=== PATIENT | male | born 1965 | race Caucasian/White ===

== ENCOUNTER 2016-12-13 12:53 | Emergency (ER) | payer SELFPAY ==
[~2016-12-13] VITALS: Ht 185.4 cm; Wt 58.6 kg
[~2016-12-13 12:53] MED LIST: MESA800 PO; OXYC5 PO; PANT40IN3 PO; PRED20 PO; PROM25TA5 PO; ZOFR8TAB4 PO
[2016-12-13 13:02] VITALS: BP 115/80; PULSE 107; RESP 16; TEMP 98.3; O2SAT 98
[2016-12-13 13:09] VITALS: BP 124/73; PULSE 96; RESP 18; O2SAT 100
[2016-12-13] MEDS ORDERED: ONDANSETRON HCL 4 MG/2 ML VIAL IVP ONE (13:30)
[2016-12-13] MEDS ORDERED: SODIUM CHLORIDE 0.9% FLUSH 10 ML FLUSH IV FLUSH PRN (13:30)
[2016-12-13] MEDS ORDERED: SODIUM CHLOR 0.9% 1000 ML INJ 1,000 ML IV ONE (13:30)
--- NOTE | 2016-12-13 13:31 | PD ---
HPI Chief Complaint: Abdominal Pain Time Seen by Provider: 13:15 Travel History International Travel<30 days: No Contact w/Intl Traveler<30days: No Traveled to known affect area: No History of Present Illness HPI This patient complains of abdominal pain. Location is diffuse throughout the entire abdomen. He feels distended. He has history of Crohn's disease and is a daily alcohol drinker. He admits to drinking alcohol today. Denies drug use. He's not had vomiting or diarrhea or bleeding or fever. Symptoms severity is moderate. No alleviating factors. Duration is 3 days PFSH Past Medical History Hx Anticoagulant Therapy: No Asthma: Yes Blood Disorders: No Anxiety: Yes Depression: Yes Cancer: No Cardiovascular Problems: No COPD: No Diabetes: No Diminished Hearing: No Endocrine: No Gastrointestinal Disorders: Yes (CROHNS) Genitourinary: No Immune Disorder: No Inguinal Hernia: Yes Implanted Vascular Access Dvce: No Musculoskeletal: Yes (BILAT KNEES.) Neurologic: No Psychiatric: Yes (denies currently ) Reproductive: No Respiratory: Yes Immunizations Current: Yes Pancreatitis: Yes Tetanus Vaccination: Unknown Influenza Vaccination: No Past Surgical History Abdominal Surgery: Yes (COLON RESECTION DUE TO CROHNS) Pacemaker: No Tonsillectomy: Yes Other Surgery: Yes (TONSILECTOMY, CHRON'S DISEASE) Social History Alcohol Use: Yes (2 DAILY) Tobacco Use: Yes (1 1/2 PPD) Substance Use: No Allergies-Medications (Allergen,Severity, Reaction): Coded Allergies: Tetanus Toxoid (Verified Allergy, Severe, Nausea/Vomiting, 12/13/16) Reported Meds & Prescriptions Reported Meds & Active Scripts Active No Active Prescriptions or Reported Medications Review of Systems General / Constitutional: No: Fever Eyes: No: Visual changes HENT: No: Headaches Cardiovascular: No: Chest Pain or Discomfort Respiratory: No: Shortness of Breath Gastrointestinal: Positive: Nausea, Abdominal Pain Genitourinary: No: Dysuria Musculoskeletal: No: Pain Skin: No Rash Neurologic: No: Weakness Psychiatric: Positive: Substance Abuse, No: Depression Endocrine: No: Polydipsia Hematologic/Lymphatic: No: Easy Bruising Physical Exam Narrative GENERAL: Well-nourished, well-developed patient in no apparent distress. SKIN: Focused skin assessment reveals no rash and nodules. Skin is Warm and dry. HEAD: Atraumatic. Normocephalic. EYES: Pupils equal and round. No scleral icterus. No injection or drainage. ENT: No nasal bleeding or discharge. Mucous membranes pink and moist. NECK: Trachea midline. No JVD. CARDIOVASCULAR: Regular rate and rhythm. No murmur appreciated. RESPIRATORY: No accessory muscle use. Clear to auscultation. Breath sounds equal bilaterally. GASTROINTESTINAL: Abdomen soft, mild distention and vague tenderness throughout but no rebound or guarding. Hepatic and splenic margins not palpable. MUSCULOSKELETAL: No obvious deformities. No clubbing. No cyanosis. No edema. NEUROLOGICAL: Awake and alert. No obvious cranial nerve deficits. Motor grossly within normal limits. Normal speech. PSYCHIATRIC: Appropriate mood and affect; insight and judgment normal. Data Data Last Documented VS Vital Signs Date Time Temp Pulse Resp B/P Pulse Ox O2 Delivery O2 Flow Rate FiO2 12/13/16 14:26 88 20 118/61 99 Room Air 12/13/16 13:02 98.3 Orders Complete Blood Count With Diff (12/13/16 13:22) Comprehensive Metabolic Panel (12/13/16 13:22) Lipase (12/13/16 13:22) Prothrombin Time / Inr (Pt) (12/13/16 13:22) Act Partial Throm Time (Ptt) (12/13/16 13:22) Ct Abd/Pel W Iv Contrast(Rout) (12/13/16 13:22) Iv Access Insert/Monitor (12/13/16 13:22) Ecg Monitoring (12/13/16 13:22) Oximetry (12/13/16 13:22) Sodium Chloride 0.9% Flush (Ns Flush) (12/13/16 13:30) Alcohol (Ethanol) (12/13/16 13:22) Sodium Chlor 0.9% 1000 Ml Inj (Ns 1000 M (12/13/16 13:30) Ondansetron Inj (Zofran Inj) (12/13/16 13:30) Iohexol 350 Inj (Omnipaque 350 Inj) (12/13/16 14:15) Potassium Chloride Eff (K-Lyte Cl Eff) (12/13/16 15:15) Labs Laboratory Tests Test 12/13/16 13:30 White Blood Count 13.7 TH/MM3 Red Blood Count 3.53 MIL/MM3 Hemoglobin 10.6 GM/DL Hematocrit 32.7 % Mean Corpuscular Volume 92.6 FL Mean Corpuscular Hemoglobin 30.1 PG Mean Corpuscular Hemoglobin 32.5 % Concent Red Cell Distribution Width 15.3 % Platelet Count 236 TH/MM3 Mean Platelet Volume 8.2 FL Neutrophils (%) (Auto) 77.2 % Lymphocytes (%) (Auto) 10.4 % Monocytes (%) (Auto) 7.8 % Eosinophils (%) (Auto) 1.9 % Basophils (%) (Auto) 2.7 % Neutrophils # (Auto) 10.5 TH/MM3 Lymphocytes # (Auto) 1.4 TH/MM3 Monocytes # (Auto) 1.1 TH/MM3 Eosinophils # (Auto) 0.3 TH/MM3 Basophils # (Auto) 0.4 TH/MM3 CBC Comment DIFF FINAL Differential Comment Prothrombin Time 14.3 SEC Prothromb Time International 1.3 RATIO Ratio Activated Partial 33.3 SEC Thromboplast Time Sodium Level 143 MEQ/L Potassium Level 2.7 MEQ/L Chloride Level 109 MEQ/L Carbon Dioxide Level 21.4 MEQ/L Anion Gap 13 MEQ/L Blood Urea Nitrogen 6 MG/DL Creatinine 0.63 MG/DL Estimat Glomerular Filtration 134 ML/MIN Rate Random Glucose 81 MG/DL Calcium Level 7.3 MG/DL Protein Corrected Calcium 7.6 MG/DL Total Bilirubin 0.5 MG/DL Aspartate Amino Transf 72 U/L (AST/SGOT) Alanine Aminotransferase 38 U/L (ALT/SGPT) Alkaline Phosphatase 356 U/L Total Protein 6.6 GM/DL Albumin 2.6 GM/DL Lipase 131 U/L Ethyl Alcohol Level 237 MG/DL MDM Medical Decision Making Medical Screen Exam Complete: Yes Emergency Medical Condition: Yes Medical Record Reviewed: Yes Differential Diagnosis Colitis, ileus, cholecystitis Narrative Course I have reviewed the patient's electronic medical record. He's been here for abdominal pain multiple times. He has had colitis and pancreatitis in the past IV placed CBC is reviewed Metabolic profile shows hypokalemia of 2.7 which is replaced orally LFTs show minor elevation of transaminase with normal bilirubin Lipase is normal Coagulation studies are normal Alcohol level is elevated indicating acute intoxication CT of abdomen and pelvis with IV contrast shows moderate ascites with no obstruction or intestinal inflammation I gave him IV Zofran and 1 L normal saline IV bolus Potassium is replaced and we discussed his drinking with liver damage causing ascites Stable for outpatient follow-up Patient downplays his drinking in shows no interest in considering rehabilitation or cutting back Therefore expect his disease to progress Should follow-up with primary care and GI Diagnosis Primary Impression: Ascites due to alcoholic cirrhosis Additional Impressions: Alcohol intoxication Qualified Code: F10.920 - Alcohol intoxication, uncomplicated Hypokalemia Additional Instructions: The patient was advised to follow up with their primary care physician and GI physician return if they worsen. Consider [facility] alcohol rehabilitation services Avoid Tylenol and Motrin containing products Med/Other Pt SpecificInfo: Prescription(s) given Scripts Potassium Chloride ER (K-Tab)20 Meq Tab40 Meq PO ONCE #2 TAB Ref 0 Prov:Delfino Hodges MD 12/13/16 Disposition: 01 DISCHARGE HOME Condition: Stable Delfino Hodges MD Dec 13, 2016 13:31
[2016-12-13 13:49] LABS: AUTOMATED NEUTROPHIL # 10.5 TH/MM3 (1.8-7.7); BASOPHIL # 0.4 TH/MM3 (0-0.2); BASOPHIL % 2.7 % (0.0-2.0); EOSINOPHIL # 0.3 TH/MM3 (0-0.4); EOSINOPHIL % 1.9 % (0.0-4.0); HEMATOCRIT 32.7 % (39.0-51.0); LYMPH % 10.4 % (9.0-44.0); LYMPHOCYTE # 1.4 TH/MM3 (1.0-4.8); MEAN CELL VOLUME 92.6 FL (80.0-100.0); MEAN CORPUSCULAR HEMOGLOBIN 30.1 PG (27.0-34.0); MEAN CORPUSCULAR HGB CONC 32.5 % (32.0-36.0); MONO % 7.8 % (0.0-8.0); NEUT % 77.2 % (16.0-70.0); PLATELET COUNT 236 TH/MM3 (150-450); RED BLOOD COUNT 3.53 MIL/MM3 (4.50-5.90); RED CELL DISTRIBUTION WIDTH 15.3 % (11.6-17.2); WHITE BLOOD COUNT 13.7 TH/MM3 (4.0-11.0)
[2016-12-13 13:50] VITALS: O2SAT 97
[2016-12-13 13:50] LABS: HEMO FLAGS DIFF FINAL
[2016-12-13 14:02] LABS: APTT (PATIENT) 33.3 SEC (24.3-30.1); INTERNATIONAL NORMALIZED RATIO 1.3 RATIO; PROTHROMBIN TIME - PATIENT 14.3 SEC (9.8-11.6)
[2016-12-13 14:11] LABS: BICARBONATE 21.4 MEQ/L (21.0-32.0); CALCIUM-PROTEIN CORRECTED 7.6 MG/DL (8.5-10.1); TOTAL BILIRUBIN ADULT 0.5 MG/DL (0.2-1.0)
[2016-12-13 14:13] LABS: POTASSIUM 2.7 MEQ/L (3.5-5.1)
[2016-12-13] MEDS ORDERED: IOHEXOL 350 MG/ML 10 ML VIAL (for RAD DIAG) IV ONE (14:15)
[2016-12-13 14:26] VITALS: BP 118/61; PULSE 88; RESP 20; O2SAT 99
--- NOTE | 2016-12-13 14:52 | RADHPO ---
EXAM DATE/TIME: 12/13/2016 14:03 [facility] COMPARISON: CT ABDOMEN & PELVIS W CONTRAST, February 19, 2016, 15:58. INDICATIONS : Diffuse abdominal pain. IV CONTRAST: 95 cc Omnipaque 350 (iohexol) IV ORAL CONTRAST: No oral contrast ingested. RADIATION DOSE: 5.74 CTDIvol (mGy) MEDICAL HISTORY : Crohn's disease. Pancreatitis. SURGICAL HISTORY : Colon resection. ENCOUNTER: Initial ACUITY: 2 weeks PAIN SCALE: 10/10 LOCATION: abdomen/pelvis TECHNIQUE: Volumetric scanning of the abdomen and pelvis was performed. Using automated exposure control and ad justment of the mA and/or kV according to patient size, radiation dose was kept as low as reasonably achievable to obtain optimal diagnostic quality images. FINDINGS: Examination is abnormal demonstrating moderate amount of ascites diffusely throughout the abdomen and pelvis. No calcified gallstones. The liver has a homogeneous pattern of enhancement. Mild diffuse fatty change. Spleen and pancreas is intact. The kidneys are normal in configuration. Nonobstruct ing stone lower pole collecting system on the right side. Loops of small and large bowel are normal in diameter. Anastomosis suture in the right lower quadrant. Urinary bladder margins are smooth. T here is a right inguinal hernia and ascites extends into the right inguinal hernia off the field-of-v iew of the exam. The visualized lower lungs are clear. Wide windows for bony detail demonstrate the osseous structures to be grossly intact. CONCLUSION: 1. Moderate amount of ascites in the abdomen and pelvis. 2. Large-sized right inguinal hernia with ascites extending into the hernia. 3. No dilated loops of small or large bowel. Lalo Heard MD on December 13, 2016 at 14:47 Board Certified Radiologist. This report was verified electronically.
[2016-12-13] MEDS ORDERED: POTA1TAB4 PO (15:02)
[2016-12-13 15:08] VITALS: BP 120/68; PULSE 87; RESP 18; O2SAT 98
[2016-12-13] MEDS ORDERED: POTASSIUM CHLORIDE 25 MEQ EFFERVESCENT TAB PO ONE (15:15)
== END 2016-12-13 15:26 | disposition home or self-care (01) ==
LOC: PHED 12:53
DX: K70.31 Alcoholic cirrhosis of liver with ascites (principal); F10.920 Alcohol use, unspecified with intoxication, uncomplicated; E87.6 Hypokalemia; J45.909 Unspecified asthma, uncomplicated; F17.210 Nicotine dependence, cigarettes, uncomplicated
CPT/HCPCS: 74177; 80053; 80307; 83690; 85025; 85610; 85730; 96361; 96374; 99285; J2405; J7030; Q9967

== ENCOUNTER 2017-01-04 17:39 | Inpatient (IN) | payer SELFPAY ==
[2017-01-04] VITALS (8 sets, daily range): BP systolic 98–115; BP diastolic 65–74; PULSE 74–110; RESP 18–20; TEMP 98.7; O2SAT 98–100
[~2017-01-04] VITALS: Ht 182.9 cm; Wt 59.8 kg
[~2017-01-04 17:39] MED LIST changes: -MESA800 PO; -OXYC5 PO; -PANT40IN3 PO; +POTA1TAB4 PO; -PRED20 PO; -PROM25TA5 PO; -ZOFR8TAB4 PO
[2017-01-04] MEDS ORDERED: MESA250 PO (18:06)
[2017-01-04] MEDS ORDERED: FURO40TA PO (18:06)
[2017-01-04] MEDS ORDERED: SODIUM CHLOR 0.9% 1000 ML INJ 1,000 ML IV ONE (18:15)
[2017-01-04 18:27] LABS: AUTOMATED NEUTROPHIL # 7.6 TH/MM3 (1.8-7.7); BASOPHIL # 0.1 TH/MM3 (0-0.2); BASOPHIL % 0.5 % (0.0-2.0); EOSINOPHIL # 0.2 TH/MM3 (0-0.4); EOSINOPHIL % 1.7 % (0.0-4.0); HEMATOCRIT 28.7 % (39.0-51.0); HEMO FLAGS DIFF FINAL; LYMPH % 12.3 % (9.0-44.0); LYMPHOCYTE # 1.3 TH/MM3 (1.0-4.8); MEAN CELL VOLUME 89.4 FL (80.0-100.0); MEAN CORPUSCULAR HEMOGLOBIN 29.3 PG (27.0-34.0); MEAN CORPUSCULAR HGB CONC 32.8 % (32.0-36.0); MONO % 11.2 % (0.0-8.0); NEUT % 74.3 % (16.0-70.0); PLATELET COUNT 136 TH/MM3 (150-450); RED BLOOD COUNT 3.21 MIL/MM3 (4.50-5.90); RED CELL DISTRIBUTION WIDTH 15.6 % (11.6-17.2); WHITE BLOOD COUNT 10.4 TH/MM3 (4.0-11.0)
[2017-01-04] MEDS ORDERED: ONDANSETRON HCL 4 MG/2 ML VIAL IV PUSH ONE (18:30)
[2017-01-04] MEDS ORDERED: PANTOPRAZOLE SODIUM 40 MG VIAL IV PUSH ONE ×2 (18:30→20:00)
[2017-01-04] MEDS ORDERED: MORPHINE SULFATE 8 MG/ML INJ IV PUSH ONE ×2 (18:30→20:45)
[2017-01-04 18:39] LABS: BLOOD, URINE LARGE (NEG); GLUCOSE,URINE 100 mg/dL (NEG); KETONE, URINE TRACE mg/dL (NEG); NITRITE,URINE NEG (NEG)
[2017-01-04 18:43] LABS: URINE COLOR AMBER (YELLW/STRAW)
[2017-01-04 18:46] LABS: RBC, URINE 100-200 /hpf (0-3)
[2017-01-04 18:47] LABS: ALKALINE PHOSPHATASE 376 U/L (45-117); ALT (GPT) 68 U/L (12-78); AMYLASE 80 U/L (25-115); ANION GAP 11 MEQ/L (5-15); AST (GOT) 139 U/L (15-37); BICARBONATE 28.7 MEQ/L (21.0-32.0); BLOOD UREA NITROGEN 6 MG/DL (7-18); CHLORIDE 95 MEQ/L (98-107); GLOMERULAR FILTRATION RATE 87 ML/MIN (>89); SODIUM (NA) 135 MEQ/L (136-145); TOTAL BILIRUBIN ADULT 3.6 MG/DL (0.2-1.0)
[2017-01-04 18:47] LABS: CALCIUM OXALATE CRYSTALS,URINE MOD /hpf; COMMENT (UR) CULTURE INDICATED; CULTURE IF INDICATED CULTURE INDICATED; SQUAMOUS EPITHELIAL CELL URINE 0-5 /hpf (0-5)
[2017-01-04 18:48] LABS: WHITE BLOOD CELL CAST, URINE 0-2 /lpf
[2017-01-04 18:50] LABS: POTASSIUM 2.4 MEQ/L (3.5-5.1)
[2017-01-04 19:10] LABS: INTERNATIONAL NORMALIZED RATIO 1.6 RATIO; PROTHROMBIN TIME - PATIENT 18.2 SEC (9.8-11.6)
--- NOTE | 2017-01-04 19:41 | PD ---
HPI Chief Complaint: GI Complaint Time Seen by Provider: 17:54 Travel History International Travel<30 days: No Contact w/Intl Traveler<30days: No Traveled to known affect area: No History of Present Illness HPI This is a 51-year-old male patient with a past medical history of Crohn's disease pancreatitis and gastroesophageal reflux disease small bowel obstruction alcoholic cirrhosis who presents with a complaint of abdominal pain that has persisted for one month. Patient also notes recurrent episodes of vomiting over the past 1 month . Patient states he's been taking over-the- counter analgesics for the pain with minimal improvement in pain. Patient notes the pain to be more severe over the last 2 weeks. She notes a decreased appetite and chills but denies fever. Patient denies vomiting blood or bloody stools chest pain or shortness of breath. Patient states he last consumed alcohol 4 months ago. She denies recent use of drugs. PFSH Past Medical History Hx Anticoagulant Therapy: No Asthma: Yes Blood Disorders: No Anxiety: Yes Depression: Yes Cancer: No Cardiovascular Problems: No COPD: No Diabetes: No Diminished Hearing: No Endocrine: No Gastrointestinal Disorders: Yes (CROHNS) Genitourinary: No Immune Disorder: No Inguinal Hernia: Yes Implanted Vascular Access Dvce: No Musculoskeletal: Yes (BILAT KNEES.) Neurologic: No Psychiatric: Yes (denies currently ) Reproductive: No Respiratory: Yes Immunizations Current: Yes Pancreatitis: Yes Tetanus Vaccination: Unknown Influenza Vaccination: No ?: Not Past Surgical History Abdominal Surgery: Yes (COLON RESECTION DUE TO CROHNS) Pacemaker: No Tonsillectomy: Yes Other Surgery: Yes (TONSILECTOMY, CHRON'S DISEASE) Social History Alcohol Use: No (quit 4 months ago) Tobacco Use: Yes (1 PPD) Substance Use: No Allergies-Medications (Allergen,Severity, Reaction): Coded Allergies: Tetanus Toxoid (Verified Allergy, Severe, Nausea/Vomiting, 01/04/17) Reported Meds & Prescriptions Reported Meds & Active Scripts Active K-Tab (Potassium Chloride) 20 Meq Tab 40 Meq PO ONCE Reported Pentasa (Mesalamine) 250 Mg Caper 1,000 Mg PO QID Furosemide 40 Mg Tab 40 Mg PO DAILY Review of Systems ROS Limitations: Clinical Condition General / Constitutional: Positive: Chills, Weight Loss, Other (decreased appetite), No: Fever, Weight Gain Eyes: No: Diploplia, Blurred Vision, Photophobia, Drainage, Redness, Foreign Body Sensation, Pain, Tearing, Blind Spots, Visual changes, Blindness, Other HENT: No: Headaches, Vertigo, Lightheadedness, Sore Throat, Rhinitis, Rhinorrhea, Congestion, Nosebleed, Neck Stiffness, Neck Pain, Masses, Gingival Bleeding, Dental Difficulties, Ear Discharge, Earache, Other Cardiovascular: No: Chest Pain or Discomfort, Palpitations, Irregular Rhythm, Tachycardia, Diaphoresis, Syncope, Dyspnea on exertion, Varicosities, Edema, Cyanosis, Varicosities, Phlebitis, Claudication, Other Respiratory: No: Cough, Shortness of Breath, Wheezing, Sneezing, Orthopnea, Hemoptysis, Stridor, Night Sweats, Pleuritic Pain, Other Gastrointestinal: Positive: Nausea, Vomiting, Abdominal Pain, No: Diarrhea, Hematemesis, Hematochezia, Constipation, Changes in Bowel Habits, Indigestion, Dysphagia, Loss of Appetite, Other Genitourinary: No: Urgency, Frequency, Dysuria, Nocturia, Hematuria, Decreased Urinary Output, Oliguria, Hesitancy, Dribbling, Incontinence, Pelvic Pain, Flank Pain, Dyspareunia, Discharge, Dysmenorrhea, Menorrhagia, Metorrhagia, Vaginal Bleeding, Other Musculoskeletal: No: Myalgias, Arthralgias, Limited ROM, Weakness, Cramping, Edema, Pain, Atrophy, Other Skin: No Rash, No Itching, No Dryness, No Lumps, No Hives, No Change in Pigmentation, No Change in nails, No Alopecia, No Lesions, No Breast Lumps, No Breast Tenderness, No Breast Swelling, No Other Neurologic: No: Weakness, Dizziness, Syncope, Focal Abnormalities, Coordination Problem, Tremor, Ataxia, Headache, Change in Mentation, Slurred Speech, Paresthesia, Incontinence, Seizures, Sensory Disturbance, Other Psychiatric: No: Anxiety, Depression, Suicidal Ideations, Disorder of Thought, Mood Disorder, Substance Abuse, Homicidal Ideation, Other Endocrine: No: Heat Intolerance, Cold Intolerance, Polyuria, Polydipsia, Other Hematologic/Lymphatic: No: Easy Bruising, Lymph Node Enlargement, Other Physical Exam Exam Limitations: Clinical Condition Narrative GENERAL: A thin 51-year-old male in moderate distress SKIN: Focused skin assessment warm/dry.no lesions no cyanosis no erythema HEAD: Atraumatic. Normocephalic. EYES: Pupils equal and round and reactive. Sclerae is anicteric No injection or drainage. ENT: No nasal bleeding or discharge. Mucous membranes are dry NECK: Trachea midline. No JVD. CARDIOVASCULAR: S1-S2 appreciated. Regular rate and rhythm. No murmur appreciated. Pulses normal throughout. RESPIRATORY: No accessory muscle use. Clear to auscultation. Breath sounds equal bilaterally. GASTROINTESTINAL: Abdomen is nondistended bowel guarding noted in the mist to palpation in the right lower quadrant and epigastric stool dark and guaiac positive MUSCULOSKELETAL: No obvious deformities. No clubbing. No cyanosis. No edema. NEUROLOGICAL: Awake and alert and oriented 3.. No obvious cranial nerve deficits. Motor and sensory exam grossly within normal limits. Normal speech. No meningeal signs. PSYCHIATRIC: Appropriate mood and affect; insight and judgment normal. No suicidal or homicidal ideation. Data Data Last Documented VS Vital Signs Date Time Temp Pulse Resp B/P Pulse Ox O2 Delivery O2 Flow Rate FiO2 01/04/17 18:35 101 20 104/65 99 Room Air 01/04/17 17:43 98.7 Orders Complete Blood Count With Diff (01/04/17 18:10) Comprehensive Metabolic Panel (01/04/17 18:10) Direct Bilirubin (01/04/17 18:10) Urinalysis - C+S If Indicated (01/04/17 18:10) Lipase (01/04/17 18:10) Amylase (01/04/17 18:10) Sodium Chlor 0.9% 1000 Ml Inj (Ns 1000 M (01/04/17 18:15) Prothrombin Time / Inr (Pt) (01/04/17 18:16) Morphine Inj (Morphine Inj) (01/04/17 18:30) Ondansetron Inj (Zofran Inj) (01/04/17 18:30) Pantoprazole Inj (Protonix Inj) (01/04/17 18:30) Urine Culture (01/04/17 18:26) Electrocardiogram (01/04/17 ) Ct Abd/Pel W Iv Contrast(Rout) (01/04/17 ) Potassium Chlor 10 Meq Premix (Kcl 10 Me (01/04/17 19:30) Ckmb (Isoenzyme) Profile (01/04/17 18:10) Troponin I (01/04/17 18:10) Ammonia (01/04/17 19:44) Oral Contrast - Adult (01/04/17 19:51) Diatrizoate Liq (Md Moore Liq) (01/04/17 19:51) Pantoprazole Inj (Protonix Inj) (01/04/17 20:00) Type And Screen (01/04/17 19:56) Labs Laboratory Tests Test 01/04/17 01/04/17 18:10 18:26 White Blood Count 10.4 TH/MM3 Red Blood Count 3.21 MIL/MM3 Hemoglobin 9.4 GM/DL Hematocrit 28.7 % Mean Corpuscular Volume 89.4 FL Mean Corpuscular Hemoglobin 29.3 PG Mean Corpuscular Hemoglobin 32.8 % Concent Red Cell Distribution Width 15.6 % Platelet Count 136 TH/MM3 Mean Platelet Volume 8.7 FL Neutrophils (%) (Auto) 74.3 % Lymphocytes (%) (Auto) 12.3 % Monocytes (%) (Auto) 11.2 % Eosinophils (%) (Auto) 1.7 % Basophils (%) (Auto) 0.5 % Neutrophils # (Auto) 7.6 TH/MM3 Lymphocytes # (Auto) 1.3 TH/MM3 Monocytes # (Auto) 1.2 TH/MM3 Eosinophils # (Auto) 0.2 TH/MM3 Basophils # (Auto) 0.1 TH/MM3 CBC Comment DIFF FINAL Differential Comment Prothrombin Time 18.2 SEC Prothromb Time International 1.6 RATIO Ratio Sodium Level 135 MEQ/L Potassium Level 2.4 MEQ/L Chloride Level 95 MEQ/L Carbon Dioxide Level 28.7 MEQ/L Anion Gap 11 MEQ/L Blood Urea Nitrogen 6 MG/DL Creatinine 0.92 MG/DL Estimat Glomerular Filtration 87 ML/MIN Rate Random Glucose 115 MG/DL Calcium Level 8.1 MG/DL Total Bilirubin 3.6 MG/DL Direct Bilirubin 2.3 MG/DL Aspartate Amino Transf 139 U/L (AST/SGOT) Alanine Aminotransferase 68 U/L (ALT/SGPT) Alkaline Phosphatase 376 U/L Total Protein 7.2 GM/DL Albumin 2.6 GM/DL Amylase Level 80 U/L Lipase 307 U/L Urine Color THOMAS Urine Turbidity CLEAR Urine pH 7.0 Urine Specific [place] 1.020 Urine Protein TRACE mg/dL Urine Glucose (UA) 100 mg/dL Urine Ketones TRACE mg/dL Urine Occult Blood LARGE Urine Nitrite NEG Urine Bilirubin MOD Urine Leukocyte Esterase TRACE Urine RBC 100-200 /hpf Urine WBC 3-5 /hpf Urine WBC Clumps OCC Urine Squamous Epithelial 0-5 /hpf Cells Urine Calcium Oxalate Crystals MOD /hpf Urine Bacteria NONE /hpf Urine White Blood Cell Casts 0-2 /lpf Microscopic Urinalysis Comment CULTURE INDICATED MDM Medical Decision Making Medical Screen Exam Complete: Yes Emergency Medical Condition: Yes Medical Record Reviewed: Yes Interpretation(s) EKG shows low voltage artifact R-wave progression in anterior leads WBC shows normal white count with a left shift potassium is 2.4 LFTs increased ammonia level pending UA shows leukocytes and no bacteria on culture to be sent And given a total of 80 mg of Protonix IV 2 mg of morphine IV 4 mg of Zofran IV CT scan of the abdomen and pelvis with oral and IV contrast ordered Differential Diagnosis Differential diagnoses small bowel obstruction and Crohn's exacerbation and acute pancreatitis hypokalemic alcoholic liver disease GERD urinary tract infection Narrative Course 51-year-old with a past medical history of Crohn disease pancreatitis small bowel obstruction alcoholic liver disease presents with a complaint of a one- month history of pain worse in the last 2 weeks patient given morphine and Zofran while in the ER with some improvement in pain potassium 2.4K were ordered guaiac positive for blood atenolol of 80 of Protonix IV given EKG shows sinus rhythm low voltage poor R-wave progression in anterior leads no acute ST changes troponin is negative type and screen ordered CT of the abdomen and pelvis with oral and IV contrast ordered patient signed out to Dr. Varner to review CT results continue to correct potassium further To consult Gi and to admit patient to an in patient bed if there is a surgical cause of the abdominal pain then surgery should be consulted from the ER. Diagnosis Primary Impression: Intractable abdominal pain Additional Impressions: Liver disease Rectal bleeding Kylie Morrow MD Jan 04, 2017 19:41
[2017-01-04] MEDS ORDERED: DIATRIZOATE MEGLUM/DIATRIZOATE SOD 9 ML CUP ONE (19:51)
[2017-01-04 20:14] LABS: CREATINE KINASE 101 U/L (39-308)
[2017-01-04] MEDS ORDERED: PROCHLORPERAZINE INJ 10 MG/2 ML VIAL IV PUSH ONE (20:30)
[2017-01-04] MEDS ORDERED: MORPHINE SULFATE 4 MG/ML INJ IV PUSH ONE (20:30)
[2017-01-04 20:36] LABS: CKMB 0.7 NG/ML (0.5-3.6)
[2017-01-04] MEDS ORDERED: ONDANSETRON HCL 4 MG/2 ML VIAL IVP PRN (20:45)
[2017-01-04] MEDS ORDERED: SODIUM CHLORIDE 0.9% FLUSH 10 ML FLUSH IV FLUSH PRN (20:45)
[2017-01-04] MEDS ORDERED: NALOXONE HCL 0.4 MG/ML AMP IV PRN (20:45)
[2017-01-04] MEDS: POTASSIUM CHLOR 10 MEQ PREMIX 100 ML IV SCH ×3 (20:54→23:11)
[2017-01-04] MEDS ORDERED: IOHEXOL 350 MG/ML 10 ML VIAL (for RAD DIAG) IV ONE (20:57)
--- NOTE | 2017-01-04 21:35 | RADRPT ---
EXAM DATE/TIME: 01/04/2017 20:57 [facility] COMPARISON: CT ABDOMEN & PELVIS W CONTRAST, December 13, 2016, 14:03. INDICATIONS : Right lower quadrant and epigastric abdominal pain. IV CONTRAST: 100 cc Omnipaque 350 (iohexol) IV ORAL CONTRAST: Prescribed oral contrast ingested. RADIATION DOSE: 5.29 CTDIvol (mGy) MEDICAL HISTORY : Pancreatitis. Crohns disease. SURGICAL HISTORY : Colon resection. ENCOUNTER: Initial ACUITY: 1 month PAIN SCALE: 9/10 LOCATION: abdomen TECHNIQUE: Volumetric scanning of the abdomen and pelvis was performed. Using automated exposure control and ad justment of the mA and/or kV according to patient size, radiation dose was kept as low as reasonably achievable to obtain optimal diagnostic quality images. DICOM format image data is available electro nically for review and comparison. FINDINGS: LOWER LUNGS: The visualized lower lungs are clear. LIVER: The liver remains diffusely prominent and mildly inhomogeneous with diffuse moderate steatosis. There is no focal mass or ductal dilatation. The gallbladder is stable in appearance a small amount of dat rounding fluid. There is no dilation of the biliary tree. No calcified gallstones. SPLEEN: Normal size without lesion. PANCREAS: Within normal limits. KIDNEYS: Normal in size and shape. There is no focal mass or hydronephrosis. Small nonobstructing calculi are present in the right kidney. ADRENAL GLANDS: Within normal limits. VASCULAR: There is no aortic aneurysm. BOWEL/MESENTERY: There are multiple loops of borderline dilated proximal small bowel with multiple air-fluid levels. T here is a loop of mildly dilated small bowel in the right lower abdomen and upper pelvis with air-flu id level. There are multiple mildly prominent lymph nodes in the central mesentery without significan t change. Gas and stool is noted segmentally in the colon. There is wall thickening involving the srinivasa cending colon measuring up to 1 cm. There are postoperative changes involving the descending colon. ABDOMINAL WALL: Within normal limits. RETROPERITONEUM: There is no lymphadenopathy. BLADDER: No wall thickening or mass. REPRODUCTIVE: Within normal limits. INGUINAL: Ascitic fluid extends via a right inguinal hernia into the upper scrotum. MUSCULOSKELETAL: Within normal limits for patient age. CONCLUSION: 1. Abnormal bowel gas pattern with air-fluid levels and least one loop of mildly dilated small bowel in the right lower quadrant. This could represent an ileus or early small bowel obstruction. 2. Portions of the ascending colon are abnormal with wall thickening. Could indicate active Crohn's d isease. 3. The liver remains prominent with moderate steatosis. 4. Nonobstructing small right renal calculi. 5. Small amount of ascitic fluid. Francis Franklin MD on January 04, 2017 at 21:25 Board Certified Radiologist. This report was verified electronically.
[2017-01-04] MEDS: SODIUM CHLORIDE 0.9% FLUSH 10 ML FLUSH IV FLUSH SCH (23:10)
[2017-01-05] VITALS: BP 107/70; PULSE 84; RESP 18; TEMP 97.4; O2SAT 97
[2017-01-05 00:36] LABS: HEMATOCRIT 24.1 % (39.0-51.0); REVIEW FLAG FINAL
[2017-01-05 04:00] VITALS: BP 96/62; PULSE 70; RESP 18; TEMP 99.2; O2SAT 92
[2017-01-05 06:12] LABS: BASOPHIL # 0.1 TH/MM3 (0-0.2); BASOPHIL % 1.1 % (0.0-2.0); EOSINOPHIL # 0.2 TH/MM3 (0-0.4); EOSINOPHIL % 2.1 % (0.0-4.0); HEMATOCRIT 25.9 % (39.0-51.0); HEMO FLAGS DIFF FINAL; LYMPH % 5.4 % (9.0-44.0); LYMPHOCYTE # 0.4 TH/MM3 (1.0-4.8); MEAN CELL VOLUME 90.2 FL (80.0-100.0); MEAN CORPUSCULAR HEMOGLOBIN 29.4 PG (27.0-34.0); MEAN CORPUSCULAR HGB CONC 32.6 % (32.0-36.0); MONO % 9.5 % (0.0-8.0); NEUT % 81.9 % (16.0-70.0); PLATELET COUNT 111 TH/MM3 (150-450); RED BLOOD COUNT 2.87 MIL/MM3 (4.50-5.90); RED CELL DISTRIBUTION WIDTH 15.3 % (11.6-17.2); WHITE BLOOD COUNT 7.4 TH/MM3 (4.0-11.0)
[2017-01-05 06:44] LABS: BICARBONATE 24.8 MEQ/L (21.0-32.0)
[2017-01-05 06:48] LABS: POTASSIUM 2.5 MEQ/L (3.5-5.1)
--- NOTE | 2017-01-05 07:55 | EKG ---
Date Performed: 01/04/2017 Time Performed: 19:41:39 PTAGE: 51 years EKG: Sinus rhythm SEPTAL MYOCARDIAL INFARCTION ABNORMAL ECG PREVIOUS TRACING : 02/22/2016 12.34 DOCTOR: Nitesh Loyd Interpretating Date/Time 01/05/2017 07:51:33
[2017-01-05 08:00] VITALS: BP 102/56; PULSE 81; RESP 18; TEMP 98.8; O2SAT 94
[2017-01-05] MEDS: POTASSIUM CHLOR 20 MEQ PREMIX 100 ML IV SCH ×4 (08:00→15:23)
[2017-01-05] MEDS: SODIUM CHLORIDE 0.9% FLUSH 10 ML FLUSH IV FLUSH SCH ×2 (09:00→20:57)
[2017-01-05] MEDS ORDERED: KETOROLAC TROMETHAMINE 30 MG/ML (IVP) VIAL IV PUSH ONE (10:30)
[2017-01-05 11:53] LABS: INDIRECT BILIRUBIN 1.2 MG/DL (0.0-0.8); TOTAL BILIRUBIN ADULT 3.6 MG/DL (0.2-1.0)
[2017-01-05 12:00] VITALS: BP 99/63; PULSE 81; RESP 18; TEMP 97.8; O2SAT 95
--- NOTE | 2017-01-05 12:00 | RADRPT ---
EXAM DATE/TIME: 01/05/2017 10:43 [facility] COMPARISON: CT ABDOMEN & PELVIS W CONTRAST, January 04, 2017, 20:57. INDICATIONS : Patient has had abdomen pain for two years. Had part of colon removed several years ago. He sees a do ctor at [facility] and states the doctor has said he has scar tissue where colon was r emoved. MEDICAL HISTORY : Pancreatitis. Crohns disease. SURGICAL HISTORY : Colon resection. ENCOUNTER: Subsequent ACUITY: 2 days PAIN SCORE: 6/10 LOCATION: Bilateral Abdomen. FINDINGS: Oral contrast administered for CT of the abdomen has progressed into the colon. There is no evidence of obstruction. Anastomotic suture following enterocolonic anastomosis is identified in the right lower quadrant. CT demonstrated thickened irregular wall in the distal ileum and proximal colon characteristic of active inflammatory disease. CONCLUSION: No evidence of developing obstruction. Star Patterson MD on January 05, 2017 at 11:53 Board Certified Radiologist. This report was verified electronically.
[2017-01-05 14:18] LABS: MAGNESIUM 1.3 MG/DL (1.5-2.5)
[2017-01-05 14:22] LABS: POTASSIUM 2.9 MEQ/L (3.5-5.1)
[2017-01-05] MEDS: PANTOPRAZOLE SOD 40 MG DELAYED RELEASE TAB PO SCH (15:23)
--- NOTE | 2017-01-05 15:24 | HHI.HP ---
HPI Service [facility] Primary Care Physician No Primary Care Physician Admission Diagnosis abd pain hypokalemia liver disease Diagnoses: Chief Complaint: abdominal pain Travel History International Travel<30 Days: No Contact w/Intl Traveler <30 Da: No Traveled to Known Affected Are: No History of Present Illness 51 YEAR OLD MALE Patient had 2 weeks of intractable severe mid-abdominal pain with nausea and some clear non bloody mildly bilious vomiting. No fever, chest pain or syncope. He has been admitted for evaluation of possible SBO. He has a history of Pancreatitis and Chron's and EtOH dependence Pain was relieved with morphine and toradol and aggravated by eating. He was hypokalemic and had not eating in 5 days due to his symptoms. overnight he reports increased flatus and a BM as well as resolution of pain; he would like to eat Review of Systems Constitutional: DENIES: Diaphoretic episodes, Fatigue, Fever, Weight gain, Weight loss, Chills, Dizziness, Change in appetite, Night Sweats Endocrine: DENIES: Heat/cold intolerance, Polydipsia, Polyuria, Polyphagia Eyes: DENIES: Blurred vision, Diplopia, Eye inflammation, Eye pain, Vision loss , Photosensitivity, Double Vision Ears, nose, mouth, throat: DENIES: Tinnitus, Hearing loss, Vertigo, Nasal discharge, Oral lesions, Throat pain, Hoarseness, Ear Pain, Running Nose, Epistaxis, Sinus Pain, Toothache, Odynophagia Respiratory: DENIES: Apneas, Cough, Snoring, Wheezing, Hemoptysis, Sputum production, Shortness of breath Cardiovascular: DENIES: Chest pain, Palpitations, Syncope, Dyspnea on Exertion , PND, Lower Extremity Edema, Orthopnea, Claudication Gastrointestinal: COMPLAINS OF: Abdominal pain, Diarrhea, Nausea, Vomiting, DENIES: Black stools, Bloody stools, Constipation, Difficulty Swallowing, Anorexia Genitourinary: DENIES: Sexual dysfunction, Urinary frequency, Urinary incontinence, Urgency, Hematuria, Dysuria, Nocturia, Penile Discharge, Testicular Pain, Testicular Swelling Musculoskeletal: DENIES: Joint pain, Muscle aches, Stiffness, Joint Swelling, Back pain, Neck pain Integumentary: DENIES: Abnormal pigmentation, Nail changes, Pruritus, Rash Hematologic/lymphatic: DENIES: Bruising, Lymphadenopathy Immunologic/allergic: DENIES: Eczema, Urticaria Neurologic: DENIES: Abnormal gait, Headache, Localized weakness, Paresthesias, Seizures, Speech Problems, Tremor, Poor Balance Psychiatric: DENIES: Anxiety, Confusion, Mood changes, Depression, Hallucinations, Agitation, Suicidal Ideation, Homicidal Ideation, Delusions Past Family Social History Past Medical History chron's IBD pancreatitis Past Surgical History tonsils bowel resection Reported Medications reviewed in the EMR Allergies: Coded Allergies: Tetanus Toxoid (Verified Allergy, Severe, Nausea/Vomiting, 01/04/17) Active Ordered Medications reviewed in the EMR Family History HTN Social History tobacco, etoh, Physical Exam Vital Signs Vital Signs Date Time Temp Pulse Resp B/P Pulse Ox O2 Delivery O2 Flow Rate FiO2 01/05/17 12:00 97.8 81 18 99/63 95 01/05/17 08:00 98.8 81 18 102/56 94 01/05/17 04:00 99.2 70 18 96/62 92 01/05/17 00:00 97.4 84 18 107/70 97 01/04/17 23:00 76 20 106/67 99 01/04/17 23:00 74 01/04/17 22:00 74 20 103/67 98 01/04/17 21:00 80 20 115/74 99 01/04/17 20:00 20 01/04/17 20:00 85 20 113/67 98 01/04/17 19:59 85 18 113/67 100 Room Air 01/04/17 19:25 80 20 113/67 100 01/04/17 18:35 101 20 104/65 99 Room Air 01/04/17 17:43 98.7 110 20 98/69 98 Physical Exam GENERAL: This is a well-nourished, well-developed patient, in no apparent distress. SKIN: No rashes, ecchymoses or lesions. Cool and dry. HEAD: Atraumatic. Normocephalic. No temporal or scalp tenderness. EYES: Pupils equal round and reactive. Extraocular motions intact. No scleral icterus. No injection or drainage. ENT: Nose without bleeding, purulent drainage or septal hematoma. Throat without erythema, tonsillar hypertrophy or exudate. Uvula midline. Airway patent. NECK: Trachea midline. No JVD or lymphadenopathy. Supple, nontender, no meningeal signs. CARDIOVASCULAR: Regular rate and rhythm without murmurs, gallops, or rubs. RESPIRATORY: Clear to auscultation. Breath sounds equal bilaterally. No wheezes , rales, or rhonchi. GASTROINTESTINAL: Abdomen soft, non-tender, nondistended. No hepato-splenomegaly , or palpable masses. No guarding. MUSCULOSKELETAL: Extremities without clubbing, cyanosis, or edema. No joint tenderness, effusion, or edema noted. No calf tenderness. Negative Homans sign bilaterally. NEUROLOGICAL: Awake and alert. Cranial nerves II through XII intact. Motor and sensory grossly within normal limits. Five out of 5 muscle strength in all muscle groups. Normal speech. Laboratory Laboratory Tests Test 01/04/17 01/04/17 01/04/17 01/05/17 18:10 18:26 20:20 00:00 White Blood Count 10.4 Red Blood Count 3.21 Hemoglobin 9.4 8.0 Hematocrit 28.7 24.1 Mean Corpuscular Volume 89.4 Mean Corpuscular Hemoglobin 29.3 Mean Corpuscular Hemoglobin 32.8 Concent Red Cell Distribution Width 15.6 Platelet Count 136 Mean Platelet Volume 8.7 Neutrophils (%) (Auto) 74.3 Lymphocytes (%) (Auto) 12.3 Monocytes (%) (Auto) 11.2 Eosinophils (%) (Auto) 1.7 Basophils (%) (Auto) 0.5 Neutrophils # (Auto) 7.6 Lymphocytes # (Auto) 1.3 Monocytes # (Auto) 1.2 Eosinophils # (Auto) 0.2 Basophils # (Auto) 0.1 CBC Comment DIFF FINAL Differential Comment Prothrombin Time 18.2 Prothromb Time International 1.6 Ratio Sodium Level 135 Potassium Level 2.4 Chloride Level 95 Carbon Dioxide Level 28.7 Anion Gap 11 Blood Urea Nitrogen 6 Creatinine 0.92 Estimat Glomerular Filtration 87 Rate Random Glucose 115 Calcium Level 8.1 Total Bilirubin 3.6 Direct Bilirubin 2.3 Aspartate Amino Transf 139 (AST/SGOT) Alanine Aminotransferase 68 (ALT/SGPT) Alkaline Phosphatase 376 Total Creatine Kinase 101 Creatine Kinase MB 0.7 Troponin I LESS THAN 0.02 Total Protein 7.2 Albumin 2.6 Amylase Level 80 Lipase 307 Ethyl Alcohol Level LESS THAN 3 Urine Color THOMAS Urine Turbidity CLEAR Urine pH 7.0 Urine Specific Mason 1.020 Urine Protein TRACE Urine Glucose (UA) 100 Urine Ketones TRACE Urine Occult Blood LARGE Urine Nitrite NEG Urine Bilirubin MOD Urine Leukocyte Esterase TRACE Urine RBC 100-200 Urine WBC 3-5 Urine WBC Clumps OCC Urine Squamous Epithelial 0-5 Cells Urine Calcium Oxalate Crystals MOD Urine Bacteria NONE Urine White Blood Cell Casts 0-2 Microscopic Urinalysis Comment CULTURE INDICATED Ammonia 59 Blood Type A NEGATIVE Antibody Screen NEGATIVE Test 01/05/17 01/05/17 05:30 13:50 White Blood Count 7.4 Red Blood Count 2.87 Hemoglobin 8.4 Hematocrit 25.9 Mean Corpuscular Volume 90.2 Mean Corpuscular Hemoglobin 29.4 Mean Corpuscular Hemoglobin 32.6 Concent Red Cell Distribution Width 15.3 Platelet Count 111 Mean Platelet Volume 8.7 Neutrophils (%) (Auto) 81.9 Lymphocytes (%) (Auto) 5.4 Monocytes (%) (Auto) 9.5 Eosinophils (%) (Auto) 2.1 Basophils (%) (Auto) 1.1 Neutrophils # (Auto) 6.0 Lymphocytes # (Auto) 0.4 Monocytes # (Auto) 0.7 Eosinophils # (Auto) 0.2 Basophils # (Auto) 0.1 CBC Comment DIFF FINAL Differential Comment Sodium Level 138 Potassium Level 2.5 2.9 Chloride Level 102 Carbon Dioxide Level 24.8 Anion Gap 11 Blood Urea Nitrogen 5 Creatinine 0.60 Estimat Glomerular Filtration 142 Rate Random Glucose 72 Calcium Level 7.4 Protein Corrected Calcium 8.0 Total Bilirubin 3.6 Direct Bilirubin 2.4 Indirect Bilirubin 1.2 Aspartate Amino Transf 103 (AST/SGOT) Alanine Aminotransferase 54 (ALT/SGPT) Alkaline Phosphatase 310 Total Protein 6.0 Albumin 2.2 Magnesium Level 1.3 Ammonia 49 Date/Time Procedure Status Source Growth 01/04/17 18:26 Urine Culture - Preliminary Resulted Urine Clean Catch RESULTS PENDING Result Diagram: 01/05/17 0530 01/05/17 1350 Imaging Last Impressions Abdomen X-Ray 01/05/17 0000 Signed Impressions: Service Date/Time: December 10:43 - CONCLUSION: No evidence of developing obstruction. Star Patterson MD Abdomen/Pelvis CT 01/04/17 0000 Signed Impressions: Service Date/Time: Wednesday, January 04, 2017 20:57 - CONCLUSION: 1. Abnormal bowel gas pattern with air-fluid levels and least one loop of mildly dilated small bowel in the right lower quadrant. This could represent an ileus or early small bowel obstruction. 2. Portions of the ascending colon are abnormal with wall thickening. Could indicate active Crohn's disease. 3. The liver remains prominent with moderate steatosis. 4. Nonobstructing small right renal calculi. 5. Small amount of ascitic fluid. Francis Franklin MD Assessment and Plan Problem List: (1) Hypokalemia ICD Code: E87.6 Status: Acute Plan: Replace, and follow check Magnesium (2) GERD (gastroesophageal reflux disease) ICD Code: K21.9 Status: Acute Plan: Add PPI po patient education (3) Nausea & vomiting ICD Code: R11.2 Status: Acute Plan: Resolved patient would like to advance his diet (4) Elevated LFTs ICD Code: R79.89 Status: Acute Plan: Ptn with a hx of ETOH and denies recent liberties Add US liver (5) SBO (small bowel obstruction) ICD Code: K56.69 Status: Acute Plan: appears resolved +Bm per patient advance diet and follow up IVF Physician Certification 2 Midnight Certification Type: Admission for Inpatient Services Order for Inpatient Services The services are ordered in accordance with Medicare regulations or non- Medicare payer requirements, as applicable. In the case of services not specified as inpatient-only, they are appropriately provided as inpatient services in accordance with the 2-midnight benchmark. Estimated LOS (days): 3 3 days is the estimated time the patient will need to remain in the hospital, assuming treatment plan goals are met and no additional complications. Post-Hospital Plan: Kiya Goss MD Jan 05, 2017 15:24
--- NOTE | 2017-01-05 15:36 | PD.PN.STU ---
Subjective Remarks S: patient is a 51 year old male who presents for GI consult. He states that he came in yesterday with abdominal pain that's been going on for about 2 months. In the last month, he states that the pain has gotten more severe. The pain is diffuse across his lower abdomen, and he states it radiated to his lower/mid back bilaterally. Today he state that the abdominal pain is a 1-2, with no radiation currently. He said the pain gets worse when he eats too much, but in general, there's no pattern to the abdominal pain. He states that he had dark stools 3 days ago, but denies hematemesis. He states that his stool is usually loose as a result of his Crohn's disease, but lately he's been having more solid stools he says his appetite has decreased a lot due to the abdominal pain. He denies nausea/vomiting, fever/chills, chest pain, SOB, headaches, or diarrhea. Remaining ROS unremarkable. PMH: Crohn's Disease, pancreatitis, GERD, alcoholic cirrhosis, asthma PSHx: colon resection and tonsillectomy Meds: he has been taking ibuprofen 250mg 4 tabs a day for pain for the past 2 months Allergies: tetanus toxoid SHx: 1 pack of cigarettes/day; past history of alcohol abuse, stopped drinking 3 -4 months ago. Objective Vitals Vital Signs Date Time Temp Pulse Resp B/P Pulse Ox O2 Delivery O2 Flow Rate FiO2 01/05/17 12:00 97.8 81 18 99/63 95 01/05/17 08:00 98.8 81 18 102/56 94 01/05/17 04:00 99.2 70 18 96/62 92 01/05/17 00:00 97.4 84 18 107/70 97 01/04/17 23:00 76 20 106/67 99 01/04/17 23:00 74 01/04/17 22:00 74 20 103/67 98 01/04/17 21:00 80 20 115/74 99 01/04/17 20:00 20 01/04/17 20:00 85 20 113/67 98 01/04/17 19:59 85 18 113/67 100 Room Air 01/04/17 19:25 80 20 113/67 100 01/04/17 18:35 101 20 104/65 99 Room Air 01/04/17 17:43 98.7 110 20 98/69 98 I/O 01/04/17 01/04/17 01/04/17 01/05/17 01/05/17 01/05/17 07:00 15:00 23:00 07:00 15:00 23:00 Intake Total 1000 ml 300 ml Output Total 500 ml 150 ml Balance 500 ml 150 ml Intake Oral 0 ml IV Total 1000 ml 300 ml Output Urine Total 500 ml 150 ml # Voids 1 # Bowel Movements 0 O: Gen: Well developed, appears underweight. not in acute distress HEENT: negative Neck: supple, neg LAD Heart: RRR, no murmurs rubs or gallops Lungs: CTA Abdomen: soft, nontender; nondistended. normal bowel sounds, no HSM or masses appreciated. no rebound or guarding Ext: no edema or cyanosis Neuro: alert and oriented x 3; no focal deficits. Result Diagram: 01/05/17 0530 01/05/17 1350 Other Results Laboratory Tests Test 01/04/17 01/04/17 01/04/17 01/05/17 18:10 18:26 20:20 00:00 Red Blood Count 3.21 MIL/MM3 (4.50-5.90) Hemoglobin 9.4 GM/DL 8.0 GM/DL (13.0-17.0) (13.0-17.0) Hematocrit 28.7 % 24.1 % (39.0-51.0) (39.0-51.0) Platelet Count 136 TH/MM3 (150-450) Neutrophils (%) (Auto) 74.3 % (16.0-70.0) Monocytes (%) (Auto) 11.2 % (0.0-8.0) Monocytes # (Auto) 1.2 TH/MM3 (0-0.9) Prothrombin Time 18.2 SEC (9.8-11.6) Sodium Level 135 MEQ/L (136-145) Potassium Level 2.4 MEQ/L (3.5-5.1) Chloride Level 95 MEQ/L (98-107) Blood Urea Nitrogen 6 MG/DL (7-18) Estimat Glomerular Filtration 87 ML/MIN (>89) Rate Random Glucose 115 MG/DL (74-106) Calcium Level 8.1 MG/DL (8.5-10.1) Total Bilirubin 3.6 MG/DL (0.2-1.0) Direct Bilirubin 2.3 MG/DL (0.0-0.2) Aspartate Amino Transf 139 U/L (15-37) (AST/SGOT) Alkaline Phosphatase 376 U/L (45-117) Troponin I LESS THAN 0.02 NG/ML (0.02-0.05) Albumin 2.6 GM/DL (3.4-5.0) Urine Color THOMAS (YELLW/STRAW) Urine Glucose (UA) 100 mg/dL (NEG) Urine Ketones TRACE mg/dL (NEG) Urine Occult Blood LARGE (NEG) Urine Bilirubin MOD (NEG) Urine Leukocyte Esterase TRACE (NEG) Urine RBC 100-200 /hpf (0-3) Urine WBC Clumps OCC (NONE) Urine Calcium Oxalate Crystals MOD /hpf (NONE) Ammonia 59 MCMOL/L (11-32) Test 01/05/17 01/05/17 05:30 13:50 Red Blood Count 2.87 MIL/MM3 (4.50-5.90) Hemoglobin 8.4 GM/DL (13.0-17.0) Hematocrit 25.9 % (39.0-51.0) Platelet Count 111 TH/MM3 (150-450) Neutrophils (%) (Auto) 81.9 % (16.0-70.0) Lymphocytes (%) (Auto) 5.4 % (9.0-44.0) Monocytes (%) (Auto) 9.5 % (0.0-8.0) Lymphocytes # (Auto) 0.4 TH/MM3 (1.0-4.8) Potassium Level 2.5 MEQ/L 2.9 MEQ/L (3.5-5.1) (3.5-5.1) Blood Urea Nitrogen 5 MG/DL (7-18) Random Glucose 72 MG/DL (74-106) Calcium Level 7.4 MG/DL (8.5-10.1) Protein Corrected Calcium 8.0 MG/DL (8.5-10.1) Total Bilirubin 3.6 MG/DL (0.2-1.0) Direct Bilirubin 2.4 MG/DL (0.0-0.2) Indirect Bilirubin 1.2 MG/DL (0.0-0.8) Aspartate Amino Transf 103 U/L (15-37) (AST/SGOT) Alkaline Phosphatase 310 U/L (45-117) Total Protein 6.0 GM/DL (6.4-8.2) Albumin 2.2 GM/DL (3.4-5.0) Magnesium Level 1.3 MG/DL (1.5-2.5) Ammonia 49 MCMOL/L (11-32) Imaging Last 72 hours Impressions Abdomen X-Ray 01/05/17 0000 Signed Impressions: Service Date/Time: December 10:43 - CONCLUSION: No evidence of developing obstruction. Star Patterson MD Abdomen/Pelvis CT 01/04/17 0000 Signed Impressions: Service Date/Time: Wednesday, January 04, 2017 20:57 - CONCLUSION: 1. Abnormal bowel gas pattern with air-fluid levels and least one loop of mildly dilated small bowel in the right lower quadrant. This could represent an ileus or early small bowel obstruction. 2. Portions of the ascending colon are abnormal with wall thickening. Could indicate active Crohn's disease. 3. The liver remains prominent with moderate steatosis. 4. Nonobstructing small right renal calculi. 5. Small amount of ascitic fluid. Francis Franklin MD Medications and IVs Current Medications Medications (Trade) Dose Ordered Sig/Vikki Route Start Time Stop Time Status Last Admin (NS Flush) 2 ml UNSCH PRN IV FLUSH 01/04/17 20:45 (NS Flush) 2 ml BID IV FLUSH 01/04/17 21:00 01/04/17 23:10 (Zofran Inj) 4 mg Q6H PRN IVP 01/04/17 20:45 (Narcan Inj) 0.4 mg UNSCH PRN IV 01/04/17 20:45 (Percocet 7.5-325 Mg) 1 tab Q6H PRN PO 01/05/17 13:30 (Protonix) 40 mg DAILY PO 01/05/17 14:00 A/P Assessment and Plan A/P: 1. Normocytic Anemia secondary to possible upper GI bleed - Upper EGD recommended; also can r/o varices - trend H/H; transfuse if necessary 2. Hepatic Steatosis secondary to alcohol abuse - Ct showed moderate steatosis; no ascites, jaundice, or scleral icterus seen on PE; Patient has stopped drinking; seems stable for now - monitor LFT's 3. Possible Crohn disease exacerbation - Colonoscopy recommended to rule out reoccurrence of CD 4. possible small bowel obstruction secondary to possible adhesions - past surgical history of colectomy can increase risk of adhesions. Possibly could be causing his chronic abdominal pain. - await results of EGD and colonoscopy, then go from there Discharge Planning seen, examined agree with above we will start Prednisone egd in am sbft after egd educated about complainant with medical treatment and abstinence from etoh Malik Hendricks M3 Jan 05, 2017 15:36 Elizabeth Pino MD Jan 05, 2017 17:24
[2017-01-05 16:00] VITALS: BP 111/73; PULSE 103; RESP 18; TEMP 98.4; O2SAT 98
--- NOTE | 2017-01-05 17:00 | RADRPT ---
EXAM DATE/TIME: 01/05/2017 14:13 [facility] COMPARISON: CT ABDOMEN & PELVIS W CONTRAST, January 04, 2017, 20:57. INDICATIONS : Increased lab values. MEDICAL HISTORY : Pancreatitis. Crohn's disease. Hernia, inguinal. Asthma. Depression. Anxiety. Tobacco use. SURGICAL HISTORY : Tonsillectomy. Resection of colon/intestines. Blood transfusions. ENCOUNTER: Initial ACUITY: 1 day PAIN SCORE: 0/10 LOCATION: Bilateral upper quadrant MEASUREMENTS: LIVER: 22.3 cm length COMMON DUCT: 4 mm RIGHT KIDNEY: 12.0 x 5.1 x 5.0 cm SPLEEN: 11.7 cm length FINDINGS: LIVER: Pronounced increased echogenicity consistent with steatosis. No focal mass. No biliary ductal dilatat ion. Small volume of ascites. COMMON DUCT: No intraluminal mass or stone visualized. GALLBLADDER: Moderate diffuse gallbladder wall thickening which is nonspecific in the setting of significant liver disease PANCREAS: The visualized portions are within normal limits. RIGHT KIDNEY: Small nonobstructing lower pole stone. No hydronephrosis. SPLEEN: Enlarged without focal mass CONCLUSION: Diffuse hepatic steatosis. Oc Fletcher MD on January 05, 2017 at 16:55 Board Certified Radiologist. This report was verified electronically.
[2017-01-05] MEDS: oxyCODONE/ACETAMINOPHEN 7.5 MG/325 MG TAB PO PRN (18:49)
[2017-01-05] MEDS: BISACODYL EC 5 MG TABEC PO SCH ×2 (18:49→20:57)
[2017-01-05] MEDS ORDERED: MAGNESIUM CITRATE SOLN 300 ML BTL PO ONE ×2 (19:00→22:00)
[2017-01-05 20:00] VITALS: BP 102/64; PULSE 88; RESP 18; TEMP 97.8; O2SAT 97
[2017-01-05] MEDS: methylPREDNISolone SOD SUCC 125 MG/2 ML VIAL IV PUSH SCH (20:57)
[2017-01-06] VITALS: BP 95/67; PULSE 82; RESP 16; TEMP 96.7; O2SAT 98
[2017-01-06] MEDS: oxyCODONE/ACETAMINOPHEN 7.5 MG/325 MG TAB PO PRN ×4 (01:27→20:13)
[2017-01-06 06:04] LABS: BASOPHIL % 0.1 % (0.0-2.0); EOSINOPHIL % 0.2 % (0.0-4.0); HEMATOCRIT 25.4 % (39.0-51.0); HEMO FLAGS DIFF FINAL; LYMPH % 5.8 % (9.0-44.0); LYMPHOCYTE # 0.4 TH/MM3 (1.0-4.8); MEAN CELL VOLUME 91.2 FL (80.0-100.0); MEAN CORPUSCULAR HEMOGLOBIN 30.2 PG (27.0-34.0); MEAN CORPUSCULAR HGB CONC 33.1 % (32.0-36.0); MONO % 3.4 % (0.0-8.0); NEUT % 90.5 % (16.0-70.0); PLATELET COUNT 130 TH/MM3 (150-450); RED BLOOD COUNT 2.79 MIL/MM3 (4.50-5.90); RED CELL DISTRIBUTION WIDTH 15.3 % (11.6-17.2); WHITE BLOOD COUNT 7.7 TH/MM3 (4.0-11.0)
[2017-01-06 06:13] LABS: POTASSIUM 3.4 MEQ/L (3.5-5.1)
[2017-01-06 06:28] LABS: BICARBONATE 24.2 MEQ/L (21.0-32.0); CALCIUM-PROTEIN CORRECTED 7.8 MG/DL (8.5-10.1); TOTAL BILIRUBIN ADULT 2.9 MG/DL (0.2-1.0)
[2017-01-06] MEDS: methylPREDNISolone SOD SUCC 125 MG/2 ML VIAL IV PUSH SCH ×2 (08:03→20:13)
[2017-01-06] MEDS: PANTOPRAZOLE SOD 40 MG DELAYED RELEASE TAB PO SCH (08:04)
[2017-01-06] MEDS: SODIUM CHLORIDE 0.9% FLUSH 10 ML FLUSH IV FLUSH SCH ×2 (08:06→19:43)
--- NOTE | 2017-01-06 09:42 | MB ---
cc: KAMILA BELTRAN M.D. DATE OF CONSULTATION: 01/05/2017 REFERRING PHYSICIAN: Dr. Rodriguez. DATE OF : 1965 REASON FOR CONSULTATION: Abdominal pain, melena, Crohn's disease. HISTORY OF PRESENT ILLNESS: Mr. Portillo is a 51 year old gentleman with history of Crohn's disease since his 20s, he came into the emergency room with complaints of abdominal pain, getting worse lately. The pain has been going on for almost two months. It is more severe after eating. He described the pain mostly in the lower abdomen. He also has some melanotic stools for the last four days. The patient also reports chronic diarrhea, no nausea, no vomiting, he states that he is not taking his Crohn's medication due to cost. He was briefly on Asacol after his last discharge from the hospital when he was unable to afford the medication. He states that he did not really take any medication for surgery. The patient had colonoscopy and endoscopy last year. He was found to have esophageal stricture and stricture at the anastomotic site. The pathologies showed inflammation in the bowel consistent with Crohn's disease. He also reports significant weight loss, no fever, no chills. PAST MEDICAL HISTORY: He has a history of Crohn's disease, pancreatitis, reflux, alcoholic liver disease, asthma. PAST SURGICAL HISTORY: 1. Tonsillectomy. 2. Colon resection. MEDICATIONS: Ibuprofen daily for back pain. ALLERGIES TETANUS TOXOID SOCIAL HISTORY: Smokes one pack of cigarettes per day. History of alcohol abuse. Stopped according to him three to four months ago but his toxicology showed the presence of alcohol on his last visit to the emergency room which was in December 2016. REVIEW OF SYSTEMS He denies any fever or chills, He does have weight loss. EARS, NOSE, AND THROAT: No alternation in baseline head. PULMONARY: Denies any chest pain, shortness of breath. GASTROINTESTINAL: As above. GENITOURINARY: Denies dysuria, hematuria. HEMATOLOGIC: Denies any history of anemia, breathing disorder. SKIN: No alternations, baseline skin lesions. NEUROLOGIC: No history of transient ischemic attack or cerebrovascular accident kind of symptoms. CLINICAL EXAMINATION: IN GENERAL: The patient is sitting comfortably in bed. In no acute distress. VITAL SIGNS: Blood pressure 111/73, respirations 18, pulse 84. HEAD, EYES, EARS, NOSE, AND THROAT: Pupils equal, round, reactive to light and accommodation. NECK: No jugular venous distention, no lymphadenopathy. CHEST: Clear to auscultation on palpation. CARDIOVASCULAR: S1, S2, no murmur. ABDOMEN: Soft, mildly distended. Bowel sounds are present. CENTRAL NERVOUS SYSTEM: Awake alert, oriented times three. No focal signs identified. No flapping tremor. LABORATORY: His hemoglobin is 8.4 and 9.4. His white count is 10.4, Platelet count is 111, potassium 2.9, bilirubin 3.6 with direct of 2.4, indirect 1.2, aspartate aminotransferase 103, alkaline phosphatase 310, ammonia 49, his Albumin is 2.6. RADIOLOGIC: CT of the abdomen and pelvis was done this admission, showed abnormal bowel gas patten, there was at least one loop of mildly dilated small bowel in the right lower quadrant. This most likely represents ileus or early small bowel obstructions. A portion of the ascending colon is abnormal with wall thickening which could indicate active colon disease, the liver remains prominent there is moderate steatohepatitis. Nonobstructing small right renal calculi. Small amount of ascitic fluid. IMPRESSION: Mr. Portillo is a 51 year-old gentleman with history of Crohn's disease. Status post resection secondary to bowel obstruction. Noncompliant with medications, secondary to financial reasons. Has indication of active Crohn's on his previous colonoscopy done in 2005, also on the current image. 1. Anemia. 2. Melena. 3. Possible peptic ulcer disease verus portal gastropathy. 4. His last endoscopy was negative for esophageal varices. 5. His hematologically stable at this time. 6. Elevated liver enzymes secondary to alcoholic liver disease. 7. Noncompliance. 8. Weight loss, most likely secondary to uncontrolled Crohn's disease. RECOMMENDATIONS: Upper endoscopy will be scheduled in the morning. Followed by small bowel follow through. We are going to start Solu-Medrol, case management evaluation. He will need to continue treatment for Crohn's disease as an outpatient. He was advised to call the office to help him apply for possible free drugs. Supportive care, he was advised to stop alcohol, use monitor liver function tests closely. Further recommendations will depend on the patients clinical status and the above results. MD SAMEER Rabago/moose /5:34 PM /9:42 AM
[2017-01-06 09:51] VITALS: BP 106/63; PULSE 69; RESP 14; TEMP 97.5; O2SAT 95
[2017-01-06] MEDS ORDERED: MAGNESIUM CITRATE SOLN 300 ML BTL PO ONE ×2 (12:00→18:00)
--- NOTE | 2017-01-06 13:53 | HHI.PR ---
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 Objective Vitals Vital Signs Date Time Temp Pulse Resp B/P Pulse Ox O2 Delivery O2 Flow Rate FiO2 01/06/17 09:51 97.5 69 14 106/63 95 01/06/17 02:27 18 01/06/17 00:00 96.7 82 16 95/67 98 01/05/17 20:00 97.8 88 18 102/64 97 01/05/17 16:00 98.4 103 18 111/73 98 I/O 01/05/17 01/05/17 01/05/17 01/06/17 01/06/17 01/06/17 07:00 15:00 23:00 07:00 15:00 23:00 Intake Total 300 ml 0 ml 475 ml 0 ml Output Total 150 ml 650 ml Balance 150 ml 0 ml -175 ml 0 ml Intake Oral 0 ml 0 ml 475 ml IV Total 300 ml 0 ml 0 ml Output Urine Total 150 ml 650 ml # Voids 1 # Bowel Movements 0 1 Result Diagram: 01/06/17 0454 01/06/17 0454 Imaging Last Impressions Liver Ultrasound 01/05/17 0000 Signed Impressions: Service Date/Time: December 14:13 - CONCLUSION: Diffuse hepatic steatosis. Oc Fletcher MD Abdomen X-Ray 01/05/17 0000 Signed Impressions: Service Date/Time: December 10:43 - CONCLUSION: No evidence of developing obstruction. Star Patterson MD Abdomen/Pelvis CT 01/04/17 0000 Signed Impressions: Service Date/Time: Wednesday, January 04, 2017 20:57 - CONCLUSION: 1. Abnormal bowel gas pattern with air-fluid levels and least one loop of mildly dilated small bowel in the right lower quadrant. This could represent an ileus or early small bowel obstruction. 2. Portions of the ascending colon are abnormal with wall thickening. Could indicate active Crohn's disease. 3. The liver remains prominent with moderate steatosis. 4. Nonobstructing small right renal calculi. 5. Small amount of ascitic fluid. Francis Franklin MD Objective Remarks GENERAL: This is a well-nourished, well-developed patient, in no apparent distress. CARDIOVASCULAR: Regular rate and rhythm without murmurs, gallops, or rubs. RESPIRATORY: Clear to auscultation. Breath sounds equal bilaterally. No wheezes , rales, or rhonchi. GASTROINTESTINAL: Abdomen soft, non-tender, nondistended. Normal active bowel sounds MUSCULOSKELETAL: Extremities without clubbing, cyanosis, or edema. NEURO: Alert & Oriented x4 to person, place, time, situation. Moves all ext x4 A/P Problem List: (1) Hypokalemia ICD Code: E87.6 Status: Acute Plan: Replaced, replace hypomagnesium (2) GERD (gastroesophageal reflux disease) ICD Code: K21.9 Status: Acute Plan: cont patient education (3) Elevated LFTs ICD Code: R79.89 Status: Acute Plan: Ptn with a hx of ETOH and denies recent liberties, US liver shows steatosis Improved (4) Exacerbation of Crohn's disease ICD Code: K50.90 Status: Acute Plan: patient will need to remain on his meds pentasa, IV steroids started EGD possibly today Small bowel series pending results Abd pain and constipation improved Discharge Planning pending endoscopy Kiya Rodriguez MD Jan 06, 2017 13:53
[2017-01-06] MEDS ORDERED: POTASSIUM PHOSPHATE INJ 30 MMOL in SODIUM CHLOR 0.9% 250 ML INJ 250 ML IV ONE (15:00)
[2017-01-06 16:51] VITALS: BP 107/67; PULSE 78; RESP 14; TEMP 98.1; O2SAT 98
--- NOTE | 2017-01-06 17:01 | RADRPT ---
EXAM DATE/TIME: 01/06/2017 09:35 [facility] COMPARISON: CT ABDOMEN & PELVIS W CONTRAST, December 13, 2016, 14:03. INDICATIONS : Crohn's disease FLUORO TIME: 3.4 minutes IMAGE COUNT: 58 CONTRAST: Liquid E-Z Paque Barium Sulfate (60% w/v, 41% w/w) IMAGING TIME(S): 15 min, 30 min, 45 min, 1 hr MEDICAL HISTORY : Pancreatitis. Crohn's disease. Hernia SURGICAL HISTORY : Colon resection. ENCOUNTER: Subsequent ACUITY: 3 days PAIN SCORE: 5/10 LOCATION: Abdomen FINDINGS: Preliminary film demonstrates postsurgical changes in the right lower quadrant the abdomen. There is evidence of anastomotic suture from previous intestinal resection. Examination of the swallowing function demonstrates no evidence of aspiration or penetration. The zeyad dy of the esophagus is unremarkable. Small hiatal hernia was noted. Examination of the stomach demonstrates no evidence of intraluminal mass or extrinsic compression. T he gastric volume appears normal and there are no findings of ulceration. The mucosal pattern appear s normal. The proximal small intestinal tract is moderately dilated. Significant dilatation is identified of th e distal distal small bowel loops prior to the enterocolonic anastomosis. Delayed passage of contrast through the ileocolonic anastomosis is noted. There is irregular mucosal surfaces and incomplete dis tention of the tract. A there are no fistulous tracts. Focal tenderness was identified overlying the enterocolonic anastomosis. CONCLUSION: 1. Proximal to mid small bowel distention indicative of a low grade to moderate grade obstructive pro cess. 2. Significant narrowing and poor distensibility of the enterocolonic anastomosis with irregular muco jose carlos surface characteristic of active inflammatory bowel disease. 3. No evidence of fistulous tracts. 4. Small hiatal hernia otherwise normal upper GI series. Star Patterson MD on January 06, 2017 at 16:51 Board Certified Radiologist. This report was verified electronically.
[2017-01-06] MEDS ORDERED: PROPOFOL 200 MG/20 ML AMP IV ONE (17:32)
[2017-01-06] MEDS ORDERED: BISACODYL EC 5 MG TABEC PO SCH (18:00)
[2017-01-06 18:06] VITALS: BP 115/72; PULSE 74; RESP 14; TEMP 96.9; O2SAT 100
[2017-01-06 20:00] VITALS: BP 102/73; PULSE 73; RESP 18; TEMP 96.4; O2SAT 98
[2017-01-06] MEDS ORDERED: IOHEXOL 350 MG/ML 10 ML VIAL (for RAD DIAG) IV ONE (21:40)
--- NOTE | 2017-01-06 22:07 | RADRPT ---
EXAM DATE/TIME: 01/06/2017 21:40 [facility] COMPARISON: UGI WITH SMALL BOWEL SERIES, January 06, 2017, 9:35. CT ABDOMEN & PELVIS W CONTRAST, January 04, 2017, 20: 57. INDICATIONS : Abnormal EGD. Extrinsic compression of upper esophageal sphincter IV CONTRAST: 75 cc Omnipaque 350 (iohexol) IV RADIATION DOSE: 10.67 CTDIvol (mGy) MEDICAL HISTORY : Crohn's disease. Gastroesophageal reflux disease. Pancreatitis. SURGICAL HISTORY : Tonsillectomy. ENCOUNTER: Initial ACUITY: 1 day PAIN SCALE: 0/10 LOCATION: neck TECHNIQUE: Volumetric scanning of the neck was performed. Using automated exposure control and adjustment of th e mA and/or kV according to patient size, radiation dose was kept as low as reasonably achievable to obtain optimal diagnostic quality images. DICOM format image data is available electronically for r eview and comparison. FINDINGS: NASOPHARYNX: The nasopharyngeal airway has a normal configuration. No mucosal thickening or mass is seen. OROPHARYNX: The intrinsic muscles of the tongue are symmetric. The tonsillar pillars are intact. The prevertebr al soft tissues are not thickened. LARYNX: The supraglottic, glottic, and infraglottic structures are intact. The upper esophagus appears unrema rkable. There is no extrinsic mass. PARAPHARYNGEAL: The parapharyngeal space is intact. SALIVARY GLANDS: The parotid and submandibular glands are intact. LYMPH NODES: No enlarged or necrotic-appearing nodes. THYROID: Homogeneous enhancement without evidence of nodule. BONES: Unremarkable. CONCLUSION: The upper esophagus appears unremarkable. There is no extrinsic mass. Francis Franklin MD on January 06, 2017 at 22:02 Board Certified Radiologist. This report was verified electronically.
[2017-01-07] VITALS: BP 107/70; PULSE 79; RESP 18; TEMP 97.1; O2SAT 96
[2017-01-07] MEDS: oxyCODONE/ACETAMINOPHEN 7.5 MG/325 MG TAB PO PRN ×3 (03:27→17:23)
[2017-01-07 08:00] VITALS: BP 106/67; PULSE 84; RESP 20; TEMP 96.8; O2SAT 97
[2017-01-07] MEDS: PANTOPRAZOLE SOD 40 MG DELAYED RELEASE TAB PO SCH (08:33)
[2017-01-07] MEDS: SODIUM CHLORIDE 0.9% FLUSH 10 ML FLUSH IV FLUSH SCH ×2 (08:33→20:09)
[2017-01-07] MEDS: methylPREDNISolone SOD SUCC 125 MG/2 ML VIAL IV PUSH SCH ×2 (08:33→20:10)
[2017-01-07 12:00] VITALS: BP 105/72; PULSE 82; RESP 20; TEMP 96.9; O2SAT 99
--- NOTE | 2017-01-07 12:06 | HHI.GIFU ---
Subjective Remarks Comfortable in bed no new complaints denies any nausea or vomiting at this point Objective Vitals I&O Vital Signs Date Time Temp Pulse Resp B/P Pulse Ox O2 Delivery O2 Flow Rate FiO2 01/07/17 08:00 96.8 84 20 106/67 97 01/07/17 04:27 18 01/07/17 00:00 97.1 79 18 107/70 96 01/06/17 20:00 96.4 73 18 102/73 98 01/06/17 18:06 96.9 74 14 115/72 100 01/06/17 17:40 97.0 92 16 112/74 98 01/06/17 17:23 96.9 97 16 109/72 100 01/06/17 16:51 98.1 78 14 107/67 98 I/O 01/06/17 01/06/17 01/06/17 01/07/17 01/07/17 01/07/17 07:00 15:00 23:00 07:00 15:00 23:00 Intake Total 0 ml 580 ml 480 ml Balance 0 ml 580 ml 480 ml Intake Oral 480 ml IV Total 0 ml 280 ml Other 300 ml # Voids 2 Laboratory Date/Time Procedure Status Source Growth 01/04/17 18:26 Urine Culture - Final Complete Urine Clean Catch NO GROWTH IN 48 HOURS. Imaging Last Impressions Upper GI and Small Bowel X-Ray 01/06/17 0542 Signed Impressions: Service Date/Time: Friday, January 06, 2017 09:35 - CONCLUSION: 1. Proximal to mid small bowel distention indicative of a low grade to moderate grade obstructive process. 2. Significant narrowing and poor distensibility of the enterocolonic anastomosis with irregular mucosal surface characteristic of active inflammatory bowel disease. 3. No evidence of fistulous tracts. 4. Small hiatal hernia otherwise normal upper GI series. Star Patterson MD Neck CT 01/06/17 0000 Signed Impressions: Service Date/Time: Friday, January 06, 2017 21:40 - CONCLUSION: The upper esophagus appears unremarkable. There is no extrinsic mass. Francis Franklin MD Liver Ultrasound 01/05/17 0000 Signed Impressions: Service Date/Time: December 14:13 - CONCLUSION: Diffuse hepatic steatosis. Oc Fletcher MD Abdomen X-Ray 6/29/17 0000 Signed Impressions: Service Date/Time: December 10:43 - CONCLUSION: No evidence of developing obstruction. Star Patterson MD Abdomen/Pelvis CT 01/04/17 0000 Signed Impressions: Service Date/Time: Wednesday, January 04, 2017 20:57 - CONCLUSION: 1. Abnormal bowel gas pattern with air-fluid levels and least one loop of mildly dilated small bowel in the right lower quadrant. This could represent an ileus or early small bowel obstruction. 2. Portions of the ascending colon are abnormal with wall thickening. Could indicate active Crohn's disease. 3. The liver remains prominent with moderate steatosis. 4. Nonobstructing small right renal calculi. 5. Small amount of ascitic fluid. Francis Franklin MD Physical Exam NECK: Neck is supple, CHEST: Chest is clear to auscultation and percussion. CARDIAC: Regular rate and rhythm with no murmur gallop or rubs. ABDOMEN: Soft, nondistended, nontender; no hepatosplenomegaly; bowel sounds are present in all four quadrants. EXTREMITIES: No clubbing, cyanosis, or edema. SKIN: Normal; no rash; no jaundice. 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 Assessment and Plan Plan Crohn's disease with recurrence at the anastomosis with what looks like a stricture difficult to say if this is just secondary to inflammation or a fibrotic stricture Anemia, melena but no active bleeding at this point Elevated liver function tests and alcoholism Patient advised to abstain from alcohol Would continue with steroids at this point and follow clinically Consider cheaper medications for maintenance such as sulfasalazine and Imuran or 6-MP Continue with current supportive care Recommend low fiber diet Follow-up with GI post discharge Ashwin Powell MD Jan 07, 2017 12:06
[2017-01-07] MEDS ORDERED: IMUR50TA PO (12:45)
[2017-01-07] MEDS ORDERED: PANT40TA3 PO (12:45)
[2017-01-07] MEDS ORDERED: PRED20 PO (12:46)
--- NOTE | 2017-01-07 12:47 | HHI.DCPOC ---
Discharge Care Plan Diagnosis: (1) Exacerbation of Crohn's disease (2) GERD (gastroesophageal reflux disease) Goals to Promote Your Health * To prevent worsening of your condition and complications * To maintain your health at the optimal level Directions to Meet Your Goals Take your medications as prescribed Follow your dietary instruction Follow activity as directed Keep your appointments as scheduled Take your immunizations and boosters as scheduled If your symptoms worsen call your PCP, if no PCP go to Urgent Care Center or Emergency Room Smoking is Dangerous to Your Health. Avoid second hand smoke Call the 24-hour hour crisis hotline for domestic abuse at Kiya Rodriguez MD Jan 07, 2017 12:47
--- NOTE | 2017-01-07 12:51 | HHI.PR ---
Subjective Remarks Patient seen today in follow-up for Crohn's exacerbation. Overall intestinal process improved. Good bowel movements which are now formed. Plan discussed with gastroenterology and general surgery. No surgical intervention at this time and will continue with medical management. Patient advised to continue anti-inflammatory medicines Objective Vitals Vital Signs Date Time Temp Pulse Resp B/P Pulse Ox O2 Delivery O2 Flow Rate FiO2 01/07/17 12:00 96.9 82 20 105/72 99 01/07/17 08:00 96.8 84 20 106/67 97 01/07/17 04:27 18 01/07/17 00:00 97.1 79 18 107/70 96 01/06/17 20:00 96.4 73 18 102/73 98 01/06/17 18:06 96.9 74 14 115/72 100 01/06/17 17:40 97.0 92 16 112/74 98 01/06/17 17:23 96.9 97 16 109/72 100 01/06/17 16:51 98.1 78 14 107/67 98 I/O 01/06/17 01/06/17 01/06/17 01/07/17 01/07/17 01/07/17 07:00 15:00 23:00 07:00 15:00 23:00 Intake Total 0 ml 580 ml 480 ml Balance 0 ml 580 ml 480 ml Intake Oral 480 ml IV Total 0 ml 280 ml Other 300 ml # Voids 2 Result Diagram: 01/06/17 0454 01/06/17 0454 Imaging Last Impressions Upper GI and Small Bowel X-Ray 01/06/17 0542 Signed Impressions: Service Date/Time: Friday, January 06, 2017 09:35 - CONCLUSION: 1. Proximal to mid small bowel distention indicative of a low grade to moderate grade obstructive process. 2. Significant narrowing and poor distensibility of the enterocolonic anastomosis with irregular mucosal surface characteristic of active inflammatory bowel disease. 3. No evidence of fistulous tracts. 4. Small hiatal hernia otherwise normal upper GI series. Star Patterson MD Neck CT 01/06/17 0000 Signed Impressions: Service Date/Time: Friday, January 06, 2017 21:40 - CONCLUSION: The upper esophagus appears unremarkable. There is no extrinsic mass. Francis Franklin MD Liver Ultrasound 01/05/17 0000 Signed Impressions: Service Date/Time: December 14:13 - CONCLUSION: Diffuse hepatic steatosis. Oc Fletcher MD Abdomen X-Ray 01/05/17 0000 Signed Impressions: Service Date/Time: December 10:43 - CONCLUSION: No evidence of developing obstruction. Star Patterson MD Abdomen/Pelvis CT 01/04/17 0000 Signed Impressions: Service Date/Time: Wednesday, January 04, 2017 20:57 - CONCLUSION: 1. Abnormal bowel gas pattern with air-fluid levels and least one loop of mildly dilated small bowel in the right lower quadrant. This could represent an ileus or early small bowel obstruction. 2. Portions of the ascending colon are abnormal with wall thickening. Could indicate active Crohn's disease. 3. The liver remains prominent with moderate steatosis. 4. Nonobstructing small right renal calculi. 5. Small amount of ascitic fluid. Francis Franklin MD Objective Remarks GENERAL: This is a well-nourished, well-developed patient, in no apparent distress. CARDIOVASCULAR: Regular rate and rhythm without murmurs, gallops, or rubs. RESPIRATORY: Clear to auscultation. Breath sounds equal bilaterally. No wheezes , rales, or rhonchi. GASTROINTESTINAL: Abdomen soft, non-tender, nondistended. Normal active bowel sounds MUSCULOSKELETAL: Extremities without clubbing, cyanosis, or edema. NEURO: Alert & Oriented x4 to person, place, time, situation. Moves all ext x4 A/P Problem List: (1) Hypokalemia ICD Code: E87.6 Status: Acute Plan: Replaced, replace hypomagnesium (2) GERD (gastroesophageal reflux disease) ICD Code: K21.9 Status: Acute Plan: cont ppi patient education (3) Elevated LFTs ICD Code: R79.89 Status: Acute Plan: Ptn with a hx of ETOH and denies recent liberties, US liver shows steatosis Improved (4) Exacerbation of Crohn's disease ICD Code: K50.90 Status: Acute Plan: patient will need to remain on his meds steroids and Imuran EGD shows gastritis Small bowel series showed possible obstruction, discussed with surgery, no surgical intervention Bowel moving quite well and he will need medical management Abd pain and constipation improved (5) Anemia of chronic disease ICD Code: D63.8 Status: Acute Plan: Continue surveillance Discharge Planning Likely discharge in Kiya Cruz MD Jan 07, 2017 12:51
[2017-01-07] MEDS: NICOTINE 21 MG/24 HR PATCH T-DERMAL SCH (13:22)
--- NOTE | 2017-01-07 14:16 | MB ---
cc: TYLER COULTER M.D.,KAMILA Farnsworth MD DATE OF CONSULTATION: 01/07/2017 REASON FOR CONSULTATION Crohn's disease. BRIEF HISTORY This is a pleasant 51-year-old gentleman who was diagnosed with Crohn's disease at the age of 27 [address] did a surgery and removed part of his small bowel and a small part of his colon. He was unable to afford or stay on anti-Crohn's medications and he said he was feeling great for awhile. The last several years he has had intermittent discomfort in the lower abdomen that increased in intensity and then became associated with inability to move his bowels and had severe distension and abdominal pain. He was put in the hospital and evaluated and he has some inflammatory narrowing of the bowel and adjacent to his small bowel to colon anastomosis. Since he has been in the hospital and been receiving treatment, he has improved and now only has lower abdominal discomfort that feels like a mild bruise. He is a smoker, he also has been a drinker in the past. He has only had that one abdominal surgery. ALLERGIES HE IS ALLERGIC TO TETANUS. MEDICATIONS His routine medications include a diuretic. He takes [id number] medications like Gas-X. PREVIOUS SURGERIES Previous surgeries include that abdominal surgery by Dr. Lane about 24 years ago. He has not followed up with a railroad construction director or a primary care doctor. 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 FAMILY HISTORY There is a family history of heart disease on his mother's side and colon problems on his father's side of the family. REVIEW OF SYSTEMS He says he heals slowly but thinks he stops bleeding normally. He does wear corrective lenses for his vision. He says he has some mild asthma and again he is a smoker. He denies a history of heart attack, chest pain, irregular heartbeat or heart murmur. He says he has bad acid in his stomach. He has got the Crohn's disease and intermittent diarrhea and constipation. Denies blood in his stool or melanoma. He has had no seizures. He says one time he thought he maybe had a stroke, he woke up with some footdrop but had some cramping in his hands too and it went away on its own. He denies a known history of diabetes or thyroid gland problems. He is not on blood thinning medications. PHYSICAL EXAMINATION GENERAL: Physical exam shows a thin male in no acute distress, pleasant and cooperative with exam. VITAL SIGNS: Temperature 96.9, pulse 82, respiratory rate 20, blood pressure 105/72, O2 sats 96-100% on room air. HEENT: Normocephalic, atraumatic. His pupils are 3 and sluggishly reactive to light, they are round. Sclerae are anicteric. Oropharynx is clear. He has a few missing teeth but overall reasonable dental health. No oral mucosal abnormalities are identified. NECK: The neck is supple without adenopathy, he is very thin. He has got a midline trachea. No jugular distension. No carotid bruits. LUNGS: His lungs are clear and equal anteriorly bilaterally. HEART: His heart sounds are regular without obvious murmur, rub or gallop. ABDOMEN: His abdomen is soft and nondistended. He has got mild if any discomfort to palpation. He has got a healed midline periumbilical scar without incisional hernia. GENITAL/RECTAL: Exams were not repeated. EXTREMITIES: His extremities are thin. He has got some calking or dried paint on his right leg. He has got equal radial pulses and no obvious cyanosis, clubbing or edema. NEUROLOGIC: Awake, alert, oriented. He has equal strong bilateral mining technician strength. LABORATORY DATA His white count is 7.7, his hemoglobin is 8.4, platelet count 130. His INR is 1.6. His potassium is 3.4, creatinine is 0.58. He has a mildly elevated AST and alkaline phosphatase. His ammonia level was 49 on admission, the albumin 2.1, magnesium 2.0. Urinalysis was abnormal, culture was indicated and there was no growth at 48 hours. His alcohol level was less than 3. IMAGING He had undergone imaging studies. A CT scan of the abdomen and pelvis showed abnormal bowel gas bladder pattern with air-fluid levels. At least one loop of mildly dilated small bowel in the right lower quadrant. Portions of the ascending colon were abnormal with wall thickening. The liver was prominent with moderate steatosis. There is a nonobstructing small right renal calculus and a small amount of ascitic fluid. He had a liver ultrasound which showed diffuse hepatic steatosis. He had a CT scan of his neck which showed no extrinsic mass in the upper esophagus. An upper GI small bowel x-ray showed some narrowing and poor distensibility of the enterocolonic anastomosis with a regular mucosal surface characteristic of acute inflammatory bowel disease. There is no evidence of fistulous tracts. There was a small hiatal hernia. ASSESSMENT A 51-year-old gentleman with a history of Crohn's disease status post bowel resection [address]. The patient has not been maintained on any anti-Crohn's medications until this hospitalization and with treatment he has improved. At this time, there is no indication for surgical intervention. This patient needs to be followed by a railroad construction director for his Crohn's disease and get appropriate medications. I explained to him surgery is a last resort for complicated Crohn's disease as the more bowel resection you do the less functional bowel the patient has to function normally. I will not follow this patient routinely. We will be available to come back and see the patient should surgical intervention be required although Dr. Lane has previously operated on this patient. The patient understands that medical therapy is indicated and no surgical treatment is necessary at this time. MD SOJNA Manley/BJF /12:41 PM /1:42 PM
[2017-01-07 16:02] VITALS: BP 112/67; PULSE 82; RESP 20; TEMP 95.8; O2SAT 95
--- NOTE | 2017-01-07 20:18 | MR ---
cc: ELIZABETH BELTRAN M.D. DATE 01/06/[address] Rodriguez DATE OF 65 PROCEDURE Upper endoscopy with biopsy. REASON FOR PROCEDURE Melena, abdominal pain, weight loss, history of Crohn's disease, anemia. CONSENT After the risks, benefits, alternatives, indications, limitations were explained to the patient he signed informed consent. He was informed about the risks of bleeding, perforation, over sedation, allergic reaction to the medication, missed lesion or failed procedure. PROCEDURE IN DETAIL The patient was placed in the left lateral decubitus and after the patient was fully sedated by Anesthesia upper endoscope was gently inserted into the oral cavity and under direct visualization esophagus was intubated. Then the scope was gently inserted into the stomach, advanced to the duodenum up to the second portion. Then the scope was slowly withdrawn and the mucosa was fully examined including color, texture, anatomy and motility. In the fundus retroflexion was performed, then the scope was withdrawn and procedure terminated. He tolerated the procedure well with no immediate complications. FINDINGS Gastritis in the antrum, a biopsy was performed. Retroflexion revealed hiatal hernia. Duodenum was normal. Biopsy was performed. Esophagus was normal. Tight cricopharyngeal muscle with extensive compression in the upper esophageal sphincter. No other pathology was noted. RECOMMENDATIONS Advance diet. CT neck, surgical consultation for abnormal upper GI series with small-bowel follow-through. Continue IV steroids. Avoid drinking. I like to thank Dr. Rodriguez for referring him to our office for consultation. Further recommendation will depend on the patient's clinical status and the above results. Thank you again. We will continue to follow the patient along with you. Elizabeth Beltran MD BSB/EO /5:32 PM /8:10 PM
[2017-01-07 20:25] VITALS: BP 112/71; PULSE 80; RESP 20; TEMP 97.8; O2SAT 96
[2017-01-08] MEDS: oxyCODONE/ACETAMINOPHEN 7.5 MG/325 MG TAB PO PRN ×2 (00:17→06:56)
[2017-01-08 00:59] VITALS: BP 125/78; PULSE 85; RESP 16; TEMP 96.9; O2SAT 93
[2017-01-08 07:41] LABS: AUTOMATED NEUTROPHIL # 12.2 TH/MM3 (1.8-7.7); BASOPHIL % 0.3 % (0.0-2.0); EOSINOPHIL % 0.2 % (0.0-4.0); HEMATOCRIT 27.2 % (39.0-51.0); LYMPH % 8.2 % (9.0-44.0); LYMPHOCYTE # 1.2 TH/MM3 (1.0-4.8); MEAN CELL VOLUME 91.1 FL (80.0-100.0); MEAN CORPUSCULAR HEMOGLOBIN 30.1 PG (27.0-34.0); MONO % 8.3 % (0.0-8.0); PLATELET COUNT 188 TH/MM3 (150-450); RED BLOOD COUNT 2.98 MIL/MM3 (4.50-5.90); WHITE BLOOD COUNT 14.6 TH/MM3 (4.0-11.0)
[2017-01-08 07:43] LABS: HEMO FLAGS AUTO DIFF
[2017-01-08 07:53] LABS: POTASSIUM 3.4 MEQ/L (3.5-5.1)
--- NOTE | 2017-01-08 07:59 | HHI.DS ---
Discharge Summary Admission Date Jan 04, 2017 at 20:40 Discharge Date: Jan 08, 2017 Admitting Diagnosis abd pain hypokalemia liver disease (1) Hypokalemia ICD Code: E87.6 (2) GERD (gastroesophageal reflux disease) ICD Code: K21.9 (3) Elevated LFTs ICD Code: R79.89 (4) Exacerbation of Crohn's disease ICD Code: K50.90 (5) Anemia of chronic disease ICD Code: D63.8 Procedures egd: gastritis Brief History - From Admission 51 YEAR OLD MALE Patient had 2 weeks of intractable severe mid-abdominal pain with nausea and some clear non bloody mildly bilious vomiting. No fever, chest pain or syncope. He has been admitted for evaluation of possible SBO. He has a history of Pancreatitis and Chron's and EtOH dependence Pain was relieved with morphine and toradol and aggravated by eating. He was hypokalemic and had not eating in 5 days due to his symptoms. overnight he reports increased flatus and a BM as well as resolution of pain; he would like to eat CBC/BMP: 01/08/17 0647 01/08/17 0647 Significant Findings Laboratory Tests Test 01/05/17 01/05/17 01/06/17 01/08/17 13:50 18:05 04:54 06:47 Potassium Level 2.9 MEQ/L 3.2 MEQ/L 3.4 MEQ/L 3.4 MEQ/L (3.5-5.1) (3.5-5.1) (3.5-5.1) (3.5-5.1) Magnesium Level 1.3 MG/DL (1.5-2.5) Ammonia 49 MCMOL/L (11-32) Red Blood Count 2.79 MIL/MM3 2.98 MIL/MM3 (4.50-5.90) (4.50-5.90) Hemoglobin 8.4 GM/DL 9.0 GM/DL (13.0-17.0) (13.0-17.0) Hematocrit 25.4 % 27.2 % (39.0-51.0) (39.0-51.0) Platelet Count 130 TH/MM3 (150-450) Neutrophils (%) (Auto) 90.5 % 83.0 % (16.0-70.0) (16.0-70.0) Lymphocytes (%) (Auto) 5.8 % 8.2 % (9.0-44.0) (9.0-44.0) Lymphocytes # (Auto) 0.4 TH/MM3 (1.0-4.8) Creatinine 0.58 MG/DL (0.60-1.30) Random Glucose 184 MG/DL (74-106) Calcium Level 7.2 MG/DL (8.5-10.1) Protein Corrected Calcium 7.8 MG/DL (8.5-10.1) Total Bilirubin 2.9 MG/DL (0.2-1.0) Aspartate Amino Transf 78 U/L (15-37) (AST/SGOT) Alkaline Phosphatase 285 U/L (45-117) Total Protein 5.9 GM/DL (6.4-8.2) Albumin 2.1 GM/DL (3.4-5.0) White Blood Count 14.6 TH/MM3 (4.0-11.0) Monocytes (%) (Auto) 8.3 % (0.0-8.0) Neutrophils # (Auto) 12.2 TH/MM3 (1.8-7.7) Monocytes # (Auto) 1.2 TH/MM3 (0-0.9) Imaging Last Impressions Upper GI and Small Bowel X-Ray 01/06/17 0542 Signed Impressions: Service Date/Time: Friday, January 06, 2017 09:35 - CONCLUSION: 1. Proximal to mid small bowel distention indicative of a low grade to moderate grade obstructive process. 2. Significant narrowing and poor distensibility of the enterocolonic anastomosis with irregular mucosal surface characteristic of active inflammatory bowel disease. 3. No evidence of fistulous tracts. 4. Small hiatal hernia otherwise normal upper GI series. Star Patterson MD Neck CT 01/06/17 0000 Signed Impressions: Service Date/Time: Friday, January 06, 2017 21:40 - CONCLUSION: The upper esophagus appears unremarkable. There is no extrinsic mass. Francis Franklin MD Liver Ultrasound 01/05/17 Signed Impressions: Service Date/Time: December 14:13 - CONCLUSION: Diffuse hepatic steatosis. Oc Fletcher MD Abdomen X-Ray 01/05/17 0000 Signed Impressions: Service Date/Time: December 10:43 - CONCLUSION: No evidence of developing obstruction. Star Patterson MD Abdomen/Pelvis CT 01/04/17 0000 Signed Impressions: Service Date/Time: Wednesday, January 04, 2017 20:57 - CONCLUSION: 1. Abnormal bowel gas pattern with air-fluid levels and least one loop of mildly dilated small bowel in the right lower quadrant. This could represent an ileus or early small bowel obstruction. 2. Portions of the ascending colon are abnormal with wall thickening. Could indicate active Crohn's disease. 3. The liver remains prominent with moderate steatosis. 4. Nonobstructing small right renal calculi. 5. Small amount of ascitic fluid. Francis Franklin MD PE at Discharge GENERAL: This is a well-nourished, well-developed patient, in no apparent distress. CARDIOVASCULAR: Regular rate and rhythm without murmurs, gallops, or rubs. RESPIRATORY: Clear to auscultation. Breath sounds equal bilaterally. No wheezes , rales, or rhonchi. GASTROINTESTINAL: Abdomen soft, non-tender, nondistended. Normal active bowel sounds MUSCULOSKELETAL: Extremities without clubbing, cyanosis, or edema. NEURO: Alert & Oriented x4 to person, place, time, situation. Moves all ext x4 Pt update on day of discharge Patient seen today in follow-up for Crohn's exacerbation. Overall improved. Abdominal pain resolved. Discharge plans discussed with patient who is in agreement. Medication list reviewed patient and plans follow-up also discussed. Hospital Course The patient is a 51-year-old gentleman known history of Crohn's disease with his medications. Patient did have an exacerbation of Crohn's which was managed with steroids and with supportive care. This possibly a stricture small bowel obstruction which was evaluated by imaging and surgery. No surgical treatment was recommended. Patient was advised to continue his medications and discontinue alcohol Pt Condition on Discharge: Good Discharge Disposition: Discharge Home Discharge Time: > 30 minutes Discharge Instructions DIET: Follow Instructions for: Low Fiber Diet Activities you can perform: Regular-No Restrictions Follow up Referrals: Gastroenterology - 2 Weeks @ [facility] New Medications: Azathioprine (Imuran) 50 Mg Tab 50 MG PO BID Hazardous agent: use appropriate precautions for handling and disposal. Immunosuppression #60 Ref 0 TAB Prednisone (Prednisone) 20 Mg Tab 20 MG PO BID Inflammation #14 Ref 0 TAB Pantoprazole (Pantoprazole) 40 Mg Tab 40 MG PO DAILY gastritis #60 TAB Continued Medications: Furosemide (Furosemide) 40 Mg Tab 40 MG PO DAILY #30 Ref 0 TAB Mesalamine ER (Pentasa) 250 Mg Caper 1000 MG PO QID Ulcerative Colitis Ref 0 CAP Potassium Chloride ER (K-Tab) 20 Meq Tab 40 MEQ PO ONCE Electrolyte Replacement #2 Ref 0 TAB iKya Rodriguez MD Jan 08, 2017 07:59
[2017-01-08 08:00] VITALS: BP 124/80; PULSE 69; RESP 17; TEMP 95.9; O2SAT 98
[2017-01-08 08:10] LABS: BICARBONATE 25.6 MEQ/L (21.0-32.0)
[2017-01-08 08:42] LABS: SCAN/DIFF AUTO DIFF CONFIRMED
[2017-01-08] MEDS ORDERED: REMOVE OLD PATCH T-DERMAL SCH (09:00)
[2017-01-08 09:33] VITALS: RESP 18
[2017-01-08] MEDS: PANTOPRAZOLE SOD 40 MG DELAYED RELEASE TAB PO SCH (09:57)
[2017-01-08] MEDS: SODIUM CHLORIDE 0.9% FLUSH 10 ML FLUSH IV FLUSH SCH (09:57)
[2017-01-08] MEDS: methylPREDNISolone SOD SUCC 125 MG/2 ML VIAL IV PUSH SCH (09:58)
[2017-01-08] MEDS: NICOTINE 21 MG/24 HR PATCH T-DERMAL SCH (09:58)
[2017-01-08] MEDS ORDERED: TYLE325T PO (10:49)
[2017-01-08] MEDS ORDERED: TYLETAB34 PO (10:51)
--- NOTE | 2017-01-08 11:16 | HHI.GIFU ---
Subjective Remarks Pt resting in bed, waiting to go home (Destinee Morgan) Objective Vitals I&O Vital Signs Date Time Temp Pulse Resp B/P Pulse Ox O2 Delivery O2 Flow Rate FiO2 01/08/17 09:33 18 01/08/17 08:00 95.9 69 17 124/80 98 01/08/17 00:59 96.9 85 16 125/78 93 01/07/17 20:25 97.8 80 20 112/71 96 01/07/17 16:02 95.8 82 20 112/67 95 01/07/17 12:00 96.9 82 20 105/72 99 I/O 01/07/17 01/07/17 01/07/17 01/08/17 01/08/17 01/08/17 07:00 15:00 23:00 07:00 15:00 23:00 Intake Total 480 ml 900 ml 0 ml Balance 480 ml 900 ml 0 ml Intake Oral 480 ml 900 ml IV Total 0 ml # Voids 5 2 # Bowel Movements 3 Laboratory Laboratory Tests Test 01/08/17 06:47 White Blood Count 14.6 Red Blood Count 2.98 Hemoglobin 9.0 Hematocrit 27.2 Mean Corpuscular Volume 91.1 Mean Corpuscular Hemoglobin 30.1 Mean Corpuscular Hemoglobin 33.0 Concent Red Cell Distribution Width 17.0 Platelet Count 188 Mean Platelet Volume 8.7 Neutrophils (%) (Auto) 83.0 Lymphocytes (%) (Auto) 8.2 Monocytes (%) (Auto) 8.3 Eosinophils (%) (Auto) 0.2 Basophils (%) (Auto) 0.3 Neutrophils # (Auto) 12.2 Lymphocytes # (Auto) 1.2 Monocytes # (Auto) 1.2 Eosinophils # (Auto) 0.0 Basophils # (Auto) 0.0 CBC Comment AUTO DIFF Differential Comment AUTO DIFF CONFIRMED Sodium Level 138 Potassium Level 3.4 Chloride Level 103 Carbon Dioxide Level 25.6 Anion Gap 9 Blood Urea Nitrogen 8 Creatinine 0.53 Estimat Glomerular Filtration 164 Rate Random Glucose 101 Calcium Level 8.3 Date/Time Procedure Status Source Growth 01/04/17 18:26 Urine Culture - Final Complete Urine Clean Catch NO GROWTH IN 48 HOURS. Imaging Last Impressions Upper GI and Small Bowel X-Ray 01/06/17 0542 Signed Impressions: Service Date/Time: Friday, January 06, 2017 09:35 - CONCLUSION: 1. Proximal to mid small bowel distention indicative of a low grade to moderate grade obstructive process. 2. Significant narrowing and poor distensibility of the enterocolonic anastomosis with irregular mucosal surface characteristic of active inflammatory bowel disease. 3. No evidence of fistulous tracts. 4. Small hiatal hernia otherwise normal upper GI series. Star Patterson MD Neck CT 01/06/17 Signed Impressions: Service Date/Time: Friday, January 06, 2017 21:40 - CONCLUSION: The upper esophagus appears unremarkable. There is no extrinsic mass. Francis Franklin MD Liver Ultrasound 01/05/17 Signed Impressions: Service Date/Time: December 14:13 - CONCLUSION: Diffuse hepatic steatosis. Oc Fletcher MD Abdomen X-Ray 01/05/17 Signed Impressions: Service Date/Time: December 10:43 - CONCLUSION: No evidence of developing obstruction. Star Patterson MD Abdomen/Pelvis CT 01/04/17 Signed Impressions: Service Date/Time: Wednesday, January 04, 2017 20:57 - CONCLUSION: 1. Abnormal bowel gas pattern with air-fluid levels and least one loop of mildly dilated small bowel in the right lower quadrant. This could represent an ileus or early small bowel obstruction. 2. Portions of the ascending colon are abnormal with wall thickening. Could indicate active Crohn's disease. 3. The liver remains prominent with moderate steatosis. 4. Nonobstructing small right renal calculi. 5. Small amount of ascitic fluid. Francis Franklin MD Physical Exam NECK: Neck is supple, CHEST: CTA CARDIAC: RRR ABDOMEN: Soft, nondistended, nontender; no hepatosplenomegaly; bowel sounds are present in all four quadrants. EXTREMITIES: No clubbing, cyanosis, or edema. SKIN: Normal; no rash; no jaundice. CAN OPERATOR: No focal deficits; alert and oriented times three. (Destinee Morgan COMMUNITY MUSIC THERAPIST) Assessment and Plan Plan ASSESSMENT: - Crohn's disease with recurrence at the anastomosis with what looks like a stricture difficult to say if this is just secondary to inflammation or a fibrotic stricture - Anemia, melena but no active bleeding at this point - Elevated liver function tests and alcoholism PLAN - 60 MG prednisone daily for 10d; then taper to 40mg, 30mg, 20mg, 10mg, 5mg 10d each - sulfasalazine 500mg x 2 BID - imuran 50mg daily - ETOH cessation - recommend pursuing research/clinical trials - f/u with GI in one week (Destinee Morgan) Destinee Morgan Jan 08, 2017 11:16 Elizabeth Pino MD Jan 08, 2017 11:48
== END 2017-01-08 11:09 | disposition home or self-care (01) | DRG 386 ==
LOC: PHED 17:39 → PHEDA 20:40 → PH3B 22:58
PROVIDERS: ADMIT Hospitalist; ATTEND Hospitalist
PROC: 0DB68ZX Excision of Stomach, Via Natural or Artificial Opening Endoscopic, Diagnostic (ICD-10-PCS; 2017-01-06)
PROC: 0DB98ZX Excision of Duodenum, Via Natural or Artificial Opening Endoscopic, Diagnostic (ICD-10-PCS; principal; 2017-01-06 17:07)
DX: K50.90 Crohn's disease, unspecified, without complications (principal); K56.69 Other intestinal obstruction; K70.30 Alcoholic cirrhosis of liver without ascites; D63.8 Anemia in other chronic diseases classified elsewhere; E83.42 Hypomagnesemia; E87.6 Hypokalemia; K21.9 Gastro-esophageal reflux disease without esophagitis; R79.89 Other specified abnormal findings of blood chemistry; T50.996A Underdosing of other drugs, medicaments and biological substances, initial encounter; Z91.120 Patient's intentional underdosing of medication regimen due to financial hardship; K29.70 Gastritis, unspecified, without bleeding; K44.9 Diaphragmatic hernia without obstruction or gangrene; F17.210 Nicotine dependence, cigarettes, uncomplicated
CPT/HCPCS: 70491; 74000; 74177; 74245; 76705; 80048; 80053; 80076; 80307; 81001; 82140; 82150; 82248; 82550; 82552; 83690; 83735; 84132; 84155; 84484; 85014; 85018; 85025; 85610; 86850; 86900; 86901; 87086; 88305; 88312; 93005; 96361; 96374; 96375; 96376; C9113; J0780; J1885; J2270; J2405; J2930; J3480; J7030; J7050; Q9963; Q9967

== ENCOUNTER 2017-01-09 13:33 | Emergency (ER) | payer SELFPAY ==
[~2017-01-09] VITALS: Ht 182.9 cm; Wt 56.8 kg
[~2017-01-09 13:33] MED LIST changes: +FURO40TA PO; +IMUR50TA PO; +MESA250 PO; +PANT40TA3 PO; +PRED20 PO; +TYLE325T PO; +TYLETAB34 PO
[2017-01-09 13:39] VITALS: BP 99/62; PULSE 99; RESP 18; TEMP 97.8; O2SAT 100
--- NOTE | 2017-01-09 14:55 | PD ---
HPI Chief Complaint: Abdominal Pain Time Seen by Provider: 14:25 Travel History International Travel<30 days: No Contact w/Intl Traveler<30days: No Traveled to known affect area: No History of Present Illness HPI PT D/C YESTERDAY AFTER DR BELTRAN DID SCOPE AND DX GASTRITIS, DUODENITIS AND HIATAL HERNIA. PT WAS D/C WITH MULTIPLE MEDICATIONS WHICH WERE NOT FILLED BECAUSE HE LOST HIS "BLUE CARD". NOW PT RETURNS C/O DIFFUSE CRAMPY ABDOMINAL PAIN, NAUSEA, WITHOUT V/D/FEVER/. PFSH Past Medical History Hx Anticoagulant Therapy: No Asthma: Yes Blood Disorders: No Anxiety: Yes Depression: Yes Cancer: No Cardiovascular Problems: No COPD: No Diabetes: No Diminished Hearing: No Endocrine: No Gastrointestinal Disorders: Yes (CROHNS) Genitourinary: No Immune Disorder: No Inguinal Hernia: Yes Implanted Vascular Access Dvce: No Musculoskeletal: Yes (BILAT KNEES.) Neurologic: No Psychiatric: Yes (denies currently ) Reproductive: No Respiratory: Yes (asthma) Immunizations Current: Yes Pancreatitis: Yes Past Surgical History Abdominal Surgery: Yes (COLON RESECTION DUE TO CROHNS) Pacemaker: No Tonsillectomy: Yes Other Surgery: Yes (TONSILECTOMY, CHRON'S DISEASE) Social History Alcohol Use: No (quit 4 months ago) Tobacco Use: Yes (1 PPD) Substance Use: No Allergies-Medications (Allergen,Severity, Reaction): Coded Allergies: Tetanus Toxoid (Verified Allergy, Severe, Nausea/Vomiting, 01/09/17) Reported Meds & Prescriptions Reported Meds & Active Scripts Active Tylenol-Codeine #3 (Acetaminophen-Codeine) 300-30 mg Tab 1 Tab PO Q6HR PRN Tylenol (Acetaminophen) 325 Mg Tab 650 Mg PO Q6H PRN Prednisone 20 Mg Tab 20 Mg PO BID Imuran (Azathioprine) 50 Mg Tab 50 Mg PO BID Hazardous agent: use appropriate precautions for handling and disposal. Pantoprazole (Pantoprazole Sodium) 40 Mg Tab 40 Mg PO DAILY K-Tab (Potassium Chloride) 20 Meq Tab 40 Meq PO ONCE Reported Pentasa (Mesalamine) 250 Mg Caper 1,000 Mg PO QID Furosemide 40 Mg Tab 40 Mg PO DAILY Review of Systems Gastrointestinal: Positive: Nausea, Abdominal Pain Physical Exam Narrative GENERAL: SKIN: Warm and dry. HEAD: Atraumatic. Normocephalic. EYES: Pupils equal and round. No scleral icterus. No injection or drainage. ENT: No nasal bleeding or discharge. Mucous membranes pink and moist. NECK: Trachea midline. No JVD. CARDIOVASCULAR: Regular rate and rhythm. RESPIRATORY: No accessory muscle use. Clear to auscultation. Breath sounds equal bilaterally. GASTROINTESTINAL: Abdomen soft, MILD TTP OVER EPIG AND RUQ nondistended. MUSCULOSKELETAL: Extremities without clubbing, cyanosis, or edema. No obvious deformities. NEUROLOGICAL: Awake and alert. No obvious cranial nerve deficits. Motor grossly within normal limits. Five out of 5 muscle strength in the arms and legs. Normal speech. PSYCHIATRIC: Appropriate mood and affect; insight and judgment normal. Data Data Last Documented VS Vital Signs Date Time Temp Pulse Resp B/P Pulse Ox O2 Delivery O2 Flow Rate FiO2 01/09/17 13:39 97.8 99 18 99/62 100 Orders Azathioprine (Imuran) (01/09/17 15:00) Dexamethasone Inj (Decadron Inj) (01/09/17 15:00) Ondansetron Inj (Zofran Inj) (01/09/17 15:00) Pantoprazole Inj (Protonix Inj) (01/09/17 15:00) MDM Medical Decision Making Medical Screen Exam Complete: Yes Emergency Medical Condition: Yes Medical Record Reviewed: Yes Differential Diagnosis HERE FOR PAIN CONTROL, PT UNABLE TO FILL HIS PRESCRIPTIONS Narrative Course DECISION ANALYST CONSULTED, SHE STATED THAT PATIENT CAN GO TO [facility] AND OBTAIN A NEW "BLUE CARD" PATIENT AGREES TO DO SO. WILL GIVE STEROID/IMURAN/ PROTONIX AND THEN D/C HOME PATIENT'S CHART WAS REVIEWED AND MENTIONED DECISION ANALYST INVOLVED AND ADVISED PATIENT ON HOW TO GET HIS BLUE CARD BACK SO HE CAN GET HIS MEDICATIONS Diagnosis Primary Impression: ABD PAIN DUE TO CHRON'S EXACERBATION Additional Instructions: PLEASE GO TO [facility] IN [facility] TO GET YOUR BLUE CARD REPLACED AND THEN GET YOUR PRESCRIPTIONS AND TAKE THEM INSTRUCTED. Disposition: 01 DISCHARGE HOME Condition: Stable Brando Meredith MD Jan 09, 2017 14:55
[2017-01-09] MEDS ORDERED: azaTHIOprine 50 MG TAB PO ONE (15:00)
[2017-01-09] MEDS ORDERED: DEXAMETHASONE SOD PHOS 20 MG/5 ML VIAL IV PUSH ONE (15:00)
[2017-01-09] MEDS ORDERED: ONDANSETRON HCL 4 MG/2 ML VIAL IV PUSH ONE (15:00)
[2017-01-09] MEDS ORDERED: PANTOPRAZOLE SODIUM 40 MG VIAL IV PUSH ONE (15:00)
[2017-01-09 16:11] VITALS: BP 102/56
== END 2017-01-09 16:12 | disposition home or self-care (01) ==
LOC: PHED 13:33
DX: K50.90 Crohn's disease, unspecified, without complications (principal); R10.84 Generalized abdominal pain
CPT/HCPCS: 96374; 96375; 99284; C9113; J1100; J2405; J7500

== ENCOUNTER 2017-02-03 23:55 | Emergency (ER) | payer OTHER ==
[~2017-02-03] VITALS: Ht 182.9 cm; Wt 47.5 kg
[~2017-02-03 23:55] MED LIST changes: +PRED10 PO; +PRED5TAB PO
[2017-02-04] VITALS: BP 107/65; PULSE 102; RESP 18; TEMP 97.3; O2SAT 98
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
[2017-02-04] MEDS ORDERED: VANCOMYCIN INJ 1,250 MG in SODIUM CHLOR 0.9% 250 ML INJ 250 ML IV ONE (00:30)
[2017-02-04] MEDS ORDERED: SULFAMETHOXAZOLE-TRIMETHOPRIM DS 800-160 MG TAB PO ONE (00:30)
[2017-02-04] MEDS ORDERED: DOXYCYCLINE HYCLATE 100 MG CAP PO ONE (00:30)
[2017-02-04 00:34] LABS: AUTOMATED NEUTROPHIL # 17.4 TH/MM3 (1.8-7.7); BASOPHIL % 0.1 % (0.0-2.0); EOSINOPHIL # 0.1 TH/MM3 (0-0.4); EOSINOPHIL % 0.3 % (0.0-4.0); HEMATOCRIT 26.2 % (39.0-51.0); LYMPH % 3.2 % (9.0-44.0); LYMPHOCYTE # 0.6 TH/MM3 (1.0-4.8); MEAN CELL VOLUME 89.5 FL (80.0-100.0); MEAN CORPUSCULAR HEMOGLOBIN 30.5 PG (27.0-34.0); MEAN CORPUSCULAR HGB CONC 34.1 % (32.0-36.0); MONO % 3.2 % (0.0-8.0); NEUT % 93.2 % (16.0-70.0); PLATELET COUNT 179 TH/MM3 (150-450); RED BLOOD COUNT 2.93 MIL/MM3 (4.50-5.90); RED CELL DISTRIBUTION WIDTH 20.9 % (11.6-17.2); WHITE BLOOD COUNT 18.7 TH/MM3 (4.0-11.0)
[2017-02-04 00:38] LABS: HEMO FLAGS DIFF FINAL
[2017-02-04 00:43] LABS: POTASSIUM 4.6 MEQ/L (3.5-5.1)
[2017-02-04 00:45] LABS: BICARBONATE 22.3 MEQ/L (21.0-32.0)
[2017-02-04] MEDS ORDERED: HYDR-3533 PO (01:03)
[2017-02-04] MEDS ORDERED: BACT800T5 PO (01:03)
[2017-02-04] MEDS ORDERED: DOXY100C PO (01:03)
[2017-02-04 01:44] VITALS: BP 105/66
[2017-02-04] MEDS ORDERED: ALBUAER3 INH (01:52)
[2017-02-04] MEDS ORDERED: ALBUTEROL SULFATE 90 MCG/ACT HFA 8 GM INHALER INH SCH ×2 (04:00)
== END 2017-02-04 02:04 | disposition home or self-care (01) ==
LOC: PHED 23:55
DX: L03.113 Cellulitis of right upper limb (principal); F17.200 Nicotine dependence, unspecified, uncomplicated; Z87.19 Personal history of other diseases of the digestive system; Z87.09 Personal history of other diseases of the respiratory system; Z86.59 Personal history of other mental and behavioral disorders; Z87.39 Personal history of other diseases of the musculoskeletal system and connective tissue
CPT/HCPCS: 80048; 85025; 96365; 99284; J3370; J7050

== ENCOUNTER 2017-02-10 16:11 | Emergency (ER) | payer OTHER ==
[~2017-02-10] VITALS: Ht 182.9 cm; Wt 49.8 kg
[~2017-02-10 16:11] MED LIST changes: +ALBUAER3 INH; +BACT800T5 PO; +DOXY100C PO; +HYDR-3533 PO; -TYLETAB34 PO
[2017-02-10 16:17] VITALS: BP 121/57; PULSE 57; RESP 16; TEMP 99.2; O2SAT 100
[2017-02-10] MEDS ORDERED: LIDOCAINE 1%/EPINEPHrine 1:100,000 SOLN 20 ML VIAL INFIL ONE (17:15)
[2017-02-10 17:44] VITALS: BP 95/65; PULSE 100; RESP 16; O2SAT 100
[2017-02-10] MEDS ORDERED: NYST1000 SWISH-SWAL (18:10)
[2017-02-10] MEDS ORDERED: HYDR-3533 PO (18:10)
--- NOTE | 2017-02-10 18:10 | PD ---
HPI Chief Complaint: Skin Problem Time Seen by Provider: 16:59 Travel History International Travel<30 days: No Contact w/Intl Traveler<30days: No Traveled to known affect area: No History of Present Illness HPI So 51-year-old man who presents to the emergency department complaining of pain and swelling to the right elbow, and soreness in this time. He is a history of alcoholism and cirrhosis, as well as Crohn's disease. He was seen in the emergency department on February 03. He is placed on antibiotics then. He's also been having some pain and soreness in this time. He feels like overall the infection the right arm is significant improved although he still is draining fluid from one area. History Past Medical History Narrative Medical Crohn's disease Anxiety and depression Asthma Pancreatitis Alcoholic liver disease Social History Alcohol Use: No (quit) Tobacco Use: Yes (1 PPD) Allergies-Medications (Allergen,Severity, Reaction): Coded Allergies: Tetanus Toxoid (Verified Allergy, Severe, Nausea/Vomiting, 02/10/17) Reported Meds & Prescriptions Reported Meds & Active Scripts Active Bactrim DS (Sulfamethoxazole-Trimethoprim) 800-160 Mg Tab 1 Tab PO BID Doxycycline Hyclate 100 Mg Cap 100 Mg PO BID Pantoprazole (Pantoprazole Sodium) 40 Mg Tab 40 Mg PO DAILY Furosemide 40 Mg Tab 40 Mg PO DAILY K-Tab (Potassium Chloride) 20 Meq Tab 2 Tab PO BID Tylenol (Acetaminophen) 325 Mg Tab 650 Mg PO Q6H PRN Imuran (Azathioprine) 50 Mg Tab 50 Mg PO BID Hazardous agent: use appropriate precautions for handling and disposal. Reported Pentasa (Mesalamine) 250 Mg Caper 1,000 Mg PO QID Review of Systems Except as stated in HPI: all other systems reviewed are Neg Physical Exam Narrative GENERAL: 51-year-old man, appears cachectic, no acute distress. SKIN: Focused skin assessment warm/dry. HEAD: Atraumatic. Normocephalic. EYES: Pupils equal and round. No scleral icterus. No injection or drainage. ENT: No nasal bleeding or discharge. Mucous membranes pink and moist. Patient is thrush on his tongue. NECK: Trachea midline. No JVD. CARDIOVASCULAR: Regular rate and rhythm. No murmur appreciated. RESPIRATORY: No accessory muscle use. Clear to auscultation. Breath sounds equal bilaterally. GASTROINTESTINAL: Abdomen soft, non-tender, nondistended. Hepatic and splenic margins not palpable. MUSCULOSKELETAL: No obvious deformities. Pain and swelling on the proximal forearm laterally, near the elbow but more distal than would be expected for a olecranon bursitis. There is one area of ulceration where there is some thin purulent drainage. He has full range of motion of the elbow without restriction. There is some warmth in the same area of maximum fluctuance. NEUROLOGICAL: Awake and alert. No obvious cranial nerve deficits. Motor grossly within normal limits. Normal speech. PSYCHIATRIC: Appropriate mood and affect; insight and judgment normal. Data Data Last Documented VS Vital Signs Date Time Temp Pulse Resp B/P Pulse Ox O2 Delivery O2 Flow Rate FiO2 02/10/17 17:44 100 16 95/65 100 Room Air 02/10/17 16:17 99.2 Orders Lidocai-Epi 1%-1:100,000 Inj (Xylocaine- (02/10/17 17:15) Wound Culture And Gram Stain (02/10/17 17:18) MDM Medical Decision Making Medical Screen Exam Complete: Yes Emergency Medical Condition: Yes Differential Diagnosis Abscess, cellulitis, olecranon bursitis, thrush, other Narrative Course Medical decision-making 51-year-old man presents with resolving cellulitis but now abscess on the right elbow. This was drained at the bedside. He also has thrush likely from antibiotic use. Patient appears very chronically ill, likely related to his Crohn's disease and alcoholic liver disease and alcoholism. We'll recommend continue antibiotics, we'll bring him back in 24-48 hours for repeat wound check. Procedures Procedure Narrative INCISION AND DRAINAGE OF ABSCESS: The area was prepped and was sterilely draped. A subcutaneous wheal of % Xylocaine 1 with a total number 5 mL was used to anesthetize the area. The area was properly anesthetized. A number 11 scalpel was used to make a 1-cm incision across the area of the abscess. Cultures were obtained. Quarter inch iodoform packing was placed in the wound. Sterile dressing applied. Patient advised to have packing removed in two days. Diagnosis Primary Impression: Abscess Additional Instructions: Continue antibiotics. Use nystatin swish and spit as prescribed. Wash wound daily with soap and water. Continue to express purulent drainage from wound as discussed. Return to the emergency department 24-48 hours for repeat wound check. Return to emergency department sooner for worsening pain swelling redness fever or any other new or worsening symptoms. Med/Other Pt SpecificInfo: Prescription(s) given Scripts Nystatin Liq 100,000 unit/ml Susp5 Ml SWISH-SWAL QID 10 Days Ref 0 Prov:Gabriel Egan MD 02/10/17 Hydrocodone-Acetaminophen (Lortab)5-325 Mg Tab1-2 Tab PO Q6H PRN (PAIN) #12 TAB Prov:Gabriel Egan MD 02/10/17 Disposition: 01 DISCHARGE HOME Condition: Stable Gabriel Egan MD Feb 10, 2017 18:10
== END 2017-02-10 18:25 | disposition home or self-care (01) ==
LOC: PHED 16:11
DX: L02.413 Cutaneous abscess of right upper limb (principal); B95.62 Methicillin resistant Staphylococcus aureus infection as the cause of diseases classified elsewhere; K74.60 Unspecified cirrhosis of liver; K70.9 Alcoholic liver disease, unspecified; F17.200 Nicotine dependence, unspecified, uncomplicated; Z87.19 Personal history of other diseases of the digestive system; Z86.59 Personal history of other mental and behavioral disorders; Z87.09 Personal history of other diseases of the respiratory system
CPT/HCPCS: 10061; 86403; 87070; 87186; 87205

== ENCOUNTER 2017-02-11 15:42 | Emergency (ER) | payer OTHER ==
[~2017-02-11 15:42] MED LIST changes: -ALBUAER3 INH; +NYST1000 SWISH-SWAL; -PRED10 PO; -PRED20 PO; -PRED5TAB PO
[2017-02-11 15:43] VITALS: BP 104/57; PULSE 101; RESP 14; TEMP 98; O2SAT 98
--- NOTE | 2017-02-11 15:58 | PD ---
Physical Exam Date Seen by Provider: Feb 11, 2017 Time Seen by Provider: 15:56 Data Data Last Documented VS Vital Signs Date Time Temp Pulse Resp B/P Pulse Ox O2 Delivery O2 Flow Rate FiO2 02/11/17 15:43 98.0 101 14 104/57 98 MDM Supervised Visit with JUAN: No Narrative Course 51 YO M with complaint of wound recheck of abscess of the right elbow. Patient endorses pruritis in the area, but states that symptoms have otherwise improved. Endorses compliance with antibiotics. Vitals reviewed. Patient seen in triage, awaiting bed placement. Lianna Ghosh Feb 11, 2017 15:58
--- NOTE | 2017-02-11 16:51 | PD ---
HPI Chief Complaint: Wound/Suture/Staple Re-Check Time Seen by Provider: 16:10 Travel History International Travel<30 days: No Contact w/Intl Traveler<30days: No Traveled to known affect area: No History of Present Illness HPI Is a 51-year-old man I saw yesterday who had a right elbow cellulitis and I had drained the residual abscess. He's coming in for a wound check. History Past Medical History Narrative Medical Cirrhosis Influenza Vaccination: No Social History Alcohol Use: No (quit) Tobacco Use: Yes (1 PPD) Allergies-Medications (Allergen,Severity, Reaction): Coded Allergies: Tetanus Toxoid (Verified Allergy, Severe, Nausea/Vomiting, 02/11/17) Reported Meds & Prescriptions Reported Meds & Active Scripts Active Nystatin Liq 100,000 unit/ml Susp 5 Ml SWISH-SWAL QID 10 Days Lortab (Hydrocodone-Acetaminophen) 5-325 Mg Tab 1-2 Tab PO Q6H PRN Bactrim DS (Sulfamethoxazole-Trimethoprim) 800-160 Mg Tab 1 Tab PO BID Doxycycline Hyclate 100 Mg Cap 100 Mg PO BID Pantoprazole (Pantoprazole Sodium) 40 Mg Tab 40 Mg PO DAILY Furosemide 40 Mg Tab 40 Mg PO DAILY K-Tab (Potassium Chloride) 20 Meq Tab 2 Tab PO BID Tylenol (Acetaminophen) 325 Mg Tab 650 Mg PO Q6H PRN Imuran (Azathioprine) 50 Mg Tab 50 Mg PO BID Hazardous agent: use appropriate precautions for handling and disposal. Reported Pentasa (Mesalamine) 250 Mg Caper 1,000 Mg PO BID Review of Systems Except as stated in HPI: all other systems reviewed are Neg Physical Exam Narrative GENERAL: Skinny 51-year-old man, nontoxic. SKIN: Warm and dry. CARDIOVASCULAR: Warm and well perfused. RESPIRATORY: Normal rate and effort. MUSCULOSKELETAL: Right elbow abscess appears to be significantly improving. There is still a bit of drainage. Packing is still in place. NEUROLOGICAL: Awake and alert. No gross deficits. Data Data Last Documented VS Vital Signs Date Time Temp Pulse Resp B/P Pulse Ox O2 Delivery O2 Flow Rate FiO2 02/11/17 15:43 98.0 101 14 104/57 98 MDM Medical Decision Making Medical Screen Exam Complete: Yes Emergency Medical Condition: Yes Differential Diagnosis Abscess, cellulitis, septic bursitis, other Narrative Course Medical decision-making new para 51-year-old man with improving cellulitis and abscess. Recommend continue antibiotics. Continue drainage. Return for any worsening symptoms. Diagnosis Primary Impression: Cellulitis of right elbow Additional Impression: Abscess Additional Instructions: Remove wick tomorrow in the shower. Continue antibiotics until gone. Return to the emergency department for any worsening pain, swelling, fevers, or any other new or worsening symptoms. Med/Other Pt SpecificInfo: No Change to Meds Disposition: 01 DISCHARGE HOME Condition: Stable Gabriel Egan MD Feb 11, 2017 16:51
== END 2017-02-11 17:09 | disposition home or self-care (01) ==
LOC: NEPE 15:42
DX: L03.113 Cellulitis of right upper limb (principal)
CPT/HCPCS: 99281

== ENCOUNTER 2017-03-03 10:42 | Inpatient (IN) | payer OTHER ==
[2017-03-03] VITALS (8 sets, daily range): BP systolic 90–106; BP diastolic 53–67; PULSE 68–83; RESP 16–20; TEMP 97.7; O2SAT 100
[~2017-03-03] VITALS: Ht 182.9 cm; Wt 55.8 kg
[2017-03-03] MEDS ORDERED: SODIUM CHLOR 0.9% 1000 ML INJ 1,000 ML IV SCH (11:19)
[2017-03-03] MEDS ORDERED: MORPHINE SULFATE 4 MG/ML INJ IV PUSH ONE (11:30)
--- NOTE | 2017-03-03 11:53 | PD ---
HPI Chief Complaint: Abdominal Pain Time Seen by Provider: 11:10 Travel History International Travel<30 days: No Contact w/Intl Traveler<30days: No Traveled to known affect area: No History of Present Illness HPI This is a 51-year-old male who has a history of Crohn's disease who presents to the emergency department with abdominal discomfort that's been going on for months but has worsened over the past 2 days to the point where he can't sleep. He says the pain is throbbing and aching in the lower abdomen, constant, moderate severity. He's had no vomiting. He Does feel nauseous and has decreased appetite. He says he always has diarrhea and this is not changed. He denies any blood in his stools. He says he is out of most of his medications because his care is being transferred to a different clinic as the community clinic is closing. PFSH Past Medical History Hx Anticoagulant Therapy: No Asthma: Yes Blood Disorders: No Anxiety: Yes Depression: Yes Cancer: No Cardiovascular Problems: No COPD: Yes Diabetes: No Diminished Hearing: No Endocrine: No Gastrointestinal Disorders: Yes (CROHNS) Genitourinary: No Immune Disorder: No Inguinal Hernia: Yes Implanted Vascular Access Dvce: No Musculoskeletal: Yes (BILAT KNEES.) Neurologic: No Psychiatric: Yes Reproductive: No Respiratory: Yes (asthma) Immunizations Current: Yes Pancreatitis: Yes Tetanus Vaccination: > 5 Years Influenza Vaccination: No Past Surgical History Abdominal Surgery: Yes (COLON RESECTION DUE TO CROHNS) Pacemaker: No Tonsillectomy: Yes Other Surgery: Yes (TONSILECTOMY, CHRON'S DISEASE) Social History Alcohol Use: No (quit) Tobacco Use: Yes (1 PPD) Substance Use: No Allergies-Medications (Allergen,Severity, Reaction): Coded Allergies: tetanus toxoid, adsorbed (Unverified Allergy, Severe, Nausea/Vomiting, ) *MDRO Multi-Drug Resistant Organism (Verified Adverse Reaction, Unknown, ) MRSA (arm) 02/10/17 Reported Meds & Prescriptions Reported Meds & Active Scripts Active Nystatin Liq 100,000 unit/ml Susp 5 Ml SWISH-SWAL QID 10 Days Pantoprazole (Pantoprazole Sodium) 40 Mg Tab 40 Mg PO DAILY Furosemide 40 Mg Tab 40 Mg PO DAILY K-Tab (Potassium Chloride) 20 Meq Tab 2 Tab PO BID Imuran (Azathioprine) 50 Mg Tab 50 Mg PO BID Hazardous agent: use appropriate precautions for handling and disposal. Reported Pentasa (Mesalamine) 250 Mg Caper 1,000 Mg PO BID Review of Systems Except as stated in HPI: all other systems reviewed are Neg Physical Exam Narrative GENERAL: Thin chronically ill-appearing SKIN: Focused skin assessment warm and dry. HEAD: Atraumatic. Normocephalic. EYES: Pupils equal and round. No injection or drainage. ENT: Moist mucous membranes NECK: Trachea midline. CARDIOVASCULAR: Regular rate and rhythm. No murmur appreciated. RESPIRATORY: Clear to auscultation. Breath sounds equal bilaterally. GASTROINTESTINAL: diffusely tender to palpation with no rebound or guarding MUSCULOSKELETAL: No obvious deformities. NEUROLOGICAL: Awake and alert. No obvious cranial nerve deficits. Moving all extremities. PSYCHIATRIC: Appropriate mood and affect; insight and judgment normal. Data Data Last Documented VS Vital Signs Date Time Temp Pulse Resp B/P (MAP) Pulse Ox O2 Delivery O2 Flow Rate FiO2 03/03/17 13:30 16 03/03/17 13:12 70 90/54 (66) 100 Room Air 03/03/17 10:53 97.7 Orders Orders Complete Blood Count With Diff (03/03/17 11:19) Comprehensive Metabolic Panel (03/03/17 11:19) Lipase (03/03/17 11:19) Urinalysis - C+S If Indicated (03/03/17 11:19) Ct Abd/Pel W Iv Contrast(Rout) (03/03/17 11:19) Iv Access Insert/Monitor (03/03/17 11:19) Ecg Monitoring (03/03/17 11:19) Oximetry (03/03/17 11:19) Morphine Inj (Morphine Inj) (03/03/17 11:30) Sodium Chlor 0.9% 1000 Ml Inj (Ns 1000 M (03/03/17 11:19) Sodium Chloride 0.9% Flush (Ns Flush) (03/03/17 11:30) Iohexol 350 Inj (Omnipaque 350 Inj) (03/03/17 13:30) Admit Order (Ed Use Only) (03/03/17 14:07) Methylprednisolone So Succ Inj (Solumedr (03/03/17 14:15) Labs Laboratory Tests Test 03/03/17 12:20 03/03/17 12:55 White Blood Count 9.6 TH/MM3 Red Blood Count 2.69 MIL/MM3 Hemoglobin 8.1 GM/DL Hematocrit 24.9 % Mean Corpuscular Volume 92.6 FL Mean Corpuscular Hemoglobin 30.3 PG Mean Corpuscular Hemoglobin Concent 32.7 % Red Cell Distribution Width 22.7 % Platelet Count 235 TH/MM3 Mean Platelet Volume 8.7 FL Neutrophils (%) (Auto) 68.1 % Lymphocytes (%) (Auto) 16.8 % Monocytes (%) (Auto) 12.6 % Eosinophils (%) (Auto) 1.9 % Basophils (%) (Auto) 0.6 % Neutrophils # (Auto) 6.5 TH/MM3 Lymphocytes # (Auto) 1.6 TH/MM3 Monocytes # (Auto) 1.2 TH/MM3 Eosinophils # (Auto) 0.2 TH/MM3 Basophils # (Auto) 0.1 TH/MM3 CBC Comment AUTO DIFF Differential Comment AUTO DIFF CONFIRMED Blood Urea Nitrogen 8 MG/DL Creatinine 0.48 MG/DL Random Glucose 77 MG/DL Total Protein 5.9 GM/DL Albumin 2.4 GM/DL Calcium Level 8.0 MG/DL Alkaline Phosphatase 266 U/L Aspartate Amino Transf (AST/SGOT) 36 U/L Alanine Aminotransferase (ALT/SGPT) 24 U/L Total Bilirubin 0.9 MG/DL Sodium Level 138 MEQ/L Potassium Level 3.0 MEQ/L Chloride Level 107 MEQ/L Carbon Dioxide Level 18.4 MEQ/L Anion Gap 13 MEQ/L Estimat Glomerular Filtration Rate 184 ML/MIN Lipase 133 U/L Urine Collection Type CLEAN CATCH Urine Color YELLOW Urine Turbidity CLEAR Urine pH 6.0 Urine Specific [place] 1.025 Urine Protein TRACE mg/dL Urine Glucose (UA) NEG mg/dL Urine Ketones NEG mg/dL Urine Occult Blood NEG Urine Nitrite NEG Urine Bilirubin NEG Urine Leukocyte Esterase NEG Urine RBC 0-3 /hpf Urine WBC 0-2 /hpf Urine Squamous Epithelial Cells 0-5 /hpf Urine Renal Epithelial Cells 6-8 /hpf Urine Mucus FEW /lpf Microscopic Urinalysis Comment CULT NOT INDICATED Urine Collection Time 12:55 [facility] Medical Decision Making Medical Screen Exam Complete: Yes Emergency Medical Condition: Yes Medical Record Reviewed: Yes (pt was admitted in January in the setting of a possible early bowel obstruction and Crohns flare. at that time he was discharged with prednisone and azathioprine) Interpretation(s) afebrile, no tachycardia, normotensive anemia mild hypokalemia, bicarb low urinalysis: no infection Last 24 hours Impressions Abdomen/Pelvis CT 03/03/17 1119 Signed Impressions: Service Date/Time: Friday, March 03, 2017 13:24 - CONCLUSION: 1. Abnormally thickened segments of distal ileum suspicious for acute inflammatory bowel disease given the patient's history of Crohn disease. The small bowel immediately proximal to the thickened segment of bowel is abnormally dilated and fluid-filled indicating at least a partial obstruction. 2. Large volume of free fluid within the abdomen and pelvis with fluid extending into a right inguinal hernia. Etiology for the free fluid is uncertain. However, there is suspicion for chronic liver disease given the splenomegaly and paraesophageal varices. 3. There is a thickening of the distal esophagus. 4. Enlarged small bowel mesenteric lymph nodes, likely reactive due to the inflammatory process. 5. Nonacute findings include 4 mm nonobstructing renal stone and moderate atherosclerotic disease. Oc Stafford MD Differential Diagnosis exacerbation of Crohns disease, bowel obstruction, abscess, fistula Narrative Course This is a 51 year old male who has a history of Crohns disease who presents to the emergency department with abdominal pain for 2 days. He was placed on a monitor and an IV was established. Labs were obtained which were reassuring. CT imaging demonstrates bowel thickening and an area of possible partial obstruction proximal to this bowel. Given this I think its reasonable to admit the patient for IV steroids, pain control, bowel rest and consultation with GI. Pt. was given IV fluids and methylprednisilone in the emergency department, Physician Communication Physician Communication Discussed with Dr. Contreras Diagnosis Primary Impression: Exacerbation of Crohn's disease Qualified Codes: K50.912 - Crohn's disease, unspecified, with intestinal obstruction Admitting Information Admitting Physician Requests: Admit Lisa Patel MD Mar 03, 2017 11:53
[2017-03-03 12:34] LABS: AUTOMATED NEUTROPHIL # 6.5 TH/MM3 (1.8-7.7); BASOPHIL # 0.1 TH/MM3 (0-0.2); BASOPHIL % 0.6 % (0.0-2.0); EOSINOPHIL # 0.2 TH/MM3 (0-0.4); EOSINOPHIL % 1.9 % (0.0-4.0); HEMATOCRIT 24.9 % (39.0-51.0); LYMPH % 16.8 % (9.0-44.0); LYMPHOCYTE # 1.6 TH/MM3 (1.0-4.8); MEAN CELL VOLUME 92.6 FL (80.0-100.0); MEAN CORPUSCULAR HEMOGLOBIN 30.3 PG (27.0-34.0); MEAN CORPUSCULAR HGB CONC 32.7 % (32.0-36.0); MONO % 12.6 % (0.0-8.0); NEUT % 68.1 % (16.0-70.0); PLATELET COUNT 235 TH/MM3 (150-450); RED BLOOD COUNT 2.69 MIL/MM3 (4.50-5.90); RED CELL DISTRIBUTION WIDTH 22.7 % (11.6-17.2); WHITE BLOOD COUNT 9.6 TH/MM3 (4.0-11.0)
[2017-03-03 12:35] LABS: HEMO FLAGS AUTO DIFF
[2017-03-03 12:41] LABS: CHLORIDE 107 MEQ/L (98-107); SODIUM (NA) 138 MEQ/L (136-145)
[2017-03-03 12:45] LABS: ANION GAP 13 MEQ/L (5-15); BICARBONATE 18.4 MEQ/L (21.0-32.0); BLOOD UREA NITROGEN 8 MG/DL (7-18)
[2017-03-03 12:47] LABS: ALT (GPT) 24 U/L (12-78)
[2017-03-03] MEDS: SODIUM CHLORIDE 0.9% FLUSH 10 ML FLUSH IV FLUSH PRN ×2 (12:47→15:43)
[2017-03-03 12:48] LABS: AST (GOT) 36 U/L (15-37); GLOMERULAR FILTRATION RATE 184 ML/MIN (>89)
[2017-03-03 12:49] LABS: TOTAL BILIRUBIN ADULT 0.9 MG/DL (0.2-1.0)
[2017-03-03 12:50] LABS: ALKALINE PHOSPHATASE 266 U/L (45-117)
[2017-03-03 12:58] LABS: BLOOD, URINE NEG (NEG); GLUCOSE,URINE NEG (NEG); KETONE, URINE NEG (NEG); NITRITE,URINE NEG (NEG)
[2017-03-03 13:03] LABS: METHOD OF COLLECTION CLEAN CATCH; MUCUS URINE FEW /lpf (OCC); SQUAMOUS EPITHELIAL CELL URINE 0-5 /hpf (0-5); URINE COLOR YELLOW (YELLW/STRAW); WBC, URINE 0-2 /hpf (0-5)
[2017-03-03 13:04] LABS: COMMENT (UR) CULT NOT INDICATED; CULTURE IF INDICATED CULT NOT INDICATED; RBC, URINE 0-3 /hpf (0-3)
[2017-03-03 13:07] LABS: SCAN/DIFF AUTO DIFF CONFIRMED
[2017-03-03] MEDS ORDERED: IOHEXOL 350 MG/ML 10 ML VIAL (for RAD DIAG) IVCONTRAST ONE (13:30)
--- NOTE | 2017-03-03 14:04 | RADRPT ---
EXAM DATE/TIME: 03/03/2017 13:24 [facility] COMPARISON: CT ABDOMEN & PELVIS W CONTRAST, January 04, 2017, 20:57. INDICATIONS : Lower abdominal pain for months, worse over past 2 days. IV CONTRAST: 80 cc Omnipaque 350 (iohexol) IV ORAL CONTRAST: No oral contrast ingested. RADIATION DOSE: 5.54 CTDIvol (mGy) MEDICAL HISTORY : Crohn's disease. Chronic obstructive pulmonary disease. Pancreatitis.Hypertension. Asthma. SURGICAL HISTORY : Colon resection. ENCOUNTER: Initial ACUITY: 2 months PAIN SCALE: 8/10 LOCATION: Bilateral lower quadrant TECHNIQUE: Volumetric scanning of the abdomen and pelvis was performed. Using automated exposure control and ad justment of the mA and/or kV according to patient size, radiation dose was kept as low as reasonably achievable to obtain optimal diagnostic quality images. DICOM format image data is available electro nically for review and comparison. FINDINGS: LOWER LUNGS: The visualized lower lungs are clear. LIVER: Homogeneous density without lesion. There is no dilation of the biliary tree. No calcified gallston es. SPLEEN: The spleen is enlarged measuring 14.4 cm. PANCREAS: Within normal limits. KIDNEYS: Normal in size and shape. There is no mass or hydronephrosis. There is a 4 mm nonobstructing right r enal stone. ADRENAL GLANDS: Within normal limits. VASCULAR: There is no aortic aneurysm. There is mild to moderate atherosclerotic disease. BOWEL/MESENTERY: There is thickening of the distal esophagus with what appears to be paraesophageal varices. Stomach i s decompressed and demonstrates no abnormality. Duodenum is within normal limits and proximal jejunum is within normal limits. Distal jejunum or proximal ileum is abnormally dilated measuring up to 4.5 cm. These dilated segments are fluid filled and demonstrates small bowel feces sign. There is a calib er change in the right midabdomen secondary to a circumferentially thickened segment of small bowel. There is a skip segment of thickened small bowel more distally in the distal ileum as well. Small bow el to colon anastomosis demonstrates no abnormality. No acute colon abnormality is seen. There is a l arge volume of free fluid in the abdomen and pelvis. There is no free intraperitoneal air. Enlarged m esenteric lymph nodes are present. ABDOMINAL WALL: Within normal limits. RETROPERITONEUM: There is no lymphadenopathy. BLADDER: No wall thickening or mass. REPRODUCTIVE: Within normal limits. INGUINAL: There is no lymphadenopathy. There is a right inguinal hernia containing fluid.. MUSCULOSKELETAL: No acute osseous abnormality is identified. CONCLUSION: 1. Abnormally thickened segments of distal ileum suspicious for acute inflammatory bowel disease give n the patient's history of Crohn disease. The small bowel immediately proximal to the thickened segme nt of bowel is abnormally dilated and fluid-filled indicating at least a partial obstruction. 2. Large volume of free fluid within the abdomen and pelvis with fluid extending into a right inguina l hernia. Etiology for the free fluid is uncertain. However, there is suspicion for chronic liver dis ease given the splenomegaly and paraesophageal varices. 3. There is a thickening of the distal esophagus. 4. Enlarged small bowel mesenteric lymph nodes, likely reactive due to the inflammatory process. 5. Nonacute findings include 4 mm nonobstructing renal stone and moderate atherosclerotic disease. Oc Stafford MD on March 03, 2017 at 13:53 Board Certified Radiologist. This report was verified electronically.
[2017-03-03] MEDS ORDERED: methylPREDNISolone SOD SUCC 125 MG/2 ML VIAL IV PUSH ONE (14:15)
[2017-03-03] MEDS ORDERED: MAGNESIUM SULFATE 1 GM PREMIX 100 ML IV ONE (15:00)
[2017-03-03] MEDS ORDERED: POTASSIUM CHLORIDE 10 MEQ CONTROLLED RELEASE TAB PO ONE (15:00)
[2017-03-03] MEDS ORDERED: FURO40TA PO ×2 (16:15→18:03)
[2017-03-03] MEDS ORDERED: POTA1TAB4 PO ×2 (16:15→18:03)
[2017-03-03] MEDS ORDERED: MESA250 PO ×2 (16:15→18:03)
[2017-03-03] MEDS ORDERED: PANT40TA3 PO ×2 (16:15→18:03)
[2017-03-03] MEDS ORDERED: NYST1000 SWISH-SWAL ×2 (16:15→18:03)
[2017-03-03] MEDS ORDERED: PRED10PA2 PO ×2 (16:15→18:03)
[2017-03-03] MEDS ORDERED: CIPR-9 PO ×2 (16:17→18:03)
[2017-03-03] MEDS ORDERED: MIRA3350 PO ×2 (16:17→18:03)
[2017-03-03] MEDS ORDERED: METR-1 PO ×2 (16:17→18:03)
--- NOTE | 2017-03-03 16:24 | PD.CONS ---
HPI Service [facility] Consult Requested By Primary Care Physician No Primary Care Physician Diagnoses: History of Present Illness 51-year-old male with a history of Crohn's disease, asthma, pancreatitis, reflux , depression, who presents with 2 day history of worsening crampy bilateral lower quadrant abdominal pain. He also reports nausea and decreased appetite over the past 2 days. He reports chronic loose bowel movements. Denies any chest pain or shortness of breath. Here reports running out of all of his medications due to not being refilled. CT abdomen shows Crohn's flare versus colitis, as well as partial small bowel obstruction proximal to this. Past Family Social History Allergies: Coded Allergies: tetanus toxoid, adsorbed (Unverified Allergy, Severe, Nausea/Vomiting, ) *MDRO Multi-Drug Resistant Organism (Verified Adverse Reaction, Unknown, ) MRSA (arm) 02/10/17 Past Medical History Crohn's disease Asthma Pancreatitis Reflux Depression Past Surgical History Bowel resection in the past Reported Medications patient says he is not taking any medications for the past month. Past medications in chart reviewed. Family History Mother with stroke at age 68. Father with chronic colitis Social History Patient has smoked one half pack per day for the past 30 years. Denies any alcohol. Denies any illicit drugs. Physical Exam Vital Signs Vital Signs Date Time Temp Pulse Resp B/P (MAP) Pulse Ox O2 Delivery O2 Flow Rate FiO2 03/03/17 15:15 16 03/03/17 15:01 69 16 101/66 (78) 100 Room Air 03/03/17 14:18 70 16 97/58 (71) 100 Room Air 03/03/17 13:30 16 03/03/17 13:12 70 16 90/54 (66) 100 Room Air 03/03/17 13:00 16 03/03/17 12:45 68 16 90/53 (65) 100 Room Air 03/03/17 11:33 16 100 Room Air 03/03/17 11:24 16 03/03/17 10:53 97.7 83 20 106/61 (76) 100 Physical Exam GENERAL: This is a well-nourished, well-developed patient, in no apparent distress.alert and oriented 4. SKIN: No rashes, ecchymoses or lesions. Cool and dry. HEAD: Atraumatic. Normocephalic. No temporal or scalp tenderness. EYES: Pupils equal round and reactive. Extraocular motions intact. No scleral icterus. No injection or drainage. ENT: Nose without bleeding, purulent drainage or septal hematoma. Throat without erythema, tonsillar hypertrophy or exudate. Uvula midline. Airway patent. NECK: Trachea midline. No JVD or lymphadenopathy. Supple, nontender, no meningeal signs. CARDIOVASCULAR: Regular rate and rhythm without murmurs, gallops, or rubs. RESPIRATORY: Clear to auscultation. Breath sounds equal bilaterally. No wheezes , rales, or rhonchi. GASTROINTESTINAL: Abdomen with mild tenderness to palpation. No rebound or guarding.. No hepato-splenomegaly, or palpable masses. No guarding. MUSCULOSKELETAL: Extremities without clubbing, cyanosis, or edema. No joint tenderness, effusion, or edema noted. No calf tenderness. Negative Homans sign bilaterally. NEUROLOGICAL: Awake and alert. Cranial nerves II through XII intact. Motor and sensory grossly within normal limits. Five out of 5 muscle strength in all muscle groups. Normal speech. Laboratory Laboratory Tests Test 03/03/17 12:20 03/03/17 12:55 White Blood Count 9.6 Red Blood Count 2.69 Hemoglobin 8.1 Hematocrit 24.9 Mean Corpuscular Volume 92.6 Mean Corpuscular Hemoglobin 30.3 Mean Corpuscular Hemoglobin Concent 32.7 Red Cell Distribution Width 22.7 Platelet Count 235 Mean Platelet Volume 8.7 Neutrophils (%) (Auto) 68.1 Lymphocytes (%) (Auto) 16.8 Monocytes (%) (Auto) 12.6 Eosinophils (%) (Auto) 1.9 Basophils (%) (Auto) 0.6 Neutrophils # (Auto) 6.5 Lymphocytes # (Auto) 1.6 Monocytes # (Auto) 1.2 Eosinophils # (Auto) 0.2 Basophils # (Auto) 0.1 CBC Comment AUTO DIFF Differential Comment AUTO DIFF CONFIRMED Blood Urea Nitrogen 8 Creatinine 0.48 Random Glucose 77 Total Protein 5.9 Albumin 2.4 Calcium Level 8.0 Alkaline Phosphatase 266 Aspartate Amino Transf (AST/SGOT) 36 Alanine Aminotransferase (ALT/SGPT) 24 Total Bilirubin 0.9 Sodium Level 138 Potassium Level 3.0 Chloride Level 107 Carbon Dioxide Level 18.4 Anion Gap 13 Estimat Glomerular Filtration Rate 184 Magnesium Level 1.4 Lipase 133 Urine Collection Type CLEAN CATCH Urine Color YELLOW Urine Turbidity CLEAR Urine pH 6.0 Urine Specific [place] 1.025 Urine Protein TRACE Urine Glucose (UA) NEG Urine Ketones NEG Urine Occult Blood NEG Urine Nitrite NEG Urine Bilirubin NEG Urine Leukocyte Esterase NEG Urine RBC 0-3 Urine WBC 0-2 Urine Squamous Epithelial Cells 0-5 Urine Renal Epithelial Cells 6-8 Urine Mucus FEW Microscopic Urinalysis Comment CULT NOT INDICATED Urine Collection Time 12:55 Result Diagram: 03/03/17 1220 03/03/17 1220 Imaging Last Impressions Abdomen/Pelvis CT 03/03/17 1119 Signed Impressions: Service Date/Time: Friday, March 03, 2017 13:24 - CONCLUSION: 1. Abnormally thickened segments of distal ileum suspicious for acute inflammatory bowel disease given the patient's history of Crohn disease. The small bowel immediately proximal to the thickened segment of bowel is abnormally dilated and fluid-filled indicating at least a partial obstruction. 2. Large volume of free fluid within the abdomen and pelvis with fluid extending into a right inguinal hernia. Etiology for the free fluid is uncertain. However, there is suspicion for chronic liver disease given the splenomegaly and paraesophageal varices. 3. There is a thickening of the distal esophagus. 4. Enlarged small bowel mesenteric lymph nodes, likely reactive due to the inflammatory process. 5. Nonacute findings include 4 mm nonobstructing renal stone and moderate atherosclerotic disease. Oc Stafford MD Assessment and Plan Assessment and Plan //Crohn's exacerbation //Partial small bowel obstruction -Likely partial small bowel obstruction secondary to Crohn's flare. -Discussed at length with patient the need to stay for IV steroids, antibiotics. He says he is now tolerating food, wishes to go home. I recommend Ensure Plus supplement. I made quite clear that I advised against leaving, and there is risk of worsening, with possibility of . Patient conveys understanding. Medications were refilled. Prescribed antibiotics, prednisone taper. Close follow-up GI //Anasarca //Ascites -Continue Lasix, which patient had run out of //Non-anion gap metabolic acidosis. Likely secondary to loose bowel movements/ colitis -Expect to improve with Crohn's flare. //Tobacco abuse. Strongly recommend discontinuing smoking. Counseling cessation provided. Discussed the negative effects of nicotine on Crohn's disease. //Hypokalemia. 3.0 //Hypomagnesemia. 1.4. Replaced. Discussed Condition With patient, nurse, ED physician, gastroenterology. Gal Contreras MD Mar 03, 2017 16:23
--- NOTE | 2017-03-03 19:29 | MB ---
cc: ELIZABETH BELTRAN DATE OF CONSULTATION 03/03/[address] Contreras REASON FOR CONSULTATION Crohn's disease, abdominal pain. HISTORY OF PRESENT ILLNESS Mr. Portillo is a 51-year-old gentleman with history of Crohn's disease diagnosed many years ago ,status post small-bowel resection many years ago ,admitted recently to the hospital with nausea, vomiting, abdominal pain, abnormal CT. Findings suggestive of recurrence of his Crohn's disease. The patient was not on medication for his Crohn's disease for many, many years until his recent discharge from the hospital. The patient also has a history of pancreatitis, reflux and alcoholic liver disease. He was evaluated during his last admission to the hospital with an upper endoscopy, was scheduled to have a colonoscopy as an outpatient. He was also seen by surgical technologist and at that time ,was felt that no surgical intervention would be necessary . He was discharged on mesalamine, Lasix, potassium chloride, prednisone, Imuran and Protonix. He stated he was compliant with his medication until recently, but he was unable to fill them recently. He was also unclear which doctor he should be seeing and which mediations needs to refill. He came back to the emergency room with complaints of abdominal pain, grumbling in the abdomen. CT abdomen and pelvis showed thickening of the distal ileum suspicious for acute inflammation of the bowel, also large volume of free fluid within the abdomen and pelvis with fluid extending to the right inguinal hernia, etiology unclear, possibly secondary to portal hypertension. He denies any nausea, vomiting, melena, hematemesis or hematochezia. He would like to go home today as he has things to take care of over the weekend. ALLERGIES TETANUS TOXOID ABSORBANT. PAST MEDICAL HISTORY 1. Crohn'S disease 2. Asthma 3. Pancreatitis 4. Reflux, 5. Depression PAST SURGICAL HISTORY 1. Tonsillectomy. 2. Bowel resection secondary to Crohn's disease. SOCIAL HISTORY Denies any alcohol use, quit a couple of years ago. Smokes one pack of cigarettes daily. MEDICATIONS In the hospital the patient was given 1. Solu-Medrol 2. Morphine 3. Magnesium sulfate 4. Potassium chloride REVIEW OF SYSTEMS He denies any fever or chills. He does have decreased appetite, weight loss. ENT: No alteration in baseline hearing or visual acuity PULMONARY: Denies any chest pain, shortness of breath. GASTROINTESTINAL: As above. GENITOURINARY: Denies dysuria, hematuria. HEMATOLOGIC: He does have history of anemia and no bleeding disorder. PHYSICAL EXAMINATION GENERAL: He is sitting in bed in no acute distress, emaciated, chronically ill. HEENT: Pupils equal, round, reactive to light and accommodation NECK: No JVD, no lymphadenopathy CHEST: Clear to the auscultation and palpation. CARDIOVASCULAR: S1, S2. No murmur. ABDOMEN: Soft, distended and tender in the lower abdomen. Bowel sounds decreased. MORTAR MAKER: Awake, alert, oriented x3. No focal signs identified. LABORATORY DATA Her potassium is three, calcium 8, alkaline phosphatase 266, magnesium 1.4. White count 9.6, hemoglobin 8.1, platelets 235. IMAGING STUDIES CT abdomen and pelvis as described. IMPRESSION Acute exacerbation of Crohn's disease secondary to noncompliance, large amount of fluid in the abdomen most likely secondary to portal hypertension. Will need paracentesis. Other etiology like contained perforation needs to be ruled out. RECOMMENDATIONS IV steroids IV antibiotics, Cipro and Flagyl. Ultrasound guided paracentesis, fluid for total protein, albumin and cultures, cytology. Continue Imuran, Asacol. Will need colonoscopy as the patient did not have with last admission. Supportive care. Further recommendation will depend on the patient's clinical status and the above results. I spoke with the patient and I advised him not to go home as I feel it is not safe for him to go home at this time and he may need IV therapy. Thank you again. We will continue to follow the patient along with you. Elizabeth Beltran MD BSB/SA /4:45 PM /7:10 PM SURESH
== END 2017-03-03 18:11 | disposition home or self-care (01) | DRG 386 ==
LOC: PHED 10:42 → PHEDA 14:08
PROVIDERS: ADMIT Internal Medicine; ATTEND Internal Medicine
DX: K50.012 Crohn's disease of small intestine with intestinal obstruction (principal); R18.8 Other ascites; E87.2 Acidosis; E83.42 Hypomagnesemia; K76.6 Portal hypertension; J45.909 Unspecified asthma, uncomplicated; F32.9 Major depressive disorder, single episode, unspecified; F41.9 Anxiety disorder, unspecified; J44.9 Chronic obstructive pulmonary disease, unspecified; F17.210 Nicotine dependence, cigarettes, uncomplicated; E87.6 Hypokalemia; K21.9 Gastro-esophageal reflux disease without esophagitis; Z91.19 Patient's noncompliance with other medical treatment and regimen
CPT/HCPCS: 74177; 80053; 81001; 83690; 83735; 85025; 96361; 96374; J2270; J2930; J3475; J7030; Q9967

== ENCOUNTER 2017-04-09 18:13 | Inpatient (IN) | payer OTHER ==
[~2017-04-09] VITALS: Ht 182.9 cm; Wt 60.2 kg
[~2017-04-09 18:13] MED LIST changes: -BACT800T5 PO; +CIPR-9 PO; -DOXY100C PO; -HYDR-3533 PO; +METR-1 PO; +MIRA3350 PO; +PRED10PA2 PO; -TYLE325T PO
[2017-04-09 18:26] VITALS: BP 113/67; PULSE 99; RESP 20; TEMP 98.8; O2SAT 100
[2017-04-09 19:08] VITALS: BP 128/75; PULSE 95; RESP 18; TEMP 98.8; O2SAT 100
[2017-04-09] MEDS ORDERED: SODIUM CHLOR 0.9% 1000 ML INJ 1,000 ML IV SCH (19:12)
[2017-04-09] MEDS ORDERED: FAMOTIDINE 20 MG/2 ML VIAL IV PUSH ONE (19:15)
--- NOTE | 2017-04-09 19:18 | PD ---
HPI Chief Complaint: Abdominal Pain Time Seen by Provider: 19:01 Travel History International Travel<30 days: No Contact w/Intl Traveler<30days: No Traveled to known affect area: No History of Present Illness HPI The patient is a 51-year-old male who complains of abdominal pain and swelling for several weeks. He has not had swelling this extensively before. He has never required a paracentesis to relieve pressure in the abdomen. He does have a history of alcohol abuse, cirrhosis, pancreatitis, Crohn's disease, GERD and ascites in the past. He also has a history of small bowel obstruction and rectal bleeding. He states he quit alcohol 8 months ago. He still smokes a pack a day. He denies any fever but does have nausea no vomiting. He denies any melanotic or bloody stools except occasionally has bright red blood with the stool. He complains of an aching pain of 9/10. PFSH Past Medical History Hx Anticoagulant Therapy: No Asthma: Yes Blood Disorders: No Anxiety: Yes Depression: Yes Cancer: No Cardiovascular Problems: No COPD: Yes Diabetes: No Diminished Hearing: No Endocrine: No Gastrointestinal Disorders: Yes (CROHNS) Genitourinary: No Immune Disorder: No Inguinal Hernia: Yes Implanted Vascular Access Dvce: No Musculoskeletal: Yes (BILAT KNEES.) Neurologic: No Psychiatric: Yes Reproductive: No Respiratory: Yes (asthma) Immunizations Current: Yes Pancreatitis: Yes Tetanus Vaccination: Never Vaccinated Influenza Vaccination: No Past Surgical History Abdominal Surgery: Yes (COLON RESECTION DUE TO CROHNS) Pacemaker: No Tonsillectomy: Yes Other Surgery: Yes (TONSILECTOMY, CHRON'S DISEASE) Social History Alcohol Use: No (quit) Tobacco Use: Yes (1 PPD) Substance Use: No Allergies-Medications (Allergen,Severity, Reaction): Coded Allergies: tetanus toxoid, adsorbed (Unverified Allergy, Severe, Nausea/Vomiting, 04/09/17) *MDRO Multi-Drug Resistant Organism (Verified Adverse Reaction, Unknown, 04/09/17) MRSA (arm) 02/10/17 Reported Meds & Prescriptions Reported Meds & Active Scripts Active Miralax Powder (Polyethylene Glycol 3350 Powder) 17 Gm Powd 17 Gm PO DAILY Mix and dissolve one measuring cap-ful (17 grams) in water or juice. Pantoprazole (Pantoprazole Sodium) 40 Mg Tab 40 Mg PO DAILY K-Tab (Potassium Chloride) 20 Meq Tab 1 Tab PO BID Pentasa (Mesalamine) 250 Mg Caper 1,000 Mg PO BID 30 Days Review of Systems Except as stated in HPI: all other systems reviewed are Neg Physical Exam Narrative GENERAL: The patient is thin, alert, oriented 3 in moderate apparent distress with his abdominal pain/swelling. His vital signs show heart rate of 99 but otherwise normal. SKIN: Focused skin assessment warm/dry. HEAD: Atraumatic. Normocephalic. EYES: Pupils equal and round. No scleral icterus. No injection or drainage. ENT: No nasal bleeding or discharge. Mucous membranes pink and moist. NECK: Trachea midline. No JVD. CARDIOVASCULAR: Regular rate and rhythm. No murmur appreciated. RESPIRATORY: No accessory muscle use. Clear to auscultation. Breath sounds equal bilaterally. GASTROINTESTINAL: Abdomen soft, non-tender, nondistended. Hepatic and splenic margins not palpable. MUSCULOSKELETAL: No obvious deformities. No clubbing. No cyanosis. No edema. NEUROLOGICAL: Awake and alert. No obvious cranial nerve deficits. Motor grossly within normal limits. Normal speech. PSYCHIATRIC: Appropriate mood and affect; insight and judgment normal. RECTAL EXAM: No masses or tenderness, stool is very dark brown and strongly guaiac positive. Data Data Last Documented VS Vital Signs Date Time Temp Pulse Resp B/P (MAP) Pulse Ox O2 Delivery O2 Flow Rate FiO2 04/09/17 19:45 18 98 Room Air 04/09/17 19:08 98.8 95 Orders Orders Complete Blood Count With Diff (04/09/17 19:12) Comprehensive Metabolic Panel (04/09/17 19:12) Lipase (04/09/17 19:12) Urinalysis - C+S If Indicated (04/09/17 19:12) Iv Access Insert/Monitor (04/09/17 19:12) Ecg Monitoring (04/09/17 19:12) Oximetry (04/09/17 19:12) Sodium Chlor 0.9% 1000 Ml Inj (Ns 1000 M (04/09/17 19:12) Sodium Chloride 0.9% Flush (Ns Flush) (04/09/17 19:15) Electrocardiogram (04/09/17 19:12) Famotidine Inj (Pepcid Inj) (04/09/17 19:15) Admit Order (Ed Use Only) (04/09/17 21:30) Prothrombin Time / Inr (Pt) (04/09/17 21:32) Act Partial Throm Time (Ptt) (04/09/17 21:32) Labs Laboratory Tests Test 04/09/17 19:45 White Blood Count 9.5 TH/MM3 Red Blood Count 2.40 MIL/MM3 Hemoglobin 7.2 GM/DL Hematocrit 22.3 % Mean Corpuscular Volume 93.0 FL Mean Corpuscular Hemoglobin 30.2 PG Mean Corpuscular Hemoglobin Concent 32.5 % Red Cell Distribution Width 18.4 % Platelet Count 138 TH/MM3 Mean Platelet Volume 7.5 FL Neutrophils (%) (Auto) 71.9 % Lymphocytes (%) (Auto) 15.8 % Monocytes (%) (Auto) 8.2 % Eosinophils (%) (Auto) 3.4 % Basophils (%) (Auto) 0.7 % Neutrophils # (Auto) 6.8 TH/MM3 Lymphocytes # (Auto) 1.5 TH/MM3 Monocytes # (Auto) 0.8 TH/MM3 Eosinophils # (Auto) 0.3 TH/MM3 Basophils # (Auto) 0.1 TH/MM3 CBC Comment DIFF FINAL Differential Comment Prothrombin Time 12.9 SEC Prothromb Time International Ratio 1.2 RATIO Activated Partial Thromboplast Time 32.3 SEC Blood Urea Nitrogen 9 MG/DL Creatinine 0.74 MG/DL Random Glucose 77 MG/DL Total Protein 6.1 GM/DL Albumin 2.7 GM/DL Calcium Level 8.1 MG/DL Alkaline Phosphatase 199 U/L Aspartate Amino Transf (AST/SGOT) 36 U/L Alanine Aminotransferase (ALT/SGPT) 27 U/L Total Bilirubin 0.8 MG/DL Sodium Level 142 MEQ/L Potassium Level 3.9 MEQ/L Chloride Level 113 MEQ/L Carbon Dioxide Level 20.9 MEQ/L Anion Gap 8 MEQ/L Estimat Glomerular Filtration Rate 112 ML/MIN Lipase 158 U/L MDM Medical Decision Making Medical Screen Exam Complete: Yes Emergency Medical Condition: Yes Medical Record Reviewed: Yes Interpretation(s) The EKG is normal with a sinus rhythm of 86. The complete metabolic profile shows a bicarbonate 20.9, alkaline phosphatase of 199, total protein 6.1 and albumen 2.7 but is otherwise unremarkable. The lipase is normal. The CBC shows a hemoglobin of 7.2 and hematocrit of 22.3 and a platelet count of 138, 000. Differential Diagnosis Cirrhosis, pancreatitis, GI bleed, ascites, small bowel obstruction-unlikely, electrolyte balance, dehydration, anemia Narrative Course The patient has upper GI bleed with anemia and ascites. The ascites is painful. The anemia is asymptomatic at this time. Diagnosis Primary Impression: Upper GI bleed Additional Impressions: Anemia Ascites due to alcoholic cirrhosis Admitting Information Admitting Physician Requests: Admit Naveed Varner MD Apr 09, 2017 19:18
[2017-04-09 19:45] VITALS: RESP 18; O2SAT 98
[2017-04-09 19:55] LABS: AUTOMATED NEUTROPHIL # 6.8 TH/MM3 (1.8-7.7); BASOPHIL # 0.1 TH/MM3 (0-0.2); BASOPHIL % 0.7 % (0.0-2.0); EOSINOPHIL # 0.3 TH/MM3 (0-0.4); EOSINOPHIL % 3.4 % (0.0-4.0); HEMATOCRIT 22.3 % (39.0-51.0); HEMO FLAGS DIFF FINAL; LYMPH % 15.8 % (9.0-44.0); LYMPHOCYTE # 1.5 TH/MM3 (1.0-4.8); MEAN CORPUSCULAR HEMOGLOBIN 30.2 PG (27.0-34.0); MEAN CORPUSCULAR HGB CONC 32.5 % (32.0-36.0); MONO % 8.2 % (0.0-8.0); NEUT % 71.9 % (16.0-70.0); PLATELET COUNT 138 TH/MM3 (150-450); RED CELL DISTRIBUTION WIDTH 18.4 % (11.6-17.2); WHITE BLOOD COUNT 9.5 TH/MM3 (4.0-11.0)
[2017-04-09 20:10] LABS: CHLORIDE 113 MEQ/L (98-107); POTASSIUM 3.9 MEQ/L (3.5-5.1); SODIUM (NA) 142 MEQ/L (136-145)
[2017-04-09 20:13] LABS: ANION GAP 8 MEQ/L (5-15); BICARBONATE 20.9 MEQ/L (21.0-32.0)
[2017-04-09 20:14] LABS: BLOOD UREA NITROGEN 9 MG/DL (7-18)
[2017-04-09 20:16] LABS: ALT (GPT) 27 U/L (12-78); AST (GOT) 36 U/L (15-37)
[2017-04-09 20:17] LABS: GLOMERULAR FILTRATION RATE 112 ML/MIN (>89)
[2017-04-09 20:18] LABS: TOTAL BILIRUBIN ADULT 0.8 MG/DL (0.2-1.0)
[2017-04-09 20:19] LABS: ALKALINE PHOSPHATASE 199 U/L (45-117)
[2017-04-09 21:00] VITALS: BP 118/74; PULSE 88; RESP 18; O2SAT 99
[2017-04-09] MEDS ORDERED: ONDANSETRON HCL 4 MG/2 ML VIAL IVP ONE (21:45)
[2017-04-09] MEDS ORDERED: MORPHINE SULFATE 4 MG/ML INJ IV PUSH ONE (21:45)
[2017-04-09] MEDS ORDERED: SODIUM CHLOR 0.9% 250 ML INJ 250 ML IV ONE (21:45)
[2017-04-09 21:49] LABS: APTT (PATIENT) 32.3 SEC (24.3-30.1); INTERNATIONAL NORMALIZED RATIO 1.2 RATIO; PROTHROMBIN TIME - PATIENT 12.9 SEC (9.8-11.6)
[2017-04-09] MEDS ORDERED: LORazepam 2 MG TAB PO PRN (22:15)
[2017-04-09] MEDS ORDERED: HALOPERIDOL LACTATE 5 MG/ML AMP IM PRN (22:15)
[2017-04-09] MEDS ORDERED: LORazepam 1 MG TAB PO PRN (22:15)
[2017-04-09] MEDS ORDERED: ACETAMINOPHEN 325 MG TAB PO PRN (22:15)
[2017-04-09] MEDS ORDERED: SENNOSIDES 8.6 MG TAB PO PRN (22:15)
[2017-04-09] MEDS ORDERED: LORazepam 2 MG/ML VIAL IV PUSH PRN ×4 (22:15)
[2017-04-09] MEDS ORDERED: FLUMAZENIL 0.5 MG/5 ML VIAL IV PUSH PRN (22:15)
[2017-04-09] MEDS ORDERED: SODIUM CHLORIDE 0.9% FLUSH 10 ML FLUSH IV FLUSH PRN (22:15)
[2017-04-09] MEDS ORDERED: LACTULOSE SYRUP 20 GM/30 ML CUP PO PRN (22:15)
[2017-04-09] MEDS ORDERED: BISACODYL 10 MG SUPP RECTAL PRN (22:15)
[2017-04-09] MEDS ORDERED: MAGNESIUM HYDROXIDE SUSP 30 ML CUP PO PRN (22:15)
[2017-04-09 22:18] LABS: BLOOD, URINE NEG (NEG); GLUCOSE,URINE NEG (NEG); KETONE, URINE NEG (NEG); NITRITE,URINE NEG (NEG); PH, URINE 5.5 (5.0-8.5)
[2017-04-09 22:24] LABS: URINE COLOR AMBER (YELLW/STRAW)
[2017-04-09 22:25] LABS: MUCUS URINE MOD /lpf (OCC)
[2017-04-09 22:26] LABS: RBC, URINE 0-3 /hpf (0-3); SQUAMOUS EPITHELIAL CELL URINE 0-5 /hpf (0-5); WBC, URINE 0-2 /hpf (0-5)
[2017-04-09 22:27] LABS: COMMENT (UR) CULT NOT INDICATED; CULTURE IF INDICATED CULT NOT INDICATED
[2017-04-09 22:33] VITALS: BP 112/74; PULSE 86; RESP 18; O2SAT 99
[2017-04-09 22:45] VITALS: BP 125/84; PULSE 100; RESP 16; TEMP 97.5; O2SAT 100
[2017-04-10] VITALS (13 sets, daily range): BP systolic 106–139; BP diastolic 54–87; PULSE 92–120; RESP 16–20; TEMP 97.2–100.9; O2SAT 96–99
[2017-04-10] MEDS ORDERED: MORPHINE SULFATE 4 MG/ML INJ IV PUSH ONE (00:45)
[2017-04-10] MEDS: PANTOPRAZOLE INJ 80 MG in SODIUM CHLORIDE 0.9% INJ 100 ML IV SCH ×3 (00:53→21:47)
[2017-04-10] MEDS: SODIUM CHLORIDE 0.9% FLUSH 10 ML FLUSH IV FLUSH PRN ×3 (00:53→23:39)
[2017-04-10] MEDS: ONDANSETRON HCL 4 MG/2 ML VIAL IVP PRN ×3 (04:52→20:53)
[2017-04-10 06:36] LABS: AUTOMATED NEUTROPHIL # 10.4 TH/MM3 (1.8-7.7); BASOPHIL % 0.4 % (0.0-2.0); EOSINOPHIL # 0.1 TH/MM3 (0-0.4); HEMATOCRIT 23.8 % (39.0-51.0); LYMPH % 6.8 % (9.0-44.0); LYMPHOCYTE # 0.8 TH/MM3 (1.0-4.8); MEAN CORPUSCULAR HEMOGLOBIN 30.2 PG (27.0-34.0); MEAN CORPUSCULAR HGB CONC 32.8 % (32.0-36.0); MONO % 5.8 % (0.0-8.0); PLATELET COUNT 179 TH/MM3 (150-450); RED BLOOD COUNT 2.58 MIL/MM3 (4.50-5.90); RED CELL DISTRIBUTION WIDTH 18.9 % (11.6-17.2)
[2017-04-10 06:39] LABS: HEMO FLAGS DIFF FINAL
[2017-04-10 06:41] LABS: CHLORIDE 112 MEQ/L (98-107); SODIUM (NA) 140 MEQ/L (136-145)
[2017-04-10 06:44] LABS: ANION GAP 9 MEQ/L (5-15); BICARBONATE 19.5 MEQ/L (21.0-32.0)
[2017-04-10 06:45] LABS: BLOOD UREA NITROGEN 9 MG/DL (7-18)
[2017-04-10 06:47] LABS: ALT (GPT) 28 U/L (12-78)
[2017-04-10 06:48] LABS: AST (GOT) 31 U/L (15-37); GLOMERULAR FILTRATION RATE 137 ML/MIN (>89)
[2017-04-10 06:49] LABS: TOTAL BILIRUBIN ADULT 1.1 MG/DL (0.2-1.0)
[2017-04-10 06:50] LABS: ALKALINE PHOSPHATASE 178 U/L (45-117)
[2017-04-10] MEDS: MULTIVITAMINS/MINERALS THERAPEUTIC TAB PO SCH (09:00)
[2017-04-10] MEDS: THIAMINE HCL 100 MG TAB PO SCH (09:00)
[2017-04-10] MEDS: SODIUM CHLORIDE 0.9% FLUSH 10 ML FLUSH IV FLUSH SCH ×2 (09:00→20:54)
[2017-04-10] MEDS: MESALAMINE 250 MG CAP PO SCH ×2 (09:00→20:53)
[2017-04-10] MEDS: DOCUSATE SODIUM 50 MG/SENNA 8.6 MG TAB PO SCH ×2 (09:00→20:52)
[2017-04-10] MEDS: FOLIC ACID 1 MG TAB PO SCH (09:00)
[2017-04-10] MEDS: NICOTINE 21 MG/24 HR PATCH T-DERMAL SCH (09:42)
[2017-04-10] MEDS ORDERED: PANTOPRAZOLE INJ 80 MG in SODIUM CHLORIDE 0.9% INJ 100 ML IV SCH (09:55)
--- NOTE | 2017-04-10 10:00 | HHI.HP ---
[facility] No Primary Care Physician Admission Diagnosis upper GI bleed, anemia, ascites Diagnoses: (1) Ascites due to alcoholic cirrhosis Diagnosis: Principal (2) Upper GI bleed Diagnosis: Principal (3) Anemia Diagnosis: Secondary (4) Tobacco abuse Diagnosis: Secondary Travel History International Travel<30 Days: No Contact w/Intl Traveler <30 Da: No Traveled to Known Affected Are: No History of Present Illness Mr. st is a 51-year-old male. He came into the hospital with complaints of 2 weeks of abdominal pain. He is also been noticing loss of blood per rectum. She has a history of cirrhosis secondary to alcohol abuse. At this time he also has evidence of somatic ascites. He complains of abdominal distention and pain and tenderness in addition to testicular swelling. Patient had a hemoglobin of 7.2 at time of arrival. He has been transfused packed red blood cells for this and transfusion is ongoing. No fevers reported. He does have episodes of nausea and vomiting. At baseline he smokes 1 pack per day but no longer is drinking alcohol. No other complaints today. Review of Systems Constitutional: COMPLAINS OF: Fatigue, Change in appetite, DENIES: Fever, Weight gain, Weight loss, Chills, Dizziness, Night Sweats Eyes: DENIES: Blurred vision, Diplopia, Eye pain Ears, nose, mouth, throat: DENIES: Tinnitus, Hearing loss, Vertigo Respiratory: DENIES: Cough, Wheezing, Shortness of breath Cardiovascular: DENIES: Chest pain, Palpitations, Syncope, Dyspnea on Exertion Gastrointestinal: COMPLAINS OF: Abdominal pain, Black stools, Bloody stools, Nausea, Vomiting Musculoskeletal: DENIES: Joint pain, Muscle aches, Stiffness, Joint Swelling Integumentary: DENIES: Abnormal pigmentation, Nail changes, Pruritus, Rash Hematologic/lymphatic: DENIES: Bruising, Lymphadenopathy Immunologic/allergic: DENIES: Eczema, Urticaria Neurologic: DENIES: Abnormal gait, Headache, Localized weakness, Paresthesias Psychiatric: DENIES: Anxiety, Confusion, Hallucinations Past Family Social History Past Medical History History of pancreatitis Crohn's disease History of inguinal hernia COPD Asthma Depression Gen. anxiety disorder Cirrhosis Past Surgical History Tonsillectomy Partial colectomy secondary to Crohn's disease Reported Medications Reported Meds & Active Scripts Active Miralax Powder (Polyethylene Glycol 3350 Powder) 17 Gm Powd 17 Gm PO DAILY Mix and dissolve one measuring cap-ful (17 grams) in water or juice. Pantoprazole (Pantoprazole Sodium) 40 Mg Tab 40 Mg PO DAILY K-Tab (Potassium Chloride) 20 Meq Tab 1 Tab PO BID Pentasa (Mesalamine) 250 Mg Caper 1,000 Mg PO BID 30 Days Allergies: Coded Allergies: tetanus toxoid, adsorbed (Unverified Allergy, Severe, Nausea/Vomiting, 04/09/17) *MDRO Multi-Drug Resistant Organism (Verified Adverse Reaction, Unknown, 04/09/17) MRSA (arm) 02/10/17 Active Ordered Medications Administered Medications Medications (Trade) Dose Ordered Sig/Vikki Route PRN Reason Start Time Stop Time Status Last Admin Dose Admin Sodium Chloride (NS Flush) 2 ml UNSCH PRN IV FLUSH FLUSH AFTER USING IV ACCESS 04/09/17 19:15 04/10/17 00:53 Sodium Chloride 250 ml @ 15 mls/hr ONCE ONCE IV 04/09/17 21:45 04/10/17 14:24 04/09/17 21:50 Pantoprazole Sodium 80 mg/ Sodium Chloride 100 ml @ 10 mls/hr Q10H IV 04/10/17 00:00 04/10/17 09:42 Ondansetron HCl (Zofran Inj) 4 mg Q6H PRN IVP NAUSEA OR VOMITING 04/09/17 22:15 04/10/17 04:52 Nicotine (Habitrol 21 Mg Patch.24 Hr) 1 patch DAILY T-DERMAL 04/10/17 09:00 04/10/17 09:42 Family History Different forms of colitis and his family including mother and father Social History History of alcohol abuse, currently not drinking alcohol Patient smokes 1 pack per day No illicit drug abuse reported Physical Exam Vital Signs Vital Signs Date Time Temp Pulse Resp B/P (MAP) Pulse Ox O2 Delivery O2 Flow Rate FiO2 04/10/17 08:00 98.7 112 18 139/87 (104) 97 04/10/17 06:41 97.5 105 16 119/82 97 04/10/17 06:19 97.8 97 16 106/80 97 04/10/17 05:46 97.8 107 16 106/80 (89) 97 04/10/17 04:00 97.3 106 16 118/79 (92) 98 04/10/17 04:00 97.3 106 16 118/79 (92) 98 04/10/17 01:00 94 04/10/17 00:00 97.2 92 20 120/82 (95) 99 04/09/17 22:45 97.5 100 16 125/84 (98) 100 04/09/17 22:37 86 18 99 04/09/17 22:33 86 18 112/74 (87) 99 Room Air 04/09/17 21:00 88 18 118/74 (89) 99 Room Air 04/09/17 19:45 18 98 Room Air 04/09/17 19:08 98.8 95 18 128/75 (92) 100 Room Air 04/09/17 18:26 98.8 99 20 113/67 (82) 100 Physical Exam GENERAL: NAD, A&Ox3 HEAD: Normocephalic. NECK: Supple, trachea midline. No lymphadenopathy. EYES: No scleral icterus. No injection or drainage. CARDIOVASCULAR: Regular rate and rhythm without murmurs, gallops, or rubs. RESPIRATORY: Breath sounds equal bilaterally. No accessory muscle use. GASTROINTESTINAL: Abdomen is distended and tender to palpation. Distention appears to be secondary to fluid. MUSCULOSKELETAL: No cyanosis, or edema. SKIN: Warm and dry. NEURO: No focal neurological deficitis. Laboratory Laboratory Tests Test 04/09/17 19:45 04/09/17 21:50 04/09/17 22:00 04/10/17 05:35 White Blood Count 9.5 12.0 Red Blood Count 2.40 2.58 Hemoglobin 7.2 7.8 Hematocrit 22.3 23.8 Mean Corpuscular Volume 93.0 92.0 Mean Corpuscular Hemoglobin 30.2 30.2 Mean Corpuscular Hemoglobin Concent 32.5 32.8 Red Cell Distribution Width 18.4 18.9 Platelet Count 138 179 Mean Platelet Volume 7.5 8.6 Neutrophils (%) (Auto) 71.9 86.0 Lymphocytes (%) (Auto) 15.8 6.8 Monocytes (%) (Auto) 8.2 5.8 Eosinophils (%) (Auto) 3.4 1.0 Basophils (%) (Auto) 0.7 0.4 Neutrophils # (Auto) 6.8 10.4 Lymphocytes # (Auto) 1.5 0.8 Monocytes # (Auto) 0.8 0.7 Eosinophils # (Auto) 0.3 0.1 Basophils # (Auto) 0.1 0.0 CBC Comment DIFF FINAL DIFF FINAL Differential Comment Prothrombin Time 12.9 Prothromb Time International Ratio 1.2 Activated Partial Thromboplast Time 32.3 Blood Urea Nitrogen 9 9 Creatinine 0.74 0.62 Random Glucose 77 104 Total Protein 6.1 5.9 Albumin 2.7 2.6 Calcium Level 8.1 8.3 Alkaline Phosphatase 199 178 Aspartate Amino Transf (AST/SGOT) 36 31 Alanine Aminotransferase (ALT/SGPT) 27 28 Total Bilirubin 0.8 1.1 Sodium Level 142 140 Potassium Level 3.9 4.0 Chloride Level 113 112 Carbon Dioxide Level 20.9 19.5 Anion Gap 8 9 Estimat Glomerular Filtration Rate 112 137 Lipase 158 Urine Color THOMAS Urine Turbidity CLEAR Urine pH 5.5 Urine Specific [place] 1.024 Urine Protein NEG Urine Glucose (UA) NEG Urine Ketones NEG Urine Occult Blood NEG Urine Nitrite NEG Urine Bilirubin NEG Urine Leukocyte Esterase NEG Urine RBC 0-3 Urine WBC 0-2 Urine Squamous Epithelial Cells 0-5 Urine Hyaline Casts 6-9 Urine Mucus MOD Microscopic Urinalysis Comment CULT NOT INDICATED Ammonia 91 Result Diagram: 04/10/17 0535 04/10/17 0535 Caprini VTE Risk Assessment Caprini VTE Risk Assessment: Mod/High Risk (score >= 2) Caprini Risk Assessment Model Point Value = 1 Point Value = 2 Point Value = 3 Point Value = 5 Age 41-60 Minor surgery BMI > 25 kg/m2 Swollen legs Varicose veins or History of unexplained or recurrent spontaneous Oral contraceptives or hormone replacement Sepsis (< 1 month) Serious lung disease, including pneumonia (< 1 month) Abnormal pulmonary function Acute myocardial infarction Congestive heart failure (< 1 month) History of inflammatory bowel disease Medical patient at bed rest Age 61-74 Arthroscopic surgery Major open surgery (> 45 min) Laparoscopic surgery (> 45 min) Malignancy Confined to bed (> 72 hours) Immobilizing plaster cast Central venous access Age >= 75 History of VTE Family history of VTE Factor V Leiden Prothrombin [id number] Lupus anticoagulant Anticardiolipin antibodies Elevated serum homocysteine Heparin-induced thrombocytopenia Other congenital or acquired thrombophilia Stroke (< 1 month) Elective arthroplasty Hip, pelvis, or leg fracture Acute spinal cord injury (< 1 month) Prophylaxis Regimen Total Risk Factor Score Risk Level Prophylaxis Regimen 0-1 Low Early ambulation 2 Moderate Order ONE of the following: *Sequential Compression Device (SCD) *Heparin 5000 units SQ BID 3-4 Higher Order ONE of the following medications: *Heparin 5000 units SQ TID *Enoxaparin/Lovenox 40 mg SQ daily (WT < 150 kg, CrCl > 30 mL/min) *Enoxaparin/Lovenox 30 mg SQ daily (WT < 150 kg, CrCl > 10-29 mL/min) *Enoxaparin/Lovenox 30 mg SQ BID (WT < 150 kg, CrCl > 30 mL/min) AND/OR *Sequential Compression Device (SCD) 5 or more Highest Order ONE of the following medications: *Heparin 5000 units SQ TID (Preferred with Epidurals) *Enoxaparin/Lovenox 40 mg SQ daily (WT < 150 kg, CrCl > 30 mL/min) *Enoxaparin/Lovenox 30 mg SQ daily (WT < 150 kg, CrCl > 10-29 mL/min) *Enoxaparin/Lovenox 30 mg SQ BID (WT < 150 kg, CrCl > 30 mL/min) AND *Sequential Compression Device (SCD) Assessment and Plan Problem List: (1) Tobacco abuse ICD Code: Z72.0 - Tobacco use Status: Acute (2) Ascites due to alcoholic cirrhosis ICD Code: K70.31 - Alcoholic cirrhosis of liver with ascites Status: Acute (3) Upper GI bleed ICD Code: K92.2 - Gastrointestinal hemorrhage, unspecified Status: Acute (4) Anemia ICD Code: D64.9 - Anemia, unspecified Status: Acute Assessment and Plan Assessment and plan 51-year-old male admitted secondary to GI bleed, anemia, symptomatic ascites Acute blood loss anemia Etiology suspected to be GI Nothing by mouth Transfusion of packed red blood cells in process Follow CBC Transfuse again as needed GI bleed History of Crohn's disease Cirrhosis Symptomatic ascites Client Solutions Director consulted Nothing by mouth Etiology may be related to ascites and cirrhosis Paracentesis likely needed after patient stabilizes Crohn's disease may be contributory Patient has a history of colectomy COPD Asthma No exacerbation Follow clinically Depression Gen. anxiety disorder No change to baseline treatments DVT prophylaxis SCDs Physician Certification 2 Midnight Certification Type: Admission for Inpatient Services Order for Inpatient Services The services are ordered in accordance with Medicare regulations or non- Medicare payer requirements, as applicable. In the case of services not specified as inpatient-only, they are appropriately provided as inpatient services in accordance with the 2-midnight benchmark. Estimated LOS (days): 3 days is the estimated time the patient will need to remain in the hospital, assuming treatment plan goals are met and no additional complications. Post-Hospital Plan: Home Jus Cazares MD Apr 10, 2017 10:00
[2017-04-10] MEDS: HYDROmorphone HCL PF 1 MG/ML VIAL IV PUSH PRN ×3 (11:01→23:37)
--- NOTE | 2017-04-10 16:42 | PD.CONS ---
HPI History of Present Illness This is a 51 year old male who presented to the ED with c/o abdominal pain that has been present x 2 weeks. Reports abdominal pain is diffuse. Reports intermittent episodes of nausea and vomiting. Decreased appetite. States he has testicular swelling and lower extremity swelling. Patient also reports bright red blood per rectum. He does have a history of Colonoscopy and EGD, but is unsure of the dates of these. Does report history of Crohn's disease. Patient does have a history of cirrhosis secondary to alcohol use. Denies current alcohol use. HH at admission was 7.2/22.3, he is s/p PRBC transfusion x 2 on 04/10. Patient was found to have Hemoccult positive stools. (Karoline Carrera) PFSH Past Medical History History of pancreatitis Crohn's disease History of inguinal hernia COPD Asthma Depression Gen. anxiety disorder Cirrhosis Past Surgical History Tonsillectomy Partial colectomy secondary to Crohn's disease (Karoline Carrera) Coded Allergies: tetanus toxoid, adsorbed (Unverified Allergy, Severe, Nausea/Vomiting, 04/09/17) Medications Current Medications Medications (Trade) Dose Ordered Sig/Vikki Route PRN Reason Start Time Stop Time Status Last Admin Dose Admin Sodium Chloride (NS Flush) 2 ml UNSCH PRN IV FLUSH FLUSH AFTER USING IV ACCESS 04/09/17 19:15 04/10/17 00:53 Folic Acid (Folate) 1 mg DAILY PO 04/10/17 09:00 04/15/17 08:59 Thiamine HCl (Vitamin B1) 100 mg DAILY PO 04/10/17 09:00 Multivitamins/ Minerals Therapeutic (Theragran M Tab) 1 tab DAILY PO 04/10/17 09:00 04/15/17 08:59 Flumazenil (Romazicon Inj) 0.2 mg Q1M PRN IV PUSH SEE LABEL COMMENTS 04/09/17 22:15 Lorazepam (Ativan) 1 mg Q4H PRN PO CIWA 8 - 10 04/09/17 22:15 Lorazepam (Ativan Inj) 1 mg Q4H PRN IV PUSH CIWA 8 - 10 04/09/17 22:15 Lorazepam (Ativan) 2 mg Q2H PRN PO CIWA 11-14 04/09/17 22:15 Lorazepam (Ativan Inj) 2 mg Q2H PRN IV PUSH CIWA 11-14 04/09/17 22:15 Lorazepam (Ativan Inj) 2 mg Q1H PRN IV PUSH CIWA 15-20 04/09/17 22:15 Lorazepam (Ativan Inj) 2 mg Q15M PRN IV PUSH CIWA > 20 04/09/17 22:15 Haloperidol Lactate (Haldol Inj) 2 mg Q15M PRN IM SEE LABEL COMMENTS 04/09/17 22:15 Pantoprazole Sodium 80 mg/ Sodium Chloride 100 ml @ 10 mls/hr Q10H IV 04/10/17 00:00 04/10/17 09:42 Sodium Chloride (NS Flush) 2 ml UNSCH PRN IV FLUSH FLUSH AFTER USING IV ACCESS 04/09/17 22:15 Sodium Chloride (NS Flush) 2 ml BID IV FLUSH 04/10/17 09:00 Ondansetron HCl (Zofran Inj) 4 mg Q6H PRN IVP NAUSEA OR VOMITING 04/09/17 22:15 04/10/17 14:12 Acetaminophen (Tylenol) 650 mg Q6H PRN PO FEVER 04/09/17 22:15 Future Hold Senna/Docusate Sodium (Liat-Colace) 1 tab BID PO 04/10/17 09:00 Magnesium Hydroxide (Milk Of Magnesia Liq) 30 ml Q12H PRN PO MILD - MODERATE CONSTIPATION 04/09/17 22:15 Sennosides (Senokot) 17.2 mg Q12H PRN PO MODERATE - SEVERE CONSTIPATION 04/09/17 22:15 Bisacodyl (Dulcolax Supp) 10 mg DAILY PRN RECTAL SEVERE CONSITIPATION 04/09/17 22:15 Lactulose (Lactulose Liq) 30 ml DAILY PRN PO SEVERE CONSITIPATION 04/09/17 22:15 Hydromorphone HCl (Dilaudid Pf Inj) 0.5 mg Q4H PRN IV PUSH Pain 3 to 5 04/10/17 09:00 Hydromorphone HCl (Dilaudid Pf Inj) 1 mg Q4H PRN IV PUSH Pain 6 to 10 04/10/17 09:00 04/10/17 11:01 Mesalamine (Pentasa Sr) 1,000 mg BID PO 04/10/17 09:00 Nicotine (Habitrol 21 Mg Patch.24 Hr) 1 patch DAILY T-DERMAL 04/10/17 09:00 04/10/17 09:42 Miscellaneous Information 1 DAILY T-DERMAL 04/11/17 09:00 Family History History of colitis in family Social History ETOH, History of alcohol abuse, denies current use Tobacco, 1 PPD Illicit Drugs, denies (Karoline Carrera) Review of Systems Constitutional: COMPLAINS OF: Change in appetite, DENIES: Diaphoretic episodes , Fatigue, Fever, Weight gain, Weight loss, Chills, Dizziness, Night Sweats Endocrine: DENIES: Polydipsia, Polyuria Eyes: DENIES: Blurred vision, Photosensitivity, Double Vision Ears, nose, mouth, throat: DENIES: Hearing loss, Vertigo, Oral lesions, Throat pain, Hoarseness Respiratory: DENIES: Cough, Wheezing, Hemoptysis, Sputum production, Shortness of breath Cardiovascular: DENIES: Chest pain, Palpitations, Syncope, Lower Extremity Edema, Orthopnea, Claudication Gastrointestinal: COMPLAINS OF: Abdominal pain, Bloody stools, Nausea, Vomiting , Swelling of Abdomen, DENIES: Black stools, Constipation, Diarrhea, Difficulty Swallowing, Anorexia, Odynophagia, Heartburn, Hematemesis Genitourinary: DENIES: Urinary frequency, Urinary incontinence, Urgency, Hematuria, Dysuria, Nocturia Musculoskeletal: DENIES: Joint pain, Muscle aches, Stiffness, Joint Swelling, Back pain, Neck pain Integumentary: DENIES: Abnormal pigmentation, Nail changes, Pruritus, Rash, Jaundice Hematologic/lymphatic: DENIES: Bruising, Lymphadenopathy Immunologic/allergic: DENIES: Eczema, Urticaria Neurologic: DENIES: Abnormal gait, Headache, Localized weakness, Paresthesias Psychiatric: DENIES: Anxiety, Confusion, Mood changes, Depression, Agitation, Suicidal Ideation (Karoline Carrera) GI Exam Vitals I&O Vital Signs Date Time Temp Pulse Resp B/P (MAP) Pulse Ox O2 Delivery O2 Flow Rate FiO2 04/10/17 15:30 100.9 115 18 124/80 98 04/10/17 11:31 18 04/10/17 10:40 99.6 114 18 119/75 96 04/10/17 08:00 98.7 112 18 139/87 (104) 97 04/10/17 08:00 98.5 100 18 126/54 (78) 97 04/10/17 08:00 98.7 112 18 139/87 (104) 97 04/10/17 08:00 107 04/10/17 06:41 97.5 105 16 119/82 97 04/10/17 06:19 97.8 97 16 106/80 97 04/10/17 05:46 97.8 107 16 106/80 (89) 97 04/10/17 04:00 97.3 106 16 118/79 (92) 98 04/10/17 04:00 97.3 106 16 118/79 (92) 98 04/10/17 01:00 94 04/10/17 00:00 97.2 92 20 120/82 (95) 99 04/09/17 22:45 97.5 100 16 125/84 (98) 100 04/09/17 22:37 86 18 99 04/09/17 22:33 86 18 112/74 (87) 99 Room Air 04/09/17 21:00 88 18 118/74 (89) 99 Room Air 04/09/17 19:45 18 98 Room Air 04/09/17 19:08 98.8 95 18 128/75 (92) 100 Room Air 04/09/17 18:26 98.8 99 20 113/67 (82) 100 I/O 04/09/17 04/09/17 04/09/17 04/10/17 04/10/17 04/10/17 06:59 14:59 22:59 06:59 14:59 22:59 Intake Total 1050 ml 591 ml 415 ml 415 ml Output Total 800 ml 200 ml Balance 1050 ml -209 ml 215 ml 415 ml Intake Oral 460 ml IV Total 1050 ml 126 ml Packed Cells 400 ml 400 ml Blood Product IV Normal Saline Flush 5 ml 15 ml 15 ml Output Urine Total 300 ml Emesis 500 ml 200 ml # Voids 1 # Bowel Movements 0 1 Laboratory Test 04/09/17 19:45 04/09/17 21:50 04/09/17 22:00 04/10/17 05:35 White Blood Count 9.5 TH/MM3 12.0 TH/MM3 Red Blood Count 2.40 MIL/MM3 2.58 MIL/MM3 Hemoglobin 7.2 GM/DL 7.8 GM/DL Hematocrit 22.3 % 23.8 % Mean Corpuscular Volume 93.0 FL 92.0 FL Mean Corpuscular Hemoglobin 30.2 PG 30.2 PG Mean Corpuscular Hemoglobin Concent 32.5 % 32.8 % Red Cell Distribution Width 18.4 % 18.9 % Platelet Count 138 TH/MM3 179 TH/MM3 Mean Platelet Volume 7.5 FL 8.6 FL Neutrophils (%) (Auto) 71.9 % 86.0 % Lymphocytes (%) (Auto) 15.8 % 6.8 % Monocytes (%) (Auto) 8.2 % 5.8 % Eosinophils (%) (Auto) 3.4 % 1.0 % Basophils (%) (Auto) 0.7 % 0.4 % Neutrophils # (Auto) 6.8 TH/MM3 10.4 TH/MM3 Lymphocytes # (Auto) 1.5 TH/MM3 0.8 TH/MM3 Monocytes # (Auto) 0.8 TH/MM3 0.7 TH/MM3 Eosinophils # (Auto) 0.3 TH/MM3 0.1 TH/MM3 Basophils # (Auto) 0.1 TH/MM3 0.0 TH/MM3 CBC Comment DIFF FINAL DIFF FINAL Differential Comment Prothrombin Time 12.9 SEC Prothromb Time International Ratio 1.2 RATIO Activated Partial Thromboplast Time 32.3 SEC Blood Urea Nitrogen 9 MG/DL 9 MG/DL Creatinine 0.74 MG/DL 0.62 MG/DL Random Glucose 77 MG/DL 104 MG/DL Total Protein 6.1 GM/DL 5.9 GM/DL Albumin 2.7 GM/DL 2.6 GM/DL Calcium Level 8.1 MG/DL 8.3 MG/DL Alkaline Phosphatase 199 U/L 178 U/L Aspartate Amino Transf (AST/SGOT) 36 U/L 31 U/L Alanine Aminotransferase (ALT/SGPT) 27 U/L 28 U/L Total Bilirubin 0.8 MG/DL 1.1 MG/DL Sodium Level 142 MEQ/L 140 MEQ/L Potassium Level 3.9 MEQ/L 4.0 MEQ/L Chloride Level 113 MEQ/L 112 MEQ/L Carbon Dioxide Level 20.9 MEQ/L 19.5 MEQ/L Anion Gap 8 MEQ/L 9 MEQ/L Estimat Glomerular Filtration Rate 112 ML/MIN 137 ML/MIN Lipase 158 U/L Urine Color THOMAS Urine Turbidity CLEAR Urine pH 5.5 Urine Specific [place] 1.024 Urine Protein NEG mg/dL Urine Glucose (UA) NEG mg/dL Urine Ketones NEG mg/dL Urine Occult Blood NEG Urine Nitrite NEG Urine Bilirubin NEG Urine Leukocyte Esterase NEG Urine RBC 0-3 /hpf Urine WBC 0-2 /hpf Urine Squamous Epithelial Cells 0-5 /hpf Urine Hyaline Casts 6-9 /lpf Urine Mucus MOD /lpf Microscopic Urinalysis Comment CULT NOT INDICATED Ammonia 91 MCMOL/L Physical Examination HEENT: Normocephalic. NECK: Neck is supple CHEST: CTA CARDIAC: RRR with no murmur gallop or rubs. ABDOMEN: Distended and diffusely tender to palpation EXTREMITIES: No clubbing, cyanosis SKIN: Normal; no rash; no jaundice. DIRECTOR OF MEDIA: No focal deficits; alert and oriented x 3 (Karoline Carrera) Assessment and Plan Plan ASSESSMENT: - Anemia, Hemoccult positive stools. HH 7.2/22.3 (04/09) on admit. HH 7.8/23.8 ( 04/10). No recent HH noted. Patient is s/p 2 PRBC transfusions. History of Crohn's disease and history of colectomy. - Ascites, history of alcohol use, but patient denies any currently. History of cirrhosis. AST, ALT normal. ALK PHOS 178. Ammonia 91. Total protein, 6.1. Albumin 2.6. On Lactulose - COPD, asthma, depression, anxiety disorder, per attending. PLAN: - Keep NPO - Consider diagnostic paracentesis - Consider colonoscopy for evaluation of anemia and Hemoccult positive stools - Notify GI of active bleeding. - Monitor HH, transfuse as necessary - Monitor labs - Continue Lactulose - Supportive care - Further recommendations to follow based on results of above Patient seen and examined by Dr. Whitaker and this note is written on his behalf. (Karoline Carrera) Plan Patient was seen and examined, agree with the above note, patient is noncompliant with medication, he was seen last month [address] MCCAULEY A was a steroid taper and he was started on Pentasa, he did not follow up in the clinic he ran out of prednisone and started having abdominal pain, most likely another exacerbation or none respond to Pentasa, I will start prednisone 40 mg daily, this will be taper off slowly, patient may need biological treatment for his Crohn disease Patient has situs most likely related to cirrhosis we will do paracentesis, and surgical some consult because the patient has inguinal hernia with enlarged scrotum with the fluid is filling the scrotum (Carol Whitaker MD) Karoline Carrera Apr 10, 2017 16:42 Carol Whitaker MD Apr 10, 2017 18:21
[2017-04-10 19:05] LABS: BASOPHIL # 0.1 TH/MM3 (0-0.2); BASOPHIL % 0.7 % (0.0-2.0); EOSINOPHIL # 0.2 TH/MM3 (0-0.4); HEMATOCRIT 28.3 % (39.0-51.0); HEMO FLAGS DIFF FINAL; LYMPH % 7.1 % (9.0-44.0); LYMPHOCYTE # 0.7 TH/MM3 (1.0-4.8); MEAN CELL VOLUME 88.9 FL (80.0-100.0); MEAN CORPUSCULAR HEMOGLOBIN 30.2 PG (27.0-34.0); MEAN CORPUSCULAR HGB CONC 33.9 % (32.0-36.0); MONO % 7.5 % (0.0-8.0); NEUT % 82.7 % (16.0-70.0); PLATELET COUNT 141 TH/MM3 (150-450); RED BLOOD COUNT 3.19 MIL/MM3 (4.50-5.90); RED CELL DISTRIBUTION WIDTH 17.7 % (11.6-17.2); WHITE BLOOD COUNT 9.7 TH/MM3 (4.0-11.0)
[2017-04-10 19:19] LABS: CHLORIDE 110 MEQ/L (98-107); POTASSIUM 3.6 MEQ/L (3.5-5.1); SODIUM (NA) 139 MEQ/L (136-145)
[2017-04-10 19:22] LABS: ANION GAP 10 MEQ/L (5-15); BICARBONATE 18.6 MEQ/L (21.0-32.0); BLOOD UREA NITROGEN 13 MG/DL (7-18)
[2017-04-10 19:24] LABS: INTERNATIONAL NORMALIZED RATIO 1.4 RATIO; PROTHROMBIN TIME - PATIENT 15.2 SEC (9.8-11.6)
[2017-04-10 19:25] LABS: ALT (GPT) 26 U/L (12-78); AST (GOT) 30 U/L (15-37); GLOMERULAR FILTRATION RATE 123 ML/MIN (>89)
--- NOTE | 2017-04-10 19:32 | EKG ---
Date Performed: 04/09/2017 Time Performed: 19:31:16 PTAGE: 51 years EKG: Sinus rhythm NORMAL ECG PREVIOUS TRACING : 01/04/2017 19.41 Compared to prior tracing no significant change DOCTOR: Benjamin Fan Interpretating Date/Time 04/10/2017 19:30:56
[2017-04-10 19:46] LABS: ALKALINE PHOSPHATASE 156 U/L (45-117); TOTAL BILIRUBIN ADULT 3.5 MG/DL (0.2-1.0)
[2017-04-10] MEDS: predniSONE 20 MG TAB PO SCH (20:52)
[2017-04-10] MEDS: PIPERACIL-TAZO 3.375 GM PREMIX 50 ML IV SCH (21:48)
[2017-04-11] VITALS (8 sets, daily range): BP systolic 105–132; BP diastolic 64–79; PULSE 79–113; RESP 17–20; TEMP 97.1–98.9; O2SAT 95–100
[2017-04-11] MEDS: PIPERACIL-TAZO 3.375 GM PREMIX 50 ML IV SCH ×3 (04:08→20:26)
[2017-04-11] MEDS: SODIUM CHLORIDE 0.9% FLUSH 10 ML FLUSH IV FLUSH PRN ×2 (04:09→22:03)
[2017-04-11] MEDS: HYDROmorphone HCL PF 1 MG/ML VIAL IV PUSH PRN ×4 (04:28→22:02)
[2017-04-11] MEDS: PANTOPRAZOLE INJ 80 MG in SODIUM CHLORIDE 0.9% INJ 100 ML IV SCH ×2 (06:22→19:08)
[2017-04-11 07:39] LABS: APTT (PATIENT) 34.9 SEC (24.3-30.1); INTERNATIONAL NORMALIZED RATIO 1.4 RATIO; PROTHROMBIN TIME - PATIENT 16.1 SEC (9.8-11.6)
--- NOTE | 2017-04-11 08:00 | MB ---
cc: SARABJIT TENA M.D. DATE OF CONSULTATION 04/11/2017 REASON FOR CONSULTATION Inguinal hernia HISTORY This is a 51-year-old gentleman who was admitted to the hospital with an upper GI bleed secondary to probable alcoholic cirrhosis with esophageal varices. He is found to have tense ascites and a growing testicular swelling secondary to his alcoholic cirrhosis. He tells me he has had a inguinal hernia for 15 years that does not really bother him. The swelling in his scrotum and around his penis is more bothersome. He is being worked up for a GI bleed and being treated for MRSA wound infection in his upper extremity. Surgery was consulted for consideration of repair of the inguinal hernia. PAST MEDICAL HISTORY Significant for: 1. Alcoholic cirrhosis 2. Liver dysfunction 3. He has Crohn's disease, had a colon resection in the past. 4. He has had some bilateral knee problems. 5. He does smoke. 6. He drinks a fair amount and has legal problems because of the amount of drinking he does. 7. He had MRSA treated in the passed to his arm and is presently being treated for MRSA and is on isolation. 8. He has had some neurologic problems from a head injury. 9. He has some COPD, asthma and GI problems. 10. He has a hiatal hernia. 11. Pancreatitis 12. Thrombocytopenia 13. Reflux 14. History of depression. PAST SURGICAL HISTORY He has had a colon resection. ALLERGIES TO MEDICATIONS TETANUS TOXOID MEDICATIONS He has taken an ambulatory 1. Pentasa 2. Protonix 3. Potassium Medication list is reviewed and found here. PHYSICAL EXAM On physical exam, he is an emaciated, chronically ill appearing gentleman who looks much older than his stated age of 51. He is slightly jaundiced. He very thin and cachectic. CHEST: Clear. HEART: Slightly tachycardiac. ABDOMEN: Tense ascites. Surgical scar midline. He has had a right inguinal hernia and a swollen scrotum and swollen penis. hernia has fluid no bowel EXTREMITIES: He has edema in his lower extremities. He has had a bandage on his upper extremity where his wound is being treated for MRSA. LABORATORY DATA When he came in, his white count was 12, it is now 9.7. His H&H was 7 and 22. He has been getting some blood. His coags are pending today. Yesterday his INR was 1.4. Chemistry shows a calcium of 8, BUN of 13, creatinine 0.6, total bilirubin 3.5, alkaline phos 156. His albumin is 2.5. His ammonia levels is 91. His serology at least in 2014 was negative for hepatitis. IMAGING STUDIES CT scan of the abdomen shows tense ascites with fluid in the hernia. He has had paraesophageal varices and a thickened esophagus, some inflammatory nodes in the small bowel. He has got a renal stone as well. Upper GI done in December shows a hiatal hernia and some findings suggestive of possible low grade obstructive process may be from the anastomoses from his previous colon resection. He has a CT scan and the hernia field with fluid as well. ASSESSMENT A 51-year-old gentleman who is alcoholic cirrhotic with tense ascites, esophageal varices thrombocytopenia, elevated ammonia level, elevated total bilirubin treated for MRSA with bilateral lower extremity edema. He obviously has a hernia electively in a healthy patient we would repair, but he has so many underlying medical issues it would be very dangerous to proceed with hernia repair. He is not having any symptoms from his inguinal hernia. He has had it for 15 years. I had a discussion with him about wearing a truss. The medical team is working on his tense ascites and his MRSA and his upper GI bleed. It think these need to be addressed prior to any consideration of surgical intervention. In the long run, I do not think he would be a surgical candidate in the future as well. MD ZEYNEP Garcia/NATALIE /7:22 AM /7:45 AM SURESH
[2017-04-11] MEDS: REMOVE OLD PATCH T-DERMAL SCH (09:00)
--- NOTE | 2017-04-11 09:57 | HHI.PR ---
Subjective Remarks Improvement in abdominal pain today. Plan for diagnostic paracentesis today. No recurrence of fevers and white blood cell has decreased. Objective Vital Signs Date Time Temp Pulse Resp B/P (MAP) Pulse Ox O2 Delivery O2 Flow Rate FiO2 04/11/17 08:00 97.6 88 17 106/70 (82) 100 04/11/17 04:00 97.1 89 17 116/75 (89) 95 04/11/17 00:00 98.9 113 18 116/67 (83) 95 04/10/17 20:05 99.2 119 18 115/69 (84) 97 04/10/17 20:00 120 04/10/17 16:00 98.4 100 16 122/60 (80) 97 04/10/17 15:30 100.9 115 18 124/80 98 04/10/17 12:00 98.5 100 18 126/54 (78) 97 04/10/17 11:31 18 04/10/17 10:40 99.6 114 18 119/75 96 I/O 04/10/17 04/10/17 04/10/17 04/11/17 04/11/17 04/11/17 07:00 15:00 23:00 07:00 15:00 23:00 Intake Total 591 ml 415 ml 1265 ml 783 ml Output Total 800 ml 200 ml 300 ml 300 ml Balance -209 ml 215 ml 965 ml 483 ml Intake Oral 460 ml 850 ml 420 ml IV Total 126 ml 363 ml Packed Cells 400 ml 400 ml Blood Product IV Normal Saline Flush 5 ml 15 ml 15 ml Output Urine Total 300 ml 300 ml Stool Total 300 ml Emesis 500 ml 200 ml # Voids 1 3 # Bowel Movements 0 1 Result Diagram: 04/10/17185504/10/171855 Objective Remarks GENERAL: NAD, A&Ox3 HEAD: Normocephalic. NECK: Supple, trachea midline. No lymphadenopathy. EYES: No scleral icterus. No injection or drainage. CARDIOVASCULAR: Regular rate and rhythm without murmurs, gallops, or rubs. RESPIRATORY: Breath sounds equal bilaterally. No accessory muscle use. GASTROINTESTINAL: Abdomen soft, non-tender. Abdominal distention. MUSCULOSKELETAL: No cyanosis, or edema. SKIN: Warm and dry. NEURO: No focal neurological deficitis. A/P Problem List: (1) Ascites due to alcoholic cirrhosis ICD Code: K70.31 - Alcoholic cirrhosis of liver with ascites Status: Acute (2) Upper GI bleed ICD Code: K92.2 - Gastrointestinal hemorrhage, unspecified Status: Acute (3) Tobacco abuse ICD Code: Z72.0 - Tobacco use Status: Acute (4) Anemia ICD Code: D64.9 - Anemia, unspecified Status: Acute Assessment and Plan Assessment and plan 51-year-old male admitted secondary to GI bleed, anemia, symptomatic ascites. Zosyn started yesterday afternoon secondary to fever. No recurrence of fever at this point, leukocytosis is also improving today. 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 anxiety disorder No change to baseline treatments DVT prophylaxis SCDs Jus Cazares MD Apr 11, 2017 09:57
[2017-04-11] MEDS: SODIUM CHLORIDE 0.9% FLUSH 10 ML FLUSH IV FLUSH SCH ×2 (10:27→20:27)
[2017-04-11] MEDS: MULTIVITAMINS/MINERALS THERAPEUTIC TAB PO SCH (10:28)
[2017-04-11] MEDS: DOCUSATE SODIUM 50 MG/SENNA 8.6 MG TAB PO SCH ×2 (10:28→20:27)
[2017-04-11] MEDS: FOLIC ACID 1 MG TAB PO SCH (10:28)
[2017-04-11] MEDS: predniSONE 20 MG TAB PO SCH ×2 (10:28→20:28)
[2017-04-11] MEDS: MESALAMINE 250 MG CAP PO SCH ×2 (10:28→20:27)
[2017-04-11] MEDS: THIAMINE HCL 100 MG TAB PO SCH (10:28)
[2017-04-11] MEDS: NICOTINE 21 MG/24 HR PATCH T-DERMAL SCH (10:29)
--- NOTE | 2017-04-11 15:49 | HHI.GIFU ---
Subjective Remarks Sitting up in bed eating. States he is tolerating diet. Has paracentesis scheduled later this afternoon. (Karoline Carrera) Objective Vitals I&O Vital Signs Date Time Temp Pulse Resp B/P (MAP) Pulse Ox O2 Delivery O2 Flow Rate FiO2 04/11/17 12:00 97.5 79 18 110/72 (85) 99 04/11/17 08:00 97.6 88 17 106/70 (82) 100 04/11/17 08:00 91 04/11/17 04:00 97.1 89 17 116/75 (89) 95 04/11/17 00:00 98.9 113 18 116/67 (83) 95 04/10/17 20:05 99.2 119 18 115/69 (84) 97 04/10/17 20:00 120 04/10/17 16:00 98.4 100 16 122/60 (80) 97 I/O 04/10/17 04/10/17 04/10/17 04/11/17 04/11/17 04/11/17 07:00 15:00 23:00 07:00 15:00 23:00 Intake Total 591 ml 415 ml 1265 ml 783 ml Output Total 800 ml 200 ml 300 ml 300 ml Balance -209 ml 215 ml 965 ml 483 ml Intake Oral 460 ml 850 ml 420 ml IV Total 126 ml 363 ml Packed Cells 400 ml 400 ml Blood Product IV Normal Saline Flush 5 ml 15 ml 15 ml Output Urine Total 300 ml 300 ml Stool Total 300 ml Emesis 500 ml 200 ml # Voids 1 3 # Bowel Movements 0 1 Laboratory Laboratory Tests Test 04/10/17 18:56 04/11/17 05:40 White Blood Count 9.7 Red Blood Count 3.19 Hemoglobin 9.6 Hematocrit 28.3 Mean Corpuscular Volume 88.9 Mean Corpuscular Hemoglobin 30.2 Mean Corpuscular Hemoglobin Concent 33.9 Red Cell Distribution Width 17.7 Platelet Count 141 Mean Platelet Volume 7.6 Neutrophils (%) (Auto) 82.7 Lymphocytes (%) (Auto) 7.1 Monocytes (%) (Auto) 7.5 Eosinophils (%) (Auto) 2.0 Basophils (%) (Auto) 0.7 Neutrophils # (Auto) 8.0 Lymphocytes # (Auto) 0.7 Monocytes # (Auto) 0.7 Eosinophils # (Auto) 0.2 Basophils # (Auto) 0.1 CBC Comment DIFF FINAL Differential Comment Prothrombin Time 15.2 16.1 Prothromb Time International Ratio 1.4 1.4 Blood Urea Nitrogen 13 Creatinine 0.68 Random Glucose 104 Total Protein 5.5 Albumin 2.5 Calcium Level 8.0 Alkaline Phosphatase 156 Aspartate Amino Transf (AST/SGOT) 30 Alanine Aminotransferase (ALT/SGPT) 26 Total Bilirubin 3.5 Sodium Level 139 Potassium Level 3.6 Chloride Level 110 Carbon Dioxide Level 18.6 Anion Gap 10 Estimat Glomerular Filtration Rate 123 Activated Partial Thromboplast Time 34.9 Physical Exam HEENT: Normocephalic; atraumatic; no jaundice. NECK: Neck is supple. CHEST: CTA CARDIAC: RRR with no murmur gallop or rubs. ABDOMEN: Distended with diffuse TTP EXTREMITIES: No clubbing, cyanosis, or edema. SKIN: Normal; no rash; no jaundice. 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 HH 7.2/22.3 (04/09) on admit. HH 7.8/23.8 ( 04/10). No recent HH noted. Patient is s/p 2 PRBC transfusions. History of Crohn's disease and history of colectomy. Noncompliant with medications. Patient of Dr. Pino. Last seen in GI clinic last month and started on prednisone and Pentasa. He did not followup. - Ascites, history of alcohol use, but patient denies any currently. History of cirrhosis. AST, ALT normal. ALK PHOS 178. Ammonia 91. Total protein, 6.1. Albumin 2.6. On Lactulose - Inguinal hernia, with associated enlarged scrotum. Surgical consulted and do not recommend surgical intervention due to his medical conditions. - COPD, asthma, depression, anxiety disorder, per attending. 04/11/17--No new complaints. Paracentesis planned this afternoon. No recent CBC/ CMP to review today. PLAN: - [place] - Paracentesis today - Consider colonoscopy for evaluation of anemia and Hemoccult positive stools - Notify GI of active bleeding. - Monitor HH, transfuse as necessary - Monitor labs - CBC, CMP - Continue Lactulose - Continue Prednisone - Consider biological treatment for Crohn's - Supportive care - Further recommendations to follow based on results of above Patient seen and examined by Dr. Whitaker and this note is written on his behalf. Patient was seen and examined, agree with the above note, patient is noncompliant with medication, he was seen last month [address] MCCAULEY A was a steroid taper and he was started on Pentasa, he did not follow up in the clinic he ran out of prednisone and started having abdominal pain, most likely another exacerbation or none respond to Pentasa, I will start prednisone 40 mg daily, this will be taper off slowly, patient may need biological treatment for his Crohn disease Patient has situs most likely related to cirrhosis we will do paracentesis, and surgical some consult because the patient has inguinal hernia with enlarged scrotum with the fluid is filling the scrotum (Karoline Carrera) Plan 04/11/2017 patient was seen and examined, agree with above note, patient will get paracentesis today, no fever today continue current management, he has normal bowel movement no bleeding (Carol Whitaker MD) Karoline Carrera Apr 11, 2017 15:49 Carol Whitaker MD Apr 11, 2017 17:53
--- NOTE | 2017-04-11 16:51 | PD.RAD ---
Post US Procedure Prog Note Pre Procedure Diagnosis: (1) Ascites due to alcoholic cirrhosis Post Procedure Diagnosis: (1) Ascites due to alcoholic cirrhosis Procedure Date: Apr 11, 2017 Supervising Radiologist: Oc Fletcher Proceduralist/Assist: My Pisano RDMS Estimated blood loss: none Anesthesia: Local Plan of Activity Patient to Unit: Nursing Unit Patient Condition: Fair See PACS Report for procedural detail/treatment Drainage Procedure Procedure 1 Imaging Guidance: Ultrasound Procedure Type: Paracentesis Norwegian: 6 Drainage: Suction Fluid Description: Clear, Yellow Oc Fletcher MD Apr 11, 2017 16:51
[2017-04-11] MEDS ORDERED: LIDOCAINE HCL 1% 30 ML VIAL SQ ONE (17:27)
[2017-04-11] MEDS: ONDANSETRON HCL 4 MG/2 ML VIAL IVP PRN (17:40)
--- NOTE | 2017-04-11 18:48 | RADRPT ---
EXAM DATE/TIME: 04/11/2017 07:42 [facility] COMPARISON: No previous studies available for comparison. INDICATIONS : Ascites. MEDICAL HISTORY : Pancreatitis. Hernia, hiatal. Gastroesophageal reflux disease. COPD. Asthma. Crohns. ETOH. MRSA. SURGICAL HISTORY : Tonsillectomy. Colon resection. ENCOUNTER: Initial ACUITY: 1 month PAIN SCORE: 2/10 LOCATION: Abdomen. FLUID: Total volume of 2800 cc of clear, yellow fluid was removed. Fluid was sent to lab for ordered studies. TECHNIQUE: 1. Ultrasound guidance for abdominal paracentesis. 2. Paracentesis. The risks, benefits, and alternatives to ultrasound guided paracentesis were explained to the patient in detail including the risk of bleeding and infection. Written and verbal informed consent was obt ained. With the patient on the ultrasound table, ultrasound imaging was used to select the most appropriate approach for paracentesis. Overlying skin was prepped and draped in the usual sterile fashion and wi th a local anesthetic, a dermatotomy was made with an 11 blade scalpel. A 6 Syriac [id number] ca theter was introduced into the peritoneal cavity and fluid was collected. The patient tolerated the procedure well and left the ultrasound suite in stable condition. CONCLUSION: Uncomplicated ultrasound guided paracentesis. Oc Fletcher MD on April 11, 2017 at 18:46 Board Certified Radiologist. This report was verified electronically.
[2017-04-11 19:48] LABS: PERITONEAL HISTIOCYTES 10 %; PERITONEAL LYMPHS 6 %; PERITONEAL MESOTHELIAL 5 %; PERITONEAL POLYS(SEGS) 79 %; PERITONEAL WBC 334 /MM3 (0-10)
[2017-04-12] VITALS: BP 108/65; PULSE 84; RESP 20; TEMP 97.1; O2SAT 97
[2017-04-12] MEDS: HYDROmorphone HCL PF 1 MG/ML VIAL IV PUSH PRN ×4 (03:39→22:12)
[2017-04-12] MEDS: PIPERACIL-TAZO 3.375 GM PREMIX 50 ML IV SCH (03:40)
[2017-04-12] MEDS: SODIUM CHLORIDE 0.9% FLUSH 10 ML FLUSH IV FLUSH PRN ×3 (03:40→22:12)
[2017-04-12 04:00] VITALS: BP 109/72; PULSE 92; RESP 20; TEMP 97.1; O2SAT 97
[2017-04-12] MEDS: PANTOPRAZOLE INJ 80 MG in SODIUM CHLORIDE 0.9% INJ 100 ML IV SCH (05:01)
[2017-04-12 06:53] LABS: AUTOMATED NEUTROPHIL # 10.3 TH/MM3 (1.8-7.7); BASOPHIL % 0.1 % (0.0-2.0); EOSINOPHIL % 0.3 % (0.0-4.0); HEMATOCRIT 24.4 % (39.0-51.0); LYMPH % 6.2 % (9.0-44.0); LYMPHOCYTE # 0.7 TH/MM3 (1.0-4.8); MEAN CELL VOLUME 89.2 FL (80.0-100.0); MEAN CORPUSCULAR HEMOGLOBIN 29.7 PG (27.0-34.0); MEAN CORPUSCULAR HGB CONC 33.3 % (32.0-36.0); MONO % 7.9 % (0.0-8.0); NEUT % 85.5 % (16.0-70.0); PLATELET COUNT 143 TH/MM3 (150-450); RED BLOOD COUNT 2.73 MIL/MM3 (4.50-5.90); RED CELL DISTRIBUTION WIDTH 17.6 % (11.6-17.2); WHITE BLOOD COUNT 11.9 TH/MM3 (4.0-11.0)
[2017-04-12 06:56] LABS: HEMO FLAGS DIFF FINAL
[2017-04-12 07:04] LABS: CHLORIDE 110 MEQ/L (98-107); POTASSIUM 3.1 MEQ/L (3.5-5.1); SODIUM (NA) 139 MEQ/L (136-145)
[2017-04-12 07:05] LABS: APTT (PATIENT) 32.5 SEC (24.3-30.1); INTERNATIONAL NORMALIZED RATIO 1.4 RATIO; PROTHROMBIN TIME - PATIENT 15.5 SEC (9.8-11.6)
[2017-04-12 07:08] LABS: ANION GAP 9 MEQ/L (5-15); BICARBONATE 20.3 MEQ/L (21.0-32.0); BLOOD UREA NITROGEN 11 MG/DL (7-18)
[2017-04-12 07:11] LABS: ALT (GPT) 23 U/L (12-78); AST (GOT) 19 U/L (15-37); GLOMERULAR FILTRATION RATE 132 ML/MIN (>89)
[2017-04-12 07:15] LABS: ALKALINE PHOSPHATASE 122 U/L (45-117); TOTAL BILIRUBIN ADULT 0.7 MG/DL (0.2-1.0)
[2017-04-12 08:00] VITALS: BP 109/64; PULSE 80; RESP 17; TEMP 97.6; O2SAT 98
[2017-04-12] MEDS: REMOVE OLD PATCH T-DERMAL SCH (09:00)
[2017-04-12] MEDS: SODIUM CHLORIDE 0.9% FLUSH 10 ML FLUSH IV FLUSH SCH ×2 (09:47→22:06)
[2017-04-12] MEDS: MULTIVITAMINS/MINERALS THERAPEUTIC TAB PO SCH (09:47)
[2017-04-12] MEDS: FOLIC ACID 1 MG TAB PO SCH (09:48)
[2017-04-12] MEDS: DOCUSATE SODIUM 50 MG/SENNA 8.6 MG TAB PO SCH ×2 (09:48→22:05)
[2017-04-12] MEDS: MESALAMINE 250 MG CAP PO SCH ×2 (09:48→22:04)
[2017-04-12] MEDS: NICOTINE 21 MG/24 HR PATCH T-DERMAL SCH (09:48)
[2017-04-12] MEDS: THIAMINE HCL 100 MG TAB PO SCH (09:48)
[2017-04-12] MEDS: predniSONE 20 MG TAB PO SCH ×2 (09:48→22:04)
[2017-04-12] MEDS: ONDANSETRON HCL 4 MG/2 ML VIAL IVP PRN ×2 (09:49→15:42)
[2017-04-12 12:00] VITALS: BP 112/72; PULSE 77; RESP 18; TEMP 98.1; O2SAT 97
--- NOTE | 2017-04-12 12:36 | HHI.PR ---
Subjective Remarks Patient seen in follow-up for abdominal pain and for Crohn's. Patient poorly adherent with medication management He frequently runs out of his medications and is not follow-up. Patient has been restarted prednisone by GI. Surgical consult completed with a requisition for conservative management of inguinal hernia. Now status post paracentesis of 2.8 L. Patient's abdomen feels much better. Objective Vitals Vital Signs Date Time Temp Pulse Resp B/P (MAP) Pulse Ox O2 Delivery O2 Flow Rate FiO2 04/12/17 08:00 97.6 80 17 109/64 (79) 98 04/12/17 04:00 97.1 92 20 109/72 (84) 97 04/12/17 00:00 97.1 84 20 108/65 (79) 97 04/11/17 20:00 104 04/11/17 20:00 98.4 99 20 118/69 (85) 97 04/11/17 17:04 97.7 89 19 110/76 (87) 98 04/11/17 16:49 98.5 106 18 105/64 (78) 96 04/11/17 16:00 97.7 85 19 132/79 (96) 95 I/O 04/11/17 04/11/17 04/11/17 04/12/17 04/12/17 04/12/17 07:00 15:00 23:00 07:00 15:00 23:00 Intake Total 783 ml 145 ml 820 ml Output Total 300 ml Balance 483 ml 145 ml 820 ml Intake Oral 420 ml 720 ml IV Total 363 ml 145 ml 100 ml Output Urine Total 300 ml # Voids 4 # Bowel Movements 2 2 Result Diagram: 04/12/17 0640 04/12/17 0640 Imaging Last Impressions Cyst Biopsy Asp-Paracentesis US 04/11/17 0000 Signed Impressions: Service Date/Time: Tuesday, April 11, 2017 07:42 - CONCLUSION: Uncomplicated ultrasound guided paracentesis. Oc Fletcher MD Objective Remarks GENERAL: This is a well-nourished, well-developed patient, in no apparent distress. CARDIOVASCULAR: Regular rate and rhythm without murmurs, gallops, or rubs. RESPIRATORY: Clear to auscultation. Breath sounds equal bilaterally. No wheezes , rales, or rhonchi. GASTROINTESTINAL: Abdomen soft, non-tender, minimally distended. Normal active bowel sounds, inguinal hernia MUSCULOSKELETAL: Extremities without clubbing, cyanosis, or edema. NEURO: Alert & Oriented x4 to person, place, time, situation. Moves all ext x4 Procedures Paracentesis 2.8 L clear fluid A/P Problem List: (1) Ascites due to alcoholic cirrhosis ICD Code: K70.31 - Alcoholic cirrhosis of liver with ascites Status: Acute Plan: s/p paracentesis yesterday Feels better (2) Anemia ICD Code: D64.9 - Anemia, unspecified Status: Acute Plan: chronic due to chronic inflammatory bowel disease and alcoholism. (3) Exacerbation of Crohn's disease ICD Code: K50.90 - Exacerbation of Crohn's disease Status: Acute Plan: Continue steroids, pentasa (4) Hypokalemia ICD Code: E87.6 - Hypokalemia Status: Acute Plan: Patient on potassium at home but this was held due to initial hyperkalemia We'll continue potassium replacement Assessment and Plan d/c telem labs in am Discharge Planning Likely DC in a.m. if cleared by Kiya Portillo MD Apr 12, 2017 12:36
[2017-04-12] MEDS ORDERED: POTASSIUM CHLORIDE 10 MEQ CONTROLLED RELEASE TAB PO ONE (13:30)
[2017-04-12 20:00] VITALS: BP 106/62; PULSE 80; PULSE 82; RESP 16; TEMP 98; O2SAT 97
[2017-04-13] VITALS: BP 99/60; PULSE 77; RESP 16; TEMP 97.9; O2SAT 98
[2017-04-13 04:00] VITALS: BP 119/66; PULSE 82; RESP 18; TEMP 98; O2SAT 98
[2017-04-13] MEDS: HYDROmorphone HCL PF 1 MG/ML VIAL IV PUSH PRN (06:27)
[2017-04-13] MEDS: ONDANSETRON HCL 4 MG/2 ML VIAL IVP PRN (06:28)
[2017-04-13] MEDS: SODIUM CHLORIDE 0.9% FLUSH 10 ML FLUSH IV FLUSH PRN (06:28)
[2017-04-13 06:29] LABS: AUTOMATED NEUTROPHIL # 11.5 TH/MM3 (1.8-7.7); BASOPHIL % 0.1 % (0.0-2.0); EOSINOPHIL % 0.2 % (0.0-4.0); HEMATOCRIT 26.3 % (39.0-51.0); LYMPH % 7.4 % (9.0-44.0); MEAN CELL VOLUME 90.4 FL (80.0-100.0); MEAN CORPUSCULAR HEMOGLOBIN 29.5 PG (27.0-34.0); MEAN CORPUSCULAR HGB CONC 32.6 % (32.0-36.0); MONO % 8.2 % (0.0-8.0); NEUT % 84.1 % (16.0-70.0); PLATELET COUNT 168 TH/MM3 (150-450); RED BLOOD COUNT 2.91 MIL/MM3 (4.50-5.90); RED CELL DISTRIBUTION WIDTH 17.6 % (11.6-17.2); WHITE BLOOD COUNT 13.6 TH/MM3 (4.0-11.0)
[2017-04-13 06:38] LABS: HEMO FLAGS AUTO DIFF; POTASSIUM 3.6 MEQ/L (3.5-5.1)
[2017-04-13 06:42] LABS: BICARBONATE 20.2 MEQ/L (21.0-32.0); MAGNESIUM 1.6 MG/DL (1.5-2.5)
[2017-04-13 07:14] LABS: KERATOCYTES OCC (NORMAL); OVALOCYTES 1+ (NORMAL); SCAN/DIFF AUTO DIFF CONFIRMED
[2017-04-13 08:44] VITALS: BP 117/72; PULSE 80; RESP 20; TEMP 98.4; O2SAT 99
[2017-04-13] MEDS ORDERED: POTASSIUM CHLORIDE 20 MEQ CONTROLLED RELEASE TAB PO SCH (09:00)
[2017-04-13] MEDS: DOCUSATE SODIUM 50 MG/SENNA 8.6 MG TAB PO SCH (10:45)
[2017-04-13] MEDS: MESALAMINE 250 MG CAP PO SCH (10:45)
[2017-04-13] MEDS: NICOTINE 21 MG/24 HR PATCH T-DERMAL SCH (10:45)
[2017-04-13] MEDS: MULTIVITAMINS/MINERALS THERAPEUTIC TAB PO SCH (10:45)
[2017-04-13] MEDS: THIAMINE HCL 100 MG TAB PO SCH (10:45)
[2017-04-13] MEDS: FOLIC ACID 1 MG TAB PO SCH (10:45)
[2017-04-13] MEDS ORDERED: FURO1TAB62 PO (11:23)
[2017-04-13] MEDS ORDERED: TYLETAB34 PO (11:23)
[2017-04-13] MEDS ORDERED: PRED20 PO (11:23)
--- NOTE | 2017-04-13 11:33 | HHI.DS ---
Discharge Summary Admission Date Apr 09, 2017 at 21:32 Discharge Date: Apr 13, 2017 Admitting Diagnosis upper GI bleed, anemia, ascites (1) Ascites due to alcoholic cirrhosis ICD Code: K70.31 - Alcoholic cirrhosis of liver with ascites Status: Acute (2) Anemia ICD Code: D64.9 - Anemia, unspecified Status: Acute (3) Exacerbation of Crohn's disease ICD Code: K50.90 - Exacerbation of Crohn's disease Status: Acute (4) Hypokalemia ICD Code: E87.6 - Hypokalemia Status: Acute Procedures Paracentesis 2.8 L clear fluid Brief History - From Admission Mr. st is a 51-year-old male. He came into the hospital with complaints of 2 weeks of abdominal pain. He is also been noticing loss of blood per rectum. She has a history of cirrhosis secondary to alcohol abuse. At this time he also has evidence of somatic ascites. He complains of abdominal distention and pain and tenderness in addition to testicular swelling. Patient had a hemoglobin of 7.2 at time of arrival. He has been transfused packed red blood cells for this and transfusion is ongoing. No fevers reported. He does have episodes of nausea and vomiting. At baseline he smokes 1 pack per day but no longer is drinking alcohol. No other complaints today. CBC/BMP: 04/13/17 0610 04/13/17 0610 Significant Findings Laboratory Tests Test 04/10/17 18:56 04/11/17 05:40 04/11/17 17:10 04/12/17 06:10 Red Blood Count 3.19 MIL/MM3 (4.50-5.90) Hemoglobin 9.6 GM/DL (13.0-17.0) Hematocrit 28.3 % (39.0-51.0) Red Cell Distribution Width 17.7 % (11.6-17.2) Platelet Count 141 TH/MM3 (150-450) Neutrophils (%) (Auto) 82.7 % (16.0-70.0) Lymphocytes (%) (Auto) 7.1 % (9.0-44.0) Neutrophils # (Auto) 8.0 TH/MM3 (1.8-7.7) Lymphocytes # (Auto) 0.7 TH/MM3 (1.0-4.8) Prothrombin Time 15.2 SEC (9.8-11.6) 16.1 SEC (9.8-11.6) 15.5 SEC (9.8-11.6) Total Protein 5.5 GM/DL (6.4-8.2) Albumin 2.5 GM/DL (3.4-5.0) Calcium Level 8.0 MG/DL (8.5-10.1) Alkaline Phosphatase 156 U/L (45-117) Total Bilirubin 3.5 MG/DL (0.2-1.0) Chloride Level 110 MEQ/L (98-107) Carbon Dioxide Level 18.6 MEQ/L (21.0-32.0) Activated Partial Thromboplast Time 34.9 SEC (24.3-30.1) 32.5 SEC (24.3-30.1) Peritoneal Fluid WBC 334 /MM3 (0-10) Peritoneal Fluid RBC 144 /MM3 (0-0) Test 04/12/17 06:40 04/13/17 06:10 White Blood Count 11.9 TH/MM3 (4.0-11.0) 13.6 TH/MM3 (4.0-11.0) Red Blood Count 2.73 MIL/MM3 (4.50-5.90) 2.91 MIL/MM3 (4.50-5.90) Hemoglobin 8.1 GM/DL (13.0-17.0) 8.6 GM/DL (13.0-17.0) Hematocrit 24.4 % (39.0-51.0) 26.3 % (39.0-51.0) Red Cell Distribution Width 17.6 % (11.6-17.2) 17.6 % (11.6-17.2) Platelet Count 143 TH/MM3 (150-450) Neutrophils (%) (Auto) 85.5 % (16.0-70.0) 84.1 % (16.0-70.0) Lymphocytes (%) (Auto) 6.2 % (9.0-44.0) 7.4 % (9.0-44.0) Neutrophils # (Auto) 10.3 TH/MM3 (1.8-7.7) 11.5 TH/MM3 (1.8-7.7) Lymphocytes # (Auto) 0.7 TH/MM3 (1.0-4.8) Random Glucose 144 MG/DL (74-106) 134 MG/DL (74-106) Total Protein 5.2 GM/DL (6.4-8.2) Albumin 2.2 GM/DL (3.4-5.0) Calcium Level 7.9 MG/DL (8.5-10.1) Alkaline Phosphatase 122 U/L (45-117) Potassium Level 3.1 MEQ/L (3.5-5.1) Chloride Level 110 MEQ/L (98-107) 108 MEQ/L (98-107) Carbon Dioxide Level 20.3 MEQ/L (21.0-32.0) 20.2 MEQ/L (21.0-32.0) Monocytes (%) (Auto) 8.2 % (0.0-8.0) Monocytes # (Auto) 1.1 TH/MM3 (0-0.9) Ovalocytes 1+ (NORMAL) Creatinine 0.49 MG/DL (0.60-1.30) Imaging Last Impressions Cyst Biopsy Asp-Paracentesis US 04/11/17 0000 Signed Impressions: Service Date/Time: Tuesday, April 11, 2017 07:42 - CONCLUSION: Uncomplicated ultrasound guided paracentesis. Oc Fletcher MD PE at Discharge GENERAL: This is a well-nourished, well-developed patient, in no apparent distress. CARDIOVASCULAR: Regular rate and rhythm without murmurs, gallops, or rubs. RESPIRATORY: Clear to auscultation. Breath sounds equal bilaterally. No wheezes , rales, or rhonchi. GASTROINTESTINAL: Abdomen soft, non-tender, minimally distended. Normal active bowel sounds, inguinal hernia MUSCULOSKELETAL: Extremities without clubbing, cyanosis, or edema. NEURO: Alert & Oriented x4 to person, place, time, situation. Moves all ext x4 Pt update on day of discharge scrotal edema, inguinal hernia GENERAL: This is a well-nourished, well-developed patient, in no apparent distress. CARDIOVASCULAR: Regular rate and rhythm without murmurs, gallops, or rubs. RESPIRATORY: Clear to auscultation. Breath sounds equal bilaterally. No wheezes , rales, or rhonchi. GASTROINTESTINAL: Abdomen soft, non-tender, mildly distended. Normal active bowel sounds MUSCULOSKELETAL: Extremities without clubbing, cyanosis, or edema. NEURO: Alert & Oriented x4 to person, place, time, situation. Moves all ext x4 Hospital Course patient seen and treated for abdominal distention and ascites likely secondary to alcoholic related cirrhosis. Patient with nonadherence to medical treatment. He did have a paracentesis of 2.8 L removed with clear fluid. He also had evaluation by stripper and taper for his Crohn's and his adherence was reinforced Pt Condition on Discharge: Good Discharge Disposition: Discharge Home Discharge Time: > 30 minutes Discharge Instructions DIET: Follow Instructions for: As Tolerated, No Restrictions Activities you can perform: Regular-No Restrictions Follow up Referrals: Gastroenterology - 3 Weeks Surgical with Dung Weinberg MD New Medications: Acetaminophen-Codeine (Tylenol-Codeine #3) 300-30 mg Tab 1 TAB PO Q4H PRN for PAIN for 20 Days, #120 TAB 0 Refills Furosemide (Lasix) 20 Mg Tab 20 MG PO DAILY for fluid, #30 TAB 0 Refills Prednisone (Prednisone) 20 Mg Tab 20 MG PO BID for Inflammation, #30 TAB Continued Medications: Mesalamine ER (Pentasa) 250 Mg Caper 1000 MG PO BID for Ulcerative Colitis for 30 Days, #60 CAP 0 Refills Pantoprazole (Pantoprazole) 40 Mg Tab 40 MG PO DAILY for gastritis, #60 TAB 3 Refills Polyethylene Glycol 3350 Powder (Miralax Powder) 17 Gm Powd 17 GM PO DAILY for Constipation, #1 CAN 0 Refills Mix and dissolve one measuring cap-ful (17 grams) in water or juice. Potassium Chloride ER (K-Tab) 20 Meq Tab 1 TAB PO BID for Electrolyte Replacement, #60 TAB 3 Refills Kiya Rodriguez MD Apr 13, 2017 11:27
--- NOTE | 2017-04-13 11:33 | HHI.DCPOC ---
Discharge Care Plan Diagnosis: (1) Hernia (2) Exacerbation of Crohn's disease Goals to Promote Your Health * To prevent worsening of your condition and complications * To maintain your health at the optimal level Directions to Meet Your Goals Take your medications as prescribed Follow your dietary instruction Follow activity as directed Keep your appointments as scheduled Take your immunizations and boosters as scheduled If your symptoms worsen call your PCP, if no PCP go to Urgent Care Center or Emergency Room Smoking is Dangerous to Your Health. Avoid second hand smoke Call the 24-hour hour crisis hotline for domestic abuse at Kiya Rodriguez MD Apr 13, 2017 11:28
--- NOTE | 2017-04-13 11:38 | HHI.GIFU ---
Subjective Remarks Sitting in bed getting ready to be going home still complains of swelling in the scrotum Objective Vitals I&O Vital Signs Date Time Temp Pulse Resp B/P (MAP) Pulse Ox O2 Delivery O2 Flow Rate FiO2 04/13/17 08:44 98.4 80 20 117/72 (87) 99 04/13/17 04:00 98.0 82 18 119/66 (83) 98 04/13/17 00:00 97.9 77 16 99/60 (73) 98 04/12/17 20:00 82 04/12/17 20:00 98.0 80 16 106/62 (77) 97 04/12/17 12:00 98.1 77 18 112/72 (85) 97 I/O 04/12/17 04/12/17 04/12/17 04/13/17 04/13/17 04/13/17 07:00 15:00 23:00 07:00 15:00 23:00 Intake Total 820 ml 220 ml 240 ml Output Total 150 ml 250 ml Balance 820 ml 70 ml -10 ml Intake Oral 720 ml 220 ml 240 ml IV Total 100 ml Output Urine Total 150 ml 250 ml # Voids 4 2 # Bowel Movements 2 1 0 Laboratory Laboratory Tests Test 04/13/17 06:10 White Blood Count 13.6 Red Blood Count 2.91 Hemoglobin 8.6 Hematocrit 26.3 Mean Corpuscular Volume 90.4 Mean Corpuscular Hemoglobin 29.5 Mean Corpuscular Hemoglobin Concent 32.6 Red Cell Distribution Width 17.6 Platelet Count 168 Mean Platelet Volume 7.7 Neutrophils (%) (Auto) 84.1 Lymphocytes (%) (Auto) 7.4 Monocytes (%) (Auto) 8.2 Eosinophils (%) (Auto) 0.2 Basophils (%) (Auto) 0.1 Neutrophils # (Auto) 11.5 Lymphocytes # (Auto) 1.0 Monocytes # (Auto) 1.1 Eosinophils # (Auto) 0.0 Basophils # (Auto) 0.0 CBC Comment AUTO DIFF Differential Comment AUTO DIFF CONFIRMED Ovalocytes 1+ Keratocytes OCC Blood Urea Nitrogen 7 Creatinine 0.49 Random Glucose 134 Calcium Level 8.5 Magnesium Level 1.6 Sodium Level 137 Potassium Level 3.6 Chloride Level 108 Carbon Dioxide Level 20.2 Anion Gap 9 Estimat Glomerular Filtration Rate 179 Thyroid Stimulating Hormone 3rd Gen 1.190 Date/Time Source Procedure Growth Status 10/3/17 17:10 Fluid Peritoneal Fluid Gram Stain - Final Resulted 04/11/17 17:10 Fluid Peritoneal Fluid Body Fluid Culture - Preliminary NO GROWTH IN 48 HOURS. Resulted Physical Exam HEENT: Normocephalic; atraumatic; no jaundice. NECK: Neck is supple. CHEST: CTA CARDIAC: RRR with no murmur gallop or rubs. ABDOMEN: Less distended abdomen nontender EXTREMITIES: No clubbing, cyanosis, or edema. SKIN: Normal; no rash; no jaundice. 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; alert and oriented x 3 Assessment and Plan Plan Patient with known history of Crohn's with new onset of ascites with SAAG greater than 1.1 suggestive of portal hypertension with no clear etiology Also of note patient with inguinal hernia and scrotal swelling Patient is advised to be on a low-salt diet Advised to be compliant with medications and to follow-up in clinic Patient will require workup from a liver standpoint Would recommend Lasix 20 mg and Aldactone 100 mg daily to help control ascites or if we can have patient follow-up in clinic and reassess the need for diuretics that is also another option unless there is a quick reaccumulation of ascites Ashwin Powell MD Apr 13, 2017 11:38
== END 2017-04-13 12:31 | disposition home or self-care (01) | DRG 433 ==
LOC: PHED 18:13 → PHEDA 21:32 → PH5A 22:40
PROVIDERS: ADMIT Hospitalist; ATTEND Hospitalist
PROC: 30233N1 Transfusion of Nonautologous Red Blood Cells into Peripheral Vein, Percutaneous Approach (ICD-10-PCS; 2017-04-10)
PROC: 0W9G3ZZ Drainage of Peritoneal Cavity, Percutaneous Approach (ICD-10-PCS; principal; 2017-04-11)
DX: K70.31 Alcoholic cirrhosis of liver with ascites (principal); K92.2 Gastrointestinal hemorrhage, unspecified; R64 Cachexia; D62 Acute posthemorrhagic anemia; K50.90 Crohn's disease, unspecified, without complications; Z68.1 Body mass index [BMI] 19.9 or less, adult; E87.5 Hyperkalemia; F17.210 Nicotine dependence, cigarettes, uncomplicated; E87.6 Hypokalemia; F32.9 Major depressive disorder, single episode, unspecified; F41.9 Anxiety disorder, unspecified; K40.90 Unilateral inguinal hernia, without obstruction or gangrene, not specified as recurrent; K21.9 Gastro-esophageal reflux disease without esophagitis; J44.9 Chronic obstructive pulmonary disease, unspecified; N50.89 Other specified disorders of the male genital organs; F10.21 Alcohol dependence, in remission; B95.62 Methicillin resistant Staphylococcus aureus infection as the cause of diseases classified elsewhere; L08.9 Local infection of the skin and subcutaneous tissue, unspecified; Z86.14 Personal history of Methicillin resistant Staphylococcus aureus infection; Z91.14 Patient's other noncompliance with medication regimen
CPT/HCPCS: 36430; 49083; 76937; 80048; 80053; 81001; 82042; 82140; 82150; 82945; 82948; 83690; 83735; 84157; 84443; 85025; 85610; 85730; 86850; 86900; 86901; 86920; 87070; 87205; 89051; 93005; 96361; 96374; 96375; C1729; C9113; J1170; J2270; J2405; J2543; J7030; J7050; J7512; P9016

== ENCOUNTER 2017-05-02 20:49 | Inpatient (IN) | payer OTHER ==
[~2017-05-02] VITALS: Ht 182.9 cm; Wt 49.3 kg
[~2017-05-02 20:49] MED LIST changes: -CIPR-9 PO; +FURO1TAB62 PO; -FURO40TA PO; -IMUR50TA PO; -METR-1 PO; -NYST1000 SWISH-SWAL; -PRED10PA2 PO; +PRED20 PO; +TYLETAB34 PO
[2017-05-02 20:53] VITALS: BP 109/57; PULSE 112; RESP 18; TEMP 98.2; O2SAT 93
[2017-05-02] MEDS ORDERED: MORPHINE SULFATE 4 MG/ML INJ IV PUSH ONE (21:15)
[2017-05-02] MEDS ORDERED: ONDANSETRON HCL 4 MG/2 ML VIAL IVP ONE (21:15)
[2017-05-02 21:17] VITALS: O2SAT 94
--- NOTE | 2017-05-02 21:24 | PD ---
HPI Chief Complaint: Abdominal Pain Time Seen by Provider: 21:10 Travel History International Travel<30 days: No Contact w/Intl Traveler<30days: No Traveled to known affect area: No History of Present Illness HPI 52-year-old male with history of Crohn's disease status post small bowel resection several years ago, cirrhosis, ascites, here for evaluation of abdominal pain, nausea, vomiting. Patient reports diffuse abdominal pain that radiates to his back. He states that the pain is similar to usual Crohn flares , however has been worse over the last 5 days. He was recently admitted and discharged home with no solids seen, Lasix, potassium chloride, prednisone, Imuran, and Protonix, however he reports that he ran out of his medications a week ago. He has prescription bottles of these medications, and they're filled by one of our hospitalists. He has no local primary care physician. States that he used to be seen at [facility] for his [facility]hn's, however no longer goes there. He is feeling somewhat feverish. He had 2 episodes of vomiting yesterday. He reports blood in his stool and loose stools today. Abdominal pain is sharp and cramping, severe, constant, worse with movements and palpation. He also is complaining of pain to his right index finger where he believes he had a splinter about a week and a half ago, and has since become swollen and erythematous. He reports that the swelling has improved, however is still present. PFSH Past Medical History Hx Anticoagulant Therapy: No Arthritis: Yes Asthma: Yes Blood Disorders: No Anxiety: Yes Depression: Yes Cancer: No Cardiovascular Problems: No COPD: Yes Cerebrovascular Accident: No Diabetes: No Diminished Hearing: No Endocrine: No Gastrointestinal Disorders: Yes (CROHNS) GERD: Yes Genitourinary: No Headaches: Yes Hiatal Hernia: Yes Immune Disorder: No Inguinal Hernia: Yes Implanted Vascular Access Dvce: No Musculoskeletal: Yes (BILAT KNEES.) Neurologic: Yes Psychiatric: Yes Reproductive: No Respiratory: Yes (asthma) Immunizations Current: Yes Migraines: No Pancreatitis: Yes Seizures: No Tetanus Vaccination: Unknown Influenza Vaccination: No ?: Not Past Surgical History Abdominal Surgery: Yes (COLON RESECTION DUE TO CROHNS) Cardiac Surgery: No Genitourinary Surgery: No Neurologic Surgery: No Pacemaker: No Thoracic Surgery: No Tonsillectomy: Yes Other Surgery: Yes (TONSILECTOMY, CHRON'S DISEASE) Social History Alcohol Use: No (quit) Tobacco Use: Yes (1 PPD) Substance Use: No Allergies-Medications (Allergen,Severity, Reaction): Coded Allergies: tetanus toxoid, adsorbed (Unverified Allergy, Severe, Nausea/Vomiting, ) Reported Meds & Prescriptions Reported Meds & Active Scripts Active Tylenol-Codeine #3 (Acetaminophen-Codeine) 300-30 mg Tab 1 Tab PO Q4H PRN 20 Days Lasix (Furosemide) 20 Mg Tab 20 Mg PO DAILY Prednisone 20 Mg Tab 20 Mg PO BID Miralax Powder (Polyethylene Glycol 3350 Powder) 17 Gm Powd 17 Gm PO DAILY Mix and dissolve one measuring cap-ful (17 grams) in water or juice. Pantoprazole (Pantoprazole Sodium) 40 Mg Tab 40 Mg PO DAILY K-Tab (Potassium Chloride) 20 Meq Tab 1 Tab PO BID Pentasa (Mesalamine) 250 Mg Caper 1,000 Mg PO BID 30 Days Review of Systems Except as stated in HPI: all other systems reviewed are Neg Physical Exam Narrative GENERAL: Well-developed, thin, comfortable, no apparent distress. SKIN: Focused skin assessment warm/dry. Black paint on bilateral hands. Right index finger with moderate swelling over the dorsal aspect with mild warmth and erythema, normal range of flexion, unable to extend the the distal phalanx at the DIP, mild diffuse tenderness, no tenderness along the flexor tendon, no pain with passive extension of the finger. No open wounds. HEAD: Atraumatic. Normocephalic. EYES: Pupils equal and round. No scleral icterus. No injection or drainage. ENT: Mucous membranes pink and moist. NECK: Trachea midline. No JVD. CARDIOVASCULAR: Regular rate and rhythm. No murmur appreciated. RESPIRATORY: No accessory muscle use. Clear to auscultation. Breath sounds equal bilaterally. GASTROINTESTINAL: Abdomen soft, nondistended. Mild fluid wave. Mild tenderness. No peritoneal signs. MUSCULOSKELETAL: No obvious deformities. No clubbing. No cyanosis. No edema. NEUROLOGICAL: Awake and alert. No obvious cranial nerve deficits. Motor grossly within normal limits. Normal speech. PSYCHIATRIC: Appropriate mood and affect; insight and judgment normal. Data Data Last Documented VS Vital Signs Date Time Temp Pulse Resp B/P (MAP) Pulse Ox O2 Delivery O2 Flow Rate FiO2 05/03/17 00:43 90 18 96/57 (70) 94 Room Air 05/02/17 20:53 98.2 Orders Orders Complete Blood Count With Diff (05/02/17 21:15) Comprehensive Metabolic Panel (05/02/17 21:15) Lipase (05/02/17 21:15) Prothrombin Time / Inr (Pt) (05/02/17 21:15) Act Partial Throm Time (Ptt) (05/02/17 21:15) Urinalysis - C+S If Indicated (05/02/17 21:15) Ct Abd/Pel W Iv Contrast(Rout) (05/02/17 21:15) Iv Access Insert/Monitor (05/02/17 21:15) Ecg Monitoring (05/02/17 21:15) Oximetry (05/02/17 21:15) Morphine Inj (Morphine Inj) (05/02/17 21:15) Ondansetron Inj (Zofran Inj) (05/02/17 21:15) Sodium Chloride 0.9% Flush (Ns Flush) (05/02/17 21:15) Finger ([id number]) (05/02/17 ) Chest, Single Ap (05/02/17 ) Oral Contrast - Adult (05/02/17 21:31) Diatrizoate Liq ( Gastroview Liq) (05/02/17 21:36) Blood Culture (05/02/17 22:20) Lactic Acid (05/02/17 22:20) Consult Hand Surgery (05/02/17 ) Diet Npo (05/03/17 Breakfast) (Hub Use Only)Inp Phy Cons/Ref (05/02/17 ) Vancomycin Inj (Vancomycin Inj) (05/02/17 23:00) Potassium Chlor 20 Meq Premix (Kcl 20 Me (05/02/17 23:15) Mri Hand W&W/O Contrast (05/02/17 23:29) Iohexol 350 Inj (Omnipaque 350 Inj) (05/02/17 23:35) Morphine Inj (Morphine Inj) (05/03/17 00:15) Admit Order (Ed Use Only) (05/03/17 01:00) Labs Laboratory Tests Test 05/02/17 21:30 05/02/17 22:30 White Blood Count 20.0 TH/MM3 Red Blood Count 2.85 MIL/MM3 Hemoglobin 8.6 GM/DL Hematocrit 25.8 % Mean Corpuscular Volume 90.3 FL Mean Corpuscular Hemoglobin 30.2 PG Mean Corpuscular Hemoglobin Concent 33.4 % Red Cell Distribution Width 17.5 % Platelet Count 144 TH/MM3 Mean Platelet Volume 7.4 FL Neutrophils (%) (Auto) 79.3 % Lymphocytes (%) (Auto) 11.9 % Monocytes (%) (Auto) 6.8 % Eosinophils (%) (Auto) 1.1 % Basophils (%) (Auto) 0.9 % Neutrophils # (Auto) 15.8 TH/MM3 Lymphocytes # (Auto) 2.4 TH/MM3 Monocytes # (Auto) 1.4 TH/MM3 Eosinophils # (Auto) 0.2 TH/MM3 Basophils # (Auto) 0.2 TH/MM3 CBC Comment DIFF FINAL Differential Comment Prothrombin Time 13.8 SEC Prothromb Time International Ratio 1.2 RATIO Activated Partial Thromboplast Time 26.6 SEC Blood Urea Nitrogen 14 MG/DL Creatinine 0.70 MG/DL Random Glucose 93 MG/DL Total Protein 5.6 GM/DL Albumin 2.4 GM/DL Calcium Level 7.7 MG/DL Alkaline Phosphatase 145 U/L Aspartate Amino Transf (AST/SGOT) 29 U/L Alanine Aminotransferase (ALT/SGPT) 35 U/L Total Bilirubin 0.6 MG/DL Sodium Level 139 MEQ/L Potassium Level 2.4 MEQ/L Chloride Level 106 MEQ/L Carbon Dioxide Level 22.2 MEQ/L Anion Gap 11 MEQ/L Estimat Glomerular Filtration Rate 118 ML/MIN Lipase 536 U/L Lactic Acid Level 2.3 mmol/L MDM Medical Decision Making Medical Screen Exam Complete: Yes Emergency Medical Condition: Yes Medical Record Reviewed: Yes Differential Diagnosis Chronic pain, Crohn's flare, SBP unlikely, bowel obstruction, right index finger cellulitis/foreign body, flexor tenosynovitis, mallet finger Narrative Course Initial vital signs show heart rate 112, blood pressure 109/57, pulse ox 93% on room air, oral temp of 98.2F. Patient has a mallet deformity to his right index finger. 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 He also has diffuse swelling to the finger mainly on the dorsal aspect. There is no pain with passive extension of the finger, and in fact this relieves the pain. He does have some mild diffuse tenderness to the finger. No tenderness along the flexor tendon sheath. He has a white count of 20,000, and although he has been on prednisone, is could also be infectious in nature, likely secondary to his finger. Case discussed with on-call hand surgeon Dr. Kim who recommends IV antibiotics at this time in obtaining an MRI of the index finger. She will see the patient in consultation. CBC: WBC 20, hemoglobin 8.6, hematocrit 25.8, platelets 144, neutrophils 79.3%. CMP is remarkable for potassium 2.4, total protein 5.6, albumin 2.4. Lactic acid is 2.3. Lipase is 536. CT abd/pelvis: CONCLUSION: 1. Nonobstructing right-sided renal calculi measuring 4-5 mm. 2. Small abdominal ascites. 3. Wall thickening involving multiple distal small bowel loops which can be seen with patient's known diagnosis of Crohn's. 4. Spleen mildly enlarged. 5. Mesenteric lymph nodes are again seen and unchanged. Patient was started on IV vancomycin. Potassium replaced parenterally. He was made aware of all findings and plan for admission. Case discussed with hospitalist Dr. Eubanks who will admit the patient to her service. Diagnosis Primary Impression: Cellulitis of finger of right hand Additional Impressions: Abdominal pain Qualified Codes: R10.84 - Generalized abdominal pain Hypokalemia Exacerbation of Crohn's disease Qualified Codes: K50.90 - Crohn's disease, unspecified, without complications Leukocytosis Qualified Codes: D72.829 - Elevated white blood cell count, unspecified Admitting Information Admitting Physician Requests: Admit Isrrael Gonzales MD May 02, 2017 21:24
[2017-05-02] MEDS ORDERED: DIATRIZOATE MEGLUM/DIATRIZOATE SOD 9 ML CUP ONE (21:36)
[2017-05-02 21:39] LABS: AUTOMATED NEUTROPHIL # 15.8 TH/MM3 (1.8-7.7); BASOPHIL # 0.2 TH/MM3 (0-0.2); BASOPHIL % 0.9 % (0.0-2.0); EOSINOPHIL # 0.2 TH/MM3 (0-0.4); EOSINOPHIL % 1.1 % (0.0-4.0); HEMATOCRIT 25.8 % (39.0-51.0); LYMPH % 11.9 % (9.0-44.0); LYMPHOCYTE # 2.4 TH/MM3 (1.0-4.8); MEAN CELL VOLUME 90.3 FL (80.0-100.0); MEAN CORPUSCULAR HEMOGLOBIN 30.2 PG (27.0-34.0); MEAN CORPUSCULAR HGB CONC 33.4 % (32.0-36.0); MONO % 6.8 % (0.0-8.0); NEUT % 79.3 % (16.0-70.0); PLATELET COUNT 144 TH/MM3 (150-450); RED BLOOD COUNT 2.85 MIL/MM3 (4.50-5.90); RED CELL DISTRIBUTION WIDTH 17.5 % (11.6-17.2)
[2017-05-02 21:54] LABS: APTT (PATIENT) 26.6 SEC (24.3-30.1); INTERNATIONAL NORMALIZED RATIO 1.2 RATIO; PROTHROMBIN TIME - PATIENT 13.8 SEC (9.8-11.6)
--- NOTE | 2017-05-02 22:09 | RADRPT ---
EXAM DATE/TIME: 05/02/2017 21:37 [facility] COMPARISON: No previous studies available for comparison. INDICATIONS : Right 2nd digit swelling for 1 week. Evaluate for foreign body. MEDICAL HISTORY : Pancreatitis. Hernia, hiatal. Gastroesophageal reflux disease. COPD. Ast hma. Crohns. SURGICAL HISTORY : Tonsillectomy. Colon resection. ENCOUNTER: Initial ACUITY: 1 week PAIN SCORE: 4/10 LOCATION: Right 2nd digit. FINDINGS: No definite fractures, or dislocations are identified. No definite lytic or sclerotic lesion is seen . There is no evidence for a radiopaque foreign body for technique. There is contracture of the secon d PIP joint. CONCLUSION: There is no evidence for a radiopaque foreign body for technique. Jewell Catalan MD on May 02, 2017 at 22:07 Board Certified Radiologist. This report was verified electronically.
--- NOTE | 2017-05-02 22:10 | RADRPT ---
EXAM DATE/TIME: 05/02/2017 21:37 [facility] COMPARISON: CHEST SINGLE AP, February 19, 2016, 15:39. INDICATIONS : Epigastric pain. MEDICAL HISTORY : Pancreatitis. Hernia, hiatal. Gastroesophageal reflux disease. COPD. Asthma. Crohns. SURGICAL HISTORY : Tonsillectomy. Colon resection. ENCOUNTER: Initial ACUITY: 2 days PAIN SCORE: 6/10 LOCATION: Bilateral chest FINDINGS: The lungs are clear without infiltrate, nodule, or mass. There is no appreciable pleural effusion fo r technique. Heart and mediastinum are unremarkable. CONCLUSION: No acute cardiopulmonary disease. Jewell Catalan MD on May 02, 2017 at 22:08 Board Certified Radiologist. This report was verified electronically.
[2017-05-02 22:11] LABS: HEMO FLAGS DIFF FINAL
[2017-05-02 22:47] VITALS: BP 96/63; PULSE 97; RESP 18; O2SAT 94
[2017-05-02 22:53] LABS: ALKALINE PHOSPHATASE 145 U/L (45-117); ALT (GPT) 35 U/L (12-78); ANION GAP 11 MEQ/L (5-15); AST (GOT) 29 U/L (15-37); BICARBONATE 22.2 MEQ/L (21.0-32.0); BLOOD UREA NITROGEN 14 MG/DL (7-18); CHLORIDE 106 MEQ/L (98-107); GLOMERULAR FILTRATION RATE 118 ML/MIN (>89); SODIUM (NA) 139 MEQ/L (136-145); TOTAL BILIRUBIN ADULT 0.6 MG/DL (0.2-1.0)
[2017-05-02 22:55] LABS: POTASSIUM 2.4 MEQ/L (3.5-5.1)
[2017-05-02] MEDS ORDERED: VANCOMYCIN INJ 1,000 MG in SODIUM CHLOR 0.9% 250 ML INJ 250 ML IV ONE (23:00)
[2017-05-02] MEDS ORDERED: IOHEXOL 350 MG/ML 10 ML VIAL (for RAD DIAG) IVCONTRAST ONE (23:35)
--- NOTE | 2017-05-02 23:47 | RADRPT ---
EXAM DATE/TIME: 05/02/2017 23:06 [facility] COMPARISON: No previous studies available for comparison. INDICATIONS : Abdominal pain for five days. IV CONTRAST: 75 cc Omnipaque 350 (iohexol) IV ORAL CONTRAST: Partial prescribed oral contrast ingested. RADIATION DOSE: 4.88 CTDIvol (mGy) MEDICAL HISTORY : Crohn's disease. Pancreatitis. Gastroesophageal reflux disease.Hiatal hernia SURGICAL HISTORY : Colon resection. ENCOUNTER: Initial ACUITY: 4 - 6 days PAIN SCALE: 8/10 LOCATION: Bilateral upper quadrant lower quadrant TECHNIQUE: Volumetric scanning of the abdomen and pelvis was performed. Using automated exposure control and ad justment of the mA and/or kV according to patient size, radiation dose was kept as low as reasonably achievable to obtain optimal diagnostic quality images. DICOM format image data is available electro nically for review and comparison. FINDINGS: LOWER LUNGS: The visualized lower lungs are clear. LIVER: Homogeneous density without lesion. There is no dilation of the biliary tree. No calcified gallston es. SPLEEN: Mildly enlarged without lesion. PANCREAS: Within normal limits. KIDNEYS: Normal in size and shape. There is no mass, stone or hydronephrosis. Several nonobstructing renal ca lculi in on the right measuring 4 and 5 mm. ADRENAL GLANDS: Within normal limits. VASCULAR: There is no aortic aneurysm. BOWEL/MESENTERY: Wall thickening involving multiple distal small bowel loops including distal and terminal ileum small amount of abdominal ascites. There is no free intraperitoneal air . Enlarged mesenteric lymph nodes again seen. ABDOMINAL WALL: Within normal limits. RETROPERITONEUM: There is no lymphadenopathy. BLADDER: No wall thickening or mass. REPRODUCTIVE: Within normal limits. INGUINAL: Right inguinal hernia containing fluid. There is no lymphadenopathy or hernia on the left. MUSCULOSKELETAL: Within normal limits for patient age. CONCLUSION: 1. Nonobstructing right-sided renal calculi measuring 4-5 mm. 2. Small abdominal ascites. 3. Wall thickening involving multiple distal small bowel loops which can be seen with patient's known diagnosis of Crohn's. 4. Spleen mildly enlarged. 5. Mesenteric lymph nodes are again seen and unchanged. Mauricio Archibald MD on May 02, 2017 at 23:37 Board Certified Radiologist. This report was verified electronically.
[2017-05-03] VITALS (8 sets, daily range): BP systolic 96–120; BP diastolic 54–67; PULSE 80–104; RESP 16–18; TEMP 96.4–98.7; O2SAT 94–98
[2017-05-03] MEDS ORDERED: MORPHINE SULFATE 4 MG/ML INJ IV PUSH ONE (00:15)
[2017-05-03] MEDS ORDERED: NALOXONE HCL 0.4 MG/ML AMP IV PUSH PRN (01:00)
[2017-05-03] MEDS ORDERED: PIPERACIL-TAZO 4.5 GM PREMIX 100 ML IV SCH (01:00)
[2017-05-03] MEDS ORDERED: Vancomycin Consult Pharmacy 1 EA OTHER SCH (01:00)
[2017-05-03] MEDS ORDERED: SODIUM CHLORIDE 0.9% FLUSH 10 ML FLUSH IV FLUSH PRN (01:00)
[2017-05-03] MEDS ORDERED: POTASSIUM CHLORIDE 20 MEQ CONTROLLED RELEASE TAB PO ONE (01:15)
[2017-05-03] MEDS: POTASSIUM CHLOR 20 MEQ PREMIX 100 ML IV SCH ×2 (01:33→04:39)
[2017-05-03] MEDS: SODIUM CHLOR 0.9% 1000 ML INJ 1,000 ML IV SCH ×5 (01:39→21:09)
[2017-05-03 03:12] LABS: BLOOD, URINE LARGE (NEG); GLUCOSE,URINE NEG (NEG); KETONE, URINE NEG (NEG); NITRITE,URINE NEG (NEG); PH, URINE 6.5 (5.0-8.5)
[2017-05-03 03:19] LABS: URINE COLOR YELLOW (YELLW/STRAW)
[2017-05-03 03:20] LABS: CALCIUM OXALATE CRYSTALS,URINE OCC /hpf; MUCUS URINE FEW /lpf (OCC); SQUAMOUS EPITHELIAL CELL URINE 0-5 /hpf (0-5)
[2017-05-03 03:22] LABS: COMMENT (UR) CULT NOT INDICATED; CULTURE IF INDICATED CULT NOT INDICATED
[2017-05-03] MEDS: SODIUM CHLORIDE 0.9% FLUSH 10 ML FLUSH IV FLUSH PRN ×2 (05:07→06:28)
[2017-05-03] MEDS: MORPHINE SULFATE 2 MG/ML INJ IV PUSH PRN ×3 (06:26→13:25)
[2017-05-03] MEDS: SODIUM CHLORIDE 0.9% FLUSH 10 ML FLUSH IV FLUSH SCH ×2 (08:31→21:07)
[2017-05-03] MEDS: PIPERACIL-TAZO 4.5 GM PREMIX 100 ML IV SCH ×3 (08:33→21:08)
[2017-05-03] MEDS: LACTOBACILLUS ACIDOPHILUS TAB PO SCH ×3 (08:33→16:42)
[2017-05-03 08:41] LABS: AUTOMATED NEUTROPHIL # 12.9 TH/MM3 (1.8-7.7); BASOPHIL # 0.1 TH/MM3 (0-0.2); BASOPHIL % 0.7 % (0.0-2.0); EOSINOPHIL # 0.3 TH/MM3 (0-0.4); EOSINOPHIL % 1.7 % (0.0-4.0); HEMATOCRIT 25.4 % (39.0-51.0); HEMO FLAGS DIFF FINAL; LYMPH % 9.7 % (9.0-44.0); LYMPHOCYTE # 1.6 TH/MM3 (1.0-4.8); MEAN CELL VOLUME 89.7 FL (80.0-100.0); MEAN CORPUSCULAR HEMOGLOBIN 29.3 PG (27.0-34.0); MEAN CORPUSCULAR HGB CONC 32.6 % (32.0-36.0); MONO % 6.8 % (0.0-8.0); NEUT % 81.1 % (16.0-70.0); PLATELET COUNT 113 TH/MM3 (150-450); RED BLOOD COUNT 2.83 MIL/MM3 (4.50-5.90); RED CELL DISTRIBUTION WIDTH 17.6 % (11.6-17.2)
[2017-05-03 08:57] LABS: BICARBONATE 23.6 MEQ/L (21.0-32.0); MAGNESIUM 1.6 MG/DL (1.5-2.5); POTASSIUM 3.7 MEQ/L (3.5-5.1)
[2017-05-03 09:11] LABS: CALCIUM-PROTEIN CORRECTED 8.3 MG/DL (8.5-10.1)
--- NOTE | 2017-05-03 11:42 | HHI.HP ---
HPI Service [facility] Primary Care Physician No Primary Care Physician Admission Diagnosis finger cellulitis, leukocytosis, hypokalemia, abdominal pain Diagnoses: (1) Sepsis Diagnosis: Principal (2) Cellulitis of finger of right hand Diagnosis: Principal (3) Leukocytosis Diagnosis: Principal (4) Intractable abdominal pain Diagnosis: Principal Chief Complaint: Abdominal pain Travel History International Travel<30 Days: No Contact w/Intl Traveler <30 Da: No Traveled to Known Affected Are: No Sepsis Criteria SIRS Criteria (2 or more): Heart rate over 90, WBC > 11898, < 4000 or > 10% bands Sepsis Criteria (SIRS+source): Infect source susp/known History of Present Illness Written by Delfino Varner, acting as scribe for Dr. Overton on 05/03/17 at 11:22. While this is a 52-year-old male who is admitted sepsis 2 to suspected finger cellulitis, he actually presented to the ER due to worsening of his chronic abdominal pain and being unable to secure an outpatient appointment with gastroenterology. Pt reports a history of Crohn disease, chronic affective pulmonary disease, cirrhosis, history of pancreatitis, anxiety disorder who. Says that his abd pain has been present for a year but has progressed in frequency from intermittent to chronic and intensified in severity; and is diffuse all over. Says since the last 2 months he has been trying to get into an outpatient clinic visit with electric meter installer helper but hasn' t been able to. Reports having some bright red blood on the napkin while wiping and reports seeing one episode of streaky red blood on his stool, but denies any arron droplets; no tarry stools. He states that his pain is secondary to Crohn's disease which he claims he was diagnosed with when he was in his 20s and said he had Dr. Lane do a colonoscopy upon him at that time and did some sort of partial colon resection due to having a "rotted" colon. He was just recently admitted to the hospital on April 09, 2017 and discharge in April 13, 2017 for similar symptoms. Patient was prescribed Tylenol No. 3, Lasix, prednisone, Pentasa, Protonix, MiraLAX, potassium upon discharge. Patient has ran out of his medications 2 weeks ago and over the last 5 days he states that his pain has been progressively getting worse at 9/10 on a pain scale. He states that when he took the pain medication it did help enough to where he could work. Patient was supposed follow-up with outpatient electric meter installer helper. It appears the patient has been given samples of the Pentasa in order to continue taking the medications. Patient states that he no longer wants to go to a GI physician. He has an appt finally scheduled with Dr. Lane. He states that he has appointment at the end of this month. Because his abdominal pain was worsening he came to the hospital for evaluation. Patient had workup performed and patient was found to have erythema and edema of his right hand second digit. X-rays were performed which were unremarkable. Patient states that he injured his finger over 2 weeks ago when he was painting around a sports. He believes that he may have got a splinter. He states that is significantly improved from what it had been. Because of the patient's cellulitis, leukocytosis is recommended that the patient be admitted for further evaluation and management. Review of Systems Constitutional: COMPLAINS OF: Change in appetite Gastrointestinal: COMPLAINS OF: Abdominal pain, Bloody stools (intermittent pink coloration on total of paper), Diarrhea (stool consistency varies from liquid to soft) Integumentary: COMPLAINS OF: Abnormal pigmentation Except as stated in HPI: all other systems reviewed are Neg Past Family Social History Past Medical History Crohn's disease Chronic obstructive pulmonary disease Chronic tobacco use History of pancreatitis History of alcohol abuse Cirrhosis Anxiety Depression Past Surgical History Tonsillectomy Partial colectomy secondary Crohn's disease Reported Medications Reported Meds & Active Scripts Active Tylenol-Codeine #3 (Acetaminophen-Codeine) 300-30 mg Tab 1 Tab PO Q4H PRN 20 Days Lasix (Furosemide) 20 Mg Tab 20 Mg PO DAILY Prednisone 20 Mg Tab 20 Mg PO BID Miralax Powder (Polyethylene Glycol 3350 Powder) 17 Gm Powd 17 Gm PO DAILY Mix and dissolve one measuring cap-ful (17 grams) in water or juice. Pantoprazole (Pantoprazole Sodium) 40 Mg Tab 40 Mg PO DAILY K-Tab (Potassium Chloride) 20 Meq Tab 1 Tab PO BID Pentasa (Mesalamine) 250 Mg Caper 1,000 Mg PO BID 30 Days Allergies: Coded Allergies: tetanus toxoid, adsorbed (Unverified Allergy, Severe, Nausea/Vomiting, ) Family History Reviewed is significant for colitis Social History Patient continues to smoke one pack a cigarettes a day since she was 23 years old. Patient states that he has quit using alcohol. Denies any illicit drugs Physical Exam Vital Signs Vital Signs Date Time Temp Pulse Resp B/P (MAP) Pulse Ox O2 Delivery O2 Flow Rate FiO2 05/03/17 08:00 97.7 92 18 99/59 (72) 96 05/03/17 05:00 96.4 81 18 100/60 (73) 98 05/03/17 04:41 80 18 94 05/03/17 04:40 80 18 96/67 (77) 94 Room Air 05/03/17 03:00 84 18 98/60 (73) 94 Room Air 05/03/17 00:43 90 18 96/57 (70) 94 Room Air 05/02/17 22:47 97 18 96/63 (74) 94 Room Air 05/02/17 21:17 94 05/02/17 21:14 18 05/02/17 20:53 98.2 112 18 109/57 (74) 93 Physical Exam GENERAL: Well-developed, thin, in no acute distress. alert and orientated HE: Head is normocephalic without any lesions or masses noted. Facial features are symmetric. Eyes: . Extraocular muscles are intact. Conjunctivae were clear. ENT: Oropharyngeal: Pharynx without any erythema edema. Tongue is midline without deviation. Buccal mucosa is moist without any masses or lesions NECK: Supple without any masses. Trachea midline no deviation. No JVD CARDIAC: Regular rhythm, regular rate. S1/S2 are heard. No murmurs gallops or rubs. LUNGS: Clear to auscultation bilaterally. No wheeze, rhonchi or rales. No use of accessory muscles on inspiration or expiration. ABDOMEN: Soft, mild diffuse abdominal soreness. Nondistended. Bowel sounds heard in all 4 quadrants. No organomegaly or masses. Negative rebound, negative guarding EXTREMITIES: No edema, pulses are equal bilaterally. No cyanosis or clubbing, patient has multiple skin excoriations, discolorations, scratches, bruises. NEUROLOGY: No facial droop, no slurred speech, no tremors Psychiatry: Mood and affect appear appropriate. RIGHT HAND: Second digit shows edema and erythema noted from MCP joint all way to the end of the finger. He does have multiple scratches, puncture wounds. There is pain on palpation of the PIP joint. No obvious fluctuations or exudates Laboratory Laboratory Tests Test 05/02/17 21:30 05/02/17 22:30 05/03/17 03:00 05/03/17 07:52 White Blood Count 20.0 16.0 Red Blood Count 2.85 2.83 Hemoglobin 8.6 8.3 Hematocrit 25.8 25.4 Mean Corpuscular Volume 90.3 89.7 Mean Corpuscular Hemoglobin 30.2 29.3 Mean Corpuscular Hemoglobin Concent 33.4 32.6 Red Cell Distribution Width 17.5 17.6 Platelet Count 144 113 Mean Platelet Volume 7.4 8.6 Neutrophils (%) (Auto) 79.3 81.1 Lymphocytes (%) (Auto) 11.9 9.7 Monocytes (%) (Auto) 6.8 6.8 Eosinophils (%) (Auto) 1.1 1.7 Basophils (%) (Auto) 0.9 0.7 Neutrophils # (Auto) 15.8 12.9 Lymphocytes # (Auto) 2.4 1.6 Monocytes # (Auto) 1.4 1.1 Eosinophils # (Auto) 0.2 0.3 Basophils # (Auto) 0.2 0.1 CBC Comment DIFF FINAL DIFF FINAL Differential Comment Prothrombin Time 13.8 Prothromb Time International Ratio 1.2 Activated Partial Thromboplast Time 26.6 Blood Urea Nitrogen 14 13 Creatinine 0.70 0.52 Random Glucose 93 76 Total Protein 5.6 5.0 Albumin 2.4 Calcium Level 7.7 7.2 Alkaline Phosphatase 145 Aspartate Amino Transf (AST/SGOT) 29 Alanine Aminotransferase (ALT/SGPT) 35 Total Bilirubin 0.6 Sodium Level 139 139 Potassium Level 2.4 3.7 Chloride Level 106 109 Carbon Dioxide Level 22.2 23.6 Anion Gap 11 6 Estimat Glomerular Filtration Rate 118 167 Lipase 536 Lactic Acid Level 2.3 Urine Color YELLOW Urine Turbidity SLIGHT Urine pH 6.5 Urine Specific [place] GREATER THAN 1.035 Urine Protein TRACE Urine Glucose (UA) NEG Urine Ketones NEG Urine Occult Blood LARGE Urine Nitrite NEG Urine Bilirubin NEG Urine Leukocyte Esterase NEG Urine RBC 50-99 Urine WBC 3-5 Urine Squamous Epithelial Cells 0-5 Urine Calcium Oxalate Crystals OCC Urine Mucus FEW Microscopic Urinalysis Comment CULT NOT INDICATED Magnesium Level 1.6 Protein Corrected Calcium 8.3 Date/Time Source Procedure Growth Status 05/02/17 22:30 Blood Peripheral Aerobic Blood Culture - Preliminary NO GROWTH IN 1 DAY Resulted 05/02/17 22:30 Blood Peripheral Anaerobic Blood Culture - Preliminary NO GROWTH IN 1 DAY Resulted Result Diagram: 05/03/17 0752 05/03/17 0752 Imaging Last Impressions Abdomen/Pelvis CT 05/02/175 Signed Impressions: Service Date/Time: Tuesday, May 02, 2017 23:06 - CONCLUSION: 1. Nonobstructing right-sided renal calculi measuring 4-5 mm. 2. Small abdominal ascites. 3. Wall thickening involving multiple distal small bowel loops which can be seen with patient's known diagnosis of Crohn's. 4. Spleen mildly enlarged. 5. Mesenteric lymph nodes are again seen and unchanged. Mauricio Archibald MD Finger X-Ray 05/02/17 0000 Signed Impressions: Service Date/Time: Tuesday, May 02, 2017 21:37 - CONCLUSION: There is no evidence for a radiopaque foreign body for technique. Jewell Catalan MD Chest X-Ray 05/02/17 0000 Signed Impressions: Service Date/Time: Tuesday, May 02, 2017 21:37 - CONCLUSION: No acute cardiopulmonary disease. Jewell Catalan MD Septic Shock Reassessment Heart: Regular rate and rhythm Lungs: Clear Skin: Warm, [place] Peripheral Pulses: Bounding Right Radial Bounding Left Radial Caprini VTE Risk Assessment Caprini VTE Risk Assessment: Mod/High Risk (score >= 2) Caprini Risk Assessment Model Point Value = 1 Point Value = 2 Point Value = 3 Point Value = 5 Age 41-60 Minor surgery BMI > 25 kg/m2 Swollen legs Varicose veins or History of unexplained or recurrent spontaneous Oral contraceptives or hormone replacement Sepsis (< 1 month) Serious lung disease, including pneumonia (< 1 month) Abnormal pulmonary function Acute myocardial infarction Congestive heart failure (< 1 month) History of inflammatory bowel disease Medical patient at bed rest Age 61-74 Arthroscopic surgery Major open surgery (> 45 min) Laparoscopic surgery (> 45 min) Malignancy Confined to bed (> 72 hours) Immobilizing plaster cast Central venous access Age >= 75 History of VTE Family history of VTE Factor V Leiden Prothrombin [id number] Lupus anticoagulant Anticardiolipin antibodies Elevated serum homocysteine Heparin-induced thrombocytopenia Other congenital or acquired thrombophilia Stroke (< 1 month) Elective arthroplasty Hip, pelvis, or leg fracture Acute spinal cord injury (< 1 month) Prophylaxis Regimen Total Risk Factor Score Risk Level Prophylaxis Regimen 0-1 Low Early ambulation 2 Moderate Order ONE of the following: *Sequential Compression Device (SCD) *Heparin 5000 units SQ BID 3-4 Higher Order ONE of the following medications: *Heparin 5000 units SQ TID *Enoxaparin/Lovenox 40 mg SQ daily (WT < 150 kg, CrCl > 30 mL/min) *Enoxaparin/Lovenox 30 mg SQ daily (WT < 150 kg, CrCl > 10-29 mL/min) *Enoxaparin/Lovenox 30 mg SQ BID (WT < 150 kg, CrCl > 30 mL/min) AND/OR *Sequential Compression Device (SCD) 5 or more Highest Order ONE of the following medications: *Heparin 5000 units SQ TID (Preferred with Epidurals) *Enoxaparin/Lovenox 40 mg SQ daily (WT < 150 kg, CrCl > 30 mL/min) *Enoxaparin/Lovenox 30 mg SQ daily (WT < 150 kg, CrCl > 10-29 mL/min) *Enoxaparin/Lovenox 30 mg SQ BID (WT < 150 kg, CrCl > 30 mL/min) AND *Sequential Compression Device (SCD) Assessment and Plan Assessment and Plan Sepsis Patient meets criteria with leukocytosis, tachycardia, lactic acidosis, 2/2 cellulitis of the right hand second digit Patient does have a history of MRSA infection Patient started on vancomycin, Zosyn and IVFs Continue follow blood cultures Right hand second digit cellulitis Continue antibiotics as above X-ray independently reviewed by Dr. Overton does not indicate any acute abnormality except for soft tissue swelling Consider MRI to evaluate for osteomyelitis Consult hand specialist for further recommendations Elevated lipase likely 2/2 colitis not pancreatitis Monitor lipase level Leukocytosis, improving Could be secondary to infection versus recent steroid use Continue monitor CBC Hypokalemia Secondary to Patient continued to take Lasix without potassium replacement Continue monitor replete as needed Chronic abdominal pain secondary to Crohn's disease Continue home medications and starting steroids again. Continue pain control. Consulting GI for crohn's eval. Unable to get plugged with GI as outpatient. DVT prevention Sequential compression devices, avoid chemical prophylaxis secondary hx of intermittent bright red blood and control paper. Will need heparin otherwise once stable. This note was transcribed by usha Varner. Rory Beaver, personally performed the history, physical exam, and medical decision making; and confirmed the accuracy of information in the transcribed note. Authenticated by Rory Overton on 05/03/17 at 1150. Physician Certification 2 Midnight Certification Type: Admission for Inpatient Services Order for Inpatient Services The services are ordered in accordance with Medicare regulations or non- Medicare payer requirements, as applicable. In the case of services not specified as inpatient-only, they are appropriately provided as inpatient services in accordance with the 2-midnight benchmark. Estimated LOS (days): 3 days is the estimated time the patient will need to remain in the hospital, assuming treatment plan goals are met and no additional complications. Post-Hospital Plan: Not yet determined Problem Qualifiers (1) Leukocytosis: Qualified Codes: D72.829 - Elevated white blood cell count, unspecified Delfino Varner May 03, 2017 11:42 Rory Overton MD May 03, 2017 16:24
[2017-05-03] MEDS: MESALAMINE 250 MG CAP PO SCH ×2 (12:28→21:08)
[2017-05-03] MEDS: PANTOPRAZOLE SOD 40 MG DELAYED RELEASE TAB PO SCH (12:28)
[2017-05-03] MEDS: POTASSIUM CHLORIDE 20 MEQ CONTROLLED RELEASE TAB PO SCH ×2 (12:29→21:08)
[2017-05-03] MEDS: VANCOMYCIN INJ 750 MG in SODIUM CHLOR 0.9% 250 ML INJ 250 ML IV SCH ×2 (12:29→23:02)
[2017-05-03] MEDS ORDERED: GADODIAMIDE PF 287 MG/ML 10 ML VIAL (for RAD MRI) IV PUSH ONE (16:10)
[2017-05-03] MEDS ORDERED: SODIUM CHLOR 0.9% 1000 ML INJ 1,000 ML IV ONE ×2 (16:30)
[2017-05-03] MEDS: ACETAMINOPHEN/CODEINE 300 MG/30 MG TAB PO PRN ×2 (16:42→22:31)
[2017-05-03] MEDS ORDERED: predniSONE 50 MG TAB PO SCH (17:00)
--- NOTE | 2017-05-03 17:25 | RADRPT ---
EXAM DATE/TIME: 05/03/2017 15:55 [facility] COMPARISON: No previous studies available for comparison. INDICATIONS : Osteomyelitis. Pain and swelling distal rt index finger. CONTRAST: 9 cc Omniscan (gadodiamide) IV MEDICAL HISTORY : Crohn's disease. SURGICAL HISTORY : Colectomy. ENCOUNTER: Initial ACUITY: 2 day PAIN SCORE: 4/10 LOCATION: Right index finger TECHNIQUE: Multiplanar, multisequence MRI examination was performed without contrast and after the intravenous a dministration of gadolinium. FINDINGS: There is diffuse soft tissue swelling of the entire 2nd digit about the phalanges. On the postcontra st images, there is diffuse enhancement in the soft tissues. There is some fluid surrounding the ext ensor tendons but no intrinsic signal within the extensor tendons. Flexor tendons are intact. The s ignal in the marrow of the middle and proximal phalanges is maintained and no evidence of T1 prolonga tion or contrast enhancement. The distal tuft of the distal phalanx, there is a focal area of enhanc ement seen on the axial images, but this is not confirmed on the coronal images. No abnormal signal on T2 weighted images. CONCLUSION: Findings are characteristic of diffuse cellulitis of the 2nd digit with out significant signal abnorm ality in the osseous structures. The only questionable osseous abnormality is in the tuft of the 2nd distal phalanx, this is only seen on axial images. Lalo Heard MD on May 03, 2017 at 17:18 Board Certified Radiologist. This report was verified electronically.
[2017-05-03] MEDS ORDERED: MORPHINE SULFATE 2 MG/ML INJ IV PUSH ONE (22:30)
[2017-05-04] VITALS: BP 108/55; PULSE 97; RESP 16; TEMP 98.8; O2SAT 96
--- NOTE | 2017-05-04 00:59 | PD.ORT.PN ---
Subjective Subjective Remarks Patient reports some improvement Right index finger but persistent erythema, swelling, and mallet deformity. Please see dictated note for full details Objective Vitals Vital Signs Date Time Temp Pulse Resp B/P (MAP) Pulse Ox O2 Delivery O2 Flow Rate FiO2 05/03/17 20:00 98.7 98 16 101/62 (75) 95 05/03/17 16:00 98.1 104 18 120/66 (84) 96 05/03/17 12:00 97.4 87 18 99/54 (69) 96 05/03/17 08:00 90 05/03/17 08:00 97.7 92 18 99/59 (72) 96 05/03/17 05:00 96.4 81 18 100/60 (73) 98 05/03/17 04:41 80 18 94 05/03/17 04:40 80 18 96/67 (77) 94 Room Air 05/03/17 03:00 84 18 98/60 (73) 94 Room Air I/O 05/03/17 05/03/17 05/03/17 05/04/17 05/04/17 05/04/17 07:00 15:00 23:00 07:00 15:00 23:00 Intake Total 950 ml 957.5 ml 1100 ml Output Total 300 ml 500 ml Balance 950 ml 657.5 ml 600 ml Intake IV Total 950 ml 957.5 ml 1100 ml Output Urine Total 300 ml 500 ml # Voids 2 # Bowel Movements 0 Result Diagram: 05/03/17 0752 05/03/17 0752 Imaging Last 24 hours Impressions Hand MRI 05/03/17 9329 Signed Impressions: Service Date/Time: Wednesday, May 03, 2017 15:55 - CONCLUSION: Findings are characteristic of diffuse cellulitis of the 2nd digit with out significant signal abnormality in the osseous structures. The only questionable osseous abnormality is in the tuft of the 2nd distal phalanx, this is only seen on axial images. Lalo Heard MD Objective Remarks erythema right index middle phalanx, mallet deformity right index DIP joint, function intact fdp/fds, sitlt radial & ulnar sides, <2 sec capillary refill, no pain with ROM PIP joint, fluctuance over middle phalanx Assessment & Plan Assessment and Plan 52yM pmhx chrons w 2 weeks erythema and extensor lag right index finger -Initially was planning potential OR 05/03 but patient not compliant with NPO -Patient also on high dose prednisone. Was then considering OR 05/04 but with high dose prednisone will likely attempt bedside aspiration 05/04 & continued IV Ab -May consider OR on 05/05 but concerned about wound healing due to high dose prednisone -Will continue to follow Lili Kim MD May 04, 2017 00:59
[2017-05-04] MEDS: PIPERACIL-TAZO 4.5 GM PREMIX 100 ML IV SCH ×4 (02:00→20:17)
[2017-05-04] MEDS: ACETAMINOPHEN/CODEINE 300 MG/30 MG TAB PO PRN ×3 (05:11→20:18)
[2017-05-04 06:14] LABS: AUTOMATED NEUTROPHIL # 11.2 TH/MM3 (1.8-7.7); BASOPHIL % 0.2 % (0.0-2.0); EOSINOPHIL % 0.1 % (0.0-4.0); HEMATOCRIT 23.2 % (39.0-51.0); HEMO FLAGS DIFF FINAL; LYMPHOCYTE # 0.5 TH/MM3 (1.0-4.8); MEAN CELL VOLUME 89.7 FL (80.0-100.0); MEAN CORPUSCULAR HGB CONC 32.3 % (32.0-36.0); MONO % 1.9 % (0.0-8.0); NEUT % 93.8 % (16.0-70.0); PLATELET COUNT 100 TH/MM3 (150-450); RED BLOOD COUNT 2.58 MIL/MM3 (4.50-5.90); RED CELL DISTRIBUTION WIDTH 17.5 % (11.6-17.2); WHITE BLOOD COUNT 11.9 TH/MM3 (4.0-11.0)
[2017-05-04 06:20] LABS: POTASSIUM 3.7 MEQ/L (3.5-5.1)
[2017-05-04 06:52] LABS: BICARBONATE 18.8 MEQ/L (21.0-32.0)
[2017-05-04 08:00] VITALS: BP 112/72; PULSE 87; RESP 20; TEMP 96.5; O2SAT 100
--- NOTE | 2017-05-04 08:50 | HHI.PR ---
Subjective Remarks spoke to ortho this AM, agreed to stop steroids since I feel that finger issue is more acute and pressing over chronic abd/crohn's, will STOP PREDNISONE for now and plan for OR in AM on 05/05. Patient himself says he feels overall worse with his abdominal pain today compared to yesterday. Says he has been able to tolerate his dinner last night and breakfast this morning. Objective Vital Signs Date Time Temp Pulse Resp B/P (MAP) Pulse Ox O2 Delivery O2 Flow Rate FiO2 05/04/17 08:00 96.5 87 20 112/72 (85) 100 05/04/17 00:00 98.8 97 16 108/55 (72) 96 05/03/17 20:00 98.7 98 16 101/62 (75) 95 05/03/17 16:00 98.1 104 18 120/66 (84) 96 05/03/17 12:00 97.4 87 18 99/54 (69) 96 I/O 05/03/17 05/03/17 05/03/17 05/04/17 05/04/17 05/04/17 07:00 15:00 23:00 07:00 15:00 23:00 Intake Total 950 ml 957.5 ml 2100 ml 950 ml Output Total 300 ml 500 ml 600 ml Balance 950 ml 657.5 ml 1600 ml 350 ml Intake IV Total 950 ml 957.5 ml 2100 ml 950 ml Output Urine Total 300 ml 500 ml 600 ml # Voids 2 # Bowel Movements 0 0 Result Diagram: 05/04/17 0550 05/04/17 0550 Objective Remarks Mild diffuse abdominal soreness, positive bowel sounds, nondistended Awake and alert, sitting in bed right hand appears relatively unchanged since yesterday diffuse erythema and w/ flexed distal phalanx; able to passively extend his DIP w/ no pain A/P Assessment and Plan Sepsis component resolved F/u blood cultures , tx for source of cellulitis Right hand second digit cellulitis Continue vanc and zoysn as above, d/w hand surgery, plan for or possibly tomorrow with steroids discontinued transiently. Hypokalemia Secondary to Patient continued to take Lasix without potassium replacement Continue monitor replete as needed Chronic abdominal pain secondary to Crohn's disease Continue home medications. Continue pain control. Consulting GI for crohn's eval. Avoid steroids for now given potential OR in AM. DVT prevention Sequential compression devices. Will give one dose of lovenox tonight, resume dosing postop. Rory Overton MD May 04, 2017 08:50
[2017-05-04] MEDS ORDERED: POLYETHYLENE GLYCOL 17 GM PKG PO SCH (09:00)
[2017-05-04] MEDS: SODIUM CHLOR 0.9% 1000 ML INJ 1,000 ML IV SCH ×3 (09:07→22:52)
[2017-05-04] MEDS: MESALAMINE 250 MG CAP PO SCH ×2 (09:07→20:17)
[2017-05-04] MEDS: LACTOBACILLUS ACIDOPHILUS TAB PO SCH ×3 (09:07→16:41)
[2017-05-04] MEDS: NICOTINE 21 MG/24 HR PATCH T-DERMAL SCH (09:07)
[2017-05-04] MEDS: PANTOPRAZOLE SOD 40 MG DELAYED RELEASE TAB PO SCH (09:08)
[2017-05-04] MEDS: SODIUM CHLORIDE 0.9% FLUSH 10 ML FLUSH IV FLUSH SCH ×2 (09:08→20:50)
[2017-05-04] MEDS: POTASSIUM CHLORIDE 20 MEQ CONTROLLED RELEASE TAB PO SCH ×2 (09:08→20:17)
[2017-05-04] MEDS: FUROSEMIDE 20 MG TAB PO SCH (09:08)
[2017-05-04] MEDS ORDERED: PHARMACY ORDERED LAB ONE (11:45)
[2017-05-04 12:00] VITALS: BP 119/65; PULSE 95; RESP 20; TEMP 97.6; O2SAT 100
[2017-05-04] MEDS: VANCOMYCIN INJ 750 MG in SODIUM CHLOR 0.9% 250 ML INJ 250 ML IV SCH (12:59)
[2017-05-04] MEDS ORDERED: ENOXAPARIN SODIUM 30 MG/0.3 ML SYRINGE SQ ONE (13:45)
[2017-05-04 16:00] VITALS: BP 118/62; PULSE 98; RESP 20; TEMP 97.8; O2SAT 100
--- NOTE | 2017-05-04 19:51 | MB ---
cc: BRAYDEN TAN MD DATE OF CONSULTATION 05/04/[address] Kim REASON FOR CONSULTATION Right index finger swelling. HISTORY OF PRESENT ILLNESS This is a 52-year-old white male who presented to the emergency department on 05/02 with abdominal pain. The patient also complained of pain in his right index finger. He states that he was painting baseboards and other areas in the house when he thinks he may have gotten a splinter into his index finger. He developed pain and swelling and it became more swollen and erythematous around the time when he came into the hospital, complained of abdominal pain. The patient states that he is unable to straighten out his distal right index finger. The finger also has some erythema as well. He was started on intravenous antibiotics and MRI was performed on the index finger and showed diffuse cellulitis of the second digit with no significant signal abnormality in the osseous structures. However, there is questionable osseous abnormality in the tuft of the second distal phalanx. The patient states that he has intense itching of the right index finger. On admission his white count was 20,000 and it is down to 11.9 today. The patient has been taking prednisone. He has underlying history of Crohn's disease. The patient states that the pain level in his index finger is approximately 3/10. PAST MEDICAL HISTORY Crohn's disease, cirrhosis, anxiety disorder, depression, chronic obstructive pulmonary disease, history of pancreatitis, history of alcohol abuse, history of MRSA infection of the right elbow in February 2017, partial colectomy secondary to Crohn's disease. ALLERGIES TETANUS TOXOID. MEDICATIONS 1. Vancomycin. 2. Piperacillin/tazobactam. 3. Protonix. 4. Mesalamine. 5. Potassium chloride. 6. Lactinex. SOCIAL HISTORY The patient smokes a pack of cigarettes a day. Former alcohol user. Denies current alcohol use. No illicit drugs. FAMILY HISTORY Noncontributory. REVIEW OF SYSTEMS Negative 10-point review. The only positive in the review of systems is itching and pain in the right index finger. PHYSICAL EXAMINATION GENERAL: This is a thin, frail appearing male who is in no acute distress. He is awake and alert and oriented. VITAL SIGNS: Temperature 97.8, BP 118/62, respirations 20, heart rate 98. HEENT: Head is atraumatic. Extraocular movements grossly intact, pupils reactive to light without icterus. Oropharynx moist mucosa. No lesions. NECK: Supple without adenopathy. LUNGS: ___ clear breath sounds. HEART: Regular rate and rhythm. No murmurs, rubs or gallops. ABDOMEN: Bowel sounds present, soft, no tenderness appreciated. RECTAL: Not performed. EXTREMITIES: The right index finger is swollen and erythematous particularly from the proximal interphalangeal joint down to the tip of the finger. The finger has a contracture deformity at the distal interphalangeal joint. There is minimal tenderness on palpation and there is positive swelling. The other extremities have no clubbing or cyanosis or edema. SKIN: No diffuse rash. NEURO: No gross focal findings. PSYCHIATRIC: The patient calm and cooperative. LABORATORY DATA WBC 11.9, platelets 100, hemoglobin 7.5, 93% neutrophils, 4% lymphocytes, creatinine 0.73, BUN 10, sodium 140. IMPRESSION 1. Cellulitis of the right index finger. 2. History of MRSA infection of the right elbow in February of 2017. RECOMMENDATIONS 1. Continue the vancomycin for coverage of MRSA. 2. Continue piperacillin/tazobactam for now. 3. Monitor response of the finger to antibiotic treatment. 4. Continue to monitor response to the treatment. Thank you for this consultation. The patient's progress will be monitored. If there is surgical intervention for the finger, a culture should be done to guide antibiotic treatment if there is positive results. Thank you for this consultation. Brayden Tan MD FD/SELMA /5:13 PM /7:28 PM
--- NOTE | 2017-05-04 19:58 | MB ---
cc: RORY OVERTON MD, BEATRICE S. M.D. DATE OF CONSULTATION: 05/04/2017. REASON FOR CONSULTATION: Crohn's disease. Questionable GI bleed. Abdominal pain. REFERRING PHYSICIAN: Dr. Rory Overton. HISTORY OF PRESENT ILLNESS: Mr. Portillo is a 52-year-old gentleman known to our practice from a previous visit to the hospital who came to the emergency room with complaints of pain in the his finger and found to have cellulitis and sepsis. The patient also complains of worsening abdominal pain and questionable GI bleed. He does have a history of Crohn's disease for almost twenty years, liver cirrhosis, most likely secondary to alcohol use and chronic pancreatitis. He has been seen on multiple occasions due to his frequent admissions to the hospital. He is known to be noncompliant to his medication, he claims secondary to financial issues. He was offered multiple appointments in the office but he was unable to keep them. Also he was offered an opportunity to enroll in a research study for Crohn's disease which he declined at this time. During his previous admissions to the hospital, he had extensive workup. He was also seen by general surgery due to his recurrent Crohn's disease in the small intestine and was felt not to be a surgical candidate and medical treatment was recommended. PAST MEDICAL HISTORY: 1. Crohn's disease. 2. COPD. 3. Chronic tobacco use. 4. Pancreatitis. 5. Alcohol abuse. 6. Cirrhosis. 7. Anxiety. 8. Noncompliance. PAST SURGICAL HISTORY: 1. Tonsillectomy. 2. Partial colectomy secondary to Crohn's disease. MEDICATIONS: 1. Tylenol. 2. Lasix. 3. Prednisone. 4. MiraLax. 5. Protonix. 6. Pentasa. ALLERGIES: 1. TETANUS TOXOID. FAMILY HISTORY: Colitis. SOCIAL HISTORY: Continues to smoke one pack of cigarettes per day. Quit using alcohol recently. REVIEW OF SYSTEMS: CONSTITUTIONAL: He denies any weight loss. He does have decreased appetite. He did have some fever and chills prior to his admission. HEAD, EYES, EARS, NOSE, THROAT: No alteration in baseline hearing or visual acuity. PULMONARY: Denies any chest pain. He does have some shortness of breath. GASTROINTESTINAL: As above. GENITOURINARY: Denies any dysuria or hematuria. HEMATOLOGICAL: Denies any history of bleeding disorder. He does have a history of anemia. SKIN: He developed cellulitis of the fingers. NEUROLOGICAL: No history of TIA or CVA kind of symptoms. PHYSICAL EXAMINATION: GENERAL: On clinical exam, he is sitting comfortably in bed at this time in no acute distress. VITAL SIGNS: Temperature is 98.2, pulse 97, blood pressure 96/63, pulse oximetry 94%. HEAD, EYES, EARS, NOSE, THROAT: Pupils equal, round and reactive to light and accommodation. NECK: No jugular venous distention. No lymphadenopathy. CHEST: He has bilateral wheezing. CARDIOVASCULAR: S1-S2 no murmur. ABDOMEN: Abdomen soft and mildly tender in the lower abdomen, nondistended. Bowel sounds are present. 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 No focal signs identified. EXTREMITIES: The second digit shows edema and erythema noted from the MCP joint all the way to the end of the finger. Multiple scratches and puncture wounds. LABORATORY DATA: His hemoglobin is 7.5 and it was 8.6, white count is 11.9, platelets 144,000 and now 100,000. PT/INR 13.8 and 1.2. Alkaline phosphatase 145, total protein 5.6, albumin 2.4, lipase 536. IMAGING STUDIES: The patient had a CT abdomen and pelvis, which showed small ascites, wall thickening involving multiple distal small bowel loops consistent with the patient's history of Crohn's disease and the spleen is enlarged. IMPRESSION: 1. Mr. Portillo is a 53-year-old gentleman with multiple medical problems admitted with cellulitis of the finger and found to have anemia and questionable GI bleed. Crohn's disease noncompliant to medications and lifestyle which were recommended for him. 2. Liver cirrhosis secondary to portal hypertension, most likely secondary to alcohol abuse. 3. Pancreatitis triggered by alcohol abuse. He claims he stopped recently. 4. Anemia secondary to chronic disease. RECOMMENDATIONS: 1. Soft diet. 2. Continue the current medications. 3. Continue antibiotics. 4. Consider switching to IV steroids. 5. Continue Mesalamine. 6. The patient may need evaluation by the community case manager for possible assistance with his medications and his visits to the specialists. Thank you again. We will continue to follow the patient along with you. If further bleeding, may consider endoscopy on an emergency basis but not clinically indicated at this time. Supportive care. MD SAMEER Rabago/NOE /5:42 PM /7:38 PM
[2017-05-04 20:00] VITALS: BP 111/64; PULSE 88; RESP 18; TEMP 98.2; O2SAT 100
[2017-05-04] MEDS: VANCOMYCIN 1,000 MG/NS 250 ML IV SCH ×2 (23:21)
--- NOTE | 2017-05-04 23:29 | PD.ORT.PN ---
Subjective Subjective Remarks Patient reports some improvement Right index finger but persistent erythema, swelling, and mallet deformity. Patient reports he has been taking 20mg prednisone BID at home for the past 6 months Objective Vitals Vital Signs Date Time Temp Pulse Resp B/P (MAP) Pulse Ox O2 Delivery O2 Flow Rate FiO2 05/04/17 20:00 98.2 88 18 111/64 (80) 100 05/04/17 16:00 97.8 98 20 118/62 (80) 100 05/04/17 13:59 18 05/04/17 12:00 97.6 95 20 119/65 (83) 100 05/04/17 08:00 96.5 87 20 112/72 (85) 100 05/04/17 00:00 98.8 97 16 108/55 (72) 96 I/O 05/04/17 05/04/17 05/04/17 05/05/17 05/05/17 05/05/17 07:00 15:00 23:00 07:00 15:00 23:00 Intake Total 950 ml 1640 ml 2900 ml Output Total 600 ml Balance 350 ml 1640 ml 2900 ml Intake Oral 1290 ml 1800 ml IV Total 950 ml 350 ml 1100 ml Output Urine Total 600 ml # Voids 5 8 # Bowel Movements 0 5 5 Result Diagram: 05/04/17 0550 05/04/17 0550 Imaging Last 24 hours Impressions Hand MRI 05/03/17 2329 Signed Impressions: Service Date/Time: Wednesday, May 03, 2017 15:55 - CONCLUSION: Findings are characteristic of diffuse cellulitis of the 2nd digit with out significant signal abnormality in the osseous structures. The only questionable osseous abnormality is in the tuft of the 2nd distal phalanx, this is only seen on axial images. Lalo Heard MD Objective Remarks erythema right index middle phalanx, mallet deformity right index DIP joint, function intact fdp/fds, sitlt radial & ulnar sides, <2 sec capillary refill, no pain with ROM PIP joint, fluctuance over middle phalanx Assessment & Plan Assessment and Plan 52yM pmhx chrons w 2 weeks erythema and extensor lag right index finger -Aspiration right index finger performed under sterile conditions with hope to remove significant amount of fluid. Aspiration yielded thick pus which was sent for culture. Unfortunately due to the thickness of the pus unable to remove significant amount of fluid recommend I&D in OR 05/05. Patient understands he is at extremely high risk for slow healing wound due to the prednisone. I likely will not repair the extensor tendon just debride the infection and place the patient in a mallet splint for possible future intervention of the mallet finger. -NPO at midnight for likely surgical intervention 05/05 @ 2p Lili Kim MD May 04, 2017 23:28
[2017-05-05] VITALS: BP 104/68; PULSE 93; RESP 18; TEMP 98.4; O2SAT 99
[2017-05-05] MEDS: ACETAMINOPHEN/CODEINE 300 MG/30 MG TAB PO PRN ×3 (02:36→20:57)
[2017-05-05] MEDS: PIPERACIL-TAZO 4.5 GM PREMIX 100 ML IV SCH ×4 (02:36→20:53)
[2017-05-05] MEDS: metroNIDAZOLE 500 MG INJ 100 ML IV SCH ×3 (05:50→22:05)
[2017-05-05 08:00] VITALS: BP 110/64; PULSE 85; RESP 18; TEMP 97.8; O2SAT 97
[2017-05-05] MEDS: REMOVE OLD PATCH T-DERMAL SCH (09:00)
[2017-05-05] MEDS: methylPREDNISolone SOD SUCC 40 MG/1 ML VIAL IV PUSH SCH ×2 (09:17→20:55)
[2017-05-05] MEDS: MESALAMINE 250 MG CAP PO SCH ×2 (09:18→20:56)
[2017-05-05] MEDS: PANTOPRAZOLE SOD 40 MG DELAYED RELEASE TAB PO SCH (09:18)
[2017-05-05] MEDS: NICOTINE 21 MG/24 HR PATCH T-DERMAL SCH (09:18)
[2017-05-05] MEDS: LACTOBACILLUS ACIDOPHILUS TAB PO SCH ×4 (09:19→20:55)
[2017-05-05] MEDS: FUROSEMIDE 20 MG TAB PO SCH (09:19)
[2017-05-05] MEDS: SODIUM CHLORIDE 0.9% FLUSH 10 ML FLUSH IV FLUSH SCH ×2 (09:19→20:54)
[2017-05-05] MEDS: POTASSIUM CHLORIDE 20 MEQ CONTROLLED RELEASE TAB PO SCH ×2 (09:36→20:55)
--- NOTE | 2017-05-05 10:54 | HHI.PR ---
Subjective Remarks Nursing denies any deterioration since last night. Patient apparently had some bedside aspiration done by Dr. Kim. Patient thinks some pus came out but says he never actually saw the actual fluid himself. His plan for OR today, says that the Tylenol 3 isn't taking off enough edge from his abdominal pain. Denies any diarrhea. Objective Vital Signs Date Time Temp Pulse Resp B/P (MAP) Pulse Ox O2 Delivery O2 Flow Rate FiO2 05/05/17 08:00 97.8 85 18 110/64 (79) 97 05/05/17 00:00 98.4 93 18 104/68 (80) 99 05/04/17 20:00 98.2 88 18 111/64 (80) 100 05/04/17 16:00 97.8 98 20 118/62 (80) 100 05/04/17 13:59 18 05/04/17 12:00 97.6 95 20 119/65 (83) 100 I/O 05/04/17 05/04/17 05/04/17 05/05/17 05/05/17 05/05/17 07:00 15:00 23:00 07:00 15:00 23:00 Intake Total 950 ml 1640 ml 2900 ml 710 ml Output Total 600 ml 400 ml Balance 350 ml 1640 ml 2900 ml 310 ml Intake Oral 1290 ml 1800 ml 360 ml IV Total 950 ml 350 ml 1100 ml 350 ml Output Urine Total 600 ml 400 ml # Voids 5 8 # Bowel Movements 0 5 5 Result Diagram: 05/04/17 0550 05/05/17 0630 Objective Remarks Mild diffuse abdominal soreness, positive bowel sounds, nondistended Awake and alert, sitting in bed right hand appears with index finger wrapped in gauze, no exquisite pain elicited with passive flexion of all phalanges or extension A/P Assessment and Plan Right hand second digit cellulitis Continue vanc and zoysn BC NGTD x 2 days, wound culture started, surgical debridement planned today Hypokalemia Secondary to Patient continued to take Lasix without potassium replacement Continue monitor replete as needed Chronic abdominal pain secondary to Crohn's disease Continue home medications. Continue pain control. Continue Flagyl per GI, we'll plan to start steroids sometime after surgical debridement DVT prevention Sequential compression devices. Will give one dose of Lovenox tonight, resume dosing postop. Rory Overton MD May 05, 2017 10:54
[2017-05-05] MEDS: VANCOMYCIN 1,000 MG/NS 250 ML IV SCH ×4 (11:35→14:00)
[2017-05-05 12:00] VITALS: BP 107/67; PULSE 97; RESP 18; TEMP 96.9; O2SAT 99
[2017-05-05] MEDS: SODIUM CHLOR 0.9% 1000 ML INJ 1,000 ML IV SCH ×2 (13:00→22:06)
[2017-05-05] MEDS ORDERED: LIDOCAINE HCL 2% 50 ML VIAL ONE (13:24)
[2017-05-05] MEDS ORDERED: BUPIVACAINE HCL PF 0.5% 30 ML VIAL ONE (13:24)
[2017-05-05] MEDS ORDERED: NEOMYCIN/POLYMYXIN 1 ML G.U. IRRIGANT ONE (13:30)
[2017-05-05] MEDS ORDERED: CHLORHEXIDINE GLUCONATE 2 % 1 PACK (2 CLOTHS) TOPICAL PRN (14:00)
[2017-05-05] MEDS ORDERED: INSULIN HUMAN REGULAR 1,000 UNITS/10 ML VIAL SQ PRN (14:00)
[2017-05-05] MEDS ORDERED: METOPROLOL TARTRATE 25 MG TAB PO PRN (14:00)
[2017-05-05] MEDS ORDERED: SODIUM CHLORID 0.9% 500 ML IV PRN (14:00)
[2017-05-05] MEDS ORDERED: POVIDONE IODINE 5% (ANTISEPSIS KIT) 4 APPLICATIONS EACH NARE PRN (14:00)
[2017-05-05] MEDS ORDERED: LACTATED RINGER'S 1000 ML IV PRN (14:00)
[2017-05-05] MEDS ORDERED: MIDAZOLAM HCL 2 MG/2 ML VIAL ONE (15:43)
[2017-05-05] MEDS ORDERED: MORPHINE SULFATE 8 MG/ML INJ ONE (16:56)
--- NOTE | 2017-05-05 17:21 | PD.ORT.PN ---
Subjective Subjective Remarks Patient reports persistent pain right index finger. Objective Vitals Vital Signs Date Time Temp Pulse Resp B/P (MAP) Pulse Ox O2 Delivery O2 Flow Rate FiO2 05/05/17 13:30 98.1 86 18 96/59 (71) 100 05/05/17 12:00 96.9 97 18 107/67 (80) 99 05/05/17 10:18 18 05/05/17 08:00 97.8 85 18 110/64 (79) 97 05/05/17 00:00 98.4 93 18 104/68 (80) 99 05/04/17 20:00 98.2 88 18 111/64 (80) 100 I/O 05/04/17 05/04/17 05/04/17 05/05/17 05/05/17 05/05/17 07:00 15:00 23:00 07:00 15:00 23:00 Intake Total 950 ml 1640 ml 2900 ml 810 ml 800 ml 300 ml Output Total 600 ml 400 ml Balance 350 ml 1640 ml 2900 ml 410 ml 800 ml 300 ml Intake Oral 1290 ml 1800 ml 360 ml 0 ml IV Total 950 ml 350 ml 1100 ml 450 ml 800 ml 300 ml Output Urine Total 600 ml 400 ml # Voids 5 8 4 # Bowel Movements 0 5 5 2 Result Diagram: 05/04/17 0550 05/05/17 0630 Imaging Last 24 hours Impressions Hand MRI 05/03/17 2329 Signed Impressions: Service Date/Time: Wednesday, May 03, 2017 15:55 - CONCLUSION: Findings are characteristic of diffuse cellulitis of the 2nd digit with out significant signal abnormality in the osseous structures. The only questionable osseous abnormality is in the tuft of the 2nd distal phalanx, this is only seen on axial images. Lalo Heard MD Objective Remarks erythema right index middle phalanx, mallet deformity right index DIP joint, function intact fdp/fds, sitlt radial & ulnar sides, <2 sec capillary refill, no pain with ROM PIP joint, fluctuance over middle phalanx Assessment & Plan Assessment and Plan 52yM pmhx chrons w 2 weeks erythema and extensor lag right index finger aspiration + gram + cocci now POD0 s/p I&D right index finger -Intraoperative purulent drainage sent for culture, extensor tendon not intact, wound loosely closed due to patient being on prednisone -Follow cultures, appreciate ID input -will continue to follow -OT to make splint for DIP extension. Once infection cleared patient may require DIP fusion in the future Lili Kim MD May 05, 2017 17:21
[2017-05-05] MEDS ORDERED: ONDANSETRON HCL 4 MG/2 ML VIAL ONE (17:34)
[2017-05-05] MEDS ORDERED: *HYDROmorphone PF 1 MG VIAL PERIprocedural Use ONLY ONE (17:34)
--- NOTE | 2017-05-05 18:53 | PD.ORT.PN ---
Subjective Subjective Remarks Patient reports persistent pain right index finger. Objective Vitals Vital Signs Date Time Temp Pulse Resp B/P (MAP) Pulse Ox O2 Delivery O2 Flow Rate FiO2 05/05/17 18:00 98.0 78 15 107/71 (83) 99 Room Air 05/05/17 17:45 98.0 78 15 107/78 (88) 99 Room Air 05/05/17 17:30 77 15 108/70 (83) 100 Nasal Cannula 2 05/05/17 17:15 83 16 109/74 (86) 98 Nasal Cannula 2 05/05/17 17:10 83 15 104/74 (84) 98 05/05/17 17:10 83 16 104/74 (84) 98 Nasal Cannula 2 05/05/17 16:55 85 16 100/67 (78) 94 Nasal Cannula 3 05/05/17 16:40 97.9 86 16 97/64 (75) 95 Nasal Cannula 3 05/05/17 13:30 98.1 86 18 96/59 (71) 100 05/05/17 12:00 96.9 97 18 107/67 (80) 99 05/05/17 10:18 18 05/05/17 08:00 97.8 85 18 110/64 (79) 97 05/05/17 00:00 98.4 93 18 104/68 (80) 99 05/04/17 20:00 98.2 88 18 111/64 (80) 100 I/O 05/04/17 05/04/17 05/04/17 05/05/17 05/05/17 05/05/17 07:00 15:00 23:00 07:00 15:00 23:00 Intake Total 950 ml 1640 ml 2900 ml 810 ml 800 ml 1300 ml Output Total 600 ml 400 ml Balance 350 ml 1640 ml 2900 ml 410 ml 800 ml 1300 ml Intake Oral 1290 ml 1800 ml 360 ml 0 ml 1000 ml IV Total 950 ml 350 ml 1100 ml 450 ml 800 ml 300 ml Output Urine Total 600 ml 400 ml # Voids 5 8 4 6 # Bowel Movements 0 5 5 2 3 Result Diagram: 05/04/17 0550 05/05/17 0630 Imaging Last 24 hours Impressions Hand MRI 05/03/17 1499 Signed Impressions: Service Date/Time: Wednesday, May 03, 2017 15:55 - CONCLUSION: Findings are characteristic of diffuse cellulitis of the 2nd digit with out significant signal abnormality in the osseous structures. The only questionable osseous abnormality is in the tuft of the 2nd distal phalanx, this is only seen on axial images. Lalo Heard MD Objective Remarks erythema right index middle phalanx, mallet deformity right index DIP joint, function intact fdp/fds, sitlt radial & ulnar sides, <2 sec capillary refill, no pain with ROM PIP joint, fluctuance over middle phalanx Assessment & Plan Assessment and Plan 52yM pmhx chrons w 2 weeks erythema and extensor lag right index finger aspiration + gram + cocci now POD0 s/p I&D right index finger -Intraoperative purulent drainage sent for culture, extensor tendon not intact, wound loosely closed due to patient being on prednisone -Follow cultures, appreciate ID input -Recommend holding or decreasing prednisone if possible until wound heals -will continue to follow -OT to make splint for DIP extension. Once infection cleared patient may require DIP fusion in the future Lili Kim MD May 05, 2017 18:53
[2017-05-05 20:00] VITALS: BP 110/67; PULSE 90; RESP 20; TEMP 96.8; O2SAT 99
[2017-05-05] MEDS: ACETAMINOPHEN/HYDROcodone 325 MG/5 MG TAB PO PRN (20:57)
[2017-05-06] VITALS: BP 108/60; PULSE 81; RESP 20; TEMP 96.5; O2SAT 99
[2017-05-06] MEDS: VANCOMYCIN 1,000 MG/NS 250 ML IV SCH ×2 (00:58)
[2017-05-06] MEDS: PIPERACIL-TAZO 4.5 GM PREMIX 100 ML IV SCH ×3 (03:01→16:10)
[2017-05-06] MEDS: ACETAMINOPHEN/HYDROcodone 325 MG/5 MG TAB PO PRN ×3 (03:02→16:10)
[2017-05-06] MEDS: ACETAMINOPHEN/CODEINE 300 MG/30 MG TAB PO PRN (03:02)
[2017-05-06] MEDS: metroNIDAZOLE 500 MG INJ 100 ML IV SCH ×2 (05:57→14:17)
[2017-05-06 08:00] VITALS: BP 112/61; PULSE 91; RESP 18; TEMP 96.9; O2SAT 100
[2017-05-06] MEDS: REMOVE OLD PATCH T-DERMAL SCH (09:00)
[2017-05-06] MEDS: methylPREDNISolone SOD SUCC 40 MG/1 ML VIAL IV PUSH SCH (09:39)
[2017-05-06] MEDS: PANTOPRAZOLE SOD 40 MG DELAYED RELEASE TAB PO SCH (09:40)
[2017-05-06] MEDS: POTASSIUM CHLORIDE 20 MEQ CONTROLLED RELEASE TAB PO SCH (09:40)
[2017-05-06] MEDS: MESALAMINE 250 MG CAP PO SCH (09:40)
[2017-05-06] MEDS: FUROSEMIDE 20 MG TAB PO SCH (09:40)
[2017-05-06] MEDS: NICOTINE 21 MG/24 HR PATCH T-DERMAL SCH (09:41)
[2017-05-06] MEDS: SODIUM CHLORIDE 0.9% FLUSH 10 ML FLUSH IV FLUSH SCH (09:42)
[2017-05-06] MEDS: SODIUM CHLOR 0.9% 1000 ML INJ 1,000 ML IV SCH (09:44)
--- NOTE | 2017-05-06 10:21 | HHI.GIFU ---
Subjective Remarks Patient sitting at the edge of the bed comfortably, he only had one bowel movement today which was not watery, mild abdominal discomfort Objective Vitals I&O Vital Signs Date Time Temp Pulse Resp B/P (MAP) Pulse Ox O2 Delivery O2 Flow Rate FiO2 05/06/17 08:00 96.9 91 18 112/61 (78) 100 05/06/17 00:00 96.5 81 20 108/60 (76) 99 05/05/17 20:00 96.8 90 20 110/67 (81) 99 05/05/17 18:15 78 16 109/74 (86) 100 Room Air 05/05/17 18:00 98.0 78 15 107/71 (83) 99 Room Air 05/05/17 17:45 98.0 78 15 107/78 (88) 99 Room Air 05/05/17 17:30 77 15 108/70 (83) 100 Nasal Cannula 2 05/05/17 17:15 83 16 109/74 (86) 98 Nasal Cannula 2 05/05/17 17:10 83 15 104/74 (84) 98 05/05/17 17:10 83 16 104/74 (84) 98 Nasal Cannula 2 05/05/17 16:55 85 16 100/67 (78) 94 Nasal Cannula 3 05/05/17 16:40 97.9 86 16 97/64 (75) 95 Nasal Cannula 3 05/05/17 13:30 98.1 86 18 96/59 (71) 100 05/05/17 12:00 96.9 97 18 107/67 (80) 99 I/O 05/05/17 05/05/17 05/05/17 05/06/17 05/06/17 05/06/17 07:00 15:00 23:00 07:00 15:00 23:00 Intake Total 810 ml 800 ml 2300 ml 1190 ml Output Total 400 ml 400 ml Balance 410 ml 800 ml 2300 ml 790 ml Intake Oral 360 ml 0 ml 1000 ml 240 ml IV Total 450 ml 800 ml 1300 ml 950 ml Output Urine Total 400 ml 400 ml # Voids 4 6 # Bowel Movements 2 3 Laboratory Date/Time Source Procedure Growth Status 05/02/17 22:30 Blood Peripheral Aerobic Blood Culture - Preliminary NO GROWTH IN 3 DAYS Resulted 05/02/17 22:30 Blood Peripheral Anaerobic Blood Culture - Preliminary NO GROWTH IN 3 DAYS Resulted 05/05/17 16:14 Wound Finger Fungal Smear - Final NO FUNGAL ELEMENTS SEEN. Resulted 05/05/17 16:14 Wound Finger Fungal Culture Pending Resulted Physical Exam HEENT: Pupils round and reactive to light; normocephalic; atraumatic; no jaundice. Throat is clear. NECK: Neck is supple, no JVD, no lymphadenopathy. CHEST: Chest is clear to auscultation and percussion. CARDIAC: Regular rate and rhythm with no murmur gallop or rubs. ABDOMEN: Soft, nondistended, mild diffuse tenderness; no hepatosplenomegaly; bowel sounds are present in all four quadrants. EXTREMITIES: No clubbing, cyanosis, or edema. Right thumb cover with dressing from infection SKIN: Normal; no rash; no jaundice. 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 Assessment and Plan Plan Patient has history of Crohn disease, seems to be doing okay with that, we will switch him to oral steroid was started 30 mg taper 10 mg every week Follow up in the office Continue mesalamine Patient has questionable early cirrhosis Off alcohol Carol Whitaker MD May 06, 2017 10:21
[2017-05-06] MEDS ORDERED: PHARMACY ORDERED LAB ONE (11:45)
[2017-05-06 12:00] VITALS: BP 120/70; PULSE 88; RESP 18; TEMP 96.8; O2SAT 100
[2017-05-06 12:56] LABS: C. DIFF EPI 027 PRESUMPTIVE NEGATIVE (NEGATIVE)
[2017-05-06] MEDS: LACTOBACILLUS ACIDOPHILUS TAB PO SCH (14:17)
--- NOTE | 2017-05-06 15:50 | HHI.PR ---
Subjective Remarks Nursing denies any deterioration since last night. Pt wanting to go home. says his finger is better. Objective Vital Signs Date Time Temp Pulse Resp B/P (MAP) Pulse Ox O2 Delivery O2 Flow Rate FiO2 05/06/17 12:00 96.8 88 18 120/70 (87) 100 05/06/17 10:41 18 05/06/17 08:00 96.9 91 18 112/61 (78) 100 05/06/17 00:00 96.5 81 20 108/60 (76) 99 05/05/17 20:00 96.8 90 20 110/67 (81) 99 05/05/17 18:15 78 16 109/74 (86) 100 Room Air 05/05/17 18:00 98.0 78 15 107/71 (83) 99 Room Air 05/05/17 17:45 98.0 78 15 107/78 (88) 99 Room Air 05/05/17 17:30 77 15 108/70 (83) 100 Nasal Cannula 2 05/05/17 17:15 83 16 109/74 (86) 98 Nasal Cannula 2 05/05/17 17:10 83 15 104/74 (84) 98 05/05/17 17:10 83 16 104/74 (84) 98 Nasal Cannula 2 05/05/17 16:55 85 16 100/67 (78) 94 Nasal Cannula 3 05/05/17 16:40 97.9 86 16 97/64 (75) 95 Nasal Cannula 3 I/O 05/05/17 05/05/17 05/05/17 05/06/17 05/06/17 05/06/17 07:00 15:00 23:00 07:00 15:00 23:00 Intake Total 810 ml 800 ml 2300 ml 1190 ml Output Total 400 ml 400 ml Balance 410 ml 800 ml 2300 ml 790 ml Intake Oral 360 ml 0 ml 1000 ml 240 ml IV Total 450 ml 800 ml 1300 ml 950 ml Output Urine Total 400 ml 400 ml # Voids 4 6 # Bowel Movements 2 3 Result Diagram: 05/04/17 0550 05/05/17 0630 Objective Remarks right hand index finger wrapped in gauze abd is soft, mildly TTP, ND A/P Assessment and Plan Right hand second digit cellulitis Continue vanc and zoysn BC NGTD x 2 days, wound culture started, postop #1. Communicated w/ Dr. Kim, wants to keep pt while inpatient. D/w GI, in congruence w/ ortho's preference, will stop steroids for now. Hypokalemia Secondary to Patient continued to take Lasix without potassium replacement Continue monitor replete as needed Chronic abdominal pain secondary to Crohn's disease Continue home medications. Continue pain control. Continue Flagyl per GI, we'll plan to start steroids sometime after surgical debridement DVT prevention Sequential compression devices. resuming heparin. Rory Overton MD May 06, 2017 15:50
[2017-05-06 16:00] VITALS: BP 113/68; PULSE 72; RESP 18; TEMP 97.9; O2SAT 100
[2017-05-06] MEDS ORDERED: HEPARIN SODIUM - SQ 10,000 UNITS/ML VIAL SQ SCH (16:00)
--- NOTE | 2017-05-06 16:53 | MB ---
cc: MERCEDES HERRON DATE OF CONSULTATION: 05/06/2017. REASON FOR CONSULTATION: Swelling, erythema and lack of extension right index finger at the DIP joint. 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 He also has a history of pancreatitis and cirrhosis. He has had difficulty having followup regarding his Crohn's disease. He was recently admitted to the hospital several weeks ago for abdominal pain. The patient believes that approximately two weeks ago he was painting and may have had a splinter of the dorsum of his right index finger. He states that he had worsening swelling over the finger which is actually improved prior to presentation. He states that the inability to extend the index finger at the DIP joint is acute over the past two weeks, and is not chronic. He does take prednisone approximately 40 to 50 mg per day. PAST MEDICAL HISTORY: 1. Crohn's. 2. COPD. 3. Pancreatitis. 4. Alcohol abuse. 5. Cirrhosis. PAST SURGICAL HISTORY: 1. Tonsillectomy. 2. Partial colectomy. MEDICATIONS: 1. Tylenol #3. 2. Lasix. 3. Prednisone. 4. Mesalamine ALLERGIES: TETANUS. SOCIAL HISTORY: The patient smokes one pack per day. Denies any recent alcohol or drug use. PHYSICAL EXAMINATION: VITAL SIGNS: Temperature is 97.7, pulse 80, blood pressure 100/60. Exam of the right index finger shows mild erythema over the dorsum of the middle phalanx. The patient cannot extend the right index finger at the DIP joint. No erythema in the hand or along the flexor tendon sheath. The patient has good range of motion of the PIP joint. Sensation intact on the radial and ulnar sides. Less than 2 second capillary refill. LABS: White count 20, IMAGING STUDIES: X-rays of the finger show no evidence of radiopaque foreign body or fracture. MRI of the hand showed diffuse swelling over the dorsum of the right index finger middle phalanx without any evidence of osteomyelitis, although there is a slight signal in the distal phalanx. The extensor tendon is not intact at the DIP joint. ASSESSMENT AND PLAN: This is a 52-year-old male with past medical history significant for Crohn's on prednisone who presents with two weeks of pain and swelling over the right index finger. The patient states this has actually improved since presentation and while he has been in the hospital on antibiotics. Initially I was considering surgical intervention, but the patient was not compliant with NPO status. Thus, I will check the patient again tomorrow and plan for possible aspiration, possible surgical intervention, although the patient will be at very high risk for wound complications due to his high-dose Prednisone. The infection will have to be addressed first and then the mallet injury. The patient may consider splinting the finger and may eventually require fusion but not in the setting of infection and/or possible extensor tendon repair. I will place the patient NPO and check him again tomorrow. MD DIGNA Pacheco/NOE /4:02 PM /4:33 PM SURESH
--- NOTE | 2017-05-06 19:05 | MP ---
cc: MERCEDES HERRON DATE OF SURGERY 05/04/2017 PREPROCEDURE DIAGNOSIS Abscess dorsum right index finger middle phalanx. POSTPROCEDURE DIAGNOSIS Abscess dorsum right index finger middle phalanx. PROCEDURE IN DETAIL Under sterile condition, the right index finger was prepped in a sterile fashion. An 18 gauge needle was used to aspirate the abscess over the right index finger. This resulted in purulent fluid. Due to the thickness of the fluid, I was only able to get approximately 0.5 mL of fluid which was sent for culture. The patient was placed into a soft dressing. The plan will be for surgical intervention tomorrow pending clearance by the primary team. We will follow the cultures. MD DIGNA Pacheco/ /4:08 PM /6:54 PM [facility]ITAL[facility]gie
--- NOTE | 2017-05-06 19:05 | MP ---
cc: LILI KIM MD DATE OF SURGERY: 05/05/2017. PREOPERATIVE DIAGNOSIS: 1. Abscess, extensor tendon sheath right index finger. 2. Mallet deformity right index finger. POSTOPERATIVE DIAGNOSIS: 1. Abscess, extensor tendon sheath right index finger. 2. Mallet deformity right index finger. OPERATIVE PROCEDURE PERFORMED: 1. Incision and drainage abscess and incision and drainage extensor tendon sheath right index finger. 2. Closed treatment mallet deformity right index finger. SURGEON: Dr. Lili Kim ANESTHESIA: MAC. TOURNIQUET TIME: 19 minutes at 200 mmHg. SPECIMEN: Cultures. INDICATIONS FOR THE PROCEDURE: Goran Portillo is a 52-year-old male with two week history of pain and swelling over the dorsum of the right index finger. Aspiration yielded cultures positive for MRSA. The patient was to proceed with surgical intervention. He understands he is at very high risk for wound complications due to his high-dose prednisone. Unfortunately I was unable to aspirate a significant fluid due to the thickness of the purulence. The patient elects to proceed with surgical intervention, again understanding the risks to include but not be limited to wound complications, infection, need for additional surgeries and he elects to proceed. DESCRIPTION OF THE PROCEDURE IN DETAIL: The patient was identified in the preoperative holding area and the correct extremity was marked. The patient was taken to the operating where anesthesia was induced. The right upper extremity was prepped and draped in normal sterile fashion. Approximately 9 mL of 2% lidocaine with no epinephrine was used to perform local anesthesia over the finger. Then a longitudinal incision was made on the ulnar border of the right index finger middle phalanx. Upon making the incision, there was significant purulence which was sent for culture. The right index finger extensor tendon sheath was irrigated with 3 liters of antibiotic saline. The tendon was noted to be obviously frayed and not intact over the DIP joint. In the face of infection and the high dose steroids, I elected not to perform any sort of repair. The patient may require a fusion of the DIP joint in the future. The wound was closed loosely with chromic. The patient was awoken from anesthesia without any complications. A soft dressing was placed. I will have the therapist make an extension splint which he should wear at all times. Will continue to follow up the cultures and the wound healing. MD NICOLASA Pacheco /4:09 PM /6:57 PM MTDAngie
--- NOTE | 2017-05-08 15:26 | PD.AMA ---
Against Medical Advice Note Discharge Disposition: Against Medical Advice Pt Condition on Discharge: Guarded AMA Statement Patient Goran PortilloJr has decided to leave the hospital against medical advice on 05/06/17. This patient has the capacity to refuse care and understands the risks of leaving, including permanent disability and/or , and has had an opportunity to ask questions about his condition. The patient has been informed that he may return for care at any time, and follow up has been arranged/advised. Rory Overton MD May 08, 2017 15:26
== END 2017-05-06 18:09 | disposition left against medical advice (07) | DRG 854 ==
LOC: PHED 20:49 → PHEDA 05-03 01:01 → PH3A 05-03 04:49
PROVIDERS: ADMIT Hospitalist; ATTEND Hospitalist
PROC: 0H9FXZZ Drainage of Right Hand Skin, External Approach (ICD-10-PCS; 2017-05-04)
PROC: 0L970ZZ Drainage of Right Hand Tendon, Open Approach (ICD-10-PCS; principal; 2017-05-05 15:53)
DX: A41.9 Sepsis, unspecified organism (principal); E87.2 Acidosis; K76.6 Portal hypertension; K70.30 Alcoholic cirrhosis of liver without ascites; K50.00 Crohn's disease of small intestine without complications; K86.0 Alcohol-induced chronic pancreatitis; L03.011 Cellulitis of right finger; E87.6 Hypokalemia; M20.011 Mallet finger of right finger(s); K21.9 Gastro-esophageal reflux disease without esophagitis; J45.909 Unspecified asthma, uncomplicated; J44.9 Chronic obstructive pulmonary disease, unspecified; F32.9 Major depressive disorder, single episode, unspecified; F41.9 Anxiety disorder, unspecified; M19.90 Unspecified osteoarthritis, unspecified site; F17.210 Nicotine dependence, cigarettes, uncomplicated; D63.8 Anemia in other chronic diseases classified elsewhere; G89.29 Other chronic pain; F10.10 Alcohol abuse, uncomplicated; M65.041 Abscess of tendon sheath, right hand; Z91.14 Patient's other noncompliance with medication regimen; Z91.19 Patient's noncompliance with other medical treatment and regimen; Z86.14 Personal history of Methicillin resistant Staphylococcus aureus infection
CPT/HCPCS: 71010; 73140; 73220; 74177; 76937; 80048; 80053; 80202; 81001; 82565; 83605; 83690; 83735; 84155; 85025; 85610; 85730; 86403; 87015; 87040; 87070; 87102; 87116; 87147; 87176; 87186; 87205; 87206; 87493; 96365; 96375; 96376; A9579; J1170; J1650; J2250; J2270; J2405; J2543; J2920; J3370; J3480; J7030; J7050; J7120; J7512; Q9963; Q9967

== ENCOUNTER 2017-05-10 04:49 | Observation (INO) | payer OTHER ==
[~2017-05-10] VITALS: Ht 182.9 cm; Wt 54.6 kg
[2017-05-10 05:03] VITALS: BP 125/65; PULSE 104; RESP 18; TEMP 98.2; O2SAT 98
[2017-05-10] MEDS ORDERED: SODIUM CHLOR 0.9% 1000 ML INJ 1,000 ML IV SCH ×2 (05:36)
--- NOTE | 2017-05-10 05:38 | PD ---
HPI Chief Complaint: Abdominal Pain Time Seen by Provider: 05:38 Travel History International Travel<30 days: No Contact w/Intl Traveler<30days: No Traveled to known affect area: No History of Present Illness HPI 52 year-old male presents to the emergency department for complaint of abdominal pain. Patient has history of Crohn's with exacerbation of abdominal pain 1 year with worsening symptoms over the past 3 months and hospitalization for further of Crohn's in January and April. Patient is undergone partial colectomy in the past by Dr. Lane for diagnosis of inflammatory bowel disease. Patient had appointment with his colorectal surgeon canceled today due to recent diagnosis of MRSA infection of the right index finger. Patient was just hospitalized 05/03/17 for exacerbation of Crohn's and for cellulitis of the index finger. Patient signed out AMA 05/06/17. Patient reports he is "out of [his] meds and needs to be admitted for pain medication". Patient has reportedly been off of antibiotic for 4 days and states he started noticing some diarrhea stools, nonbloody and non-mucoid and not explosive stool over the last 2 days ago; has had flatus. Patient denies fever or chills. Patient's had nausea without vomiting. Patient is unable to identify exacerbating or alleviating factors. Patient is taking Tylenol for symptom relief but without success. Patient rates his pain 9/10 in intensity. PFSH Past Medical History Narrative Medical Crohn's COPD GI bleed ulcer colitis MRSA anxiety depression pancreatitis partial colectomy tobacco use; no sinus reviewed Hx Anticoagulant Therapy: No Arthritis: Yes Asthma: Yes Blood Disorders: No Anxiety: Yes Depression: Yes Cancer: No Cardiovascular Problems: No High Cholesterol: No COPD: Yes Cerebrovascular Accident: No Diabetes: No Diminished Hearing: No Endocrine: No Gastrointestinal Disorders: Yes (CROHNS) GERD: Yes Genitourinary: No Headaches: Yes Hiatal Hernia: Yes Immune Disorder: No Inguinal Hernia: Yes Implanted Vascular Access Dvce: No Musculoskeletal: Yes (BILAT KNEES.) Neurologic: Yes Psychiatric: Yes Reproductive: No Respiratory: Yes (asthma) Immunizations Current: Yes Migraines: No Pancreatitis: Yes Seizures: No Sleep Apnea: No Thyroid Disease: No Ulcer: No Past Surgical History Abdominal Surgery: Yes (COLON RESECTION DUE TO CROHNS) Cardiac Surgery: No Ear Surgery: No Endocrine Surgery: No Eye Surgery: No Genitourinary Surgery: No Gynecologic Surgery: No Neurologic Surgery: No Oral Surgery: No Pacemaker: No Thoracic Surgery: No Tonsillectomy: Yes Other Surgery: Yes (TONSILECTOMY, CHRON'S DISEASE) Social History Alcohol Use: No (quit) Tobacco Use: Yes (1 PPD) Substance Use: No Allergies-Medications (Allergen,Severity, Reaction): Coded Allergies: tetanus toxoid, adsorbed (Verified Allergy, Severe, Nausea/Vomiting, ) Reported Meds & Prescriptions Reported Meds & Active Scripts Active Tylenol-Codeine #3 (Acetaminophen-Codeine) 300-30 mg Tab 1 Tab PO Q4H PRN 20 Days Lasix (Furosemide) 20 Mg Tab 20 Mg PO DAILY Prednisone 20 Mg Tab 20 Mg PO BID Miralax Powder (Polyethylene Glycol 3350 Powder) 17 Gm Powd 17 Gm PO DAILY Mix and dissolve one measuring cap-ful (17 grams) in water or juice. Pantoprazole (Pantoprazole Sodium) 40 Mg Tab 40 Mg PO DAILY K-Tab (Potassium Chloride) 20 Meq Tab 1 Tab PO BID Pentasa (Mesalamine) 250 Mg Caper 1,000 Mg PO BID 30 Days Review of Systems Except as stated in HPI: all other systems reviewed are Neg General / Constitutional: No: Fever, Chills HENT: No: Congestion Cardiovascular: No: Chest Pain or Discomfort Respiratory: No: Shortness of Breath Gastrointestinal: Positive: Nausea, Diarrhea, Abdominal Pain, No: Hematemesis, Hematochezia Genitourinary: No: Dysuria, Decreased Urinary Output, Flank Pain Musculoskeletal: No: Myalgias, Arthralgias Skin: No Rash Neurologic: No: Weakness Psychiatric: No: Anxiety Hematologic/Lymphatic: No: Lymph Node Enlargement Physical Exam Narrative GENERAL: Well-developed well-nourished thin male in no acute distress no respiratory distress SKIN: Warm and dry. HEAD: Normocephalic. EYES: No scleral icterus. No injection or drainage. NECK: Supple, trachea midline. No JVD or lymphadenopathy. CARDIOVASCULAR: Regular rate and rhythm without murmurs, gallops, or rubs. RESPIRATORY: Breath sounds equal bilaterally. No accessory muscle use. GASTROINTESTINAL: Abdomen soft, diffusely mildly tender without guarding or rebound, nondistended. MUSCULOSKELETAL: No cyanosis, or edema. BACK: Nontender without obvious deformity. No CVA tenderness. Data Data Last Documented VS Vital Signs Date Time Temp Pulse Resp B/P (MAP) Pulse Ox O2 Delivery O2 Flow Rate FiO2 05/10/17 07:00 78 16 112/78 (89) 98 05/10/17 05:49 98.2 Orders Orders Complete Blood Count With Diff (05/10/17 05:36) Comprehensive Metabolic Panel (05/10/17 05:36) Lipase (05/10/17 05:36) Urinalysis - C+S If Indicated (05/10/17 05:36) Iv Access Insert/Monitor (05/10/17 05:36) Ecg Monitoring (05/10/17 05:36) Oximetry (05/10/17 05:36) Ondansetron Inj (Zofran Inj) (05/10/17 05:45) Sodium Chlor 0.9% 1000 Ml Inj (Ns 1000 M (05/10/17 05:36) Sodium Chloride 0.9% Flush (Ns Flush) (05/10/17 05:45) Potassium Chloride (Kcl) (05/10/17 06:30) Ondansetron Inj (Zofran Inj) (05/10/17 06:30) Morphine Inj (Morphine Inj) (05/10/17 06:30) Pantoprazole Inj (Protonix Inj) (05/10/17 06:30) Abdomen, Flat & Upright (05/10/17 ) Admit Order (Ed Use Only) (05/10/17 ) Truss Puller Helper / Telemetry DIPIKA.Q8H (05/10/17 07:22) Diet Npo (05/10/17 Breakfast) Activity Bed Rest (05/10/17 07:22) Notify Dr: Other (05/10/17 07:22) Labs Laboratory Tests Test 05/10/17 05:10 05/10/17 06:40 White Blood Count 13.0 TH/MM3 Red Blood Count 2.88 MIL/MM3 Hemoglobin 8.6 GM/DL Hematocrit 25.8 % Mean Corpuscular Volume 89.6 FL Mean Corpuscular Hemoglobin 29.8 PG Mean Corpuscular Hemoglobin Concent 33.3 % Red Cell Distribution Width 17.9 % Platelet Count 254 TH/MM3 Mean Platelet Volume 7.6 FL Neutrophils (%) (Auto) 67.2 % Lymphocytes (%) (Auto) 19.2 % Monocytes (%) (Auto) 6.8 % Eosinophils (%) (Auto) 4.1 % Basophils (%) (Auto) 2.7 % Neutrophils # (Auto) 8.7 TH/MM3 Lymphocytes # (Auto) 2.5 TH/MM3 Monocytes # (Auto) 0.9 TH/MM3 Eosinophils # (Auto) 0.5 TH/MM3 Basophils # (Auto) 0.4 TH/MM3 CBC Comment DIFF FINAL Differential Comment Blood Urea Nitrogen 8 MG/DL Creatinine 0.56 MG/DL Random Glucose 86 MG/DL Total Protein 5.7 GM/DL Albumin 2.2 GM/DL Calcium Level 7.8 MG/DL Alkaline Phosphatase 197 U/L Aspartate Amino Transf (AST/SGOT) 85 U/L Alanine Aminotransferase (ALT/SGPT) 120 U/L Total Bilirubin 0.9 MG/DL Sodium Level 140 MEQ/L Potassium Level 3.0 MEQ/L Chloride Level 108 MEQ/L Carbon Dioxide Level 23.0 MEQ/L Anion Gap 9 MEQ/L Estimat Glomerular Filtration Rate 153 ML/MIN Lipase 255 U/L Urine Collection Type CLEAN CATCH Urine Color DARK-YELLOW Urine Turbidity CLEAR Urine pH 7.0 Urine Specific [place]row 1.019 Urine Protein NEG mg/dL Urine Glucose (UA) NEG mg/dL Urine Ketones TRACE mg/dL Urine Occult Blood SMALL Urine Nitrite NEG Urine Bilirubin NEG Urine Leukocyte Esterase NEG Urine RBC 10-14 /hpf Urine WBC 0-2 /hpf Microscopic Urinalysis Comment CULT NOT INDICATED MDM Medical Decision Making Medical Screen Exam Complete: Yes Emergency Medical Condition: Yes Medical Record Reviewed: Yes Interpretation(s) Last Impressions Abdomen X-Ray 05/10/17 0000 Signed Impressions: Service Date/Time: Wednesday, May 10, 2017 06:38 - CONCLUSION: 1. Small bowel ileus characteristic of high grade partial small bowel obstructive process. 2. Postsurgical changes right lower quadrant of the abdomen. Star Patterson MD CBC & BMP Diagram 05/10/17 05:10 Total Protein 5.7 #L, Albumin 2.2 L, Calcium Level 7.8 L, Alkaline Phosphatase 197 H, Aspartate Amino Transf (AST/SGOT) 85 H, Alanine Aminotransferase (ALT/ SGPT) 120 H, Total Bilirubin 0.9 Vital Signs Date Time Temp Pulse Resp B/P (MAP) Pulse Ox O2 Delivery O2 Flow Rate FiO2 05/10/17 07:00 78 16 112/78 (89) 98 05/10/17 05:49 98.2 93 15 125/65 (85) 98 05/10/17 05:44 98.2 104 18 125/65 (85) 98 05/10/17 05:03 98.2 104 18 125/65 (85) 98 Differential Diagnosis Abdominal pain, flare Crohn's disease, diverticulitis, antibiotic induced colitis, UTI, pancreatitis, chronic pain syndrome Narrative Course IV access obtained specimens collected and sent for resulting patient given IV fluid bolus and Zofran Patient waiting on lab results states Zofran and IV fluids are provided no relief and requests that he be given pain medication Patient administered Protonix 40 mg IV and a one-time dose of morphine sulfate 3 mg IV; urinalysis and abdomen flat and upright x-ray; medical record reviewed specifically with last admission patient presented with complaint of abdominal pain and during evaluation was identified to have cellulitis of the index finger requiring admission for management of cellulitis and underwent surgical intervention with IV antibiotics. CT 05/03/17 was remarkable for nonobstructing right renal stone 4-5 mm in size, small amount of ascites, wall thickening of the distal loops of the intestine consistent with diagnosis of Crohn's but no acute process, mild splenomegaly, and chronic unchanged mesenteric lymphadenopathy. At this point in time patient's abdomen is soft nontender and he has had multiple imaging studies of late exam and history do not support additional CT imaging and radiation exposure. AXR: c/w ileus; clinically no vomiting non-distended and loose stool without blood or mucous and with nonexplosive-flatus; plan to place patient in obs for bowel rest iv fluids and electrolyte replacement Patient discussed with Dr Manriquez Sepsis Criteria SIRS Criteria (2 or more): Heart rate over 90, WBC > 71298, < 4000 or > 10% bands Physician Communication Physician Communication call placed to [facility] service for OBS/ileus Diagnosis Primary Impression: Ileus Additional Impressions: H/O Crohn's disease Anemia of chronic disease Admitting Information Admitting Physician Requests: Odalis Mesa MD May 10, 2017 05:38
[2017-05-10 05:44] VITALS: BP 125/65; PULSE 104; RESP 18; TEMP 98.2; O2SAT 98
[2017-05-10] MEDS ORDERED: SODIUM CHLORIDE 0.9% FLUSH 10 ML FLUSH IV FLUSH PRN ×2 (05:45)
[2017-05-10] MEDS ORDERED: ONDANSETRON HCL 4 MG/2 ML VIAL IVP ONE ×2 (05:45)
[2017-05-10 05:49] VITALS: BP 125/65; PULSE 93; RESP 15; TEMP 98.2; O2SAT 98
[2017-05-10 05:58] LABS: AUTOMATED NEUTROPHIL # 8.7 TH/MM3 (1.8-7.7); BASOPHIL # 0.4 TH/MM3 (0-0.2); BASOPHIL % 2.7 % (0.0-2.0); EOSINOPHIL # 0.5 TH/MM3 (0-0.4); EOSINOPHIL % 4.1 % (0.0-4.0); HEMATOCRIT 25.8 % (39.0-51.0); HEMOGLOBIN 8.6 GM/DL (13.0-17.0); LYMPH % 19.2 % (9.0-44.0); LYMPHOCYTE # 2.5 TH/MM3 (1.0-4.8); MEAN CELL VOLUME 89.6 FL (80.0-100.0); MEAN CORPUSCULAR HEMOGLOBIN 29.8 PG (27.0-34.0); MEAN CORPUSCULAR HGB CONC 33.3 % (32.0-36.0); MEAN PLATELET VOLUME 7.6 FL (7.0-11.0); MONO % 6.8 % (0.0-8.0); MONOCYTE # 0.9 TH/MM3 (0-0.9); NEUT % 67.2 % (16.0-70.0); PLATELET COUNT 254 TH/MM3 (150-450); RED BLOOD COUNT 2.88 MIL/MM3 (4.50-5.90); RED CELL DISTRIBUTION WIDTH 17.9 % (11.6-17.2)
[2017-05-10 06:12] LABS: CHLORIDE 108 MEQ/L (98-107); SODIUM (NA) 140 MEQ/L (136-145)
[2017-05-10 06:15] LABS: ALBUMIN 2.2 GM/DL (3.4-5.0); CALCIUM 7.8 MG/DL (8.5-10.1); LIPASE 255 U/L (73-393)
[2017-05-10 06:16] LABS: BLOOD UREA NITROGEN 8 MG/DL (7-18); GLUCOSE,RANDOM 86 MG/DL (74-106)
[2017-05-10 06:18] LABS: ALT (GPT) 120 U/L (12-78); AST (GOT) 85 U/L (15-37); CREATININE 0.56 MG/DL (0.60-1.30); GLOMERULAR FILTRATION RATE 153 ML/MIN (>89)
[2017-05-10 06:20] LABS: TOTAL BILIRUBIN ADULT 0.9 MG/DL (0.2-1.0); TOTAL PROTEIN 5.7 GM/DL (6.4-8.2)
[2017-05-10 06:21] LABS: ALKALINE PHOSPHATASE 197 U/L (45-117)
[2017-05-10] MEDS ORDERED: POTASSIUM CHLORIDE 20 MEQ CONTROLLED RELEASE TAB PO ONE ×2 (06:30)
[2017-05-10] MEDS ORDERED: PANTOPRAZOLE SODIUM 40 MG VIAL IV PUSH ONE ×2 (06:30)
[2017-05-10] MEDS ORDERED: ONDANSETRON HCL 4 MG/2 ML VIAL IV PUSH ONE ×2 (06:30)
[2017-05-10] MEDS ORDERED: MORPHINE SULFATE 8 MG/ML INJ IV PUSH ONE ×2 (06:30)
[2017-05-10 06:57] LABS: BILIRUBIN, URINE NEG (NEG); BLOOD, URINE SMALL (NEG); GLUCOSE,URINE NEG (NEG); KETONE, URINE TRACE mg/dL (NEG); NITRITE,URINE NEG (NEG); URINE LEUKOCYTE ESTERASE NEG (NEG)
[2017-05-10 06:59] LABS: URINE COLOR DARK-YELLOW (YELLW/STRAW)
[2017-05-10 07:00] VITALS: BP 112/78; PULSE 78; RESP 16; O2SAT 98
[2017-05-10 07:02] LABS: WBC, URINE 0-2 /hpf (0-5)
--- NOTE | 2017-05-10 07:13 | RADRPT ---
EXAM DATE/TIME: 05/10/2017 06:38 [facility] COMPARISON: ABDOMEN FLAT & UPRIGHT, March 06, 2016, 15:11. INDICATIONS : Abdominal pain. MEDICAL HISTORY : Crohn's disease. pancreatitis. gastroesophageal reflux disease. hiatal hernia. SURGICAL HISTORY : Colon resection. ENCOUNTER: Initial ACUITY: >1 year PAIN SCORE: 8/10 LOCATION: all quadrants. FINDINGS: Supine and upright views of the abdomen were performed. Distended air-filled loops of small bowel ar e noted. Postsurgical clips are identified in the right lower quadrant of the abdomen. Minimal gas an d stool seen in the colon. There is no significant mass effect. CONCLUSION: 1. Small bowel ileus characteristic of high grade partial small bowel obstructive process. 2. Postsurgical changes right lower quadrant of the abdomen. Star Patterson MD on May 10, 2017 at 7:10 Board Certified Radiologist. This report was verified electronically.
[2017-05-10] MEDS ORDERED: THIAMINE INJ 100 MG in SODIUM CHLORIDE 0.9% INJ 100 ML IV ONE ×4 (07:30)
[2017-05-10] MEDS ORDERED: D5-NS + KCL 20 MEQ INJ 1,000 ML IV SCH ×2 (07:30)
== END 2017-05-10 08:55 | disposition left against medical advice (07) ==
LOC: PHED 04:49 → PHEDA 07:22
PROVIDERS: ADMIT Family Medicine; ATTEND Family Medicine
DX: K56.690 Other partial intestinal obstruction (principal); K50.90 Crohn's disease, unspecified, without complications; D63.8 Anemia in other chronic diseases classified elsewhere; K21.9 Gastro-esophageal reflux disease without esophagitis; K44.9 Diaphragmatic hernia without obstruction or gangrene; Z87.442 Personal history of urinary calculi
CPT/HCPCS: 74020; 80053; 81001; 83690; 85025; 96374; 96375; 99285; C9113; G0378; J2270; J2405; J3411; J7030

== ENCOUNTER 2017-05-23 19:24 | Inpatient (IN) | payer OTHER ==
[~2017-05-23] VITALS: Ht 182.9 cm; Wt 56.2 kg
[2017-05-23 19:41] VITALS: BP 116/64; PULSE 109; RESP 22; TEMP 98.4; O2SAT 97
--- NOTE | 2017-05-23 19:45 | PD ---
HPI Chief Complaint: Abdominal Pain Time Seen by Provider: 19:44 Travel History International Travel<30 days: No Contact w/Intl Traveler<30days: No Traveled to known affect area: No History of Present Illness HPI Patient is a 52-year-old male with history of Crohn's disease, pancreatitis, COPD, alcohol abuse, cirrhosis, presents to the emergency room complaints of abdominal pain. Patient reports that he has history of Crohn disease, reports that he has history of partial colectomy secondary to Crohn's disease in the past. Patient reports that he was recently admitted for Crohn's exacerbation, he was discharged on a course of steroids as well as Pentasa which he completed full course of medications. Patient reports that he has follow-up with GI as outpatient, reports that at this point, his pain is uncontrolled. .Reports that for the past 3 days, he has had increased pains to his lower abdomen with associated nausea. Reports that he has had multiple bouts of diarrhea as well. Denies bloody stools. Denies fever/chills. PFSH Past Medical History Hx Anticoagulant Therapy: No Arthritis: Yes Asthma: Yes Blood Disorders: No Anxiety: Yes Depression: Yes Cancer: No Cardiovascular Problems: No High Cholesterol: No COPD: Yes Cerebrovascular Accident: No Diabetes: No Diminished Hearing: No Endocrine: No Gastrointestinal Disorders: Yes (CROHNS) GERD: Yes Genitourinary: No Headaches: Yes Hiatal Hernia: Yes Immune Disorder: No Inguinal Hernia: Yes Implanted Vascular Access Dvce: No Musculoskeletal: Yes (BILAT KNEES.) Neurologic: Yes Psychiatric: Yes Reproductive: No Respiratory: Yes (asthma) Immunizations Current: Yes Migraines: No Pancreatitis: Yes Seizures: No Sleep Apnea: No Thyroid Disease: No Ulcer: No Past Surgical History Abdominal Surgery: Yes (COLON RESECTION DUE TO CROHNS) Cardiac Surgery: No Ear Surgery: No Endocrine Surgery: No Eye Surgery: No Genitourinary Surgery: No Gynecologic Surgery: No Neurologic Surgery: No Oral Surgery: No Pacemaker: No Thoracic Surgery: No Tonsillectomy: Yes Other Surgery: Yes (TONSILECTOMY, CHRON'S DISEASE) Social History Alcohol Use: No (quit) Tobacco Use: Yes (1 PPD) Substance Use: No Allergies-Medications (Allergen,Severity, Reaction): Coded Allergies: tetanus toxoid, adsorbed (Verified Allergy, Severe, Nausea/Vomiting, 05/23) Reported Meds & Prescriptions Reported Meds & Active Scripts Active Tylenol-Codeine #3 (Acetaminophen-Codeine) 300-30 mg Tab 1 Tab PO Q4H PRN 20 Days Lasix (Furosemide) 20 Mg Tab 20 Mg PO DAILY Prednisone 20 Mg Tab 20 Mg PO BID Miralax Powder (Polyethylene Glycol 3350 Powder) 17 Gm Powd 17 Gm PO DAILY Mix and dissolve one measuring cap-ful (17 grams) in water or juice. Pantoprazole (Pantoprazole Sodium) 40 Mg Tab 40 Mg PO DAILY K-Tab (Potassium Chloride) 20 Meq Tab 1 Tab PO BID Pentasa (Mesalamine) 250 Mg Caper 1,000 Mg PO BID 30 Days Review of Systems General / Constitutional: No: Fever Eyes: No: Visual changes HENT: No: Headaches Cardiovascular: No: Chest Pain or Discomfort Respiratory: No: Shortness of Breath Gastrointestinal: Positive: Nausea, Diarrhea, Abdominal Pain, No: Vomiting, Hematemesis, Hematochezia, Constipation, Changes in Bowel Habits Genitourinary: No: Dysuria Musculoskeletal: No: Pain Skin: No Rash Neurologic: No: Weakness Psychiatric: No: Depression Endocrine: No: Polydipsia Hematologic/Lymphatic: No: Easy Bruising Physical Exam Narrative GENERAL:moderate distress SKIN: Focused skin assessment warm/dry. HEAD: Atraumatic. Normocephalic. EYES: Pupils equal and round. No scleral icterus. No injection or drainage. ENT: No nasal bleeding or discharge. Mucous membranes pink and moist. NECK: Trachea midline. No JVD. CARDIOVASCULAR: Regular rate and rhythm. No murmur appreciated. RESPIRATORY: No accessory muscle use. Clear to auscultation. Breath sounds equal bilaterally. GASTROINTESTINAL: Abdomen soft, increased tenderness to lower abdomen with rebound and guarding on exam, nondistended. Hepatic and splenic margins not palpable. MUSCULOSKELETAL: No obvious deformities. No clubbing. No cyanosis. No edema. NEUROLOGICAL: Awake and alert. No obvious cranial nerve deficits. Motor grossly within normal limits. Normal speech. PSYCHIATRIC: Appropriate mood and affect; insight and judgment normal. Data Data Last Documented VS Vital Signs Date Time Temp Pulse Resp B/P (MAP) Pulse Ox O2 Delivery O2 Flow Rate FiO2 05/23/17 22:04 97 16 113/72 (86) 95 Room Air 05/23/17 19:41 98.4 Orders Orders Complete Blood Count With Diff (05/23/17 19:49) Comprehensive Metabolic Panel (05/23/17 19:49) Lipase (05/23/17 19:49) Prothrombin Time / Inr (Pt) (05/23/17 19:49) Act Partial Throm Time (Ptt) (05/23/17 19:49) Urinalysis - C+S If Indicated (05/23/17 19:49) Iv Access Insert/Monitor (05/23/17 19:49) Ecg Monitoring (05/23/17 19:49) Oximetry (05/23/17 19:49) Morphine Inj (Morphine Inj) (05/23/17 20:00) Ondansetron Inj (Zofran Inj) (05/23/17 20:00) Sodium Chlor 0.9% 1000 Ml Inj (Ns 1000 M (05/23/17 19:49) Sodium Chloride 0.9% Flush (Ns Flush) (05/23/17 20:00) Ct Abd/Pel W Iv Contrast(Rout) (05/23/17 19:50) Potassium Chlor 20 Meq Premix (Kcl 20 Me (05/23/17 21:15) Potassium Chloride (Kcl) (05/23/17 21:15) Iohexol 350 Inj (Omnipaque 350 Inj) (05/23/17 21:47) Labs Laboratory Tests Test 05/23/17 20:20 05/23/17 20:33 White Blood Count 11.8 TH/MM3 Red Blood Count 3.51 MIL/MM3 Hemoglobin 9.8 GM/DL Hematocrit 31.4 % Mean Corpuscular Volume 89.6 FL Mean Corpuscular Hemoglobin 27.9 PG Mean Corpuscular Hemoglobin Concent 31.2 % Red Cell Distribution Width 17.2 % Platelet Count 330 TH/MM3 Mean Platelet Volume 7.1 FL Neutrophils (%) (Auto) 68.3 % Lymphocytes (%) (Auto) 18.8 % Monocytes (%) (Auto) 10.5 % Eosinophils (%) (Auto) 1.7 % Basophils (%) (Auto) 0.7 % Neutrophils # (Auto) 8.1 TH/MM3 Lymphocytes # (Auto) 2.2 TH/MM3 Monocytes # (Auto) 1.2 TH/MM3 Eosinophils # (Auto) 0.2 TH/MM3 Basophils # (Auto) 0.1 TH/MM3 CBC Comment DIFF FINAL Differential Comment Prothrombin Time 13.4 SEC Prothromb Time International Ratio 1.2 RATIO Activated Partial Thromboplast Time 28.2 SEC Blood Urea Nitrogen 7 MG/DL Creatinine 0.58 MG/DL Random Glucose 89 MG/DL Total Protein 6.3 GM/DL Albumin 2.5 GM/DL Calcium Level 8.0 MG/DL Alkaline Phosphatase 300 U/L Aspartate Amino Transf (AST/SGOT) 24 U/L Alanine Aminotransferase (ALT/SGPT) 26 U/L Total Bilirubin 0.5 MG/DL Sodium Level 144 MEQ/L Potassium Level 3.1 MEQ/L Chloride Level 112 MEQ/L Carbon Dioxide Level 18.9 MEQ/L Anion Gap 13 MEQ/L Estimat Glomerular Filtration Rate 147 ML/MIN Lipase 142 U/L Urine Color YELLOW Urine Turbidity CLEAR Urine pH 6.0 Urine Specific [place] 1.022 Urine Protein TRACE mg/dL Urine Glucose (UA) NEG mg/dL Urine Ketones NEG mg/dL Urine Occult Blood NEG Urine Nitrite NEG Urine Bilirubin NEG Urine Leukocyte Esterase NEG Urine RBC 10-14 /hpf Urine WBC 0-2 /hpf Urine Squamous Epithelial Cells 0-5 /hpf Urine Mucus FEW /lpf Microscopic Urinalysis Comment CULT NOT INDICATED MDM Medical Decision Making Medical Screen Exam Complete: Yes Emergency Medical Condition: Yes Medical Record Reviewed: Yes Interpretation(s) Vital Signs Date Time Temp Pulse Resp B/P (MAP) Pulse Ox O2 Delivery O2 Flow Rate FiO2 05/23/17 19:41 98.4 109 22 116/64 (81) 97 Differential Diagnosis Crohn's disease, colitis, electrolyte abnormality Narrative Course 52-year-old male with history of Crohn's disease, presents to emergency room with complaints Crohn's exacerbation with increased lower abdominal pain with nausea for the past 3 days During the course of the patients emergency department visit, the patients history, examination, and differential diagnosis were reviewed with the patient. The patient was placed on a manager cardiac with oximetry and frequent blood pressure monitoring. The patient had [-] IV access obtained and blood work sent for analysis. The patient was initially provided IV morphine, IV fluids, IV Zofran. The patients laboratory studies were reviewed and remarkable for: Laboratory Tests Test 05/23/17 20:20 05/23/17 20:33 White Blood Count 11.8 TH/MM3 (4.0-11.0) Red Blood Count 3.51 MIL/MM3 (4.50-5.90) Hemoglobin 9.8 GM/DL (13.0-17.0) Hematocrit 31.4 % (39.0-51.0) Mean Corpuscular Volume 89.6 FL (80.0-100.0) Mean Corpuscular Hemoglobin 27.9 PG (27.0-34.0) Mean Corpuscular Hemoglobin Concent 31.2 % (32.0-36.0) Red Cell Distribution Width 17.2 % (11.6-17.2) Platelet Count 330 TH/MM3 (150-450) Mean Platelet Volume 7.1 FL (7.0-11.0) Neutrophils (%) (Auto) 68.3 % (16.0-70.0) Lymphocytes (%) (Auto) 18.8 % (9.0-44.0) Monocytes (%) (Auto) 10.5 % (0.0-8.0) Eosinophils (%) (Auto) 1.7 % (0.0-4.0) Basophils (%) (Auto) 0.7 % (0.0-2.0) Neutrophils # (Auto) 8.1 TH/MM3 (1.8-7.7) Lymphocytes # (Auto) 2.2 TH/MM3 (1.0-4.8) Monocytes # (Auto) 1.2 TH/MM3 (0-0.9) Eosinophils # (Auto) 0.2 TH/MM3 (0-0.4) Basophils # (Auto) 0.1 TH/MM3 (0-0.2) CBC Comment DIFF FINAL Differential Comment Prothrombin Time 13.4 SEC (9.8-11.6) Prothromb Time International Ratio 1.2 RATIO Activated Partial Thromboplast Time 28.2 SEC (24.3-30.1) Blood Urea Nitrogen 7 MG/DL (7-18) Creatinine 0.58 MG/DL (0.60-1.30) Random Glucose 89 MG/DL (74-106) Total Protein 6.3 GM/DL (6.4-8.2) Albumin 2.5 GM/DL (3.4-5.0) Calcium Level 8.0 MG/DL (8.5-10.1) Alkaline Phosphatase 300 U/L (45-117) Aspartate Amino Transf (AST/SGOT) 24 U/L (15-37) Alanine Aminotransferase (ALT/SGPT) 26 U/L (12-78) Total Bilirubin 0.5 MG/DL (0.2-1.0) Sodium Level 144 MEQ/L (136-145) Potassium Level 3.1 MEQ/L (3.5-5.1) Chloride Level 112 MEQ/L (98-107) Carbon Dioxide Level 18.9 MEQ/L (21.0-32.0) Anion Gap 13 MEQ/L (5-15) Estimat Glomerular Filtration Rate 147 ML/MIN (>89) Lipase 142 U/L (73-393) Urine Color YELLOW (YELLW/STRAW) Urine Turbidity CLEAR (CLEAR) Urine pH 6.0 (5.0-8.5) Urine Specific [place] 1.022 (1.002-1.035) Urine Protein TRACE mg/dL (NEG-TRACE) Urine Glucose (UA) NEG mg/dL (NEG) Urine Ketones NEG mg/dL (NEG) Urine Occult Blood NEG (NEG) Urine Nitrite NEG (NEG) Urine Bilirubin NEG (NEG) Urine Leukocyte Esterase NEG (NEG) Urine RBC 10-14 /hpf (0-3) Urine WBC 0-2 /hpf (0-5) Urine Squamous Epithelial Cells 0-5 /hpf (0-5) Urine Mucus FEW /lpf (OCC) Microscopic Urinalysis Comment CULT NOT INDICATED Radiology studies were reviewed and remarkable for: CT of the abdomen and pelvis with contrast significant for: 1. Suspected small bowel obstruction. There is a transition point likely in the distal small bowel where the bowel goes from dilated to prominently thickened and then fully decompressed. This short decompressed segment appears to an anastomosis with the ascending colon. Apparently the patient has a history Crohn 's disease. The small bowel measures up to 6 cm in diameter. 2. Suspected changes of cirrhosis in the liver with a recanalized paraumbilical vein and varices seen around the distal esophagus and upper stomach likely from portal hypertension. 3. Moderate to large amount of ascites. The ascites does extend into right inguinal canal and right hemiscrotum. 4. Nonobstructing 4 mm right renal stone. All findings as well as incidental findings reviewed with patient in detail. Plan to admit patient to the hospital, case reviewed with Dr. Lynn who accepts patient to service. Diagnosis Primary Impression: SBO (small bowel obstruction) Additional Impression: Crohn disease Admitting Information Admitting Physician Requests: Admit Cat Akins DO May 23, 2017 19:45
[2017-05-23] MEDS ORDERED: SODIUM CHLOR 0.9% 1000 ML INJ 1,000 ML IV SCH (19:49)
[2017-05-23] MEDS ORDERED: ONDANSETRON HCL 4 MG/2 ML VIAL IVP ONE (20:00)
[2017-05-23] MEDS ORDERED: SODIUM CHLORIDE 0.9% FLUSH 10 ML FLUSH IV FLUSH PRN ×2 (20:00→22:45)
[2017-05-23] MEDS ORDERED: MORPHINE SULFATE 4 MG/ML INJ IV PUSH ONE (20:00)
[2017-05-23 20:35] LABS: AUTOMATED NEUTROPHIL # 8.1 TH/MM3 (1.8-7.7); BASOPHIL # 0.1 TH/MM3 (0-0.2); BASOPHIL % 0.7 % (0.0-2.0); EOSINOPHIL # 0.2 TH/MM3 (0-0.4); EOSINOPHIL % 1.7 % (0.0-4.0); HEMATOCRIT 31.4 % (39.0-51.0); HEMO FLAGS DIFF FINAL; LYMPH % 18.8 % (9.0-44.0); LYMPHOCYTE # 2.2 TH/MM3 (1.0-4.8); MEAN CELL VOLUME 89.6 FL (80.0-100.0); MEAN CORPUSCULAR HEMOGLOBIN 27.9 PG (27.0-34.0); MEAN CORPUSCULAR HGB CONC 31.2 % (32.0-36.0); MONO % 10.5 % (0.0-8.0); NEUT % 68.3 % (16.0-70.0); PLATELET COUNT 330 TH/MM3 (150-450); RED BLOOD COUNT 3.51 MIL/MM3 (4.50-5.90); RED CELL DISTRIBUTION WIDTH 17.2 % (11.6-17.2); WHITE BLOOD COUNT 11.8 TH/MM3 (4.0-11.0)
[2017-05-23 20:36] LABS: CHLORIDE 112 MEQ/L (98-107); POTASSIUM 3.1 MEQ/L (3.5-5.1); SODIUM (NA) 144 MEQ/L (136-145)
[2017-05-23 20:40] LABS: ANION GAP 13 MEQ/L (5-15); BICARBONATE 18.9 MEQ/L (21.0-32.0); BLOOD UREA NITROGEN 7 MG/DL (7-18)
[2017-05-23 20:41] LABS: BLOOD, URINE NEG (NEG); GLUCOSE,URINE NEG (NEG); KETONE, URINE NEG (NEG); NITRITE,URINE NEG (NEG)
[2017-05-23 20:43] LABS: ALT (GPT) 26 U/L (12-78); APTT (PATIENT) 28.2 SEC (24.3-30.1); AST (GOT) 24 U/L (15-37); GLOMERULAR FILTRATION RATE 147 ML/MIN (>89); INTERNATIONAL NORMALIZED RATIO 1.2 RATIO; PROTHROMBIN TIME - PATIENT 13.4 SEC (9.8-11.6)
[2017-05-23 20:44] LABS: TOTAL BILIRUBIN ADULT 0.5 MG/DL (0.2-1.0)
[2017-05-23 20:46] LABS: ALKALINE PHOSPHATASE 300 U/L (45-117)
[2017-05-23 20:48] LABS: URINE COLOR YELLOW (YELLW/STRAW)
[2017-05-23 20:49] LABS: COMMENT (UR) CULT NOT INDICATED; CULTURE IF INDICATED CULT NOT INDICATED; MUCUS URINE FEW /lpf (OCC); SQUAMOUS EPITHELIAL CELL URINE 0-5 /hpf (0-5); WBC, URINE 0-2 /hpf (0-5)
[2017-05-23 21:11] VITALS: RESP 18; O2SAT 97
[2017-05-23] MEDS ORDERED: POTASSIUM CHLORIDE 10 MEQ CONTROLLED RELEASE TAB PO ONE (21:15)
[2017-05-23] MEDS ORDERED: IOHEXOL 350 MG/ML 10 ML VIAL (for RAD DIAG) IVCONTRAST ONE (21:47)
[2017-05-23] MEDS: POTASSIUM CHLOR 20 MEQ PREMIX 100 ML IV SCH (21:50)
[2017-05-23 22:04] VITALS: BP 113/72; PULSE 97; RESP 16; O2SAT 95
--- NOTE | 2017-05-23 22:18 | RADRPT ---
EXAM DATE/TIME: 05/23/2017 20:44 [facility] COMPARISON: CHEST SINGLE AP, May 02, 2017, 21:37. CT ABDOMEN & PELVIS W CONTRAST, Oc tober 2016, 23:06. INDICATIONS : Nausea. Lower abdominal pain. IV CONTRAST: 100 cc Omnipaque 350 (iohexol) IV ORAL CONTRAST: No oral contrast ingested. RADIATION DOSE: 5.76 CTDIvol (mGy) MEDICAL HISTORY : Pancreatitis. Gastroesophageal reflux disease. Hernia, hiatal. SURGICAL HISTORY : Colon resection. ENCOUNTER: Initial ACUITY: 1 day PAIN SCALE: 10/10 LOCATION: Bilateral lower quadrant TECHNIQUE: Volumetric scanning of the abdomen and pelvis was performed. Using automated exposure control and adjustment of the mA and/or kV according to patient size, radiation dose was kept as low as reasonably achievable to obtain optimal diagnostic quality images. DICOM format image data is av ailable electronically for review and comparison. FINDINGS: The liver appears heterogeneous. There does appear to be a suspected recanalized periu mbilical vein. There are varices seen around the distal esophagus and upper stomach. There is a mod erate to large amount of ascites present. The spleen, pancreas, and adrenal glands are normal. There is a 4 mm nonobstructing right renal ston e. No hydronephrosis is seen on either side. There are some scattered atherosclerotic calcification s seen throughout the arterial system. An aneurysm is not present. There is dilatation of the mid-small bowel. There appears to be a transition point at the mid abdomen with an area of thickened small bowel seen in the mid abdomen and then decompressed more distal smal l bowel. This decompressed distal small bowel appears to be associated with anastomosis sutures betw een the segment of small bowel and the ascending colon. The patient is likely status post resection of the terminal ileum and portions of the ascending colon. The moderate ascites extends into the pelvis in the right hemiscrotum. The pelvic structures appear grossly intact. The lung bases are clear. The bony structures are unremarkable. CONCLUSION: 1. Suspected small bowel obstruction. There is a transition point likely in the distal small bowel wh ere the bowel goes from dilated to prominently thickened and then fully decompressed. This short dec ompressed segment appears to an anastomosis with the ascending colon. Apparently the patient has a hi story Crohn's disease. The small bowel measures up to 6 cm in diameter. 2. Suspected changes of cirrhosis in the liver with a recanalized paraumbilical vein and varices seen around the distal esophagus and upper stomach likely from portal hypertension. 3. Moderate to large amount of ascites. The ascites does extend into right inguinal canal and right hemiscrotum. 4. Nonobstructing 4 mm right renal stone. Oc Foster MD on May 23, 2017 at 21:56 Board Certified Radiologist. This report was verified electronically.
[2017-05-23] MEDS ORDERED: ACETAMINOPHEN 325 MG TAB PO PRN (22:45)
[2017-05-23] MEDS ORDERED: BISACODYL 10 MG SUPP RECTAL PRN (22:45)
[2017-05-23] MEDS ORDERED: MAGNESIUM HYDROXIDE SUSP 30 ML CUP PO PRN (22:45)
[2017-05-23] MEDS ORDERED: LACTULOSE SYRUP 20 GM/30 ML CUP PO PRN (22:45)
[2017-05-23] MEDS ORDERED: NALOXONE HCL 0.4 MG/ML AMP IV PUSH PRN (22:45)
[2017-05-23] MEDS ORDERED: ONDANSETRON HCL 4 MG/2 ML VIAL IVP PRN (22:45)
[2017-05-23] MEDS ORDERED: SENNOSIDES 8.6 MG TAB PO PRN (22:45)
[2017-05-23] MEDS: SODIUM CHLOR 0.45% 1000 ML INJ 1,000 ML IV SCH (23:25)
[2017-05-24] VITALS (7 sets, daily range): BP systolic 92–123; BP diastolic 53–77; PULSE 70–101; RESP 16–20; TEMP 96.5–98.4; O2SAT 95–97
[2017-05-24] MEDS: MORPHINE SULFATE 2 MG/ML INJ IV PUSH PRN ×5 (00:40→18:44)
[2017-05-24] MEDS: POTASSIUM CHLOR 20 MEQ PREMIX 100 ML IV SCH (00:45)
[2017-05-24 06:50] LABS: AUTOMATED NEUTROPHIL # 6.6 TH/MM3 (1.8-7.7); BASOPHIL % 0.5 % (0.0-2.0); EOSINOPHIL # 0.2 TH/MM3 (0-0.4); EOSINOPHIL % 2.1 % (0.0-4.0); HEMATOCRIT 24.3 % (39.0-51.0); HEMO FLAGS DIFF FINAL; LYMPH % 16.9 % (9.0-44.0); LYMPHOCYTE # 1.6 TH/MM3 (1.0-4.8); MEAN CELL VOLUME 89.1 FL (80.0-100.0); MEAN CORPUSCULAR HGB CONC 31.4 % (32.0-36.0); MONO % 10.3 % (0.0-8.0); NEUT % 70.2 % (16.0-70.0); PLATELET COUNT 250 TH/MM3 (150-450); RED BLOOD COUNT 2.72 MIL/MM3 (4.50-5.90); RED CELL DISTRIBUTION WIDTH 16.9 % (11.6-17.2); WHITE BLOOD COUNT 9.4 TH/MM3 (4.0-11.0)
[2017-05-24 07:03] LABS: POTASSIUM 3.9 MEQ/L (3.5-5.1)
[2017-05-24 07:12] LABS: BICARBONATE 18.7 MEQ/L (21.0-32.0)
[2017-05-24 07:44] LABS: CALCIUM-PROTEIN CORRECTED 8.1 MG/DL (8.5-10.1)
[2017-05-24] MEDS: FUROSEMIDE 20 MG TAB PO SCH (08:58)
[2017-05-24] MEDS: PANTOPRAZOLE SOD 40 MG DELAYED RELEASE TAB PO SCH (08:58)
[2017-05-24] MEDS: DOCUSATE SODIUM 50 MG/SENNA 8.6 MG TAB PO SCH ×2 (08:58→20:17)
[2017-05-24] MEDS: SODIUM CHLORIDE 0.9% FLUSH 10 ML FLUSH IV FLUSH SCH ×2 (08:59→20:04)
[2017-05-24] MEDS ORDERED: predniSONE 20 MG TAB PO SCH (09:00)
[2017-05-24] MEDS: MESALAMINE 250 MG CAP PO SCH ×2 (10:17→20:17)
[2017-05-24] MEDS: SODIUM CHLOR 0.45% 1000 ML INJ 1,000 ML IV SCH ×2 (10:18→11:20)
--- NOTE | 2017-05-24 11:47 | HHI.HP ---
[facility] No Primary Care Physician Admission Diagnosis Small bowel obstruction, Chron's exacerbation Diagnoses: (1) Crohn disease (2) SBO (small bowel obstruction) (3) Intractable abdominal pain (4) Ascites due to alcoholic cirrhosis Chief Complaint: Worsening abdominal pain Travel History International Travel<30 Days: No Contact w/Intl Traveler <30 Da: No Traveled to Known Affected Are: No History of Present Illness Written by Yadira Garcia, acting as scribe for Dr. Vicente on 05/24/17 at 11:32. Mr. Portillo is a 52-year-old male patient with a known medical history of Crohn's disease, cirrhosis and pancreatitis with bowel resection who presented to the ED with complaints of worsening abdominal pain. Patient states that he has suffered from GI complaints for over 8 years with intermittent abdominal pain since due to his Crohn's disease. He states that over the past 2 weeks his abdominal pain has worsening significantly. The pain is located diffusely throughout his abdomen with radiation to his back, rates the pain 8/10 on pain scale and is relieved with pain mediation. Does admit to passing gas and has passed 4 soft BMs today. He also admits to running out of his medications due to monetary reasons. Patient does not follow with a PCP in the outpatient setting. Patient has seen Dr. Whitaker roughly 1 year ago while hospitalized but does not follow with an outpatient GI specialist. Denies any recent fever, chills, cough, shortness of breath, n/v/d or dysuria. Denies any hematozemia. Patient did state he underwent a paracentesis 1 month ago, unaware of how much was drained. After review of records, patient was admitted to the hospital with sepsis secondary to right index finger cellulitis, was given IV antibiotics and steroids at the time. Due to infection patient missed his appointment with Dr. Lane at the time and has not seen the surgeon. Review of Systems Constitutional: DENIES: Fever, Chills Respiratory: DENIES: Cough Cardiovascular: DENIES: Chest pain Gastrointestinal: COMPLAINS OF: Abdominal pain, DENIES: Constipation, Diarrhea , Nausea, Vomiting Except as stated in HPI: all other systems reviewed are Neg Past Family Social History Past Medical History Anxiety Asthma Depression Crohns disease Past Surgical History Colon resection Tonsillectomy Reported Medications Active Tylenol-Codeine #3 (Acetaminophen-Codeine) 300-30 mg Tab 1 Tab PO Q4H PRN 20 Days Lasix (Furosemide) 20 Mg Tab 20 Mg PO DAILY Prednisone 20 Mg Tab 20 Mg PO BID Miralax Powder (Polyethylene Glycol 3350 Powder) 17 Gm Powd 17 Gm PO DAILY Mix and dissolve one measuring cap-ful (17 grams) in water or juice. Pantoprazole (Pantoprazole Sodium) 40 Mg Tab 40 Mg PO DAILY K-Tab (Potassium Chloride) 20 Meq Tab 1 Tab PO BID Pentasa (Mesalamine) 250 Mg Caper 1,000 Mg PO BID 30 Days Allergies: Coded Allergies: tetanus toxoid, adsorbed (Verified Allergy, Severe, Nausea/Vomiting, 05/23) Active Ordered Medications Current Medications Medications (Trade) Dose Ordered Sig/Vikki Route Start Time Stop Time Status Last Admin Sodium Chloride 1,000 ml @ 75 mls/hr [id number] IV 05/23/17 22:45 05/24/17 10:18 (NS Flush) 2 ml UNSCH PRN IV FLUSH 05/23/17 22:45 (NS Flush) 2 ml BID IV FLUSH 05/24/17 09:00 (Tylenol) 650 mg Q4H PRN PO 05/23/17 22:45 (Zofran Inj) 4 mg Q6H PRN IVP 05/23/17 22:45 (Narcan Inj) 0.4 mg UNSCH PRN IV PUSH 05/23/17 22:45 (Liat-Colace) 1 tab BID PO 05/24/17 09:00 05/24/17 08:58 (Milk Of Magnesia Liq) 30 ml Q12H PRN PO 05/23/17 22:45 (Senokot) 17.2 mg Q12H PRN PO 05/23/17 22:45 (Dulcolax Supp) 10 mg DAILY PRN RECTAL 05/23/17 22:45 (Lactulose Liq) 30 ml DAILY PRN PO 05/23/17 22:45 (Lasix) 20 mg DAILY PO 05/24/17 09:00 05/24/17 08:58 (Pentasa Sr) 1,000 mg BID PO 05/24/17 09:00 05/24/17 10:17 (Protonix) 40 mg DAILY PO 05/24/17 09:00 05/24/17 08:58 (Deltasone) 20 mg BID PO 05/24/17 09:00 05/24/17 08:58 (Morphine Inj) 2 mg Q4H PRN IV PUSH 05/24/17 00:15 05/24/17 10:17 Family History Father has a history of colon cancer. Mother has a history of cardiovascular disease, CA and stroke. Social History Admits to smoking 1/2 ppd cigarettes for 15 years. Admits to quitting alcohol use 1 year ago. Denies any illicit drug use. Physical Exam Vital Signs Vital Signs Date Time Temp Pulse Resp B/P (MAP) Pulse Ox O2 Delivery O2 Flow Rate FiO2 05/24/17 10:22 20 05/24/17 04:00 98.4 92 20 109/75 (86) 97 05/24/17 00:45 101 16 110/69 (83) 95 Room Air 05/23/17 22:04 97 16 113/72 (86) 95 Room Air 05/23/17 21:32 18 05/23/17 21:11 18 97 Room Air 05/23/17 19:41 98.4 109 22 116/64 (81) 97 Physical Exam GENERAL: thin appearing male patient, sitting up on side of bed SKIN: Cool and dry. HEENT: Atraumatic. Normocephalic. Pupils equal round and reactive. Extraocular motions intact. No scleral icterus. No injection or drainage. Nose without bleeding. Throat without erythema, tonsillar hypertrophy or exudate. Uvula midline. Airway patent. NECK: Trachea midline. No JVD. Supple. CARDIOVASCULAR: Regular rate and rhythm without murmurs RESPIRATORY: Clear to auscultation. Breath sounds equal bilaterally. No wheezes. GASTROINTESTINAL: Abdomen round, firm, some distension noted, some discomfort to deep palpation throughout. No guarding. Hypoactive bowel sounds x 4 q. MUSCULOSKELETAL: Extremities without edema. No joint tenderness, effusion, or edema noted. NEUROLOGICAL: Awake and alert. Cranial nerves II through XII intact. Motor and sensory grossly within normal limits. Five out of 5 muscle strength in all muscle groups. Normal speech. Laboratory Laboratory Tests Test 05/23/17 20:20 05/23/17 20:33 05/24/17 05:40 White Blood Count 11.8 9.4 Red Blood Count 3.51 2.72 Hemoglobin 9.8 7.6 Hematocrit 31.4 24.3 Mean Corpuscular Volume 89.6 89.1 Mean Corpuscular Hemoglobin 27.9 28.0 Mean Corpuscular Hemoglobin Concent 31.2 31.4 Red Cell Distribution Width 17.2 16.9 Platelet Count 330 250 Mean Platelet Volume 7.1 7.4 Neutrophils (%) (Auto) 68.3 70.2 Lymphocytes (%) (Auto) 18.8 16.9 Monocytes (%) (Auto) 10.5 10.3 Eosinophils (%) (Auto) 1.7 2.1 Basophils (%) (Auto) 0.7 0.5 Neutrophils # (Auto) 8.1 6.6 Lymphocytes # (Auto) 2.2 1.6 Monocytes # (Auto) 1.2 1.0 Eosinophils # (Auto) 0.2 0.2 Basophils # (Auto) 0.1 0.0 CBC Comment DIFF FINAL DIFF FINAL Differential Comment Prothrombin Time 13.4 Prothromb Time International Ratio 1.2 Activated Partial Thromboplast Time 28.2 Blood Urea Nitrogen 7 7 Creatinine 0.58 0.46 Random Glucose 89 80 Total Protein 6.3 5.2 Albumin 2.5 Calcium Level 8.0 7.1 Alkaline Phosphatase 300 Aspartate Amino Transf (AST/SGOT) 24 Alanine Aminotransferase (ALT/SGPT) 26 Total Bilirubin 0.5 Sodium Level 144 144 Potassium Level 3.1 3.9 Chloride Level 112 115 Carbon Dioxide Level 18.9 18.7 Anion Gap 13 10 Estimat Glomerular Filtration Rate 147 192 Lipase 142 Urine Color YELLOW Urine Turbidity CLEAR Urine pH 6.0 Urine Specific [place] 1.022 Urine Protein TRACE Urine Glucose (UA) NEG Urine Ketones NEG Urine Occult Blood NEG Urine Nitrite NEG Urine Bilirubin NEG Urine Leukocyte Esterase NEG Urine RBC 10-14 Urine WBC 0-2 Urine Squamous Epithelial Cells 0-5 Urine Mucus FEW Microscopic Urinalysis Comment CULT NOT INDICATED Protein Corrected Calcium 8.1 Result Diagram: 05/24/17 0540 05/24/17 0540 Imaging Last Impressions Abdomen/Pelvis CT 05/23/17 1950 Signed Impressions: Service Date/Time: Tuesday, May 23, 2017 20:44 - CONCLUSION: 1. Suspected small bowel obstruction. There is a transition point likely in the distal small bowel where the bowel goes from dilated to prominently thickened and then fully decompressed. This short decompressed segment appears to an anastomosis with the ascending colon. Apparently the patient has a history Crohn's disease. The small bowel measures up to 6 cm in diameter. 2. Suspected changes of cirrhosis in the liver with a recanalized paraumbilical vein and varices seen around the distal esophagus and upper stomach likely from portal hypertension. 3. Moderate to large amount of ascites. The ascites does extend into right inguinal canal and right hemiscrotum. 4. Nonobstructing 4 mm right renal stone. Oc Foster MD Caprinlea VTE Risk Assessment Caprini VTE Risk Assessment: No/Low Risk (score <= 1) Caprini Risk Assessment Model Point Value = 1 Point Value = 2 Point Value = 3 Point Value = 5 Age 41-60 Minor surgery BMI > 25 kg/m2 Swollen legs Varicose veins or History of unexplained or recurrent spontaneous Oral contraceptives or hormone replacement Sepsis (< 1 month) Serious lung disease, including pneumonia (< 1 month) Abnormal pulmonary function Acute myocardial infarction Congestive heart failure (< 1 month) History of inflammatory bowel disease Medical patient at bed rest Age 61-74 Arthroscopic surgery Major open surgery (> 45 min) Laparoscopic surgery (> 45 min) Malignancy Confined to bed (> 72 hours) Immobilizing plaster cast Central venous access Age >= 75 History of VTE Family history of VTE Factor V Leiden Prothrombin [id number] Lupus anticoagulant Anticardiolipin antibodies Elevated serum homocysteine Heparin-induced thrombocytopenia Other congenital or acquired thrombophilia Stroke (< 1 month) Elective arthroplasty Hip, pelvis, or leg fracture Acute spinal cord injury (< 1 month) Prophylaxis Regimen Total Risk Factor Score Risk Level Prophylaxis Regimen 0-1 Low Early ambulation 2 Moderate Order ONE of the following: *Sequential Compression Device (SCD) *Heparin 5000 units SQ BID 3-4 Higher Order ONE of the following medications: *Heparin 5000 units SQ TID *Enoxaparin/Lovenox 40 mg SQ daily (WT < 150 kg, CrCl > 30 mL/min) *Enoxaparin/Lovenox 30 mg SQ daily (WT < 150 kg, CrCl > 10-29 mL/min) *Enoxaparin/Lovenox 30 mg SQ BID (WT < 150 kg, CrCl > 30 mL/min) AND/OR *Sequential Compression Device (SCD) 5 or more Highest Order ONE of the following medications: *Heparin 5000 units SQ TID (Preferred with Epidurals) *Enoxaparin/Lovenox 40 mg SQ daily (WT < 150 kg, CrCl > 30 mL/min) *Enoxaparin/Lovenox 30 mg SQ daily (WT < 150 kg, CrCl > 10-29 mL/min) *Enoxaparin/Lovenox 30 mg SQ BID (WT < 150 kg, CrCl > 30 mL/min) AND *Sequential Compression Device (SCD) Assessment and Plan Assessment and Plan Mr. Portillo is a 52-year-old male patient with a known medical history of Crohn's disease with bowel resection who presented to the ED with complaints of worsening abdominal pain. Patient states that he has suffered from GI complaints for over 8 years with intermittent abdominal pain since due to his Crohn's disease. He states that over the past 2 weeks his abdominal pain has worsening significantly. Small bowel obstruction History of cirrhosis History of pancreatitis History of Crohn's disease with bowel resection Normocytic normochromic anemia Abdomen/pelvis CT reviewed showing suspected small bowel obstruction. One section of bowel going from dilated to prominently thickened and then fully decompressed. Likely portal hypertension. Moderate to large amount of ascites. Nonobstructing renal stone. GI consulted, appreciate further input regarding anemia. Hb dropped to 7.6 from 9.8. Repeat H&H in AM. Colorectal surgeon consulted as well, appreciate input. Small bowel series ordered, follow. Keep NPO for now. Continue home Pentasa, Lasix, Protonix. Patient states he has not been taking his medications for quite some time due to running out. Will hold Prednisone, appreciate GI input about restarting. S/p 1L NS IV bolus. Ensure hydration, NS @ 75 ml/hr. Zofran PRN as needed nausea. Hypokalemia: K 3.1 on presentation. s/p repletion. Repeat 3.9. Tobacco abuse: Patient counselled on cessation. GI prophylaxis: Protonix. DVT Prophylaxis: SCDs. This note was transcribed by usha Garcia. I, Dr. Lidia Vicente personally performed the history, physical exam, and medical decision making; and confirmed the accuracy of the information in the transcribed note. Authenticated by Dr. Lidia Vicente on 05/24/17 at 11:32. Code Status full Discussed Condition With patient. Yadira Garcia May 24, 2017 11:47 Lidia Vicente MD May 24, 2017 16:24
--- NOTE | 2017-05-24 11:58 | PD.CONS ---
cc: Tulio Moreno MD HPI Service General Surgery Consult Requested By Dr. Lynn Reason for Consult Crohn's disease Small bowel obstruction Primary Care Physician No Primary Care Physician History of Present Illness This is a 52-year-old male with a past medical history of Chron's disease, pancreatitis, alcohol abuse, cirrhosis, arthritis, asthma, and anxiety and depression. The patient's has had on-and-off abdominal pain for about 8 years but has increased over the past two years. The patient was seen several days ago for increase in abdominal pain and was DC'd from the Emergency Department. The patient has seen Dr. Lane in the past and had a partial colectomy at 30 years old. The patient was scheduled for an appointment to see Dr. Lane last week but had to cancel the appointment due to a infection that was positive for MRSA in his right index finger. The patient comes Emergency Department last night with increased abdominal pain and 1 episode of emesis. A CT abdomen and pelvis was obtained which was suspicious for small bowel obstruction and with a transition point in the distal small bowel. A General Surgery consultation is requested. Review of Systems Constitutional: COMPLAINS OF: Fatigue, Change in appetite Endocrine: DENIES: Polydipsia, Polyuria, Polyphagia Eyes: DENIES: Diplopia Ears, nose, mouth, throat: DENIES: Hearing loss Respiratory: DENIES: Cough Cardiovascular: DENIES: Chest pain Gastrointestinal: COMPLAINS OF: Abdominal pain, Diarrhea, Nausea, Vomiting Genitourinary: DENIES: Urinary frequency Musculoskeletal: DENIES: Joint pain Integumentary: DENIES: Abnormal pigmentation Hematologic/lymphatic: DENIES: Bruising Immunologic/allergic: DENIES: Eczema Neurologic: DENIES: Abnormal gait, Headache Psychiatric: DENIES: Mood changes, Depression, Hallucinations Past Family Social History Past Medical History Crohn's disease Pancreatitis EtOH abuse Cirrhosis Arthritis Asthma Anxiety Depression Past Surgical History Partial colectomy by Dr. Lane Tonsillectomy Allergies: Coded Allergies: tetanus toxoid, adsorbed (Verified Allergy, Severe, Nausea/Vomiting, 05/23) Active Ordered Medications Current Medications Medications (Trade) Dose Ordered Sig/Vikki Route Start Time Stop Time Status Last Admin Sodium Chloride 1,000 ml @ 75 mls/hr [id number] IV 05/23/17 22:45 05/24/17 10:18 (NS Flush) 2 ml UNSCH PRN IV FLUSH 05/23/17 22:45 (NS Flush) 2 ml BID IV FLUSH 05/24/17 09:00 (Tylenol) 650 mg Q4H PRN PO 05/23/17 22:45 (Zofran Inj) 4 mg Q6H PRN IVP 05/23/17 22:45 (Narcan Inj) 0.4 mg UNSCH PRN IV PUSH 05/23/17 22:45 (Liat-Colace) 1 tab BID PO 05/24/17 09:00 05/24/17 08:58 (Milk Of Magnesia Liq) 30 ml Q12H PRN PO 05/23/17 22:45 (Senokot) 17.2 mg Q12H PRN PO 05/23/17 22:45 (Dulcolax Supp) 10 mg DAILY PRN RECTAL 05/23/17 22:45 (Lactulose Liq) 30 ml DAILY PRN PO 05/23/17 22:45 (Lasix) 20 mg DAILY PO 05/24/17 09:00 05/24/17 08:58 (Pentasa Sr) 1,000 mg BID PO 05/24/17 09:00 05/24/17 10:17 (Protonix) 40 mg DAILY PO 05/24/17 09:00 05/24/17 08:58 (Deltasone) 20 mg BID PO 05/24/17 09:00 05/24/17 08:58 (Morphine Inj) 2 mg Q4H PRN IV PUSH 05/24/17 00:15 05/24/17 10:17 Family History Noncontributory Social History Positive tobacco abuse approximately half a pack per day Prior EtOH use; none in the past year Denies illicit drug use Physical Exam Vital Signs Vital Signs Date Time Temp Pulse Resp B/P (MAP) Pulse Ox O2 Delivery O2 Flow Rate FiO2 05/24/17 10:22 20 05/24/17 08:00 98.1 92 18 123/67 (85) 96 05/24/17 04:00 98.4 92 20 109/75 (86) 97 05/24/17 00:45 101 16 110/69 (83) 95 Room Air 05/23/17 22:04 97 16 113/72 (86) 95 Room Air 05/23/17 21:32 18 05/23/17 21:11 18 97 Room Air 05/23/17 19:41 98.4 109 22 116/64 (81) 97 Physical Exam GENERAL: A 52-year-old male resting in bed in no acute distress. SKIN: Warm and dry. Right index finger with healing abrasion. HEAD: Atraumatic. Normocephalic. EYES: Pupils equal and round. No scleral icterus. No injection or drainage. ENT: No nasal bleeding or discharge. Mucous membranes pink and moist. NECK: Trachea midline. CARDIOVASCULAR: Regular rate and rhythm. RESPIRATORY: No accessory muscle use. Clear to auscultation. Breath sounds equal bilaterally. GASTROINTESTINAL: Abdomen minimally tender with palpation; moderately distended ; large well-healed midline incision. MUSCULOSKELETAL: Extremities without clubbing, cyanosis, or edema. No obvious deformities. NEUROLOGICAL: Awake and alert. No obvious cranial nerve deficits. Motor grossly within normal limits. Five out of 5 muscle strength in the arms and legs. Normal speech. PSYCHIATRIC: Appropriate mood and affect; insight and judgment normal. Laboratory Laboratory Tests Test 05/23/17 20:20 05/23/17 20:33 05/24/17 05:40 White Blood Count 11.8 9.4 Red Blood Count 3.51 2.72 Hemoglobin 9.8 7.6 Hematocrit 31.4 24.3 Mean Corpuscular Volume 89.6 89.1 Mean Corpuscular Hemoglobin 27.9 28.0 Mean Corpuscular Hemoglobin Concent 31.2 31.4 Red Cell Distribution Width 17.2 16.9 Platelet Count 330 250 Mean Platelet Volume 7.1 7.4 Neutrophils (%) (Auto) 68.3 70.2 Lymphocytes (%) (Auto) 18.8 16.9 Monocytes (%) (Auto) 10.5 10.3 Eosinophils (%) (Auto) 1.7 2.1 Basophils (%) (Auto) 0.7 0.5 Neutrophils # (Auto) 8.1 6.6 Lymphocytes # (Auto) 2.2 1.6 Monocytes # (Auto) 1.2 1.0 Eosinophils # (Auto) 0.2 0.2 Basophils # (Auto) 0.1 0.0 CBC Comment DIFF FINAL DIFF FINAL Differential Comment Prothrombin Time 13.4 Prothromb Time International Ratio 1.2 Activated Partial Thromboplast Time 28.2 Blood Urea Nitrogen 7 7 Creatinine 0.58 0.46 Random Glucose 89 80 Total Protein 6.3 5.2 Albumin 2.5 Calcium Level 8.0 7.1 Alkaline Phosphatase 300 Aspartate Amino Transf (AST/SGOT) 24 Alanine Aminotransferase (ALT/SGPT) 26 Total Bilirubin 0.5 Sodium Level 144 144 Potassium Level 3.1 3.9 Chloride Level 112 115 Carbon Dioxide Level 18.9 18.7 Anion Gap 13 10 Estimat Glomerular Filtration Rate 147 192 Lipase 142 Urine Color YELLOW Urine Turbidity CLEAR Urine pH 6.0 Urine Specific [place] 1.022 Urine Protein TRACE Urine Glucose (UA) NEG Urine Ketones NEG Urine Occult Blood NEG Urine Nitrite NEG Urine Bilirubin NEG Urine Leukocyte Esterase NEG Urine RBC 10-14 Urine WBC 0-2 Urine Squamous Epithelial Cells 0-5 Urine Mucus FEW Microscopic Urinalysis Comment CULT NOT INDICATED Protein Corrected Calcium 8.1 Result Diagram: 05/24/17 0540 05/24/17 0540 Imaging Last 48 hours Impressions Abdomen/Pelvis CT 05/23/17 1950 Signed Impressions: Service Date/Time: Tuesday, May 23, 2017 20:44 - CONCLUSION: 1. Suspected small bowel obstruction. There is a transition point likely in the distal small bowel where the bowel goes from dilated to prominently thickened and then fully decompressed. This short decompressed segment appears to an anastomosis with the ascending colon. Apparently the patient has a history Crohn's disease. The small bowel measures up to 6 cm in diameter. 2. Suspected changes of cirrhosis in the liver with a recanalized paraumbilical vein and varices seen around the distal esophagus and upper stomach likely from portal hypertension. 3. Moderate to large amount of ascites. The ascites does extend into right inguinal canal and right hemiscrotum. 4. Nonobstructing 4 mm right renal stone. Oc Foster MD Assessment and Plan Assessment and Plan 52-year-old male with long-standing Crohn's disease status post partial colectomy by Dr. Lane at age 30; with small bowel obstruction -Nothing by mouth -IV fluids -Recommend consultation with Dr. Lane -No acute General Surgery issues at this time; surgical management per Dr. Lane -Thank you for this consultation; Will be available if needed Discussed Condition With Yashira Bains May 24, 2017 11:58
--- NOTE | 2017-05-24 15:20 | RADRPT ---
EXAM DATE/TIME: 05/24/2017 13:07 [facility] COMPARISON: ABDOMEN FLAT & UPRIGHT, May 10, 2017, 6:38. INDICATIONS : Abdominal pain MEDICAL HISTORY : Pancreatitis. Gastroesophageal reflux disease. Hernia, hiatal. SURGICAL HISTORY : Colon resection. ENCOUNTER: Subsequent ACUITY: 2 days PAIN SCORE: 10/10 LOCATION: middle Abdomen FINDINGS: Supine and upright views of the abdomen were performed. Surgical clips are identified In the right lower abdomen. Loop of dilated small bowel in the center portion of the abdomen with mul tiple air-fluid levels on the upright characteristic of a small bowel obstruction. Paucity of air in the colon. No pneumoperitoneum. CONCLUSION: Plain film findings concerning for high-grade small bowel obstruction. Jarrell Coburn MD on May 24, 2017 at 15:09 Board Certified Radiologist. This report was verified electronically.
[2017-05-24] MEDS ORDERED: ACETAMINOPHEN/HYDROcodone 325 MG/5 MG TAB PO PRN (16:30)
[2017-05-24] MEDS: ACETAMINOPHEN/HYDROcodone 325 MG/10 MG TAB PO PRN ×2 (17:27→23:26)
[2017-05-25] VITALS: BP 104/70; PULSE 70; RESP 16; TEMP 96.6; O2SAT 97
[2017-05-25] MEDS: ACETAMINOPHEN/HYDROcodone 325 MG/10 MG TAB PO PRN (05:34)
--- NOTE | 2017-05-25 06:13 | MB ---
cc: CAROL WHITAKER M.D. DATE OF 1965 DATE OF CONSULTATION 05/24/[address] Batres REASON FOR REFERRAL Crohn's disease. Thank you for the consultation. HISTORY OF PRESENT ILLNESS A 52-year-old male who has history of Crohn's disease and cirrhosis. The patient also has pancreatitis. He had bowel obstruction and resection in the past. The patient ran out of his medication about 4 days ago including diuretics, Pentasa and he stopped taking any medication. He started having abdominal discomfort and pain and came to the hospital. The patient is known to our service from before. He has been going into the hospital multiple times because every time he runs out of medication he comes to the hospital. The patient does not have any primary care doctor and he said he is having hard time finding one and that is why he could not fill his medication. The patient also has cellulitis of the index finger and he was on antibiotic. Currently he complained of generalized abdominal discomfort and he feels hungry. He states that it is more of a hunger pain, more than anything else. REVIEW OF SYSTEMS All 12-points negative except HPI. PAST MEDICAL HISTORY Significant for - 1. Asthma. 2. Depression. 3. Crohn disease. 4. Anxiety. SURGICAL HISTORY 1. Tonsillectomy. 2. Colon resection. MEDICATIONS Reviewed in the chart. He is not taking any for the last 4-5 days. ALLERGIES TETANUS SHOTS. SOCIAL HISTORY He smokes half-a-pack a day. Quit alcohol about a year ago. No drugs. FAMILY HISTORY Significant for colon cancer. PHYSICAL EXAMINATION GENERAL: Alert, oriented, in no acute distress. VITAL SIGNS: Stable. HEENT: Pupils are round, reactive to light. NECK: Supple. CHEST: Clear to auscultation and precaution at this time. CARDIAC: Regular rate and rhythm. No murmur or gallop. ABDOMEN: Soft, nondistended. Mild discomfort throughout the abdomen. Positive bowel sounds. EXTREMITIES: No edema, clubbing or cyanosis. NEUROLOGIC: Alert, oriented, in no acute distress. No focal abnormality. Psychologically appropriate. LABORATORY DATA White count 9.4, hemoglobin 7.6, platelet 250. INR 1.2. Liver function tests normal. Lipase normal. Creatinine 0.46. ABDOMINAL X-RAY Questionable high-grade small bowel obstruction. CT SCAN Small bowel obstruction with transition point most likely in the distal bowel and this could be at the anastomosis. With his Crohn history, this could be where he has the recurrence at the anastomosis. ASSESSMENT AND PLAN 1. A 52-year-old male with cirrhosis and Crohn disease. The patient is not taking medications. He ran out of medications at this time. The patient needs to be restarted on medication. He cannot be on biologics for Crohn disease because of his infection. We will restart him on Pentasa which seems to have been working for him, but with the possible bowel obstruction we need to have surgical consult for evaluation. He would like to see Dr. Lane for that and we will repeat a KUB tomorrow to see what the status is of possible obstruction. Carol Whitaker MD AH/SSB /8:24 PM /6:00 AM
[2017-05-25 06:51] LABS: HEMATOCRIT 25.4 % (39.0-51.0); REVIEW FLAG FINAL
[2017-05-25 07:18] LABS: ALKALINE PHOSPHATASE 240 U/L (45-117); ALT (GPT) 21 U/L (12-78); ANION GAP 9 MEQ/L (5-15); AST (GOT) 19 U/L (15-37); BICARBONATE 20.7 MEQ/L (21.0-32.0); BLOOD UREA NITROGEN 8 MG/DL (7-18); CHLORIDE 106 MEQ/L (98-107); GLOMERULAR FILTRATION RATE 175 ML/MIN (>89); POTASSIUM 3.3 MEQ/L (3.5-5.1); SODIUM (NA) 136 MEQ/L (136-145)
--- NOTE | 2017-05-25 07:49 | MB ---
cc: ABDULKADIR PRUETT M.D. DATE OF CONSULTATION May 24, 2017 REASON FOR CONSULTATION History of Crohn's disease. Possible small bowel obstruction. HISTORY OF PRESENT ILLNESS Mr. Portillo is a 52-year-old male known previously many years ago requiring a right colectomy for Crohn's disease. He has not been seen for many years but has had a history of cirrhosis and pancreatitis. He has developed ascites as well. The patient has had symptoms relating back to 7 or 8 years now with increasing abdominal cramps and mild obstructive symptoms. He says they come and go at times depending on what he eats. Recently they have gotten a little more severe and more frequent with some abdominal distension. For the last two weeks his abdominal pain has gotten significantly worse, radiating around to the back. The patient has been taking some pain medicine for release. He has been passing gas and continues to have some soft and frequent stools. The patient has not had any consistent medical followup within the last year or so. He denies any fever. He has been nauseous and says he has vomited or had some dry heaves. No rectal bleeding. Admits to a paracentesis about a month ago for buildup of ascites. Also had the infected right index finger with cellulitis and was on IV antibiotics and steroids. The patient was seen in the emergency room, found to have a small bowel obstruction by CAT scan and was admitted for IV fluids and additional workup. Please see his history and physical for more complete past medical and surgical history. PERTINENT PHYSICAL GENERAL: A very pleasant, thin male in no acute distress. HEENT: Remarkable for somewhat pale, dry membranes. Nonicteric sclera. NECK: A little stiff, without adenopathy. CHEST: Relatively clear, diminished in the bases. HEART: Regular rhythm. ABDOMEN: Round and distended. Some tympany to percussion. Mildly tender to palpation. No real mass. No obvious hernias. EXTREMITIES: No cyanosis or clubbing and minimal 1+ pedal edema. LABORATORY STUDIES White blood cell count was 9.4. Hemoglobin went from 9.8 to 7.6, platelet count was 250,000. Coagulation: INR 1.2. Electrolytes remarkable for BUN of 7, creatinine of 0.5. Normal liver function tests. Urinalysis shows some red blood cells. IMAGING STUDIES CAT scan showed distended loops of small bowel going proximally to the stomach with transition point in the distal small bowel with also suspected cirrhosis of the liver, ascites and varices around the distal esophagus. IMPRESSION A 52-year-old male with history of Crohn's disease status post right colectomy many years ago, having apparent progressive symptoms over many years culminating in more acute abdominal pain and possible small bowel obstruction presently. Repeat x-rays do show some dilated loops of bowel with possible evacuation of the colonic gas. Stomach on CAT scan was quite distended but flat and upright show less of a gastric distension. He is very comfortable tonight and thinks maybe his stomach has gone down some without eating. RECOMMENDATIONS Would continue IV fluids, ambulation and repeat some films in the morning. If the small bowel distension persists, may need to transfer to the main house if he is a candidate for possible exploratory lap for laparoscopy and lysis of adhesions due to possible postop adhesions or perhaps recurrent Crohn's disease. With his cirrhosis and portal hypertension, discussed the added risks for surgery with the patient and he understands that conservative treatment might be better initially unless does not show signs of resolving. MD RADHA Flowers/ROLANDO /11:08 PM /7:33 AM
[2017-05-25 08:00] VITALS: BP 100/65; PULSE 72; RESP 16; TEMP 96.8; O2SAT 97
[2017-05-25] MEDS: FUROSEMIDE 20 MG TAB PO SCH (08:10)
[2017-05-25] MEDS: PANTOPRAZOLE SOD 40 MG DELAYED RELEASE TAB PO SCH (08:10)
[2017-05-25] MEDS: MESALAMINE 250 MG CAP PO SCH (08:10)
[2017-05-25] MEDS: SODIUM CHLORIDE 0.9% FLUSH 10 ML FLUSH IV FLUSH SCH (08:14)
--- NOTE | 2017-05-25 10:27 | RADRPT ---
EXAM DATE/TIME: 05/25/2017 08:04 [facility] COMPARISON: CT ABDOMEN & PELVIS W CONTRAST, May 23, 2017, 20:44. ABDOMEN FLAT & UPRIGHT, May 24, 2017, 13:07. INDICATIONS : Obstruction. MEDICAL HISTORY : Pancreatitis. Gastroesophageal reflux disease. Hiatal hernia. SURGICAL HISTORY : Colon resection. ENCOUNTER: Subsequent ACUITY: 4 - 6 days PAIN SCORE: 8/10 LOCATION: Bilateral upper quadrant and lower quadrant abdomen FINDINGS: There is a persistently dilated air-filled loop of small bowel within the central portion of the abdo men suggestive of probable small bowel obstruction or persistent ileus. The colon is nondistended. No free intraperitoneal air is noted. CONCLUSION: Persistently dilated air-filled loop of small bowel within the central portion of the abdomen suggestive of probable small bowel obstruction or persistent ileus. García Devine MD on May 25, 2017 at 10:21 Board Certified Radiologist. This report was verified electronically.
--- NOTE | 2017-05-25 10:56 | HHI.PR ---
Subjective Remarks The patient is frustrated because he cannot eat. He reports his abdominal pain is slightly improved today. He reports multiple episodes of liquid stool. Objective Vitals Vital Signs Date Time Temp Pulse Resp B/P (MAP) Pulse Ox O2 Delivery O2 Flow Rate FiO2 05/25/17 08:00 96.8 72 16 100/65 (77) 97 05/25/17 01:00 18 05/25/17 00:00 96.6 70 16 104/70 (81) 97 05/24/17 22:00 96.6 70 16 104/70 (81) 97 05/24/17 20:00 96.5 86 16 111/77 (88) 97 05/24/17 20:00 96.5 86 16 111/77 (88) 97 05/24/17 19:00 20 05/24/17 16:00 98.0 88 18 100/55 (70) 97 05/24/17 12:00 97.9 85 18 92/53 (66) 96 I/O 05/24/17 05/24/17 05/24/17 05/25/17 05/25/17 05/25/17 07:00 15:00 23:00 07:00 15:00 23:00 Intake Total 200 ml 372 ml 1205 ml 275 ml Balance 200 ml 372 ml 1205 ml 275 ml Intake Oral 480 ml IV Total 200 ml 372 ml 725 ml 275 ml # Voids 4 2 3 # Bowel Movements 3 0 0 Result Diagram: 05/25/17 0622 05/25/17 0622 Imaging Last Impressions Abdomen X-Ray 05/25/17 0800 Signed Impressions: Service Date/Time: May 08:04 - CONCLUSION: Persistently dilated air-filled loop of small bowel within the central portion of the abdomen suggestive of probable small bowel obstruction or persistent ileus. García Devine MD Abdomen/Pelvis CT 05/23/17 1950 Signed Impressions: Service Date/Time: Tuesday, May 23, 2017 20:44 - CONCLUSION: 1. Suspected small bowel obstruction. There is a transition point likely in the distal small bowel where the bowel goes from dilated to prominently thickened and then fully decompressed. This short decompressed segment appears to an anastomosis with the ascending colon. Apparently the patient has a history Crohn's disease. The small bowel measures up to 6 cm in diameter. 2. Suspected changes of cirrhosis in the liver with a recanalized paraumbilical vein and varices seen around the distal esophagus and upper stomach likely from portal hypertension. 3. Moderate to large amount of ascites. The ascites does extend into right inguinal canal and right hemiscrotum. 4. Nonobstructing 4 mm right renal stone. Oc Foster MD Objective Remarks GENERAL: Patient appearing older than stated age, in no acute distress. CARDIOVASCULAR: Normal rate and regular rhythm without murmurs, gallops, or rubs. RESPIRATORY: Good respiratory efforts. Breath sounds equal and clear to auscultation bilaterally. GASTROINTESTINAL: Abdomen is distended and diffusely tender to palpation. MUSCULOSKELETAL: Extremities without cyanosis, or edema. NEURO: Alert & Oriented x4 to person, place, time, situation. Moves all ext x4 PSYCH: Easily irritable A/P Problem List: (1) Crohn disease ICD Code: K50.90 - Crohn's disease, unspecified, without complications Status: Acute (2) SBO (small bowel obstruction) ICD Code: K56.69 - Small bowel obstruction Status: Acute (3) Intractable abdominal pain ICD Code: R10.9 - Intractable abdominal pain Status: Acute (4) Ascites due to alcoholic cirrhosis ICD Code: K70.31 - Alcoholic cirrhosis of liver with ascites Status: Acute Assessment and Plan 52-year-old male with a history of Crohn's disease and bowel resection resented to the hospital with worsening abdominal pain. Patient found to have high- grade small bowel obstruction. Has been treated conservatively so far. Patient seen by GI, general surgery, and colorectal surgery. No significant improvement with conservative management and colorectal surgery recommended transfer to the main hospital for consideration of surgical intervention. Unfortunately I was notified the patient decided to leave the hospital AGAINST MEDICAL ADVICE even after extensive discussion with him regarding the need for further treatment. Luis Daniel Subramanian MD May 25, 2017 10:55
--- NOTE | 2017-05-25 12:45 | HHI.GIFU ---
Subjective Remarks Patient laying in bed, complaining that he is very hungry, and wants to eat, no bowel movements, no GI bleed Objective Vitals I&O Vital Signs Date Time Temp Pulse Resp B/P (MAP) Pulse Ox O2 Delivery O2 Flow Rate FiO2 05/25/17 08:00 96.8 72 16 100/65 (77) 97 05/25/17 01:00 18 05/25/17 00:00 96.6 70 16 104/70 (81) 97 05/24/17 22:00 96.6 70 16 104/70 (81) 97 05/24/17 20:00 96.5 86 16 111/77 (88) 97 05/24/17 20:00 96.5 86 16 111/77 (88) 97 05/24/17 19:00 20 05/24/17 16:00 98.0 88 18 100/55 (70) 97 I/O 05/24/17 05/24/17 05/24/17 05/25/17 05/25/17 05/25/17 07:00 15:00 23:00 07:00 15:00 23:00 Intake Total 200 ml 372 ml 1205 ml 275 ml Balance 200 ml 372 ml 1205 ml 275 ml Intake Oral 480 ml IV Total 200 ml 372 ml 725 ml 275 ml # Voids 4 2 3 # Bowel Movements 3 0 0 Laboratory Laboratory Tests Test 05/25/17 06:22 Hemoglobin 8.2 Hematocrit 25.4 Blood Urea Nitrogen 8 Creatinine 0.50 Random Glucose 73 Total Protein 5.5 Albumin 2.4 Calcium Level 7.7 Alkaline Phosphatase 240 Aspartate Amino Transf (AST/SGOT) 19 Alanine Aminotransferase (ALT/SGPT) 21 Total Bilirubin 1.0 Sodium Level 136 Potassium Level 3.3 Chloride Level 106 Carbon Dioxide Level 20.7 Anion Gap 9 Estimat Glomerular Filtration Rate 175 Physical Exam HEENT: Pupils round and reactive to light; normocephalic; atraumatic; no jaundice. Throat is clear. NECK: Neck is supple, no JVD, no lymphadenopathy. CHEST: Chest is clear to auscultation and percussion. CARDIAC: Regular rate and rhythm with no murmur gallop or rubs. ABDOMEN: Soft, Mild abdominal distention, moderate tenderness throughout the abdomen; no hepatosplenomegaly; bowel sounds are present in all four quadrants. EXTREMITIES: No clubbing, cyanosis, or edema. SKIN: Normal; no rash; no jaundice. REPORTING SPECIALIST: No focal deficits; alert and oriented times three. Assessment and Plan Plan Patient has history of Crohn disease came complaining of abdominal pain and distention found to have possible small bowel obstruction, patient is noncompliant with medication he stated he cannot get the medication because he does not have insurance Patient also has a history of cirrhosis alcohol abuse, seemed to be stable,Not drink according to him at this time I advised the patient that he cannot eat until he had a small bowel follow- through today and make sure that it's not showing persistent obstruction If the x-ray does not show obstruction we can advance his diet to clear liquid and advance it slowly after obtaining a small bowel follow-through Continue medication Patient will need follow up as an outpatient with long-term solution for his ability to get medication for Crohn disease Carol Whitaker MD May 25, 2017 12:45
== END 2017-05-25 10:35 | disposition left against medical advice (07) | DRG 389 ==
LOC: PHED 19:24 → PHEDA 22:49 → PH3A 05-24 03:00 → OBSVTOIN 05-24 15:54
PROVIDERS: ADMIT Family Medicine; ATTEND Family Medicine
DX: K56.609 Unspecified intestinal obstruction, unspecified as to partial versus complete obstruction (principal); K50.90 Crohn's disease, unspecified, without complications; K76.6 Portal hypertension; K70.31 Alcoholic cirrhosis of liver with ascites; N20.0 Calculus of kidney; E87.6 Hypokalemia; J44.9 Chronic obstructive pulmonary disease, unspecified; L03.011 Cellulitis of right finger; M19.90 Unspecified osteoarthritis, unspecified site; K21.9 Gastro-esophageal reflux disease without esophagitis; D64.9 Anemia, unspecified; F10.21 Alcohol dependence, in remission; F32.9 Major depressive disorder, single episode, unspecified; F41.9 Anxiety disorder, unspecified; F17.210 Nicotine dependence, cigarettes, uncomplicated; Z80.0 Family history of malignant neoplasm of digestive organs; Z86.14 Personal history of Methicillin resistant Staphylococcus aureus infection; Z88.7 Allergy status to serum and vaccine; Z90.49 Acquired absence of other specified parts of digestive tract; Z91.14 Patient's other noncompliance with medication regimen
CPT/HCPCS: 74020; 74177; 80048; 80053; 81001; 82948; 83690; 84155; 85014; 85018; 85025; 85610; 85730; 96361; 96365; 96366; G0378; J2270; J2405; J3480; J7030; J7512; Q9967

== ENCOUNTER 2017-06-06 19:45 | Inpatient (IN) | payer OTHER ==
[~2017-06-06] VITALS: Ht 185.4 cm; Wt 58.7 kg
[2017-06-06] MEDS ORDERED: IOHEXOL 350 MG/ML 10 ML VIAL (for RAD DIAG) IVCONTRAST ONE (19:46)
[2017-06-06 19:48] VITALS: BP 112/59; PULSE 116; RESP 18; TEMP 98.6; O2SAT 98
[2017-06-06] MEDS ORDERED: SODIUM CHLOR 0.9% 1000 ML INJ 1,000 ML IV SCH ×2 (20:35→23:24)
--- NOTE | 2017-06-06 20:44 | PD ---
HPI Chief Complaint: Abdominal Pain Time Seen by Provider: 20:06 Travel History International Travel<30 days: No Contact w/Intl Traveler<30days: No Traveled to known affect area: No History of Present Illness HPI 52 YO M with PMH of Crohn's, pancreatitis, COPD, EtOH abuse, cirrhosis, partial colectomy presents to the ED for evaluation 8-10 day history of abdominal bloating and pain. He endorses passing gas from above and below. He endorses multiple loose, small bowel movements. He denies melena, hematochezia, but states that there is "a little blood in my underpants." He endorses nausea and vomiting with certain foods. He was able to eat some macaroni and cheese before presenting today. He denies fevers, chills, dysuria, back pain. He denies chest pain, palpitations, shortness of breath, dizziness. I reviewed the patient's record and he left AMA approximately 10 days ago with a small bowel obstruction. Patient is evasive when asked why he chose to return today. He states he had a upper and lower endoscopy approximately 6 months ago. States that he quit drinking one year ago but endorses recent drinking " to ease my pain." PFSH Past Medical History Hx Anticoagulant Therapy: No Arthritis: Yes Asthma: Yes Blood Disorders: No Anxiety: Yes Depression: Yes Cancer: No Cardiovascular Problems: No High Cholesterol: No Chest Pain: No COPD: Yes Cerebrovascular Accident: No Diabetes: No Diminished Hearing: No Endocrine: No Gastrointestinal Disorders: Yes (CROHNS) GERD: Yes Genitourinary: No Headaches: Yes Hiatal Hernia: Yes Immune Disorder: No Inguinal Hernia: Yes Implanted Vascular Access Dvce: No Musculoskeletal: Yes (BILAT KNEES.) Neurologic: Yes Psychiatric: Yes Reproductive: No Respiratory: Yes (asthma) Immunizations Current: Yes Migraines: No Pancreatitis: Yes Seizures: No Sleep Apnea: No Thyroid Disease: No Ulcer: No Tetanus Vaccination: Unknown Influenza Vaccination: No Past Surgical History Abdominal Surgery: Yes (COLON RESECTION DUE TO CROHNS) Arteriovenous Shunt: No Cardiac Surgery: No Ear Surgery: No Endocrine Surgery: No Eye Surgery: No Genitourinary Surgery: No Gynecologic Surgery: No Insulin Pump: No Joint Replacement: No Neurologic Surgery: No Oral Surgery: No Pacemaker: No Thoracic Surgery: No Tonsillectomy: Yes Other Surgery: Yes (CROHN'S DISEASE) Social History Alcohol Use: No (QUIT) Tobacco Use: Yes (1 PPD) Substance Use: No Allergies-Medications (Allergen,Severity, Reaction): Coded Allergies: tetanus toxoid, adsorbed (Verified Allergy, Severe, Nausea/Vomiting, 05/23) Reported Meds & Prescriptions Reported Meds & Active Scripts Active Tylenol-Codeine #3 (Acetaminophen-Codeine) 300-30 mg Tab 1 Tab PO Q4H PRN 20 Days Lasix (Furosemide) 20 Mg Tab 20 Mg PO DAILY Prednisone 20 Mg Tab 20 Mg PO BID Miralax Powder (Polyethylene Glycol 3350 Powder) 17 Gm Powd 17 Gm PO DAILY Mix and dissolve one measuring cap-ful (17 grams) in water or juice. Pantoprazole (Pantoprazole Sodium) 40 Mg Tab 40 Mg PO DAILY K-Tab (Potassium Chloride) 20 Meq Tab 1 Tab PO BID Pentasa (Mesalamine) 250 Mg Caper 1,000 Mg PO BID 30 Days Review of Systems Except as stated in HPI: all other systems reviewed are Neg Physical Exam Narrative GENERAL: Thin white male in no acute distress. SKIN: Focused skin assessment warm/dry. HEAD: Normocephalic. EYES: No scleral icterus. No injection or drainage. NECK: Supple, trachea midline. No JVD or lymphadenopathy. CARDIOVASCULAR: Regular rate and rhythm without murmurs, gallops, or rubs. RESPIRATORY: Breath sounds equal bilaterally. No accessory muscle use. GASTROINTESTINAL: Abdomen soft, distended, diffusely tender. No fluid wave. No palpable hepatosplenomegaly. Active bowel sounds. Faint [place] RECTAL EXAM: No masses or tenderness, stool is brown. External hemorrhoids noted. Guaiac positive. MUSCULOSKELETAL: No cyanosis, or edema. BACK: Nontender without obvious deformity. No CVA tenderness. Data Data Last Documented VS Vital Signs Date Time Temp Pulse Resp B/P (MAP) Pulse Ox O2 Delivery O2 Flow Rate FiO2 06/06/17 20:47 (76) 06/06/17 20:46 20 98 Room Air 06/06/17 19:48 98.6 116 Orders Orders Complete Blood Count With Diff (06/06/17 20:35) Comprehensive Metabolic Panel (06/06/17 20:35) Lipase (06/06/17 20:35) Lactic Acid (06/06/17 20:35) Urinalysis - C+S If Indicated (06/06/17 20:35) Ct Abd/Pel W Iv Contrast(Rout) (06/06/17 20:35) Iv Access Insert/Monitor (06/06/17 20:35) Ecg Monitoring (06/06/17 20:35) Oximetry (06/06/17 20:35) Morphine Inj (Morphine Inj) (06/06/17 20:45) Ondansetron Inj (Zofran Inj) (06/06/17 20:45) Sodium Chlor 0.9% 1000 Ml Inj (Ns 1000 M (06/06/17 20:35) Sodium Chloride 0.9% Flush (Ns Flush) (06/06/17 20:45) Electrocardiogram (06/06/17 20:35) Pantoprazole Inj (Protonix Inj) (06/06/17 20:45) Iohexol 350 Inj (Omnipaque 350 Inj) (06/06/17 19:46) Prothrombin Time / Inr (Pt) (06/06/17 22:22) Act Partial Throm Time (Ptt) (06/06/17 22:22) Type And Screen (06/06/17 22:22) Admit Order (Ed Use Only) (06/06/17 22:30) Morphine Inj (Morphine Inj) (06/06/17 22:30) Labs Laboratory Tests Test 06/06/17 20:35 06/06/17 20:45 06/06/17 22:15 White Blood Count 14.8 TH/MM3 Red Blood Count 2.82 MIL/MM3 Hemoglobin 8.0 GM/DL Hematocrit 25.1 % Mean Corpuscular Volume 88.8 FL Mean Corpuscular Hemoglobin 28.4 PG Mean Corpuscular Hemoglobin Concent 31.9 % Red Cell Distribution Width 16.6 % Platelet Count 224 TH/MM3 Mean Platelet Volume 7.5 FL Neutrophils (%) (Auto) 69.6 % Lymphocytes (%) (Auto) 16.9 % Monocytes (%) (Auto) 10.5 % Eosinophils (%) (Auto) 2.1 % Basophils (%) (Auto) 0.9 % Neutrophils # (Auto) 10.3 TH/MM3 Lymphocytes # (Auto) 2.5 TH/MM3 Monocytes # (Auto) 1.6 TH/MM3 Eosinophils # (Auto) 0.3 TH/MM3 Basophils # (Auto) 0.1 TH/MM3 CBC Comment DIFF FINAL Differential Comment Blood Urea Nitrogen 9 MG/DL Creatinine 0.80 MG/DL Random Glucose 64 MG/DL Total Protein 5.7 GM/DL Albumin 2.4 GM/DL Calcium Level 7.7 MG/DL Alkaline Phosphatase 233 U/L Aspartate Amino Transf (AST/SGOT) 24 U/L Alanine Aminotransferase (ALT/SGPT) 11 U/L Total Bilirubin 0.4 MG/DL Sodium Level 141 MEQ/L Potassium Level 3.4 MEQ/L Chloride Level 110 MEQ/L Carbon Dioxide Level 23.1 MEQ/L Anion Gap 8 MEQ/L Estimat Glomerular Filtration Rate 102 ML/MIN Lipase 179 U/L Lactic Acid Level 1.7 mmol/L MDM Medical Decision Making Medical Screen Exam Complete: Yes Emergency Medical Condition: Yes Differential Diagnosis Small bowel obstruction versus GI bleed versus ascites versus pancreatitis versus Crohn's exacerbation versus other Narrative Course 52 YO M with PMH of Crohn's, pancreatitis, COPD, EtOH abuse, cirrhosis, partial colectomy presents to the ED for evaluation 8-10 day history of abdominal bloating and pain. He endorses passing gas from above and below and multiple loose, small bowel movements today. He endorses BRBPR. He endorses nausea and vomiting with certain foods. He denies fevers, chills, dysuria, back pain. He denies chest pain, palpitations, shortness of breath, dizziness. I reviewed the patient's record and he left AMA approximately 10 days ago with a small bowel obstruction. Patient is evasive when asked why he chose to return today. He states he had a upper and lower endoscopy approximately 6 months ago. States that he quit drinking one year ago but endorses recent drinking " to ease my pain." Patient afebrile, tachycardic, rate 116 on presentation. Physical exam reveals a thin white male in no acute distress. Chest CTA B. Abdomen protuberant, tense, faint [place] noted. No fluid wave. Rectal exam reveals external hemorrhoids and is guaiac positive. IV was established. Patient was administered 40 mg Protonix, 1 L normal saline, 4 mg morphine, 4 mg Zofran IV. EKG rate 104, sinus tachycardia. Normal intervals. Normal axis. No acute ST changes. Reviewed by Dr. De Los Santos. CBC: WBC 14.8. Hemoglobin 8.0. CMP: BUN 9, creatinine 0.8. Potassium 3.4. Calcium 7.7. Lactic acid 1.7. Lipase 179. Coags: Pending CT abdomen and pelvis: Moderate to severe ascites with other chronic findings per radiology read. I discussed the workup with the patient. He endorses previous paracentesis, "a year or so ago." He complains of pain. He was administered a second dose of 4 mg morphine. He is agreeable to admission. I spoke with Dr. Lynn who agrees to accept the patient to the medicine service. Please see medicine notes for disposition. Lianna Ghosh Jun 06, 2017 20:44
[2017-06-06] MEDS ORDERED: PANTOPRAZOLE SODIUM 40 MG VIAL IV PUSH ONE (20:45)
[2017-06-06] MEDS ORDERED: MORPHINE SULFATE 4 MG/ML INJ IV PUSH ONE ×2 (20:45→22:30)
[2017-06-06] MEDS ORDERED: ONDANSETRON HCL 4 MG/2 ML VIAL IVP ONE (20:45)
[2017-06-06] MEDS ORDERED: SODIUM CHLORIDE 0.9% FLUSH 10 ML FLUSH IV FLUSH PRN ×2 (20:45→23:30)
[2017-06-06 20:46] VITALS: RESP 20; O2SAT 98
[2017-06-06 21:27] LABS: AUTOMATED NEUTROPHIL # 10.3 TH/MM3 (1.8-7.7); BASOPHIL # 0.1 TH/MM3 (0-0.2); BASOPHIL % 0.9 % (0.0-2.0); EOSINOPHIL # 0.3 TH/MM3 (0-0.4); EOSINOPHIL % 2.1 % (0.0-4.0); HEMATOCRIT 25.1 % (39.0-51.0); HEMO FLAGS DIFF FINAL; LYMPH % 16.9 % (9.0-44.0); LYMPHOCYTE # 2.5 TH/MM3 (1.0-4.8); MEAN CELL VOLUME 88.8 FL (80.0-100.0); MEAN CORPUSCULAR HEMOGLOBIN 28.4 PG (27.0-34.0); MEAN CORPUSCULAR HGB CONC 31.9 % (32.0-36.0); MONO % 10.5 % (0.0-8.0); NEUT % 69.6 % (16.0-70.0); PLATELET COUNT 224 TH/MM3 (150-450); RED BLOOD COUNT 2.82 MIL/MM3 (4.50-5.90); RED CELL DISTRIBUTION WIDTH 16.6 % (11.6-17.2); WHITE BLOOD COUNT 14.8 TH/MM3 (4.0-11.0)
--- NOTE | 2017-06-06 21:48 | RADRPT ---
EXAM DATE/TIME: 06/06/2017 21:32 [facility] COMPARISON: No previous studies available for comparison. INDICATIONS : Bilateral lower quadrant pain, blood in stool, and vomiting. IV CONTRAST: 97 cc Omnipaque 350 (iohexol) IV ORAL CONTRAST: No oral contrast ingested. RADIATION DOSE: 11.34 CTDIvol (mGy) MEDICAL HISTORY : Pancreatitis. Crohns disease. Hernia, hiatal. SURGICAL HISTORY : colon resection ENCOUNTER: Initial ACUITY: 1 day PAIN SCALE: 9/10 LOCATION: Bilateral lower quadrant TECHNIQUE: Volumetric scanning of the abdomen and pelvis was performed. Using automated exposure control and ad justment of the mA and/or kV according to patient size, radiation dose was kept as low as reasonably achievable to obtain optimal diagnostic quality images. DICOM format image data is available electro nically for review and comparison. FINDINGS: Lung bases are clear. There is liver cirrhosis and splenomegaly 213.3 cm. Recanalized periumbilical veins are noted. Adrena ls and pancreas and gallbladder are unremarkable. Nonobstructing right renal calculi measuring about 2 mm and 4 mm in diameter. There is improved dilatation of small bowel to exam from May 23. Moderate to severe ascites pres ent. Large right-sided hydrocele with fluid in the right inguinal canal. CONCLUSION: 1. Improvement in small bowel dilatation since May 23. 2. Moderate to severe ascites with liver cirrhosis. Splenomegaly. 3. Nonobstructing right renal calculi. 4. Fluid in right inguinal canal and large right hydrocele. 5. Small hiatal hernia. Dung Ellsworth MD on June 06, 2017 at 21:40 Board Certified Radiologist. This report was verified electronically.
[2017-06-06 21:50] LABS: ANION GAP 8 MEQ/L (5-15); BICARBONATE 23.1 MEQ/L (21.0-32.0); BLOOD UREA NITROGEN 9 MG/DL (7-18); CHLORIDE 110 MEQ/L (98-107); GLOMERULAR FILTRATION RATE 102 ML/MIN (>89); POTASSIUM 3.4 MEQ/L (3.5-5.1); SODIUM (NA) 141 MEQ/L (136-145)
[2017-06-06 21:51] LABS: ALT (GPT) 11 U/L (12-78); AST (GOT) 24 U/L (15-37)
[2017-06-06 21:54] LABS: ALKALINE PHOSPHATASE 233 U/L (45-117); TOTAL BILIRUBIN ADULT 0.4 MG/DL (0.2-1.0)
[2017-06-06 22:30] VITALS: BP 112/72; PULSE 94; RESP 18; O2SAT 98
[2017-06-06 22:51] LABS: APTT (PATIENT) 31.7 SEC (24.3-30.1); INTERNATIONAL NORMALIZED RATIO 1.2 RATIO; PROTHROMBIN TIME - PATIENT 13.8 SEC (9.8-11.6)
[2017-06-06 22:54] LABS: BLOOD, URINE LARGE (NEG); GLUCOSE,URINE NEG (NEG); KETONE, URINE NEG (NEG); MUCUS URINE FEW /lpf (OCC); NITRITE,URINE NEG (NEG); RENAL EPITHELIAL CELLS 6 /hpf
[2017-06-06 22:56] LABS: COMMENT (UR) CULTURE INDICATED; CULTURE IF INDICATED CULTURE INDICATED; URINE COLOR LIGHT-RED (YELLW/STRAW)
[2017-06-06] MEDS ORDERED: ONDANSETRON HCL 4 MG/2 ML VIAL IVP PRN (23:30)
[2017-06-06] MEDS ORDERED: NALOXONE HCL 0.4 MG/ML AMP IV PUSH PRN (23:30)
[2017-06-06] MEDS ORDERED: BISACODYL 10 MG SUPP RECTAL PRN (23:30)
[2017-06-07] VITALS (8 sets, daily range): BP systolic 92–112; BP diastolic 55–67; PULSE 77–104; RESP 14–20; TEMP 97–98.8; O2SAT 92–100
[2017-06-07] MEDS ORDERED: POTASSIUM CHLORIDE 20 MEQ CONTROLLED RELEASE TAB PO ONE (02:30)
[2017-06-07] MEDS: MORPHINE SULFATE 2 MG/ML INJ IV PUSH PRN ×5 (02:36→20:20)
--- NOTE | 2017-06-07 02:49 | HHI.HP ---
[facility] Service [facility] Primary Care Physician No Primary Care Physician Admission Diagnosis GI bleed, anemia, ascites Diagnoses: Travel History International Travel<30 Days: No Contact w/Intl Traveler <30 Da: No Traveled to Known Affected Are: No History of Present Illness 52-year-old male with a past medical history significant for Crohn's disease, cirrhosis, COPD, anxiety disorder and history of pancreatitis presents to the emergency department for worsening of his chronic abdominal pain. The patient states he has an 8-10 day history of abdominal bloating and pain. He endorses passing gas and having regular bowel movements. He denies melena and hematochezia. Hemoccult positive in the ED. Patient endorses pain with deep inspiration, denies fever/chills. He recently left A from [facility] where he was being medically managed for a small bowel obstruction. Prior to that, the patient was recently hospitalized where he was treated for sepsis secondary to suspected finger cellulitis. Patient underwent a paracentesis on 04/11/17 with 2800 cc fluid drained. The patient reports that he quit drinking approximately one year ago but admits to drinking 2 days ago to "ease his pain. " He is noncompliant with his medications and does not have a primary care provider because he states he does not have the money to afford this. Lab values significant for WBCs of 14.8, H&H 8.0/25.1 (baseline for the patient). CT of the abdomen/pelvis shows improvement in small bowel dilation since 05/23 with moderate to severe ascites with liver cirrhosis. Patient afebrile, tachycardic to 116. Review of Systems Denies fever or chills Denies blurry vision, otorrhea, rhinorrhea Denies sore throat and cough No chest pain, palpitations, shortness of breath Positive abdominal pain Denies constipation/diarrhea/nausea/vomiting Denies muscle pain/weakness No rashes Past Family Social History Past Medical History Anxiety Asthma Depression Crohn's disease Past Surgical History Colon resection approximately 22 years ago Tonsillectomy Reported Medications Reported Meds & Active Scripts Active Tylenol-Codeine #3 (Acetaminophen-Codeine) 300-30 mg Tab 1 Tab PO Q4H PRN 20 Days Lasix (Furosemide) 20 Mg Tab 20 Mg PO DAILY Prednisone 20 Mg Tab 20 Mg PO BID Miralax Powder (Polyethylene Glycol 3350 Powder) 17 Gm Powd 17 Gm PO DAILY Mix and dissolve one measuring cap-ful (17 grams) in water or juice. Pantoprazole (Pantoprazole Sodium) 40 Mg Tab 40 Mg PO DAILY K-Tab (Potassium Chloride) 20 Meq Tab 1 Tab PO BID Pentasa (Mesalamine) 250 Mg Caper 1,000 Mg PO BID 30 Days Allergies: Coded Allergies: tetanus toxoid, adsorbed (Verified Allergy, Severe, Nausea/Vomiting, 05/23) Family History Mother with history of NH Physical Exam Vital Signs Vital Signs Date Time Temp Pulse Resp B/P (MAP) Pulse Ox O2 Delivery O2 Flow Rate FiO2 06/07/17 00:30 06/07/17 00:10 98.0 95 18 92/62 (72) 96 06/06/17 22:30 94 18 112/72 (85) 98 Room Air 06/06/17 20:47 (76) 06/06/17 20:46 20 98 Room Air 06/06/17 19:48 98.6 116 18 112/59 (76) 98 Room Air Physical Exam GENERAL: Thin, male lying in bed SKIN: No rashes, ecchymoses or lesions. Cool and dry. HEAD: Atraumatic. Normocephalic. No temporal or scalp tenderness. EYES: Pupils equal round and reactive. Extraocular motions intact. No scleral icterus. No injection or drainage. ENT: Nose without bleeding, purulent drainage or septal hematoma. Throat without erythema, tonsillar hypertrophy or exudate. Uvula midline. Airway patent. NECK: Trachea midline. No JVD or lymphadenopathy. Supple, nontender, no meningeal signs. CARDIOVASCULAR: Regular rate and rhythm without murmurs, gallops, or rubs. RESPIRATORY: Clear to auscultation. Breath sounds equal bilaterally. No wheezes , rales, or rhonchi. GASTROINTESTINAL: Abdomen distended, diffusely tender to palpation. No fluid wave. MUSCULOSKELETAL: Extremities without clubbing, cyanosis, or edema. No joint tenderness, effusion, or edema noted. No calf tenderness. Negative Homans sign bilaterally. NEUROLOGICAL: Awake and alert. Cranial nerves II through XII intact. Motor and sensory grossly within normal limits. Normal speech. Laboratory Laboratory Tests Test 06/06/17 20:35 06/06/17 20:45 06/06/17 22:15 White Blood Count 14.8 Red Blood Count 2.82 Hemoglobin 8.0 Hematocrit 25.1 Mean Corpuscular Volume 88.8 Mean Corpuscular Hemoglobin 28.4 Mean Corpuscular Hemoglobin Concent 31.9 Red Cell Distribution Width 16.6 Platelet Count 224 Mean Platelet Volume 7.5 Neutrophils (%) (Auto) 69.6 Lymphocytes (%) (Auto) 16.9 Monocytes (%) (Auto) 10.5 Eosinophils (%) (Auto) 2.1 Basophils (%) (Auto) 0.9 Neutrophils # (Auto) 10.3 Lymphocytes # (Auto) 2.5 Monocytes # (Auto) 1.6 Eosinophils # (Auto) 0.3 Basophils # (Auto) 0.1 CBC Comment DIFF FINAL Differential Comment Blood Urea Nitrogen 9 Creatinine 0.80 Random Glucose 64 Total Protein 5.7 Albumin 2.4 Calcium Level 7.7 Alkaline Phosphatase 233 Aspartate Amino Transf (AST/SGOT) 24 Alanine Aminotransferase (ALT/SGPT) 11 Total Bilirubin 0.4 Sodium Level 141 Potassium Level 3.4 Chloride Level 110 Carbon Dioxide Level 23.1 Anion Gap 8 Estimat Glomerular Filtration Rate 102 Lipase 179 Lactic Acid Level 1.7 Prothrombin Time 13.8 Prothromb Time International Ratio 1.2 Activated Partial Thromboplast Time 31.7 Urine Color LIGHT-RED Urine Turbidity CLOUDY Urine pH 6.0 Urine Specific [place] 1.031 Urine Protein 30 Urine Glucose (UA) NEG Urine Ketones NEG Urine Occult Blood LARGE Urine Nitrite NEG Urine Bilirubin NEG Urine Urobilinogen 2.0 Urine Leukocyte Esterase SMALL Urine RBC Urine WBC 4 Urine WBC Clumps RARE Urine Renal Epithelial Cells 6 Urine Amorphous Sediment RARE Urine Mucus FEW Microscopic Urinalysis Comment CULTURE INDICATED Date/Time Source Procedure Growth Status 06/06/17 22:15 Urine Clean Catch Urine Culture Pending Received Result Diagram: 06/06/17203406/06/172034 Caprini VTE Risk Assessment Caprini VTE Risk Assessment: No/Low Risk (score <= 1) Caprini Risk Assessment Model Point Value = 1 Point Value = 2 Point Value = 3 Point Value = 5 Age 41-60 Minor surgery BMI > 25 kg/m2 Swollen legs Varicose veins or History of unexplained or recurrent spontaneous Oral contraceptives or hormone replacement Sepsis (< 1 month) Serious lung disease, including pneumonia (< 1 month) Abnormal pulmonary function Acute myocardial infarction Congestive heart failure (< 1 month) History of inflammatory bowel disease Medical patient at bed rest Age 61-74 Arthroscopic surgery Major open surgery (> 45 min) Laparoscopic surgery (> 45 min) Malignancy Confined to bed (> 72 hours) Immobilizing plaster cast Central venous access Age >= 75 History of VTE Family history of VTE Factor V Leiden Prothrombin [id number] Lupus anticoagulant Anticardiolipin antibodies Elevated serum homocysteine Heparin-induced thrombocytopenia Other congenital or acquired thrombophilia Stroke (< 1 month) Elective arthroplasty Hip, pelvis, or leg fracture Acute spinal cord injury (< 1 month) Prophylaxis Regimen Total Risk Factor Score Risk Level Prophylaxis Regimen 0-1 Low Early ambulation 2 Moderate Order ONE of the following: *Sequential Compression Device (SCD) *Heparin 5000 units SQ BID 3-4 Higher Order ONE of the following medications: *Heparin 5000 units SQ TID *Enoxaparin/Lovenox 40 mg SQ daily (WT < 150 kg, CrCl > 30 mL/min) *Enoxaparin/Lovenox 30 mg SQ daily (WT < 150 kg, CrCl > 10-29 mL/min) *Enoxaparin/Lovenox 30 mg SQ BID (WT < 150 kg, CrCl > 30 mL/min) AND/OR *Sequential Compression Device (SCD) 5 or more Highest Order ONE of the following medications: *Heparin 5000 units SQ TID (Preferred with Epidurals) *Enoxaparin/Lovenox 40 mg SQ daily (WT < 150 kg, CrCl > 30 mL/min) *Enoxaparin/Lovenox 30 mg SQ daily (WT < 150 kg, CrCl > 10-29 mL/min) *Enoxaparin/Lovenox 30 mg SQ BID (WT < 150 kg, CrCl > 30 mL/min) AND *Sequential Compression Device (SCD) Assessment and Plan Assessment and Plan 52-year-old male with a past medical history of Crohn's disease and cirrhosis presents to the emergency department with acute exacerbation of his chronic abdominal pain. 1. Ascites CT of the abdomen/pelvis significant for moderate to severe ascites with liver cirrhosis Interventional radiology consulted for possible paracentesis 2. Abdominal pain/Crohn's disease Patient is noncompliant with medication Unclear if the abdominal pain is secondary to ascites versus Crohn's Hemoccult-positive in the ED Gastroenterology consulted, appreciate recommendations Patient will need long-term follow-up for his Crohn's disease, case management consulted 3. Hypokalemia Potassium 3.4 Repleted with by mouth potassium Follow-up BMP 4. Leukocytosis WBC 14.8, without left shift Afebrile CXR pending Low threshold to start antibiotics for SBP Repeat CBC in a.m. 5. Anemia Hemoccult-positive in the ED Currently at baseline Follow CBC 6. History of tobacco abuse Nicotine patch Cessation counseling FEN NPO NS at 50 cc/hr Electrolytes: as above SCDs Case discussed with ER physician at length Physician Certification 2 Midnight Certification Type: Admission for Inpatient Services Order for Inpatient Services The services are ordered in accordance with Medicare regulations or non- Medicare payer requirements, as applicable. In the case of services not specified as inpatient-only, they are appropriately provided as inpatient services in accordance with the 2-midnight benchmark. Estimated LOS (days): 2 2 days is the estimated time the patient will need to remain in the hospital, assuming treatment plan goals are met and no additional complications. Post-Hospital Plan: Not yet determined Cat Lynn MD Jun 07, 2017 02:49
--- NOTE | 2017-06-07 04:16 | RADRPT ---
EXAM DATE/TIME: 06/07/2017 02:41 [facility] COMPARISON: CHEST SINGLE AP, May 02, 2017, 21:37. INDICATIONS : Shortness of breath. MEDICAL HISTORY : Chronic obstructive pulmonary disease. Asthma. SURGICAL HISTORY : None. ENCOUNTER: Initial ACUITY: 1 day PAIN SCORE: 0/10 LOCATION: Bilateral chest FINDINGS: A single view of the chest demonstrates the lungs to be symmetrically aerated without evidence of mas s, infiltrate or effusion. The cardiomediastinal contours are unremarkable. Osseous structures are intact. CONCLUSION: No acute disease. Oc Foster MD on June 07, 2017 at 4:14 Board Certified Radiologist. This report was verified electronically.
--- NOTE | 2017-06-07 05:01 | EKG ---
Date Performed: 06/06/2017 Time Performed: 20:28:48 PTAGE: 52 years EKG: SINUS TACHYCARDIA ABNORMAL RHYTHM ECG Compared to prior electrocardiogram, rate has increas ed DOCTOR: Jesus Mckinnon Interpretating Date/Time 06/07/2017 05:00:02
[2017-06-07] MEDS ORDERED: REMOVE OLD PATCH T-DERMAL SCH (06:00)
[2017-06-07] MEDS: SODIUM CHLORIDE 0.9% FLUSH 10 ML FLUSH IV FLUSH SCH ×2 (08:59→20:20)
[2017-06-07 10:21] LABS: AUTOMATED NEUTROPHIL # 7.5 TH/MM3 (1.8-7.7); BASOPHIL # 0.1 TH/MM3 (0-0.2); EOSINOPHIL # 0.2 TH/MM3 (0-0.4); EOSINOPHIL % 2.1 % (0.0-4.0); HEMATOCRIT 24.8 % (39.0-51.0); HEMO FLAGS DIFF FINAL; LYMPH % 12.9 % (9.0-44.0); LYMPHOCYTE # 1.3 TH/MM3 (1.0-4.8); MEAN CELL VOLUME 90.2 FL (80.0-100.0); MEAN CORPUSCULAR HEMOGLOBIN 29.9 PG (27.0-34.0); MEAN CORPUSCULAR HGB CONC 33.2 % (32.0-36.0); MONO % 10.4 % (0.0-8.0); NEUT % 73.6 % (16.0-70.0); PLATELET COUNT 179 TH/MM3 (150-450); RED BLOOD COUNT 2.75 MIL/MM3 (4.50-5.90); RED CELL DISTRIBUTION WIDTH 16.3 % (11.6-17.2); WHITE BLOOD COUNT 10.2 TH/MM3 (4.0-11.0)
--- NOTE | 2017-06-07 10:46 | PD.CONS ---
HPI History of Present Illness This is a 52 year old with a history of PMH of Crohn's, pancreatitis, hx EtOH abuse, cirrhosis, and a partial colectomy, who presents to the emergency room for a 8-10 day history of abdominal bloating, pain, and loose stools. He was recently hospitalized for Crohn's disease, small bowel obstruction, and abdominal pain on 05/23/17. He was evaluated by our service, as well as general surgery and colorectal surgery. He was treated with IV fluids, serial films and if no improvement, the plan was to transfer to the [facility] for possible exploratory laparoscopy and lysis of adhesions due to possible post op adhesions or perhaps recurrent Crohn's disease if no improvement. However, he then left against medical advice on 05/25/17. He states that he cannot talk about why he left right now, but then stated that he left because of the same thing that we are doing now- not feeding him or controlling his pain. He states that he has abdominal pain and distention if he eats a full regular solid meal. He states as long as he eats smaller frequent softer/liquid meals, he does okay and is demanding that a diet be ordered. He is not having any nausea or vomiting at this time. He states that as long as he eats small meals , he does not have this. He c/o diffuse abdominal pain. This is a severe diffuse abdominal pain, worse in his RLQ. He cannot describe it and says "it's just a constant pain." He has been having worsening abdominal disention. He has not had any changes in his bowel habits and states that he is having 2-3 loose stools per day, but occasionally he will have up to 7 loose stools with his Crohn's- not currently. He occasionally will have small amount of bright red rectal bleeding, independent from stool. He does note that he has been eating more than he probably should be since , eating more turkey and steak. He came to the emergency room for worsening pain. CT scan (06/06/17 ) revealed improvement and small bowel dilatation since May 23. Moderate to severe ascites with liver cirrhosis. Splenomegaly. Nonobstructing right renal calculi. Fluid in the right inguinal canal and large right hydrocele. Small hiatal hernia. He was diagnosed with Crohn's at age 30. He has not been compliant and is not currently on any medications for his Crohn's at home. His last EGD (01/06/17)---> Gastritis antrum, retroflexion revealed hiatal hernia, normal duodenum, normal esophagus, tight cricopharyngeal muscle with extensive compression in the upper esophageal sphincter. Pathology with small intestinal mucosa without significant histopathologic abnormality. Stomach antrum with minimal chronic gastritis, negative for H. Pylori. Colonoscopy (02/22/16)---> Narrowing and the anastomosis consistent with active Crohn's disease, unable to pass the scope to the ileum. Mild to moderate colitis throughout the colon most likely Crohn's Colitis. Biopsies were done from the colonic site of the anastomosis, transverse colon, descending colon, and rectosigmoid area. Pathology from transverse colon with moderate active colitis with cryptitis and crypt abscesses, negative for dysplasia or malignancy; right colon focal acute nonspecific colitis, sigmoid colon with fragments of colonic mucosa with focal adenomatous change, negative for active colitis, dysplasia, or malignancy, rectum pathology colonic mucosa without significant histopathologic abnormality. (Karmen Anderson) PFSH Past Medical History Anxiety Asthma Depression Crohn's disease Noncompliance Alcoholic hepatitis Liver cirrhosis Gastritis Gastric nodule Hx intestinal strictures Esophageal stricture Ascites Bowel obstruction Past Surgical History Colon resection approximately 22 years ago Tonsillectomy EGD Colonoscopy (Karmen Anderson) Coded Allergies: tetanus toxoid, adsorbed (Verified Allergy, Severe, Nausea/Vomiting, 05/23) Medications Allergies Coded Allergies Type Severity Reaction Last Updated Verified tetanus toxoid, adsorbed Allergy Severe Nausea/Vomiting 05/23/17 Yes Active Scripts Medications Dose Route/Sig Max Daily Dose Days Date Category Dose Instructions Tylenol-Codeine #3 (Acetaminophen-Codeine) 300-30 mg Tab 1 Tab PO Q4H PRN 20 04/13/17 Rx Lasix (Furosemide) 20 Mg Tab 20 Mg PO DAILY 04/13/17 Rx Prednisone 20 Mg Tab 20 Mg PO BID 04/13/17 Rx Miralax Powder (Polyethylene Glycol 3350 Powder) 17 Gm Powd 17 Gm PO DAILY 03/03/17 Rx Mix and dissolve one measuring cap-ful (17 grams) in water or juice. Pantoprazole (Pantoprazole Sodium) 40 Mg Tab 40 Mg PO DAILY 03/03/17 Rx K-Tab (Potassium Chloride) 20 Meq Tab 1 Tab PO BID 8/25/17 Rx Pentasa (Mesalamine) 250 Mg Caper 1,000 Mg PO BID 30 03/03/17 Rx Family History Mother with history of [place], CAD, CVA Father had prostate cancer Social History States he quit drinking. Smokes 1 PPD. No illicit drug use. (AndersonKarmen) Review of Systems Constitutional: DENIES: Fatigue, Fever, Weight loss, Chills Respiratory: DENIES: Cough Cardiovascular: DENIES: Chest pain Gastrointestinal: COMPLAINS OF: Abdominal pain, Diarrhea, Swelling of Abdomen, DENIES: Nausea, Vomiting Hematologic/lymphatic: COMPLAINS OF: Bruising Neurologic: DENIES: Headache Psychiatric: DENIES: Confusion (Karmen Anderson) GI Exam Vitals I&O Vital Signs Date Time Temp Pulse Resp B/P (MAP) Pulse Ox O2 Delivery O2 Flow Rate FiO2 06/07/17 08:00 97.8 94 16 105/66 (79) 93 06/07/17 07:00 Room Air 06/07/17 05:10 97.6 89 18 92/63 (73) 92 06/07/17 00:30 06/07/17 00:10 Room Air 06/07/17 00:10 98.0 95 18 92/62 (72) 96 06/06/17 22:30 94 18 112/72 (85) 98 Room Air 06/06/17 20:47 (76) 06/06/17 20:46 20 98 Room Air 06/06/17 19:48 98.6 116 18 112/59 (76) 98 Room Air I/O 06/06/17 06/06/17 06/06/17 06/07/17 06/07/17 06/07/17 07:00 15:00 23:00 07:00 15:00 23:00 Intake Total 419 ml Output Total 300 ml Balance 119 ml Intake Oral 100 ml IV Total 319 ml Output Urine Total 300 ml # Bowel Movements 0 Imaging Last Impressions Cyst Biopsy Asp-Paracentesis US 06/07/17 0000 Signed Impressions: Service Date/Time: Wednesday, June 07, 2017 10:40 - CONCLUSION: Uncomplicated ultrasound guided paracentesis. Lalo Zavala Jr., MD Chest X-Ray 06/07/17 0000 Signed Impressions: Service Date/Time: Wednesday, June 07, 2017 02:41 - CONCLUSION: No acute disease. Oc Foster MD Abdomen/Pelvis CT 06/06/172034 Signed Impressions: Service Date/Time: Tuesday, June 06, 2017 21:32 - CONCLUSION: 1. Improvement in small bowel dilatation since May 23. 2. Moderate to severe ascites with liver cirrhosis. Splenomegaly. 3. Nonobstructing right renal calculi. 4. Fluid in right inguinal canal and large right hydrocele. 5. Small hiatal hernia. Dung Ellsworth MD Laboratory Test 06/06/17 20:35 06/06/17 20:45 06/06/17 22:15 06/07/17 09:30 White Blood Count 14.8 TH/MM3 10.2 TH/MM3 Red Blood Count 2.82 MIL/MM3 2.75 MIL/MM3 Hemoglobin 8.0 GM/DL 8.2 GM/DL Hematocrit 25.1 % 24.8 % Mean Corpuscular Volume 88.8 FL 90.2 FL Mean Corpuscular Hemoglobin 28.4 PG 29.9 PG Mean Corpuscular Hemoglobin Concent 31.9 % 33.2 % Red Cell Distribution Width 16.6 % 16.3 % Platelet Count 224 TH/MM3 179 TH/MM3 Mean Platelet Volume 7.5 FL 7.5 FL Neutrophils (%) (Auto) 69.6 % 73.6 % Lymphocytes (%) (Auto) 16.9 % 12.9 % Monocytes (%) (Auto) 10.5 % 10.4 % Eosinophils (%) (Auto) 2.1 % 2.1 % Basophils (%) (Auto) 0.9 % 1.0 % Neutrophils # (Auto) 10.3 TH/MM3 7.5 TH/MM3 Lymphocytes # (Auto) 2.5 TH/MM3 1.3 TH/MM3 Monocytes # (Auto) 1.6 TH/MM3 1.1 TH/MM3 Eosinophils # (Auto) 0.3 TH/MM3 0.2 TH/MM3 Basophils # (Auto) 0.1 TH/MM3 0.1 TH/MM3 CBC Comment DIFF FINAL DIFF FINAL Differential Comment Blood Urea Nitrogen 9 MG/DL Creatinine 0.80 MG/DL Random Glucose 64 MG/DL Total Protein 5.7 GM/DL Albumin 2.4 GM/DL Calcium Level 7.7 MG/DL Alkaline Phosphatase 233 U/L Aspartate Amino Transf (AST/SGOT) 24 U/L Alanine Aminotransferase (ALT/SGPT) 11 U/L Total Bilirubin 0.4 MG/DL Sodium Level 141 MEQ/L Potassium Level 3.4 MEQ/L Chloride Level 110 MEQ/L Carbon Dioxide Level 23.1 MEQ/L Anion Gap 8 MEQ/L Estimat Glomerular Filtration Rate 102 ML/MIN Lipase 179 U/L Lactic Acid Level 1.7 mmol/L Prothrombin Time 13.8 SEC Prothromb Time International Ratio 1.2 RATIO Activated Partial Thromboplast Time 31.7 SEC Urine Color LIGHT-RED Urine Turbidity CLOUDY Urine pH 6.0 Urine Specific [place] 1.031 Urine Protein 30 mg/dL Urine Glucose (UA) NEG mg/dL Urine Ketones NEG mg/dL Urine Occult Blood LARGE Urine Nitrite NEG Urine Bilirubin NEG Urine Urobilinogen 2.0 MG/DL Urine Leukocyte Esterase SMALL Urine RBC /hpf Urine WBC 4 /hpf Urine WBC Clumps RARE Urine Renal Epithelial Cells 6 /hpf Urine Amorphous Sediment RARE Urine Mucus FEW /lpf Microscopic Urinalysis Comment CULTURE INDICATED Date/Time Source Procedure Growth Status 06/06/17 22:15 Urine Clean Catch Urine Culture Pending Received Physical Examination HEENT: Normocephalic; atraumatic; no jaundice. CHEST: CTA CARDIAC: RRR ABDOMEN: Soft, mildly distended, diffuse tenderness; no hepatosplenomegaly; bowel sounds hypoactive. EXTREMITIES: No clubbing, cyanosis, or edema. SKIN: Normal; no rash; no jaundice. FERMENTER: No focal deficits; alert and oriented times three. (Karmen Anderson) Assessment and Plan Plan ASSESSMENT: - Abdominal pain, distention, multifactorial r/t ascites and some degree of sbo. He was hospitalized from 05/23 until 05/25 when he left AMA because he was not allowed to eat/inadequate pain meds. He was seen by Dr. Lane during that hospitalization and the plan was for possible exploratory laparoscopy with PEREZ if no improvement or persistent sbo. Pt left A and admits to overindulging for Thanksgiving. He has had worsening distention/abdominal pain. CT scan (06/06/17) revealed improvement and small bowel dilatation since May 23. Moderate to severe ascites with liver cirrhosis. Splenomegaly. Nonobstructing right renal calculi. Fluid in the right inguinal canal and large right hydrocele. Small hiatal hernia. Likely his pain is a combination from the ascites and some degree of psbo. He does not this has improved some since his paracentesis. He is requesting a regular diet. He notes that he has worsening pain, distention, n/v, if he eats a full solid meal, but does fine as long as he takes small bites at a time with soft/liquid diet. - Ascites. S/P US guided paracentesis with 4,900cc of fluid. Add Lasix, Spironolactone - Crohn's Dz, noncompliant, not on any home meds. Dx at age 30. Not on any regular meds- noncompliant. Add Pentasa, Solumedrol. - Anemia, normocytic. EGD (01/06/17)---> Gastritis antrum, retroflexion revealed hiatal hernia, normal duodenum, normal esophagus, tight cricopharyngeal muscle with extensive compression in the upper esophageal sphincter. Pathology with small intestinal mucosa without significant histopathologic abnormality. Stomach antrum with minimal chronic gastritis, negative for H. Pylori. Colonoscopy (02/22/16)---> Narrowing and the anastomosis consistent with active Crohn's disease, unable to pass the scope to the ileum. Mild to moderate colitis throughout the colon most likely Crohn's Colitis. Biopsies were done from the colonic site of the anastomosis, transverse colon, descending colon, and rectosigmoid area. Pathology from transverse colon with moderate active colitis with cryptitis and crypt abscesses, negative for dysplasia or malignancy; right colon focal acute nonspecific colitis, sigmoid colon with fragments of colonic mucosa with focal adenomatous change, negative for active colitis, dysplasia, or malignancy, rectum pathology colonic mucosa without significant histopathologic abnormality. No active bleeding. HH 8.2/24.8. - Liver cirrhosis. T. Bili 0.5, AST 21, ALT 11, ALk PHosph 207. - Depression, Anxiety, Asthma, per attending. PLAN: - Full liquids - Pentasa 1000mg po QID - Solumedrol 40mg IV daily - Lasix 40mg po daily - Spironolactone 50mg po daily - Monitor HH - Transfuse as necessary - KUB in am - CBC, CMP in am - Supportive care - FUrther recommendations to follow based on results of above - Pt seen and examined by Dr. Pino and myself and this note is written on her behalf (Karmen Anderson) Physician Comments agree with above consult dr Lane in (Elizabeth Pino MD) AndersonKarmen koch Sophie HOYOS Jun 07, 2017 10:46 Elizabeth Pino MD Jun 07, 2017 20:47
[2017-06-07 10:49] LABS: CALCIUM-PROTEIN CORRECTED 8.5 MG/DL (8.5-10.1); POTASSIUM 3.9 MEQ/L (3.5-5.1); TOTAL BILIRUBIN ADULT 0.5 MG/DL (0.2-1.0)
--- NOTE | 2017-06-07 13:03 | RADRPT ---
EXAM DATE/TIME: 06/07/2017 10:40 [facility] COMPARISON: US GUIDED ABD PARACENTESIS, April 11, 2017, 7:42. INDICATIONS : Ascites. MEDICAL HISTORY : Chronic obstructive pulmonary disease. Gastroesophageal reflux disease. Dyspnea. Pancreatitis. Hiata l hernia. Crohn's disease. arthritis. liver disease. mrsa. SURGICAL HISTORY : Tonsillectomy. Colon resection. Right hand surgery. ENCOUNTER: Subsequent ACUITY: 2 months PAIN SCORE: 6/10 LOCATION: Right lower quadrant FLUID: Total volume of 4,900 cc of clear, yellow fluid was removed. Fluid was discarded. Paracentesis was therapeutic only. Post procedure scanning reveals no hematoma or other complication. TECHNIQUE: 1. Ultrasound guidance for abdominal paracentesis. 2. Paracentesis. The risks, benefits, and alternatives to ultrasound guided paracentesis were explained to the patient in detail including the risk of bleeding and infection. Written and verbal informed consent was obt ained. With the patient on the ultrasound table, ultrasound imaging was used to select the most appropriate approach for paracentesis. Overlying skin was prepped and draped in the usual sterile fashion and wi th a local anesthetic, a dermatotomy was made with an 11 blade scalpel. A 6 [place] [id number] ca theter was introduced into the peritoneal cavity and fluid was collected. The patient tolerated the procedure well and left the ultrasound suite in stable condition. CONCLUSION: Uncomplicated ultrasound guided paracentesis. Lalo Zavala Jr., MD on June 07, 2017 at 12:57 Board Certified Radiologist. This report was verified electronically.
[2017-06-07] MEDS: SPIRONOLACTONE 50 MG TAB PO SCH (15:06)
--- NOTE | 2017-06-07 17:14 | HHI.PR ---
Addendum to Inpatient Note Addendum Reason: Additional Documentation Additional Information The patient is status post paracentesis. States abdominal pain still present but much improved. Patient is awake alert oriented 3, lungs are clear bilaterally, abdomen is soft, mildly distended and diffusely mildly tender to palpation. There is no edema in lower extremities. Abdominal pain, distention likely multifactorial due to situs some degree of small bowel obstruction multiple patient states he is passing gas and having bowel movements. GI consulted. Patient placed on full liquids. Continue. Possibly patient also has some degree of cross exacerbation. Agree with starting the patient on IV Solu-Medrol and Pentasa. We'll follow-up GI recommendations and replace electrolytes as needed. Hypokalemia for now resolved after repletion. Total calcium low at 7.4, however protein corrected calcium is 8.5. Billy Escalante MD Jun 07, 2017 17:14
[2017-06-07] MEDS: MESALAMINE 250 MG CAP PO SCH ×2 (17:48→20:20)
[2017-06-07] MEDS: ALPRAZolam 0.5 MG TAB PO PRN (20:19)
[2017-06-07] MEDS: NICOTINE 21 MG/24 HR PATCH T-DERMAL SCH (20:20)
[2017-06-08] VITALS (13 sets, daily range): BP systolic 95–120; BP diastolic 53–68; PULSE 93–108; RESP 16–20; TEMP 97.8–98.6; O2SAT 94–100
[2017-06-08] MEDS: MORPHINE SULFATE 2 MG/ML INJ IV PUSH PRN ×6 (01:59→20:58)
[2017-06-08] MEDS ORDERED: NICOTINE 14 MG/24 HR PATCH T-DERMAL SCH (06:00)
[2017-06-08 07:00] LABS: AUTOMATED NEUTROPHIL # 7.7 TH/MM3 (1.8-7.7); BASOPHIL # 0.1 TH/MM3 (0-0.2); BASOPHIL % 0.9 % (0.0-2.0); EOSINOPHIL # 0.2 TH/MM3 (0-0.4); EOSINOPHIL % 1.9 % (0.0-4.0); HEMATOCRIT 22.7 % (39.0-51.0); HEMO FLAGS DIFF FINAL; LYMPHOCYTE # 1.7 TH/MM3 (1.0-4.8); MEAN CORPUSCULAR HEMOGLOBIN 29.6 PG (27.0-34.0); MEAN CORPUSCULAR HGB CONC 33.2 % (32.0-36.0); MONO % 10.9 % (0.0-8.0); NEUT % 70.3 % (16.0-70.0); PLATELET COUNT 162 TH/MM3 (150-450); RED BLOOD COUNT 2.55 MIL/MM3 (4.50-5.90); RED CELL DISTRIBUTION WIDTH 15.9 % (11.6-17.2); WHITE BLOOD COUNT 10.9 TH/MM3 (4.0-11.0)
[2017-06-08 07:20] LABS: ALT (GPT) 15 U/L (12-78); ANION GAP 7 MEQ/L (5-15); AST (GOT) 18 U/L (15-37); BICARBONATE 22.8 MEQ/L (21.0-32.0); BLOOD UREA NITROGEN 5 MG/DL (7-18); CHLORIDE 108 MEQ/L (98-107); GLOMERULAR FILTRATION RATE 240 ML/MIN (>89); POTASSIUM 3.6 MEQ/L (3.5-5.1); SODIUM (NA) 138 MEQ/L (136-145)
[2017-06-08 07:22] LABS: ALKALINE PHOSPHATASE 218 U/L (45-117); TOTAL BILIRUBIN ADULT 0.6 MG/DL (0.2-1.0)
--- NOTE | 2017-06-08 07:24 | RADRPT ---
EXAM DATE/TIME: 06/08/2017 06:47 [facility] COMPARISON: CT ABDOMEN & PELVIS W CONTRAST, June 06, 2017, 21:32. ABDOMEN FLAT & UPRIGHT, May 25, 2017, 8:04. ABDOMEN KUB ONLY, January 05, 2017, 10:43. INDICATIONS : Abdominal discomfort, evaluate obstruction MEDICAL HISTORY : Pancreatitis. Crohn's disease. Hiatal hernia. ascites SURGICAL HISTORY : Colon resection. ENCOUNTER: Subsequent ACUITY: 4 - 6 days PAIN SCORE: 3/10 LOCATION: Bilateral abdomen FINDINGS: There has been interval improvement of the air filled dilated loops of small bowel compared to . Minimal residual air-filled dilatation is noted within a loop of small bowel within the central a bdomen on today's examination. No colonic dilatation is noted. No free intraperitoneal air is noted. CONCLUSION: Interval improvement of air-filled dilated loops of small bowel compared 06/06/17 with minimal residu al air-filled dilatation of a single loop of small bowel within the central abdomen on today's examin ation. García Devine MD on June 08, 2017 at 7:19 Board Certified Radiologist. This report was verified electronically.
[2017-06-08] MEDS: SODIUM CHLORIDE 0.9% FLUSH 10 ML FLUSH IV FLUSH SCH ×2 (08:24→20:13)
[2017-06-08] MEDS: methylPREDNISolone SOD SUCC 40 MG/1 ML VIAL IV PUSH SCH (08:24)
[2017-06-08] MEDS: SPIRONOLACTONE 50 MG TAB PO SCH (08:24)
[2017-06-08] MEDS: MESALAMINE 250 MG CAP PO SCH ×4 (08:24→20:13)
[2017-06-08] MEDS: FUROSEMIDE 40 MG TAB PO SCH (08:24)
[2017-06-08] MEDS: REMOVE OLD PATCH T-DERMAL SCH (08:25)
[2017-06-08] MEDS: NICOTINE 21 MG/24 HR PATCH T-DERMAL SCH (08:25)
--- NOTE | 2017-06-08 09:41 | HHI.GIFU ---
Subjective Remarks Up walking in room Patient's hungry this a.m. Afebrile temp 98.2 Blood pressure 95/53 Right lower quadrant abdominal pain improved but still persist, radiates over to left lower quadrant (Ivelisse Puga) Objective Vitals I&O Vital Signs Date Time Temp Pulse Resp B/P (MAP) Pulse Ox O2 Delivery O2 Flow Rate FiO2 06/08/17 08:00 98.2 95 18 95/53 (67) 98 06/08/17 04:00 98.0 95 20 101/58 (72) 94 06/08/17 00:30 105/58 (74) 06/08/17 00:00 98.3 93 18 95/53 (67) 95 06/07/17 20:45 Room Air 06/07/17 20:00 98.2 104 20 112/55 (74) 96 06/07/17 16:00 98.8 100 18 103/57 (72) 96 06/07/17 12:16 98.6 77 14 105/66 (79) 100 06/07/17 12:01 98.0 83 18 105/67 (80) 94 06/07/17 10:54 97.0 89 14 111/67 (82) 98 I/O 06/07/17 06/07/17 06/07/17 06/08/17 06/08/17 06/08/17 07:00 15:00 23:00 07:00 15:00 23:00 Intake Total 419 ml 1639 ml 360 ml Output Total 300 ml 1000 ml 300 ml Balance 119 ml 639 ml 60 ml Intake Oral 100 ml 360 ml 360 ml IV Total 319 ml 1279 ml Output Urine Total 300 ml 1000 ml 300 ml # Bowel Movements 0 1 2 Laboratory Laboratory Tests Test 06/08/17 06:03 White Blood Count 10.9 Red Blood Count 2.55 Hemoglobin 7.5 Hematocrit 22.7 Mean Corpuscular Volume 89.0 Mean Corpuscular Hemoglobin 29.6 Mean Corpuscular Hemoglobin Concent 33.2 Red Cell Distribution Width 15.9 Platelet Count 162 Mean Platelet Volume 7.9 Neutrophils (%) (Auto) 70.3 Lymphocytes (%) (Auto) 16.0 Monocytes (%) (Auto) 10.9 Eosinophils (%) (Auto) 1.9 Basophils (%) (Auto) 0.9 Neutrophils # (Auto) 7.7 Lymphocytes # (Auto) 1.7 Monocytes # (Auto) 1.2 Eosinophils # (Auto) 0.2 Basophils # (Auto) 0.1 CBC Comment DIFF FINAL Differential Comment Blood Urea Nitrogen 5 Creatinine 0.38 Random Glucose 80 Total Protein 4.8 Albumin 2.0 Calcium Level 7.5 Alkaline Phosphatase 218 Aspartate Amino Transf (AST/SGOT) 18 Alanine Aminotransferase (ALT/SGPT) 15 Total Bilirubin 0.6 Sodium Level 138 Potassium Level 3.6 Chloride Level 108 Carbon Dioxide Level 22.8 Anion Gap 7 Estimat Glomerular Filtration Rate 240 Date/Time Source Procedure Growth Status 06/06/17 22:15 Urine Clean Catch Urine Culture - Final <10,000 CFU/ML GRAM POSITIVE ARACELIS Complete Imaging Last Impressions Abdomen X-Ray 06/08/17 0600 Signed Impressions: Service Date/Time: May 06:47 - CONCLUSION: Interval improvement of air-filled dilated loops of small bowel compared 06/06/17 with minimal residual air-filled dilatation of a single loop of small bowel within the central abdomen on today's examination. García Devine MD Cyst Biopsy Asp-Paracentesis US 06/07/17 0000 Signed Impressions: Service Date/Time: Wednesday, June 07, 2017 10:40 - CONCLUSION: Uncomplicated ultrasound guided paracentesis. Lalo Zavala Jr., MD Chest X-Ray 06/07/17 0000 Signed Impressions: Service Date/Time: Wednesday, June 07, 2017 02:41 - CONCLUSION: No acute disease. Oc Foster MD Abdomen/Pelvis CT [id number]/06/[id number] Signed Impressions: Service Date/Time: Tuesday, June 06, 2017 21:32 - CONCLUSION: 1. Improvement in small bowel dilatation since May 23. 2. Moderate to severe ascites with liver cirrhosis. Splenomegaly. 3. Nonobstructing right renal calculi. 4. Fluid in right inguinal canal and large right hydrocele. 5. Small hiatal hernia. Dung Ellsworth MD Physical Exam HEENT: Pupils round and reactive to light; normocephalic thin face; atraumatic; no jaundice. Throat is clean NECK: Neck is supple, no JVD, no lymphadenopathy. CHEST: Chest is clear to auscultation and percussion. CARDIAC: Regular rate and rhythm with no murmur gallop or rubs. ABDOMEN: Soft, mild right lower quadrant pain radiating into left lower quadrant, no hepatosplenomegaly; bowel sounds are soft in all four quadrants. EXTREMITIES: No clubbing, cyanosis, or edema. SKIN: Normal; no rash; no jaundice. [place] [place]: No focal deficits; alert and oriented times three., Speech clear (Ivelisse Puga) Assessment and Plan Plan ASSESSMENT: - Abdominal pain distention, multifactorial r/t ascites and some degree of sbo. Recent history shows patient was hospitalized from 05/23 until 05/25 when he left AMA because he was not allowed to eat/inadequate pain meds. He was seen by Dr. Lane during that hospitalization and the plan was for possible exploratory laparoscopy with PEREZ if no improvement or persistent sbo. Pt left AMA and admits to overindulging for Thanksgiving. He has had worsening distention/abdominal pain. CT scan (06/06/17) revealed improvement and small bowel dilatation since May 23. Moderate to severe ascites with liver cirrhosis. Splenomegaly. Nonobstructing right renal calculi. Fluid in the right inguinal canal and large right hydrocele. Small hiatal hernia. Likely his pain is a combination from the ascites and some degree of psbo. Patient underwent paracentesis on 06-07-, tolerated procedure well and states he is less short of breath as well as improved abdominal pain. Patient's currently on full liquid diet and tolerating without nausea or vomiting, open to have his diet advanced today. States he is hungry Abdominal x-rays done on show-Interval improvement of air-filled dilated loops of small bowel compared 06/06/17 with minimal residual air-filled dilatation of a single loop of small bowel within the central abdomen on today' s examination. Colorectal consult from Dr. Lane pending today. Will keep patient on full liquids for now pending any further testing needed. Diet advance per Dr. Lane if okay. - Ascites. S/P US guided paracentesis with 4,900cc of fluid on 06/07/17 Add Lasix, Spironolactone. Feeling much better today with decreased abdominal pain - Crohn's Dz, noncompliant, not on any home meds. Dx at age 30. Add Pentasa, Solumedrol. - Anemia, normocytic. EGD (01/06/17)---> Gastritis antrum, retroflexion revealed hiatal hernia, normal duodenum, normal esophagus, tight cricopharyngeal muscle with extensive compression in the upper esophageal sphincter. Pathology with small intestinal mucosa without significant histopathologic abnormality. Stomach antrum with minimal chronic gastritis, negative for H. Pylori. Colonoscopy (02/22/16)---> Narrowing and the anastomosis consistent with active Crohn's disease, unable to pass the scope to the ileum. Mild to moderate colitis throughout the colon most likely Crohn's Colitis. Biopsies were done from the colonic site of the anastomosis, transverse colon, descending colon, and rectosigmoid area. Pathology from transverse colon with moderate active colitis with cryptitis and crypt abscesses, negative for dysplasia or malignancy; right colon focal acute nonspecific colitis, sigmoid colon with fragments of colonic mucosa with focal adenomatous change, negative for active colitis, dysplasia, or malignancy, rectum pathology colonic mucosa without significant histopathologic abnormality. Hemoglobin 7.5, down from 8.2 on 06-07, patient denies any dizziness, shortness of breath has improved since paracentesis, patient is ambulating in the room. - Liver cirrhosis. Alkaline phosphatase 218 - Depression, Anxiety, Asthma, per attending. PLAN: - Full liquids, advance per Dr. Lane after consult if okay - Pentasa 1000mg po QID - Solumedrol 40mg IV daily - Lasix 40mg po daily - Spironolactone 50mg po daily - Monitor HH, recheck cbc in a.m. - Transfuse as necessary - Abdominal x-ray shows - Monitor labs - Supportive care - FUrther recommendations to follow based on results of above - Pt seen and examined by Dr. Pino and myself and this note is written on her behalf (Ivelisse Puga) Ivelisse Puga Jun 08, 2017 09:41 Elizabeth Pino MD Jun 08, 2017 18:49
[2017-06-08] MEDS ORDERED: SODIUM CHLORID 0.9% 500 ML INJ 500 ML IV ONE (10:45)
[2017-06-08] MEDS: ALPRAZolam 0.5 MG TAB PO PRN ×2 (15:09→23:12)
--- NOTE | 2017-06-08 17:20 | HHI.PR ---
Subjective Remarks Denies further melena. states abdominal pain is better. hemoglobin is trending down. c/o pain in lower abdomen, pain in left upper quadrant resolved. Objective Vitals Vital Signs Date Time Temp Pulse Resp B/P (MAP) Pulse Ox O2 Delivery O2 Flow Rate FiO2 06/08/17 15:57 98.3 104 18 115/66 (82) 97 06/08/17 12:00 97.8 95 18 108/68 (81) 97 06/08/17 08:00 98.2 95 18 95/53 (67) 98 06/08/17 07:00 Room Air 06/08/17 04:00 98.0 95 20 101/58 (72) 94 06/08/17 00:30 105/58 (74) 06/08/17 00:00 98.3 93 18 95/53 (67) 95 06/07/17 20:45 Room Air 06/07/17 20:00 98.2 104 20 112/55 (74) 96 I/O 06/07/17 06/07/17 06/07/17 06/08/17 06/08/17 06/08/17 07:00 15:00 23:00 07:00 15:00 23:00 Intake Total 419 ml 1639 ml 360 ml 500 ml Output Total 300 ml 1000 ml 300 ml 550 ml Balance 119 ml 639 ml 60 ml -50 ml Intake Oral 100 ml 360 ml 360 ml IV Total 319 ml 1279 ml 500 ml Output Urine Total 300 ml 1000 ml 300 ml 550 ml # Bowel Movements 0 1 2 Result Diagram: 06/08/17 0603 06/08/17 0603 Imaging Last Impressions Abdomen X-Ray 06/08/17 0600 Signed Impressions: Service Date/Time: May 06:47 - CONCLUSION: Interval improvement of air-filled dilated loops of small bowel compared 06/06/17 with minimal residual air-filled dilatation of a single loop of small bowel within the central abdomen on today's examination. García Devine MD Cyst Biopsy Asp-Paracentesis US 06/07/17 0000 Signed Impressions: Service Date/Time: Wednesday, June 07, 2017 10:40 - CONCLUSION: Uncomplicated ultrasound guided paracentesis. Lalo Zavala Jr., MD Chest X-Ray 06/07/17 0000 Signed Impressions: Service Date/Time: Wednesday, June 07, 2017 02:41 - CONCLUSION: No acute disease. Oc Foster MD Abdomen/Pelvis CT [id number]/06/[id number] Signed Impressions: Service Date/Time: Tuesday, June 06, 2017 21:32 - CONCLUSION: 1. Improvement in small bowel dilatation since May 23. 2. Moderate to severe ascites with liver cirrhosis. Splenomegaly. 3. Nonobstructing right renal calculi. 4. Fluid in right inguinal canal and large right hydrocele. 5. Small hiatal hernia. Dung Ellsworth MD Objective Remarks AAOx3 PERRLA Clear lungs BL Abdomen soft, mildly tender to palpation of lower abdomen, with mild distention. No edema in lower extremities Medications and IVs Current Medications Medications (Trade) Dose Ordered Sig/Vikki Route Start Time Stop Time Status Last Admin (NS Flush) 2 ml UNSCH PRN IV FLUSH 06/06/17 23:30 (NS Flush) 2 ml BID IV FLUSH 06/07/17 09:00 06/08/17 08:24 (Zofran Inj) 4 mg Q6H PRN IVP 06/06/17 23:30 (Narcan Inj) 0.4 mg UNSCH PRN IV PUSH 06/06/17 23:30 (Dulcolax Supp) 10 mg DAILY PRN RECTAL 06/06/17 23:30 (Duoneb Neb) 1 ampule Q4HR NEB PRN NEB 06/06/17 23:30 (Morphine Inj) 2 mg Q3H PRN IV PUSH 06/07/17 02:30 06/08/17 13:17 (Pentasa Sr) 1,000 mg QID PO 06/07/17 18:00 06/08/17 13:17 (SoluMEDROL INJ) 40 mg DAILY IV PUSH 06/08/17 09:00 06/08/17 08:24 (Lasix) 40 mg DAILY PO 06/08/17 09:00 Future Hold 06/08/17 08:24 (Aldactone) 50 mg DAILY PO 06/07/17 14:15 Future Hold 06/08/17 08:24 (Xanax) 0.5 mg Q8H PRN PO 06/07/17 18:00 06/08/17 15:09 (Habitrol 21 Mg Patch.24 Hr) 1 patch DAILY T-DERMAL 06/07/17 18:00 06/08/17 08:25 Miscellaneous Information 1 DAILY T-DERMAL 06/07/17 18:00 06/08/17 08:25 Urinary Catheter: No Vascular Central Line Catheter: No A/P Problem List: (1) Abdominal pain ICD Code: R10.9 - Unspecified abdominal pain Plan: CT abdomen and pelvis showed improvement in small bowel dilation is May 23. Moderate to severe ascites with liver cirrhosis. Splenomegaly. Nonobstructed right renal calculi. Fluid in right inguinal canal large right hydrocele. Small hiatal hernia. The patient was admitted to the medical floor. The patient is noncompliant with medication. Pain likely secondary to ascites and possibly secondary to Crohn's disease. Hemoccult was obtained in the ED and was positive. GI consulted, recommendations appreciated. Patient started on IV Solu-Medrol and Pentasa for treatment of suspected Crohn's exacerbation. Rectal surgery has also been consulted. Ascitic fluid no sent for analysis. Will start on IV Rocephin empirically to cover for SBP. (2) Ascites ICD Code: R18.8 - Other ascites Plan: Secondary to liver cirrhosis. The patient status post paracentesis with extraction of near 5 L of ascitic fluid. Furosemide and spironolactone was held due to hypotension and 500 ML's of IV normal saline bolus were ordered earlier today by me. BP improving. (3) Leukocytosis ICD Code: D72.829 - Elevated white blood cell count, unspecified Plan: Leukocytosis likely secondary to stress and pain. WBC on admission 14.8 K, now trending down to 10.9. Patient is afebrile. (4) Hypokalemia ICD Code: E87.6 - Hypokalemia Plan: Mild hypokalemia with potassium 3.4 on admission. Now improved after repletion. Continue to monitor BMP and potassium levels. (5) Anemia ICD Code: D64.9 - Anemia, unspecified Plan: Hemoglobin trending down from 8.0 on admission to 7.5 on 06/08/17. Patient states he feels very tired. I will transfuse 1 unit of blood and continue to monitor CBC. I will also check iron studies. (6) Tobacco abuse ICD Code: Z72.0 - Tobacco use Plan: Patient started on nicotine patch, continue. Advised smoking cessation. (7) Crohns disease ICD Code: K50.90 - Crohn's disease, unspecified, without complications Plan: No evidence of Crohn's exacerbation on CT of the abdomen. However the patient is being with IV Solu-Medrol and Pentasa as per GI recommendations. (8) UTI (urinary tract infection) ICD Code: N39.0 - Urinary tract infection, site not specified Plan: Urinalysis obtained on 05/29/17 was positive for a urinary tract infection. I will start the patient IV Rocephin and follow-up urine cultures. Assessment and Plan GI prophylaxis: I will start on Protonix. DVT prophylaxis: SCDs, no chemoprophylaxis given anemia, stool guaiac positive stool obtained in the ED and downtrending hemoglobin. Discharge Planning Continue to monitor in the medical floor. Pending GI clearance, hemoglobin and clinical improvement. Billy Escalante MD Jun 08, 2017 17:20
[2017-06-08] MEDS ORDERED: ACETAMINOPHEN 325 MG TAB PO PRN (17:30)
[2017-06-08] MEDS ORDERED: diphenhydrAMINE HCL 25 MG CAP PO PRN (17:30)
[2017-06-08] MEDS ORDERED: SODIUM CHLOR 0.9% 250 ML INJ 250 ML IV ONE (17:30)
[2017-06-08] MEDS ORDERED: cefTRIAXone INJ 2,000 MG in SODIUM CHLORIDE 0.9% INJ 100 ML IV SCH (18:00)
[2017-06-08] MEDS ORDERED: FUROSEMIDE 20 MG/2 ML VIAL IV PUSH PRN (18:30)
[2017-06-08] MEDS ORDERED: MAGNESIUM CITRATE SOLN 300 ML BTL PO ONE (23:30)
[2017-06-09] VITALS: BP 120/58; PULSE 108; RESP 18; TEMP 98.6; O2SAT 94
[2017-06-09] MEDS: MORPHINE SULFATE 2 MG/ML INJ IV PUSH PRN ×5 (00:27→21:18)
[2017-06-09 04:00] VITALS: BP 110/57; PULSE 110; RESP 20; TEMP 98.8; O2SAT 98
[2017-06-09 07:55] LABS: MEAN CELL VOLUME 87.6 FL (80.0-100.0); MEAN CORPUSCULAR HEMOGLOBIN 29.3 PG (27.0-34.0); MEAN CORPUSCULAR HGB CONC 33.4 % (32.0-36.0); PLATELET COUNT 136 TH/MM3 (150-450); REVIEW FLAG FINAL; WHITE BLOOD COUNT 15.9 TH/MM3 (4.0-11.0)
[2017-06-09 08:10] VITALS: BP 94/54; PULSE 98; RESP 18; TEMP 98.2; O2SAT 94
[2017-06-09] MEDS: REMOVE OLD PATCH T-DERMAL SCH (09:00)
[2017-06-09] MEDS: MESALAMINE 250 MG CAP PO SCH ×4 (09:41→21:19)
[2017-06-09] MEDS: methylPREDNISolone SOD SUCC 40 MG/1 ML VIAL IV PUSH SCH (09:41)
[2017-06-09] MEDS: NICOTINE 21 MG/24 HR PATCH T-DERMAL SCH (09:42)
[2017-06-09] MEDS: SODIUM CHLORIDE 0.9% FLUSH 10 ML FLUSH IV FLUSH SCH ×2 (09:42→21:19)
[2017-06-09] MEDS ORDERED: PROPOFOL 200 MG/20 ML AMP IV ONE (12:00)
[2017-06-09] MEDS ORDERED: LIDOCAINE HCL 1% PF 5 ML SYRINGE OTHER ONE (12:00)
[2017-06-09] MEDS ORDERED: PHENYLEPH/NS 1000 MCG/10 ML SYR IV ONE (12:00)
[2017-06-09 12:10] VITALS: BP 107/61; PULSE 97; RESP 18; TEMP 98; O2SAT 98
[2017-06-09] MEDS: ALPRAZolam 0.5 MG TAB PO PRN (15:45)
[2017-06-09 16:10] VITALS: BP 107/62; PULSE 98; RESP 16; TEMP 97.7; O2SAT 99
[2017-06-09] MEDS ORDERED: DO NOT ADM ANY ANTICOAGULANT DRUGS PRN (17:09)
--- NOTE | 2017-06-09 18:34 | HHI.PR ---
Subjective Remarks deferred entry - aptient seen at 11:40 am Patient c/o having chills yesterday denies cp/sob. Denies nausea vomiting or abdominal pain. BP noted to be low with SBP inthe 90's Objective Vitals Vital Signs Date Time Temp Pulse Resp B/P (MAP) Pulse Ox O2 Delivery O2 Flow Rate FiO2 06/09/17 17:30 97.5 79 13 96/53 (67) 98 Room Air 06/09/17 17:15 80 15 96/55 (69) 99 Room Air 06/09/17 17:08 97.5 82 15 91/54 (66) 98 Room Air 06/09/17 12:10 98.0 97 18 107/61 (76) 98 06/09/17 08:10 98.2 98 18 94/54 (67) 94 06/09/17 04:00 98.8 110 20 110/57 (74) 98 06/09/17 00:00 94 Nasal Cannula 2.00 06/09/17 00:00 98.6 108 18 120/58 (78) 94 06/08/17 23:18 98.6 108 18 120/58 94 06/08/17 21:57 98.3 102 16 106/58 98 06/08/17 21:30 98.1 98 16 107/66 97 06/08/17 20:57 98.3 98 18 100/57 97 06/08/17 20:25 98.3 94 16 106/68 97 06/08/17 20:14 98.3 100 16 103/67 100 06/08/17 20:00 98.3 100 16 103/67 (79) 100 06/08/17 20:00 98 Room Air I/O 06/08/17 06/08/17 06/08/17 06/09/17 06/09/17 06/09/17 07:00 15:00 23:00 07:00 15:00 23:00 Intake Total 360 ml 500 ml 1060 ml 500 ml 1000 ml Output Total 300 ml 550 ml 1100 ml Balance 60 ml -50 ml -40 ml 500 ml 1000 ml Intake Oral 360 ml 960 ml 0 ml IV Total 500 ml 100 ml 50 ml 0 ml Packed Cells 400 ml Blood Product IV Normal Saline Flush 50 ml Other 1000 ml Output Urine Total 300 ml 550 ml 1100 ml # Voids 0 # Bowel Movements 2 1 Result Diagram: 06/09/17 0725 06/08/17 0603 Imaging Last 72 hours Impressions Abdomen X-Ray 06/08/17 0600 Signed Impressions: Service Date/Time: , June 08, 2017 06:47 - CONCLUSION: Interval improvement of air-filled dilated loops of small bowel compared 06/06/17 with minimal residual air-filled dilatation of a single loop of small bowel within the central abdomen on today's examination. García Devine MD Objective Remarks AAOx3 PERRLA Clear lungs BL Abdomen soft, mildly tender to palpation of lower abdomen, with mild distention. No edema in lower extremities A/P Problem List: (1) Abdominal pain ICD Code: R10.9 - Unspecified abdominal pain Status: Acute Plan: CT abdomen and pelvis showed improvement in small bowel dilation is May 23. Moderate to severe ascites with liver cirrhosis. Splenomegaly. Nonobstructed right renal calculi. Fluid in right inguinal canal large right hydrocele. Small hiatal hernia. The patient was admitted to the medical floor. The patient is noncompliant with medication. Pain likely secondary to ascites and possibly secondary to Crohn's disease. Hemoccult was obtained in the ED and was positive. GI consulted, recommendations appreciated. Patient started on IV Solu-Medrol and Pentasa for treatment of suspected Crohn's exacerbation. Colorectal surgery surgery has also been consulted. Ascitic fluid no sent for analysis. Will start on IV Rocephin empirically to cover for SBP. 06/09 for colonoscopy today. Continue IV Solu-Medrol, Pentasa and IV Rocephin. (2) Ascites ICD Code: R18.8 - Other ascites Status: Acute Plan: Secondary to liver cirrhosis. The patient status post paracentesis with extraction of near 5 L of ascitic fluid. Furosemide and spironolactone was held due to hypotension and 500 ML's of IV normal saline bolus were ordered earlier today by me. BP improving. 06/09 continue to hold diuretics. Will give a repeat bolus of normal saline. Continue to monitor vital signs. (3) Leukocytosis ICD Code: D72.829 - Elevated white blood cell count, unspecified Status: Acute Plan: Leukocytosis likely secondary to stress and pain. WBC on admission 14.8 K, now trending down to 10.9. Patient is afebrile. 06/09 WBC increased to 15 K, the patient complaining of chills area and I will obtain blood cultures, continue IV Rocephin for empiric coverage of SBP. Continue to monitor CBC with differential. (4) Hypokalemia ICD Code: E87.6 - Hypokalemia Status: Resolved Plan: Mild hypokalemia with potassium 3.4 on admission. Now improved after repletion. Continue to monitor BMP and potassium levels. (5) Anemia ICD Code: D64.9 - Anemia, unspecified Plan: Hemoglobin trending down from 8.0 on admission to 7.5 on 06/08/17. Patient states he feels very tired. 06/09 status post transfusion of 1 unit of packed red blood cells with appropriate hemoglobin rise. (6) Tobacco abuse ICD Code: Z72.0 - Tobacco use Plan: Patient started on nicotine patch, continue. Advised smoking cessation. (7) Crohns disease ICD Code: K50.90 - Crohn's disease, unspecified, without complications Plan: No evidence of Crohn's exacerbation on CT of the abdomen. However the patient is being with IV Solu-Medrol and Pentasa as per GI recommendations. (8) UTI (urinary tract infection) ICD Code: N39.0 - Urinary tract infection, site not specified Plan: Urinalysis obtained on 05/29/17 was positive for a urinary tract infection. On IV Rocephin for . Urine culture concurrent with contamination Assessment and Plan GI prophylaxis: I will start on Protonix. DVT prophylaxis: SCDs, no chemoprophylaxis given anemia, stool guaiac positive stool obtained in the ED and downtrending hemoglobin. Discharge Planning Continue to monitor in the medical floor. Pending GI clearance, hemoglobin and clinical improvement. Problem Qualifiers (1) Ascites: Qualified Codes: K70.31 - Alcoholic cirrhosis of liver with ascites (2) Leukocytosis: Qualified Codes: D72.829 - Elevated white blood cell count, unspecified Billy Escalante MD Jun 09, 2017 18:34
[2017-06-09] MEDS ORDERED: SODIUM CHLOR 0.9% 1000 ML INJ 1,000 ML IV ONE (18:45)
[2017-06-09 20:00] VITALS: BP 115/61; PULSE 92; RESP 18; TEMP 97.6; O2SAT 98
[2017-06-10] VITALS (7 sets, daily range): BP systolic 95–119; BP diastolic 54–65; PULSE 86–97; RESP 17–18; TEMP 97.3–97.8; O2SAT 92–97
[2017-06-10] MEDS: MORPHINE SULFATE 2 MG/ML INJ IV PUSH PRN ×7 (00:09→22:19)
[2017-06-10] MEDS: ALPRAZolam 0.5 MG TAB PO PRN ×2 (05:21→14:12)
[2017-06-10] MEDS: NICOTINE 21 MG/24 HR PATCH T-DERMAL SCH (08:15)
[2017-06-10] MEDS: MESALAMINE 250 MG CAP PO SCH ×4 (08:16→22:18)
[2017-06-10] MEDS: SPIRONOLACTONE 25 MG TAB PO SCH (08:16)
[2017-06-10] MEDS: REMOVE OLD PATCH T-DERMAL SCH (08:16)
[2017-06-10] MEDS: methylPREDNISolone SOD SUCC 40 MG/1 ML VIAL IV PUSH SCH (08:17)
[2017-06-10] MEDS: SODIUM CHLORIDE 0.9% FLUSH 10 ML FLUSH IV FLUSH SCH ×2 (08:18→22:19)
--- NOTE | 2017-06-10 13:00 | HHI.GIFU ---
Subjective Remarks Sitting up in bed awake alert feeling much better Eating soft solid foods slowly, no nausea vomiting noted Abdomen taut semi-firm, active bowel sounds Afebrile (Ivelisse Puga) Objective Vitals I&O Vital Signs Date Time Temp Pulse Resp B/P (MAP) Pulse Ox O2 Delivery O2 Flow Rate FiO2 06/10/17 12:00 97.6 96 17 107/58 (74) 93 06/10/17 09:17 92 21 06/10/17 08:00 97.4 86 17 105/62 (76) 95 06/10/17 04:00 97.3 87 17 95/55 (68) 97 06/10/17 00:00 97.8 97 17 109/54 (72) 96 06/09/17 20:00 97.6 92 18 115/61 (79) 98 06/09/17 19:45 Room Air 06/09/17 17:30 97.5 79 13 96/53 (67) 98 Room Air 06/09/17 17:15 80 15 96/55 (69) 99 Room Air 06/09/17 17:08 97.5 82 15 91/54 (66) 98 Room Air 06/09/17 16:10 97.7 98 16 107/62 (77) 99 I/O 06/09/17 06/09/17 06/09/17 06/10/17 06/10/17 06/10/17 07:00 15:00 23:00 07:00 15:00 23:00 Intake Total 500 ml 2380 ml 2340 ml Balance 500 ml 2380 ml 2340 ml Intake Oral 380 ml 2340 ml IV Total 50 ml 1000 ml Packed Cells 400 ml Blood Product IV Normal Saline Flush 50 ml Other 1000 ml # Voids 5 2 # Bowel Movements 1 1 Laboratory Date/Time Source Procedure Growth Status 06/09/17 20:10 Blood Peripheral Aerobic Blood Culture - Preliminary NO GROWTH IN 1 DAY Resulted 06/09/17 20:10 Blood Peripheral Anaerobic Blood Culture - Preliminary NO GROWTH IN 1 DAY Resulted 06/06/17 22:15 Urine Clean Catch Urine Culture - Final <10,000 CFU/ML GRAM POSITIVE ARACELIS Complete Imaging Last Impressions Abdomen X-Ray 06/08/17 0600 Signed Impressions: Service Date/Time: May 06:47 - CONCLUSION: Interval improvement of air-filled dilated loops of small bowel compared 06/06/17 with minimal residual air-filled dilatation of a single loop of small bowel within the central abdomen on today's examination. García Devine MD Cyst Biopsy Asp-Paracentesis US 06/07/17 0000 Signed Impressions: Service Date/Time: Wednesday, June 07, 2017 10:40 - CONCLUSION: Uncomplicated ultrasound guided paracentesis. Lalo Zavala Jr., MD Chest X-Ray 06/07/17 0000 Signed Impressions: Service Date/Time: Wednesday, June 07, 2017 02:41 - CONCLUSION: No acute disease. Oc Foster MD Abdomen/Pelvis CT [id number]/06/[id number] Signed Impressions: Service Date/Time: Tuesday, June 06, 2017 21:32 - CONCLUSION: 1. Improvement in small bowel dilatation since May 23. 2. Moderate to severe ascites with liver cirrhosis. Splenomegaly. 3. Nonobstructing right renal calculi. 4. Fluid in right inguinal canal and large right hydrocele. 5. Small hiatal hernia. Dung Ellsworth MD Physical Exam HEENT: Pupils round and reactive to light; normocephalic thin face; atraumatic; no jaundice. Throat is clean NECK: Neck is supple, no JVD, no lymphadenopathy. CHEST: Chest is clear to auscultation and percussion. CARDIAC: Regular rate and rhythm ABDOMEN: Abdomen taut, bowel sounds active, no nausea vomiting , EXTREMITIES: No clubbing, cyanosis, or edema. SKIN: Normal; no rash; no jaundice. NETWORK ARCHITECT: No focal deficits; alert and oriented times three., Speech clear (Ivelisse Puga) Assessment and Plan Plan ASSESSMENT: - Abdominal pain distention, multifactorial r/t ascites and some degree of sbo. Recent history shows patient was hospitalized from 05/23 until 05/25 when he left AMA because he was not allowed to eat/inadequate pain meds. He was seen by Dr. Lane during that hospitalization and the plan was for possible exploratory laparoscopy with PEREZ if no improvement or persistent sbo. Pt left AMA and admits to overindulging for Thanksgiving. He has had worsening distention/abdominal pain. CT scan (06/06/17) revealed improvement and small bowel dilatation since May 23. Moderate to severe ascites with liver cirrhosis. Splenomegaly. Nonobstructing right renal calculi. Fluid in the right inguinal canal and large right hydrocele. Small hiatal hernia. Likely his pain is a combination from the ascites and some degree of psbo. Patient underwent paracentesis on 06-07-, tolerated procedure well and states he is less short of breath as well as improved abdominal pain. Patient's currently on full liquid diet and tolerating without nausea or vomiting, open to have his diet advanced today. States he is hungry Abdominal x-rays done on show-Interval improvement of air-filled dilated loops of small bowel compared 06/06/17 with minimal residual air-filled dilatation of a single loop of small bowel within the central abdomen on today' s examination Will keep patient on full liquids for now pending any further testing needed. Diet advance per Dr. Lane if okay. - Ascites. S/P US guided paracentesis with 4,900cc of fluid on 06/07/17 Add Lasix, Spironolactone. Feeling much better today with decreased abdominal pain - Crohn's Dz, noncompliant, not on any home meds. Dx at age 30. Add Pentasa, Solumedrol. - Anemia, normocytic. EGD (01/06/17)---> Gastritis antrum, retroflexion revealed hiatal hernia, normal duodenum, normal esophagus, tight cricopharyngeal muscle with extensive compression in the upper esophageal sphincter. Pathology with small intestinal mucosa without significant histopathologic abnormality. Stomach antrum with minimal chronic gastritis, negative for H. Pylori. Colonoscopy (02/22/16)---> Narrowing and the anastomosis consistent with active Crohn's disease, unable to pass the scope to the ileum. Mild to moderate colitis throughout the colon most likely Crohn's Colitis. Biopsies were done from the colonic site of the anastomosis, transverse colon, descending colon, and rectosigmoid area. Pathology from transverse colon with moderate active colitis with cryptitis and crypt abscesses, negative for dysplasia or malignancy; right colon focal acute nonspecific colitis, sigmoid colon with fragments of colonic mucosa with focal adenomatous change, negative for active colitis, dysplasia, or malignancy, rectum pathology colonic mucosa without significant histopathologic abnormality. Hemoglobin stable at 9.4 , no shortness of breath has improved since paracentesis, patient is ambulating in the room. - Liver cirrhosis. - Depression, Anxiety, Asthma, per attending. PLAN: - Soft regular food, monitor for any acute nausea or vomiting - Pentasa 1000mg po QID - Solumedrol 40mg IV daily - Lasix 40mg po daily - Spironolactone 50mg po daily - Monitor HH, as warranted - Transfuse as necessary - Monitor labs - Supportive care - FUrther recommendations to follow based on results of above - Pt seen and examined by Dr. Pino and myself and this note is written on her behalf (Ivelisse Puga) Ivelisse Puga Jun 10, 2017 13:00 Elizabeth Pino MD Jun 10, 2017 18:11
--- NOTE | 2017-06-10 15:02 | HHI.PR ---
Subjective Remarks Crohn's disease if ileocolic stenosis, liver failure comfortable, tolerating diet Objective Vital Signs Date Time Temp Pulse Resp B/P (MAP) Pulse Ox O2 Delivery O2 Flow Rate FiO2 06/10/17 12:00 97.6 96 17 107/58 (74) 93 06/10/17 09:17 92 21 06/10/17 08:00 97.4 86 17 105/62 (76) 95 06/10/17 04:00 97.3 87 17 95/55 (68) 97 06/10/17 00:00 97.8 97 17 109/54 (72) 96 06/09/17 20:00 97.6 92 18 115/61 (79) 98 06/09/17 19:45 Room Air 06/09/17 17:30 97.5 79 13 96/53 (67) 98 Room Air 06/09/17 17:15 80 15 96/55 (69) 99 Room Air 06/09/17 17:08 97.5 82 15 91/54 (66) 98 Room Air 06/09/17 16:10 97.7 98 16 107/62 (77) 99 I/O 06/09/17 06/09/17 06/09/17 06/10/17 06/10/17 06/10/17 07:00 15:00 23:00 07:00 15:00 23:00 Intake Total 500 ml 2380 ml 2340 ml Balance 500 ml 2380 ml 2340 ml Intake Oral 380 ml 2340 ml IV Total 50 ml 1000 ml Packed Cells 400 ml Blood Product IV Normal Saline Flush 50 ml Other 1000 ml # Voids 5 2 # Bowel Movements 1 1 Result Diagram: 06/09/17 0725 06/08/17 0603 Objective Remarks Abdomen soft, distended, firm Assessment and Plan Assessment and Plan tolerating diet Possible TIPS in near future Would avoid surgery if at all possible Holli Lenz MD Jun 10, 2017 15:02
--- NOTE | 2017-06-10 15:39 | HHI.PR ---
Subjective Remarks Abdomianl pain improving 6/10 in intensity. Denies fevers and chills Tolerating diet. Objective Vitals Vital Signs Date Time Temp Pulse Resp B/P (MAP) Pulse Ox O2 Delivery O2 Flow Rate FiO2 06/10/17 12:00 97.6 96 17 107/58 (74) 93 06/10/17 09:17 92 21 06/10/17 08:00 97.4 86 17 105/62 (76) 95 06/10/17 07:00 Room Air 06/10/17 04:00 97.3 87 17 95/55 (68) 97 06/10/17 00:00 97.8 97 17 109/54 (72) 96 06/09/17 20:00 97.6 92 18 115/61 (79) 98 06/09/17 19:45 Room Air 06/09/17 17:30 97.5 79 13 96/53 (67) 98 Room Air 06/09/17 17:15 80 15 96/55 (69) 99 Room Air 06/09/17 17:08 97.5 82 15 91/54 (66) 98 Room Air 06/09/17 16:10 97.7 98 16 107/62 (77) 99 I/O 06/09/17 06/09/17 06/09/17 06/10/17 06/10/17 06/10/17 07:00 15:00 23:00 07:00 15:00 23:00 Intake Total 500 ml 2380 ml 2340 ml Balance 500 ml 2380 ml 2340 ml Intake Oral 380 ml 2340 ml IV Total 50 ml 1000 ml Packed Cells 400 ml Blood Product IV Normal Saline Flush 50 ml Other 1000 ml # Voids 5 2 # Bowel Movements 1 1 Result Diagram: 06/09/17 0725 06/08/17 0603 Objective Remarks AAOx3 PERRLA Clear lungs BL Abdomen soft, mildly tender to palpation of lower abdomen, with mild distention. No edema in lower extremities A/P Problem List: (1) Abdominal pain ICD Code: R10.9 - Unspecified abdominal pain Status: Acute Plan: CT abdomen and pelvis showed improvement in small bowel dilation is May 23. Moderate to severe ascites with liver cirrhosis. Splenomegaly. Nonobstructed right renal calculi. Fluid in right inguinal canal large right hydrocele. Small hiatal hernia. The patient was admitted to the medical floor. The patient is noncompliant with medication. Pain likely secondary to ascites and possibly secondary to Crohn's disease. Hemoccult was obtained in the ED and was positive. GI consulted, recommendations appreciated. Patient started on IV Solu-Medrol and Pentasa for treatment of suspected Crohn's exacerbation. Colorectal surgery surgery has also been consulted. Ascitic fluid no sent for analysis. Will start on IV Rocephin empirically to cover for SBP. 06/09 for colonoscopy today. Continue IV Solu-Medrol, Pentasa and IV Rocephin. 12/2 abdominal pain improving. Continue same management. (2) Ascites ICD Code: R18.8 - Other ascites Status: Acute Plan: Secondary to liver cirrhosis. The patient status post paracentesis with extraction of near 5 L of ascitic fluid. Furosemide and spironolactone was held due to hypotension and 500 ML's of IV normal saline bolus were ordered earlier today by me. BP improving. 06/09 continue to hold diuretics. Will give a repeat bolus of normal saline. Continue to monitor vital signs. 06/10 resume lasix (3) Leukocytosis ICD Code: D72.829 - Elevated white blood cell count, unspecified Status: Acute Plan: Leukocytosis likely secondary to stress and pain. WBC on admission 14.8 K, now trending down to 10.9. Patient is afebrile. 06/09 WBC increased to 15 K, the patient complaining of chills area and I will obtain blood cultures, continue IV Rocephin for empiric coverage of SBP. Continue to monitor CBC with differential. 06/10 WBC trending down. Continue ot monitor cbc (4) Hypokalemia ICD Code: E87.6 - Hypokalemia Status: Resolved Plan: Mild hypokalemia with potassium 3.4 on admission. Now improved after repletion. Continue to monitor BMP and potassium levels. 06/10 labs pending. Replace if needed. (5) Anemia ICD Code: D64.9 - Anemia, unspecified Plan: Hemoglobin trending down from 8.0 on admission to 7.5 on 06/08/17. Patient states he feels very tired. 06/09 status post transfusion of 1 unit of packed red blood cells with appropriate hemoglobin rise. (6) Tobacco abuse ICD Code: Z72.0 - Tobacco use Plan: Patient started on nicotine patch, continue. Advised smoking cessation. (7) Crohns disease ICD Code: K50.90 - Crohn's disease, unspecified, without complications Plan: No evidence of Crohn's exacerbation on CT of the abdomen. However the patient is being with IV Solu-Medrol and Pentasa as per GI recommendations. (8) UTI (urinary tract infection) ICD Code: N39.0 - Urinary tract infection, site not specified Plan: Urinalysis obtained on 05/29/17 was positive for a urinary tract infection. On IV Rocephin for . Urine culture concurrent with contamination Assessment and Plan GI prophylaxis: I will start on Protonix. DVT prophylaxis: SCDs, no chemoprophylaxis given anemia, stool guaiac positive stool obtained in the ED and downtrending hemoglobin. Discharge Planning Continue to monitor in the medical floor. Pending GI clearance, hemoglobin and clinical improvement. Problem Qualifiers (1) Ascites: Qualified Codes: K70.31 - Alcoholic cirrhosis of liver with ascites (2) Leukocytosis: Qualified Codes: D72.829 - Elevated white blood cell count, unspecified Billy Escalante MD Jun 10, 2017 15:39
[2017-06-10 15:41] LABS: AUTOMATED NEUTROPHIL # 13.5 TH/MM3 (1.8-7.7); BASOPHIL % 0.1 % (0.0-2.0); EOSINOPHIL % 0.1 % (0.0-4.0); HEMATOCRIT 26.3 % (39.0-51.0); HEMO FLAGS DIFF FINAL; LYMPH % 3.9 % (9.0-44.0); LYMPHOCYTE # 0.6 TH/MM3 (1.0-4.8); MEAN CELL VOLUME 88.8 FL (80.0-100.0); MEAN CORPUSCULAR HEMOGLOBIN 29.3 PG (27.0-34.0); NEUT % 92.9 % (16.0-70.0); PLATELET COUNT 146 TH/MM3 (150-450); RED BLOOD COUNT 2.96 MIL/MM3 (4.50-5.90); RED CELL DISTRIBUTION WIDTH 16.1 % (11.6-17.2); WHITE BLOOD COUNT 14.5 TH/MM3 (4.0-11.0)
[2017-06-10 16:01] LABS: BICARBONATE 24.1 MEQ/L (21.0-32.0); CALCIUM-PROTEIN CORRECTED 8.6 MG/DL (8.5-10.1); POTASSIUM 3.2 MEQ/L (3.5-5.1); TOTAL BILIRUBIN ADULT 0.5 MG/DL (0.2-1.0)
[2017-06-10] MEDS: RESP: ALBUTEROL 2.5 MG/IPRATROPIUM 0.5 MG NEB (PRN) NEB (16:06)
[2017-06-11] VITALS (8 sets, daily range): BP systolic 105–118; BP diastolic 57–71; PULSE 80–105; RESP 18; TEMP 97.6–98.5; O2SAT 94–98
[2017-06-11] MEDS: MORPHINE SULFATE 2 MG/ML INJ IV PUSH PRN ×3 (01:57→15:23)
[2017-06-11] MEDS: ALPRAZolam 0.5 MG TAB PO PRN ×3 (03:40→18:32)
[2017-06-11] MEDS: SPIRONOLACTONE 25 MG TAB PO SCH (08:21)
[2017-06-11] MEDS: SODIUM CHLORIDE 0.9% FLUSH 10 ML FLUSH IV FLUSH SCH ×2 (08:21→20:31)
[2017-06-11] MEDS: methylPREDNISolone SOD SUCC 40 MG/1 ML VIAL IV PUSH SCH (08:22)
[2017-06-11] MEDS: REMOVE OLD PATCH T-DERMAL SCH (08:22)
[2017-06-11] MEDS: NICOTINE 21 MG/24 HR PATCH T-DERMAL SCH (08:22)
[2017-06-11] MEDS: MESALAMINE 250 MG CAP PO SCH ×4 (08:23→20:30)
[2017-06-11] MEDS: RESP: ALBUTEROL 2.5 MG/IPRATROPIUM 0.5 MG NEB (PRN) NEB (09:39)
[2017-06-11] MEDS ORDERED: POTASSIUM CHLORIDE 10 MEQ CONTROLLED RELEASE TAB PO ONE (09:45)
--- NOTE | 2017-06-11 11:55 | HHI.PR ---
Subjective Remarks Crohn's disease, ileocolic stenosis, liver failure comfortable, tolerating diet Objective Vital Signs Date Time Temp Pulse Resp B/P (MAP) Pulse Ox O2 Delivery O2 Flow Rate FiO2 06/11/17 09:40 95 06/11/17 07:00 98.1 80 18 110/67 (81) 94 06/11/17 04:00 97.6 82 18 116/60 (78) 96 06/11/17 04:00 Room Air 06/11/17 00:00 98.1 95 18 105/57 (73) 95 06/11/17 00:00 Room Air 06/10/17 20:00 Room Air 06/10/17 20:00 97.5 93 18 119/65 (83) 96 06/10/17 16:00 97.3 95 17 100/60 (73) 95 06/10/17 12:00 97.6 96 17 107/58 (74) 93 I/O 06/10/17 06/10/17 06/10/17 06/11/17 06/11/17 06/11/17 07:00 15:00 23:00 07:00 15:00 23:00 Intake Total 2340 ml 1200 ml 550 ml Balance 2340 ml 1200 ml 550 ml Intake Oral 2340 ml 1200 ml 550 ml # Voids 2 4 2 # Bowel Movements 1 2 2 Result Diagram: 06/10/17 1424 06/10/17 142 Objective Remarks Abdomen soft, distended, firm Assessment and Plan Assessment and Plan tolerating diet Possible TIPS in near future Would avoid surgery if at all possible Holli Lenz MD Jun 11, 2017 11:55
[2017-06-11 14:54] LABS: HEMATOCRIT 26.6 % (39.0-51.0); MEAN CORPUSCULAR HEMOGLOBIN 28.8 PG (27.0-34.0); MEAN CORPUSCULAR HGB CONC 32.4 % (32.0-36.0); PLATELET COUNT 183 TH/MM3 (150-450); RED BLOOD COUNT 2.98 MIL/MM3 (4.50-5.90); RED CELL DISTRIBUTION WIDTH 16.3 % (11.6-17.2); REVIEW FLAG FINAL; WHITE BLOOD COUNT 15.2 TH/MM3 (4.0-11.0)
[2017-06-11 15:07] LABS: BICARBONATE 23.7 MEQ/L (21.0-32.0); MAGNESIUM 1.4 MG/DL (1.5-2.5)
--- NOTE | 2017-06-11 16:07 | HHI.GIFU ---
Subjective Remarks Pt resting in bed comfortably. Reports good appetite. Denies N/V, abdominal pain. Continued diarrhea, approx four episodes a day, but reports has noticed some improvement in consistency. Denies blood in stool. (Dinorah Gillespie) Objective Vitals I&O Vital Signs Date Time Temp Pulse Resp B/P (MAP) Pulse Ox O2 Delivery O2 Flow Rate FiO2 06/11/17 12:00 98.5 105 18 117/69 (85) 96 06/11/17 09:40 95 06/11/17 07:00 98.1 80 18 110/67 (81) 94 06/11/17 04:00 97.6 82 18 116/60 (78) 96 06/11/17 04:00 Room Air 06/11/17 00:00 98.1 95 18 105/57 (73) 95 06/11/17 00:00 Room Air 06/10/17 20:00 Room Air 06/10/17 20:00 97.5 93 18 119/65 (83) 96 06/10/17 16:00 97.3 95 17 100/60 (73) 95 I/O 06/10/17 06/10/17 06/10/17 06/11/17 06/11/17 06/11/17 07:00 15:00 23:00 07:00 15:00 23:00 Intake Total 2340 ml 1200 ml 550 ml Balance 2340 ml 1200 ml 550 ml Intake Oral 2340 ml 1200 ml 550 ml # Voids 2 4 2 # Bowel Movements 1 2 2 Laboratory Laboratory Tests Test 06/11/17 14:17 White Blood Count 15.2 Red Blood Count 2.98 Hemoglobin 8.6 Hematocrit 26.6 Mean Corpuscular Volume 89.0 Mean Corpuscular Hemoglobin 28.8 Mean Corpuscular Hemoglobin Concent 32.4 Red Cell Distribution Width 16.3 Platelet Count 183 Mean Platelet Volume 8.4 Blood Urea Nitrogen 6 Creatinine 0.51 Random Glucose 219 Calcium Level 7.7 Phosphorus Level 2.5 Magnesium Level 1.4 Sodium Level 138 Potassium Level 4.0 Chloride Level 107 Carbon Dioxide Level 23.7 Anion Gap 7 Estimat Glomerular Filtration Rate 171 Date/Time Source Procedure Growth Status 06/09/17 20:10 Blood Peripheral Aerobic Blood Culture - Preliminary NO GROWTH IN 2 DAYS Resulted 06/09/17 20:10 Blood Peripheral Anaerobic Blood Culture - Preliminary NO GROWTH IN 2 DAYS Resulted 06/06/17 22:15 Urine Clean Catch Urine Culture - Final <10,000 CFU/ML GRAM POSITIVE ARACELIS Complete Imaging Last Impressions Abdomen X-Ray 06/08/17 0600 Signed Impressions: Service Date/Time: May 06:47 - CONCLUSION: Interval improvement of air-filled dilated loops of small bowel compared 06/06/17 with minimal residual air-filled dilatation of a single loop of small bowel within the central abdomen on today's examination. García Devine MD Cyst Biopsy Asp-Paracentesis US 06/07/17 0000 Signed Impressions: Service Date/Time: Wednesday, June 07, 2017 10:40 - CONCLUSION: Uncomplicated ultrasound guided paracentesis. Lalo Zavala Jr., MD Chest X-Ray 06/07/17 0000 Signed Impressions: Service Date/Time: Wednesday, June 07, 2017 02:41 - CONCLUSION: No acute disease. Oc Foster MD Abdomen/Pelvis CT 06/06/172034 Signed Impressions: Service Date/Time: Tuesday, June 06, 2017 21:32 - CONCLUSION: 1. Improvement in small bowel dilatation since May 23. 2. Moderate to severe ascites with liver cirrhosis. Splenomegaly. 3. Nonobstructing right renal calculi. 4. Fluid in right inguinal canal and large right hydrocele. 5. Small hiatal hernia. Dung Ellsworth MD Physical Exam HEENT: Normocephalic thin face; atraumatic; no jaundice. CHEST: CTA CARDIAC: RRR ABDOMEN: Mildly distended, abdomen soft, bowel sounds active x 4 EXTREMITIES: No clubbing, cyanosis, or edema. SKIN: Normal; no rash; no jaundice. DESIGNER ARCHITECT: No focal deficits; alert and oriented times three. (Dinorah Gillespie) Assessment and Plan Plan ASSESSMENT: - Abdominal pain- Improving. Tolerating regular diet today. KUB (06/08) --> Interval improvement of air-filled dilated loops of small bowel compared to 06/06/17 with minimal residual air-filled dilation of a single loop of small bowel within the central abdomen on today's examination. - Liver cirrhosis- AST-29 ALT-19 Alk phos-183 T bili- 0.5 - Ascites. S/P US guided paracentesis with 4,900cc of fluid on 06/07/17 Spironolactone. Lasix discontinued- low potassium yesterday. TIPS scheduled for tomorrow by IR. - Crohns Disease- Reports improving consistency in stool- approx 4 BMs a day- denies blood in stool. Pentasa. Solumedrol. CR following. - Anemia, normocytic. H/H stable 8.6/26.6. S/P 1 U PRBC - Depression, Anxiety, Asthma, per attending. PLAN: - TIPS scheduled for tomorrow - WENCESLAO - Cont Pentasa - Cont Solumedrol - Cont Spironolactone - Monitor HH - Transfuse as necessary - Supportive care - Pt seen and examined by Dr. Pino and myself and this note is written on her behalf (Dinorah Gillespie) Physician Comments seen, examined agree with above able to tolerate diet discussed with , may benefit from TIPS due to recurrent ascites in view of possible surgery also discussed with IR may benefit from referral to medical marijuana clinic on op basis-advised to contact his pcp we will retest for hepatitis , alp isoenzymes, celiac panel, ferritin, ggtp advised to stop drinking and be complaint with medical treatment to prevent worsening clinical status AFP low salt diet we will need to start nonselective betablockers upon dc, but he will need to be complaint with the regimen (Elizabeth Pino MD) Dinorah Gillespie Jun 11, 2017 16:07 Elizabeth Pino MD Jun 11, 2017 17:30
--- NOTE | 2017-06-11 16:35 | HHI.PR ---
Subjective Remarks Abdominal pain improving. States the pain is 6/10 intensity. Nurse states the patient is requesting IV morphine every 3 hours. Denies fevers or chills. Denies nausea vomiting. Stable vital signs Objective Vitals Vital Signs Date Time Temp Pulse Resp B/P (MAP) Pulse Ox O2 Delivery O2 Flow Rate FiO2 06/11/17 16:00 98.4 94 18 118/68 (85) 97 06/11/17 12:00 98.5 105 18 117/69 (85) 96 06/11/17 09:40 95 06/11/17 07:00 98.1 80 18 110/67 (81) 94 06/11/17 04:00 97.6 82 18 116/60 (78) 96 06/11/17 04:00 Room Air 06/11/17 00:00 98.1 95 18 105/57 (73) 95 06/11/17 00:00 Room Air 06/10/17 20:00 Room Air 06/10/17 20:00 97.5 93 18 119/65 (83) 96 I/O 06/10/17 06/10/17 06/10/17 06/11/17 06/11/17 06/11/17 06:59 14:59 22:59 06:59 14:59 22:59 Intake Total 2340 ml 1200 ml 550 ml Balance 2340 ml 1200 ml 550 ml Intake Oral 2340 ml 1200 ml 550 ml # Voids 2 4 2 # Bowel Movements 1 2 2 Result Diagram: 06/11/17 1417 06/11/17 1417 Imaging Last Impressions Abdomen X-Ray 06/08/17 0600 Signed Impressions: Service Date/Time: May 06:47 - CONCLUSION: Interval improvement of air-filled dilated loops of small bowel compared 06/06/17 with minimal residual air-filled dilatation of a single loop of small bowel within the central abdomen on today's examination. García Devine MD Cyst Biopsy Asp-Paracentesis US 06/07/17 0000 Signed Impressions: Service Date/Time: Wednesday, June 07, 2017 10:40 - CONCLUSION: Uncomplicated ultrasound guided paracentesis. Lalo Zavala Jr., MD Chest X-Ray 06/07/17 0000 Signed Impressions: Service Date/Time: Wednesday, June 07, 2017 02:41 - CONCLUSION: No acute disease. Oc Foster MD Abdomen/Pelvis CT [id number]/06/[id number] Signed Impressions: Service Date/Time: Tuesday, June 06, 2017 21:32 - CONCLUSION: 1. Improvement in small bowel dilatation since May 23. 2. Moderate to severe ascites with liver cirrhosis. Splenomegaly. 3. Nonobstructing right renal calculi. 4. Fluid in right inguinal canal and large right hydrocele. 5. Small hiatal hernia. Dung Ellsworth MD Objective Remarks AAOx3 PERRLA Clear lungs BL Abdomen soft, mildly tender to palpation of lower abdomen, with mild distention. No edema in lower extremities Medications and IVs Current Medications Medications (Trade) Dose Ordered Sig/Vikki Route Start Time Stop Time Status Last Admin (NS Flush) 2 ml UNSCH PRN IV FLUSH 06/06/17 23:30 06/11/17 01:58 (NS Flush) 2 ml BID IV FLUSH 06/07/17 09:00 06/11/17 08:21 (Zofran Inj) 4 mg Q6H PRN IVP 06/06/17 23:30 (Narcan Inj) 0.4 mg UNSCH PRN IV PUSH 06/06/17 23:30 (Duoneb Neb) 1 ampule Q4HR NEB PRN NEB 06/06/17 23:30 06/11/17 09:39 (Morphine Inj) 2 mg Q3H PRN IV PUSH 06/07/17 02:30 06/11/17 15:23 (Pentasa Sr) 1,000 mg QID PO 06/07/17 18:00 06/11/17 13:34 (SoluMEDROL INJ) 40 mg DAILY IV PUSH 06/08/17 09:00 06/11/17 08:22 (Lasix) 40 mg DAILY PO 06/08/17 09:00 Future Hold 06/08/17 08:24 (Xanax) 0.5 mg Q8H PRN PO 06/07/17 18:00 06/11/17 10:21 (Habitrol 21 Mg Patch.24 Hr) 1 patch DAILY T-DERMAL 06/07/17 18:00 06/11/17 08:22 Miscellaneous Information 1 DAILY T-DERMAL 06/07/17 18:00 06/11/17 08:22 (Tylenol) 650 mg Q4H PRN PO 06/08/17 17:30 (Benadryl) 25 mg Q4H PRN PO 06/08/17 17:30 06/08/17 20:13 (Aldactone) 75 mg DAILY PO 06/10/17 09:00 06/11/17 08:21 A/P Problem List: (1) Abdominal pain ICD Code: R10.9 - Unspecified abdominal pain Status: Acute Plan: CT abdomen and pelvis showed improvement in small bowel dilation is May 23. Moderate to severe ascites with liver cirrhosis. Splenomegaly. Nonobstructed right renal calculi. Fluid in right inguinal canal large right hydrocele. Small hiatal hernia. The patient was admitted to the medical floor. The patient is noncompliant with medication. Pain likely secondary to ascites and possibly secondary to Crohn's disease. Hemoccult was obtained in the ED and was positive. GI consulted, recommendations appreciated. Patient started on IV Solu-Medrol and Pentasa for treatment of suspected Crohn's exacerbation. Colorectal surgery surgery has also been consulted. Ascitic fluid no sent for analysis. Will start on IV Rocephin empirically to cover for SBP. 06/09 for colonoscopy today. Continue IV Solu-Medrol, Pentasa and IV Rocephin. 06/10 abdominal pain improving. Continue same management. 06/11 Discussed cse with GI JAMES Barrios, possible TIPS in am. Continue IV Solu- Medrol, Pentasa, IV Rocephin. (2) Ascites ICD Code: R18.8 - Other ascites Status: Acute Plan: Secondary to liver cirrhosis. The patient status post paracentesis with extraction of near 5 L of ascitic fluid. Furosemide and spironolactone was held due to hypotension and 500 ML's of IV normal saline bolus were ordered earlier today by me. BP improving. 06/09 continue to hold diuretics. Will give a repeat bolus of normal saline. Continue to monitor vital signs. 06/11 resume lasix (3) Leukocytosis ICD Code: D72.829 - Elevated white blood cell count, unspecified Status: Acute Plan: Leukocytosis likely secondary to stress and pain. WBC on admission 14.8 K, now trending down to 10.9. Patient is afebrile. 06/09 WBC increased to 15 K, the patient complaining of chills area and I will obtain blood cultures, continue IV Rocephin for empiric coverage of SBP. Continue to monitor CBC with differential. 12/2 WBC trending down. Continue ot monitor cbc 12/3 WBC stable at 15 K. However patient on IV steroids. Patient is afebrile and clinically improving. Continue to monitor CBC with differential. So far blood cultures negative 2. (4) Hypokalemia ICD Code: E87.6 - Hypokalemia Status: Resolved Plan: Mild hypokalemia with potassium 3.4 on admission. Now improved after repletion. Continue to monitor BMP and potassium levels. 12/2 labs pending. Replace if needed. 12/3 potassium was 3.2 yesterday, replaced orally and now normal at 4.0. Continue to monitor BMP. (5) Anemia ICD Code: D64.9 - Anemia, unspecified Plan: Hemoglobin trending down from 8.0 on admission to 7.5 on 06/08/17. Patient states he feels very tired. 06/09 status post transfusion of 1 unit of packed red blood cells with appropriate hemoglobin rise. / hemoglobin slowly trending down from 9.14 8.7-8.6. Continue to monitor CBC. (6) Tobacco abuse ICD Code: Z72.0 - Tobacco use Plan: Patient started on nicotine patch, continue. Advised smoking cessation. (7) Crohns disease ICD Code: K50.90 - Crohn's disease, unspecified, without complications Plan: No evidence of Crohn's exacerbation on CT of the abdomen. However the patient is being with IV Solu-Medrol and Pentasa as per GI recommendations. (8) UTI (urinary tract infection) ICD Code: N39.0 - Urinary tract infection, site not specified Plan: Urinalysis obtained on 05/29/17 was positive for a urinary tract infection. On IV Rocephin for . Urine culture concurrent with contamination Assessment and Plan GI prophylaxis: Continue PPI. DVT prophylaxis: SCDs, no chemoprophylaxis given anemia, stool guaiac positive stool obtained in the ED and downtrending hemoglobin. Discharge Planning Continue to monitor in the medical floor. Pending GI clearance, hemoglobin and clinical improvement. Problem Qualifiers (1) Ascites: Qualified Codes: K70.31 - Alcoholic cirrhosis of liver with ascites (2) Leukocytosis: Qualified Codes: D72.829 - Elevated white blood cell count, unspecified Billy Escalante MD Jun 11, 2017 16:35
[2017-06-11] MEDS ORDERED: MORPHINE SULFATE 4 MG/ML INJ IV PUSH PRN (17:00)
[2017-06-11] MEDS: MAGNESIUM SULFATE 1 GM PREMIX 100 ML IV SCH ×2 (17:31→18:33)
[2017-06-11] MEDS: oxyCODONE/ACETAMINOPHEN 5 MG/325 MG TAB PO PRN (20:30)
[2017-06-12] VITALS (7 sets, daily range): BP systolic 100–115; BP diastolic 61–71; PULSE 86–99; RESP 16–20; TEMP 97.3–98; O2SAT 96–99
[2017-06-12] MEDS: oxyCODONE/ACETAMINOPHEN 5 MG/325 MG TAB PO PRN ×6 (00:31→23:33)
[2017-06-12] MEDS: ALPRAZolam 0.5 MG TAB PO PRN ×3 (04:42→21:43)
--- NOTE | 2017-06-12 08:33 | MR ---
cc: ABDULKADIR PRUETT M.D. DATE: 06/09/2017 PREOPERATIVE DIAGNOSIS: History of Crohn's disease. PROCEDURE: 1. Colonoscopy. 2. Ileocolostomy. POSTOPERATIVE DIAGNOSIS: Recurrent Crohn's disease. SURGEON: Dr. Pruett. DESCRIPTION OF THE PROCEDURE IN DETAIL: The patient was placed in the left lateral decubitus position. After adequate anesthesia and sedation, a rectal exam confirmed the emptiness the rectal vault. The Olympus colonoscope was introduced into the rectum and advanced easily under direct vision through the proximal colon until the area of the ileocolostomy. The mucosa was covered with stool and this was irrigated copiously and tediously removed. There appeared to be narrowing and constriction with recurrent Crohn's disease at the anastomosis and proximal advancement through the anastomosis was not possible. The colonoscope was gradually withdrawn noting normal mucosa throughout the distal colon. No evidence of any inflammatory process was seen. The prep was only fair due to some solid and liquid stool but the majority of the mucosa did appear to be normal. Rectosigmoid and rectum appeared unremarkable. The patient tolerated the procedure quite well and was brought to the recovery room in stable condition. MD RADHA Flowers/NOE /11:25 AM /8:27 AM
[2017-06-12] MEDS: REMOVE OLD PATCH T-DERMAL SCH (09:00)
[2017-06-12] MEDS: SPIRONOLACTONE 25 MG TAB PO SCH (09:58)
[2017-06-12] MEDS: SODIUM CHLORIDE 0.9% FLUSH 10 ML FLUSH IV FLUSH SCH ×2 (09:58→21:43)
[2017-06-12] MEDS: methylPREDNISolone SOD SUCC 40 MG/1 ML VIAL IV PUSH SCH (09:58)
[2017-06-12] MEDS: NICOTINE 21 MG/24 HR PATCH T-DERMAL SCH (09:59)
[2017-06-12] MEDS: MESALAMINE 250 MG CAP PO SCH ×4 (09:59→21:43)
[2017-06-12] MEDS: FUROSEMIDE 40 MG TAB PO SCH (09:59)
[2017-06-12] MEDS: RESP: ALBUTEROL 2.5 MG/IPRATROPIUM 0.5 MG NEB (PRN) NEB (10:30)
--- NOTE | 2017-06-12 10:57 | HHI.GIFU ---
Subjective Remarks Pt resting in bed, eating eggs and turkish toast. "I feel a little better every day." Pain improving. abd distention improving. Objective Vitals I&O Vital Signs Date Time Temp Pulse Resp B/P (MAP) Pulse Ox O2 Delivery O2 Flow Rate FiO2 06/12/17 10:40 98 06/12/17 08:01 97.8 86 20 103/68 (80) 98 06/12/17 04:00 Room Air 06/12/17 04:00 97.8 87 18 110/69 (83) 96 06/12/17 00:00 Room Air 06/12/17 00:00 Room Air 06/12/17 00:00 97.5 90 16 112/67 (82) 96 06/11/17 20:03 98 06/11/17 20:00 Room Air 06/11/17 20:00 97.9 92 18 114/71 (85) 97 06/11/17 16:00 98.4 94 18 118/68 (85) 97 06/11/17 12:00 98.5 105 18 117/69 (85) 96 I/O 06/11/17 06/11/17 06/11/17 06/12/17 06/12/17 06/12/17 07:00 15:00 23:00 07:00 15:00 23:00 Intake Total 550 ml 1150 ml 480 ml 240 ml Balance 550 ml 1150 ml 480 ml 240 ml Intake Oral 550 ml 1050 ml 480 ml 240 ml IV Total 100 ml # Voids 2 6 5 1 # Bowel Movements 2 4 1 1 Laboratory Laboratory Tests Test 06/11/17 14:17 06/12/17 08:02 White Blood Count 15.2 Red Blood Count 2.98 Hemoglobin 8.6 Hematocrit 26.6 Mean Corpuscular Volume 89.0 Mean Corpuscular Hemoglobin 28.8 Mean Corpuscular Hemoglobin Concent 32.4 Red Cell Distribution Width 16.3 Platelet Count 183 Mean Platelet Volume 8.4 Blood Urea Nitrogen 6 Creatinine 0.51 Random Glucose 219 Calcium Level 7.7 Phosphorus Level 2.5 Magnesium Level 1.4 Sodium Level 138 Potassium Level 4.0 Chloride Level 107 Carbon Dioxide Level 23.7 Anion Gap 7 Estimat Glomerular Filtration Rate 171 Gamma Glutamyl Transpeptidase 520 Tumor Marker Alpha Fetoprotein 12.0 Date/Time Source Procedure Growth Status 06/09/17 20:10 Blood Peripheral Aerobic Blood Culture - Preliminary NO GROWTH IN 2 DAYS Resulted 06/09/17 20:10 Blood Peripheral Anaerobic Blood Culture - Preliminary NO GROWTH IN 2 DAYS Resulted 06/06/17 22:15 Urine Clean Catch Urine Culture - Final <10,000 CFU/ML GRAM POSITIVE ARACELIS Complete Imaging Last Impressions Abdomen X-Ray 06/08/17 0600 Signed Impressions: Service Date/Time: May 06:47 - CONCLUSION: Interval improvement of air-filled dilated loops of small bowel compared 06/06/17 with minimal residual air-filled dilatation of a single loop of small bowel within the central abdomen on today's examination. García Devine MD Cyst Biopsy Asp-Paracentesis US 06/07/17 0000 Signed Impressions: Service Date/Time: Wednesday, June 07, 2017 10:40 - CONCLUSION: Uncomplicated ultrasound guided paracentesis. Lalo Zavala Jr., MD Chest X-Ray 06/07/17 0000 Signed Impressions: Service Date/Time: Wednesday, June 07, 2017 02:41 - CONCLUSION: No acute disease. Oc Foster MD Abdomen/Pelvis CT [id number]/06/[id number] Signed Impressions: Service Date/Time: Tuesday, June 06, 2017 21:32 - CONCLUSION: 1. Improvement in small bowel dilatation since May 23. 2. Moderate to severe ascites with liver cirrhosis. Splenomegaly. 3. Nonobstructing right renal calculi. 4. Fluid in right inguinal canal and large right hydrocele. 5. Small hiatal hernia. Dung Ellsworth MD Physical Exam HEENT: Normocephalic thin face; atraumatic; no jaundice. CHEST: CTA CARDIAC: RRR ABDOMEN: Mildly distended, abdomen soft, bowel sounds active x 4 EXTREMITIES: No clubbing, cyanosis, mild BLE edema SKIN: Normal; no rash; no jaundice. ADVERTISING MANAGER: No focal deficits; alert and oriented times three. Assessment and Plan Plan ASSESSMENT: - Abdominal pain- pain improving, tolerating regular diet. hx Crohn's. KUB ( 06/08) --> Interval improvement of air-filled dilated loops of small bowel compared to 06/06/17 with minimal residual air-filled dilation of a single loop of small bowel within the central abdomen on today's examination. c/p colonoscopy by [facility] with finding recurrent Crohn's. celiac panel pending. - Liver cirrhosis- elevated AFP 12.0. GGT elevated 520. hep panel, alk phos iso enzymes, ferritin pending. - Ascites. S/P US guided paracentesis with 4,900cc of fluid on 06/07/17 spironolactone, lasix. IR consulted for TIPS abd distention improving - Crohns Disease- Reports improving consistency in stool- approx 4 BMs a day- denies blood in stool. Pentasa. Solumedrol. CR following. - Anemia, normocytic. H/H stable - Depression, Anxiety, Asthma, per attending. PLAN: - await IR consult for TIPS - WENCESLAO - Cont Pentasa - Cont Solumedrol - Cont Spironolactone - Monitor HH - Transfuse as necessary - Supportive care - Pt seen and examined by and myself and this note is written on his behalf Destinee Morgan SEAWEED HARVESTER Jun 12, 2017 10:57
[2017-06-12] MEDS ORDERED: DIATRIZOATE MEGLUM/DIATRIZOATE SOD 9 ML CUP PO ONE (13:30)
--- NOTE | 2017-06-12 14:43 | HHI.PR ---
Subjective Remarks The patient states that abdominal pain is improving, rates it as 5/over 10 intensity. Denies fevers or chills. Tolerating diet. Objective Vitals Vital Signs Date Time Temp Pulse Resp B/P (MAP) Pulse Ox O2 Delivery O2 Flow Rate FiO2 06/12/17 12:02 97.6 95 20 107/62 (77) 99 06/12/17 10:40 98 06/12/17 08:01 97.8 86 20 103/68 (80) 98 06/12/17 04:00 Room Air 06/12/17 04:00 97.8 87 18 110/69 (83) 96 06/12/17 00:00 Room Air 06/12/17 00:00 Room Air 06/12/17 00:00 97.5 90 16 112/67 (82) 96 06/11/17 20:03 98 06/11/17 20:00 Room Air 06/11/17 20:00 97.9 92 18 114/71 (85) 97 06/11/17 16:00 98.4 94 18 118/68 (85) 97 I/O 06/11/17 06/11/17 06/11/17 06/12/17 06/12/17 06/12/17 06:59 14:59 22:59 06:59 14:59 22:59 Intake Total 550 ml 1150 ml 480 ml 240 ml Balance 550 ml 1150 ml 480 ml 240 ml Intake Oral 550 ml 1050 ml 480 ml 240 ml IV Total 100 ml # Voids 2 6 5 1 # Bowel Movements 2 4 1 1 Result Diagram: 06/11/17 1417 06/11/17 1417 Imaging Last Impressions Abdomen X-Ray 06/08/17 0600 Signed Impressions: Service Date/Time: May 06:47 - CONCLUSION: Interval improvement of air-filled dilated loops of small bowel compared 06/06/17 with minimal residual air-filled dilatation of a single loop of small bowel within the central abdomen on today's examination. García Devine MD Cyst Biopsy Asp-Paracentesis US 06/07/17 0000 Signed Impressions: Service Date/Time: Wednesday, June 07, 2017 10:40 - CONCLUSION: Uncomplicated ultrasound guided paracentesis. Lalo Zavala Jr., MD Chest X-Ray 06/07/17 0000 Signed Impressions: Service Date/Time: Wednesday, June 07, 2017 02:41 - CONCLUSION: No acute disease. Oc Foster MD Abdomen/Pelvis CT 06/06/172034 Signed Impressions: Service Date/Time: Tuesday, June 06, 2017 21:32 - CONCLUSION: 1. Improvement in small bowel dilatation since May 23. 2. Moderate to severe ascites with liver cirrhosis. Splenomegaly. 3. Nonobstructing right renal calculi. 4. Fluid in right inguinal canal and large right hydrocele. 5. Small hiatal hernia. Dung Ellsworth MD Objective Remarks AAOx3 PERRLA Clear lungs BL Abdomen soft, mildly tender to palpation of lower abdomen, with mild distention. No edema in lower extremities Medications and IVs Current Medications Medications (Trade) Dose Ordered Sig/Vikki Route Start Time Stop Time Status Last Admin (NS Flush) 2 ml UNSCH PRN IV FLUSH 06/06/17 23:30 06/11/17 01:58 (NS Flush) 2 ml BID IV FLUSH 06/07/17 09:00 06/12/17 09:58 (Zofran Inj) 4 mg Q6H PRN IVP 06/06/17 23:30 (Narcan Inj) 0.4 mg UNSCH PRN IV PUSH 06/06/17 23:30 (Duoneb Neb) 1 ampule Q4HR NEB PRN NEB 06/06/17 23:30 06/12/17 10:30 (Pentasa Sr) 1,000 mg QID PO 06/07/17 18:00 06/12/17 12:55 (SoluMEDROL INJ) 40 mg DAILY IV PUSH 06/08/17 09:00 06/12/17 09:58 (Lasix) 40 mg DAILY PO 06/08/17 09:00 Future hold 06/12/17 09:59 (Xanax) 0.5 mg Q8H PRN PO 06/07/17 18:00 06/12/17 12:55 (Habitrol 21 Mg Patch.24 Hr) 1 patch DAILY T-DERMAL 06/07/17 18:00 06/12/17 09:59 Miscellaneous Information 1 DAILY T-DERMAL 06/07/17 18:00 06/12/17 09:00 (Tylenol) 650 mg Q4H PRN PO 06/08/17 17:30 (Benadryl) 25 mg Q4H PRN PO 06/08/17 17:30 06/08/17 20:13 (Aldactone) 75 mg DAILY PO 06/10/17 09:00 06/12/17 09:58 (Percocet 5-325 Mg) 1 tab Q4H PRN PO 06/11/17 17:00 (Percocet 5-325 Mg) 2 tab Q4H PRN PO 06/11/17 17:00 06/12/17 13:59 (Morphine Inj) 4 mg Q6H PRN IV PUSH 06/11/17 17:00 A/P Problem List: (1) Abdominal pain ICD Code: R10.9 - Unspecified abdominal pain Status: Acute (2) Ascites ICD Code: R18.8 - Other ascites Status: Acute (3) Leukocytosis ICD Code: D72.829 - Elevated white blood cell count, unspecified Status: Acute (4) Hypokalemia ICD Code: E87.6 - Hypokalemia Status: Resolved (5) Anemia ICD Code: D64.9 - Anemia, unspecified (6) Tobacco abuse ICD Code: Z72.0 - Tobacco use (7) Crohns disease ICD Code: K50.90 - Crohn's disease, unspecified, without complications (8) UTI (urinary tract infection) ICD Code: N39.0 - Urinary tract infection, site not specified Assessment and Plan (1) Abdominal pain Plan: CT abdomen and pelvis showed improvement in small bowel dilation is May 23. Moderate to severe ascites with liver cirrhosis. Splenomegaly. Nonobstructed right renal calculi. Fluid in right inguinal canal large right hydrocele. Small hiatal hernia. The patient was admitted to the medical floor. The patient is noncompliant with medication. Pain likely secondary to ascites and possibly secondary to Crohn's disease. Hemoccult was obtained in the ED and was positive. GI consulted, recommendations appreciated. Patient started on IV Solu-Medrol and Pentasa for treatment of suspected Crohn's exacerbation. Colorectal surgery surgery has also been consulted and following the patient. Patients are on IV Rocephin to cover empirically for SBP since abdominal ascitic fluid was not sent for analysis. The patient underwent colonoscopy with findings of recurrent Crohn's disease. 06/12 IR consult for TIPS. Continue diet as tolerated, continue IV steroids. Continue pain control with oral Percocet and IV morphine sulfate for breakthrough pain. As per patient pain has been very well controlled on oral medications. (2) Ascites Plan: Secondary to liver cirrhosis. The patient status post paracentesis with extraction of near 5 L of ascitic fluid. Furosemide and spironolactone was held due to hypotension which was treated with IV normal saline bolus. The blood pressure eventually improved and Lasix was resumed on 06/11. 06/12 continue Lasix and spironolactone, sodium restricted diet. (3) Leukocytosis Plan: Leukocytosis likely elevated secondary to steroid use. Continue to monitor CBC with differential. WBC elevated at 15.2. (4) Hypokalemia Plan: Mild hypokalemia with potassium 3.4 on admission. Now improved after repletion. Continue to monitor BMP and potassium levels. 06/10 labs pending. Replace if needed. 06/11 potassium was 3.2 yesterday, replaced orally and now normal at 4.0. Continue to monitor BMP. (5) Anemia Plan: Hemoglobin trending down from 8.0 on admission to 7.5 on 06/08/17. Patient states he feels very tired. 06/09 status post transfusion of 1 unit of packed red blood cells with appropriate hemoglobin rise. 06/11 hemoglobin slowly trending down from 9.14 8.7-8.6. Continue to monitor CBC. (6) Tobacco abuse Plan: Patient started on nicotine patch, continue. Advised smoking cessation. (7) Crohns disease Plan: No evidence of Crohn's exacerbation on CT of the abdomen. However the patient is being with IV Solu-Medrol and Pentasa as per GI recommendations. (8) UTI (urinary tract infection) ICD Code: N39.0 - Urinary tract infection, site not specified Plan: Urinalysis obtained on 05/29/17 was positive for a urinary tract infection. On IV Rocephin for . Urine culture concurrent with contamination Assessment and Plan GI prophylaxis: Continue PPI. DVT prophylaxis: SCDs, no chemoprophylaxis given anemia, stool guaiac positive stool obtained in the ED and downtrending hemoglobin. GI prophylaxis: Continue PPI. DVT prophylaxis: SCDs, no chemoprophylaxis given anemia, stool guaiac positive stool obtained in the ED and downtrending hemoglobin. Discharge Planning Continue to monitor in the medical floor. Pending GI clearance, TIPS, colorectal surgery clearance. Problem Qualifiers (1) Ascites: Qualified Codes: K70.31 - Alcoholic cirrhosis of liver with ascites (2) Leukocytosis: Qualified Codes: D72.829 - Elevated white blood cell count, unspecified Billy Escalante MD Jun 12, 2017 14:43
--- NOTE | 2017-06-12 15:47 | HHI.PR ---
Subjective Remarks CR Surg afebrile, VSS debi PO but abd distention Objective - Vital Signs Date Time Temp Pulse Resp B/P (MAP) Pulse Ox O2 Delivery O2 Flow Rate FiO2 06/12/17 12:02 97.6 95 20 107/62 (77) 99 06/12/17 04:00 Room Air 06/10/17 09:17 21 06/09/17 00:00 2.00 Result Diagram: 06/11/17 1417 06/11/17 1417 Objective Remarks PE Abd - lg, tight, +tympany non-tender A/P Assessment and Plan Imp: stable, CT to check TI obstruction if ascites, then may try tips Ashwin Lane MD Jun 12, 2017 15:47
--- NOTE | 2017-06-12 19:47 | RADRPT ---
EXAM DATE/TIME: 06/12/2017 19:04 [facility] COMPARISON: CT ABDOMEN & PELVIS W CONTRAST, June 06, 2017, 21:32. INDICATIONS : Abdomen pain. ORAL CONTRAST: Partial prescribed oral contrast ingested. RADIATION DOSE: 11.97 CTDIvol (mGy) MEDICAL HISTORY : Pancreatitis. Crohn's disease. Chronic obstructive pulmonary disease.Hernia. SURGICAL HISTORY : None. ENCOUNTER: Initial ACUITY: 1 day PAIN SCALE: 5/10 LOCATION: Bilateral abdomen TECHNIQUE: Volumetric scanning of the abdomen and pelvis was performed. Using automated exposure control and ad justment of the mA and/or kV according to patient size, radiation dose was kept as low as reasonably achievable to obtain optimal diagnostic quality images. DICOM format image data is available electro nically for review and comparison. FINDINGS: There are several areas of wall thickening involving the distal ileum with skip areas between the aff ected areas consistent with probable Crohn's disease. No definite small bowel obstruction is noted. T he colon is nondilated. Moderate ascites is noted throughout the abdomen and pelvis. A right inguinal hernia containing ascites fluid is noted. The liver and spleen are enlarged. The liver is nodular in contour suggesting cirrhosis. Multiple calcified nonobstructing bilateral renal calculi are noted wi th the largest measuring 7 mm in the right lower pole. Tiny bilateral pleural effusions are noted. CONCLUSION: 1. Several areas of wall thickening involving the distal ileum with skip areas consistent with probab le Crohn's disease. 2. Moderate amount of ascites throughout the abdomen and pelvis. 3. Right inguinal hernia containing ascites fluid. 4. Hepatosplenomegaly. 5. Nodular liver suggesting cirrhosis. 6. Multiple calcified nonobstructing bilateral renal calculi. 7. Tiny bilateral pleural effusions. García Devine MD on June 12, 2017 at 19:36 Board Certified Radiologist. This report was verified electronically.
[2017-06-13] VITALS (8 sets, daily range): BP systolic 102–119; BP diastolic 61–70; PULSE 84–105; RESP 18–20; TEMP 97.8–98.6; O2SAT 95–100
[2017-06-13] MEDS: oxyCODONE/ACETAMINOPHEN 5 MG/325 MG TAB PO PRN ×4 (03:49→20:26)
[2017-06-13] MEDS: ALPRAZolam 0.5 MG TAB PO PRN ×2 (05:47→16:14)
[2017-06-13] MEDS: SODIUM CHLORIDE 0.9% FLUSH 10 ML FLUSH IV FLUSH SCH ×2 (07:51→20:27)
[2017-06-13] MEDS: SPIRONOLACTONE 25 MG TAB PO SCH (08:47)
[2017-06-13] MEDS: methylPREDNISolone SOD SUCC 40 MG/1 ML VIAL IV PUSH SCH (08:47)
[2017-06-13] MEDS: FUROSEMIDE 40 MG TAB PO SCH (08:47)
[2017-06-13] MEDS: NICOTINE 21 MG/24 HR PATCH T-DERMAL SCH (08:48)
[2017-06-13] MEDS: REMOVE OLD PATCH T-DERMAL SCH (08:48)
[2017-06-13] MEDS: MESALAMINE 250 MG CAP PO SCH ×4 (08:48→20:26)
[2017-06-13] MEDS: RESP: ALBUTEROL 2.5 MG/IPRATROPIUM 0.5 MG NEB (PRN) NEB (09:42)
[2017-06-13 13:29] LABS: AUTOMATED NEUTROPHIL # 15.6 TH/MM3 (1.8-7.7); BASOPHIL % 0.2 % (0.0-2.0); EOSINOPHIL % 0.3 % (0.0-4.0); HEMATOCRIT 27.9 % (39.0-51.0); HEMO FLAGS DIFF FINAL; LYMPH % 5.1 % (9.0-44.0); LYMPHOCYTE # 0.9 TH/MM3 (1.0-4.8); MEAN CELL VOLUME 88.3 FL (80.0-100.0); MEAN CORPUSCULAR HEMOGLOBIN 28.1 PG (27.0-34.0); MEAN CORPUSCULAR HGB CONC 31.8 % (32.0-36.0); MONO % 8.5 % (0.0-8.0); NEUT % 85.9 % (16.0-70.0); PLATELET COUNT 194 TH/MM3 (150-450); RED BLOOD COUNT 3.16 MIL/MM3 (4.50-5.90); RED CELL DISTRIBUTION WIDTH 15.9 % (11.6-17.2); WHITE BLOOD COUNT 18.1 TH/MM3 (4.0-11.0)
[2017-06-13 13:56] LABS: ANION GAP 10 MEQ/L (5-15); AST (GOT) 47 U/L (15-37); BICARBONATE 25.9 MEQ/L (21.0-32.0); BLOOD UREA NITROGEN 7 MG/DL (7-18); CHLORIDE 102 MEQ/L (98-107); GLOMERULAR FILTRATION RATE 122 ML/MIN (>89); MAGNESIUM 1.2 MG/DL (1.5-2.5); POTASSIUM 3.5 MEQ/L (3.5-5.1); SODIUM (NA) 138 MEQ/L (136-145)
[2017-06-13 13:59] LABS: ALKALINE PHOSPHATASE 208 U/L (45-117); ALT (GPT) 35 U/L (12-78); TOTAL BILIRUBIN ADULT 0.6 MG/DL (0.2-1.0)
--- NOTE | 2017-06-13 14:18 | HHI.GIFU ---
Subjective Remarks Pt resting in bed comfortably, in no apparent distress. He reports abdominal pain is improving. His stools have been formed today. Appetite is poor, he only had a few bites of lunch. Denies N/V. Objective Vitals I&O Vital Signs Date Time Temp Pulse Resp B/P (MAP) Pulse Ox O2 Delivery O2 Flow Rate FiO2 06/13/17 09:43 98 06/13/17 08:00 98.2 88 20 108/65 (79) 97 06/13/17 04:00 98.0 84 18 106/62 (77) 100 06/13/17 00:00 97.8 87 20 113/64 (80) 96 06/12/17 20:15 Room Air 06/12/17 20:00 97.7 99 20 115/71 (86) 99 06/12/17 17:51 Room Air 2.00 21 06/12/17 16:01 98.0 96 19 108/61 (77) 97 I/O 06/12/17 06/12/17 06/12/17 06/13/17 06/13/17 06/13/17 07:00 15:00 23:00 07:00 15:00 23:00 Intake Total 480 ml 240 ml 480 ml 1200 ml Balance 480 ml 240 ml 480 ml 1200 ml Intake Oral 480 ml 240 ml 480 ml 1200 ml # Voids 5 1 6 6 # Bowel Movements 1 1 4 4 Laboratory Laboratory Tests Test 06/13/17 12:30 White Blood Count 18.1 Red Blood Count 3.16 Hemoglobin 8.9 Hematocrit 27.9 Mean Corpuscular Volume 88.3 Mean Corpuscular Hemoglobin 28.1 Mean Corpuscular Hemoglobin Concent 31.8 Red Cell Distribution Width 15.9 Platelet Count 194 Mean Platelet Volume 8.4 Neutrophils (%) (Auto) 85.9 Lymphocytes (%) (Auto) 5.1 Monocytes (%) (Auto) 8.5 Eosinophils (%) (Auto) 0.3 Basophils (%) (Auto) 0.2 Neutrophils # (Auto) 15.6 Lymphocytes # (Auto) 0.9 Monocytes # (Auto) 1.5 Eosinophils # (Auto) 0.0 Basophils # (Auto) 0.0 CBC Comment DIFF FINAL Differential Comment Blood Urea Nitrogen 7 Creatinine 0.68 Random Glucose 130 Total Protein 5.6 Albumin 2.3 Calcium Level 7.9 Phosphorus Level 3.0 Magnesium Level 1.2 Alkaline Phosphatase 208 Aspartate Amino Transf (AST/SGOT) 47 Alanine Aminotransferase (ALT/SGPT) 35 Total Bilirubin 0.6 Sodium Level 138 Potassium Level 3.5 Chloride Level 102 Carbon Dioxide Level 25.9 Anion Gap 10 Estimat Glomerular Filtration Rate 122 Date/Time Source Procedure Growth Status 06/09/17 20:10 Blood Peripheral Aerobic Blood Culture - Preliminary NO GROWTH IN 4 DAYS Resulted 06/09/17 20:10 Blood Peripheral Anaerobic Blood Culture - Preliminary NO GROWTH IN 4 DAYS Resulted 06/06/17 22:15 Urine Clean Catch Urine Culture - Final <10,000 CFU/ML GRAM POSITIVE ARACELIS Complete Imaging Last Impressions Abdomen/Pelvis CT 06/12/17 0000 Signed Impressions: Service Date/Time: Monday, June 12, 2017 19:04 - CONCLUSION: 1. Several areas of wall thickening involving the distal ileum with skip areas consistent with probable Crohn's disease. 2. Moderate amount of ascites throughout the abdomen and pelvis. 3. Right inguinal hernia containing ascites fluid. 4. Hepatosplenomegaly. 5. Nodular liver suggesting cirrhosis. 6. Multiple calcified nonobstructing bilateral renal calculi. 7. Tiny bilateral pleural effusions. García Devine MD Abdomen X-Ray 06/08/17 0600 Signed Impressions: Service Date/Time: May 06:47 - CONCLUSION: Interval improvement of air-filled dilated loops of small bowel compared 06/06/17 with minimal residual air-filled dilatation of a single loop of small bowel within the central abdomen on today's examination. García Devine MD Cyst Biopsy Asp-Paracentesis US 06/07/17 0000 Signed Impressions: Service Date/Time: Wednesday, June 07, 2017 10:40 - CONCLUSION: Uncomplicated ultrasound guided paracentesis. Lalo Zavala Jr., MD Chest X-Ray 06/07/17 0000 Signed Impressions: Service Date/Time: Wednesday, June 07, 2017 02:41 - CONCLUSION: No acute disease. Oc Foster MD Physical Exam HEENT: Normocephalic thin face; atraumatic; no jaundice. CHEST: CTA CARDIAC: RRR ABDOMEN: Mildly distended, abdomen soft, bowel sounds active x 4 EXTREMITIES: No clubbing, cyanosis, mild BLE edema SKIN: Normal; no rash; no jaundice. CLASS B DRIVER: No focal deficits; alert and oriented times three. Assessment and Plan Plan ASSESSMENT: - Abdominal pain- Improving, decrease appetite today. Hx Crohn's. CT abd/pelv W/O IV contrast (06/12) --> Several areas of wall thickening involving the distal ileum with skip areas consistent with probably Crohn's disease. Moderate amount of ascites throuhout the abdomen and pelvis. Right inguinal hernia containing ascites fluid. Hepatosplenomegaly. Nodular liver suggesting cirrhosis. Multiple calcified nonobstructing bilateral renal calculi. Tiny bilateral pleural effusions. - Liver cirrhosis- Elevated AFP 12.0. GGT elevated 520. Hepatitis panel negative. Alk phos-208. Alk phos iso enzymes, celiac panel pending. Plan for TIPS tomorrow. - Ascites. Distension improving, abdomen soft today. S/P US guided paracentesis with 4,900cc of clear fluid on 06/07/17. Spironolactone, Lasix. - Crohns Disease- Reports improving consistency in stool- approx 4 BMs a day- denies blood in stool. Pentasa. Solumedrol. CR following. - Anemia, normocytic. H/H stable - Depression, Anxiety, Asthma, per attending. PLAN: - TIPS tomorrow - WENCESLAO - Cont Pentasa - Cont Solumedrol - Cont Spironolactone - Monitor HH - Transfuse as necessary - Supportive care - Pt seen and examined by and myself and this note is written on his behalf Dinorah Gillespie Jun 13, 2017 14:18
--- NOTE | 2017-06-13 17:57 | HHI.PR ---
Subjective Remarks abdominal pain is much improved. Pain controlled. Denies diarrhea. Objective Vitals Vital Signs Date Time Temp Pulse Resp B/P (MAP) Pulse Ox O2 Delivery O2 Flow Rate FiO2 06/13/17 17:31 96 21 06/13/17 12:00 98.4 103 20 119/61 (80) 96 06/13/17 09:43 98 06/13/17 08:00 98.2 88 20 108/65 (79) 97 06/13/17 04:00 98.0 84 18 106/62 (77) 100 06/13/17 00:00 97.8 87 20 113/64 (80) 96 06/12/17 20:15 Room Air 06/12/17 20:00 97.7 99 20 115/71 (86) 99 I/O 06/12/17 06/12/17 06/12/17 06/13/17 06/13/17 06/13/17 07:00 15:00 23:00 07:00 15:00 23:00 Intake Total 480 ml 240 ml 480 ml 1200 ml Balance 480 ml 240 ml 480 ml 1200 ml Intake Oral 480 ml 240 ml 480 ml 1200 ml # Voids 5 1 6 6 # Bowel Movements 1 1 4 4 Result Diagram: 06/13/17 1230 06/13/17 1230 Imaging Last Impressions Abdomen/Pelvis CT 06/12/17 0000 Signed Impressions: Service Date/Time: Monday, June 12, 2017 19:04 - CONCLUSION: 1. Several areas of wall thickening involving the distal ileum with skip areas consistent with probable Crohn's disease. 2. Moderate amount of ascites throughout the abdomen and pelvis. 3. Right inguinal hernia containing ascites fluid. 4. Hepatosplenomegaly. 5. Nodular liver suggesting cirrhosis. 6. Multiple calcified nonobstructing bilateral renal calculi. 7. Tiny bilateral pleural effusions. García Devine MD Abdomen X-Ray 06/08/17 0600 Signed Impressions: Service Date/Time: May 06:47 - CONCLUSION: Interval improvement of air-filled dilated loops of small bowel compared 06/06/17 with minimal residual air-filled dilatation of a single loop of small bowel within the central abdomen on today's examination. García Devine MD Cyst Biopsy Asp-Paracentesis US 06/07/17 0000 Signed Impressions: Service Date/Time: Wednesday, June 07, 2017 10:40 - CONCLUSION: Uncomplicated ultrasound guided paracentesis. Lalo Zavala Jr., MD Chest X-Ray 06/07/17 0000 Signed Impressions: Service Date/Time: Wednesday, June 07, 2017 02:41 - CONCLUSION: No acute disease. Oc Foster MD Objective Remarks AAOx3 PERRLA Clear lungs BL Abdomen soft, non tender, non distended, bowel sounds present. No edema in lower extremities Medications and IVs Current Medications Medications (Trade) Dose Ordered Sig/Vikki Route Start Time Stop Time Status Last Admin (NS Flush) 2 ml UNSCH PRN IV FLUSH 06/06/17 23:30 06/11/17 01:58 (NS Flush) 2 ml BID IV FLUSH 06/07/17 09:00 06/13/17 20:27 (Zofran Inj) 4 mg Q6H PRN IVP 06/06/17 23:30 (Narcan Inj) 0.4 mg UNSCH PRN IV PUSH 06/06/17 23:30 (Duoneb Neb) 1 ampule Q4HR NEB PRN NEB 06/06/17 23:30 06/13/17 09:42 (Pentasa Sr) 1,000 mg QID PO 06/07/17 18:00 06/13/17 20:26 (Lasix) 40 mg DAILY PO 06/08/17 09:00 Future hold 06/13/17 08:47 (Xanax) 0.5 mg Q8H PRN PO 06/07/17 18:00 06/13/17 16:14 (Habitrol 21 Mg Patch.24 Hr) 1 patch DAILY T-DERMAL 06/07/17 18:00 06/13/17 08:48 Miscellaneous Information 1 DAILY T-DERMAL 06/07/17 18:00 06/13/17 08:48 (Tylenol) 650 mg Q4H PRN PO 06/08/17 17:30 (Benadryl) 25 mg Q4H PRN PO 06/08/17 17:30 06/08/17 20:13 (Aldactone) 75 mg DAILY PO 06/10/17 09:00 06/13/17 08:47 (Percocet 5-325 Mg) 1 tab Q4H PRN PO 06/11/17 17:00 12/5/17 16:14 (Percocet 5-325 Mg) 2 tab Q4H PRN PO 06/11/17 17:00 06/13/17 20:26 (Morphine Inj) 4 mg Q6H PRN IV PUSH 06/11/17 17:00 (SoluMEDROL INJ) 20 mg DAILY IV PUSH 06/14/17 09:00 A/P Problem List: (1) Abdominal pain ICD Code: R10.9 - Unspecified abdominal pain Status: Acute (2) Ascites ICD Code: R18.8 - Other ascites Status: Acute (3) Leukocytosis ICD Code: D72.829 - Elevated white blood cell count, unspecified Status: Acute (4) Hypokalemia ICD Code: E87.6 - Hypokalemia Status: Resolved (5) Anemia ICD Code: D64.9 - Anemia, unspecified (6) Tobacco abuse ICD Code: Z72.0 - Tobacco use (7) Crohns disease ICD Code: K50.90 - Crohn's disease, unspecified, without complications (8) UTI (urinary tract infection) ICD Code: N39.0 - Urinary tract infection, site not specified Assessment and Plan (1) Abdominal pain Plan: CT abdomen and pelvis showed improvement in small bowel dilation is May 23. Moderate to severe ascites with liver cirrhosis. Splenomegaly. Nonobstructed right renal calculi. Fluid in right inguinal canal large right hydrocele. Small hiatal hernia. The patient was admitted to the medical floor. The patient is noncompliant with medication. Pain likely secondary to ascites and possibly secondary to Crohn's disease. Hemoccult was obtained in the ED and was positive. GI consulted, recommendations appreciated. Patient started on IV Solu-Medrol and Pentasa for treatment of suspected Crohn's exacerbation. Colorectal surgery surgery has also been consulted and following the patient. Patients are on IV Rocephin to cover empirically for SBP since abdominal ascitic fluid was not sent for analysis. The patient underwent colonoscopy with findings of recurrent Crohn's disease. 06/12 IR consult for TIPS. Continue diet as tolerated, continue IV steroids. Continue pain control with oral Percocet and IV morphine sulfate for breakthrough pain. As per patient pain has been very well controlled on oral medications. 06/13 For TIPS in am, conitnue management as above. NPO at midnight. (2) Ascites Plan: Secondary to liver cirrhosis. The patient status post paracentesis with extraction of near 5 L of ascitic fluid. Furosemide and spironolactone was held due to hypotension which was treated with IV normal saline bolus. The blood pressure eventually improved and Lasix was resumed on 06/11. 06/12 continue Lasix and spironolactone, sodium restricted diet. (3) Leukocytosis Plan: Leukocytosis likely elevated secondary to steroid use. Continue to monitor CBC with differential. WBC elevated at 18.1. (4) Hypokalemia Plan: Mild hypokalemia with potassium 3.4 on admission. Now improved after repletion. Continue to monitor BMP and potassium levels. 06/10 labs pending. Replace if needed. 06/11 potassium was 3.2 yesterday, replaced orally and now normal at 4.0. Continue to monitor BMP. (5) Anemia Plan: Hemoglobin trending down from 8.0 on admission to 7.5 on 06/08/17. Patient states he feels very tired. 06/09 status post transfusion of 1 unit of packed red blood cells with appropriate hemoglobin rise. 06/11 hemoglobin slowly trending down from 9.14 8.7-8.6. Continue to monitor CBC. (6) Tobacco abuse Plan: Patient started on nicotine patch, continue. Advised smoking cessation. (7) Crohns disease Plan: No evidence of Crohn's exacerbation on CT of the abdomen. However the patient is being with IV Solu-Medrol and Pentasa as per GI recommendations. 06/13 Continue IV steroids as per GI/colorectal surgery recommendations. (8) UTI (urinary tract infection) ICD Code: N39.0 - Urinary tract infection, site not specified Plan: Urinalysis obtained on 05/29/17 was positive for a urinary tract infection. On IV Rocephin for . Urine culture concurrent with contamination 06/13 Rocephon discontinued 06/13. Assessment and Plan GI prophylaxis: Continue PPI. DVT prophylaxis: SCDs, no chemoprophylaxis given anemia, stool guaiac positive stool obtained in the ED and downtrending hemoglobin. GI prophylaxis: Continue PPI. DVT prophylaxis: SCDs, no chemoprophylaxis given anemia, stool guaiac positive stool obtained in the ED and downtrending hemoglobin. Discharge Planning Continue to monitor in the medical floor. Pending GI clearance, TIPS, colorectal surgery clearance. Problem Qualifiers (1) Ascites: Qualified Codes: K70.31 - Alcoholic cirrhosis of liver with ascites (2) Leukocytosis: Qualified Codes: D72.829 - Elevated white blood cell count, unspecified Billy Escalante MD Jun 13, 2017 17:57
--- NOTE | 2017-06-13 19:01 | HHI.PR ---
Subjective Remarks CR Surg afebrile, VSS debi PO but abd distention +BM Objective - Vital Signs Date Time Temp Pulse Resp B/P (MAP) Pulse Ox O2 Delivery O2 Flow Rate FiO2 06/13/17 17:31 96 21 06/13/17 16:00 98.6 105 18 102/65 (77) 06/12/17 20:15 Room Air 06/12/17 17:51 2.00 Result Diagram: 06/13/17 1230 06/13/17 1230 Objective Remarks PE Abd - lg, less tight, +tympany non-tender A/P Assessment and Plan Imp: stable, CT - ascites, still chroically distended loop of TI Discussed with pt, will proceed with TIPS to help with recurrent ascites Then decide on poss bowel resection Ashwin Lane MD Jun 13, 2017 19:01
[2017-06-14] VITALS: BP 104/62; PULSE 88; RESP 20; TEMP 97.8; O2SAT 95
[2017-06-14] MEDS: oxyCODONE/ACETAMINOPHEN 5 MG/325 MG TAB PO PRN ×5 (00:32→21:01)
[2017-06-14] MEDS: ALPRAZolam 0.5 MG TAB PO PRN ×3 (00:32→16:52)
[2017-06-14] MEDS: MAGNESIUM SULFATE 1 GM PREMIX 100 ML IV SCH ×2 (02:06→03:16)
[2017-06-14 04:00] VITALS: BP 114/54; PULSE 98; RESP 18; TEMP 97.6; O2SAT 97
[2017-06-14] MEDS: RESP: ALBUTEROL 2.5 MG/IPRATROPIUM 0.5 MG NEB (PRN) NEB (05:19)
[2017-06-14] MEDS: SODIUM CHLORIDE 0.9% FLUSH 10 ML FLUSH IV FLUSH SCH ×2 (07:36→21:02)
[2017-06-14 07:42] LABS: HEMATOCRIT 28.5 % (39.0-51.0); MEAN CORPUSCULAR HEMOGLOBIN 28.7 PG (27.0-34.0); MEAN CORPUSCULAR HGB CONC 32.2 % (32.0-36.0); PLATELET COUNT 228 TH/MM3 (150-450); RED CELL DISTRIBUTION WIDTH 15.6 % (11.6-17.2); REVIEW FLAG FINAL; WHITE BLOOD COUNT 17.7 TH/MM3 (4.0-11.0)
[2017-06-14 08:04] VITALS: BP 106/55; PULSE 86; RESP 17; TEMP 97.7; O2SAT 97
[2017-06-14 08:13] LABS: BICARBONATE 27.5 MEQ/L (21.0-32.0); POTASSIUM 3.3 MEQ/L (3.5-5.1)
[2017-06-14] MEDS: NICOTINE 21 MG/24 HR PATCH T-DERMAL SCH (08:36)
[2017-06-14] MEDS: FUROSEMIDE 40 MG TAB PO SCH (08:36)
[2017-06-14] MEDS: SPIRONOLACTONE 25 MG TAB PO SCH (08:36)
[2017-06-14] MEDS: REMOVE OLD PATCH T-DERMAL SCH (08:36)
[2017-06-14] MEDS: MESALAMINE 250 MG CAP PO SCH ×4 (08:37→22:00)
[2017-06-14] MEDS ORDERED: methylPREDNISolone SOD SUCC 40 MG/1 ML VIAL IV PUSH SCH (09:00)
[2017-06-14] MEDS ORDERED: POTASSIUM CHLORIDE 10 MEQ CONTROLLED RELEASE TAB PO ONE (09:30)
[2017-06-14 10:41] VITALS: O2SAT 95
[2017-06-14 11:52] LABS: IGA SERUM LESS THAN 5 mg/dL (81-463)
[2017-06-14 12:19] VITALS: BP 112/58; PULSE 90; RESP 17; TEMP 97.7; O2SAT 99
[2017-06-14 13:55] LABS: ENDOMYSIAL AB TITER ND (<1:5); TISSUE TRANSGLUTAMINASE AB LESS THAN 1 U/mL (0-4)
--- NOTE | 2017-06-14 15:19 | PD.RAD ---
Post Procedure Progress Note Pre Procedure Diagnosis: (1) Alcohol abuse (2) Liver disease (3) Ascites due to alcoholic cirrhosis Post Procedure Diagnosis: (1) Exacerbation of Crohn's disease (2) Ascites Procedure Date: Jun 14, 2017 Supervising Radiologist: Preston Gonzalez Proceduralist/Assist: Jhon White, RT(R), Michi Morgan RT(R) Anesthesia: General Plan of Activity Patient to Unit: Nursing Unit Patient Condition: Good See PACS Report for procedural detail/treatment Preston Gonzalez MD Jun 14, 2017 15:18
--- NOTE | 2017-06-14 15:31 | HHI.PR ---
Subjective Remarks patient seen at 11:30 am Patient states abdominal pain is improving. Denies cp/sob. Objective Vitals Vital Signs Date Time Temp Pulse Resp B/P (MAP) Pulse Ox O2 Delivery O2 Flow Rate FiO2 06/14/17 12:19 97.7 90 17 112/58 (76) 99 06/14/17 10:41 95 21 06/14/17 08:46 Room Air 21 06/14/17 08:04 97.7 86 17 106/55 (72) 97 06/14/17 04:00 97.6 98 18 114/54 (74) 97 06/14/17 00:00 97.8 88 20 104/62 (76) 95 06/13/17 20:00 98.0 95 18 109/70 (83) 97 06/13/17 19:45 Room Air 06/13/17 17:31 96 21 06/13/17 16:00 98.6 105 18 102/65 (77) 95 I/O 06/13/17 06/13/17 06/13/17 06/14/17 06/14/17 06/14/17 07:00 15:00 23:00 07:00 15:00 23:00 Intake Total 1200 ml 720 ml 210 ml Output Total 1500 ml Balance 1200 ml -780 ml 210 ml Intake Oral 1200 ml 720 ml IV Total 210 ml Output Urine Total 1500 ml # Voids 6 # Bowel Movements 4 1 Result Diagram: 06/14/17 0615 06/14/17 0615 Imaging Last Impressions Abdomen/Pelvis CT 06/12/17 0000 Signed Impressions: Service Date/Time: Monday, June 12, 2017 19:04 - CONCLUSION: 1. Several areas of wall thickening involving the distal ileum with skip areas consistent with probable Crohn's disease. 2. Moderate amount of ascites throughout the abdomen and pelvis. 3. Right inguinal hernia containing ascites fluid. 4. Hepatosplenomegaly. 5. Nodular liver suggesting cirrhosis. 6. Multiple calcified nonobstructing bilateral renal calculi. 7. Tiny bilateral pleural effusions. García Devine MD Abdomen X-Ray 06/08/17 0600 Signed Impressions: Service Date/Time: May 06:47 - CONCLUSION: Interval improvement of air-filled dilated loops of small bowel compared 06/06/17 with minimal residual air-filled dilatation of a single loop of small bowel within the central abdomen on today's examination. García Devine MD Cyst Biopsy Asp-Paracentesis US 06/07/17 0000 Signed Impressions: Service Date/Time: Wednesday, June 07, 2017 10:40 - CONCLUSION: Uncomplicated ultrasound guided paracentesis. Lalo Zavala Jr., MD Chest X-Ray 06/07/17 0000 Signed Impressions: Service Date/Time: Wednesday, June 07, 2017 02:41 - CONCLUSION: No acute disease. Oc Foster MD Objective Remarks AAOx3 PERRLA Clear lungs BL Abdomen soft, non tender, non distended, bowel sounds present. No edema in lower extremities Medications and IVs Current Medications Medications (Trade) Dose Ordered Sig/Vikki Route Start Time Stop Time Status Last Admin (NS Flush) 2 ml UNSCH PRN IV FLUSH 06/06/17 23:30 06/11/17 01:58 (NS Flush) 2 ml BID IV FLUSH 06/07/17 09:00 06/14/17 07:36 (Zofran Inj) 4 mg Q6H PRN IVP 06/06/17 23:30 (Narcan Inj) 0.4 mg UNSCH PRN IV PUSH 06/06/17 23:30 (Duoneb Neb) 1 ampule Q4HR NEB PRN NEB 06/06/17 23:30 06/14/17 05:19 (Pentasa Sr) 1,000 mg QID PO 06/07/17 18:00 06/14/17 08:37 (Lasix) 40 mg DAILY PO 06/08/17 09:00 Future hold 06/14/17 08:36 (Xanax) 0.5 mg Q8H PRN PO 06/07/17 18:00 06/14/17 08:37 (Habitrol 21 Mg Patch.24 Hr) 1 patch DAILY T-DERMAL 06/07/17 18:00 06/14/17 08:36 Miscellaneous Information 1 DAILY T-DERMAL 06/07/17 18:00 06/14/17 08:36 (Tylenol) 650 mg Q4H PRN PO 06/08/17 17:30 (Benadryl) 25 mg Q4H PRN PO 06/08/17 17:30 06/08/17 20:13 (Aldactone) 75 mg DAILY PO 06/10/17 09:00 06/14/17 08:36 (Percocet 5-325 Mg) 1 tab Q4H PRN PO 06/11/17 17:00 06/14/17 08:37 (Percocet 5-325 Mg) 2 tab Q4H PRN PO 06/11/17 17:00 06/14/17 04:37 (Morphine Inj) 4 mg Q6H PRN IV PUSH 06/11/17 17:00 (SoluMEDROL INJ) 20 mg DAILY IV PUSH 06/14/17 09:00 06/14/17 08:36 A/P Problem List: (1) Abdominal pain ICD Code: R10.9 - Unspecified abdominal pain Status: Acute (2) Ascites ICD Code: R18.8 - Other ascites Status: Acute (3) Leukocytosis ICD Code: D72.829 - Elevated white blood cell count, unspecified Status: Acute (4) Hypokalemia ICD Code: E87.6 - Hypokalemia Status: Resolved (5) Anemia ICD Code: D64.9 - Anemia, unspecified (6) Tobacco abuse ICD Code: Z72.0 - Tobacco use Plan: Patient started on nicotine patch, continue. Advised smoking cessation. (7) Crohns disease ICD Code: K50.90 - Crohn's disease, unspecified, without complications Plan: CT of the abdomen and pelvis shows several areas of wall thickening involving the distal ileum with skip areas consistent with probable Crohn's disease. Moderate amount of ascites throughout the abdomen and pelvis. Right inguinal hernia containing ascitic fluid. Hepatosplenomegaly. Nodular liver suggesting cirrhosis. Multiple calcified nonobstructing bilateral renal calculi. Tiny bilateral pleural effusions. (8) UTI (urinary tract infection) ICD Code: N39.0 - Urinary tract infection, site not specified Assessment and Plan (1) Abdominal pain Plan: CT abdomen and pelvis showed improvement in small bowel dilation is May 23. Moderate to severe ascites with liver cirrhosis. Splenomegaly. Nonobstructed right renal calculi. Fluid in right inguinal canal large right hydrocele. Small hiatal hernia. The patient was admitted to the medical floor. The patient is noncompliant with medication. Pain likely secondary to ascites and possibly secondary to Crohn's disease. Hemoccult was obtained in the ED and was positive. GI consulted, recommendations appreciated. Patient started on IV Solu-Medrol and Pentasa for treatment of suspected Crohn's exacerbation. Colorectal surgery surgery has also been consulted and following the patient. Patients are on IV Rocephin to cover empirically for SBP since abdominal ascitic fluid was not sent for analysis. The patient underwent colonoscopy with findings of recurrent Crohn's disease. 06/12 IR consult for TIPS. Continue diet as tolerated, continue IV steroids. Continue pain control with oral Percocet and IV morphine sulfate for breakthrough pain. As per patient pain has been very well controlled on oral medications. 06/13 For TIPS in am, conitnue management as above. NPO at midnight. 06/14 fo TIPS later today. (2) Ascites Plan: Secondary to liver cirrhosis. The patient status post paracentesis with extraction of near 5 L of ascitic fluid. Furosemide and spironolactone was held due to hypotension which was treated with IV normal saline bolus. The blood pressure eventually improved and Lasix was resumed on 06/11. Continue Lasix and spironolactone, sodium restricted diet. (3) Leukocytosis Plan: Leukocytosis likely elevated secondary to steroid use. Continue to monitor CBC with differential. WBC elevated at 18.1. 06/14 WBC slowly trending down - 18.1 ---> 17.7. Continue to monitor CBC. (4) Hypokalemia Plan: Mild hypokalemia with potassium 3.4 on admission. Now improved after repletion. Continue to monitor BMP and potassium levels. 06/10 labs pending. Replace if needed. 06/11 potassium was 3.2 yesterday, replaced orally and now normal at 4.0. Continue to monitor BMP. 06/14 K low 3.3 , replace and monitor BMP. (5) Anemia Plan: Hemoglobin trending down from 8.0 on admission to 7.5 on 06/08/17. Patient states he feels very tired. 06/09 status post transfusion of 1 unit of packed red blood cells with appropriate hemoglobin rise. 06/11 hemoglobin slowly trending down from 9.14 8.7-8.6. Continue to monitor CBC. 06/14 hemoglobin stable - 9.2. Continue to monitor hemoglobin. (6) Tobacco abuse Plan: Patient started on nicotine patch, continue. Advised smoking cessation. (7) Crohns disease Plan: No evidence of Crohn's exacerbation on CT of the abdomen on 06/06. However the patient is being with IV Solu-Medrol and Pentasa as per GI recommendations. 06/13 Continue IV steroids as per GI/colorectal surgery recommendations. 06/14 and PTT of the abdomen and pelvis on 06/12/17 is concordant with Crohn's disease. (8) UTI (urinary tract infection) ICD Code: N39.0 - Urinary tract infection, site not specified Plan: Urinalysis obtained on 05/29/17 was positive for a urinary tract infection. On IV Rocephin for . Urine culture concurrent with contamination 06/13 Rocephin discontinued 06/13. Assessment and Plan GI prophylaxis: Continue PPI. DVT prophylaxis: SCDs, no chemoprophylaxis given anemia, stool guaiac positive stool obtained in the ED and downtrending hemoglobin. Discharge Planning Continue to monitor in the medical floor. Pending GI clearance, TIPS, colorectal surgery clearance. Problem Qualifiers (1) Ascites: Qualified Codes: K70.31 - Alcoholic cirrhosis of liver with ascites (2) Leukocytosis: Qualified Codes: D72.829 - Elevated white blood cell count, unspecified Billy Escalante MD Jun 14, 2017 15:31
[2017-06-14] MEDS ORDERED: DO NOT ADM ANY ANTICOAGULANT DRUGS PRN (15:48)
[2017-06-14] MEDS ORDERED: IOHEXOL 350 MG/ML 100 ML BTL (for RAD DIAG) OTHER ONE (15:55)
--- NOTE | 2017-06-14 16:36 | HHI.PR ---
Subjective Remarks CR Surg afebrile, VSS debi PO but abd distention +BM TIPS placed Objective - Vital Signs Date Time Temp Pulse Resp B/P (MAP) Pulse Ox O2 Delivery O2 Flow Rate FiO2 06/14/17 15:43 97.4 90 20 123/76 (92) 100 Nasal Cannula 2 06/14/17 10:41 21 Result Diagram: 06/14/1761406/14/1715 Objective Remarks PE Abd - lg, less tight, +tympany non-tender A/P Assessment and Plan Imp: stable, CT - ascites See how his abd is after TIPS, decide on poss bowel resection Ashwin Lane MD Jun 14, 2017 16:36
--- NOTE | 2017-06-14 17:37 | HHI.GIFU ---
Subjective Remarks Pt complaining of abdominal pain, he just returned from having TIPS procedure done. (Dinorah Gillespie) Objective Vitals I&O Vital Signs Date Time Temp Pulse Resp B/P (MAP) Pulse Ox O2 Delivery O2 Flow Rate FiO2 06/14/17 16:30 97.6 74 20 101/55 (70) 100 Room Air 06/14/17 16:15 90 20 114/73 (87) 100 Room Air 06/14/17 16:00 79 20 113/73 (86) 100 06/14/17 15:43 97.4 90 20 123/76 (92) 100 Nasal Cannula 2 06/14/17 12:19 97.7 90 17 112/58 (76) 99 06/14/17 10:41 95 21 06/14/17 08:46 Room Air 21 06/14/17 08:04 97.7 86 17 106/55 (72) 97 06/14/17 04:00 97.6 98 18 114/54 (74) 97 06/14/17 00:00 97.8 88 20 104/62 (76) 95 06/13/17 20:00 98.0 95 18 109/70 (83) 97 06/13/17 19:45 Room Air I/O 06/13/17 06/13/17 06/13/17 06/14/17 06/14/17 06/14/17 07:00 15:00 23:00 07:00 15:00 23:00 Intake Total 1200 ml 720 ml 210 ml Output Total 1500 ml 500 ml Balance 1200 ml -780 ml 210 ml -500 ml Intake Oral 1200 ml 720 ml IV Total 210 ml Output Urine Total 1500 ml 500 ml # Voids 6 3 # Bowel Movements 4 1 Laboratory Laboratory Tests Test 06/14/17 06:15 06/14/17 16:56 White Blood Count 17.7 Red Blood Count 3.20 Hemoglobin 9.2 Hematocrit 28.5 Mean Corpuscular Volume 89.0 Mean Corpuscular Hemoglobin 28.7 Mean Corpuscular Hemoglobin Concent 32.2 Red Cell Distribution Width 15.6 Platelet Count 228 Mean Platelet Volume 8.5 Blood Urea Nitrogen 9 Creatinine 0.55 Random Glucose 99 Calcium Level 8.3 Phosphorus Level 3.4 Magnesium Level 2.0 Sodium Level 136 Potassium Level 3.3 Chloride Level 101 Carbon Dioxide Level 27.5 Anion Gap 8 Estimat Glomerular Filtration Rate 156 Ammonia 25 Date/Time Source Procedure Growth Status 06/09/17 20:10 Blood Peripheral Aerobic Blood Culture - Final NO GROWTH IN 5 DAYS Complete 06/09/17 20:10 Blood Peripheral Anaerobic Blood Culture - Final NO GROWTH IN 5 DAYS Complete 06/06/17 22:15 Urine Clean Catch Urine Culture - Final <10,000 CFU/ML GRAM POSITIVE ARACELIS Complete Imaging Last Impressions Abdomen/Pelvis CT 06/12/17 0000 Signed Impressions: Service Date/Time: Monday, June 12, 2017 19:04 - CONCLUSION: 1. Several areas of wall thickening involving the distal ileum with skip areas consistent with probable Crohn's disease. 2. Moderate amount of ascites throughout the abdomen and pelvis. 3. Right inguinal hernia containing ascites fluid. 4. Hepatosplenomegaly. 5. Nodular liver suggesting cirrhosis. 6. Multiple calcified nonobstructing bilateral renal calculi. 7. Tiny bilateral pleural effusions. García Devine MD Abdomen X-Ray 06/08/17 0600 Signed Impressions: Service Date/Time: May 06:47 - CONCLUSION: Interval improvement of air-filled dilated loops of small bowel compared 06/06/17 with minimal residual air-filled dilatation of a single loop of small bowel within the central abdomen on today's examination. García Devine MD Cyst Biopsy Asp-Paracentesis US 06/07/17 0000 Signed Impressions: Service Date/Time: Wednesday, June 07, 2017 10:40 - CONCLUSION: Uncomplicated ultrasound guided paracentesis. Lalo Zavala Jr., MD Chest X-Ray 06/07/17 0000 Signed Impressions: Service Date/Time: Wednesday, June 07, 2017 02:41 - CONCLUSION: No acute disease. Oc Foster MD Physical Exam HEENT: Normocephalic thin face; atraumatic; no jaundice. CHEST: CTA CARDIAC: RRR ABDOMEN: Mildly distended, diffuse TTP, bowel sounds active x 4 EXTREMITIES: No clubbing, cyanosis, mild BLE edema SKIN: Normal; no rash; no jaundice. PATTERN CLERK: No focal deficits; alert and oriented times three. (Dinorah Gillespie) Assessment and Plan Plan ASSESSMENT: - Abdominal pain- Worse S/P TIPS procedure done today. Hx Crohn's. CT abd/pelv W/O IV contrast (06/12) --> Several areas of wall thickening involving the distal ileum with skip areas consistent with probably Crohn's disease. Moderate amount of ascites throuhout the abdomen and pelvis. Right inguinal hernia containing ascites fluid. Hepatosplenomegaly. Nodular liver suggesting cirrhosis. Multiple calcified nonobstructing bilateral renal calculi. Tiny bilateral pleural effusions. - Liver cirrhosis- Elevated AFP 12.0. GGT elevated 520. Hepatitis panel negative. Alk phos-208. Alk phos iso enzymes, celiac panel pending. TIPS procedure done today - Ascites. Distension improving, S/P US guided paracentesis with 4,900cc of clear fluid on 06/07/17. Spironolactone, Lasix. - Crohns Disease- Reports improving consistency in stool- approx 4 BMs a day- denies blood in stool. Pentasa. Solumedrol. CR following. - Anemia, normocytic. H/H stable - Depression, Anxiety, Asthma, per attending. PLAN: - WENCES[facility]O - Cont Pentasa - Cont Solumedrol - Cont Spironolactone - Cont Lasix - Monitor HH - Transfuse as necessary - Supportive care - Pt seen and examined by and myself and this note is written on his behalf (Dinorah Gillespie) Physician Comments S/P TIPS. Monitor for encephalopathy. (Moises Chou MD) Dinorah Gillespie Jun 14, 2017 17:37 Moises Chou MD Jun 14, 2017 18:00
[2017-06-14 21:25] VITALS: BP 105/57; PULSE 94; RESP 20; TEMP 97.5; O2SAT 98
[2017-06-15 00:03] VITALS: BP 117/58; PULSE 95; RESP 18; TEMP 98; O2SAT 95
[2017-06-15] MEDS: oxyCODONE/ACETAMINOPHEN 5 MG/325 MG TAB PO PRN ×4 (01:02→13:52)
[2017-06-15 04:28] VITALS: BP 96/57; PULSE 86; RESP 18; TEMP 98.2; O2SAT 95
[2017-06-15] MEDS: ALPRAZolam 0.5 MG TAB PO PRN ×2 (05:14→13:51)
--- NOTE | 2017-06-15 07:39 | HHI.PR ---
Subjective Remarks CR Surg afebrile, VSS debi PO but abd distention +BM TIPS placed - more comfortable Objective - Vital Signs Date Time Temp Pulse Resp B/P (MAP) Pulse Ox O2 Delivery O2 Flow Rate FiO2 06/15/17 04:28 98.2 86 18 96/57 (70) 95 06/14/17 20:00 Room Air 06/14/17 15:43 2 06/14/17 10:41 21 Result Diagram: 06/14/1715 06/14/1715 Objective Remarks PE Abd - lg, less tight, +tympany non-tender A/P Assessment and Plan Imp: stable, debi PO cont observation on crohn's RitterAshwin MD Jun 15, 2017 07:39
[2017-06-15 08:00] VITALS: BP 98/57; PULSE 76; RESP 16; TEMP 97.7; O2SAT 98
[2017-06-15 08:12] LABS: HEMATOCRIT 29.6 % (39.0-51.0); MEAN CELL VOLUME 88.2 FL (80.0-100.0); MEAN CORPUSCULAR HGB CONC 32.8 % (32.0-36.0); PLATELET COUNT 260 TH/MM3 (150-450); RED BLOOD COUNT 3.35 MIL/MM3 (4.50-5.90); RED CELL DISTRIBUTION WIDTH 15.3 % (11.6-17.2); REVIEW FLAG FINAL; WHITE BLOOD COUNT 19.9 TH/MM3 (4.0-11.0)
[2017-06-15 08:30] LABS: ALT (GPT) 36 U/L (12-78); ANION GAP 6 MEQ/L (5-15); AST (GOT) 41 U/L (15-37); BLOOD UREA NITROGEN 9 MG/DL (7-18); CHLORIDE 103 MEQ/L (98-107); GLOMERULAR FILTRATION RATE 144 ML/MIN (>89); POTASSIUM 3.6 MEQ/L (3.5-5.1); SODIUM (NA) 140 MEQ/L (136-145)
[2017-06-15 08:32] LABS: ALKALINE PHOSPHATASE 206 U/L (45-117); TOTAL BILIRUBIN ADULT 0.6 MG/DL (0.2-1.0)
[2017-06-15] MEDS: FUROSEMIDE 40 MG TAB PO SCH (08:45)
[2017-06-15] MEDS: SPIRONOLACTONE 25 MG TAB PO SCH (08:45)
[2017-06-15] MEDS: NICOTINE 21 MG/24 HR PATCH T-DERMAL SCH (08:52)
[2017-06-15] MEDS: SODIUM CHLORIDE 0.9% FLUSH 10 ML FLUSH IV FLUSH SCH (08:53)
[2017-06-15] MEDS: MESALAMINE 250 MG CAP PO SCH ×3 (08:53→18:05)
[2017-06-15] MEDS: REMOVE OLD PATCH T-DERMAL SCH (08:53)
[2017-06-15] MEDS ORDERED: methylPREDNISolone SOD SUCC 40 MG/1 ML VIAL IV PUSH SCH (09:00)
--- NOTE | 2017-06-15 09:38 | RADRPT ---
EXAM DATE/TIME: 06/14/2017 15:17 This report includes an Addendum and supersedes previous reports for this exam. [facility] COMPARISON: No previous studies available for comparison. INDICATIONS : 52-year-old male with history of Crohn's and alcoholic cirrhosis with refractory ascites requiring la rge volume paracentesis every week. Patient may require ilial resection and there is significant conc jackson regarding postoperative management given the significant refractory ascites. Following extended c onversation and consultation with multiple specialists, decision as to attempt TIPS placement for man agement of refractory ascites. Referring service as well the patient are aware that pooled complete r esponse rate for ascites with TIPS is reported to be approximately 50%. MEDICAL HISTORY : Anxiety Asthma Depression Crohn's disease SURGICAL HISTORY : Colon resection approximately 22 years ago Tonsillectomy ENCOUNTER: Initial ACUITY: > 1 year PAIN SCORE: 6/10 LOCATION: Lower inguinal abdominal pain FLUORO TIME: 10.4 minutes IMAGE SERIES: 4 ACCESS SITE: Right Jugular vein CONTRAST: 1.) 42 cc Omnipaque (iohexol) 350 DEVICE(S): 1.) Right Portal vein 8.0mm x 60mm 75cm pmo analyst ADJUNCT [employer]HEMAT[employer] INSTRUCTOR balloon 2.) Right vein Syvek pad internal jugular 3.) Right Portal vein 8cm x 2cm Kane Viatorr TIPS prosthesis stent (self expanding) 4.) Right Portal vein 5.5fr 80cm 0.035 ki balloon Anesthesia and pain control was provided by the Anesthesia department. PROCEDURE : Ultrasound-guided right intrajugular puncture Right hepatic venogram Direct right atrium invasive hemodynamic pressure measurements Direct right atrium and portal vein invasive hemodynamic pressure measurements Creation and placement of TIPS Portal venography The risks, benefits and alternatives to the procedure were explained and verbal and written consent w as obtained. The site was prepped in sterile fashion. Full sterile technique was used, including ca p, mask, sterile gloves and gown and a large sterile sheet. Hand hygiene and 2% chlorhexidine and/or betadine/alcohol prep was utilized per protocol for cutaneous antisepsis. Sterile gel and sterile p robe cover were utilized for ultrasound guidance. The skin and subcutaneous tissues were infiltrated with local anesthetic solution. Ultrasound evaluation of the right internal jugular vein demonstrated the vein to be patent. Single i mage was obtained and placed in the PACS archive. Micropuncture needle was then used to access the [facility] intrajugular vein and subsequently exchanged for a 10 Dutch sheath. Right atrial pressures were then obtained through the sheath. Next, a 4 Dutch Pollack catheter was advanced into the right hep atic vein and angiography was performed confirming patency of the right hepatic vein. Catheter was donahue bsequently exchanged for a balloon catheter. The balloon catheter was inflated in the right hepatic v ein and CO2 venography was performed demonstrating patency of the portal vein. The sheath was subsequ ently advanced into the right hepatic vein. Following 3 punctures, portal vein access was obtained wi th the [facility] kit. The catheter was advanced into portal vein and portal venography was perform ed confirming patency of the portal vein. Tract was subsequently dilated with 8 mm balloon and an 8+2 cm x 10 mm Viatorr TIPS stent was placed and subsequently inflated with the 8mm balloon. Followup po rtal venography demonstrated patent TIPS with preferential flow through the TIPS. Small coronary and gastric varices are also demonstrated. These were not embolized given lack of GI bleeding history and expected improvement following TIPS. Wires and catheters were then removed. The puncture site was closed with manual pressure and hemostasis was obtained. The patient tolerated the procedure well and there were no complications. Conscious sedation was performed with the prescribed dosages and duration as above in the presence of an independent trained radiology nurse to assist in the monitoring of the patient. EKG and oximetry remained stable throughout the procedure. Findings: Portal vein is widely patent. A TIPS stent was placed from the right hepatic vein to the right portal vein. Small coronary and gastric varices are demonstrated but were not coiled do to patient's lack o f significant GI bleed history and expected improvement following TIPS placement CONCLUSION: 1. Uncomplicated placement of TIPS stent from the right hepatic vein to the right portal vein. Preston Gonzalez MD on June 15, 2017 at 9:09 Board Certified Radiologist. This report was verified electronically. ADDENDUM: The following were omitted from the original report. Pressure measurements: Pre-TIPS: Right atrium 2 mmHg Post TIPS: Right atrium 9 mmHg, portal vein 18 mmHg, gradient 9 mmHg. Preston Gonzalez MD on June 15, 2017 at 13:28 Board Certified Radiologist. This report was verified electronically.
--- NOTE | 2017-06-15 11:18 | RADRPT ---
EXAM DATE/TIME: 06/15/2017 10:12 [facility] COMPARISON: No previous studies available for comparison. INDICATIONS : Ascities. MEDICAL HISTORY : Chronic obstructive pulmonary disease. Glasses. Dyspnea. Asthma. Chrons. Hiatal hernia. Pancreati tis. Arthritis. Liver disease. Depression. Anxiety. MRSA. SURGICAL HISTORY : Tonsillectomy. Colon resection. ENCOUNTER: Subsequent ACUITY: 3 months PAIN SCORE: 2/10 LOCATION: Abdomen. AREA EVALUATED: Abdomen. FINDINGS: Imaging of the abdomen and pelvis was performed to evaluate for ascites for possible paracentesis. T here is a very small amount of ascites with insufficient pocket for safe paracentesis. CONCLUSION: 1. Very small in ascites with insufficient pocket for safe paracentesis at this time. Preston Gonzalez MD on June 15, 2017 at 11:15 Board Certified Radiologist. This report was verified electronically.
--- NOTE | 2017-06-15 11:34 | RADRPT ---
EXAM DATE/TIME: 06/15/2017 10:54 [facility] COMPARISON: No previous studies available for comparison. INDICATIONS : Evaluate recent TIPPs. MEDICAL HISTORY : Chronic obstructive pulmonary disease. Gastroesophageal reflux disease. Pancreatitis. Liver disease. SURGICAL HISTORY : Tonsillectomy. Colon resection. ENCOUNTER: Initial ACUITY: 1 day PAIN SCORE: 2/10 LOCATION: Right upper quadrant MEASUREMENTS: LIVER: 17.9 cm length FINDINGS: TIPS interrogation ultrasound was performed. Examination is limited and essentially nondiagnostic due to the likely residual sara-stent air from very recent insertion. The main portal vein is patent wit h hepatopedal flow and velocity of 25.8 cm/s. TIPS stent is patent although velocities recorded are n ot reliable. Hepatic veins are patent with hepatofugal flow. Small amount of ascites fluid is noted a long the margin of the liver. CONCLUSION: 1. Patent main portal vein with appropriate hepatopedal flow. 2. Patent TIPS stent. Recorded velocities are unreliable given artifact from very recent insertion. E xamination will be repeated in the next 3 days to serve as new baseline. Preston Gonzalez MD on June 15, 2017 at 11:29 Board Certified Radiologist. This report was verified electronically.
[2017-06-15 12:00] VITALS: BP 113/56; PULSE 102; RESP 16; TEMP 98; O2SAT 99
[2017-06-15 12:08] VITALS: O2SAT 95
--- NOTE | 2017-06-15 14:37 | HHI.GIFU ---
Subjective Remarks Pt sitting up in bed, in no apparent distress. S/P TIPS yesterday, he reports he feels much better. Has had a soft, formed BM. Reports soft abdomen, pain currently 5/10 controlled with oral Percocet. Denies nausea, vomiting. Tolerating diet. (Dinorah Gillespie) Objective Vitals I&O Vital Signs Date Time Temp Pulse Resp B/P (MAP) Pulse Ox O2 Delivery O2 Flow Rate FiO2 06/15/17 12:08 95 06/15/17 12:00 98.0 102 16 113/56 (75) 99 06/15/17 08:00 97.7 76 16 98/57 (71) 98 06/15/17 04:28 98.2 86 18 96/57 (70) 95 06/15/17 00:03 98.0 95 18 117/58 (77) 95 06/14/17 21:25 97.5 94 20 105/57 (73) 98 06/14/17 20:00 Room Air 06/14/17 16:30 97.6 74 20 101/55 (70) 100 Room Air 06/14/17 16:15 90 20 114/73 (87) 100 Room Air 06/14/17 16:00 79 20 113/73 (86) 100 06/14/17 15:43 97.4 90 20 123/76 (92) 100 Nasal Cannula 2 I/O 06/14/17 06/14/17 06/14/17 06/15/17 06/15/17 06/15/17 07:00 15:00 23:00 07:00 15:00 23:00 Intake Total 210 ml 0 ml 720 ml Output Total 500 ml 500 ml Balance 210 ml -500 ml 220 ml Intake Oral 0 ml 720 ml IV Total 210 ml Output Urine Total 500 ml 500 ml # Voids 4 3 # Bowel Movements 0 0 Laboratory Laboratory Tests Test 06/14/17 16:56 06/15/17 07:34 Ammonia 25 White Blood Count 19.9 Red Blood Count 3.35 Hemoglobin 9.7 Hematocrit 29.6 Mean Corpuscular Volume 88.2 Mean Corpuscular Hemoglobin 29.0 Mean Corpuscular Hemoglobin Concent 32.8 Red Cell Distribution Width 15.3 Platelet Count 260 Mean Platelet Volume 8.0 Blood Urea Nitrogen 9 Creatinine 0.59 Random Glucose 77 Total Protein 5.6 Albumin 2.3 Calcium Level 8.5 Alkaline Phosphatase 206 Aspartate Amino Transf (AST/SGOT) 41 Alanine Aminotransferase (ALT/SGPT) 36 Total Bilirubin 0.6 Sodium Level 140 Potassium Level 3.6 Chloride Level 103 Carbon Dioxide Level 31.0 Anion Gap 6 Estimat Glomerular Filtration Rate 144 Date/Time Source Procedure Growth Status 06/09/17 20:10 Blood Peripheral Aerobic Blood Culture - Final NO GROWTH IN 5 DAYS Complete 06/09/17 20:10 Blood Peripheral Anaerobic Blood Culture - Final NO GROWTH IN 5 DAYS Complete 06/06/17 22:15 Urine Clean Catch Urine Culture - Final <10,000 CFU/ML GRAM POSITIVE ARACELIS Complete Imaging Last Impressions Liver Ultrasound 06/15/17 0000 Signed Impressions: Service Date/Time: June 10:54 - CONCLUSION: 1. Patent main portal vein with appropriate hepatopedal flow. 2. Patent TIPS stent. Recorded velocities are unreliable given artifact from very recent insertion. Examination will be repeated in the next 3 days to serve as new baseline. Preston Gonzalez MD Abdomen Ultrasound 06/15/17 0000 Signed Impressions: Service Date/Time: June 10:12 - CONCLUSION: 1. Very small in ascites with insufficient pocket for safe paracentesis at this time. Preston Gonzalez MD TIPS (Transven [facility] [place]) 06/14/17 1856 Signed Impressions: Service Date/Time: Wednesday, June 14, 2017 15:17 - CONCLUSION: 1. Uncomplicated placement of TIPS stent from the right hepatic vein to the right portal vein. Preston Gonzalez MD ADDENDUM: The following were omitted from the original report. Pressure measurements: Pre-TIPS: Right atrium 2 mmHg Post TIPS: Right atrium 9 mmHg, portal vein 18 mmHg, gradient 9 mmHg. Preston Gonzalez MD Abdomen/Pelvis CT 06/12/17 0000 Signed Impressions: Service Date/Time: Monday, June 12, 2017 19:04 - CONCLUSION: 1. Several areas of wall thickening involving the distal ileum with skip areas consistent with probable Crohn's disease. 2. Moderate amount of ascites throughout the abdomen and pelvis. 3. Right inguinal hernia containing ascites fluid. 4. Hepatosplenomegaly. 5. Nodular liver suggesting cirrhosis. 6. Multiple calcified nonobstructing bilateral renal calculi. 7. Tiny bilateral pleural effusions. García Devine MD Abdomen X-Ray 06/08/17 0600 Signed Impressions: Service Date/Time: May 06:47 - CONCLUSION: Interval improvement of air-filled dilated loops of small bowel compared 06/06/17 with minimal residual air-filled dilatation of a single loop of small bowel within the central abdomen on today's examination. García Devine MD Cyst Biopsy Asp-Paracentesis US 06/07/17 0000 Signed Impressions: Service Date/Time: Wednesday, June 07, 2017 10:40 - CONCLUSION: Uncomplicated ultrasound guided paracentesis. Lalo Zavala Jr., MD Chest X-Ray 06/07/17 0000 Signed Impressions: Service Date/Time: Wednesday, June 07, 2017 02:41 - CONCLUSION: No acute disease. Oc Foster MD Physical Exam HEENT: Normocephalic thin face; atraumatic; no jaundice. CHEST: CTA CARDIAC: RRR ABDOMEN: Mildly distended, soft, nontender, bowel sounds active x 4 EXTREMITIES: No clubbing, cyanosis, mild BLE edema SKIN: Normal; no rash; no jaundice. STATIONS SUPERINTENDENT: No focal deficits; alert and oriented times three. (Dinorah Gillespie) Assessment and Plan Plan ASSESSMENT: - Liver cirrhosis/ascites- S/P TIPS procedure done yesterday. No signs of encephalopathy. Liver US (06/15) --> Patent main portal vein with appropriate hepatopedal flow. Patent TIPS stent. Recorded velocities are unreliable given artifact from very recent insertion. Exam will be repeat in the next 3 days to serve as new baseline. Abdomen US (06/15 ) --> Very small amount of ascites with insufficient pocket for safe paracentesis at this time. Elevated AFP-12 AST-41 ALT-36 Alk phos Iso-liver elevated-73 - Hx Crohn's. CT abd/pelv W/O IV contrast (06/12) --> Several areas of wall thickening involving the distal ileum with skip areas consistent with probably Crohn's disease. Moderate amount of ascites throuhout the abdomen and pelvis. Right inguinal hernia containing ascites fluid. Hepatosplenomegaly. Nodular liver suggesting cirrhosis. Multiple calcified nonobstructing bilateral renal calculi. Tiny bilateral pleural effusions. Pentasa. Solumedrol. CR following - Ascites. Distension improving, abdomen soft. S/P US guided paracentesis with 4,900cc of clear fluid on 06/07/17. Spironolactone, Lasix. - Anemia, normocytic. H/H stable - Depression, Anxiety, Asthma, per attending. PLAN: - [facility] - Cont Pentasa - Cont Solumedrol - Cont Spironolactone - Cont Lasix - Monitor HH - Transfuse as necessary - Supportive care - Follow up with [facility] 1-2 weeks after discharge - Pt seen and examined by and myself and this note is written on his behalf (Dinorah Gillespie) Physician Comments Needs to quit etoh. Change to po prednisone. Fu gi in 1 week upon dc. Needs liver transplant evaluation if possible. Has no insurance so obviously a problem. (Moises Chou MD) Dinorah Gillespie Jun 15, 2017 14:37 Moises Chou MD Jun 15, 2017 15:52
[2017-06-15] MEDS ORDERED: SPIR25 PO (17:00)
[2017-06-15] MEDS ORDERED: OXYC1TAB63 PO (17:00)
[2017-06-15] MEDS ORDERED: PRED20 PO (17:00)
[2017-06-15] MEDS ORDERED: MESA250 PO (17:00)
[2017-06-15] MEDS ORDERED: FURO40TA PO (17:00)
[2017-06-15] MEDS ORDERED: NICO21DI25 T-DERMAL (17:00)
[2017-06-15] MEDS ORDERED: ALPR.5 PO (17:00)
--- NOTE | 2017-06-15 17:01 | HHI.DCPOC ---
Discharge Care Plan Diagnosis: (1) Exacerbation of Crohn's disease (2) Ascites due to alcoholic cirrhosis (3) Tobacco abuse (4) Alcohol abuse (5) Liver disease (6) Abdominal pain (7) Leukocytosis (8) Ascites (9) Hypokalemia (10) UTI (urinary tract infection) Goals to Promote Your Health * To prevent worsening of your condition and complications * To maintain your health at the optimal level Directions to Meet Your Goals Take your medications as prescribed Follow your dietary instruction Follow activity as directed Keep your appointments as scheduled Take your immunizations and boosters as scheduled If your symptoms worsen call your PCP, if no PCP go to Urgent Care Center or Emergency Room Smoking is Dangerous to Your Health. Avoid second hand smoke Call the 24-hour hour crisis hotline for domestic abuse at Billy Escalante MD Jun 15, 2017 17:01
== END 2017-06-15 19:14 | disposition home or self-care (01) | DRG 405 ==
LOC: NEPC 19:45 → NEDA 22:32 → OBSVTOIN 23:27 → N04A 06-07 00:17
PROVIDERS: ADMIT Hospitalist; ATTEND Hospitalist
PROC: 0W9G3ZZ Drainage of Peritoneal Cavity, Percutaneous Approach (ICD-10-PCS; 2017-06-07)
PROC: 30233N1 Transfusion of Nonautologous Red Blood Cells into Peripheral Vein, Percutaneous Approach (ICD-10-PCS; 2017-06-08)
PROC: 0DJD8ZZ Inspection of Lower Intestinal Tract, Via Natural or Artificial Opening Endoscopic (ICD-10-PCS; 2017-06-09)
PROC: 06183J4 Bypass Portal Vein to Hepatic Vein with Synthetic Substitute, Percutaneous Approach (ICD-10-PCS; principal; 2017-06-14)
PROC: B51T1ZZ Fluoroscopy of Portal and Splanchnic Veins using Low Osmolar Contrast (ICD-10-PCS; 2017-06-14)
DX: K70.31 Alcoholic cirrhosis of liver with ascites (principal); K65.2 Spontaneous bacterial peritonitis; K56.600 Partial intestinal obstruction, unspecified as to cause; I95.9 Hypotension, unspecified; K50.10 Crohn's disease of large intestine without complications; N39.0 Urinary tract infection, site not specified; D64.9 Anemia, unspecified; E87.6 Hypokalemia; F17.210 Nicotine dependence, cigarettes, uncomplicated; G89.29 Other chronic pain; F41.9 Anxiety disorder, unspecified; F32.9 Major depressive disorder, single episode, unspecified; K44.9 Diaphragmatic hernia without obstruction or gangrene; F10.10 Alcohol abuse, uncomplicated; J44.9 Chronic obstructive pulmonary disease, unspecified; K21.9 Gastro-esophageal reflux disease without esophagitis; K40.90 Unilateral inguinal hernia, without obstruction or gangrene, not specified as recurrent; K64.4 Residual hemorrhoidal skin tags; N20.0 Calculus of kidney; T38.0X5A Adverse effect of glucocorticoids and synthetic analogues, initial encounter; Z91.14 Patient's other noncompliance with medication regimen; M19.90 Unspecified osteoarthritis, unspecified site; R00.0 Tachycardia, unspecified
CPT/HCPCS: 36430; 37182; 49083; 71010; 74000; 74176; 74177; 76705; 80048; 80053; 80074; 81001; 82105; 82140; 82784; 82977; 83516; 83605; 83690; 83735; 84080; 84100; 85025; 85027; 85610; 85730; 86850; 86900; 86901; 86920; 87040; 87086; 93005; 93975; 94640; 94664; 96361; 96374; 96375; C1725; C1729; C1751; C1757; C1769; C1874; C1887; C1894; C9113; J0696; J2270; J2370; J2405; J2920; J3475; J7030; J7040; J7050; P9016; Q9963; Q9967

== ENCOUNTER 2017-06-22 15:48 | Emergency (ER) | payer OTHER ==
[~2017-06-22] VITALS: Ht 185.4 cm; Wt 52.5 kg
[~2017-06-22 15:48] MED LIST changes: +ALPR.5 PO; -FURO1TAB62 PO; +FURO40TA PO; +NICO21DI25 T-DERMAL; +OXYC1TAB63 PO; -POTA1TAB4 PO; +SPIR25 PO; -TYLETAB34 PO
[2017-06-22 16:01] VITALS: BP 106/54; PULSE 86; RESP 18; TEMP 97.9; O2SAT 98
== END 2017-06-22 16:15 | disposition left against medical advice (07) ==
LOC: PHED 15:48
DX: K50.90 Crohn's disease, unspecified, without complications (principal)
CPT/HCPCS: 99281

== ENCOUNTER 2017-08-24 18:39 | Emergency (ER) | payer OTHER ==
[~2017-08-24] VITALS: Ht 185.4 cm; Wt 59.0 kg
[2017-08-24] MEDS ORDERED: IOHEXOL 350 MG/ML 10 ML VIAL (for RAD DIAG) IVCONTRAST ONE (18:40)
[2017-08-24 18:43] VITALS: BP 108/53; PULSE 103; RESP 16; TEMP 98; O2SAT 99
[2017-08-24] MEDS ORDERED: MORPHINE SULFATE 4 MG/ML INJ IV PUSH ONE (19:30)
[2017-08-24] MEDS ORDERED: SODIUM CHLORIDE 0.9% FLUSH 10 ML FLUSH IV FLUSH PRN (19:30)
[2017-08-24] MEDS ORDERED: SODIUM CHLORID 0.9% 500 ML INJ 500 ML IV ONE (19:30)
--- NOTE | 2017-08-24 20:03 | PD ---
HPI Chief Complaint: GI Complaint Time Seen by Provider: 18:51 Travel History International Travel<30 days: No Contact w/Intl Traveler<30days: No Traveled to known affect area: No History of Present Illness HPI Patient is a 52-year-old male who comes in complaining of abdominal pain. He has a history of Crohn's disease as well as liver cirrhosis, and has been here multiple times for abdominal pain. Most recently, he was admitted in June. He currently has no primary care doctor, but is following with Dr. Lane. However he has not been able to get any of the medications that were prescribed to him. He says he has had pain across his abdomen for the past 2 weeks. He has chronic diarrhea, that has not changed. His occasional nausea, has not been vomiting. He had 1 day of fever a few days ago. He has not taken anything for his symptoms. Nothing seems to improve his symptoms. Severity is mild to moderate. PFSH Past Medical History Hx Anticoagulant Therapy: No Arthritis: Yes Asthma: Yes Blood Disorders: No Anxiety: Yes Depression: Yes Cancer: No Cardiovascular Problems: No High Cholesterol: No Chest Pain: No COPD: Yes Cerebrovascular Accident: No Diabetes: No Diminished Hearing: No Endocrine: No Gastrointestinal Disorders: Yes (CROHNS) GERD: Yes Genitourinary: No Headaches: Yes Hiatal Hernia: Yes Immune Disorder: No Inguinal Hernia: Yes Implanted Vascular Access Dvce: No Musculoskeletal: Yes (BILAT KNEES.) Neurologic: Yes Psychiatric: Yes Reproductive: No Respiratory: Yes Immunizations Current: Yes Migraines: No Pancreatitis: Yes Seizures: No Sleep Apnea: No Thyroid Disease: No Ulcer: No Influenza Vaccination: No Past Surgical History Abdominal Surgery: Yes (COLON RESECTION DUE TO CROHNS) Arteriovenous Shunt: No Cardiac Surgery: No Ear Surgery: No Endocrine Surgery: No Eye Surgery: No Genitourinary Surgery: No Gynecologic Surgery: No Insulin Pump: No Joint Replacement: No Neurologic Surgery: No Oral Surgery: No Pacemaker: No Thoracic Surgery: No Tonsillectomy: Yes Other Surgery: Yes (CROHN'S DISEASE) Social History Alcohol Use: Yes (OCCAS) Tobacco Use: Yes (1 PPD) Substance Use: No Allergies-Medications (Allergen,Severity, Reaction): Coded Allergies: tetanus toxoid, adsorbed (Verified Allergy, Severe, Nausea/Vomiting, ) Reported Meds & Prescriptions Reported Meds & Active Scripts Active Prednisone 20 Mg Tab 30 Mg PO DAILY Pentasa (Mesalamine) 250 Mg Caper 1,000 Mg PO QID Furosemide 40 Mg Tab 40 Mg PO DAILY Xanax (Alprazolam) 0.5 Mg Tab 0.5 Mg PO Q8H PRN Oxycodone-Acetaminophen 5-325 (Oxycodone HCl/Acetaminophen) 5 Mg-325 Mg Tablet 1 Tab PO Q4H PRN Aldactone (Spironolactone) 25 Mg Tab 75 Mg PO DAILY Eq Nicotine (Nicotine) 21 Mg/24 Hour Dis 1 Patch T-DERMAL DAILY Miralax Powder (Polyethylene Glycol 3350 Powder) 17 Gm Powd 17 Gm PO DAILY Mix and dissolve one measuring cap-ful (17 grams) in water or juice. Pantoprazole (Pantoprazole Sodium) 40 Mg Tab 40 Mg PO DAILY Review of Systems Except as stated in HPI: all other systems reviewed are Neg HENT: No: Headaches, Lightheadedness Cardiovascular: No: Chest Pain or Discomfort Respiratory: No: Shortness of Breath Gastrointestinal: Positive: Nausea, Diarrhea, Abdominal Pain Genitourinary: No: Dysuria Musculoskeletal: No: Weakness Skin: No Rash, No Change in Pigmentation Neurologic: No: Weakness, Dizziness Physical Exam Narrative GENERAL: Awake and alert, in no acute distress. SKIN: Focused skin assessment warm/dry. HEAD: Atraumatic. Normocephalic. EYES: Pupils equal and round. No scleral icterus. ENT: Mucous membranes pink and moist. NECK: Trachea midline. No JVD. CARDIOVASCULAR: Regular rate and rhythm. No murmur appreciated. RESPIRATORY: No accessory muscle use. Clear to auscultation. Breath sounds equal bilaterally. GASTROINTESTINAL: Abdomen soft, nondistended. Mild tenderness to the lower abdomen, distractible. MUSCULOSKELETAL: No obvious deformities. No clubbing. No cyanosis. No edema. NEUROLOGICAL: Awake and alert. No obvious cranial nerve deficits. Motor grossly within normal limits. Normal speech. PSYCHIATRIC: Appropriate mood and affect; insight and judgment normal. Data Data Last Documented VS Vital Signs Date Time Temp Pulse Resp B/P (MAP) Pulse Ox O2 Delivery O2 Flow Rate FiO2 08/24/17 21:46 89 16 91/65 (74) 99 Room Air 08/24/17 18:43 98.0 Orders Orders Complete Blood Count With Diff (08/24/17 19:18) Comprehensive Metabolic Panel (08/24/17 19:18) Lipase (08/24/17 19:18) Lactic Acid (08/24/17 19:18) Prothrombin Time / Inr (Pt) (08/24/17:18) Act Partial Throm Time (Ptt) (08/24/17 19:18) Urinalysis - C+S If Indicated (08/24/17 19:18) Ct Abd/Pel W Iv Contrast(Rout) (08/24/17 19:18) Iv Access Insert/Monitor (08/24/17 19:18) Ecg Monitoring (08/24/17 19:18) Oximetry (08/24/17 19:18) Morphine Inj (Morphine Inj) (08/24/17 19:30) Sodium Chloride 0.9% Flush (Ns Flush) (08/24/17 19:30) Sodium Chlorid 0.9% 500 Ml Inj (Ns 500 M (08/24/17 19:30) Urine Culture (08/24/17 20:35) Iohexol 350 Inj (Omnipaque 350 Inj) (08/24/17 18:40) Ceftriaxone Inj (Rocephin Inj) (08/24/17 22:15) Labs Laboratory Tests Test 08/24/17 19:50 08/24/17 20:30 08/24/17 20:35 Prothrombin Time 13.5 SEC Prothromb Time International Ratio 1.3 RATIO Activated Partial Thromboplast Time 23.1 SEC Blood Urea Nitrogen 12 MG/DL Creatinine 1.00 MG/DL Random Glucose 81 MG/DL Total Protein 5.1 GM/DL Albumin 2.0 GM/DL Calcium Level 7.4 MG/DL Alkaline Phosphatase 155 U/L Aspartate Amino Transf (AST/SGOT) 27 U/L Alanine Aminotransferase (ALT/SGPT) 23 U/L Total Bilirubin 0.6 MG/DL Sodium Level 142 MEQ/L Potassium Level 3.5 MEQ/L Chloride Level 117 MEQ/L Carbon Dioxide Level 19.3 MEQ/L Anion Gap 6 MEQ/L Estimat Glomerular Filtration Rate 78 ML/MIN Lactic Acid Level 1.5 mmol/L Protein Corrected Calcium 8.5 MG/DL Lipase 194 U/L White Blood Count 9.7 TH/MM3 Red Blood Count 2.52 MIL/MM3 Hemoglobin 7.6 GM/DL Hematocrit 21.4 % Mean Corpuscular Volume 85.0 FL Mean Corpuscular Hemoglobin 30.1 PG Mean Corpuscular Hemoglobin Concent 35.4 % Red Cell Distribution Width 19.9 % Platelet Count 152 TH/MM3 Mean Platelet Volume 7.9 FL Neutrophils (%) (Auto) 59.4 % Lymphocytes (%) (Auto) 20.5 % Monocytes (%) (Auto) 13.3 % Eosinophils (%) (Auto) 5.4 % Basophils (%) (Auto) 1.4 % Neutrophils # (Auto) 5.8 TH/MM3 Lymphocytes # (Auto) 2.0 TH/MM3 Monocytes # (Auto) 1.3 TH/MM3 Eosinophils # (Auto) 0.5 TH/MM3 Basophils # (Auto) 0.1 TH/MM3 CBC Comment DIFF FINAL Differential Comment Urine Color YELLOW Urine Turbidity CLEAR Urine pH 6.0 Urine Specific [place] 1.021 Urine Protein TRACE mg/dL Urine Glucose (UA) NEG mg/dL Urine Ketones NEG mg/dL Urine Occult Blood LARGE Urine Nitrite NEG Urine Bilirubin NEG Urine Leukocyte Esterase SMALL Urine RBC 25-49 /hpf Urine WBC 9-14 /hpf Urine WBC Clumps FEW Urine Squamous Epithelial Cells 6-8 /hpf Urine Renal Epithelial Cells 0-5 /hpf Urine Hyaline Casts 0-2 /lpf Urine Fine Granular Casts 3-5 /lpf Urine White Blood Cell Casts 3-5 /lpf Urine Mucus FEW /lpf Microscopic Urinalysis Comment CULTURE INDICATED MDM Medical Decision Making Medical Screen Exam Complete: Yes Emergency Medical Condition: Yes Medical Record Reviewed: Yes Differential Diagnosis Crohn's flare versus UTI versus gastroenteritis Narrative Course Patient is a 52-year-old male who comes in complaining of abdominal pain. He has a history of Crohn's disease and liver cirrhosis. He has been here multiple times for similar things. Exam shows mild tenderness to the lower abdomen. IV established, labs sent. Labs are similar to his baseline numbers. Hemoglobin is 7.6, he has been at this level multiple times. He says he has not noticed any blood in his stool recently. Creatinine is 1. CT abdomen pelvis performed shows a renal stone in the right UVJ. Urinalysis is positive for UTI. Patient given pain medicine, IV fluids. Given a dose of Cipro here. He is asking for refill of his medications, specifically his water pill. He will be discharged with prescriptions for pain medicine, Cipro, Lasix. Mandatory referral was placed to GI as well as urology. He is advised to return anytime for any worsening symptoms. He is comfortable with this plan at this time. Last 24 hours Impressions Abdomen/Pelvis CT 08/24/171917 Signed Impressions: Service Date/Time: August 21:26 - CONCLUSION: 1. Mural thickening of distal small bowel. Primary differential diagnosis is inflammatory bowel disease or Crohn's disease. There is a reported history of Crohn's disease. Previous partial resection of the colon. 2. Status post TIPS procedure. 3. 4 mm x 3 mm calculus in the proximal right ureter. Additional nonobstructing calculi in both kidneys. No hydronephrosis. Dung Ellsworth MD Diagnosis Primary Impression: UTI (urinary tract infection) Qualified Codes: N30.00 - Acute cystitis without hematuria Additional Impression: Renal stone Referrals: Josse Castro MD call for appointment Moises Chou MD call for appointment Patient Instructions: General Instructions, Kidney Stones (ED), Urinary Tract Infection in Men (ED) Additional Instructions: Follow-up with urology, follow-up with gastroenterology. Take all of your antibiotic. Take pain medicine as needed. Return to the ED as needed for any worsening symptoms. Scripts Ciprofloxacin (Cipro) 500 Mg Tab 500 MG PO BID for Infection for 10 Days, #20 TAB 0 Refills Prov: Yadira Joiner MD 08/24/17 Oxycodone (Oxycodone) 5 Mg Cap 5 MG PO Q6H Y for PAIN, #10 CAP 0 Refills Prov: Yadira Joiner MD 08/24/17 Furosemide (Lasix) 40 Mg Tab 40 MG PO DAILY, #30 TAB 0 Refills Prov: Yadira Joiner MD 08/24/17 Disposition: 01 DISCHARGE HOME Condition: Stable Yadira Joiner MD Aug 24, 2017 20:03
[2017-08-24 20:25] LABS: BICARBONATE 19.3 MEQ/L (21.0-32.0); CALCIUM 7.4 MG/DL (8.5-10.1)
[2017-08-24 20:27] LABS: INTERNATIONAL NORMALIZED RATIO 1.3 RATIO; PROTHROMBIN TIME - PATIENT 13.5 SEC (9.8-11.6)
[2017-08-24 20:31] LABS: CALCIUM-PROTEIN CORRECTED 8.5 MG/DL (8.5-10.1); TOTAL BILIRUBIN ADULT 0.6 MG/DL (0.2-1.0); TOTAL PROTEIN 5.1 GM/DL (6.4-8.2)
[2017-08-24 20:40] LABS: AUTOMATED NEUTROPHIL # 5.8 TH/MM3 (1.8-7.7); BASOPHIL # 0.1 TH/MM3 (0-0.2); BASOPHIL % 1.4 % (0.0-2.0); EOSINOPHIL # 0.5 TH/MM3 (0-0.4); EOSINOPHIL % 5.4 % (0.0-4.0); HEMATOCRIT 21.4 % (39.0-51.0); HEMOGLOBIN 7.6 GM/DL (13.0-17.0); LYMPH % 20.5 % (9.0-44.0); MEAN CORPUSCULAR HEMOGLOBIN 30.1 PG (27.0-34.0); MEAN CORPUSCULAR HGB CONC 35.4 % (32.0-36.0); MEAN PLATELET VOLUME 7.9 FL (7.0-11.0); MONO % 13.3 % (0.0-8.0); MONOCYTE # 1.3 TH/MM3 (0-0.9); NEUT % 59.4 % (16.0-70.0); PLATELET COUNT 152 TH/MM3 (150-450); RED BLOOD COUNT 2.52 MIL/MM3 (4.50-5.90); RED CELL DISTRIBUTION WIDTH 19.9 % (11.6-17.2); WHITE BLOOD COUNT 9.7 TH/MM3 (4.0-11.0)
[2017-08-24 20:44] LABS: BILIRUBIN, URINE NEG (NEG); BLOOD, URINE LARGE (NEG); GLUCOSE,URINE NEG (NEG); KETONE, URINE NEG (NEG); NITRITE,URINE NEG (NEG); URINE LEUKOCYTE ESTERASE SMALL (NEG)
[2017-08-24 20:51] LABS: URINE COLOR YELLOW (YELLW/STRAW)
[2017-08-24 20:55] LABS: HYALINE CAST, URINE 0-2 /lpf (RARE); MUCUS URINE FEW /lpf (OCC); WHITE BLOOD CELL CLUMPS FEW
[2017-08-24 20:56] LABS: RENAL EPITHELIAL CELLS 0-5 /hpf
[2017-08-24 21:46] VITALS: BP 91/65; PULSE 89; RESP 16; O2SAT 99
--- NOTE | 2017-08-24 21:57 | RADRPT ---
EXAM DATE/TIME: 08/24/2017 21:26 [facility] COMPARISON: No previous studies available for comparison. INDICATIONS : Abdomen pain past month. IV CONTRAST: 95 cc Omnipaque 350 (iohexol) IV ORAL CONTRAST: No oral contrast ingested. RADIATION DOSE: 5.59 CTDIvol (mGy) MEDICAL HISTORY : Chronic obstructive pulmonary disease. Pancreatitis. Gastroesophageal reflux disease.Crohn's SURGICAL HISTORY : Colon resection. ENCOUNTER: Initial ACUITY: 1 month PAIN SCALE: 8/10 LOCATION: Bilateral abdomen TECHNIQUE: Volumetric scanning of the abdomen and pelvis was performed. Using automated exposure control and ad justment of the mA and/or kV according to patient size, radiation dose was kept as low as reasonably achievable to obtain optimal diagnostic quality images. DICOM format image data is available electro nically for review and comparison. FINDINGS: Dependent atelectasis present at the lung bases. There is a stent between the right portal vein and r ight hepatic vein. Spleen, adrenals and pancreas unremarkable. Multiple calculi lower pole right kidn ey measuring up to about 4 mm in diameter. Small calculi upper pole and lower pole left kidney and a 1-3 mm range. There is an approximately 3 mm x 4 mm calculus in the proximal right ureter. No hydrone phrosis. There is some mural thickening in distal small bowel within the right lower quadrant most characteris tic of an Crohn's enteritis or inflammatory bowel disease. Mild constipation. No extraction, free flu id or free air. CONCLUSION: 1. Mural thickening of distal small bowel. Primary differential diagnosis is inflammatory bowel disea se or Crohn's disease. There is a reported history of Crohn's disease. Previous partial resection of the colon. 2. Status post TIPS procedure. 3. 4 mm x 3 mm calculus in the proximal right ureter. Additional nonobstructing calculi in both kidne ys. No hydronephrosis. Dung Ellsworth MD on August 24, 2017 at 21:47 Board Certified Radiologist. This report was verified electronically.
[2017-08-24] MEDS ORDERED: cefTRIAXone INJ 1,000 MG in SODIUM CHLORIDE 0.9% INJ 100 ML IV ONE (22:15)
[2017-08-24] MEDS ORDERED: FURO1TAB60 PO (22:43)
[2017-08-24] MEDS ORDERED: OXYC1CAP PO (22:43)
[2017-08-24] MEDS ORDERED: CIPR-9 PO (22:43)
[2017-08-24 23:18] VITALS: BP 99/66
== END 2017-08-24 23:21 | disposition home or self-care (01) ==
LOC: PHED 18:39
DX: N30.00 Acute cystitis without hematuria (principal); N20.2 Calculus of kidney with calculus of ureter; J44.9 Chronic obstructive pulmonary disease, unspecified; K50.90 Crohn's disease, unspecified, without complications; K74.60 Unspecified cirrhosis of liver; J45.909 Unspecified asthma, uncomplicated; F41.9 Anxiety disorder, unspecified; F32.9 Major depressive disorder, single episode, unspecified; F17.210 Nicotine dependence, cigarettes, uncomplicated; Z90.49 Acquired absence of other specified parts of digestive tract; Z79.899 Other long term (current) drug therapy
CPT/HCPCS: 74177; 80053; 81001; 83605; 83690; 85025; 85610; 85730; 87086; 96361; 96365; 96375; 99284; J0696; J2270; J7040; Q9967

== ENCOUNTER 2017-08-31 09:21 | Emergency (ER) | payer OTHER ==
[~2017-08-31] VITALS: Ht 182.9 cm; Wt 58.7 kg
[~2017-08-31 09:21] MED LIST changes: +CIPR-9 PO; +FURO1TAB60 PO; +OXYC1CAP PO; -OXYC1TAB63 PO; -PRED20 PO
[2017-08-31 09:26] VITALS: BP 93/51; PULSE 88; RESP 16; TEMP 97.5; O2SAT 95
--- NOTE | 2017-08-31 10:11 | PD ---
HPI Chief Complaint: GI Complaint Time Seen by Provider: 10:08 Travel History International Travel<30 days: No Contact w/Intl Traveler<30days: No Traveled to known affect area: No History of Present Illness HPI Patient has two-year chronic history of abdominal pain that radiates towards the back. Today he had another episode which started about 6 hours prior to arrival, RATED 8/10, ASSOC WITH NAUSEA. DENIES ANY ALLEVIATING/AGGRAVATING FACTORS. Patient has allergy to tetanus allegedly Past medical and surgical history significant for COPD sleep apnea GERD pancreatitis colon resection due to Crohn's inguinal hernia hiatal hernia PFSH Past Medical History Hx Anticoagulant Therapy: No Arthritis: Yes Asthma: Yes Blood Disorders: No Anxiety: Yes Depression: Yes Cancer: No Cardiovascular Problems: No High Cholesterol: No Chest Pain: No COPD: Yes Cerebrovascular Accident: No Diabetes: No Diminished Hearing: No Endocrine: No Gastrointestinal Disorders: Yes (CROHNS, gastritis, ascites) GERD: Yes Genitourinary: No Headaches: Yes Hiatal Hernia: Yes Immune Disorder: No Inguinal Hernia: Yes Implanted Vascular Access Dvce: No Musculoskeletal: Yes (BILAT KNEES.) Neurologic: Yes Psychiatric: Yes Reproductive: No Respiratory: Yes Immunizations Current: Yes Migraines: No Pancreatitis: Yes Seizures: No Sleep Apnea: No Thyroid Disease: No Ulcer: No Tetanus Vaccination: > 5 Years Influenza Vaccination: No Past Surgical History Abdominal Surgery: Yes (COLON RESECTION DUE TO CROHNS) Arteriovenous Shunt: No Cardiac Surgery: No Ear Surgery: No Endocrine Surgery: No Eye Surgery: No Genitourinary Surgery: No Gynecologic Surgery: No Insulin Pump: No Joint Replacement: No Neurologic Surgery: No Oral Surgery: No Pacemaker: No Thoracic Surgery: No Tonsillectomy: Yes Other Surgery: Yes (CROHN'S DISEASE) Social History Alcohol Use: No Tobacco Use: Yes (07/11 PPD) Substance Use: No Allergies-Medications (Allergen,Severity, Reaction): Coded Allergies: tetanus toxoid, adsorbed (Verified Allergy, Severe, Nausea/Vomiting, ) Reported Meds & Prescriptions Reported Meds & Active Scripts Active Oxycodone (Oxycodone HCl) 5 Mg Cap 5 Mg PO Q6H PRN Pentasa (Mesalamine) 250 Mg Caper 1,000 Mg PO QID Furosemide 40 Mg Tab 40 Mg PO DAILY Xanax (Alprazolam) 0.5 Mg Tab 0.5 Mg PO Q8H PRN Aldactone (Spironolactone) 25 Mg Tab 75 Mg PO DAILY Eq Nicotine (Nicotine) 21 Mg/24 Hour Dis 1 Patch T-DERMAL DAILY Miralax Powder (Polyethylene Glycol 3350 Powder) 17 Gm Powd 17 Gm PO DAILY Mix and dissolve one measuring cap-ful (17 grams) in water or juice. Pantoprazole (Pantoprazole Sodium) 40 Mg Tab 40 Mg PO DAILY Data Data Last Documented VS Vital Signs Date Time Temp Pulse Resp B/P (MAP) Pulse Ox O2 Delivery O2 Flow Rate FiO2 08/31/17 12:49 74 16 93/54 (67) 96 Room Air 08/31/17 09:26 97.5 Orders Orders Complete Blood Count With Diff (08/31/17 10:08) Comprehensive Metabolic Panel (08/31/17 10:08) Lipase (08/31/17 10:08) Ct Abd/Pel W/O Iv Contrast (08/31/17 10:08) Iv Access Insert/Monitor (08/31/17 10:08) Ecg Monitoring (08/31/17 10:08) Oximetry (08/31/17 10:08) NPO (08/31/17 10:08) Ondansetron Inj (Zofran Inj) (08/31/17 10:15) Sodium Chloride 0.9% Flush (Ns Flush) (08/31/17 10:15) Dicyclomine Inj (Bentyl Inj) (08/31/17 10:15) Morphine Inj (Morphine Inj) (08/31/17 12:15) Ondansetron Inj (Zofran Inj) (08/31/17 12:15) Sodium Chlor 0.9% 1000 Ml Inj (Ns 1000 M (08/31/17 12:09) Labs Laboratory Tests Test 08/31/17 10:25 White Blood Count 11.6 TH/MM3 Red Blood Count 3.26 MIL/MM3 Hemoglobin 9.1 GM/DL Hematocrit 28.0 % Mean Corpuscular Volume 85.8 FL Mean Corpuscular Hemoglobin 27.9 PG Mean Corpuscular Hemoglobin Concent 32.5 % Red Cell Distribution Width 19.2 % Platelet Count 211 TH/MM3 Mean Platelet Volume 7.4 FL Neutrophils (%) (Auto) 67.8 % Lymphocytes (%) (Auto) 15.5 % Monocytes (%) (Auto) 8.8 % Eosinophils (%) (Auto) 3.0 % Basophils (%) (Auto) 4.9 % Neutrophils # (Auto) 7.9 TH/MM3 Lymphocytes # (Auto) 1.8 TH/MM3 Monocytes # (Auto) 1.0 TH/MM3 Eosinophils # (Auto) 0.3 TH/MM3 Basophils # (Auto) 0.6 TH/MM3 CBC Comment AUTO DIFF Differential Comment AUTO DIFF CONFIRMED Blood Urea Nitrogen 10 MG/DL Creatinine 0.61 MG/DL Random Glucose 83 MG/DL Total Protein 5.5 GM/DL Albumin 2.2 GM/DL Calcium Level 7.9 MG/DL Alkaline Phosphatase 227 U/L Aspartate Amino Transf (AST/SGOT) 33 U/L Alanine Aminotransferase (ALT/SGPT) 26 U/L Total Bilirubin 0.8 MG/DL Sodium Level 144 MEQ/L Potassium Level 3.8 MEQ/L Chloride Level 116 MEQ/L Carbon Dioxide Level 22.0 MEQ/L Estimat Glomerular Filtration Rate 139 ML/MIN Lipase 523 U/L [facility] Medical Decision Making Medical Screen Exam Complete: Yes Emergency Medical Condition: Yes Medical Record Reviewed: Yes Differential Diagnosis Hepatitis versus pancreatitis versus colitis versus diverticulitis versus perforated bowel versus kidney stone Narrative Course CONCLUSION of CT scan per radiologist report: 1. Inflammatory process involving the distal small bowel has shown some improvement from the prior study. 2. TIPS with GE junction varicosities and small volume ascites. 3. Bilateral nonobstructing renal calculi as well as a 4 mm stone at the right UPJ. This is unchanged. CBC shows anemia of 9/28 normal platelet count no left shift and patient does have a WBC of 11.6 Electrolytes are all within normal limits, creatinine and GFR within normal limits as well. LFTs are within normal limits as well. Total bilirubin normal. Lipase is slightly elevated at 523 not quite the 2-1/2 times elevation and expected of major pancreatitis however this can be seen with early pancreatitis. The patient will be treated with narcotic pain medication IV fluids and an antiemetic, if the patient tolerates p.o. challenge and his pain is controlled, patient can be managed as an outpatient. Diagnosis Primary Impression: MILD ACUTE ON CHRONIC PANCREATITIS Patient Instructions: Full Liquid Diet (GEN), General Instructions, Pancreatitis (ED) Additional Instructions: you were advised to go on a non alcholic liquid diet for next 48 hours. you have been given prescriptions for pain, nausea. Scripts Tramadol (Ultram) 50 Mg Tab 50 MG PO Q6H Y for PAIN, #20 TAB 0 Refills Prov: Brando Meredith MD 08/31/17 Ondansetron Odt (Zofran Odt) 4 Mg Tab 4 MG SL Q6HR Y for Nausea/Vomiting, #20 TAB 0 Refills Prov: Brando Meredith MD 08/31/17 Disposition: 01 DISCHARGE HOME Condition: Stable Brando Meredith MD Aug 31, 2017 10:11
[2017-08-31] MEDS ORDERED: DICYCLOMINE HCL 20 MG/2 ML VIAL IM ONE (10:15)
[2017-08-31] MEDS ORDERED: SODIUM CHLORIDE 0.9% FLUSH 10 ML FLUSH IV FLUSH PRN (10:15)
[2017-08-31] MEDS ORDERED: ONDANSETRON HCL 4 MG/2 ML VIAL IVP ONE ×2 (10:15→12:15)
[2017-08-31 10:30] LABS: AUTOMATED NEUTROPHIL # 7.9 TH/MM3 (1.8-7.7); BASOPHIL # 0.6 TH/MM3 (0-0.2); BASOPHIL % 4.9 % (0.0-2.0); EOSINOPHIL # 0.3 TH/MM3 (0-0.4); HEMOGLOBIN 9.1 GM/DL (13.0-17.0); LYMPH % 15.5 % (9.0-44.0); LYMPHOCYTE # 1.8 TH/MM3 (1.0-4.8); MEAN CELL VOLUME 85.8 FL (80.0-100.0); MEAN CORPUSCULAR HEMOGLOBIN 27.9 PG (27.0-34.0); MEAN CORPUSCULAR HGB CONC 32.5 % (32.0-36.0); MEAN PLATELET VOLUME 7.4 FL (7.0-11.0); MONO % 8.8 % (0.0-8.0); NEUT % 67.8 % (16.0-70.0); PLATELET COUNT 211 TH/MM3 (150-450); RED BLOOD COUNT 3.26 MIL/MM3 (4.50-5.90); RED CELL DISTRIBUTION WIDTH 19.2 % (11.6-17.2); WHITE BLOOD COUNT 11.6 TH/MM3 (4.0-11.0)
[2017-08-31 10:42] LABS: CHLORIDE 116 MEQ/L (98-107); SODIUM (NA) 144 MEQ/L (136-145)
[2017-08-31 10:46] LABS: ALBUMIN 2.2 GM/DL (3.4-5.0); BLOOD UREA NITROGEN 10 MG/DL (7-18); CALCIUM 7.9 MG/DL (8.5-10.1); GLUCOSE,RANDOM 83 MG/DL (74-106)
[2017-08-31 10:49] LABS: ALT (GPT) 26 U/L (12-78); AST (GOT) 33 U/L (15-37); CREATININE 0.61 MG/DL (0.60-1.30); GLOMERULAR FILTRATION RATE 139 ML/MIN (>89)
[2017-08-31 10:51] LABS: TOTAL BILIRUBIN ADULT 0.8 MG/DL (0.2-1.0); TOTAL PROTEIN 5.5 GM/DL (6.4-8.2)
[2017-08-31 10:52] LABS: ALKALINE PHOSPHATASE 227 U/L (45-117)
[2017-08-31] MEDS ORDERED: SODIUM CHLOR 0.9% 1000 ML INJ 1,000 ML IV SCH (12:09)
--- NOTE | 2017-08-31 12:10 | RADRPT ---
EXAM DATE/TIME: 08/31/2017 11:03 [facility] COMPARISON: CT ABDOMEN & PELVIS W CONTRAST, August 24, 2017, 21:26. CT ABDOMEN & PELVIS W/O CONTRAST, June 12, 2017, 19:04. INDICATIONS : Upper abdominal pain that radiates to back. ORAL CONTRAST: No oral contrast ingested. RADIATION DOSE: 5.97 CTDIvol (mGy) MEDICAL HISTORY : Crohn's disease. Pancreatitis. Gastroesophageal reflux disease.Ascites, gastritis, hiatal hernia, ing uinal hernia, liver disease. SURGICAL HISTORY : Colon resection. ENCOUNTER: Initial ACUITY: 2 days PAIN SCALE: 5/10 LOCATION: Bilateral upper quadrant TECHNIQUE: Volumetric scanning of the abdomen and pelvis was performed. Using automated exposure control and ad justment of the mA and/or kV according to patient size, radiation dose was kept as low as reasonably achievable to obtain optimal diagnostic quality images. DICOM format image data is available electro nically for review and comparison. FINDINGS: LOWER LUNGS: The visualized lower lungs are clear. Minimal right basilar atelectasis. LIVER: There is a TIPS shunt observed. Patency cannot be assessed without the use of IV contrast. The liver is homogeneous in density. No mass or ductal dilatation observed. SPLEEN: Normal size without lesion. PANCREAS: Within normal limits. KIDNEYS: Bilateral nonobstructing renal calculi observed. The largest is on the left measuring 6 mm. There is a stone measuring approximately 4 mm at the right UPJ. There is no hydronephrosis. This is unchanged. The kidneys are otherwise unremarkable on this unenhanced study. ADRENAL GLANDS: Within normal limits. VASCULAR: There is no aortic aneurysm. BOWEL/MESENTERY: Small volume ascites is seen adjacent to the liver. Varicosities noted at the GE junction. The inflam matory change within the distal small bowel has shown some improvement. No free air observed.. ABDOMINAL WALL: Within normal limits. RETROPERITONEUM: There is no lymphadenopathy. BLADDER: No wall thickening or mass. REPRODUCTIVE: Within normal limits. INGUINAL: There is no lymphadenopathy or hernia. MUSCULOSKELETAL: Within normal limits for patient age. CONCLUSION: 1. Inflammatory process involving the distal small bowel has shown some improvement from the prior st udy. 2. TIPS with GE junction varicosities and small volume ascites. 3. Bilateral nonobstructing renal calculi as well as a 4 mm stone at the right UPJ. This is unchanged . Lalo Zavala Jr., MD on August 31, 2017 at 11:37 Board Certified Radiologist. This report was verified electronically.
[2017-08-31] MEDS ORDERED: MORPHINE SULFATE 4 MG/ML INJ IV PUSH ONE (12:15)
[2017-08-31 12:49] VITALS: BP 93/54; PULSE 74; RESP 16; O2SAT 96
[2017-08-31] MEDS ORDERED: TRAM50 PO (13:18)
[2017-08-31] MEDS ORDERED: ZOFR4TAB3 SL (13:18)
[2017-08-31 14:06] VITALS: BP 89/63; PULSE 72; RESP 16; O2SAT 97
[2017-08-31 14:07] VITALS: RESP 16
== END 2017-08-31 14:11 | disposition home or self-care (01) ==
LOC: PHEFT 09:21
DX: K86.1 Other chronic pancreatitis (principal); D64.9 Anemia, unspecified; N20.0 Calculus of kidney; J44.9 Chronic obstructive pulmonary disease, unspecified; K21.9 Gastro-esophageal reflux disease without esophagitis; M19.90 Unspecified osteoarthritis, unspecified site; J45.909 Unspecified asthma, uncomplicated; F41.9 Anxiety disorder, unspecified; F17.200 Nicotine dependence, unspecified, uncomplicated
CPT/HCPCS: 74176; 80053; 83690; 85025; 96361; 96372; 96374; 96375; 96376; 99284; J0500; J2270; J2405; J7030

== ENCOUNTER 2017-09-09 08:47 | Emergency (ER) | payer OTHER ==
[~2017-09-09] VITALS: Ht 182.9 cm; Wt 57.0 kg
[~2017-09-09 08:47] MED LIST changes: -CIPR-9 PO; -FURO1TAB60 PO; +TRAM50 PO; +ZOFR4TAB3 SL
[2017-09-09 08:49] VITALS: BP 106/53; PULSE 98; RESP 16; TEMP 97.8; O2SAT 99
[2017-09-09] MEDS ORDERED: SODIUM CHLOR 0.9% 1000 ML INJ 1,000 ML IV SCH (09:01)
[2017-09-09 09:13] VITALS: O2SAT 97
[2017-09-09 09:15] LABS: AUTOMATED NEUTROPHIL # 10.5 TH/MM3 (1.8-7.7); BASOPHIL # 0.4 TH/MM3 (0-0.2); BASOPHIL % 2.7 % (0.0-2.0); EOSINOPHIL # 0.3 TH/MM3 (0-0.4); EOSINOPHIL % 2.3 % (0.0-4.0); HEMOGLOBIN 8.9 GM/DL (13.0-17.0); LYMPH % 12.6 % (9.0-44.0); LYMPHOCYTE # 1.8 TH/MM3 (1.0-4.8); MEAN CELL VOLUME 85.2 FL (80.0-100.0); MEAN CORPUSCULAR HEMOGLOBIN 29.2 PG (27.0-34.0); MEAN CORPUSCULAR HGB CONC 34.3 % (32.0-36.0); MEAN PLATELET VOLUME 7.1 FL (7.0-11.0); NEUT % 75.4 % (16.0-70.0); PLATELET COUNT 236 TH/MM3 (150-450); RED BLOOD COUNT 3.06 MIL/MM3 (4.50-5.90); RED CELL DISTRIBUTION WIDTH 18.8 % (11.6-17.2)
[2017-09-09] MEDS ORDERED: MORPHINE SULFATE 4 MG/ML INJ IV PUSH ONE (09:15)
[2017-09-09] MEDS ORDERED: SODIUM CHLORIDE 0.9% FLUSH 10 ML FLUSH IV FLUSH PRN (09:15)
[2017-09-09] MEDS ORDERED: ONDANSETRON HCL 4 MG/2 ML VIAL IVP ONE (09:15)
--- NOTE | 2017-09-09 09:44 | PD ---
HPI Chief Complaint: Abdominal Pain Time Seen by Provider: 08:55 Travel History International Travel<30 days: No Contact w/Intl Traveler<30days: No Traveled to known affect area: No History of Present Illness HPI This is a 52-year-old male who presents for abdominal pain. He states that for the last 2 days, he has had pain in the left flank and lower abdomen. 2 days ago, he had a single episode of nausea and nonbilious, nonbloody emesis. He states that he believes this was due to the chili that he had eaten. He denies diarrhea, melena, hematochezia. No urinary urgency, frequency, dysuria, hematuria. He has tried taking pain medication without complete relief. No fever, chills. Symptoms are mild in severity. Crampy in nature. Onset gradual. He has been seen in the emergency department multiple times for similar symptoms. He states that his last drink of alcohol was 2 months ago. He states he has been drinking fluids without difficulty. PFSH Past Medical History Hx Anticoagulant Therapy: No Arthritis: Yes Asthma: Yes Blood Disorders: No Anxiety: Yes Depression: Yes Cancer: No Cardiovascular Problems: No High Cholesterol: No Chest Pain: No COPD: Yes Cerebrovascular Accident: No Diabetes: No Diminished Hearing: No Endocrine: No Gastrointestinal Disorders: Yes (CROHNS, gastritis, ascites) GERD: Yes Genitourinary: No Headaches: Yes Hiatal Hernia: Yes Hypertension: No Immune Disorder: No Inguinal Hernia: Yes Implanted Vascular Access Dvce: No Musculoskeletal: Yes (BILAT KNEES.) Neurologic: Yes Psychiatric: Yes Reproductive: No Respiratory: Yes Immunizations Current: Yes Migraines: No Pancreatitis: Yes Seizures: No Sleep Apnea: No Thyroid Disease: No Ulcer: No Past Surgical History Abdominal Surgery: Yes (COLON RESECTION DUE TO CROHNS) Arteriovenous Shunt: No Cardiac Surgery: No Ear Surgery: No Endocrine Surgery: No Eye Surgery: No Genitourinary Surgery: No Gynecologic Surgery: No Insulin Pump: No Joint Replacement: No Neurologic Surgery: No Oral Surgery: No Pacemaker: No Thoracic Surgery: No Tonsillectomy: Yes Other Surgery: Yes (CROHN'S DISEASE) Social History Alcohol Use: No (states last drink 2 months ago) Tobacco Use: Yes (1/2 PPD) Substance Use: No Allergies-Medications (Allergen,Severity, Reaction): Coded Allergies: tetanus toxoid, adsorbed (Verified Allergy, Severe, Nausea/Vomiting, ) Reported Meds & Prescriptions Reported Meds & Active Scripts Active Ultram (Tramadol HCl) 50 Mg Tab 50 Mg PO Q6H PRN Zofran Odt (Ondansetron Odt) 4 Mg Tab 4 Mg SL Q6HR PRN Oxycodone (Oxycodone HCl) 5 Mg Cap 5 Mg PO Q6H PRN Pentasa (Mesalamine) 250 Mg Caper 1,000 Mg PO QID Furosemide 40 Mg Tab 40 Mg PO DAILY Xanax (Alprazolam) 0.5 Mg Tab 0.5 Mg PO Q8H PRN Aldactone (Spironolactone) 25 Mg Tab 75 Mg PO DAILY Eq Nicotine (Nicotine) 21 Mg/24 Hour Dis 1 Patch T-DERMAL DAILY Miralax Powder (Polyethylene Glycol 3350 Powder) 17 Gm Powd 17 Gm PO DAILY Mix and dissolve one measuring cap-ful (17 grams) in water or juice. Pantoprazole (Pantoprazole Sodium) 40 Mg Tab 40 Mg PO DAILY Review of Systems Except as stated in HPI: all other systems reviewed are Neg Physical Exam Narrative GENERAL: Alert, Chronically ill appearing patient resting on the bed in no acute distress. Vital Signs reviewed SKIN: Focused skin assessment warm/dry. HEAD: Atraumatic. Normocephalic. EYES: Pupils equal and round. No scleral icterus. No injection or drainage. ENT: No nasal bleeding or discharge. Mucous membranes pink and moist. NECK: Trachea midline. No JVD. Spontaneous, painless full range of motion with no meningismus CARDIOVASCULAR: Regular rate and rhythm. No murmur appreciated. Extremities warm and well perfused with bounding peripheral pulses RESPIRATORY: No accessory muscle use. Clear to auscultation. Breath sounds equal bilaterally. Breathing easily and speaking in full sentences GASTROINTESTINAL: Abdomen soft, tender in epigastrium, nondistended. Normal bowel sounds. No rigid, rebound, guarding. Mild left CVA tenderness MUSCULOSKELETAL: No obvious deformities. No clubbing. No cyanosis. No edema. Compartments are soft NEUROLOGICAL: Awake and alert. No obvious cranial nerve deficits. Motor grossly within normal limits. Normal speech. Sensation intact. Normal gait PSYCHIATRIC: Appropriate mood and affect; insight and judgment normal. Data Data Last Documented VS Vital Signs Date Time Temp Pulse Resp B/P (MAP) Pulse Ox O2 Delivery O2 Flow Rate FiO2 09/09/17 09:13 97 Room Air 09/09/17 08:49 97.8 98 16 106/53 (70) Orders Orders Urinalysis - C+S If Indicated (09/09/17 08:49) Complete Blood Count With Diff (09/09/17 09:01) Comprehensive Metabolic Panel (09/09/17 09:01) Lipase (09/09/17 09:01) Iv Access Insert/Monitor (09/09/17 09:01) Ecg Monitoring (09/09/17 09:01) Oximetry (09/09/17 09:01) Morphine Inj (Morphine Inj) (09/09/17 09:15) Ondansetron Inj (Zofran Inj) (09/09/17 09:15) Sodium Chlor 0.9% 1000 Ml Inj (Ns 1000 M (09/09/17 09:01) Sodium Chloride 0.9% Flush (Ns Flush) (09/09/17 09:15) Ct Abd/Pel W Iv Contrast(Rout) (09/09/17 10:05) Iohexol 350 Inj (Omnipaque 350 Inj) (09/09/17 10:45) Sodium Chlorid 0.9% 500 Ml Inj (Ns 500 M (09/09/17 11:00) Ed Discharge Order (09/09/17 11:51) Labs Laboratory Tests Test 09/09/17 09:09 09/09/17 10:44 White Blood Count 14.0 TH/MM3 Red Blood Count 3.06 MIL/MM3 Hemoglobin 8.9 GM/DL Hematocrit 26.0 % Mean Corpuscular Volume 85.2 FL Mean Corpuscular Hemoglobin 29.2 PG Mean Corpuscular Hemoglobin Concent 34.3 % Red Cell Distribution Width 18.8 % Platelet Count 236 TH/MM3 Mean Platelet Volume 7.1 FL Neutrophils (%) (Auto) 75.4 % Lymphocytes (%) (Auto) 12.6 % Monocytes (%) (Auto) 7.0 % Eosinophils (%) (Auto) 2.3 % Basophils (%) (Auto) 2.7 % Neutrophils # (Auto) 10.5 TH/MM3 Lymphocytes # (Auto) 1.8 TH/MM3 Monocytes # (Auto) 1.0 TH/MM3 Eosinophils # (Auto) 0.3 TH/MM3 Basophils # (Auto) 0.4 TH/MM3 CBC Comment DIFF FINAL Differential Comment Blood Urea Nitrogen 11 MG/DL Creatinine 1.30 MG/DL Random Glucose 92 MG/DL Total Protein 5.4 GM/DL Albumin 2.1 GM/DL Calcium Level 7.8 MG/DL Alkaline Phosphatase 275 U/L Aspartate Amino Transf (AST/SGOT) 46 U/L Alanine Aminotransferase (ALT/SGPT) 31 U/L Total Bilirubin 1.3 MG/DL Sodium Level 140 MEQ/L Potassium Level 3.7 MEQ/L Chloride Level 111 MEQ/L Carbon Dioxide Level 19.4 MEQ/L Anion Gap 10 MEQ/L Estimat Glomerular Filtration Rate 58 ML/MIN Lipase 98 U/L Urine Collection Type VOIDED Urine Color YELLOW Urine Turbidity CLEAR Urine pH 6.5 Urine Specific [place] 1.010 Urine Protein NEG mg/dL Urine Glucose (UA) NEG mg/dL Urine Ketones NEG mg/dL Urine Occult Blood MOD Urine Nitrite NEG Urine Bilirubin NEG Urine Urobilinogen 0.2 MG/DL Urine Leukocyte Esterase TRACE Urine RBC 4-9 /hpf Urine WBC 0-2 /hpf Urine Squamous Epithelial Cells 0-2 /hpf Urine Mucus RARE /lpf Microscopic Urinalysis Comment CULT NOT INDICATED MDM Medical Decision Making Medical Screen Exam Complete: Yes Emergency Medical Condition: Yes Medical Record Reviewed: Yes Interpretation(s) Last 24 hours Impressions Abdomen/Pelvis CT 09/09/17 1005 Signed Impressions: Service Date/Time: Monday, September 09, 2017 10:31 - CONCLUSION: 3 mm stone distal left ureter new since 08/24/17 exam causing mild obstruction left kidney. Some residual wall thickening involving the small bowel proximal to the colon. Small amount of free fluid around the liver in the right lower quadrant Gabriel Lara MD Laboratory Tests Test 09/09/17 09:09 09/09/17 10:44 White Blood Count 14.0 TH/MM3 Red Blood Count 3.06 MIL/MM3 Hemoglobin 8.9 GM/DL Hematocrit 26.0 % Mean Corpuscular Volume 85.2 FL Mean Corpuscular Hemoglobin 29.2 PG Mean Corpuscular Hemoglobin Concent 34.3 % Red Cell Distribution Width 18.8 % Platelet Count 236 TH/MM3 Mean Platelet Volume 7.1 FL Neutrophils (%) (Auto) 75.4 % Lymphocytes (%) (Auto) 12.6 % Monocytes (%) (Auto) 7.0 % Eosinophils (%) (Auto) 2.3 % Basophils (%) (Auto) 2.7 % Neutrophils # (Auto) 10.5 TH/MM3 Lymphocytes # (Auto) 1.8 TH/MM3 Monocytes # (Auto) 1.0 TH/MM3 Eosinophils # (Auto) 0.3 TH/MM3 Basophils # (Auto) 0.4 TH/MM3 CBC Comment DIFF FINAL Differential Comment Blood Urea Nitrogen 11 MG/DL Creatinine 1.30 MG/DL Random Glucose 92 MG/DL Total Protein 5.4 GM/DL Albumin 2.1 GM/DL Calcium Level 7.8 MG/DL Alkaline Phosphatase 275 U/L Aspartate Amino Transf (AST/SGOT) 46 U/L Alanine Aminotransferase (ALT/SGPT) 31 U/L Total Bilirubin 1.3 MG/DL Sodium Level 140 MEQ/L Potassium Level 3.7 MEQ/L Chloride Level 111 MEQ/L Carbon Dioxide Level 19.4 MEQ/L Anion Gap 10 MEQ/L Estimat Glomerular Filtration Rate 58 ML/MIN Lipase 98 U/L Urine Collection Type VOIDED Urine Color YELLOW Urine Turbidity CLEAR Urine pH 6.5 Urine Specific [place] 1.010 Urine Protein NEG mg/dL Urine Glucose (UA) NEG mg/dL Urine Ketones NEG mg/dL Urine Occult Blood MOD Urine Nitrite NEG Urine Bilirubin NEG Urine Urobilinogen 0.2 MG/DL Urine Leukocyte Esterase TRACE Urine RBC 4-9 /hpf Urine WBC 0-2 /hpf Urine Squamous Epithelial Cells 0-2 /hpf Urine Mucus RARE /lpf Microscopic Urinalysis Comment CULT NOT INDICATED Differential Diagnosis Gastritis, peptic ulcer disease, pancreatitis, nephrolithiasis, UTI Narrative Course IV access was established. Labs, imaging were performed. Patient was given IV fluid boluses, pain and nausea medication with excellent result. Upon reexamination at 11:40 AM: He is resting comfortably on the bed, texting on his phone and feeling much better. He states that his pain is markedly improved. He is drinking fluids without difficulty. I reviewed the results of the workup with him. Patient has no evidence of infected stone. Plan for discharge with supportive care, continue current home medication and close outpatient follow- up. Patient understands the importance of close outpatient follow-up. He understands he may require further testing and treatment as an outpatient. He understands it is his responsibility to establish and follow through with these appointments. He understands strict return indications. He is comfortable with this plan and eager to go home. Diagnosis Primary Impression: Left ureteral calculus Referrals: Jorge May DO 1 week Primary Care Physician 2 days Patient Instructions: General Instructions, Kidney Stones (DC), Narcotic given in the ED Additional Instructions: Continue current home medication. Drink plenty of water. Stop smoking cigarettes. Follow-up with primary physician in 2 days. Follow-up with urologist. Med/Other Pt SpecificInfo: No Change to Meds Disposition: 01 DISCHARGE HOME Condition: Stable Yu Michaels MD Sep 09, 2017 09:44
[2017-09-09 09:47] LABS: ALBUMIN 2.1 GM/DL (3.4-5.0); BICARBONATE 19.4 MEQ/L (21.0-32.0); CALCIUM 7.8 MG/DL (8.5-10.1); GLUCOSE,RANDOM 92 MG/DL (74-106)
[2017-09-09 09:50] LABS: AST (GOT) 46 U/L (15-37); GLOMERULAR FILTRATION RATE 58 ML/MIN (>89)
[2017-09-09 09:52] LABS: TOTAL BILIRUBIN ADULT 1.3 MG/DL (0.2-1.0); TOTAL PROTEIN 5.4 GM/DL (6.4-8.2)
[2017-09-09 09:53] LABS: ALKALINE PHOSPHATASE 275 U/L (45-117)
[2017-09-09 09:54] LABS: CHLORIDE 111 MEQ/L (98-107); SODIUM (NA) 140 MEQ/L (136-145)
[2017-09-09 09:55] LABS: ALT (GPT) 31 U/L (12-78); BLOOD UREA NITROGEN 11 MG/DL (7-18)
[2017-09-09] MEDS ORDERED: IOHEXOL 350 MG/ML 10 ML VIAL (for RAD DIAG) IVCONTRAST ONE (10:45)
--- NOTE | 2017-09-09 10:52 | RADRPT ---
EXAM DATE/TIME: 09/09/2017 10:31 [facility] COMPARISON: CT ABDOMEN & PELVIS W CONTRAST, August 24, 2017, 21:26. INDICATIONS : Abdominal pain since last night, hx crohns. IV CONTRAST: 75 cc Omnipaque 350 (iohexol) IV ORAL CONTRAST: No oral contrast ingested. RADIATION DOSE: 4.82 CTDIvol (mGy) MEDICAL HISTORY : Chronic obstructive pulmonary disease. Crohns disease. Asthma, depression, Gastritis SURGICAL HISTORY : Colon resection. orthopedic ENCOUNTER: Initial ACUITY: 1 day PAIN SCALE: 10/10 LOCATION: Bilateral abdominal TECHNIQUE: Volumetric scanning of the abdomen and pelvis was performed. Using automated exposure control and ad justment of the mA and/or kV according to patient size, radiation dose was kept as low as reasonably achievable to obtain optimal diagnostic quality images. DICOM format image data is available electro nically for review and comparison. FINDINGS: LOWER LUNGS: Mild atelectasis right lung base LIVER: Homogeneous density without lesion. TIPS catheter in good position There is no dilation of the biliar y tree. No calcified gallstones. Some fluid around the liver SPLEEN: Normal size without lesion. PANCREAS: Within normal limits. KIDNEYS: The left kidney is mild hydronephrosis in the left ureter is mildly prominent although a down to the left UVJ which is a questionable 3 mm stone. Small kidney stones bilaterally ADRENAL GLANDS: Within normal limits. VASCULAR: There is no aortic aneurysm. BOWEL/MESENTERY: Sutures identified in the right midabdomen around the proximal large bowel. The small bowel before th at is diffusely thick walled slightly improved since the 08/24 exam. ABDOMINAL WALL: Within normal limits. RETROPERITONEUM: There is no lymphadenopathy. BLADDER: No wall thickening or mass. REPRODUCTIVE: Within normal limits. INGUINAL: There is no lymphadenopathy or hernia. MUSCULOSKELETAL: Within normal limits for patient age. CONCLUSION: 3 mm stone distal left ureter new since 08/24/17 exam causing mild obstruction left kidney. Some resid ual wall thickening involving the small bowel proximal to the colon. Small amount of free fluid aroun d the liver in the right lower quadrant Gabriel Lara MD on September 09, 2017 at 10:47 Board Certified Radiologist. This report was verified electronically.
[2017-09-09 10:56] LABS: BILIRUBIN, URINE NEG (NEG); BLOOD, URINE MOD (NEG); GLUCOSE,URINE NEG (NEG); KETONE, URINE NEG (NEG); NITRITE,URINE NEG (NEG); PH, URINE 6.5 (5.0-8.5); URINE COLOR YELLOW (YELLW/STRAW); URINE LEUKOCYTE ESTERASE TRACE (NEG)
[2017-09-09] MEDS ORDERED: SODIUM CHLORID 0.9% 500 ML INJ 500 ML IV ONE (11:00)
[2017-09-09 11:11] LABS: WBC, URINE 0-2 /hpf (0-5)
[2017-09-09 11:12] LABS: MUCUS URINE RARE /lpf (OCC); SQUAMOUS EPITHELIAL CELL URINE 0-2 /hpf (0-5)
[2017-09-09 12:02] VITALS: BP 109/65
== END 2017-09-09 12:16 | disposition home or self-care (01) ==
LOC: PHED 08:47
DX: N20.1 Calculus of ureter (principal); K50.90 Crohn's disease, unspecified, without complications; K21.9 Gastro-esophageal reflux disease without esophagitis; M19.90 Unspecified osteoarthritis, unspecified site; F41.9 Anxiety disorder, unspecified; F32.9 Major depressive disorder, single episode, unspecified; J44.9 Chronic obstructive pulmonary disease, unspecified; F17.200 Nicotine dependence, unspecified, uncomplicated
CPT/HCPCS: 74177; 80053; 81001; 83690; 85025; 96361; 96374; 96375; 99284; J2270; J2405; J7030; J7040; Q9967

== ENCOUNTER 2017-09-24 10:12 | Emergency (ER) | payer OTHER ==
[~2017-09-24] VITALS: Ht 182.9 cm; Wt 57.6 kg
[2017-09-24 10:31] VITALS: BP 133/60; PULSE 95; RESP 16; TEMP 98.1; O2SAT 100
[2017-09-24 10:46] LABS: BILIRUBIN, URINE NEG (NEG); BLOOD, URINE NEG (NEG); GLUCOSE,URINE NEG (NEG); KETONE, URINE NEG (NEG); NITRITE,URINE NEG (NEG); URINE COLOR YELLOW (YELLW/STRAW); URINE LEUKOCYTE ESTERASE NEG (NEG)
[2017-09-24 11:00] VITALS: O2SAT 100
[2017-09-24 11:04] LABS: SQUAMOUS EPITHELIAL CELL URINE 0-2 /hpf (0-5); WBC, URINE 0-2 /hpf (0-5)
[2017-09-24] MEDS ORDERED: ALDA50TA2 PO (11:05)
[2017-09-24] MEDS ORDERED: ALPR.5 PO (11:05)
[2017-09-24] MEDS ORDERED: SODIUM CHLOR 0.9% 1000 ML INJ 1,000 ML IV SCH (11:08)
[2017-09-24] MEDS ORDERED: ONDANSETRON HCL 4 MG/2 ML VIAL IVP ONE (11:15)
[2017-09-24] MEDS ORDERED: FAMOTIDINE 20 MG/2 ML VIAL IV PUSH ONE (11:15)
[2017-09-24] MEDS ORDERED: KETOROLAC TROMETHAMINE 30 MG/ML (IVP) VIAL IVP ONE (11:15)
[2017-09-24] MEDS ORDERED: SODIUM CHLORIDE 0.9% FLUSH 10 ML FLUSH IV FLUSH PRN (11:15)
--- NOTE | 2017-09-24 11:16 | PD ---
HPI Chief Complaint: Abdominal Pain Time Seen by Provider: 11:00 Travel History International Travel<30 days: No Contact w/Intl Traveler<30days: No Traveled to known affect area: No History of Present Illness HPI 52-year-old male complains of abdominal pain with nausea. Patient states that the symptoms started 4 days ago. Patient state of pain and cramping pain is sharp pain localized around epigastric and mid abdomen. Patient denies any pain radiation. Patient states that he has nausea with no vomiting diarrhea. Patient denies any dysuria frequency. Patient was seen in emergency room 15 days ago. Patient had blood tests and CT scan abdomen pelvis done which shows 3 mm stone distal left ureter. Patient states that the pain got better and then get worse again for the past 3 4 days. Patient denies any fever chills. Patient has history of recurrent abdominal pain. Patient has history of Crohn' s disease status post partial colon resection. Patient also has history of hiatal hernia, anxiety, asthma, arthritis, GERD, pancreatitis. PFSH Past Medical History Hx Anticoagulant Therapy: No Arthritis: Yes Asthma: Yes Blood Disorders: No Anxiety: Yes Depression: Yes Cancer: No Cardiovascular Problems: No High Cholesterol: No Chest Pain: No COPD: Yes Cerebrovascular Accident: No Diabetes: No Diminished Hearing: No Endocrine: No Gastrointestinal Disorders: Yes (CROHNS, gastritis, ascites) GERD: Yes Genitourinary: No Headaches: Yes Hiatal Hernia: Yes Hypertension: No Immune Disorder: No Inguinal Hernia: Yes Implanted Vascular Access Dvce: No Musculoskeletal: Yes (BILAT KNEES.) Neurologic: Yes Psychiatric: Yes Reproductive: No Respiratory: Yes Immunizations Current: Yes Migraines: No Pancreatitis: Yes Seizures: No Sleep Apnea: No Thyroid Disease: No Ulcer: No Tetanus Vaccination: Unknown Influenza Vaccination: No Past Surgical History Abdominal Surgery: Yes (COLON RESECTION DUE TO CROHNS) Arteriovenous Shunt: No Cardiac Surgery: No Ear Surgery: No Endocrine Surgery: No Eye Surgery: No Genitourinary Surgery: No Gynecologic Surgery: No Insulin Pump: No Joint Replacement: No Neurologic Surgery: No Oral Surgery: No Pacemaker: No Thoracic Surgery: No Tonsillectomy: Yes Other Surgery: Yes (CROHN'S DISEASE) Social History Alcohol Use: No (states last drink 2 months ago) Tobacco Use: Yes (1/2 PPD) Substance Use: No Allergies-Medications (Allergen,Severity, Reaction): Coded Allergies: tetanus toxoid, adsorbed (Verified Allergy, Severe, Nausea/Vomiting, ) Reported Meds & Prescriptions Reported Meds & Active Scripts Active Zofran Odt (Ondansetron Odt) 4 Mg Tab 4 Mg SL Q6HR PRN Oxycodone (Oxycodone HCl) 5 Mg Cap 5 Mg PO Q6H PRN Furosemide 40 Mg Tab 40 Mg PO DAILY Pantoprazole (Pantoprazole Sodium) 40 Mg Tab 40 Mg PO DAILY Reported Aldactone (Spironolactone) 50 Mg Tab 50 Mg PO DAILY Xanax (Alprazolam) 0.5 Mg Tab 0.5 Mg PO DAILY PRN Review of Systems General / Constitutional: No: Fever Eyes: No: Visual changes HENT: No: Headaches Cardiovascular: No: Chest Pain or Discomfort Respiratory: No: Shortness of Breath Gastrointestinal: Positive: Nausea, Abdominal Pain Genitourinary: No: Dysuria Musculoskeletal: No: Pain Skin: No Rash Neurologic: No: Weakness Psychiatric: No: Depression Endocrine: No: Polydipsia Hematologic/Lymphatic: No: Easy Bruising Physical Exam Narrative GENERAL: Well-nourished, well-developed patient. SKIN: Focused skin assessment warm/dry. HEAD: Normocephalic. EYES: No scleral icterus. No injection or drainage. NECK: Supple, trachea midline. No JVD or lymphadenopathy. CARDIOVASCULAR: Regular rate and rhythm without murmurs, gallops, or rubs. RESPIRATORY: Breath sounds equal bilaterally. No accessory muscle use. GASTROINTESTINAL: Abdomen soft, nondistended. Patient has mild to moderate tenderness to palpation epigastric and mid abdomen area. No rebound tenderness. No mass. MUSCULOSKELETAL: No cyanosis, or edema. BACK: Nontender without obvious deformity. No CVA tenderness. Neurologic exam normal. Data Data Last Documented VS Vital Signs Date Time Temp Pulse Resp B/P (MAP) Pulse Ox O2 Delivery O2 Flow Rate FiO2 09/24/17 12:05 73 18 110/65 (80) 100 Room Air 09/24/17 10:31 98.1 Orders Orders Urinalysis - C+S If Indicated (09/24/17 10:14) Complete Blood Count With Diff (09/24/17 11:08) Comprehensive Metabolic Panel (09/24/17 11:08) Lipase (09/24/17 11:08) Prothrombin Time / Inr (Pt) (09/24/17 11:08) Act Partial Throm Time (Ptt) (09/24/17 11:08) Ct Abd/Pel W/O Iv Contrast (09/24/17 11:08) Iv Access Insert/Monitor (09/24/17 11:08) Ecg Monitoring (09/24/17 11:08) Oximetry (09/24/17 11:08) Ondansetron Inj (Zofran Inj) (09/24/17 11:15) Sodium Chlor 0.9% 1000 Ml Inj (Ns 1000 M (09/24/17 11:08) Sodium Chloride 0.9% Flush (Ns Flush) (09/24/17 11:15) Famotidine Inj (Pepcid Inj) (09/24/17 11:15) Ketorolac Inj (Toradol Inj) (09/24/17 11:15) Methylprednisolone So Succ Inj (Solumedr (09/24/17 12:45) Mesalamine Sr (Pentasa Sr) (09/24/17 12:45) Labs Laboratory Tests Test 09/24/17 10:35 09/24/17 11:30 Urine Collection Type VOIDED Urine Color YELLOW Urine Turbidity CLEAR Urine pH 7.0 Urine Specific [place] 1.015 Urine Protein NEG mg/dL Urine Glucose (UA) NEG mg/dL Urine Ketones NEG mg/dL Urine Occult Blood NEG Urine Nitrite NEG Urine Bilirubin NEG Urine Urobilinogen 0.2 MG/DL Urine Leukocyte Esterase NEG Urine WBC 0-2 /hpf Urine Squamous Epithelial Cells 0-2 /hpf Microscopic Urinalysis Comment CULT NOT INDICATED White Blood Count 10.8 TH/MM3 Red Blood Count 3.04 MIL/MM3 Hemoglobin 8.6 GM/DL Hematocrit 26.3 % Mean Corpuscular Volume 86.3 FL Mean Corpuscular Hemoglobin 28.1 PG Mean Corpuscular Hemoglobin Concent 32.6 % Red Cell Distribution Width 16.2 % Platelet Count 219 TH/MM3 Mean Platelet Volume 7.4 FL Neutrophils (%) (Auto) 75.7 % Lymphocytes (%) (Auto) 14.1 % Monocytes (%) (Auto) 6.7 % Eosinophils (%) (Auto) 2.9 % Basophils (%) (Auto) 0.6 % Neutrophils # (Auto) 8.2 TH/MM3 Lymphocytes # (Auto) 1.5 TH/MM3 Monocytes # (Auto) 0.7 TH/MM3 Eosinophils # (Auto) 0.3 TH/MM3 Basophils # (Auto) 0.1 TH/MM3 CBC Comment DIFF FINAL Differential Comment Prothrombin Time 14.5 SEC Prothromb Time International Ratio 1.4 RATIO Activated Partial Thromboplast Time 28.4 SEC Blood Urea Nitrogen 10 MG/DL Creatinine 0.68 MG/DL Random Glucose 83 MG/DL Total Protein 5.3 GM/DL Albumin 2.1 GM/DL Calcium Level 7.6 MG/DL Alkaline Phosphatase 183 U/L Aspartate Amino Transf (AST/SGOT) 46 U/L Alanine Aminotransferase (ALT/SGPT) 29 U/L Total Bilirubin 0.9 MG/DL Sodium Level 145 MEQ/L Potassium Level 3.9 MEQ/L Chloride Level 118 MEQ/L Carbon Dioxide Level 19.0 MEQ/L Anion Gap 8 MEQ/L Estimat Glomerular Filtration Rate 122 ML/MIN Lipase 380 U/L MDM Medical Decision Making Medical Screen Exam Complete: Yes Emergency Medical Condition: Yes Interpretation(s) 12:06 PM. CBC with hemoglobin 8.6 hematocrit 26.3. WBC 10.8. 75 neutrophil. Bicarb 19. AST 46. Alkaline phosphatase 183. INR 1.4. UA is negative. 12:[address] scan abdomen and pelvis shows worsening wall thickness within the cecum, terminal ileum and rectosigmoid colon. Diffuse mesenteric adenopathy. Differential Diagnosis Differential diagnoses including gastritis, PUD, pancreatitis, colitis, UTI, pyelonephritis, nephrolithiasis. Narrative Course 52-year-old male with abdominal pain. History of Crohn's disease status post colon resection. History of kidney stone. Normal saline solution 125 cc an hour. Toradol 30 mg IV. Pepcid 20 mg IV. Zofran 4 mg IV. Diagnosis Primary Impression: Abdominal pain Qualified Codes: R10.10 - Upper abdominal pain, unspecified Additional Impression: Exacerbation of Crohn's disease Qualified Codes: K50.90 - Crohn's disease, unspecified, without complications Patient Instructions: General Instructions Additional Instructions: Take Pentasa and Medrol Dosepak as directed. Follow-up with personal physician. Return if worse. Med/Other Pt SpecificInfo: Prescription(s) given Scripts Methylprednisolone Dosepak (Medrol Dosepak) 4 Mg Dspk 4 MG PO DIRECTED, #1 DSPK 0 Refills Per Pharmacist direction Prov: Jeremy,Hung MD 09/24/17 Mesalamine ER (Pentasa) 500 Mg Caper 1000 MG PO QID for Ulcerative Colitis, #120 CAP 0 Refills Prov: Kevin Luna MD 09/24/17 Disposition: 01 DISCHARGE HOME Condition: Stable Kevin Luna MD Sep 24, 2017 11:16
[2017-09-24 11:37] LABS: AUTOMATED NEUTROPHIL # 8.2 TH/MM3 (1.8-7.7); BASOPHIL # 0.1 TH/MM3 (0-0.2); BASOPHIL % 0.6 % (0.0-2.0); EOSINOPHIL # 0.3 TH/MM3 (0-0.4); EOSINOPHIL % 2.9 % (0.0-4.0); HEMATOCRIT 26.3 % (39.0-51.0); HEMOGLOBIN 8.6 GM/DL (13.0-17.0); LYMPH % 14.1 % (9.0-44.0); LYMPHOCYTE # 1.5 TH/MM3 (1.0-4.8); MEAN CELL VOLUME 86.3 FL (80.0-100.0); MEAN CORPUSCULAR HEMOGLOBIN 28.1 PG (27.0-34.0); MEAN CORPUSCULAR HGB CONC 32.6 % (32.0-36.0); MEAN PLATELET VOLUME 7.4 FL (7.0-11.0); MONO % 6.7 % (0.0-8.0); MONOCYTE # 0.7 TH/MM3 (0-0.9); NEUT % 75.7 % (16.0-70.0); PLATELET COUNT 219 TH/MM3 (150-450); RED BLOOD COUNT 3.04 MIL/MM3 (4.50-5.90); RED CELL DISTRIBUTION WIDTH 16.2 % (11.6-17.2); WHITE BLOOD COUNT 10.8 TH/MM3 (4.0-11.0)
[2017-09-24 11:49] LABS: CHLORIDE 118 MEQ/L (98-107); SODIUM (NA) 145 MEQ/L (136-145)
[2017-09-24 11:53] LABS: CALCIUM 7.6 MG/DL (8.5-10.1); INTERNATIONAL NORMALIZED RATIO 1.4 RATIO; PROTHROMBIN TIME - PATIENT 14.5 SEC (9.8-11.6)
[2017-09-24 11:54] LABS: ALBUMIN 2.1 GM/DL (3.4-5.0); BLOOD UREA NITROGEN 10 MG/DL (7-18); GLUCOSE,RANDOM 83 MG/DL (74-106)
[2017-09-24 11:57] LABS: ALT (GPT) 29 U/L (12-78); AST (GOT) 46 U/L (15-37); CREATININE 0.68 MG/DL (0.60-1.30); GLOMERULAR FILTRATION RATE 122 ML/MIN (>89)
[2017-09-24 11:58] LABS: TOTAL BILIRUBIN ADULT 0.9 MG/DL (0.2-1.0); TOTAL PROTEIN 5.3 GM/DL (6.4-8.2)
[2017-09-24 12:00] LABS: ALKALINE PHOSPHATASE 183 U/L (45-117)
[2017-09-24 12:05] VITALS: BP 110/65; PULSE 73; RESP 18; O2SAT 100
--- NOTE | 2017-09-24 12:15 | RADRPT ---
EXAM DATE/TIME: 09/24/2017 11:46 [facility] COMPARISON: CT ABDOMEN & PELVIS W/O CONTRAST, August 31, 2017, 11:03. INDICATIONS : Diffuse abdominal pain and nausea. Recently diagnosed with kidney stones. ORAL CONTRAST: No oral contrast ingested. RADIATION DOSE: 6.45 CTDIvol (mGy) MEDICAL HISTORY : Chronic obstructive pulmonary disease. Crohns disease. Renal calculi.Gastritis. SURGICAL HISTORY : Colon resection. TIPS catheter. ENCOUNTER: Initial ACUITY: 4 - 6 days PAIN SCALE: 9/10 LOCATION: pelvis abdomen TECHNIQUE: Volumetric scanning of the abdomen and pelvis was performed. Using automated exposure control and ad justment of the mA and/or kV according to patient size, radiation dose was kept as low as reasonably achievable to obtain optimal diagnostic quality images. DICOM format image data is available electro nically for review and comparison. FINDINGS: LOWER LUNGS: The visualized lower lungs are clear. LIVER: Homogeneous low-attenuation. Small cardiomegaly. TIPS catheter is noted. A small amount of free fluid identified adjacent to the right lobe liver. Gallstones identified within the decompressed gallbladd er. Stable varices. SPLEEN: Mild splenomegaly. PANCREAS: Within normal limits. KIDNEYS: Bilateral nonobstructing renal stones. The stones on left are poorly visualized on this exam which ma y reflect interval passage of left sided stones. The stone on the right is stable. No evidence of hyd ronephrosis or abnormal dilation of the ureter. ADRENAL GLANDS: Within normal limits. VASCULAR: There is no aortic aneurysm. BOWEL/MESENTERY: There is abnormal wall thickening identified within the cecum and terminal ileum. Diffuse adenopathy is identified throughout the mesentery.. There is suggestion of wall thickening identified within the sigmoid colon. ABDOMINAL WALL: Within normal limits. RETROPERITONEUM: Diffuse lymphadenopathy identified throughout the mesentery. BLADDER: No wall thickening or mass. REPRODUCTIVE: Within normal limits. INGUINAL: There is no lymphadenopathy or hernia. MUSCULOSKELETAL: Within normal limits for patient age. CONCLUSION: Abnormal exam with worsening wall thickness identified within the cecum, terminal ileum and rectosigm oid colon. Diffuse adenopathy seen throughout the mesentery may be reactive. These findings are melvina tible with the patient's history of Crohn's disease. There are bilateral renal stones with the left r enal stones less visible on the current exam which may reflect interval passage. Stable appearance of hepatosplenomegaly with a TIPS catheter in place.. Britt Georges MD on September 24, 2017 at 12:04 Board Certified Radiologist. This report was verified electronically.
[2017-09-24] MEDS ORDERED: MEDR4PAK PO (12:45)
[2017-09-24] MEDS ORDERED: MESALAMINE 250 MG CAP PO ONE (12:45)
[2017-09-24] MEDS ORDERED: methylPREDNISolone SOD SUCC 125 MG/2 ML VIAL IV PUSH ONE (12:45)
[2017-09-24] MEDS ORDERED: PENT500C2 PO (12:45)
[2017-09-24 13:12] VITALS: BP 95/58; PULSE 83; RESP 20; O2SAT 100
[2017-09-24] MEDS ORDERED: traMADol HCL 50 MG TAB PO ONE (13:15)
[2017-09-24 13:50] VITALS: BP 110/65
== END 2017-09-24 13:55 | disposition home or self-care (01) ==
LOC: PHED 10:12
DX: R10.10 Upper abdominal pain, unspecified (principal); K50.90 Crohn's disease, unspecified, without complications; J44.9 Chronic obstructive pulmonary disease, unspecified; R11.0 Nausea; K85.90 Acute pancreatitis without necrosis or infection, unspecified; Z72.0 Tobacco use
CPT/HCPCS: 74176; 80053; 81001; 83690; 85025; 85610; 85730; 96361; 96374; 96375; 99285; J1885; J2405; J2930; J7030

== ENCOUNTER 2017-10-15 16:50 | Inpatient (IN) | payer OTHER ==
[~2017-10-15] VITALS: Ht 182.9 cm; Wt 56.7 kg
[2017-10-15] VITALS (7 sets, daily range): BP systolic 99–117; BP diastolic 57–67; PULSE 84–107; RESP 18; TEMP 98.6; O2SAT 98–100
[~2017-10-15 16:50] MED LIST changes: +ALDA50TA2 PO; +MEDR4PAK PO; -MESA250 PO; -MIRA3350 PO; -NICO21DI25 T-DERMAL; +PENT500C2 PO; -SPIR25 PO; -TRAM50 PO
[2017-10-15] MEDS ORDERED: ALBUAER3 INH (18:16)
[2017-10-15] MEDS ORDERED: SODIUM CHLOR 0.9% 1000 ML INJ 1,000 ML IV SCH (18:38)
[2017-10-15] MEDS ORDERED: SODIUM CHLORIDE 0.9% FLUSH 10 ML FLUSH IV FLUSH PRN (18:45)
--- NOTE | 2017-10-15 18:45 | PD ---
HPI Chief Complaint: Abdominal Pain Time Seen by Provider: 18:29 Travel History International Travel<30 days: No Contact w/Intl Traveler<30days: No Traveled to known affect area: No History of Present Illness HPI Patient is a 52-year-old male with history of Crohn's disease, presents the emergency room with complaints of abdominal pain. Patient reports that he has been having abdominal pain for the past 2 years, patient reports that his pain is worse over the past 2 weeks. Patient does follow with Dr. Lane who performed his colon surgery when he was in his 20's. Patient reports increased lower abdominal pain which radiates up his abdomen for the past 2 weeks. Reports that he follow-up with Dr. Lane 3 days ago and was told to go for a CT of his abdomen and pelvis. Patient reports that he is here for CT of abdomen and pelvis. Patient denies any fevers or chills, patient denies any constipation or diarrhea. Patient with no other complaints at this time. Patient endorses that he has been tolerating oral diet for the past 2 weeks. PFSH Past Medical History Hx Anticoagulant Therapy: No Arthritis: Yes Asthma: Yes Blood Disorders: No Anxiety: Yes Depression: Yes Cancer: No Cardiovascular Problems: No High Cholesterol: No Chest Pain: No COPD: Yes Cerebrovascular Accident: No Diabetes: No Diminished Hearing: No Endocrine: No Gastrointestinal Disorders: Yes (CROHNS, gastritis, ascites) GERD: Yes Genitourinary: No Headaches: Yes Hiatal Hernia: Yes Hypertension: No Immune Disorder: No Inguinal Hernia: Yes Implanted Vascular Access Dvce: No Musculoskeletal: Yes (BILAT KNEES.) Neurologic: Yes Psychiatric: Yes Reproductive: No Respiratory: Yes Immunizations Current: Yes Migraines: No Pancreatitis: Yes Seizures: No Sleep Apnea: No Thyroid Disease: No Ulcer: No Tetanus Vaccination: Unknown Influenza Vaccination: No Past Surgical History Abdominal Surgery: Yes (COLON RESECTION DUE TO CROHNS) Arteriovenous Shunt: No Cardiac Surgery: No Ear Surgery: No Endocrine Surgery: No Eye Surgery: No Genitourinary Surgery: No Gynecologic Surgery: No Insulin Pump: No Joint Replacement: No Neurologic Surgery: No Oral Surgery: No Pacemaker: No Thoracic Surgery: No Tonsillectomy: Yes Other Surgery: Yes (CROHN'S DISEASE) Social History Alcohol Use: Yes (TWICE A WEEK) Tobacco Use: Yes (1/2 PPD) Substance Use: No Allergies-Medications (Allergen,Severity, Reaction): Coded Allergies: tetanus toxoid, adsorbed (Verified Allergy, Severe, Nausea/Vomiting, ) Reported Meds & Prescriptions Reported Meds & Active Scripts Active Medrol Dosepak (Methylprednisolone) 4 Mg Dspk 4 Mg PO DIRECTED Per Pharmacist direction Pentasa (Mesalamine) 500 Mg Caper 1,000 Mg PO QID Furosemide 40 Mg Tab 40 Mg PO DAILY Pantoprazole (Pantoprazole Sodium) 40 Mg Tab 40 Mg PO DAILY Reported Proair Hfa 8.5 GM Inh (Albuterol Sulfate) 90 Mcg/Act Aer 2 Puff INH Q6H PRN 108 mcg/actuation Aldactone (Spironolactone) 50 Mg Tab 50 Mg PO DAILY Xanax (Alprazolam) 0.5 Mg Tab 0.5 Mg PO DAILY PRN Review of Systems General / Constitutional: No: Fever Eyes: No: Visual changes HENT: No: Headaches Cardiovascular: No: Chest Pain or Discomfort Respiratory: No: Shortness of Breath Gastrointestinal: Positive: Abdominal Pain Genitourinary: No: Dysuria Musculoskeletal: No: Pain Skin: No Rash Neurologic: No: Weakness Psychiatric: No: Depression Endocrine: No: Polydipsia Hematologic/Lymphatic: No: Easy Bruising Physical Exam Narrative GENERAL: NAD SKIN: Focused skin assessment warm/dry. HEAD: Atraumatic. Normocephalic. EYES: Pupils equal and round. No scleral icterus. No injection or drainage. ENT: No nasal bleeding or discharge. Mucous membranes pink and moist. NECK: Trachea midline. No JVD. CARDIOVASCULAR: Regular rate and rhythm. No murmur appreciated. RESPIRATORY: No accessory muscle use. Clear to auscultation. Breath sounds equal bilaterally. GASTROINTESTINAL: Abdomen soft, mildly tender to lower abdomen with no rebound or guarding on exam, nondistended. Hepatic and splenic margins not palpable. MUSCULOSKELETAL: No obvious deformities. No clubbing. No cyanosis. No edema. NEUROLOGICAL: Awake and alert. No obvious cranial nerve deficits. Motor grossly within normal limits. Normal speech. PSYCHIATRIC: Appropriate mood and affect; insight and judgment normal. Data Data Last Documented VS Vital Signs Date Time Temp Pulse Resp B/P (MAP) Pulse Ox O2 Delivery O2 Flow Rate FiO2 10/15/17 16:54 98.6 107 18 117/57 (77) 99 Orders Orders Complete Blood Count With Diff (10/15/17 18:38) Comprehensive Metabolic Panel (10/15/17 18:38) Lipase (10/15/17 18:38) Prothrombin Time / Inr (Pt) (10/15/17 18:38) Act Partial Throm Time (Ptt) (10/15/17 18:38) Urinalysis - C+S If Indicated (10/15/17 18:38) Ct Abd/Pel W Iv Contrast(Rout) (10/15/17 18:38) Iv Access Insert/Monitor (10/15/17 18:38) Ecg Monitoring (10/15/17 18:38) Oximetry (10/15/17 18:38) NPO (10/15/17 18:38) Sodium Chlor 0.9% 1000 Ml Inj (Ns 1000 M (10/15/17 18:38) Sodium Chloride 0.9% Flush (Ns Flush) (10/15/17 18:45) MDM Medical Decision Making Medical Screen Exam Complete: Yes Emergency Medical Condition: Yes Medical Record Reviewed: Yes Interpretation(s) Vital Signs Date Time Temp Pulse Resp B/P (MAP) Pulse Ox O2 Delivery O2 Flow Rate FiO2 10/15/17 16:54 98.6 107 18 117/57 (77) 99 Differential Diagnosis Crohn's exacerbation, small bowel obstruction, diverticulitis, electrolyte abnormality, UTI Narrative Course Patient is a 52-year-old male who presents to emergency room with complaints of acute on chronic lower abdominal pain. Lab work including CT abdomen pelvis ordered. Patient signed out to care of Dr. Pastrana at change of shift Cat Akins DO Oct 15, 2017 18:45
[2017-10-15 19:47] LABS: AUTOMATED NEUTROPHIL # 6.6 TH/MM3 (1.8-7.7); BASOPHIL # 0.1 TH/MM3 (0-0.2); EOSINOPHIL # 0.3 TH/MM3 (0-0.4); EOSINOPHIL % 3.2 % (0.0-4.0); HEMATOCRIT 21.9 % (39.0-51.0); HEMOGLOBIN 7.3 GM/DL (13.0-17.0); LYMPH % 16.2 % (9.0-44.0); LYMPHOCYTE # 1.6 TH/MM3 (1.0-4.8); MEAN CELL VOLUME 88.4 FL (80.0-100.0); MEAN CORPUSCULAR HEMOGLOBIN 29.6 PG (27.0-34.0); MEAN CORPUSCULAR HGB CONC 33.5 % (32.0-36.0); MEAN PLATELET VOLUME 7.3 FL (7.0-11.0); MONO % 9.9 % (0.0-8.0); NEUT % 69.7 % (16.0-70.0); PLATELET COUNT 169 TH/MM3 (150-450); RED BLOOD COUNT 2.47 MIL/MM3 (4.50-5.90); RED CELL DISTRIBUTION WIDTH 15.5 % (11.6-17.2); WHITE BLOOD COUNT 9.6 TH/MM3 (4.0-11.0)
[2017-10-15 19:51] LABS: BILIRUBIN, URINE NEG (NEG); BLOOD, URINE SMALL (NEG); GLUCOSE,URINE NEG (NEG); KETONE, URINE NEG (NEG); NITRITE,URINE NEG (NEG); URINE COLOR YELLOW (YELLW/STRAW); URINE LEUKOCYTE ESTERASE NEG (NEG)
[2017-10-15 19:55] LABS: CHLORIDE 114 MEQ/L (98-107); SODIUM (NA) 141 MEQ/L (136-145)
[2017-10-15 19:58] LABS: CALCIUM 7.7 MG/DL (8.5-10.1)
[2017-10-15 19:58] LABS: MUCUS URINE FEW /lpf (OCC); RBC, URINE 0-3 /hpf (0-3); SQUAMOUS EPITHELIAL CELL URINE 0-5 /hpf (0-5); WBC, URINE 0-2 /hpf (0-5)
[2017-10-15 19:59] LABS: ALBUMIN 1.9 GM/DL (3.4-5.0); BICARBONATE 20.2 MEQ/L (21.0-32.0); BLOOD UREA NITROGEN 7 MG/DL (7-18); GLUCOSE,RANDOM 85 MG/DL (74-106)
[2017-10-15 19:59] LABS: BACTERIA, URINE OCC /hpf; CALCIUM OXALATE CRYSTALS,URINE MANY /hpf
[2017-10-15 20:00] LABS: INTERNATIONAL NORMALIZED RATIO 1.4 RATIO
[2017-10-15 20:01] LABS: ALT (GPT) 47 U/L (12-78); AST (GOT) 56 U/L (15-37)
[2017-10-15 20:02] LABS: CREATININE 0.68 MG/DL (0.60-1.30); GLOMERULAR FILTRATION RATE 122 ML/MIN (>89)
[2017-10-15 20:03] LABS: TOTAL BILIRUBIN ADULT 0.6 MG/DL (0.2-1.0); TOTAL PROTEIN 5.2 GM/DL (6.4-8.2)
[2017-10-15 20:04] LABS: ALKALINE PHOSPHATASE 222 U/L (45-117)
--- NOTE | 2017-10-15 20:04 | PD ---
Physical Exam Date Seen by Provider: Oct 15, 2017 Time Seen by Provider: 19:55 Narrative Accepted in transfer of care from Dr Akins GENERAL: Well-developed thin male in no acute distress no respiratory SKIN: Warm and dry. HEAD: Normocephalic. EYES: No scleral icterus. No injection or drainage. NECK: Supple, trachea midline. No JVD or lymphadenopathy. CARDIOVASCULAR: Regular rate and rhythm without murmurs, gallops, or rubs. RESPIRATORY: Breath sounds equal bilaterally. No accessory muscle use. GASTROINTESTINAL: Abdomen soft, left lower quadrant tenderness to palpation without guarding or rebound, nondistended. Data Data Last Documented VS Vital Signs Date Time Temp Pulse Resp B/P (MAP) Pulse Ox O2 Delivery O2 Flow Rate FiO2 10/15/17 19:30 86 18 106/60 (75) 100 Room Air 10/15/17 16:54 98.6 Orders Orders Complete Blood Count With Diff (10/15/17 18:38) Comprehensive Metabolic Panel (10/15/17 18:38) Lipase (10/15/17 18:38) Prothrombin Time / Inr (Pt) (10/15/17 18:38) Act Partial Throm Time (Ptt) (10/15/17 18:38) Urinalysis - C+S If Indicated (10/15/17 18:38) Ct Abd/Pel W Iv Contrast(Rout) (10/15/17 18:38) Iv Access Insert/Monitor (10/15/17 18:38) Ecg Monitoring (10/15/17 18:38) Oximetry (10/15/17 18:38) NPO (10/15/17 18:38) Sodium Chlor 0.9% 1000 Ml Inj (Ns 1000 M (10/15/17 18:38) Sodium Chloride 0.9% Flush (Ns Flush) (10/15/17 18:45) Iohexol 350 Inj (Omnipaque 350 Inj) (10/15/17 20:40) Labs Laboratory Tests Test 10/15/17 19:27 10/15/17 19:41 White Blood Count 9.6 TH/MM3 Red Blood Count 2.47 MIL/MM3 Hemoglobin 7.3 GM/DL Hematocrit 21.9 % Mean Corpuscular Volume 88.4 FL Mean Corpuscular Hemoglobin 29.6 PG Mean Corpuscular Hemoglobin Concent 33.5 % Red Cell Distribution Width 15.5 % Platelet Count 169 TH/MM3 Mean Platelet Volume 7.3 FL Neutrophils (%) (Auto) 69.7 % Lymphocytes (%) (Auto) 16.2 % Monocytes (%) (Auto) 9.9 % Eosinophils (%) (Auto) 3.2 % Basophils (%) (Auto) 1.0 % Neutrophils # (Auto) 6.6 TH/MM3 Lymphocytes # (Auto) 1.6 TH/MM3 Monocytes # (Auto) 1.0 TH/MM3 Eosinophils # (Auto) 0.3 TH/MM3 Basophils # (Auto) 0.1 TH/MM3 CBC Comment DIFF FINAL Differential Comment Prothrombin Time 14.0 SEC Prothromb Time International Ratio 1.4 RATIO Activated Partial Thromboplast Time 28.5 SEC Blood Urea Nitrogen 7 MG/DL Creatinine 0.68 MG/DL Random Glucose 85 MG/DL Total Protein 5.2 GM/DL Albumin 1.9 GM/DL Calcium Level 7.7 MG/DL Alkaline Phosphatase 222 U/L Aspartate Amino Transf (AST/SGOT) 56 U/L Alanine Aminotransferase (ALT/SGPT) 47 U/L Total Bilirubin 0.6 MG/DL Sodium Level 141 MEQ/L Potassium Level 3.5 MEQ/L Chloride Level 114 MEQ/L Carbon Dioxide Level 20.2 MEQ/L Anion Gap 7 MEQ/L Estimat Glomerular Filtration Rate 122 ML/MIN Lipase 301 U/L Urine Collection Type CLEAN CATCH Urine Color YELLOW Urine Turbidity CLOUDY Urine pH 6.0 Urine Specific [place] 1.025 Urine Protein NEG mg/dL Urine Glucose (UA) NEG mg/dL Urine Ketones NEG mg/dL Urine Occult Blood SMALL Urine Nitrite NEG Urine Bilirubin NEG Urine Urobilinogen 0.2 MG/DL Urine Leukocyte Esterase NEG Urine RBC 0-3 /hpf Urine WBC 0-2 /hpf Urine Squamous Epithelial Cells 0-5 /hpf Urine Calcium Oxalate Crystals MANY /hpf Urine Bacteria OCC /hpf Urine Mucus FEW /lpf Microscopic Urinalysis Comment CULT NOT INDICATED MDM Medical Record Reviewed: Yes Supervised Visit with JUAN: No Interpretation(s) Last Impressions Abdomen/Pelvis CT 10/15/178 Signed Impressions: Service Date/Time: Sunday, October 15, 2017 20:29 - CONCLUSION: Persistent and worsening acute/active Crohn's. Please see above. No abscess or perforation. Small ascites not significantly changed. Oc Haq MD CBC & BMP Diagram 10/15/17 19:27 Total Protein 5.2 L, Albumin 1.9 L, Calcium Level 7.7 L, Alkaline Phosphatase 222 H, Aspartate Amino Transf (AST/SGOT) 56 H, Alanine Aminotransferase (ALT/ SGPT) 47, Total Bilirubin 0.6 Vital Signs Date Time Temp Pulse Resp B/P (MAP) Pulse Ox O2 Delivery O2 Flow Rate FiO2 10/15/17 19:30 86 18 106/60 (75) 100 Room Air 10/15/17 19:00 92 18 110/67 (81) 99 Room Air 10/15/17 19:00 18 10/15/17 16:54 98.6 107 18 117/57 (77) 99 Differential Diagnosis Accepted in transfer of care from Dr Akins; please refer to her dictation Narrative Course Accepted in transfer of care from Dr Akins; follow up labs, CT, and disposition Physician Communication Physician Communication call placed to JADE Lane; call placed to Dr Irene Diagnosis Primary Impression: Crohns disease Qualified Codes: K50.919 - Crohn's disease, unspecified, with unspecified complications Additional Impression: Anemia Admitting Information Admitting Physician Requests: Admit Odalis Pastrana MD Oct 15, 2017 20:04
[2017-10-15] MEDS ORDERED: IOHEXOL 350 MG/ML 10 ML VIAL (for RAD DIAG) IVCONTRAST ONE (20:40)
--- NOTE | 2017-10-15 20:54 | RADRPT ---
EXAM DATE/TIME: 10/15/2017 20:29 [facility] COMPARISON: CT ABDOMEN & PELVIS W/O CONTRAST, September 24, 2017, 11:46. CT ABDOMEN & PELVIS W CONTRAST, September 09 018, 10:31. INDICATIONS : Abdominal pain. IV CONTRAST: 100 cc Omnipaque 350 (iohexol) IV ORAL CONTRAST: No oral contrast ingested. RADIATION DOSE: 5.30 CTDIvol (mGy) MEDICAL HISTORY : Pancreatitis. Hernia, hiatal. Gastroesophageal reflux disease.Crohn;s. SURGICAL HISTORY : Colon resection. ENCOUNTER: Initial ACUITY: 1 day PAIN SCALE: 8/10 LOCATION: Bilateral abdomen. TECHNIQUE: Volumetric scanning of the abdomen and pelvis was performed. Using automated exposure control and ad justment of the mA and/or kV according to patient size, radiation dose was kept as low as reasonably achievable to obtain optimal diagnostic quality images. DICOM format image data is available electro nically for review and comparison. FINDINGS: Findings of an ileocolic resection and anastomosis again noted. There is persistent wall thickening a nd mucosal enhancement of the mid and distal portions of the remaining small bowel compatible with ac [place] Crohn's. This is at least as bad as on the priors. There is increased distention of small bowel l oops focally in the pelvic cavity, for example series 2 image 68 and would suggest an associated part ial obstruction. No abscess, perforation/free air seen. Small free fluid/ascites, about the same. No free air. TIPS present, grossly patent. A few small stones in an otherwise normal-appearing gallbladder again s een. Spleen, pancreas, adrenal glands and kidneys are all without an acute abnormality. Nonobstructin g stones are again seen measuring up to 8 mm in size. CONCLUSION: Persistent and worsening acute/active Crohn's. Please see above. No abscess or perforation. Small asc ites not significantly changed. Oc Haq MD on October 15, 2017 at 20:45 Board Certified Radiologist. This report was verified electronically.
[2017-10-15] MEDS ORDERED: MAGNESIUM HYDROXIDE SUSP 30 ML CUP PO PRN (21:30)
[2017-10-15] MEDS ORDERED: BISACODYL 10 MG SUPP RECTAL PRN (21:30)
[2017-10-15] MEDS ORDERED: LACTULOSE SYRUP 20 GM/30 ML CUP PO PRN (21:30)
[2017-10-15] MEDS ORDERED: ACETAMINOPHEN 325 MG TAB PO PRN (21:30)
[2017-10-15] MEDS ORDERED: methylPREDNISolone SOD SUCC 125 MG/2 ML VIAL IV PUSH ONE (21:30)
[2017-10-15] MEDS ORDERED: SENNOSIDES 8.6 MG TAB PO PRN (21:30)
[2017-10-15] MEDS: PIPERACIL-TAZO 4.5 GM PREMIX 100 ML IV SCH (21:59)
[2017-10-15] MEDS: ONDANSETRON HCL 4 MG/2 ML VIAL IVP PRN (22:26)
[2017-10-15] MEDS: MORPHINE SULFATE 2 MG/ML SYRINGE IV PUSH PRN (22:27)
[2017-10-15] MEDS: SODIUM CHLOR 0.9% 1000 ML INJ 1,000 ML IV SCH (22:51)
[2017-10-16] VITALS (7 sets, daily range): BP systolic 98–137; BP diastolic 55–65; PULSE 74–100; RESP 16–18; TEMP 96–98.3; O2SAT 92–99
[2017-10-16] MEDS: ALPRAZolam 0.5 MG TAB PO PRN ×2 (00:37→10:13)
[2017-10-16] MEDS: SODIUM CHLORIDE 0.9% FLUSH 10 ML FLUSH IV FLUSH PRN ×2 (01:34→04:41)
[2017-10-16] MEDS: MORPHINE SULFATE 2 MG/ML SYRINGE IV PUSH PRN ×6 (01:34→20:46)
[2017-10-16] MEDS: PIPERACIL-TAZO 4.5 GM PREMIX 100 ML IV SCH ×4 (04:40→23:13)
[2017-10-16] MEDS: ONDANSETRON HCL 4 MG/2 ML VIAL IVP PRN ×2 (04:41→12:39)
[2017-10-16] MEDS: SODIUM CHLOR 0.9% 1000 ML INJ 1,000 ML IV SCH ×2 (06:30→14:48)
[2017-10-16 06:59] LABS: AUTOMATED NEUTROPHIL # 7.6 TH/MM3 (1.8-7.7); BASOPHIL % 0.5 % (0.0-2.0); EOSINOPHIL % 0.2 % (0.0-4.0); HEMATOCRIT 23.9 % (39.0-51.0); HEMOGLOBIN 7.6 GM/DL (13.0-17.0); LYMPH % 8.2 % (9.0-44.0); LYMPHOCYTE # 0.7 TH/MM3 (1.0-4.8); MEAN CELL VOLUME 89.1 FL (80.0-100.0); MEAN CORPUSCULAR HEMOGLOBIN 28.2 PG (27.0-34.0); MEAN CORPUSCULAR HGB CONC 31.7 % (32.0-36.0); MEAN PLATELET VOLUME 7.5 FL (7.0-11.0); MONO % 0.6 % (0.0-8.0); MONOCYTE # 0.1 TH/MM3 (0-0.9); NEUT % 90.5 % (16.0-70.0); PLATELET COUNT 175 TH/MM3 (150-450); RED BLOOD COUNT 2.68 MIL/MM3 (4.50-5.90); RED CELL DISTRIBUTION WIDTH 15.8 % (11.6-17.2); WHITE BLOOD COUNT 8.4 TH/MM3 (4.0-11.0)
[2017-10-16 07:21] LABS: ALBUMIN 1.9 GM/DL (3.4-5.0); BICARBONATE 16.7 MEQ/L (21.0-32.0); CALCIUM 7.4 MG/DL (8.5-10.1); CALCIUM-PROTEIN CORRECTED 8.6 MG/DL (8.5-10.1); CREATININE 0.61 MG/DL (0.60-1.30); TOTAL BILIRUBIN ADULT 0.9 MG/DL (0.2-1.0)
[2017-10-16] MEDS ORDERED: HYDROCORTISONE SOD SUCCINATE 100 MG VIAL IV PUSH SCH (08:00)
[2017-10-16] MEDS: MESALAMINE 250 MG CAP PO SCH ×4 (08:33→23:02)
[2017-10-16] MEDS: SODIUM CHLORIDE 0.9% FLUSH 10 ML FLUSH IV FLUSH SCH ×2 (08:35→20:48)
[2017-10-16] MEDS ORDERED: methylPREDNISolone SOD SUCC 40 MG/1 ML VIAL IV PUSH SCH (09:00)
[2017-10-16] MEDS ORDERED: DOCUSATE SODIUM 50 MG/SENNA 8.6 MG TAB PO SCH (09:00)
--- NOTE | 2017-10-16 11:30 | HHI.HP ---
HPI Service [facility] Primary Care Physician No Primary Care Physician Admission Diagnosis Exacerbation Crohn's; partial SBO; anemia Diagnoses: Travel History International Travel<30 Days: No Contact w/Intl Traveler <30 Da: No Traveled to Known Affected Are: No History of Present Illness hx from patient reports of abdominal pain getting worse and worse over 2 yrs now almost every weekly attacks just saw Dr Lane about 3 days ago no fever past few days but had fevers on and off prior had nausea, but depends how much he eats vomited only twice in past one week- once was self induced, no blood in it no black or red color stools was having consitpation for 2 days, but once it came out, it flows like diarrhea there were times there was nothing but water has hx of cirrhosis and had TIPS with stent placement prior 06/12/17 was admitted from 06/06/17- 06/16/17 ran out of lasix about [address] Lane and had new prescription for aldactone and now only taking aldactone for diuretics per patient, had recent right index finger injuries and was in hospital and was on antibiotics now has worsening infection at left nipple area and right groin area - however, on exam was very benign small pimple has hx of MRSA in 04/2017 no other complaints Review of Systems Except as stated in HPI: all other systems reviewed are Neg Past Family Social History Past Medical History copd heart [place] liver cirrhosis portal htn s/p TIPS with stent cronh's disease - diagnosed when he was 24yo, partial colon resection in his 20s , no surgeries since then- got worse only in past 2 yrs and started seeing doctors again Past Surgical History partial colon resection tonsilectomy Allergies: Coded Allergies: tetanus toxoid, adsorbed (Verified Allergy, Severe, Nausea/Vomiting, ) Family History mom- 2 MIs , 2 strokes, cant walk from car accident dad- arthritis pains Social History half a pack a day drinks only about small shot every few days for pain no drugs Physical Exam Vital Signs Vital Signs Date Time Temp Pulse Resp B/P (MAP) Pulse Ox O2 Delivery O2 Flow Rate FiO2 10/16/17 08:57 18 10/16/17 08:00 96.0 90 16 98/55 (69) 98 10/16/17 05:53 81 10/16/17 04:00 98.1 82 18 115/63 (80) 92 10/16/17 00:00 98.3 87 16 110/59 (76) 94 10/15/17 23:00 82 18 106/63 (77) 99 10/15/17 22:30 85 18 99/57 (71) 99 Room Air 10/15/17 21:30 84 18 114/61 (78) 98 Room Air 10/15/17 20:30 84 18 103/62 (76) 99 Room Air 10/15/17 19:30 86 18 106/60 (75) 100 Room Air 10/15/17 19:00 92 18 110/67 (81) 99 Room Air 10/15/17 19:00 18 10/15/17 16:54 98.6 107 18 117/57 (77) 99 Physical Exam GENERAL: This is middle aged gentleman, looks chronically ill, much older than his age, pale SKIN: No rashes, ecchymoses or lesions. Cool and dry. HEAD: Atraumatic. Normocephalic. No temporal or scalp tenderness. EYES: No scleral icterus. No injection or drainage. ENT: Nose without bleeding, purulent drainage or septal hematoma. Airway patent. NECK: Trachea midline. No JVD Supple, nontender, no meningeal signs. CARDIOVASCULAR: Regular rate and rhythm without murmurs, gallops, or rubs. RESPIRATORY: Clear to auscultation. Breath sounds equal bilaterally. No wheezes , rales, or rhonchi. GASTROINTESTINAL: Abdomen soft, tenderness diffusely more so at lower abdomen No guarding. MUSCULOSKELETAL: Extremities without clubbing, cyanosis, or edema.No calf tenderness. NEUROLOGICAL: Awake and alert. Motor and sensory grossly within normal limits. Normal speech. Laboratory Laboratory Tests Test 10/15/17 19:27 10/15/17 19:41 10/16/17 06:40 White Blood Count 9.6 8.4 Red Blood Count 2.47 2.68 Hemoglobin 7.3 7.6 Hematocrit 21.9 23.9 Mean Corpuscular Volume 88.4 89.1 Mean Corpuscular Hemoglobin 29.6 28.2 Mean Corpuscular Hemoglobin Concent 33.5 31.7 Red Cell Distribution Width 15.5 15.8 Platelet Count 169 175 Mean Platelet Volume 7.3 7.5 Neutrophils (%) (Auto) 69.7 90.5 Lymphocytes (%) (Auto) 16.2 8.2 Monocytes (%) (Auto) 9.9 0.6 Eosinophils (%) (Auto) 3.2 0.2 Basophils (%) (Auto) 1.0 0.5 Neutrophils # (Auto) 6.6 7.6 Lymphocytes # (Auto) 1.6 0.7 Monocytes # (Auto) 1.0 0.1 Eosinophils # (Auto) 0.3 0.0 Basophils # (Auto) 0.1 0.0 CBC Comment DIFF FINAL DIFF FINAL Differential Comment Prothrombin Time 14.0 Prothromb Time International Ratio 1.4 Activated Partial Thromboplast Time 28.5 Blood Urea Nitrogen 7 6 Creatinine 0.68 0.61 Random Glucose 85 131 Total Protein 5.2 5.0 Albumin 1.9 1.9 Calcium Level 7.7 7.4 Alkaline Phosphatase 222 210 Aspartate Amino Transf (AST/SGOT) 56 44 Alanine Aminotransferase (ALT/SGPT) 47 43 Total Bilirubin 0.6 0.9 Sodium Level 141 145 Potassium Level 3.5 3.6 Chloride Level 114 120 Carbon Dioxide Level 20.2 16.7 Anion Gap 7 8 Estimat Glomerular Filtration Rate 122 139 Lipase 301 Urine Collection Type CLEAN CATCH Urine Color YELLOW Urine Turbidity CLOUDY Urine pH 6.0 Urine Specific [place] 1.025 Urine Protein NEG Urine Glucose (UA) NEG Urine Ketones NEG Urine Occult Blood SMALL Urine Nitrite NEG Urine Bilirubin NEG Urine Urobilinogen 0.2 Urine Leukocyte Esterase NEG Urine RBC 0-3 Urine WBC 0-2 Urine Squamous Epithelial Cells 0-5 Urine Calcium Oxalate Crystals MANY Urine Bacteria OCC Urine Mucus FEW Microscopic Urinalysis Comment CULT NOT INDICATED Protein Corrected Calcium 8.6 Result Diagram: 10/16/17 0640 10/16/17 0640 Imaging Last 48 hours Impressions Abdomen/Pelvis CT 10/15/17 8128 Signed Impressions: Service Date/Time: Sunday, October 15, 2017 20:29 - CONCLUSION: Persistent and worsening acute/active Crohn's. Please see above. No abscess or perforation. Small ascites not significantly changed. MD Roc Natarajan VTE Risk Assessment Roc VTE Risk Assessment: Mod/High Risk (score >= 2) Caprini Risk Assessment Model Point Value = 1 Point Value = 2 Point Value = 3 Point Value = 5 Age 41-60 Minor surgery BMI > 25 kg/m2 Swollen legs Varicose veins or History of unexplained or recurrent spontaneous Oral contraceptives or hormone replacement Sepsis (< 1 month) Serious lung disease, including pneumonia (< 1 month) Abnormal pulmonary function Acute myocardial infarction Congestive heart failure (< 1 month) History of inflammatory bowel disease Medical patient at bed rest Age 61-74 Arthroscopic surgery Major open surgery (> 45 min) Laparoscopic surgery (> 45 min) Malignancy Confined to bed (> 72 hours) Immobilizing plaster cast Central venous access Age >= 75 History of VTE Family history of VTE Factor V Leiden Prothrombin [id number] Lupus anticoagulant Anticardiolipin antibodies Elevated serum homocysteine Heparin-induced thrombocytopenia Other congenital or acquired thrombophilia Stroke (< 1 month) Elective arthroplasty Hip, pelvis, or leg fracture Acute spinal cord injury (< 1 month) Prophylaxis Regimen Total Risk Factor Score Risk Level Prophylaxis Regimen 0-1 Low Early ambulation 2 Moderate Order ONE of the following: *Sequential Compression Device (SCD) *Heparin 5000 units SQ BID 3-4 Higher Order ONE of the following medications: *Heparin 5000 units SQ TID *Enoxaparin/Lovenox 40 mg SQ daily (WT < 150 kg, CrCl > 30 mL/min) *Enoxaparin/Lovenox 30 mg SQ daily (WT < 150 kg, CrCl > 10-29 mL/min) *Enoxaparin/Lovenox 30 mg SQ BID (WT < 150 kg, CrCl > 30 mL/min) AND/OR *Sequential Compression Device (SCD) 5 or more Highest Order ONE of the following medications: *Heparin 5000 units SQ TID (Preferred with Epidurals) *Enoxaparin/Lovenox 40 mg SQ daily (WT < 150 kg, CrCl > 30 mL/min) *Enoxaparin/Lovenox 30 mg SQ daily (WT < 150 kg, CrCl > 10-29 mL/min) *Enoxaparin/Lovenox 30 mg SQ BID (WT < 150 kg, CrCl > 30 mL/min) AND *Sequential Compression Device (SCD) Assessment and Plan Assessment and Plan Impression: Acute active crohns exacerbation anemia- chronic copd gerd liver cirrhosis portal htn s/p TIPS with stent Plan: transfer to [facility] consulted Dr Lane likely colonscopy ct zosyn ct solucortef with tapering at dc pain control monitor for fevers pentasa aldactone dvt prophylaxis with scd gi prophylaxis with pantoprazole Discussed Condition With patient, his father at [facility] (briefely as he had to leave for work) Physician Certification 2 Midnight Certification Type: Admission for Inpatient Services Order for Inpatient Services The services are ordered in accordance with Medicare regulations or non- Medicare payer requirements, as applicable. In the case of services not specified as inpatient-only, they are appropriately provided as inpatient services in accordance with the 2-midnight benchmark. Estimated LOS (days): 4 days is the estimated time the patient will need to remain in the hospital, assuming treatment plan goals are met and no additional complications. Post-Hospital Plan: Home Reji Eubanks MD Oct 16, 2017 11:30
[2017-10-16] MEDS: HYDROCORTISONE SOD SUCCINATE 100 MG VIAL IV PUSH SCH ×2 (15:37→23:13)
--- NOTE | 2017-10-16 19:44 | HHI.PR ---
Subjective Remarks C/R Surg Pt known from prev adm C/o more pain, abd distention still loose stools Objective - Vital Signs Date Time Temp Pulse Resp B/P (MAP) Pulse Ox O2 Delivery O2 Flow Rate FiO2 10/16/17 16:00 97.4 74 16 119/59 (79) 99 10/15/17 22:30 Room Air Result Diagram: 10/16/17 0640 10/16/17 0640 Other Results PE alert Abd - lg, tender, tympany, no mass A/P Assessment and Plan Imp: Crohn's ds, - log standing ds at TI - pt needs either resection or bypass, poss stoma Long standing cirrhosis major risk factor reviewed with pt, mother, will gemtly prep bowels, and plan surgery for Wed. Ashwin Lane MD Oct 16, 2017 19:44
[2017-10-16] MEDS ORDERED: SODIUM CHLOR 0.9% 250 ML INJ 250 ML IV ONE (19:45)
[2017-10-17] VITALS (7 sets, daily range): BP systolic 102–126; BP diastolic 51–61; PULSE 65–99; RESP 16–19; TEMP 97.3–97.8; O2SAT 95–100
[2017-10-17] MEDS: ALPRAZolam 0.5 MG TAB PO PRN ×4 (00:34→21:04)
[2017-10-17] MEDS: MORPHINE SULFATE 2 MG/ML SYRINGE IV PUSH PRN ×7 (00:35→22:22)
[2017-10-17] MEDS: PIPERACIL-TAZO 4.5 GM PREMIX 100 ML IV SCH ×4 (06:40→20:47)
[2017-10-17] MEDS: SODIUM CHLOR 0.9% 1000 ML INJ 1,000 ML IV SCH (06:51)
[2017-10-17] MEDS ORDERED: FUROSEMIDE 40 MG TAB PO SCH (09:00)
[2017-10-17] MEDS: PANTOPRAZOLE SOD 40 MG DELAYED RELEASE TAB PO SCH (09:05)
[2017-10-17] MEDS: SODIUM CHLORIDE 0.9% FLUSH 10 ML FLUSH IV FLUSH SCH ×2 (09:05→20:56)
[2017-10-17] MEDS: SPIRONOLACTONE 50 MG TAB PO SCH (09:05)
[2017-10-17] MEDS: HYDROCORTISONE SOD SUCCINATE 100 MG VIAL IV PUSH SCH ×2 (09:05→16:58)
[2017-10-17] MEDS: MESALAMINE 250 MG CAP PO SCH ×4 (09:05→20:48)
--- NOTE | 2017-10-17 12:02 | HHI.PR ---
Subjective Remarks The patient so that his pain was an 8 out of 10 in severity. He required more frequent dosing of Xanax. He was hoping for surgery tomorrow morning. He wanted to know if he could eat actual food today. Discussed with nursing. Objective Vitals Vital Signs Date Time Temp Pulse Resp B/P (MAP) Pulse Ox O2 Delivery O2 Flow Rate FiO2 10/17/17 08:00 97.5 96 19 102/51 (68) 100 10/17/17 06:57 16 10/17/17 04:00 97.8 99 18 118/58 (78) 96 10/17/17 00:41 97.4 89 16 103/51 98 10/17/17 00:00 97.3 65 18 106/59 (75) 95 10/16/17 20:00 97.8 100 18 137/65 (89) 97 10/16/17 16:00 97.4 74 16 119/59 (79) 99 10/16/17 12:00 96.0 82 16 114/57 (76) 98 I/O 10/16/17 10/16/17 10/16/17 10/17/17 10/17/17 10/17/17 07:00 15:00 23:00 07:00 15:00 23:00 Intake Total 724 ml 600 ml 1680 ml Output Total 250 ml Balance 474 ml 600 ml 1680 ml Intake Oral 600 ml 780 ml IV Total 724 ml Packed Cells 800 ml Blood Product IV Normal Saline Flush 100 ml Output Urine Total 250 ml # Voids 1 2 3 # Bowel Movements 2 Result Diagram: 10/16/17 0640 10/16/17 0640 Imaging Last Impressions Abdomen/Pelvis CT 10/15/17 1838 Signed Impressions: Service Date/Time: Sunday, October 15, 2017 20:29 - CONCLUSION: Persistent and worsening acute/active Crohn's. Please see above. No abscess or perforation. Small ascites not significantly changed. Oc Haq MD Objective Remarks GENERAL: No distress. SKIN: No rashes, ecchymoses or lesions. Cool and dry. HEAD: Atraumatic. Normocephalic. No temporal or scalp tenderness. EYES: No scleral icterus. No injection or drainage. ENT: Nose without bleeding, purulent drainage or septal hematoma. Airway patent. NECK: Trachea midline. No JVD Supple, nontender, no meningeal signs. CARDIOVASCULAR: Regular rate and rhythm without murmurs, gallops, or rubs. RESPIRATORY: Clear to auscultation. Breath sounds equal bilaterally. No wheezes , rales, or rhonchi. GASTROINTESTINAL: Abdomen soft, tenderness diffusely more so at lower abdomen. No guarding. MUSCULOSKELETAL: Extremities without clubbing, cyanosis, or edema.No calf tenderness. NEUROLOGICAL: Awake and alert. Motor and sensory grossly within normal limits. Normal speech. Medications and IVs Current Medications Medications (Trade) Dose Ordered Sig/Vikki Route Start Time Stop Time Status Last Admin (NS Flush) 2 ml UNSCH PRN IV FLUSH 10/15/17 21:30 10/16/17 04:41 (NS Flush) 2 ml BID IV FLUSH 10/16/17 09:00 10/17/17 09:05 (Zofran Inj) 4 mg Q6H PRN IVP 10/15/17 21:30 10/16/17 12:39 (Tylenol) 650 mg Q6H PRN PO 10/15/17 21:30 ([place] 5-325 Mg) 1 tab Q4H PRN PO 10/15/17 21:30 (Morphine Inj) 2 mg Q3H PRN IV PUSH 10/15/17 21:30 10/17/17 12:30 Piperacillin Sod/ Tazobactam Sod 100 ml @ 200 mls/hr Q6H IV 10/15/17 22:00 10/17/17 11:26 (Pentasa Sr) 1,000 mg QID PO 10/16/17 09:00 10/17/17 09:05 (Protonix) 40 mg DAILY PO 10/17/17 09:00 10/17/17 09:05 (Aldactone) 50 mg DAILY PO 10/17/17 09:00 10/17/17 09:05 (Duoneb Neb) 1 ampule Q4HR NEB PRN NEB 10/16/17 11:45 10/17/17 12:38 (SoluCORTEF INJ) 100 mg Q8H IV PUSH 10/16/17 16:00 10/17/17 09:05 (Xanax) 0.5 mg Q6H PRN PO 10/17/17 12:30 UNV (Morphine Inj) 2 mg Q4H PRN IV PUSH 10/17/17 12:30 UNV A/P Assessment and Plan Acute active Crohn's disease exacerbation Colorectal surgery consult appreciated. - Anticipate surgery on Monday. - continue Zosyn. - continue steroids with tapering at dc. - Pentasa. - pain control. Anemia Chronic. - follow CBC and transfuse as needed. Liver cirrhosis/ portal htn S/p TIPS with stent. - continue Aldactone. Anxiety Chronic. - Increase frequency of Xanax. DVT prophylaxis with scds Francis Levi DO Oct 17, 2017 12:02
[2017-10-17] MEDS: RESP: ALBUTEROL 2.5 MG/IPRATROPIUM 0.5 MG NEB (PRN) NEB (12:38)
[2017-10-17 22:09] LABS: HEMATOCRIT 25.2 % (39.0-51.0); HEMOGLOBIN 8.5 GM/DL (13.0-17.0)
[2017-10-18] VITALS (8 sets, daily range): BP systolic 104–126; BP diastolic 56–79; PULSE 70–92; RESP 17–20; TEMP 96.7–97.9; O2SAT 75–98
[2017-10-18] MEDS: MORPHINE SULFATE 2 MG/ML SYRINGE IV PUSH PRN ×2 (02:40→04:19)
[2017-10-18] MEDS: PIPERACIL-TAZO 4.5 GM PREMIX 100 ML IV SCH ×2 (04:19→08:50)
[2017-10-18] MEDS: ALPRAZolam 0.5 MG TAB PO PRN ×4 (04:19→22:14)
[2017-10-18 07:12] LABS: HEMOGLOBIN 10.2 GM/DL (13.0-17.0); MEAN CELL VOLUME 86.5 FL (80.0-100.0); MEAN CORPUSCULAR HEMOGLOBIN 29.5 PG (27.0-34.0); MEAN CORPUSCULAR HGB CONC 34.1 % (32.0-36.0); MEAN PLATELET VOLUME 8.1 FL (7.0-11.0); PLATELET COUNT 111 TH/MM3 (150-450); RED BLOOD COUNT 3.47 MIL/MM3 (4.50-5.90); RED CELL DISTRIBUTION WIDTH 15.6 % (11.6-17.2); WHITE BLOOD COUNT 18.1 TH/MM3 (4.0-11.0)
[2017-10-18 07:52] LABS: BICARBONATE 16.8 MEQ/L (21.0-32.0); CALCIUM 7.1 MG/DL (8.5-10.1); CREATININE 0.87 MG/DL (0.60-1.30); MAGNESIUM 1.4 MG/DL (1.5-2.5)
[2017-10-18 08:13] LABS: CALCIUM-PROTEIN CORRECTED 8.2 MG/DL (8.5-10.1); TOTAL PROTEIN 5.1 GM/DL (6.4-8.2)
[2017-10-18] MEDS: RESP: ALBUTEROL 2.5 MG/IPRATROPIUM 0.5 MG NEB (PRN) NEB ×3 (08:36→19:31)
[2017-10-18] MEDS: MESALAMINE 250 MG CAP PO SCH ×4 (08:50→20:20)
[2017-10-18] MEDS: HYDROCORTISONE SOD SUCCINATE 100 MG VIAL IV PUSH SCH ×4 (08:50→22:16)
[2017-10-18] MEDS: PANTOPRAZOLE SOD 40 MG DELAYED RELEASE TAB PO SCH (08:50)
[2017-10-18] MEDS: SPIRONOLACTONE 50 MG TAB PO SCH (08:50)
[2017-10-18] MEDS: ACETAMINOPHEN/HYDROcodone 325 MG/5 MG TAB PO PRN ×2 (08:59→13:08)
[2017-10-18] MEDS ORDERED: POTASSIUM CHLORIDE 25 MEQ EFFERVESCENT TAB PO ONE ×2 (10:15→15:00)
[2017-10-18] MEDS: MAGNESIUM SULFATE 1 GM PREMIX 100 ML IV SCH ×2 (10:39→13:09)
[2017-10-18] MEDS: SODIUM CHLORIDE 0.9% FLUSH 10 ML FLUSH IV FLUSH SCH ×2 (10:40→20:20)
--- NOTE | 2017-10-18 11:01 | HHI.PR ---
Subjective Remarks C/R Surg Pt known from prev adm asking for more food, abd still distended Objective - Vital Signs Date Time Temp Pulse Resp B/P (MAP) Pulse Ox O2 Delivery O2 Flow Rate FiO2 10/18/17 08:00 97.1 70 17 126/60 (82) 98 10/15/17 22:30 Room Air Result Diagram: 10/18/17 0658 10/18/17 0658 Objective Remarks PE alert Abd - full, tight, +stools A/P Assessment and Plan Imp: Crohn's ds, - tried to sched surgery, but no OR time available correct electrolyes plan OR when time available, Ashwin Lane MD Oct 18, 2017 11:01
[2017-10-18] MEDS: POTASSIUM CHLOR 20 MEQ PREMIX 100 ML IV SCH ×2 (11:15→20:19)
--- NOTE | 2017-10-18 11:38 | HHI.PR ---
Subjective Remarks The patient was ambulating the hallways. He wanted to know when he would be scheduled for surgery. He said that he was eating eggs this morning. Discussed with nursing. Objective Vitals Vital Signs Date Time Temp Pulse Resp B/P (MAP) Pulse Ox O2 Delivery O2 Flow Rate FiO2 10/18/17 08:00 97.1 70 17 126/60 (82) 98 10/18/17 05:13 20 10/18/17 03:47 20 10/18/17 02:38 97.3 75 20 117/61 75 10/18/17 00:41 97.3 72 20 116/62 98 10/18/17 00:26 97.2 78 18 112/79 97 10/18/17 00:00 97.7 92 18 104/56 (72) 98 10/17/17 20:00 97.7 94 17 126/61 (82) 95 10/17/17 16:00 97.4 85 18 103/59 (74) 96 10/17/17 12:00 97.6 86 19 110/59 (76) 99 I/O 10/17/17 10/17/17 10/17/17 10/18/17 10/18/17 10/18/17 07:00 15:00 23:00 07:00 15:00 23:00 Intake Total 1680 ml 1080 ml 1180 ml Balance 1680 ml 1080 ml 1180 ml Intake Oral 780 ml 1080 ml 780 ml Packed Cells 800 ml 400 ml Blood Product IV Normal Saline Flush 100 ml # Voids 3 6 2 Result Diagram: 10/18/17 0658 10/18/17 0658 Imaging Last Impressions Abdomen/Pelvis CT 10/15/17 9658 Signed Impressions: Service Date/Time: Sunday, October 15, 2017 20:29 - CONCLUSION: Persistent and worsening acute/active Crohn's. Please see above. No abscess or perforation. Small ascites not significantly changed. Oc Haq MD Objective Remarks GENERAL: No distress. SKIN: No rashes, ecchymoses or lesions. Cool and dry. HEAD: Atraumatic. Normocephalic. No temporal or scalp tenderness. EYES: No scleral icterus. No injection or drainage. ENT: Nose without bleeding, purulent drainage or septal hematoma. Airway patent. NECK: Trachea midline. No JVD Supple, nontender, no meningeal signs. CARDIOVASCULAR: Regular rate and rhythm without murmurs, gallops, or rubs. RESPIRATORY: Clear to auscultation. Breath sounds equal bilaterally. No wheezes , rales, or rhonchi. GASTROINTESTINAL: Abdominal tenderness diffusely more so at lower abdomen. No guarding. MUSCULOSKELETAL: Extremities without clubbing, cyanosis, or edema.No calf tenderness. NEUROLOGICAL: Awake and alert. Motor and sensory grossly within normal limits. Normal speech. Medications and IVs Current Medications Medications (Trade) Dose Ordered Sig/Vikki Route Start Time Stop Time Status Last Admin (NS Flush) 2 ml UNSCH PRN IV FLUSH 10/15/17 21:30 10/16/17 04:41 (NS Flush) 2 ml BID IV FLUSH 10/16/17 09:00 10/18/17 10:40 (Zofran Inj) 4 mg Q6H PRN IVP 10/15/17 21:30 10/16/17 12:39 (Tylenol) 650 mg Q6H PRN PO 10/15/17 21:30 ([place] 5-325 Mg) 1 tab Q4H PRN PO 10/15/17 21:30 10/18/17 08:59 (Morphine Inj) 2 mg Q3H PRN IV PUSH 10/15/17 21:30 10/18/17 04:19 (Pentasa Sr) 1,000 mg QID PO 10/16/17 09:00 10/18/17 08:50 (Protonix) 40 mg DAILY PO 10/17/17 09:00 10/18/17 08:50 (Aldactone) 50 mg DAILY PO 10/17/17 09:00 10/18/17 08:50 (Duoneb Neb) 1 ampule Q4HR NEB PRN NEB 10/16/17 11:45 10/18/17 08:36 (SoluCORTEF INJ) 100 mg Q8H IV PUSH 10/16/17 16:00 10/18/17 08:50 (Xanax) 0.5 mg Q6H PRN PO 10/17/17 12:30 10/18/17 10:39 (Morphine Inj) 2 mg Q4H PRN IV PUSH 10/17/17 12:30 10/17/17 20:53 (K-Lyte Cl Eff) 50 meq ONCE ONCE PO 10/18/17 15:00 10/18/17 15:01 Magnesium Sulfate/ Dextrose 100 ml @ 100 mls/hr Q1H IV 10/18/17 11:00 10/18/17 12:59 10/18/17 10:39 (Lasix Inj) 20 mg Q12HR IV PUSH 10/18/17 11:15 UNV Potassium Chloride 100 ml @ 50 mls/hr Q12HR IV 10/18/17 11:15 UNV A/P Assessment and Plan Acute active Crohn's disease exacerbation Colorectal surgery consult appreciated. - Anticipate surgery when OR time available. - continue Zosyn. - continue steroids with tapering at dc. - Pentasa. - pain control. Anemia Chronic. - follow CBC and transfuse as needed. Liver cirrhosis/ portal htn S/p TIPS with stent. - continue Aldactone. - Lasix per surgery. Anxiety Chronic. - Increase frequency of Xanax. Hypokalemia/ hypomagnesemia/hyponatremia Secondary to decreased p.o. intake. -Replete with IV and p.o. supplementation and monitor. DVT prophylaxis with scds Discharge Planning Awaiting surgery Francis Levi DO Oct 18, 2017 11:37
[2017-10-18] MEDS: FUROSEMIDE 20 MG/2 ML VIAL IV PUSH SCH ×2 (13:08→20:19)
[2017-10-18] MEDS: ACETAMINOPHEN/HYDROcodone 325 MG/10 MG TAB PO PRN ×2 (18:00→22:14)
[2017-10-18 19:21] LABS: BICARBONATE 16.7 MEQ/L (21.0-32.0); CALCIUM 7.4 MG/DL (8.5-10.1); CREATININE 0.92 MG/DL (0.60-1.30)
[2017-10-18 19:42] LABS: CALCIUM-PROTEIN CORRECTED 8.6 MG/DL (8.5-10.1)
[2017-10-19] VITALS (8 sets, daily range): BP systolic 123–158; BP diastolic 62–91; PULSE 65–81; RESP 17–20; TEMP 97.8–98; O2SAT 95–99
[2017-10-19] MEDS ORDERED: POTASSIUM CHLORIDE 10 MEQ CONTROLLED RELEASE TAB PO ONE (01:15)
[2017-10-19] MEDS ORDERED: LACTATED RINGER'S 1000 ML IV PRN (03:15)
[2017-10-19] MEDS ORDERED: POVIDONE IODINE 5% (ANTISEPSIS KIT) 4 APPLICATIONS EACH NARE PRN (03:15)
[2017-10-19] MEDS ORDERED: CHLORHEXIDINE GLUCONATE 2 % 1 PACK (2 CLOTHS) TOPICAL PRN (03:15)
[2017-10-19] MEDS: ACETAMINOPHEN/HYDROcodone 325 MG/10 MG TAB PO PRN ×3 (03:59→12:51)
[2017-10-19] MEDS: ALPRAZolam 0.5 MG TAB PO PRN ×2 (04:02→23:33)
[2017-10-19 06:06] LABS: HEMATOCRIT 29.3 % (39.0-51.0); HEMOGLOBIN 9.8 GM/DL (13.0-17.0); MEAN CELL VOLUME 86.9 FL (80.0-100.0); MEAN CORPUSCULAR HEMOGLOBIN 29.2 PG (27.0-34.0); MEAN CORPUSCULAR HGB CONC 33.6 % (32.0-36.0); PLATELET COUNT 99 TH/MM3 (150-450); RED BLOOD COUNT 3.37 MIL/MM3 (4.50-5.90); WHITE BLOOD COUNT 17.5 TH/MM3 (4.0-11.0)
[2017-10-19 06:35] LABS: BICARBONATE 19.4 MEQ/L (21.0-32.0); CREATININE 0.83 MG/DL (0.60-1.30); MAGNESIUM 1.6 MG/DL (1.5-2.5)
[2017-10-19 06:52] LABS: CALCIUM-PROTEIN CORRECTED 8.2 MG/DL (8.5-10.1); TOTAL PROTEIN 4.9 GM/DL (6.4-8.2)
[2017-10-19] MEDS ORDERED: metroNIDAZOLE 500 MG INJ 100 ML IV ONE (07:30)
[2017-10-19] MEDS: RESP: ALBUTEROL 2.5 MG/IPRATROPIUM 0.5 MG NEB (PRN) NEB ×2 (07:46→15:54)
[2017-10-19] MEDS ORDERED: PHYTONADIONE INJ 10 MG in SODIUM CHLORIDE 0.9% INJ 50 ML IV ONE (08:00)
[2017-10-19] MEDS: MESALAMINE 250 MG CAP PO SCH ×3 (08:48→18:00)
[2017-10-19] MEDS: PANTOPRAZOLE SOD 40 MG DELAYED RELEASE TAB PO SCH (08:49)
[2017-10-19] MEDS: FUROSEMIDE 20 MG/2 ML VIAL IV PUSH SCH ×2 (08:56→21:00)
[2017-10-19] MEDS: SODIUM CHLORIDE 0.9% FLUSH 10 ML FLUSH IV FLUSH SCH ×2 (08:56→21:00)
[2017-10-19] MEDS: HYDROCORTISONE SOD SUCCINATE 100 MG VIAL IV PUSH SCH ×3 (08:56→18:05)
[2017-10-19] MEDS: POTASSIUM CHLOR 20 MEQ PREMIX 100 ML IV SCH ×2 (08:58→22:00)
[2017-10-19] MEDS: SPIRONOLACTONE 50 MG TAB PO SCH (09:04)
[2017-10-19] MEDS ORDERED: NORMOSOL R INJ 1,000 ML IV ONE (12:00)
[2017-10-19] MEDS ORDERED: PROPOFOL 200 MG/20 ML AMP IV ONE (12:00)
[2017-10-19] MEDS ORDERED: POTASSIUM CHLORIDE 25 MEQ EFFERVESCENT TAB PO ONE (12:00)
[2017-10-19] MEDS ORDERED: ONDANSETRON HCL 4 MG/2 ML VIAL IV PUSH ONE (12:00)
[2017-10-19] MEDS ORDERED: ROCURONIUM INJ 50 MG/5 ML SYRINGE IV PUSH ONE (12:00)
[2017-10-19] MEDS ORDERED: LIDOCAINE HCL 1% PF 5 ML SYRINGE OTHER ONE (12:00)
--- NOTE | 2017-10-19 12:00 | HHI.PR ---
Subjective Remarks The patient wanted something to eat before surgery. Otherwise he had no acute complaints. Discussed with nursing. Objective Vitals Vital Signs Date Time Temp Pulse Resp B/P (MAP) Pulse Ox O2 Delivery O2 Flow Rate FiO2 10/19/17 07:30 97.8 76 19 123/77 (92) 98 10/19/17 00:00 98.0 65 17 125/62 (83) 99 10/18/17 23:14 20 10/18/17 20:00 97.9 74 17 120/60 (80) 95 10/18/17 16:00 97.2 76 17 124/58 (80) 98 10/18/17 12:00 96.7 78 17 115/57 (76) 97 I/O 10/18/17 10/18/17 10/18/17 10/19/17 10/19/17 10/19/17 07:00 15:00 23:00 07:00 15:00 23:00 Intake Total 1180 ml 960 ml 250 ml 220 ml Balance 1180 ml 960 ml 250 ml 220 ml Intake Oral 780 ml 960 ml 250 ml 120 ml IV Total 100 ml Packed Cells 400 ml # Voids 2 7 2 # Bowel Movements 5 0 Result Diagram: 10/19/17 0502 10/19/17 0502 Imaging Last Impressions Abdomen/Pelvis CT 10/15/17 1838 Signed Impressions: Service Date/Time: Sunday, October 15, 2017 20:29 - CONCLUSION: Persistent and worsening acute/active Crohn's. Please see above. No abscess or perforation. Small ascites not significantly changed. Oc Haq MD Objective Remarks GENERAL: No distress. SKIN: No rashes, ecchymoses or lesions. Cool and dry. HEAD: Atraumatic. Normocephalic. No temporal or scalp tenderness. EYES: No scleral icterus. No injection or drainage. ENT: Nose without bleeding, purulent drainage or septal hematoma. Airway patent. NECK: Trachea midline. No JVD Supple, nontender, no meningeal signs. CARDIOVASCULAR: Regular rate and rhythm without murmurs, gallops, or rubs. RESPIRATORY: Clear to auscultation. Breath sounds equal bilaterally. No wheezes , rales, or rhonchi. GASTROINTESTINAL: Abdominal tenderness diffusely more so at lower abdomen. No guarding. MUSCULOSKELETAL: Extremities without clubbing, cyanosis, or edema.No calf tenderness. NEUROLOGICAL: Awake and alert. Motor and sensory grossly within normal limits. Normal speech. Medications and IVs Current Medications Medications (Trade) Dose Ordered Sig/Vikki Route Start Time Stop Time Status Last Admin (NS Flush) 2 ml UNSCH PRN IV FLUSH 10/15/17 21:30 10/16/17 04:41 (NS Flush) 2 ml BID IV FLUSH 10/16/17 09:00 10/19/17 08:56 (Zofran Inj) 4 mg Q6H PRN IVP 10/15/17 21:30 10/16/17 12:39 (Tylenol) 650 mg Q6H PRN PO 10/15/17 21:30 ([place] 5-325 Mg) 1 tab Q4H PRN PO 10/15/17 21:30 10/18/17 13:08 (Pentasa Sr) 1,000 mg QID PO 10/16/17 09:00 10/19/17 08:48 (Protonix) 40 mg DAILY PO 10/17/17 09:00 10/19/17 08:49 (Aldactone) 50 mg DAILY PO 10/17/17 09:00 10/19/17 09:04 (Duoneb Neb) 1 ampule Q4HR NEB PRN NEB 10/16/17 11:45 10/19/17 07:46 (SoluCORTEF INJ) 100 mg Q8H IV PUSH 10/16/17 16:00 10/19/17 08:56 (Xanax) 0.5 mg Q6H PRN PO 10/17/17 12:30 10/19/17 04:02 (Lasix Inj) 20 mg Q12HR IV PUSH 10/18/17 11:15 10/19/17 08:56 Potassium Chloride 100 ml @ 50 mls/hr Q12HR IV 10/18/17 11:15 10/19/17 08:58 ([place] 10-325 Mg) 1 tab Q4H PRN PO 10/18/17 13:45 10/19/17 08:50 Lactated Ringer's 1,000 ml @ 30 mls/hr Q24H PRN IV 10/19/17 03:15 10/22/17 03:14 (Betadine 5% Antisepsis Kit) 1 applic [employer] PRN EACH NARE 4/12/18 03:15 10/22/17 03:14 (Chlorhexidine 2% Cloth) 3 pack [employer]MENT[employer] SCI[employer]IST PRN TOPICAL 10/19/17 03:15 10/22/17 03:14 Cefazolin Sodium 1000 mg/Sodium Chloride 100 ml @ 200 mls/hr [employer] SCI[employer]IST IV 10/19/17 07:30 10/22/17 07:29 (K-Lyte Cl Eff) 50 meq ONCE ONCE PO 10/19/17 12:00 10/19/17 12:01 UNV A/P Assessment and Plan Acute active Crohn's disease exacerbation Colorectal surgery consult appreciated. - Anticipate surgery later today. - continue Zosyn. - continue steroids with tapering at dc. - Pentasa. - pain control. Anemia/ thrombocytopenia Suspect s/t underlying liver condition. - follow CBC and transfuse as needed. Liver cirrhosis/ portal htn S/p TIPS with stent. - continue Aldactone. - Lasix per surgery. Anxiety Chronic. - Increase frequency of Xanax. Hypokalemia/ hypomagnesemia/hyponatremia Secondary to decreased p.o. intake. - Replete with IV and p.o. supplementation and monitor. - repeat labs in AM. DVT prophylaxis with SCDs Discharge Planning Awaiting surgery Francis Levi DO Oct 19, 2017 12:00
[2017-10-19] MEDS: MAGNESIUM SULFATE 1 GM PREMIX 100 ML IV SCH ×2 (12:22→12:52)
[2017-10-19] MEDS ORDERED: ACETAMINOPHEN 1000 MG/100 ML 100 ML IV ONE (15:40)
[2017-10-19] MEDS ORDERED: SUGAMMADEX SODIUM 200 MG/2 ML VIAL IV PUSH ONE (15:40)
[2017-10-19 18:42] LABS: HEMATOCRIT 28.5 % (39.0-51.0); HEMOGLOBIN 9.5 GM/DL (13.0-17.0); MEAN CELL VOLUME 87.6 FL (80.0-100.0); MEAN CORPUSCULAR HEMOGLOBIN 29.4 PG (27.0-34.0); MEAN CORPUSCULAR HGB CONC 33.5 % (32.0-36.0); MEAN PLATELET VOLUME 8.4 FL (7.0-11.0); PLATELET COUNT 96 TH/MM3 (150-450); RED BLOOD COUNT 3.25 MIL/MM3 (4.50-5.90); RED CELL DISTRIBUTION WIDTH 16.1 % (11.6-17.2); WHITE BLOOD COUNT 21.2 TH/MM3 (4.0-11.0)
[2017-10-19 18:52] LABS: INTERNATIONAL NORMALIZED RATIO 1.4 RATIO; PROTHROMBIN TIME - PATIENT 14.1 SEC (9.8-11.6)
[2017-10-19] MEDS ORDERED: ENALAPRILAT 1.25 MG/ML VIAL IV PUSH PRN (19:15)
[2017-10-19] MEDS ORDERED: NALOXONE HCL 0.4 MG/ML AMP IV PUSH PRN (19:15)
[2017-10-19] MEDS ORDERED: ONDANSETRON HCL 4 MG/2 ML VIAL IV PUSH PRN (19:15)
[2017-10-19] MEDS ORDERED: Post-op Orders (for Pharmacy) XX ONE (19:15)
[2017-10-19] MEDS ORDERED: BENZOCAINE 6 MG/MENTHOL 10 MG LOZENGE BUCCAL PRN (19:15)
[2017-10-19] MEDS ORDERED: POTASSIUM CHLOR 40 MEQ PREMIX 100 ML IV PRN (19:15)
[2017-10-19] MEDS ORDERED: ENALAPRILAT 2.5 MG/2 ML VIAL IV PUSH PRN (19:15)
[2017-10-19] MEDS ORDERED: ACETAMINOPHEN 325 MG TAB PO PRN (19:15)
[2017-10-19] MEDS ORDERED: DO NOT ADM ANY ANTICOAGULANT DRUGS PRN (19:20)
[2017-10-19] MEDS ORDERED: *RESP: ALBUTEROL 2.5 MG/3 ML NEB (PRN) PERIprocedural Use ONLY NEB ONE (19:30)
[2017-10-19] MEDS ORDERED: *morphine SULFATE 4 MG/ML PERIprocedure ONLY ONE ×3 (19:45→20:07)
[2017-10-19 19:46] LABS: BICARBONATE 18.9 MEQ/L (21.0-32.0); CALCIUM 7.3 MG/DL (8.5-10.1); CREATININE 0.7 MG/DL (0.60-1.30)
[2017-10-19] MEDS ORDERED: MIDAZOLAM HCL 2 MG/2 ML VIAL ONE (19:58)
[2017-10-19] MEDS ORDERED: MORPHINE SULFATE 4 MG/ML INJ ONE (19:58)
[2017-10-19] MEDS: D5-NS + KCL 20 MEQ INJ 1,000 ML IV SCH (20:00)
[2017-10-19 20:04] LABS: CALCIUM-PROTEIN CORRECTED 8.7 MG/DL (8.5-10.1); TOTAL PROTEIN 4.6 GM/DL (6.4-8.2)
[2017-10-19] MEDS: MORPHINE SULFATE 30 MG/30 ML PCA IV SCH (20:50)
[2017-10-19] MEDS: METOCLOPRAMIDE HCL 10 MG/2 ML VIAL IVS SCH (21:00)
[2017-10-19] MEDS: metroNIDAZOLE 500 MG INJ 100 ML IV SCH (21:00)
[2017-10-19] MEDS ORDERED: RESP: ALBUTEROL 2.5 MG/IPRATROPIUM 0.5 MG NEB (PRN) NEB (21:15)
[2017-10-19] MEDS: POTASSIUM CHLOR 20 MEQ PREMIX 100 ML IV PRN (22:00)
[2017-10-19] MEDS: PCA - TOTAL MG MORPHINE DELIVERED PER SHIFT SCH (23:00)
[2017-10-19] MEDS: RESP: ALBUTEROL 2.5 MG/IPRATROPIUM 0.5 MG NEB (SCH) NEB (23:44)
[2017-10-20] VITALS (28 sets, daily range): BP systolic 129–150; BP diastolic 72–88; PULSE 75–99; RESP 18–20; TEMP 98.1–98.9; O2SAT 89–94
[2017-10-20] MEDS: RESP: ALBUTEROL 2.5 MG/IPRATROPIUM 0.5 MG NEB (SCH) NEB ×6 (03:44→23:24)
[2017-10-20] MEDS: metroNIDAZOLE 500 MG INJ 100 ML IV SCH ×2 (04:24→13:00)
[2017-10-20 05:08] LABS: AUTOMATED NEUTROPHIL # 24.1 TH/MM3 (1.8-7.7); BASOPHIL # 0.1 TH/MM3 (0-0.2); BASOPHIL % 0.2 % (0.0-2.0); BICARBONATE 21.3 MEQ/L (21.0-32.0); CALCIUM 7.6 MG/DL (8.5-10.1); CREATININE 0.74 MG/DL (0.60-1.30); HEMATOCRIT 32.1 % (39.0-51.0); HEMOGLOBIN 10.7 GM/DL (13.0-17.0); LYMPH % 5.8 % (9.0-44.0); LYMPHOCYTE # 1.7 TH/MM3 (1.0-4.8); MAGNESIUM 1.9 MG/DL (1.5-2.5); MEAN CELL VOLUME 87.3 FL (80.0-100.0); MEAN CORPUSCULAR HEMOGLOBIN 29.3 PG (27.0-34.0); MEAN CORPUSCULAR HGB CONC 33.5 % (32.0-36.0); MEAN PLATELET VOLUME 8.5 FL (7.0-11.0); MONO % 11.6 % (0.0-8.0); MONOCYTE # 3.4 TH/MM3 (0-0.9); NEUT % 82.4 % (16.0-70.0); PLATELET COUNT 127 TH/MM3 (150-450); RED BLOOD COUNT 3.67 MIL/MM3 (4.50-5.90); RED CELL DISTRIBUTION WIDTH 16.4 % (11.6-17.2); WHITE BLOOD COUNT 29.2 TH/MM3 (4.0-11.0)
[2017-10-20] MEDS: POTASSIUM CHLOR 20 MEQ PREMIX 100 ML IV PRN (05:57)
[2017-10-20] MEDS: D5-NS + KCL 20 MEQ INJ 1,000 ML IV SCH (06:00)
[2017-10-20] MEDS: PCA - TOTAL MG MORPHINE DELIVERED PER SHIFT SCH ×3 (06:00→22:00)
[2017-10-20 08:10] LABS: BANDS 8 % (0-6); KERATOCYTES OCC (NORMAL); LYMPHOCYTES 7 % (9-44); METAMYELOCYTES 2 % (0-1); MONOCYTES 9 % (0-8); NEUTROPHIL # MANUAL DIFF 24.5 TH/MM3 (1.8-7.7); OVALOCYTES 1+ (NORMAL); POLYS (SEG NEUTROPHILS) 74 % (16-70)
[2017-10-20] MEDS: PANTOPRAZOLE SOD 40 MG DELAYED RELEASE TAB PO SCH ×2 (09:00→09:51)
[2017-10-20] MEDS: SODIUM CHLORIDE 0.9% FLUSH 10 ML FLUSH IV FLUSH SCH ×2 (09:00→20:32)
[2017-10-20] MEDS: D5-1/2 NS + KCL 30 MEQ INJ 1,000 ML IV SCH ×2 (09:47→18:15)
[2017-10-20] MEDS: POTASSIUM CHLOR 20 MEQ PREMIX 100 ML IV SCH ×2 (09:47→20:31)
[2017-10-20] MEDS: HYDROCORTISONE SOD SUCCINATE 100 MG VIAL IV PUSH SCH ×2 (09:48→20:31)
[2017-10-20] MEDS: PANTOPRAZOLE SODIUM 40 MG VIAL IVP SCH (09:49)
[2017-10-20] MEDS: FUROSEMIDE 20 MG/2 ML VIAL IV PUSH SCH ×2 (09:49→20:31)
[2017-10-20] MEDS: SPIRONOLACTONE 50 MG TAB PO SCH (09:51)
[2017-10-20] MEDS: METOCLOPRAMIDE HCL 10 MG/2 ML VIAL IVS SCH ×2 (09:51→20:32)
[2017-10-20] MEDS: MORPHINE SULFATE 30 MG/30 ML PCA IV SCH (13:04)
--- NOTE | 2017-10-20 16:32 | HHI.PR ---
Subjective Remarks patient starving - "ready to eat" passed some soft liquid stools Objective Vitals Vital Signs Date Time Temp Pulse Resp B/P (MAP) Pulse Ox O2 Delivery O2 Flow Rate FiO2 10/20/17 15:20 98.6 80 18 141/88 (105) 94 10/20/17 13:04 18 10/20/17 11:15 98.9 84 20 136/81 (99) 89 10/20/17 09:15 94 Nasal Cannula 2.00 10/20/17 07:00 98.7 75 18 148/76 (100) 92 10/20/17 06:23 86 10/20/17 06:00 20 10/20/17 05:02 93 10/20/17 04:00 88 10/20/17 03:21 98.1 83 20 150/81 (104) 92 10/20/17 03:00 81 10/20/17 02:00 78 10/20/17 01:08 78 10/20/17 00:00 76 10/19/17 23:48 97 Nasal Cannula 2.00 10/19/17 23:03 98.0 81 20 155/91 (112) 95 10/19/17 23:00 73 10/19/17 23:00 20 10/19/17 22:31 97.8 79 20 158/87 (110) 97 10/19/17 22:07 97.4 86 12 146/83 (104) 96 Nasal Cannula 2 10/19/17 22:00 86 14 145/83 (103) 99 Nasal Cannula 2 10/19/17 21:45 79 15 145/83 (103) 99 Nasal Cannula 2 10/19/17 21:30 90 15 145/83 (103) 93 Nasal Cannula 4 10/19/17 21:15 87 15 152/85 (107) 91 Nasal Cannula 4 10/19/17 21:00 86 15 171/81 (111) 94 Nasal Cannula 4 10/19/17 20:50 16 10/19/17 20:45 81 15 157/84 (108) 90 Simple Mask 6 10/19/17 20:30 83 14 151/75 (100) 89 Simple Mask 6 10/19/17 20:15 79 14 152/83 (106) 92 Nasal Cannula 4 10/19/17 20:00 80 12 162/78 (106) 89 Simple Mask 6 10/19/17 19:45 77 12 149/80 (103) 91 Simple Mask 6 10/19/17 19:30 77 14 156/84 (108) 98 Nasal Cannula 4 10/19/17 19:17 96.7 77 12 158/83 (108) 97 Simple Mask 10 I/O 10/19/17 10/19/17 10/19/17 10/20/17 10/20/17 10/20/17 07:00 15:00 23:00 07:00 15:00 23:00 Intake Total 250 ml 471 ml 2480 ml 320 ml Output Total 1135 ml 1845 ml Balance 250 ml 471 ml 1345 ml -1525 ml Intake Oral 250 ml 120 ml 480 ml 120 ml IV Total 351 ml 2000 ml 200 ml Output Urine Total 975 ml 1700 ml Drainage Total 60 ml 145 ml Estimated Blood Loss 100 ml # Voids 2 # Bowel Movements 0 Result Diagram: 10/20/17 0411 10/20/17 041 Imaging Last Impressions Abdomen/Pelvis CT 10/15/17 1838 Signed Impressions: Service Date/Time: Sunday, October 15, 2017 20:29 - CONCLUSION: Persistent and worsening acute/active Crohn's. Please see above. No abscess or perforation. Small ascites not significantly changed. Oc Haq MD Objective Remarks awake and alert, no acute distress anciteric neck supple chest/lungs- no retractions, few inspiratory wheezes regular rhythm abdomen - + bowel sounds, abdominal binder in place, LALI bulb + scrotal swelling guerin in place extremities no edema Procedures 10/19- explore lap with small bowel resection Urinary Catheter: Yes Assessment to: Continue Guerin insert reason: Surgical/Invasive Proced Date of Insertion: Oct 19, 2017 A/P Assessment and Plan 52 years old male S/P explore lap/SB resection 10/19 Acute active Crohn's disease exacerbation - continue Zosyn. - continue steroids - Pentasa. - pain control. - Dr Lane - Advance diet per CRS COPD exacerbation - some wheezing on exam- but comfortable - chronic smoker - patient on steroids for above give scheduled duonebs then q 2 prn - at home on MDIs - will do a walk test prior to DC Anemia/ thrombocytopenia Suspect s/t underlying liver condition. - follow CBC and transfuse as needed. Liver cirrhosis/ portal htn anasarca S/p TIPS with stent. - continue Aldactone. - Lasix per surgery. Anxiety Chronic. - Increase frequency of Xanax. Hypokalemia/ hypomagnesemia/hyponatremia Secondary to decreased p.o. intake. - Replete with IV and p.o. supplementation and monitor. - DVT prophylaxis with SCDs Discharge Planning -Increase activity Cris Avina MD Oct 20, 2017 16:32
[2017-10-20] MEDS: ALBUMIN 25% INJ 100 ML IV SCH (19:49)
[2017-10-20] MEDS: ALPRAZolam 0.5 MG TAB PO PRN (20:35)
--- NOTE | 2017-10-20 21:26 | HHI.PR ---
Subjective Remarks C/R Surg POD #1 Pt known from prev adm UO good LALI moderate Objective - Vital Signs Date Time Temp Pulse Resp B/P (MAP) Pulse Ox O2 Delivery O2 Flow Rate FiO2 10/20/17 20:25 93 Nasal Cannula 2.00 10/20/17 18:00 90 10/20/17 15:20 98.6 18 141/88 (105) Result Diagram: 10/20/1741010/20/17410 Objective Remarks PE alert Abd - full, soft, edema 4+ wound dry A/P Assessment and Plan Imp: Crohn's ds, stable post-op OOB start PO decr IVF Ashwin Lane MD Oct 20, 2017 21:26
[2017-10-21] VITALS (31 sets, daily range): BP systolic 115–149; BP diastolic 65–83; PULSE 72–114; RESP 18–22; TEMP 98–98.2; O2SAT 90–96
[2017-10-21] MEDS: RESP: ALBUTEROL 2.5 MG/IPRATROPIUM 0.5 MG NEB (SCH) NEB ×6 (03:07→23:36)
[2017-10-21 05:06] LABS: AUTOMATED NEUTROPHIL # 18.4 TH/MM3 (1.8-7.7); BASOPHIL # 0.1 TH/MM3 (0-0.2); BASOPHIL % 0.4 % (0.0-2.0); HEMATOCRIT 26.4 % (39.0-51.0); HEMOGLOBIN 8.8 GM/DL (13.0-17.0); LYMPH % 5.9 % (9.0-44.0); LYMPHOCYTE # 1.3 TH/MM3 (1.0-4.8); MEAN CELL VOLUME 87.7 FL (80.0-100.0); MEAN CORPUSCULAR HEMOGLOBIN 29.4 PG (27.0-34.0); MEAN CORPUSCULAR HGB CONC 33.5 % (32.0-36.0); MEAN PLATELET VOLUME 8.8 FL (7.0-11.0); MONO % 7.9 % (0.0-8.0); MONOCYTE # 1.7 TH/MM3 (0-0.9); NEUT % 85.8 % (16.0-70.0); PLATELET COUNT 84 TH/MM3 (150-450); RED BLOOD COUNT 3.01 MIL/MM3 (4.50-5.90); RED CELL DISTRIBUTION WIDTH 16.5 % (11.6-17.2); WHITE BLOOD COUNT 21.5 TH/MM3 (4.0-11.0)
[2017-10-21] MEDS: PCA - TOTAL MG MORPHINE DELIVERED PER SHIFT SCH (05:54)
[2017-10-21 07:21] LABS: KERATOCYTES OCC (NORMAL); OVALOCYTES 1+ (NORMAL)
[2017-10-21 08:03] LABS: BICARBONATE 26.1 MEQ/L (21.0-32.0); CALCIUM 7.7 MG/DL (8.5-10.1); CREATININE 0.67 MG/DL (0.60-1.30)
[2017-10-21] MEDS: SODIUM CHLORIDE 0.9% FLUSH 10 ML FLUSH IV FLUSH SCH ×2 (09:00→19:54)
[2017-10-21] MEDS: PANTOPRAZOLE SODIUM 40 MG VIAL IVP SCH (09:00)
[2017-10-21] MEDS: POTASSIUM CHLOR 20 MEQ PREMIX 100 ML IV SCH ×2 (09:04→19:54)
[2017-10-21] MEDS: PANTOPRAZOLE SOD 40 MG DELAYED RELEASE TAB PO SCH (09:05)
[2017-10-21] MEDS: ALBUMIN 25% INJ 100 ML IV SCH (09:05)
[2017-10-21] MEDS: SPIRONOLACTONE 50 MG TAB PO SCH (09:06)
[2017-10-21] MEDS: METOCLOPRAMIDE HCL 10 MG/2 ML VIAL IVS SCH ×2 (09:06→19:52)
[2017-10-21] MEDS: HYDROCORTISONE SOD SUCCINATE 100 MG VIAL IV PUSH SCH ×2 (09:07→19:53)
[2017-10-21] MEDS: FUROSEMIDE 20 MG/2 ML VIAL IV PUSH SCH (09:07)
[2017-10-21] MEDS: ACETAMINOPHEN/HYDROcodone 325 MG/5 MG TAB PO PRN ×4 (11:46→23:51)
--- NOTE | 2017-10-21 11:51 | HHI.PR ---
Subjective Remarks No N or V. Denies SOB or chest pain. O2 sats decreased to 70's this AM. On mask now with sats 90's. Objective Vital Signs Date Time Temp Pulse Resp B/P (MAP) Pulse Ox O2 Delivery O2 Flow Rate FiO2 10/21/17 09:01 98.0 92 18 136/83 (100) 90 10/21/17 09:01 90 Nasal Cannula 5.00 10/21/17 07:01 89 10/21/17 06:00 85 10/21/17 05:54 18 10/21/17 05:00 98 10/21/17 04:00 Nasal Cannula 2.00 10/21/17 04:00 94 10/21/17 04:00 98.1 94 18 139/70 (93) 94 10/21/17 03:00 98 10/21/17 02:00 88 10/21/17 01:00 98 10/21/17 00:00 110 10/21/17 00:00 98.2 110 20 115/65 (82) 93 10/20/17 23:00 98 10/20/17 22:00 18 10/20/17 22:00 88 10/20/17 21:00 90 10/20/17 20:25 93 Nasal Cannula 2.00 10/20/17 20:00 Nasal Cannula 2.00 10/20/17 20:00 98.4 99 20 129/72 (91) 93 10/20/17 20:00 99 10/20/17 18:00 90 10/20/17 17:00 96 10/20/17 16:00 82 10/20/17 15:20 98.6 80 18 141/88 (105) 94 10/20/17 15:00 93 10/20/17 14:00 84 10/20/17 13:04 18 10/20/17 13:00 94 10/20/17 12:00 96 I/O 10/20/17 10/20/17 10/20/17 10/21/17 10/21/17 10/21/17 07:00 15:00 23:00 07:00 15:00 23:00 Intake Total 320 ml 480 ml 912 ml Output Total 1845 ml 2100 ml 2050 ml Balance -1525 ml -1620 ml -1138 ml Intake Oral 120 ml 480 ml IV Total 200 ml 912 ml Output Urine Total 1700 ml 2000 ml 2000 ml Drainage Total 145 ml 100 ml 50 ml # Bowel Movements 0 Result Diagram: 10/21/17 0449 10/21/17 0702 Objective Remarks VS-S Abd: flat,wound clean. LALI serosanguinous. Assessment and Plan Discharge Planning Stable POD#2 Check ABG and CxR stat. D/C Albumin. Continue Lasix. Start Oc Knutson MD Oct 21, 2017 11:51
--- NOTE | 2017-10-21 12:12 | RADRPT ---
EXAM DATE/TIME: 10/21/2017 11:49 [facility] COMPARISON: CHEST SINGLE AP, June 07, 2017, 2:41. INDICATIONS : Shortness of breath. Decrease STATS. MEDICAL HISTORY : Pancreatitis. Hernia, hiatal. Gastroesophageal reflux disease.Crohn;s. SURGICAL HISTORY : Colon resection. ENCOUNTER: Subsequent ACUITY: 1 day PAIN SCORE: 0/10 LOCATION: Bilateral chest FINDINGS: Significant deterioration in the appearance of the chest are perihilar interstitial changes and henrietta l heart size. There is no pneumothorax. There is no pleural effusion. CONCLUSION: Significant variation appearance of the chest. Consideration would include both card iac and noncardiac edema ARDS is suspected. Hernando Rodrigez MD FACR on October 21, 2017 at 12:08 Board Certified Radiologist. This report was verified electronically.
--- NOTE | 2017-10-21 12:34 | HHI.PR ---
Subjective . D/W Dr Rodrigez. CxR reviewed. Significant Pulmonary edema. ABG acceptable on Non rebreather mask. Pt without complaints. Albumin stopped. Continue to diurese with Lasix. I D/W Dr Avina if she needs cardiac enzymes etc. Will keep in 250 on tele . Oc Tierney MD Oct 21, 2017 12:34
--- NOTE | 2017-10-21 15:03 | HHI.PR ---
Subjective Remarks awake and alert no complains of chest discomfort low 02 sats- requiring high 02 CXR done by shows pulmonary edema - patient tolerating po well, no cough, no leg swelling Objective Vitals Vital Signs Date Time Temp Pulse Resp B/P (MAP) Pulse Ox O2 Delivery O2 Flow Rate FiO2 10/21/17 13:01 86 10/21/17 12:07 92 Partial Rebreather 15.00 10/21/17 12:01 94 10/21/17 11:01 92 Non-Rebreather 100 10/21/17 11:01 98.0 87 18 145/80 (101) 92 10/21/17 11:00 82 10/21/17 10:43 94 Partial Rebreather 15.00 10/21/17 10:20 95 Non-Rebreather 15.00 100 10/21/17 10:00 72 10/21/17 09:01 98.0 92 18 136/83 (100) 90 10/21/17 09:01 90 Nasal Cannula 5.00 10/21/17 09:00 76 10/21/17 08:00 74 10/21/17 07:01 89 10/21/17 06:00 85 10/21/17 05:54 18 10/21/17 05:00 98 10/21/17 04:00 Nasal Cannula 2.00 10/21/17 04:00 94 10/21/17 04:00 98.1 94 18 139/70 (93) 94 10/21/17 03:00 98 10/21/17 02:00 88 10/21/17 01:00 98 10/21/17 00:00 110 10/21/17 00:00 98.2 110 20 115/65 (82) 93 10/20/17 23:00 98 10/20/17 22:00 18 10/20/17 22:00 88 10/20/17 21:00 90 10/20/17 20:25 93 Nasal Cannula 2.00 10/20/17 20:00 Nasal Cannula 2.00 10/20/17 20:00 98.4 99 20 129/72 (91) 93 10/20/17 20:00 99 10/20/17 18:00 90 10/20/17 17:00 96 10/20/17 16:00 82 10/20/17 15:20 98.6 80 18 141/88 (105) 94 I/O 10/20/17 10/20/17 10/20/17 10/21/17 10/21/17 10/21/17 07:00 15:00 23:00 07:00 15:00 23:00 Intake Total 320 ml 480 ml 912 ml 200 ml Output Total 1845 ml 2100 ml 2050 ml Balance -1525 ml -1620 ml -1138 ml 200 ml Intake Oral 120 ml 480 ml IV Total 200 ml 912 ml 200 ml Output Urine Total 1700 ml 2000 ml 2000 ml Drainage Total 145 ml 100 ml 50 ml # Bowel Movements 0 Result Diagram: 10/21/17 0449 10/21/17 0702 Imaging Last Impressions Chest X-Ray 10/21/17 0000 Signed Impressions: Service Date/Time: Saturday, October 21, 2017 11:49 - CONCLUSION: Significant variation appearance of the chest. Consideration would include both cardiac and noncardiac edema ARDS is suspected. Hernando Rodrigez MD FACR Abdomen/Pelvis CT 10/15/17 1838 Signed Impressions: Service Date/Time: Sunday, October 15, 2017 20:29 - CONCLUSION: Persistent and worsening acute/active Crohn's. Please see above. No abscess or perforation. Small ascites not significantly changed. Oc Haq MD Objective Remarks awake and alert, on 100% NRB anicteric neck supple chest/lungs- no retractions, no wheezes, + basal rales regular rhythm abdomen - + bowel sounds, abdominal binder in place, LALI bulb + scrotal swelling guerin in place extremities no edema Procedures 10/19- explore lap with small bowel resection Urinary Catheter: Yes Assessment to: Continue Guerin insert reason: Measure Accurate Output Date of Insertion: Oct 19, 2017 A/P Assessment and Plan 52 years old male S/P explore lap/SB resection 10/19 Acute active Crohn's disease exacerbation - continue Zosyn. - continue steroids IV steroid per CRS- now on 50 mg q 12 - Pentasa. - pain control. - Dr Lane - Advance diet per CRS Acute respiratory failure with Hypoxemia- likey from volume overload - was getting Albumin + IV steroids Lasix was increased to 40 mg q 12 IV.continue Aldactone po KCL bid BMP in am get a 2D echo COPD exacerbation- no wheezing - chronic smoker - patient on steroids for above give scheduled duonebs then q 2 prn - at home on MDIs - will do a walk test prior to DC Acute Anemia likely from dilution/fluid overload no signs of active bleeding thrombocytopenia- fron cirrhosis - follow CBC and transfuse as needed. Liver cirrhosis/ portal htn anasarca S/p TIPS with stent. - continue Aldactone. - Lasix bid - change to IV up to 40 mg q 12 Anxiety Chronic. - Xanax. Hypokalemia/ hypomagnesemia/hyponatremia - monitor on diuretics - schedule KCL bid - Replete with IV and p.o. supplementation and monitor. - DVT prophylaxis with SCDs Discharge Planning -Increase activity Cris Avina MD Oct 21, 2017 15:03
[2017-10-21] MEDS ORDERED: FUROSEMIDE 20 MG/2 ML VIAL IV PUSH ONE (15:15)
[2017-10-21] MEDS ORDERED: POTASSIUM CHLORIDE 10 MEQ CONTROLLED RELEASE TAB PO ONE (15:15)
[2017-10-21] MEDS: FUROSEMIDE 40 MG/4 ML VIAL IV PUSH SCH (19:52)
[2017-10-21] MEDS: POTASSIUM CHLORIDE 20 MEQ CONTROLLED RELEASE TAB PO SCH (19:55)
[2017-10-21] MEDS: ALPRAZolam 0.5 MG TAB PO PRN (19:55)
[2017-10-22] VITALS (23 sets, daily range): BP systolic 121–145; BP diastolic 59–78; PULSE 82–126; RESP 17–24; TEMP 97.7–98.4; O2SAT 92–98
[2017-10-22] MEDS: D5-1/2 NS + KCL 30 MEQ INJ 1,000 ML IV SCH (02:47)
[2017-10-22] MEDS: RESP: ALBUTEROL 2.5 MG/IPRATROPIUM 0.5 MG NEB (SCH) NEB ×5 (03:10→21:16)
[2017-10-22 07:29] LABS: AUTOMATED NEUTROPHIL # 19.4 TH/MM3 (1.8-7.7); BASOPHIL % 0.2 % (0.0-2.0); HEMATOCRIT 29.4 % (39.0-51.0); HEMOGLOBIN 9.7 GM/DL (13.0-17.0); LYMPH % 7.4 % (9.0-44.0); LYMPHOCYTE # 1.7 TH/MM3 (1.0-4.8); MEAN CELL VOLUME 86.4 FL (80.0-100.0); MEAN CORPUSCULAR HEMOGLOBIN 28.6 PG (27.0-34.0); MEAN CORPUSCULAR HGB CONC 33.1 % (32.0-36.0); MEAN PLATELET VOLUME 8.9 FL (7.0-11.0); MONO % 5.9 % (0.0-8.0); MONOCYTE # 1.3 TH/MM3 (0-0.9); NEUT % 86.5 % (16.0-70.0); PLATELET COUNT 98 TH/MM3 (150-450); RED CELL DISTRIBUTION WIDTH 15.9 % (11.6-17.2); WHITE BLOOD COUNT 22.4 TH/MM3 (4.0-11.0)
[2017-10-22] MEDS: POTASSIUM CHLOR 20 MEQ PREMIX 100 ML IV SCH ×2 (07:42→21:27)
[2017-10-22 07:43] LABS: BICARBONATE 25.8 MEQ/L (21.0-32.0); CALCIUM 7.8 MG/DL (8.5-10.1); CREATININE 0.77 MG/DL (0.60-1.30)
[2017-10-22] MEDS: SPIRONOLACTONE 25 MG TAB PO SCH (07:43)
[2017-10-22] MEDS: ACETAMINOPHEN/HYDROcodone 325 MG/5 MG TAB PO PRN ×4 (07:43→21:24)
[2017-10-22] MEDS: ALPRAZolam 0.5 MG TAB PO PRN ×3 (07:43→22:07)
[2017-10-22] MEDS: POTASSIUM CHLORIDE 20 MEQ CONTROLLED RELEASE TAB PO SCH ×2 (07:43→21:24)
[2017-10-22] MEDS: PANTOPRAZOLE SOD 40 MG DELAYED RELEASE TAB PO SCH (07:43)
[2017-10-22] MEDS: METOCLOPRAMIDE HCL 10 MG/2 ML VIAL IVS SCH ×2 (07:44→21:25)
[2017-10-22] MEDS: FUROSEMIDE 40 MG/4 ML VIAL IV PUSH SCH ×2 (07:44→21:25)
[2017-10-22] MEDS: HYDROCORTISONE SOD SUCCINATE 100 MG VIAL IV PUSH SCH ×2 (07:44→21:26)
[2017-10-22] MEDS: SODIUM CHLORIDE 0.9% FLUSH 10 ML FLUSH IV FLUSH SCH ×2 (07:45→21:00)
--- NOTE | 2017-10-22 07:56 | RADRPT ---
EXAM DATE/TIME: 10/22/2017 07:09 [facility] COMPARISON: CHEST SINGLE AP, October 21, 2017, 11:49. INDICATIONS : Pulmonary edema MEDICAL HISTORY : Pancreatitis. Hernia, hiatal. Gastroesophageal reflux disease.Crohn;s. SURGICAL HISTORY : Colon resection. ENCOUNTER: Subsequent ACUITY: 2 days PAIN SCORE: 0/10 LOCATION: chest FINDINGS: Further deterioration in the appearance of the chest increasing interstitial changes and normal heart size. Differential remains around cardiogenic and noncardiogenic pulmonary edema. There is no pleural effusion. There is no pneumothorax. There is consolidation. CONCLUSION: Further deterioration in the appearance of the chest increasing interstitial changes. Hernando Rodrigez MD FACR on October 22, 2017 at 7:54 Board Certified Radiologist. This report was verified electronically.
[2017-10-22 09:56] LABS: KERATOCYTES OCC (NORMAL); OVALOCYTES 1+ (NORMAL)
--- NOTE | 2017-10-22 10:01 | ECHRPT ---
Indication: HEART FAILURE CONCLUSIONS The transthoracic study is normal by two-dimensional, color flow imaging and Doppler interrogation. BP: / HR: Rhythm: MEASUREMENTS (Male / Female) Normal Values Technical Quality: 2D ECHO LV Diastolic Diameter PLAX 5.4 cm 4.2 - 5.9 / 3.9 - 5.3 cm LV Systolic Diameter PLAX 4.5 cm IVS Diastolic Thickness 1.3 cm 0.6 - 1.0 / 0.6 - 0.9 cm LVPW Diastolic Thickness 0.7 cm 0.6 - 1.0 / 0.6 - 0.9 cm LV Relative Wall Thickness 0.4 M-MODE Aortic Root Diameter MM 3.6 cm AV Cusp Separation MM 2.1 cm DOPPLER Mitral E Point Velocity 95.8 cm/s Mitral A Point Velocity 79.5 cm/s Mitral E to A Ratio 1.2 TR Peak Velocity 274.0 cm/s TR Peak Gradient 30.0 mmHg Right Atrial Pressure 5.0 mmHg Pulmonary Artery Systolic Pressu 35.0 mmHg Right Ventricular Systolic Press 35.0 mmHg FINDINGS LEFT VENTRICLE Normal left ventricular size. Wall thickness is measured at the upper limits of normal. The left ventricular systolic function is low normal with an estimated ejection fraction in the rang e of 50%. RIGHT VENTRICLE Normal right ventricular size and systolic function. LEFT ATRIUM The left atrial size is normal. RIGHT ATRIUM The right atrial size is normal. ATRIAL SEPTUM Normal atrial septal thickness without atrial level shunting by limited color doppler interrogation. AORTA The aortic root and proximal ascending aorta are normal in size on limited imaging. MITRAL VALVE Structurally normal mitral valve. No mitral valve stenosis or regurgitation. AORTIC VALVE Trileaflet aortic valve. No aortic valve stenosis or regurgitation. TRICUSPID VALVE Structurally normal tricuspid valve. No tricuspid valve stenosis or regurgitation. PULMONARY VALVE No pulmonary valve regurgitation or stenosis. VESSELS The inferior vena cava is normal in size. PERICARDIUM No pericardial effusion. Misti Barrett MD, FACC (Electronically Signed) Final Date:22 October 2017 10:00
--- NOTE | 2017-10-22 11:07 | HHI.PR ---
Subjective Remarks awake and alert + BM, tolerating po patient desaturates easily with activity no leg swelling Objective Vitals Vital Signs Date Time Temp Pulse Resp B/P (MAP) Pulse Ox O2 Delivery O2 Flow Rate FiO2 10/22/17 09:35 93 Partial Non-Rebreather 15.00 10/22/17 08:00 86 10/22/17 07:52 93 Partial Rebreather 15.00 10/22/17 07:46 98.1 92 22 139/76 (97) 92 10/22/17 06:00 101 10/22/17 05:00 98 10/22/17 04:00 Non-Rebreather 10/22/17 04:00 102 10/22/17 04:00 98.3 102 20 121/59 (79) 95 10/22/17 03:00 99 10/22/17 02:00 97 10/22/17 01:00 103 10/22/17 00:00 98.4 100 22 129/69 (89) 94 10/22/17 00:00 Non-Rebreather 10/22/17 00:00 100 10/21/17 23:36 96 Partial Rebreather 15.00 10/21/17 23:00 98 10/21/17 22:00 95 10/21/17 21:00 98 10/21/17 20:53 93 Partial Rebreather 15.00 10/21/17 20:00 Non-Rebreather 10/21/17 20:00 98.2 105 22 131/71 (91) 94 10/21/17 20:00 105 10/21/17 18:01 86 10/21/17 17:00 114 10/21/17 16:00 112 10/21/17 15:15 98.0 99 18 149/79 (102) 94 10/21/17 15:00 112 10/21/17 14:00 90 10/21/17 13:01 86 10/21/17 12:07 92 Partial Rebreather 15.00 10/21/17 12:01 94 I/O 10/21/17 10/21/17 10/21/17 10/22/17 10/22/17 10/22/17 07:00 15:00 23:00 07:00 15:00 23:00 Intake Total 912 ml 200 ml 960 ml 1200 ml Output Total 2050 ml 3625 ml 3280 ml Balance -1138 ml 200 ml -2665 ml -2080 ml Intake Oral 960 ml 1200 ml IV Total 912 ml 200 ml Output Urine Total 2000 ml 3525 ml 3200 ml Drainage Total 50 ml 100 ml 80 ml # Bowel Movements 0 2 2 Result Diagram: 10/22/17 0643 10/22/17 0643 Imaging Last Impressions Chest X-Ray 10/22/17 0700 Signed Impressions: Service Date/Time: Sunday, October 22, 2017 07:09 - CONCLUSION: Further deterioration in the appearance of the chest increasing interstitial changes. Hernando Rodrigez MD FACR Abdomen/Pelvis CT 10/15/17 1838 Signed Impressions: Service Date/Time: Sunday, October 15, 2017 20:29 - CONCLUSION: Persistent and worsening acute/active Crohn's. Please see above. No abscess or perforation. Small ascites not significantly changed. Oc Haq MD Objective Remarks awake and alert, on 100% NRB anicteric neck supple chest/lungs- no retractions, basal rales, few rhonchi regular rhythm abdomen - + bowel sounds, abdominal binder in place, LALI bulb + scrotal swelling- decrease guerin in place extremities no edema Procedures 10/19- explore lap with small bowel resection Date of Insertion: Oct 19, 2017 A/P Assessment and Plan 52 years old male S/P explore lap/SB resection 10/19 Acute active Crohn's disease exacerbation - continue Zosyn. - continue steroids IV steroid per CRS- now on 50 mg q 12 - Pentasa. - pain control. - Dr Lane - Advance diet per CRS Acute respiratory failure with Hypoxemia- Persistent high 02 requirement - ? ARDS, non cardiogenic Pulmonary edema- in XR worsening inspite of good diureses and clinically Lasix 40 mg q 12 IV. continue Aldactone po KCL bid get a Pulmonary consult for assistance get CTA to r/o PE with recent surgery check EKG.troponin Hypokalemia- on diuretics replace IV and po- give bolus x 3 COPD exacerbation- some rhonchi - chronic smoker - patient on steroids for above give scheduled duonebs then q 2 prn - at home on MDIs - will need a walk test prior to DC Acute Anemia likely from dilution/fluid overload no signs of active bleeding thrombocytopenia- fron cirrhosis - follow CBC and transfuse as needed. Liver cirrhosis/ portal htn anasarca S/p TIPS with stent. - continue Aldactone. - Lasix bid - change to IV up to 40 mg q 12 Anxiety Chronic. - Xanax. DVT prophylaxis with SCDs Discharge Planning -Increase activity Cris Avina MD Oct 22, 2017 11:07
--- NOTE | 2017-10-22 11:45 | HHI.PR ---
Subjective Remarks No N or V. Stooling. C/O abd pain. Desaturates easily when OOB. Comfortable while in bed. CxR worse. ? ARDS vs pulmonary edema secondary to overload. Large diuresis. D/W Dr Avina. Check CTA,transfer to [facility]. Check 12 lead and enzymes. Objective Vital Signs Date Time Temp Pulse Resp B/P (MAP) Pulse Ox O2 Delivery O2 Flow Rate FiO2 10/22/17 09:35 93 Partial Non-Rebreather 15.00 10/22/17 08:00 86 10/22/17 07:52 93 Partial Rebreather 15.00 10/22/17 07:46 98.1 92 22 139/76 (97) 92 10/22/17 06:00 101 10/22/17 05:00 98 10/22/17 04:00 Non-Rebreather 10/22/17 04:00 102 10/22/17 04:00 98.3 102 20 121/59 (79) 95 10/22/17 03:00 99 10/22/17 02:00 97 10/22/17 01:00 103 10/22/17 00:00 98.4 100 22 129/69 (89) 94 10/22/17 00:00 Non-Rebreather 10/22/17 00:00 100 10/21/17 23:36 96 Partial Rebreather 15.00 10/21/17 23:00 98 10/21/17 22:00 95 10/21/17 21:00 98 10/21/17 20:53 93 Partial Rebreather 15.00 10/21/17 20:00 Non-Rebreather 10/21/17 20:00 98.2 105 22 131/71 (91) 94 10/21/17 20:00 105 10/21/17 18:01 86 10/21/17 17:00 114 10/21/17 16:00 112 10/21/17 15:15 98.0 99 18 149/79 (102) 94 10/21/17 15:00 112 10/21/17 14:00 90 10/21/17 13:01 86 10/21/17 12:07 92 Partial Rebreather 15.00 10/21/17 12:01 94 I/O 10/21/17 10/21/17 10/21/17 10/22/17 10/22/17 4/15/18 07:00 15:00 23:00 07:00 15:00 23:00 Intake Total 912 ml 200 ml 960 ml 1200 ml Output Total 2050 ml 3625 ml 3280 ml Balance -1138 ml 200 ml -2665 ml -2080 ml Intake Oral 960 ml 1200 ml IV Total 912 ml 200 ml Output Urine Total 2000 ml 3525 ml 3200 ml Drainage Total 50 ml 100 ml 80 ml # Bowel Movements 0 2 2 Result Diagram: 10/22/1743 10/22/17642 Objective Remarks VS-S Abd: flat,wound clean. LALI serosanguinous. Labs-OK. BNP elevated Assessment and Plan Assessment and Plan Stable. ARDS vs Pulmonary edema Per Dr Avina. Regular diet Oc Tierney MD Oct 22, 2017 11:45
[2017-10-22] MEDS: POTASSIUM CHLOR 10 MEQ PREMIX 100 ML IV SCH ×3 (13:01→17:19)
[2017-10-22] MEDS ORDERED: POTASSIUM CHLORIDE INJ 30 MEQ in DEXT 5%-NACL 0.45% 1000 ML INJ 1,000 ML IV SCH (14:00)
[2017-10-22] MEDS ORDERED: IOHEXOL 350 MG/ML 10 ML VIAL (for RAD DIAG) IVCONTRAST ONE (15:00)
--- NOTE | 2017-10-22 15:25 | RADRPT ---
EXAM DATE/TIME: 10/22/2017 15:00 [place] COMPARISON: CHEST SINGLE AP, October 22, 2017, 7:09. INDICATIONS : Evaluate for PE, SOB. IV CONTRAST: 60 cc Omnipaque 350 IV RADIATION DOSE: 9.47 CTDIvol (mGy) MEDICAL HISTORY : Cardiovascular disease. Hypertension. Pancreatitis.GERD,Liver disease.Crohns,ascites, gastritis SURGICAL HISTORY : Inguinal hernia repair. Colon resection. ENCOUNTER: Initial ACUITY: 1 day PAIN SCALE: 0/10 LOCATION: chest TECHNIQUE: Volumetric scanning of the chest was performed using a pulmonary embolism protocol MIP images were re constructed. Using automated exposure control and adjustment of the mA and/or kV according to patien t size, radiation dose was kept as low as reasonably achievable to obtain optimal diagnostic quality images. DICOM format image data is available electronically for review and comparison. Follow-up recommendations for detected pulmonary nodules are based at a minimum on nodule size and pa tient risk factors according to Fleischner Society Guidelines. FINDINGS: PULMONARY ARTERIES: No filling defects are seen in the pulmonary arteries through the segmental level. LUNGS: Diffuse interstitial and airspace infiltrates PLEURAE: Small bilateral effusions. MEDIASTINUM: There is good visualization of the great vessels of the middle mediastinum. No evidence of mediastin al or hilar adenopathy/mass. MUSCULOSKELETAL: Within normal limits for patient age. MISCELLANEOUS: TIPS shunt seen in the liver. CONCLUSION: No evidence of pulmonary embolism. Oc Fletcher MD on October 22, 2017 at 15:19 Board Certified Radiologist. This report was verified electronically.
--- NOTE | 2017-10-22 18:46 | MP ---
cc: Ashwin Lane MD DATE OF OPERATION: 10/19/2017 PREOPERATIVE DIAGNOSIS: 1. Crohn disease with high-grade obstruction of the terminal ileum. 2. History of prior Crohn disease. 3. History of hepatic cirrhosis. PROCEDURE PERFORMED: Exploratory laparotomy with resection of the terminal ileum and ascending colon. POSTOPERATIVE DIAGNOSES: 1. Severe Crohn disease of the terminal ileum. 2. Significant hepatic cirrhosis. SURGEON: Ashwin Lane MD BIOMETRIC SCREENER: Carlos A Mccrary MD DESCRIPTION OF PROCEDURE: The patient was placed in the supine position. After adequate general anesthesia, his abdomen was prepped with Betadine solution and draped in the usual sterile fashion. With Dr. Mccrary's assistance, the abdomen was opened through the previous midline incision, taking down some adhesions upon entering the peritoneal cavity. There were very few adhesions actually within the small bowel. Exploration revealed the ileocolonic anastomosis easily identifiable and the proximal 18-24 inches of small bowel were extremely narrowed and thickened consistent with Crohn disease with fat wrapping. The small bowel proximal to this did appear to be chronically obstructed, somewhat thick walled. No other areas of Crohn's were noted in the proximal bowel all the way to the ligament of Treitz. Liver was significantly hardened and consistent with micronodular cirrhosis. No masses were identified. Gallbladder was somewhat contracted, but thin walled and had no stones. Stomach and duodenum were pretty unremarkable. They did not appear to be excessive hypersplenism or portal hypertension, although the mesentery of the omentum had some fairly large veins. First, the ileocecal valve was mobilized off the retroperitoneum, identifying the plane between the mesentery and the duodenum. Dissection proceeded up, freeing up the lesser sac again and reestablishing a plane between the stomach and the transverse colon. After full mobilization, the right ureter was completely identified and preserved. A point was chosen in the right transverse colon for resection and the bowel divided using the GI stapling device. The right colic vessel was taken between Kellys, obtaining hemostasis with Vicryl ties. Dissection then proceeded proximally along the small bowel, taking about 24 inches of the small bowel, which was obviously diseased, with the specimen, getting back to more soft pliable ileum. At this point, the bowel was then divided again with the GIULIANO stapling device. Bowel continuity was then restored by firing the GIULIANO stapler across the antimesenteric ends of the bowel, closing the enterotomy with a TA 60 stapler. Mesenteric defect closed with a running Vicryl suture and a 3-0 Vicryl crotch suture was placed as well. The abdomen was irrigated copiously with normal saline. Adequate hemostasis achieved. Pedro-Ramirez drain was placed down into the pelvis and brought out through a stab wound in the right lower quadrant, secured to the skin with a nylon suture. Midline incision was then closed anatomically in 1 layer using #1 PDS sutures to reapproximate the midline fascia. The subcutaneous tissues were irrigated copiously and the skin closed with a row of surgical ha. Wound area washed with normal saline and dried, sterile dressing of Telfa was applied. The patient tolerated the procedure quite well and was brought to the recovery room in stable condition. MD ASHLEY Duke/SB , 05:56 PM , 06:44 PM
[2017-10-22] MEDS ORDERED: METOCLOPRAMIDE HCL 10 MG/2 ML VIAL IVS PRN (22:15)
[2017-10-22] MEDS: NACL 0.225% IV SCH (23:00)
[2017-10-22] MEDS: POTASSIUM CHLORIDE IV SCH (23:00)
[2017-10-22] MEDS: DEXTROSE 5% IV SCH (23:00)
[2017-10-23] VITALS (10 sets, daily range): BP systolic 113–154; BP diastolic 59–69; PULSE 77–114; RESP 10–27; TEMP 97.6–98.6; O2SAT 91–100
[2017-10-23] MEDS: RESP: ALBUTEROL 2.5 MG/IPRATROPIUM 0.5 MG NEB (SCH) NEB ×6 (01:09→19:26)
[2017-10-23] MEDS: ACETAMINOPHEN/HYDROcodone 325 MG/5 MG TAB PO PRN ×6 (01:28→21:09)
[2017-10-23] MEDS: POTASSIUM CHLORIDE IV SCH (02:00)
[2017-10-23] MEDS: NACL 0.225% IV SCH (02:00)
[2017-10-23] MEDS: DEXTROSE 5% IV SCH (02:00)
[2017-10-23] MEDS: ALPRAZolam 0.5 MG TAB PO PRN ×2 (05:51→17:09)
[2017-10-23] MEDS ORDERED: VANCOMYCIN INJ 950 MG in SODIUM CHLOR 0.9% 250 ML INJ 250 ML IV SCH (09:00)
[2017-10-23] MEDS ORDERED: Vancomycin Consult Pharmacy 1 EA OTHER SCH (09:00)
[2017-10-23] MEDS: FUROSEMIDE 40 MG/4 ML VIAL IV PUSH SCH ×2 (09:38→21:09)
[2017-10-23] MEDS: HYDROCORTISONE SOD SUCCINATE 100 MG VIAL IV PUSH SCH ×2 (09:38→21:09)
[2017-10-23] MEDS: POTASSIUM CHLOR 20 MEQ PREMIX 100 ML IV SCH ×2 (09:39→21:08)
[2017-10-23] MEDS: POTASSIUM CHLORIDE 20 MEQ CONTROLLED RELEASE TAB PO SCH ×2 (09:39→21:08)
[2017-10-23] MEDS: PANTOPRAZOLE SOD 40 MG DELAYED RELEASE TAB PO SCH (09:39)
[2017-10-23] MEDS: SPIRONOLACTONE 25 MG TAB PO SCH (09:39)
[2017-10-23] MEDS: SODIUM CHLORIDE 0.9% FLUSH 10 ML FLUSH IV FLUSH SCH ×2 (09:40→21:00)
[2017-10-23 10:42] LABS: AUTOMATED NEUTROPHIL # 21.2 TH/MM3 (1.8-7.7); BASOPHIL # 0.1 TH/MM3 (0-0.2); BASOPHIL % 0.2 % (0.0-2.0); EOSINOPHIL # 0.2 TH/MM3 (0-0.4); EOSINOPHIL % 0.8 % (0.0-4.0); HEMATOCRIT 32.6 % (39.0-51.0); HEMOGLOBIN 10.7 GM/DL (13.0-17.0); LYMPH % 7.9 % (9.0-44.0); LYMPHOCYTE # 1.9 TH/MM3 (1.0-4.8); MEAN CELL VOLUME 87.9 FL (80.0-100.0); MEAN PLATELET VOLUME 9.2 FL (7.0-11.0); MONOCYTE # 0.7 TH/MM3 (0-0.9); NEUT % 88.1 % (16.0-70.0); PLATELET COUNT 95 TH/MM3 (150-450); RED BLOOD COUNT 3.71 MIL/MM3 (4.50-5.90); RED CELL DISTRIBUTION WIDTH 16.2 % (11.6-17.2)
[2017-10-23 10:54] LABS: ALBUMIN 2.1 GM/DL (3.4-5.0); BICARBONATE 30.3 MEQ/L (21.0-32.0); BLOOD UREA NITROGEN 7 MG/DL (7-18); CALCIUM 7.9 MG/DL (8.5-10.1); CHLORIDE 109 MEQ/L (98-107); CREATININE 0.76 MG/DL (0.60-1.30); GLOMERULAR FILTRATION RATE 108 ML/MIN (>89); GLUCOSE,RANDOM 151 MG/DL (74-106); SODIUM (NA) 146 MEQ/L (136-145)
[2017-10-23 11:07] LABS: ALKALINE PHOSPHATASE 116 U/L (45-117); ALT (GPT) 24 U/L (12-78); AST (GOT) 27 U/L (15-37); TOTAL BILIRUBIN ADULT 1.7 MG/DL (0.2-1.0); TOTAL PROTEIN 4.8 GM/DL (6.4-8.2)
[2017-10-23 11:32] LABS: BANDS 2 % (0-6); KERATOCYTES OCC (NORMAL); LYMPHOCYTES 6 % (9-44); MONOCYTES 2 % (0-8); MYELOCYTES 1 % (0-0); NEUTROPHIL # MANUAL DIFF 22.1 TH/MM3 (1.8-7.7); POLYS (SEG NEUTROPHILS) 89 % (16-70)
[2017-10-23 11:33] LABS: ACANTHOCYTES OCC (NORMAL); OVALOCYTES 1+ (NORMAL); TOXIC GRANULATION 1+ (NORMAL); TOXIC VACUOLATION PRESENT (NONE SEEN)
[2017-10-23] MEDS: PIPERACIL-TAZO 4.5 GM PREMIX 100 ML IV SCH ×3 (12:59→23:00)
[2017-10-23] MEDS: VANCOMYCIN 1,000 MG/NS 250 ML IV SCH ×4 (12:59→23:00)
--- NOTE | 2017-10-23 14:57 | HHI.PR ---
Subjective Remarks The patient was eating lunch. He said the pain medication was working and the anxiety medication was also working. He said if he does not move around too much his pain is controlled. Discussed with nursing. Objective Vitals Vital Signs Date Time Temp Pulse Resp B/P (MAP) Pulse Ox O2 Delivery O2 Flow Rate FiO2 10/23/17 12:00 95 Nasal Cannula 6.00 10/23/17 12:00 97.6 92 10 128/64 (85) 95 10/23/17 12:00 92 10/23/17 08:15 100 Partial Rebreather 15.00 10/23/17 08:00 97.7 91 27 154/64 (94) 100 10/23/17 08:00 100 Partial Non-Rebreather 15.00 10/23/17 08:00 109 10/23/17 04:17 77 12 113/60 (77) 97 10/23/17 04:17 77 10/23/17 04:17 97 Partial Non-Rebreather 15.00 10/23/17 00:18 94 Partial Non-Rebreather 15.00 10/23/17 00:18 98.0 91 13 125/59 (81) 94 10/23/17 00:18 91 10/22/17 21:17 94 Partial Rebreather 15.00 10/22/17 20:47 97.8 101 17 145/78 (100) 95 10/22/17 20:47 95 Partial Non-Rebreather 15.00 10/22/17 20:47 101 10/22/17 18:00 102 10/22/17 17:00 86 10/22/17 16:06 97.7 87 18 140/72 (94) 98 10/22/17 16:00 86 I/O 10/22/17 10/22/17 10/22/17 10/23/17 10/23/17 10/23/17 07:00 15:00 23:00 07:00 15:00 23:00 Intake Total 1200 ml 200 ml 1360 ml 700 ml Output Total 3280 ml 2500 ml 1900 ml Balance -2080 ml 200 ml -1140 ml -1200 ml Intake Oral 1200 ml 640 ml 600 ml IV Total 200 ml 720 ml 100 ml Output Urine Total 3200 ml 2150 ml 1800 ml Drainage Total 80 ml 350 ml 100 ml # Bowel Movements 2 1 0 Result Diagram: 10/23/17 1021 10/23/17 1021 Imaging Last Impressions Chest X-Ray 10/22/17 0700 Signed Impressions: Service Date/Time: Sunday, October 22, 2017 07:09 - CONCLUSION: Further deterioration in the appearance of the chest increasing interstitial changes. Hernando Rodrigez MD FACR CT Angiography 10/22/17 0000 Signed Impressions: Service Date/Time: Sunday, October 22, 2017 15:00 - CONCLUSION: No evidence of pulmonary embolism. Oc Fletcher MD Abdomen/Pelvis CT 10/15/17 1838 Signed Impressions: Service Date/Time: Sunday, October 15, 2017 20:29 - CONCLUSION: Persistent and worsening acute/active Crohn's. Please see above. No abscess or perforation. Small ascites not significantly changed. Oc Haq MD Objective Remarks GENERAL: No distress. SKIN: Incision with ha over abdomen. HEAD: Atraumatic. Normocephalic. No temporal or scalp tenderness. EYES: No scleral icterus. No injection or drainage. ENT: Nose without bleeding, purulent drainage or septal hematoma. Airway patent. NECK: Trachea midline. No JVD Supple, nontender, no meningeal signs. CARDIOVASCULAR: Regular rate and rhythm without murmurs, gallops, or rubs. RESPIRATORY: Clear to auscultation. Breath sounds equal bilaterally. No wheezes , rales, or rhonchi. GASTROINTESTINAL: Nontender. No guarding. MUSCULOSKELETAL: Extremities without clubbing, cyanosis, or edema. NEUROLOGICAL: Awake and alert. Motor and sensory grossly within normal limits. Normal speech. Procedures 10/19- explore lap with small bowel resection Medications and IVs Current Medications Medications (Trade) Dose Ordered Sig/Vikki Route Start Time Stop Time Status Last Admin (NS Flush) 2 ml UNSCH PRN IV FLUSH 10/15/17 21:30 10/16/17 04:41 (NS Flush) 2 ml BID IV FLUSH 10/16/17 09:00 10/23/17 09:40 (Xanax) 0.5 mg Q6H PRN PO 10/17/17 12:30 10/23/17 05:51 Potassium Chloride 100 ml @ 50 mls/hr Q12HR IV 10/18/17 11:15 10/23/17 09:39 (Belt 5-325 Mg) 1 tab Q4H PRN PO 10/19/17 19:15 10/23/17 09:49 (Belt 5-325 Mg) 2 tab Q4H PRN PO 10/19/17 19:15 10/23/17 05:52 (Tylenol) 650 mg Q4H PRN PO 10/19/17 19:15 (Protonix) 40 mg DAILY PO 10/20/17 09:00 10/23/17 09:39 (Zofran Inj) 4 mg Q6H PRN IV PUSH 10/19/17 19:15 (Vasotec Inj) 1.25 mg Q4H PRN IV PUSH 10/19/17 19:15 (Vasotec Inj) 2.5 mg Q6H PRN IV PUSH 10/19/17 19:15 (Chloraseptic Earl) 1 lozenge UNSCH PRN BUCCAL 10/19/17 19:15 (Narcan Inj) 0.4 mg UNSCH PRN IV PUSH 10/19/17 19:15 (Duoneb Neb) 1 ampule Q4HR NEB NEB 10/20/17 00:00 10/23/17 11:09 (Duoneb Neb) 1 ampule Q2HR NEB PRN NEB 10/19/17 21:15 10/19/17 22:00 (Lasix Inj) 40 mg Q12HR IV PUSH 10/21/17 21:00 10/23/17 09:38 (KCl) 20 meq Q12HR PO 10/21/17 21:00 10/23/17 09:39 (Aldactone) 25 mg DAILY PO 10/22/17 09:00 10/23/17 09:39 (SoluCORTEF INJ) 40 mg Q12HR IV PUSH 10/23/17 09:00 10/23/17 09:38 (Reglan Inj) 10 mg Q12HR PRN IVS 10/22/17 22:15 Potassium Chloride 30 meq/ Dextrose/Sodium Chloride 1,015 ml @ 42 mls/hr Q24H IV 10/22/17 23:00 10/23/17 02:00 Pharmacy Profile Note 0 ml @ 0 mls/hr UNSCH OTHER 10/23/17 09:00 Piperacillin Sod/ Tazobactam Sod 100 ml @ 200 mls/hr Q6H IV 10/23/17 11:00 10/23/17 12:59 Vancomycin HCl 1000 mg/Sodium Chloride 250 ml @ 250 mls/hr Q12H IV 10/23/17 11:00 10/23/17 12:59 Miscellaneous Information SPECIFIC LAB TO BE ... ONCE ONCE .XX 10/24/17 22:45 10/24/17 22:46 Date of Insertion: Oct 19, 2017 A/P Assessment and Plan Acute active Crohn's disease exacerbation Colorectal surgery consult appreciated. S/P explore lap/ small bowel resection . - continue steroids. - Pentasa. - pain control. - wound care per surgery. - ADAT. - rehab efforts. - IS. Acute respiratory failure The pt has a history of COPD. CT chest diffuse interstitial and airspace infiltrates. No PE. - continue Lasix 40 mg q 12 IV. - continue Aldactone. - po KCL bid. - on steroids. - Pulmonary consult pending. - vancomycin/ Zosyn started 10/23 to cover for HCAP. Anemia/ thrombocytopenia Suspect s/t underlying liver condition. - follow CBC and transfuse as needed. Liver cirrhosis/ portal htn S/p TIPS with stent. - continue Aldactone. - Lasix IV. Anxiety Chronic. - Increase frequency of Xanax. Hypokalemia/ hypomagnesemia/hyponatremia Secondary to decreased p.o. intake. - Replete with IV and p.o. supplementation and monitor. - repeat labs in AM. DVT prophylaxis with SCDs Discharge Planning Keep in ICU Francis Levi DO Oct 23, 2017 14:57
--- NOTE | 2017-10-23 17:57 | PD.CONS ---
History of Present Illness Service Pulmonary Consult Requested By Reason for Consult Respiratory distress Primary Care Physician No Primary Care Physician Diagnoses: History of Present Illness The patient is a 52-year-old gentleman who came in for surgery. The patient started to have shortness of breath and hypoxia. The chest x-ray did show bilateral infiltrates. The patient currently on broad- spectrum antibiotics. He is also on IV steroids. He did feel a little bit better this afternoon. The attending physician is concerned about possible ARDS. Review of Systems Except as stated in HPI: all other systems reviewed are Neg Past Family Social History Allergies: Coded Allergies: tetanus toxoid, adsorbed (Verified Allergy, Severe, Nausea/Vomiting, ) Physical Exam Vital Signs Vital Signs Date Time Temp Pulse Resp B/P (MAP) Pulse Ox O2 Delivery O2 Flow Rate FiO2 10/23/17 12:00 95 Nasal Cannula 6.00 10/23/17 12:00 97.6 92 10 128/64 (85) 95 10/23/17 12:00 92 10/23/17 08:15 100 Partial Rebreather 15.00 10/23/17 08:00 97.7 91 27 154/64 (94) 100 10/23/17 08:00 100 Partial Non-Rebreather 15.00 10/23/17 08:00 109 10/23/17 04:17 77 12 113/60 (77) 97 10/23/17 04:17 77 10/23/17 04:17 97 Partial Non-Rebreather 15.00 10/23/17 00:18 94 Partial Non-Rebreather 15.00 10/23/17 00:18 98.0 91 13 125/59 (81) 94 10/23/17 00:18 91 10/22/17 21:17 94 Partial Rebreather 15.00 10/22/17 20:47 97.8 101 17 145/78 (100) 95 10/22/17 20:47 95 Partial Non-Rebreather 15.00 10/22/17 20:47 101 10/22/17 18:00 102 Physical Exam GENERAL: This is a well-nourished, well-developed patient, in no apparent distress. SKIN: No rashes, ecchymoses or lesions. Cool and dry. HEAD: Atraumatic. Normocephalic. No temporal or scalp tenderness. EYES: Pupils equal round and reactive. Extraocular motions intact. No scleral icterus. No injection or drainage. ENT: Nose without bleeding, purulent drainage or septal hematoma. Throat without erythema, tonsillar hypertrophy or exudate. Uvula midline. Airway patent. NECK: Trachea midline. No JVD or lymphadenopathy. Supple, nontender, no meningeal signs. CARDIOVASCULAR: Regular rate and rhythm without murmurs, gallops, or rubs. RESPIRATORY: Bilateral crackles and mild wheezing GASTROINTESTINAL: Tender postoperatively MUSCULOSKELETAL: Extremities without clubbing, cyanosis, or edema. No joint tenderness, effusion, or edema noted. No calf tenderness. Negative Homans sign bilaterally. NEUROLOGICAL: Awake and alert. Cranial nerves II through XII intact. Motor and sensory grossly within normal limits. Five out of 5 muscle strength in all muscle groups. Normal speech. Laboratory Laboratory Tests Test 10/22/17 21:57 10/23/17 10:21 Nasal Screen MRSA (PCR) MRSA DETECTED White Blood Count 24.0 Red Blood Count 3.71 Hemoglobin 10.7 Hematocrit 32.6 Mean Corpuscular Volume 87.9 Mean Corpuscular Hemoglobin 29.0 Mean Corpuscular Hemoglobin Concent 33.0 Red Cell Distribution Width 16.2 Platelet Count 95 Mean Platelet Volume 9.2 Neutrophils (%) (Auto) 88.1 Lymphocytes (%) (Auto) 7.9 Monocytes (%) (Auto) 3.0 Eosinophils (%) (Auto) 0.8 Basophils (%) (Auto) 0.2 Neutrophils # (Auto) 21.2 Lymphocytes # (Auto) 1.9 Monocytes # (Auto) 0.7 Eosinophils # (Auto) 0.2 Basophils # (Auto) 0.1 CBC Comment AUTO DIFF Differential Total Cells Counted 100 Neutrophils % (Manual) 89 Band Neutrophils % 2 Lymphocytes % 6 Monocytes % 2 Neutrophils # (Manual) 22.1 Myelocytes 1 Differential Comment FINAL DIFF MANUAL Toxic Granulation 1+ Toxic Vacuolation PRESENT Platelet Estimate LOW Platelet Morphology Comment NORMAL Ovalocytes 1+ Acanthocytes OCC Keratocytes OCC Blood Urea Nitrogen 7 Creatinine 0.76 Random Glucose 151 Total Protein 4.8 Albumin 2.1 Calcium Level 7.9 Alkaline Phosphatase 116 Aspartate Amino Transf (AST/SGOT) 27 Alanine Aminotransferase (ALT/SGPT) 24 Total Bilirubin 1.7 Sodium Level 146 Potassium Level 3.4 Chloride Level 109 Carbon Dioxide Level 30.3 Anion Gap 7 Estimat Glomerular Filtration Rate 108 Result Diagram: 10/23/17 1021 10/23/17 1021 Assessment and Plan Assessment and Plan Hypoxia COPD with possible exacerbation Pulmonary infiltrates the differential includes ARDS versus pulmonary edema versus pneumonic process. No I agree with the broad-spectrum antibiotics. Continue current IV steroids. Continue bronchodilators. Incentive spirometry and early ambulation. Elect to get a follow-up chest x-ray and a BNP. We will make further decisions accordingly. Thank you for this consultation. Raymond Adam MD Oct 23, 2017 17:57
--- NOTE | 2017-10-23 22:26 | HHI.PR ---
Subjective Remarks C/R Surg POD #5 UO good - after lasix LALI moderate debi PO Objective - Vital Signs Date Time Temp Pulse Resp B/P (MAP) Pulse Ox O2 Delivery O2 Flow Rate FiO2 10/23/17 21:02 98.6 108 22 121/63 (82) 93 10/23/17 21:02 Nasal Cannula 6.00 10/21/17 11:01 100 Result Diagram: 10/23/17 1021 10/23/17 1021 Objective Remarks PE alert Abd - full, soft, edema 3+ wound dry, ecchymosis A/P Assessment and Plan Imp: Crohn's ds, less SOB OOB start PO, adv decr IVF Ashwin Lane MD Oct 23, 2017 22:26
[2017-10-23 23:03] LABS: BICARBONATE 30.3 MEQ/L (21.0-32.0); CALCIUM 8.1 MG/DL (8.5-10.1); CREATININE 0.69 MG/DL (0.60-1.30)
[2017-10-24] VITALS (8 sets, daily range): BP systolic 114–138; BP diastolic 58–65; PULSE 82–106; RESP 11–14; TEMP 98–98.9; O2SAT 91–96
[2017-10-24] MEDS: ALPRAZolam 0.5 MG TAB PO PRN ×4 (01:06→20:57)
[2017-10-24] MEDS: ACETAMINOPHEN/HYDROcodone 325 MG/5 MG TAB PO PRN ×5 (01:06→20:58)
[2017-10-24] MEDS: PIPERACIL-TAZO 4.5 GM PREMIX 100 ML IV SCH ×4 (05:15→23:00)
[2017-10-24 05:46] LABS: HEMATOCRIT 28.2 % (39.0-51.0); HEMOGLOBIN 9.4 GM/DL (13.0-17.0); MEAN CELL VOLUME 87.6 FL (80.0-100.0); MEAN CORPUSCULAR HEMOGLOBIN 29.4 PG (27.0-34.0); MEAN CORPUSCULAR HGB CONC 33.5 % (32.0-36.0); MEAN PLATELET VOLUME 9.2 FL (7.0-11.0); PLATELET COUNT 82 TH/MM3 (150-450); RED BLOOD COUNT 3.22 MIL/MM3 (4.50-5.90); RED CELL DISTRIBUTION WIDTH 16.4 % (11.6-17.2); WHITE BLOOD COUNT 23.3 TH/MM3 (4.0-11.0)
[2017-10-24 05:56] LABS: BICARBONATE 30.9 MEQ/L (21.0-32.0); CALCIUM 7.6 MG/DL (8.5-10.1); CREATININE 0.76 MG/DL (0.60-1.30); MAGNESIUM 1.3 MG/DL (1.5-2.5)
--- NOTE | 2017-10-24 08:43 | HHI.PR ---
Subjective Remarks Follow up respiratory failure, electrolyte abnormalities. The patient states that he feels "1/3 better" today. He denies dyspnea. Still coughing. Abdominal pain reasonably well controlled. No nausea/vomiting. Objective Vitals Vital Signs Date Time Temp Pulse Resp B/P (MAP) Pulse Ox O2 Delivery O2 Flow Rate FiO2 10/24/17 04:12 92 Nasal Cannula 6.00 10/24/17 04:12 98.8 85 12 114/62 (79) 92 10/24/17 04:12 85 10/24/17 00:44 91 Nasal Cannula 6.00 10/24/17 00:44 87 10/24/17 00:44 87 12 123/60 (81) 91 10/23/17 21:02 98.6 108 22 121/63 (82) 93 10/23/17 21:02 108 10/23/17 21:02 93 Nasal Cannula 6.00 10/23/17 19:27 93 Nasal Cannula 6.00 10/23/17 18:00 110 10/23/17 16:00 102 10/23/17 16:00 98.0 102 12 115/69 (84) 91 10/23/17 16:00 91 Nasal Cannula 6.00 10/23/17 14:00 114 10/23/17 12:00 92 10/23/17 12:00 95 Nasal Cannula 6.00 10/23/17 12:00 97.6 92 10 128/64 (85) 95 10/23/17 12:00 92 10/23/17 10:49 17 I/O 10/23/17 10/23/17 10/23/17 10/24/17 10/24/17 10/24/17 07:00 15:00 23:00 07:00 15:00 23:00 Intake Total 700 ml 660 ml 420 ml Output Total 1900 ml 2000 ml 2100 ml Balance -1200 ml -1340 ml -1680 ml Intake Oral 600 ml 660 ml 420 ml IV Total 100 ml Output Urine Total 1800 ml 1500 ml 2000 ml Drainage Total 100 ml 500 ml 100 ml # Bowel Movements 0 1 1 Result Diagram: 10/24/17 0450 10/24/17 0450 Imaging Last Impressions Chest X-Ray 10/22/17 0700 Signed Impressions: Service Date/Time: Sunday, October 22, 2017 07:09 - CONCLUSION: Further deterioration in the appearance of the chest increasing interstitial changes. Hernando Rodrigez MD FACR CT Angiography 10/22/17 0000 Signed Impressions: Service Date/Time: Sunday, October 22, 2017 15:00 - CONCLUSION: No evidence of pulmonary embolism. Oc Fletcher MD Abdomen/Pelvis CT 10/15/17 1838 Signed Impressions: Service Date/Time: Sunday, October 15, 2017 20:29 - CONCLUSION: Persistent and worsening acute/active Crohn's. Please see above. No abscess or perforation. Small ascites not significantly changed. Oc Haq MD Objective Remarks General: No acute distress. Heart: Regular rate and rhythm. No murmur. Lungs: Scattered crackles, wheezes. Breathing is nonlabored. Abdomen: Binder in place. Extremities: No lower extremity edema. Psych: Alert and oriented. Procedures 10/19- explore lap with small bowel resection Urinary Catheter: Yes Assessment to: Remove Date of Insertion: Oct 19, 2017 Vascular Central Line Catheter: No A/P Assessment and Plan 1. Acute Crohn's disease exacerbation: S/P exploratory laparotomy with small bowel resection 10/19. Appreciate colorectal surgery recommendations. Continue steroids, Pentasa. Continue pain control, wound care, abdominal binder. Encourage incentive spirometry. 2. Acute respiratory failure: patient has history of COPD. Appreciate pulmonology recommendations. Continue IS, supplemental oxygen, bronchodilators, steroids. Continue antibiotics to cover for healthcare associated pneumonia. 3. Anemia, thrombocytopenia: Likely secondary to underlying liver disease. Monitor labs and transfuse if necessary. 4. Liver cirrhosis, portal hypertension: Status post TIPS procedure. Continue Aldactone, Lasix. 5. Anxiety: Chronic. Continue Xanax. 6. Electrolyte abnormalities: Potassium, magnesium remain low. Supplement potassium IV and p.o. Supplement magnesium IV. Monitor labs. 7. Leukocytosis: Likely secondary to steroids. Monitor labs. 8. DVT prophylaxis: SCDs. Discharge Planning Plan for transfer to medical/surgical floor if okay with colorectal surgery. Delfino Nash MD Oct 24, 2017 08:43
[2017-10-24] MEDS: SODIUM CHLORIDE 0.9% FLUSH 10 ML FLUSH IV FLUSH SCH ×2 (09:00→20:58)
[2017-10-24] MEDS: POTASSIUM CHLOR 20 MEQ PREMIX 100 ML IV SCH ×2 (09:15→20:57)
[2017-10-24] MEDS: MAGNESIUM SULFATE 1 GM PREMIX 100 ML IV SCH ×2 (09:15→12:28)
[2017-10-24] MEDS: HYDROCORTISONE SOD SUCCINATE 100 MG VIAL IV PUSH SCH ×2 (09:16→20:57)
[2017-10-24] MEDS: SPIRONOLACTONE 25 MG TAB PO SCH (09:16)
[2017-10-24] MEDS: PANTOPRAZOLE SOD 40 MG DELAYED RELEASE TAB PO SCH (09:17)
[2017-10-24] MEDS: FUROSEMIDE 40 MG/4 ML VIAL IV PUSH SCH ×2 (09:17→20:57)
[2017-10-24] MEDS: POTASSIUM CHLORIDE 20 MEQ CONTROLLED RELEASE TAB PO SCH ×2 (09:26→20:57)
[2017-10-24] MEDS: RESP: ALBUTEROL 2.5 MG/IPRATROPIUM 0.5 MG NEB (SCH) NEB ×3 (11:36→19:29)
[2017-10-24] MEDS: VANCOMYCIN 1,000 MG/NS 250 ML IV SCH ×4 (12:24→23:00)
[2017-10-24] MEDS ORDERED: MAGNESIUM SULFATE 1 GM PREMIX 100 ML ONE (12:26)
--- NOTE | 2017-10-24 14:29 | HHI.PR ---
Subjective Remarks Feels 60% better today Breathing is greatly improved On less O2 Objective Vital Signs Vital Signs Date Time Temp Pulse Resp B/P (MAP) Pulse Ox O2 Delivery O2 Flow Rate FiO2 10/24/17 09:09 93 Nasal Cannula 6.00 10/24/17 04:12 92 Nasal Cannula 6.00 10/24/17 04:12 98.8 85 12 114/62 (79) 92 10/24/17 04:12 85 10/24/17 00:44 91 Nasal Cannula 6.00 10/24/17 00:44 87 10/24/17 00:44 87 12 123/60 (81) 91 10/23/17 21:02 98.6 108 22 121/63 (82) 93 10/23/17 21:02 108 10/23/17 21:02 93 Nasal Cannula 6.00 10/23/17 19:27 93 Nasal Cannula 6.00 10/23/17 18:00 110 10/23/17 16:00 102 10/23/17 16:00 98.0 102 12 115/69 (84) 91 10/23/17 16:00 91 Nasal Cannula 6.00 I/O 10/23/17 10/23/17 10/23/17 10/24/17 10/24/17 10/24/17 07:00 15:00 23:00 07:00 15:00 23:00 Intake Total 700 ml 660 ml 420 ml 100 ml Output Total 1900 ml 2000 ml 2100 ml Balance -1200 ml -1340 ml -1680 ml 100 ml Intake Oral 600 ml 660 ml 420 ml IV Total 100 ml 100 ml Output Urine Total 1800 ml 1500 ml 2000 ml Drainage Total 100 ml 500 ml 100 ml # Bowel Movements 0 1 1 Gen: NAD Lungs: basilar crackles Heart: S1, S2 Abd: soft Ext: no significant edema Neuro: awake, follows commands Result Diagram: 10/24/17 0450 10/24/17 0450 A/P Assessment and Plan Hypoxia COPD with possible exacerbation Pulmonary infiltrates the differential includes ARDS versus pulmonary edema versus pneumonic process. ABX May consider weaning steroids Duonebs Incentive spirometry and early ambulation. CXR F/u pro bnp Overall much better Possibly able to d/c home in a few days Cat Godwin Oct 24, 2017 14:29
--- NOTE | 2017-10-24 15:04 | RADRPT ---
EXAM DATE/TIME: 10/24/2017 14:35 [facility] COMPARISON: CHEST SINGLE AP, October 22, 2017, 7:09. INDICATIONS : Difficulty breathing. MEDICAL HISTORY : Cardiovascular disease. Hypertension. Pancreatitis.GERD. Liver disease. Crohns. Ascites. Gastritis. SURGICAL HISTORY : Inguinal hernia repair. Colon resection. ENCOUNTER: Subsequent ACUITY: 3 days PAIN SCORE: 0/10 LOCATION: Bilateral chest FINDINGS: A single view of the chest demonstrates persistent airspace disease within the upper lobes and right lower lobe with slight improvement in the left lung consolidation. Osseous structures are intact. CONCLUSION: Multi-lobar consolidation with slight improvement in the left lung. Mauricio Archibald MD on October 24, 2017 at 15:02 Board Certified Radiologist. This report was verified electronically.
--- NOTE | 2017-10-24 15:19 | EKG ---
Date Performed: 10/22/2017 Time Performed: 11:57:54 PTAGE: 52 years EKG: Sinus rhythm . Since the previous tracing, no significant change noted Normal ECG NO PREVIOUS TRACING DOCTOR: Dae Estrella Interpretating Date/Time 10/24/2017 15:14:47
--- NOTE | 2017-10-24 18:47 | HHI.PR ---
Subjective Remarks C/R Surg POD #6 UO good - after lasix LALI moderate debi PO +BM Objective - Vital Signs Date Time Temp Pulse Resp B/P (MAP) Pulse Ox O2 Delivery O2 Flow Rate FiO2 10/24/17 16:00 103 10/24/17 16:00 95 Nasal Cannula 6.00 10/24/17 16:00 98.6 11 115/58 (77) 10/21/17 11:01 100 Result Diagram: 10/24/1744910/24/17 045 Objective Remarks PE alert Abd - full, soft, edema 3+ wound dry, ecchymosis, LALI serous A/P Assessment and Plan Imp: Crohn's ds, less SOB - CXR improved OOB start PO, adv decr IVF PT Ashwin Lane MD Oct 24, 2017 18:47
[2017-10-24] MEDS ORDERED: PHARMACY ORDERED LAB ONE (22:45)
[2017-10-24] MEDS: NACL 0.225% IV SCH (23:00)
[2017-10-24] MEDS: DEXTROSE 5% IV SCH (23:00)
[2017-10-24] MEDS: POTASSIUM CHLORIDE IV SCH (23:00)
[2017-10-25] VITALS (9 sets, daily range): BP systolic 106–142; BP diastolic 54–66; PULSE 76–109; RESP 17–26; TEMP 97.6–98.8; O2SAT 87–99
[2017-10-25] MEDS: ACETAMINOPHEN/HYDROcodone 325 MG/5 MG TAB PO PRN ×5 (01:01→21:11)
[2017-10-25] MEDS: PIPERACIL-TAZO 4.5 GM PREMIX 100 ML IV SCH ×3 (05:00→16:04)
[2017-10-25] MEDS: ALPRAZolam 0.5 MG TAB PO PRN ×2 (05:13→16:04)
[2017-10-25] MEDS: RESP: ALBUTEROL 2.5 MG/IPRATROPIUM 0.5 MG NEB (SCH) NEB ×4 (07:49→21:01)
--- NOTE | 2017-10-25 09:26 | HHI.PR ---
Subjective Remarks Follow-up respiratory failure, electrolyte abnormalities. The patient states that he is feeling better today. Reports bowel movements. States that he is having more abdominal pain at this time and also feels a little bit more short of breath. He attributes these symptoms to stress related to a phone call he just had. Denies nausea or vomiting. Denies chest pain. Objective Vitals Vital Signs Date Time Temp Pulse Resp B/P (MAP) Pulse Ox O2 Delivery O2 Flow Rate FiO2 10/25/17 07:49 99 Nasal Cannula 6.00 10/25/17 04:24 99 17 106/63 (77) 96 10/25/17 04:24 97 Nasal Cannula 6.00 10/25/17 04:24 99 10/25/17 01:22 99 10/25/17 01:22 98 Nasal Cannula 6.00 10/25/17 01:22 98.0 99 26 113/60 (77) 98 10/24/17 20:00 94 Nasal Cannula 6.00 10/24/17 20:00 98.0 106 14 138/60 (86) 94 10/24/17 20:00 106 10/24/17 19:31 96 Nasal Cannula 6.00 10/24/17 16:00 103 10/24/17 16:00 95 Nasal Cannula 6.00 10/24/17 16:00 98.6 103 11 115/58 (77) 95 10/24/17 12:00 98.6 94 13 127/65 (85) 96 10/24/17 12:00 96 Nasal Cannula 6.00 10/24/17 12:00 94 I/O 10/24/17 10/24/17 10/24/17 10/25/17 10/25/17 10/25/17 07:00 15:00 23:00 07:00 15:00 23:00 Intake Total 420 ml 650 ml 480 ml 1100 ml Output Total 2100 ml 1800 ml 2620 ml Balance -1680 ml 650 ml -1320 ml -1520 ml Intake Oral 420 ml 480 ml 1100 ml IV Total 650 ml Output Urine Total 2000 ml 1650 ml 2200 ml Drainage Total 100 ml 150 ml 420 ml # Bowel Movements 1 0 1 Result Diagram: 10/24/17 0450 10/24/17 0450 Imaging Last Impressions Chest X-Ray 10/24/17 0000 Signed Impressions: Service Date/Time: Tuesday, October 24, 2017 14:35 - CONCLUSION: Multi-lobar consolidation with slight improvement in the left lung. Mauricio Archibald MD CT Angiography 10/22/17 0000 Signed Impressions: Service Date/Time: Sunday, October 22, 2017 15:00 - CONCLUSION: No evidence of pulmonary embolism. Oc Fletcher MD Abdomen/Pelvis CT 10/15/17 1838 Signed Impressions: Service Date/Time: Sunday, October 15, 2017 20:29 - CONCLUSION: Persistent and worsening acute/active Crohn's. Please see above. No abscess or perforation. Small ascites not significantly changed. Oc Haq MD Objective Remarks General: No acute distress. Heart: Regular rate and rhythm. No murmur. Lungs: Mild bibasilar crackles. Breathing is nonlabored. Abdomen: Binder in place. Extremities: No lower extremity edema. Psych: Alert and oriented. Procedures 10/19- explore lap with small bowel resection Urinary Catheter: Yes Assessment to: Continue Vega insert reason: Surgical/Invasive Proced Date of Insertion: Oct 19, 2017 Vascular Central Line Catheter: No A/P Assessment and Plan 1. Acute Crohn's disease exacerbation: S/P exploratory laparotomy with small bowel resection 10/19. Appreciate colorectal surgery recommendations. Continue steroids, Pentasa. Continue pain control, wound care, abdominal binder. Encourage incentive spirometry. 2. Acute respiratory failure: Patient has history of COPD. Appreciate pulmonology recommendations. Continue IS, supplemental oxygen, bronchodilators, steroids. Continue antibiotics to cover for healthcare associated pneumonia. Wean supplemental oxygen as tolerated to keep O2 sats greater than 92%. 3. Anemia, thrombocytopenia: Likely secondary to underlying liver disease. Labs are pending today. 4. Liver cirrhosis, portal hypertension: Status post TIPS procedure. Continue Aldactone, Lasix. 5. Anxiety: Chronic. Continue Xanax. 6. Electrolyte abnormalities: Continue supplementation. Labs are pending today. 7. Leukocytosis: Likely secondary to steroids. Labs are pending today. 8. DVT prophylaxis: SCDs. Discharge Planning Transfer to medical/surgical floor today. Delfino Nash MD Oct 25, 2017 09:26
[2017-10-25] MEDS: FUROSEMIDE 40 MG/4 ML VIAL IV PUSH SCH ×2 (09:56→21:05)
[2017-10-25] MEDS: SPIRONOLACTONE 25 MG TAB PO SCH (09:57)
[2017-10-25] MEDS: HYDROCORTISONE SOD SUCCINATE 100 MG VIAL IV PUSH SCH ×2 (09:57→21:05)
[2017-10-25] MEDS: POTASSIUM CHLORIDE 20 MEQ CONTROLLED RELEASE TAB PO SCH ×2 (09:57→21:05)
[2017-10-25] MEDS: PANTOPRAZOLE SOD 40 MG DELAYED RELEASE TAB PO SCH (09:57)
[2017-10-25] MEDS: POTASSIUM CHLOR 20 MEQ PREMIX 100 ML IV SCH ×2 (09:58→21:05)
[2017-10-25] MEDS: VANCOMYCIN 1,000 MG/NS 250 ML IV SCH ×2 (09:58)
[2017-10-25] MEDS: SODIUM CHLORIDE 0.9% FLUSH 10 ML FLUSH IV FLUSH SCH ×2 (09:59→20:52)
[2017-10-25 10:30] LABS: BASOPHIL # 0.1 TH/MM3 (0-0.2); BASOPHIL % 0.6 % (0.0-2.0); EOSINOPHIL # 0.6 TH/MM3 (0-0.4); EOSINOPHIL % 2.7 % (0.0-4.0); HEMATOCRIT 33.5 % (39.0-51.0); LYMPH % 7.6 % (9.0-44.0); LYMPHOCYTE # 1.8 TH/MM3 (1.0-4.8); MEAN CELL VOLUME 88.5 FL (80.0-100.0); MEAN CORPUSCULAR HEMOGLOBIN 29.1 PG (27.0-34.0); MEAN CORPUSCULAR HGB CONC 32.8 % (32.0-36.0); MEAN PLATELET VOLUME 9.5 FL (7.0-11.0); MONO % 2.2 % (0.0-8.0); MONOCYTE # 0.5 TH/MM3 (0-0.9); NEUT % 86.9 % (16.0-70.0); PLATELET COUNT 104 TH/MM3 (150-450); RED BLOOD COUNT 3.78 MIL/MM3 (4.50-5.90); RED CELL DISTRIBUTION WIDTH 16.8 % (11.6-17.2); WHITE BLOOD COUNT 24.2 TH/MM3 (4.0-11.0)
[2017-10-25 10:57] LABS: BICARBONATE 33.5 MEQ/L (21.0-32.0); CALCIUM 7.9 MG/DL (8.5-10.1); CREATININE 0.73 MG/DL (0.60-1.30); MAGNESIUM 1.6 MG/DL (1.5-2.5)
[2017-10-25] MEDS: DEXTROSE 5% IV SCH (16:04)
[2017-10-25] MEDS: POTASSIUM CHLORIDE IV SCH (16:04)
[2017-10-25] MEDS: NACL 0.225% IV SCH (16:04)
[2017-10-25] MEDS ORDERED: POTASSIUM CHLORIDE 10 MEQ CONTROLLED RELEASE TAB PO ONE (16:30)
[2017-10-25] MEDS ORDERED: MAGNESIUM SULFATE 1 GM PREMIX 100 ML IV ONE (16:30)
--- NOTE | 2017-10-25 18:10 | HHI.PR ---
Subjective Remarks better no sob still has abd pain Objective Vital Signs Date Time Temp Pulse Resp B/P (MAP) Pulse Ox O2 Delivery O2 Flow Rate FiO2 10/25/17 16:30 22 10/25/17 16:00 76 10/25/17 16:00 92 Nasal Cannula 3.00 10/25/17 15:00 109 10/25/17 12:00 97.6 96 20 111/58 (75) 90 10/25/17 12:00 92 Nasal Cannula 4.00 10/25/17 12:00 96 10/25/17 08:00 98 10/25/17 08:00 95 Nasal Cannula 6.00 10/25/17 08:00 98.3 95 18 112/63 (79) 95 10/25/17 07:49 99 Nasal Cannula 6.00 10/25/17 04:24 99 17 106/63 (77) 96 10/25/17 04:24 97 Nasal Cannula 6.00 10/25/17 04:24 99 10/25/17 01:22 99 10/25/17 01:22 98 Nasal Cannula 6.00 10/25/17 01:22 98.0 99 26 113/60 (77) 98 10/24/17 20:00 94 Nasal Cannula 6.00 10/24/17 20:00 98.0 106 14 138/60 (86) 94 10/24/17 20:00 106 10/24/17 19:31 96 Nasal Cannula 6.00 I/O 10/24/17 10/24/17 10/24/17 10/25/17 10/25/17 10/25/17 07:00 15:00 23:00 07:00 15:00 23:00 Intake Total 420 ml 650 ml 480 ml 1100 ml 450 ml Output Total 2100 ml 1800 ml 2620 ml Balance -1680 ml 650 ml -1320 ml -1520 ml 450 ml Intake Oral 420 ml 480 ml 1100 ml IV Total 650 ml 450 ml Output Urine Total 2000 ml 1650 ml 2200 ml Drainage Total 100 ml 150 ml 420 ml # Bowel Movements 1 0 1 Result Diagram: 10/25/1744 10/25/17943 Assessment and Plan Assessment and Plan Gen: NAD Lungs: basilar crackles Heart: S1, S2 Abd: soft Ext: no significant edema Neuro: awake, follows commands A/P Assessment and Plan Hypoxia COPD with possible exacerbation Pulmonary infiltrates the differential includes ARDS versus pulmonary edema versus pneumonic process. ABX ? weaning steroids , will defer to primary team Cont Duonebs Incentive spirometry and early ambulation. ok to leave ICU.. no new recs from pulm perspective at this point..he will need f/u imaging in 4- 6 weeks after discharge if the infiltrates dont resolve totally prior to discharge Raymond Adam MD Oct 25, 2017 18:10
[2017-10-25] MEDS ORDERED: PHARMACY ORDERED LAB ONE (22:45)
[2017-10-26] VITALS (9 sets, daily range): BP systolic 104–124; BP diastolic 54–63; PULSE 78–108; RESP 14–19; TEMP 98.1–98.8; O2SAT 90–95
[2017-10-26] MEDS: PIPERACIL-TAZO 4.5 GM PREMIX 100 ML IV SCH ×5 (00:11→22:50)
[2017-10-26] MEDS: VANCOMYCIN 1,000 MG/NS 250 ML IV SCH ×2 (00:11)
[2017-10-26] MEDS: ACETAMINOPHEN/HYDROcodone 325 MG/5 MG TAB PO PRN ×5 (00:23→20:21)
[2017-10-26] MEDS: ALPRAZolam 0.5 MG TAB PO PRN ×3 (00:23→20:20)
[2017-10-26] MEDS: RESP: ALBUTEROL 2.5 MG/IPRATROPIUM 0.5 MG NEB (SCH) NEB ×4 (08:05→21:29)
[2017-10-26] MEDS: PANTOPRAZOLE SOD 40 MG DELAYED RELEASE TAB PO SCH (08:12)
[2017-10-26] MEDS: POTASSIUM CHLORIDE 20 MEQ CONTROLLED RELEASE TAB PO SCH ×2 (08:12→20:20)
[2017-10-26] MEDS: POTASSIUM CHLOR 20 MEQ PREMIX 100 ML IV SCH (08:12)
[2017-10-26] MEDS: SPIRONOLACTONE 25 MG TAB PO SCH (08:12)
[2017-10-26] MEDS: FUROSEMIDE 40 MG/4 ML VIAL IV PUSH SCH ×2 (08:13→20:19)
[2017-10-26] MEDS: HYDROCORTISONE SOD SUCCINATE 100 MG VIAL IV PUSH SCH ×2 (08:13→20:19)
[2017-10-26] MEDS: SODIUM CHLORIDE 0.9% FLUSH 10 ML FLUSH IV FLUSH SCH ×2 (08:14→21:00)
[2017-10-26 09:09] LABS: AUTOMATED NEUTROPHIL # 26.7 TH/MM3 (1.8-7.7); BASOPHIL # 0.1 TH/MM3 (0-0.2); BASOPHIL % 0.2 % (0.0-2.0); EOSINOPHIL % 0.2 % (0.0-4.0); HEMATOCRIT 32.7 % (39.0-51.0); HEMOGLOBIN 10.6 GM/DL (13.0-17.0); LYMPH % 4.6 % (9.0-44.0); LYMPHOCYTE # 1.3 TH/MM3 (1.0-4.8); MEAN CELL VOLUME 88.6 FL (80.0-100.0); MEAN CORPUSCULAR HEMOGLOBIN 28.6 PG (27.0-34.0); MEAN CORPUSCULAR HGB CONC 32.3 % (32.0-36.0); MEAN PLATELET VOLUME 9.8 FL (7.0-11.0); MONO % 2.4 % (0.0-8.0); MONOCYTE # 0.7 TH/MM3 (0-0.9); NEUT % 92.6 % (16.0-70.0); PLATELET COUNT 114 TH/MM3 (150-450); RED BLOOD COUNT 3.69 MIL/MM3 (4.50-5.90); RED CELL DISTRIBUTION WIDTH 16.8 % (11.6-17.2); WHITE BLOOD COUNT 28.8 TH/MM3 (4.0-11.0)
[2017-10-26] MEDS: VANCOMYCIN INJ 1,250 MG in SODIUM CHLOR 0.9% 250 ML INJ 250 ML IV SCH ×2 (12:07→23:34)
[2017-10-26 13:33] LABS: ALBUMIN 1.7 GM/DL (3.4-5.0); ALKALINE PHOSPHATASE 165 U/L (45-117); ALT (GPT) 22 U/L (12-78); AST (GOT) 28 U/L (15-37); BICARBONATE 31.3 MEQ/L (21.0-32.0); BLOOD UREA NITROGEN 12 MG/DL (7-18); CHLORIDE 105 MEQ/L (98-107); CREATININE 0.81 MG/DL (0.60-1.30); GLOMERULAR FILTRATION RATE 100 ML/MIN (>89); GLUCOSE,RANDOM 152 MG/DL (74-106); MAGNESIUM 1.7 MG/DL (1.5-2.5); SODIUM (NA) 144 MEQ/L (136-145); TOTAL BILIRUBIN ADULT 1.8 MG/DL (0.2-1.0); TOTAL PROTEIN 4.5 GM/DL (6.4-8.2)
[2017-10-26] MEDS ORDERED: POTASSIUM CHLORIDE 10 MEQ CONTROLLED RELEASE TAB PO ONE (15:00)
--- NOTE | 2017-10-26 15:30 | HHI.PR ---
Subjective Remarks Follow-up respiratory failure, electrolyte abnormalities. Patient states that his breathing is improved. Still having abdominal pain. No nausea or vomiting. No chest pain. Objective Vitals Vital Signs Date Time Temp Pulse Resp B/P (MAP) Pulse Ox O2 Delivery O2 Flow Rate FiO2 10/26/17 14:22 98.4 82 19 121/58 (79) 10/26/17 08:59 98.4 78 19 118/56 (76) 10/26/17 08:10 93 Nasal Cannula 5.00 10/26/17 04:57 18 10/26/17 04:00 98.1 103 18 110/60 (77) 95 10/26/17 03:50 Nasal Cannula 5.00 10/26/17 00:00 107 10/26/17 00:00 91 Nasal Cannula 5.00 10/26/17 00:00 98.8 98 14 124/63 (83) 90 10/25/17 23:00 99 10/25/17 21:01 Nasal Cannula 5.00 10/25/17 20:00 98.8 98 20 111/54 (73) 87 10/25/17 20:00 98 10/25/17 20:00 87 Nasal Cannula 3.00 10/25/17 16:00 76 10/25/17 16:00 92 Nasal Cannula 3.00 10/25/17 16:00 98.7 108 22 142/66 (91) 95 I/O 10/25/17 10/25/17 10/25/17 10/26/17 10/26/17 10/26/17 07:00 15:00 23:00 07:00 15:00 23:00 Intake Total 1100 ml 450 ml 650 ml 600 ml Output Total 2620 ml 1250 ml 1330 ml Balance -1520 ml 450 ml -600 ml -730 ml Intake Oral 1100 ml 650 ml 600 ml IV Total 450 ml Output Urine Total 2200 ml 1100 ml 1200 ml Drainage Total 420 ml 150 ml 130 ml # Bowel Movements 1 1 1 Result Diagram: 10/26/17 0835 10/26/17 1209 Imaging Last Impressions Chest X-Ray 10/24/17 0000 Signed Impressions: Service Date/Time: Tuesday, October 24, 2017 14:35 - CONCLUSION: Multi-lobar consolidation with slight improvement in the left lung. Mauricio Archibald MD CT Angiography 10/22/17 0000 Signed Impressions: Service Date/Time: Sunday, October 22, 2017 15:00 - CONCLUSION: No evidence of pulmonary embolism. Oc Fletcher MD Abdomen/Pelvis CT 10/15/17 1838 Signed Impressions: Service Date/Time: Sunday, October 15, 2017 20:29 - CONCLUSION: Persistent and worsening acute/active Crohn's. Please see above. No abscess or perforation. Small ascites not significantly changed. Oc Haq MD Objective Remarks General: No acute distress. Heart: Regular rate and rhythm. No murmur. Lungs: Mild bibasilar crackles. Breathing is nonlabored. Abdomen: Binder in place. Extremities: No lower extremity edema. Psych: Alert and oriented. Procedures 10/19- explore lap with small bowel resection Urinary Catheter: No Vascular Central Line Catheter: No A/P Assessment and Plan 1. Acute Crohn's disease exacerbation: S/P exploratory laparotomy with small bowel resection 10/19. Appreciate colorectal surgery recommendations. Continue steroids. Continue pain control, wound care, abdominal binder. Encourage incentive spirometry. 2. Acute respiratory failure: Patient has history of COPD. Appreciate pulmonology recommendations. Continue IS, supplemental oxygen, bronchodilators, steroids. Continue antibiotics to cover for healthcare associated pneumonia. Wean supplemental oxygen as tolerated to keep O2 sats greater than 92%. Down to 5 L today. 3. Anemia, thrombocytopenia: Likely secondary to underlying liver disease. H& H are stable. Platelets slightly higher today. 4. Liver cirrhosis, portal hypertension: Status post TIPS procedure. Continue Aldactone, Lasix. 5. Anxiety: Chronic. Continue Xanax. 6. Electrolyte abnormalities: Supplement potassium. 7. Leukocytosis: Likely secondary to steroids. 8. DVT prophylaxis: SCDs. Discharge Planning Pending further clinical improvement. Delfino Nash MD Oct 26, 2017 15:30
[2017-10-26] MEDS: NACL 0.225% IV SCH (22:50)
[2017-10-26] MEDS: POTASSIUM CHLORIDE IV SCH (22:50)
[2017-10-26] MEDS: DEXTROSE 5% IV SCH (22:50)
[2017-10-26] MEDS: RESP: ALBUTEROL 2.5 MG/3 ML NEB (PRN) NEB (23:57)
[2017-10-27] VITALS (10 sets, daily range): BP systolic 104–182; BP diastolic 52–90; PULSE 97–124; RESP 17–19; TEMP 97.9–99.3; O2SAT 84–93
[2017-10-27] MEDS: ACETAMINOPHEN/HYDROcodone 325 MG/5 MG TAB PO PRN ×5 (02:30→20:27)
[2017-10-27] MEDS: PIPERACIL-TAZO 4.5 GM PREMIX 100 ML IV SCH ×4 (04:29→22:52)
[2017-10-27] MEDS: ALPRAZolam 0.5 MG TAB PO PRN ×3 (04:34→22:52)
[2017-10-27 07:29] LABS: AUTOMATED NEUTROPHIL # 23.7 TH/MM3 (1.8-7.7); BASOPHIL % 0.1 % (0.0-2.0); EOSINOPHIL # 0.6 TH/MM3 (0-0.4); EOSINOPHIL % 2.3 % (0.0-4.0); HEMATOCRIT 26.4 % (39.0-51.0); HEMOGLOBIN 8.7 GM/DL (13.0-17.0); LYMPH % 6.4 % (9.0-44.0); LYMPHOCYTE # 1.7 TH/MM3 (1.0-4.8); MEAN CELL VOLUME 87.9 FL (80.0-100.0); MEAN CORPUSCULAR HEMOGLOBIN 29.1 PG (27.0-34.0); MEAN CORPUSCULAR HGB CONC 33.1 % (32.0-36.0); MEAN PLATELET VOLUME 9.4 FL (7.0-11.0); MONO % 2.8 % (0.0-8.0); MONOCYTE # 0.8 TH/MM3 (0-0.9); NEUT % 88.4 % (16.0-70.0); PLATELET COUNT 114 TH/MM3 (150-450); RED CELL DISTRIBUTION WIDTH 16.7 % (11.6-17.2); WHITE BLOOD COUNT 26.8 TH/MM3 (4.0-11.0)
[2017-10-27 08:01] LABS: BICARBONATE 31.4 MEQ/L (21.0-32.0); CALCIUM 7.8 MG/DL (8.5-10.1); CREATININE 0.78 MG/DL (0.60-1.30)
[2017-10-27] MEDS: SPIRONOLACTONE 25 MG TAB PO SCH (08:18)
[2017-10-27] MEDS: PANTOPRAZOLE SOD 40 MG DELAYED RELEASE TAB PO SCH (08:18)
[2017-10-27] MEDS: POTASSIUM CHLORIDE 20 MEQ CONTROLLED RELEASE TAB PO SCH ×2 (08:19→20:26)
[2017-10-27] MEDS: HYDROCORTISONE SOD SUCCINATE 100 MG VIAL IV PUSH SCH ×2 (08:19→20:25)
[2017-10-27] MEDS: FUROSEMIDE 40 MG/4 ML VIAL IV PUSH SCH ×2 (08:19→20:26)
[2017-10-27] MEDS: SODIUM CHLORIDE 0.9% FLUSH 10 ML FLUSH IV FLUSH SCH ×2 (08:19→20:40)
[2017-10-27] MEDS: RESP: ALBUTEROL 2.5 MG/IPRATROPIUM 0.5 MG NEB (SCH) NEB ×4 (08:45→21:15)
[2017-10-27] MEDS: VANCOMYCIN INJ 1,250 MG in SODIUM CHLOR 0.9% 250 ML INJ 250 ML IV SCH (11:50)
--- NOTE | 2017-10-27 15:12 | HHI.PR ---
Subjective Remarks Follow-up respiratory failure, electrolyte abnormalities. Patient reporting more abdominal pain today. Does not feel as good overall as he did yesterday. He is having bowel movements. No nausea/vomiting. Objective Vitals Vital Signs Date Time Temp Pulse Resp B/P (MAP) Pulse Ox O2 Delivery O2 Flow Rate FiO2 10/27/17 12:11 98.3 117 19 106/52 (70) 93 10/27/17 12:00 98.6 119 17 104/54 (71) 88 10/27/17 11:52 Nasal Cannula 4.00 10/27/17 08:45 92 Nasal Cannula 6.00 10/27/17 08:19 18 10/27/17 04:00 97.9 100 18 113/56 (75) 92 10/27/17 00:37 114 10/27/17 00:00 98.1 97 18 107/55 (72) 92 10/26/17 21:32 94 Nasal Cannula 6.00 10/26/17 20:20 Nasal Cannula 5.00 10/26/17 20:02 102 10/26/17 20:00 98.2 108 104/54 (71) 92 10/26/17 16:00 98.3 88 18 105/55 (72) 93 I/O 10/26/17 10/26/17 10/26/17 10/27/17 10/27/17 10/27/17 07:00 15:00 23:00 07:00 15:00 23:00 Intake Total 600 ml 450 ml 820 ml Output Total 1330 ml 980 ml 1550 ml Balance -730 ml 450 ml -160 ml -1550 ml Intake Oral 600 ml 720 ml IV Total 450 ml 100 ml Output Urine Total 1200 ml 900 ml 1100 ml Drainage Total 130 ml 80 ml 450 ml # Bowel Movements 1 1 Result Diagram: 10/27/17 0420 10/27/17 0425 Imaging Last Impressions Chest X-Ray 10/24/17 0000 Signed Impressions: Service Date/Time: Tuesday, October 24, 2017 14:35 - CONCLUSION: Multi-lobar consolidation with slight improvement in the left lung. Mauricio Archibald MD CT Angiography 10/22/17 0000 Signed Impressions: Service Date/Time: Sunday, October 22, 2017 15:00 - CONCLUSION: No evidence of pulmonary embolism. Oc Fletcher MD Abdomen/Pelvis CT 10/15/17 1838 Signed Impressions: Service Date/Time: Sunday, October 15, 2017 20:29 - CONCLUSION: Persistent and worsening acute/active Crohn's. Please see above. No abscess or perforation. Small ascites not significantly changed. Oc Haq MD Objective Remarks General: No acute distress. Heart: Regular rate and rhythm. No murmur. Lungs: Mild bibasilar crackles. Breathing is nonlabored. Abdomen: Binder in place. Extremities: No lower extremity edema. Psych: Alert and oriented. Procedures 10/19- explore lap with small bowel resection Urinary Catheter: No Vascular Central Line Catheter: No A/P Assessment and Plan 1. Acute Crohn's disease exacerbation: S/P exploratory laparotomy with small bowel resection 10/19. Management per colorectal surgery. Continue steroids. Continue pain control, wound care, abdominal binder. Encourage incentive spirometry. 2. Acute respiratory failure: Patient has history of COPD. Appreciate pulmonology recommendations. Continue IS, supplemental oxygen, bronchodilators, steroids. Continue antibiotics to cover for healthcare associated pneumonia. Wean supplemental oxygen as tolerated to keep O2 sats greater than 92%. He has been off oxygen intermittently today as he has been removing his nasal cannula. 3. Anemia, thrombocytopenia: Likely secondary to underlying liver disease. H&H decreased today. Platelets stable. 4. Liver cirrhosis, portal hypertension: Status post TIPS procedure. Continue Aldactone, Lasix. 5. Anxiety: Chronic. Continue Xanax. 6. Electrolyte abnormalities: Potassium improved with supplementation. 7. Leukocytosis: Likely secondary to steroids. 8. DVT prophylaxis: SCDs. 9. Sepsis alert called due to tachycardia and leukocytosis. Tachycardia is likely secondary to bronchodilators. Leukocytosis likely secondary to steroids. With increased abdominal pain today, will check serum lactic acid. Patient is afebrile. Discharge Planning Pending further clinical improvement. Delfino Nash MD Oct 27, 2017 15:12
--- NOTE | 2017-10-27 18:11 | HHI.PR ---
Subjective Remarks C/R Surg POD UO good - after lasix LALI moderate debi PO +BM still pain management problem Objective - Vital Signs Date Time Temp Pulse Resp B/P (MAP) Pulse Ox O2 Delivery O2 Flow Rate FiO2 10/27/17 16:00 98.7 124 17 111/53 (72) 84 10/27/17 11:52 Nasal Cannula 4.00 Result Diagram: 10/27/1741910/27/17 0425 Objective Remarks PE alert Abd - full, soft, edema less wound dry, ecchymosis, LALI serous A/P Assessment and Plan Imp: Crohn's ds, OOB start PO, adv decr IVF - hep lock PT DC plans Ashwin Lane MD Oct 27, 2017 18:11
[2017-10-27] MEDS: ALBUMIN 25% INJ 100 ML IV SCH (19:51)
[2017-10-28] VITALS: BP 106/51; PULSE 118; RESP 18; TEMP 99.2; O2SAT 90
[2017-10-28] MEDS: ACETAMINOPHEN/HYDROcodone 325 MG/5 MG TAB PO PRN ×5 (00:51→20:23)
[2017-10-28] MEDS: VANCOMYCIN INJ 1,250 MG in SODIUM CHLOR 0.9% 250 ML INJ 250 ML IV SCH ×2 (00:52→11:45)
[2017-10-28] MEDS: RESP: ALBUTEROL 2.5 MG/3 ML NEB (PRN) NEB (04:16)
[2017-10-28] MEDS: ALPRAZolam 0.5 MG TAB PO PRN ×3 (05:07→20:23)
[2017-10-28] MEDS: PIPERACIL-TAZO 4.5 GM PREMIX 100 ML IV SCH ×4 (05:07→23:25)
[2017-10-28 08:00] VITALS: BP 115/55; PULSE 109; RESP 16; TEMP 98.3; O2SAT 90
[2017-10-28] MEDS: RESP: ALBUTEROL 2.5 MG/IPRATROPIUM 0.5 MG NEB (SCH) NEB (08:34)
[2017-10-28] MEDS: ALBUMIN 25% INJ 100 ML IV SCH (09:45)
[2017-10-28] MEDS: POTASSIUM CHLORIDE 20 MEQ CONTROLLED RELEASE TAB PO SCH ×2 (09:47→20:23)
[2017-10-28] MEDS: FUROSEMIDE 40 MG/4 ML VIAL IV PUSH SCH ×2 (09:47→20:22)
[2017-10-28] MEDS: SODIUM CHLORIDE 0.9% FLUSH 10 ML FLUSH IV FLUSH SCH ×2 (09:47→20:22)
[2017-10-28] MEDS: PANTOPRAZOLE SOD 40 MG DELAYED RELEASE TAB PO SCH (09:47)
[2017-10-28] MEDS: SPIRONOLACTONE 25 MG TAB PO SCH (09:47)
[2017-10-28] MEDS: HYDROCORTISONE SOD SUCCINATE 100 MG VIAL IV PUSH SCH ×2 (09:50→20:22)
[2017-10-28] MEDS ORDERED: PHARMACY ORDERED LAB ONE (10:45)
--- NOTE | 2017-10-28 11:26 | HHI.PR ---
Subjective Remarks POD#7 s/p resection TI/ascending colon for Crohn's painful Objective Vital Signs Date Time Temp Pulse Resp B/P (MAP) Pulse Ox O2 Delivery O2 Flow Rate FiO2 10/28/17 08:00 98.3 109 16 115/55 (75) 90 10/28/17 00:00 99.2 118 18 106/51 (69) 90 10/27/17 21:20 92 Nasal Cannula 3.50 10/27/17 20:30 Nasal Cannula 2.00 10/27/17 20:00 99.3 119 17 105/52 (69) 91 10/27/17 16:00 98.7 124 17 111/53 (72) 84 10/27/17 12:11 98.3 117 19 106/52 (70) 93 10/27/17 12:00 98.6 119 17 104/54 (71) 88 10/27/17 11:52 Nasal Cannula 4.00 I/O 10/27/17 10/27/17 10/27/17 10/28/17 10/28/17 10/28/17 07:00 15:00 23:00 07:00 15:00 23:00 Intake Total 350 ml 2300 ml 2000 ml Output Total 1550 ml 1220 ml 1430 ml Balance -1550 ml 350 ml 1080 ml 570 ml Intake Oral 2200 ml 2000 ml IV Total 350 ml 100 ml Output Urine Total 1100 ml 950 ml 1050 ml Drainage Total 450 ml 270 ml 380 ml # Bowel Movements 2 3 Result Diagram: 10/27/17 0420 10/27/17 0425 Objective Remarks Abdomen soft, nondistended, tender Wound clean LALI - serous, c/w ascites Assessment and Plan Assessment and Plan Still requiring O2 Still with high LALI output Await improved oxygenation Holli Lenz MD Oct 28, 2017 11:26
[2017-10-28 12:00] VITALS: BP 109/55; PULSE 110; RESP 16; TEMP 99.5; O2SAT 88
[2017-10-28] MEDS: NACL 0.225% IV SCH ×2 (14:00→23:26)
[2017-10-28] MEDS: DEXTROSE 5% IV SCH ×2 (14:00→23:26)
[2017-10-28] MEDS: POTASSIUM CHLORIDE IV SCH ×2 (14:00→23:26)
--- NOTE | 2017-10-28 14:05 | HHI.PR ---
Subjective Remarks Follow up respiratory failure, electrolyte abnormalities. The patient states that he feels a little bit better today. Still being weaned off the oxygen. Currently requiring 3 L. No chest pain. Abdominal pain is a little better today. Objective Vitals Vital Signs Date Time Temp Pulse Resp B/P (MAP) Pulse Ox O2 Delivery O2 Flow Rate FiO2 10/28/17 12:00 99.5 110 16 109/55 (73) 88 10/28/17 10:57 18 10/28/17 08:00 98.3 109 16 115/55 (75) 90 10/28/17 00:00 99.2 118 18 106/51 (69) 90 10/27/17 21:20 92 Nasal Cannula 3.50 10/27/17 20:30 Nasal Cannula 2.00 10/27/17 20:00 99.3 119 17 105/52 (69) 91 10/27/17 16:00 98.7 124 17 111/53 (72) 84 I/O 10/27/17 10/27/17 10/27/17 10/28/17 10/28/17 10/28/17 06:59 14:59 22:59 06:59 14:59 22:59 Intake Total 350 ml 2300 ml 2000 ml Output Total 1550 ml 1220 ml 1430 ml 700 ml Balance -1550 ml 350 ml 1080 ml 570 ml -700 ml Intake Oral 2200 ml 2000 ml IV Total 350 ml 100 ml Output Urine Total 1100 ml 950 ml 1050 ml Drainage Total 450 ml 270 ml 380 ml 700 ml # Bowel Movements 2 3 Result Diagram: 10/27/17 0420 10/27/17 0425 Imaging Last Impressions Chest X-Ray 10/24/17 0000 Signed Impressions: Service Date/Time: Tuesday, October 24, 2017 14:35 - CONCLUSION: Multi-lobar consolidation with slight improvement in the left lung. Mauricio Archibald MD CT Angiography 10/22/17 0000 Signed Impressions: Service Date/Time: Sunday, October 22, 2017 15:00 - CONCLUSION: No evidence of pulmonary embolism. Oc Fletcher MD Abdomen/Pelvis CT 10/15/17 1838 Signed Impressions: Service Date/Time: Sunday, October 15, 2017 20:29 - CONCLUSION: Persistent and worsening acute/active Crohn's. Please see above. No abscess or perforation. Small ascites not significantly changed. Oc Haq MD Objective Remarks General: No acute distress. Heart: Regular rate and rhythm. No murmur. Lungs: Mild bibasilar crackles. Breathing is nonlabored. Abdomen: Binder in place. Extremities: No lower extremity edema. Psych: Alert and oriented. Procedures 10/19- explore lap with small bowel resection Urinary Catheter: No Vascular Central Line Catheter: No A/P Assessment and Plan 1. Acute Crohn's disease exacerbation: S/P exploratory laparotomy with small bowel resection 10/19. Management per colorectal surgery. Continue steroids. Continue pain control, wound care, abdominal binder. Encourage incentive spirometry. 2. Acute respiratory failure: Patient has history of COPD. Appreciate pulmonology recommendations. Continue IS, supplemental oxygen, bronchodilators, steroids. Continue antibiotics to cover for healthcare associated pneumonia. Wean supplemental oxygen as tolerated to keep O2 sats greater than 92%. Now on 3 L. 3. Anemia, thrombocytopenia: Likely secondary to underlying liver disease. Repeat labs in the morning. 4. Liver cirrhosis, portal hypertension: Status post TIPS procedure. Continue Aldactone, Lasix. 5. Anxiety: Chronic. Continue Xanax. 6. Electrolyte abnormalities: Potassium improved with supplementation. 7. Leukocytosis: Likely secondary to steroids. 8. DVT prophylaxis: SCDs. Discharge Planning Pending further clinical improvement. Delfino Nash MD Oct 28, 2017 14:05
[2017-10-28 16:00] VITALS: BP 120/58; PULSE 112; RESP 17; TEMP 100.2; O2SAT 90
[2017-10-28 17:49] VITALS: O2SAT 90
[2017-10-28 20:00] VITALS: BP 111/58; PULSE 108; RESP 18; TEMP 98.7; O2SAT 93
--- NOTE | 2017-10-28 22:36 | RADRPT ---
EXAM DATE/TIME: 10/28/2017 22:13 [place] COMPARISON: CHEST SINGLE AP, October 24, 2017, 14:35. INDICATIONS : Shortness of breath and cough. MEDICAL HISTORY : Chronic obstructive pulmonary disease. SURGICAL HISTORY : None. ENCOUNTER: Subsequent ACUITY: 2 days PAIN SCORE: 0/10 LOCATION: Bilateral chest FINDINGS: Comparison is October 24. The right-sided airspace disease noted previously has improved. On the left s delio upper lobe disease is stable with slight worsening in the left perihilar region. No significant e ffusion. No pneumothorax. CONCLUSION: 1. Improvement in right-sided airspace disease since October 24. Slight worsening in the left perihilar region. Dung Ellsworth MD on October 28, 2017 at 22:32 Board Certified Radiologist. This report was verified electronically.
[2017-10-29] VITALS: BP 107/60; PULSE 76; RESP 18; TEMP 98; O2SAT 95
[2017-10-29] MEDS: VANCOMYCIN INJ 1,250 MG in SODIUM CHLOR 0.9% 250 ML INJ 250 ML IV SCH ×3 (00:39→20:34)
[2017-10-29] MEDS: RESP: ALBUTEROL 2.5 MG/3 ML NEB (PRN) NEB ×2 (01:37→13:07)
[2017-10-29] MEDS: ACETAMINOPHEN/HYDROcodone 325 MG/5 MG TAB PO PRN ×5 (03:14→23:54)
[2017-10-29] MEDS: ALPRAZolam 0.5 MG TAB PO PRN ×4 (03:14→23:54)
[2017-10-29] MEDS: PIPERACIL-TAZO 4.5 GM PREMIX 100 ML IV SCH ×4 (03:14→22:44)
[2017-10-29 08:00] VITALS: BP 91/55; PULSE 92; RESP 17; TEMP 98.1; O2SAT 96
[2017-10-29 08:23] LABS: AUTOMATED NEUTROPHIL # 16.1 TH/MM3 (1.8-7.7); BASOPHIL # 0.1 TH/MM3 (0-0.2); BASOPHIL % 0.6 % (0.0-2.0); EOSINOPHIL # 0.6 TH/MM3 (0-0.4); EOSINOPHIL % 3.2 % (0.0-4.0); HEMATOCRIT 25.1 % (39.0-51.0); HEMOGLOBIN 8.2 GM/DL (13.0-17.0); LYMPH % 8.4 % (9.0-44.0); LYMPHOCYTE # 1.6 TH/MM3 (1.0-4.8); MEAN CORPUSCULAR HEMOGLOBIN 28.9 PG (27.0-34.0); MEAN CORPUSCULAR HGB CONC 32.9 % (32.0-36.0); MEAN PLATELET VOLUME 9.2 FL (7.0-11.0); MONO % 4.7 % (0.0-8.0); MONOCYTE # 0.9 TH/MM3 (0-0.9); NEUT % 83.1 % (16.0-70.0); PLATELET COUNT 157 TH/MM3 (150-450); RED BLOOD COUNT 2.85 MIL/MM3 (4.50-5.90); RED CELL DISTRIBUTION WIDTH 16.3 % (11.6-17.2); WHITE BLOOD COUNT 19.4 TH/MM3 (4.0-11.0)
[2017-10-29 08:49] LABS: BICARBONATE 31.7 MEQ/L (21.0-32.0); CALCIUM 7.8 MG/DL (8.5-10.1)
[2017-10-29] MEDS: ALBUMIN 25% INJ 100 ML IV SCH (08:54)
[2017-10-29] MEDS: HYDROCORTISONE SOD SUCCINATE 100 MG VIAL IV PUSH SCH ×2 (08:56→20:33)
[2017-10-29] MEDS: FUROSEMIDE 40 MG/4 ML VIAL IV PUSH SCH ×2 (08:57→20:33)
[2017-10-29] MEDS: POTASSIUM CHLORIDE 20 MEQ CONTROLLED RELEASE TAB PO SCH ×2 (08:58→20:34)
[2017-10-29] MEDS: SPIRONOLACTONE 25 MG TAB PO SCH (08:58)
[2017-10-29] MEDS: PANTOPRAZOLE SOD 40 MG DELAYED RELEASE TAB PO SCH (08:58)
[2017-10-29] MEDS: SODIUM CHLORIDE 0.9% FLUSH 10 ML FLUSH IV FLUSH SCH ×2 (08:59→20:33)
[2017-10-29 10:06] VITALS: O2SAT 96
[2017-10-29 12:00] VITALS: BP 99/52; PULSE 99; RESP 17; TEMP 98; O2SAT 93
--- NOTE | 2017-10-29 12:58 | HHI.PR ---
Subjective Remarks POD#8 s/p resection TI/ascending colon for Crohn's painful, wants to go home Objective Vital Signs Date Time Temp Pulse Resp B/P (MAP) Pulse Ox O2 Delivery O2 Flow Rate FiO2 10/29/17 10:06 96 Nasal Cannula 3.00 10/29/17 08:00 98.1 92 17 91/55 (67) 96 10/29/17 00:00 98.0 76 18 107/60 (76) 95 10/28/17 21:03 Nasal Cannula 2.00 10/28/17 20:00 98.7 108 18 111/58 (75) 93 10/28/17 17:49 90 Nasal Cannula 3.50 10/28/17 16:00 100.2 112 17 120/58 (78) 90 10/28/17 14:53 18 I/O 10/28/17 10/28/17 10/28/17 10/29/17 10/29/17 10/29/17 07:00 15:00 23:00 07:00 15:00 23:00 Intake Total 2000 ml 660 ml 990 ml Output Total 1430 ml 700 ml 2700 ml 650 ml Balance 570 ml -700 ml -2040 ml 340 ml Intake Oral 2000 ml 660 ml 240 ml IV Total 750 ml Output Urine Total 1050 ml 2700 ml 450 ml Drainage Total 380 ml 700 ml 200 ml # Bowel Movements 3 2 Result Diagram: 10/29/17 0732 10/29/17 0732 Objective Remarks Abdomen soft, nondistended, tender Wound clean LALI - serous, c/w ascites Assessment and Plan Assessment and Plan Still requiring O2 Still with high LALI output May need home O2 Holli Lenz MD Oct 29, 2017 12:58
[2017-10-29] MEDS ORDERED: POTASSIUM CHLORIDE 10 MEQ CAP PO ONE (15:00)
--- NOTE | 2017-10-29 15:11 | HHI.PR ---
Subjective Remarks Follow up respiratory failure, electrolyte abnormalities. Patient states that he feels a little better again today. Pain is adequately controlled. No chest pain. Breathing seems to be better. Objective Vitals Vital Signs Date Time Temp Pulse Resp B/P (MAP) Pulse Ox O2 Delivery O2 Flow Rate FiO2 10/29/17 12:00 98.0 99 17 99/52 (68) 93 10/29/17 10:06 96 Nasal Cannula 3.00 10/29/17 08:00 98.1 92 17 91/55 (67) 96 10/29/17 00:00 98.0 76 18 107/60 (76) 95 10/28/17 21:03 Nasal Cannula 2.00 10/28/17 20:00 98.7 108 18 111/58 (75) 93 10/28/17 17:49 90 Nasal Cannula 3.50 10/28/17 16:00 100.2 112 17 120/58 (78) 90 I/O 10/28/17 10/28/17 10/28/17 10/29/17 10/29/17 10/29/17 06:59 14:59 22:59 06:59 14:59 22:59 Intake Total 2000 ml 660 ml 990 ml Output Total 1430 ml 700 ml 2700 ml 650 ml Balance 570 ml -700 ml -2040 ml 340 ml Intake Oral 2000 ml 660 ml 240 ml IV Total 750 ml Output Urine Total 1050 ml 2700 ml 450 ml Drainage Total 380 ml 700 ml 200 ml # Bowel Movements 3 2 Result Diagram: 10/29/17 0732 10/29/17 0732 Imaging Last Impressions Chest X-Ray 10/28/17 0000 Signed Impressions: Service Date/Time: Saturday, October 28, 2017 22:13 - CONCLUSION: 1. Improvement in right-sided airspace disease since October 24. Slight worsening in the left perihilar region. Dung Ellsworth MD CT Angiography 10/22/17 0000 Signed Impressions: Service Date/Time: Sunday, October 22, 2017 15:00 - CONCLUSION: No evidence of pulmonary embolism. Oc Fletcher MD Abdomen/Pelvis CT 10/15/17 1838 Signed Impressions: Service Date/Time: Sunday, October 15, 2017 20:29 - CONCLUSION: Persistent and worsening acute/active Crohn's. Please see above. No abscess or perforation. Small ascites not significantly changed. Oc Haq MD Objective Remarks General: No acute distress. Heart: Regular rate and rhythm. No murmur. Lungs: Mild bibasilar crackles. Breathing is nonlabored. Abdomen: Soft Extremities: No lower extremity edema. Psych: Alert and oriented. Procedures 10/19- explore lap with small bowel resection Urinary Catheter: No Vascular Central Line Catheter: No A/P Assessment and Plan 1. Acute Crohn's disease exacerbation: S/P exploratory laparotomy with small bowel resection 10/19. Management per colorectal surgery. Continue steroids. Continue pain control, wound care, abdominal binder. Encourage incentive spirometry. Continues to have significant output through LALI drain. 2. Acute respiratory failure: Patient has history of COPD. Appreciate pulmonology recommendations. Continue IS, supplemental oxygen, bronchodilators, steroids. Continue antibiotics to cover for healthcare associated pneumonia. Wean supplemental oxygen as tolerated to keep O2 sats greater than 92%. Now on 2L. 3. Anemia, thrombocytopenia: Likely secondary to underlying liver disease. H& H slightly down today. Platelets improved. 4. Liver cirrhosis, portal hypertension: Status post TIPS procedure. Continue Aldactone, Lasix. 5. Anxiety: Chronic. Continue Xanax. 6. Hypokalemia: Supplement potassium. 7. Leukocytosis: Likely secondary to steroids. Improving. 8. DVT prophylaxis: SCDs. Discharge Planning Pending further clinical improvement. Delfino Nash MD Oct 29, 2017 15:11
[2017-10-29 16:00] VITALS: BP 104/56; PULSE 102; RESP 17; TEMP 97.8; O2SAT 92
[2017-10-29 20:00] VITALS: BP 98/57; PULSE 99; RESP 18; TEMP 97.9; O2SAT 93
[2017-10-29] MEDS: DEXTROSE 5% IV SCH (20:34)
[2017-10-29] MEDS: NACL 0.225% IV SCH (20:34)
[2017-10-29] MEDS: POTASSIUM CHLORIDE IV SCH (20:34)
[2017-10-30] VITALS (7 sets, daily range): BP systolic 98–117; BP diastolic 53–59; PULSE 85–99; RESP 18–20; TEMP 97.9–98.3; O2SAT 92–95
[2017-10-30] MEDS: PIPERACIL-TAZO 4.5 GM PREMIX 100 ML IV SCH ×4 (03:58→22:35)
[2017-10-30] MEDS: POTASSIUM CHLORIDE IV SCH (03:59)
[2017-10-30] MEDS: ACETAMINOPHEN/HYDROcodone 325 MG/5 MG TAB PO PRN ×4 (03:59→22:33)
[2017-10-30] MEDS: DEXTROSE 5% IV SCH (03:59)
[2017-10-30] MEDS: NACL 0.225% IV SCH (03:59)
[2017-10-30 06:06] LABS: AUTOMATED NEUTROPHIL # 14.1 TH/MM3 (1.8-7.7); BASOPHIL # 0.1 TH/MM3 (0-0.2); BASOPHIL % 0.4 % (0.0-2.0); EOSINOPHIL # 0.2 TH/MM3 (0-0.4); EOSINOPHIL % 1.5 % (0.0-4.0); HEMATOCRIT 23.5 % (39.0-51.0); HEMOGLOBIN 7.7 GM/DL (13.0-17.0); LYMPH % 6.9 % (9.0-44.0); LYMPHOCYTE # 1.1 TH/MM3 (1.0-4.8); MEAN CELL VOLUME 88.4 FL (80.0-100.0); MEAN CORPUSCULAR HEMOGLOBIN 28.8 PG (27.0-34.0); MEAN CORPUSCULAR HGB CONC 32.5 % (32.0-36.0); MONO % 6.4 % (0.0-8.0); MONOCYTE # 1.1 TH/MM3 (0-0.9); NEUT % 84.8 % (16.0-70.0); PLATELET COUNT 173 TH/MM3 (150-450); RED BLOOD COUNT 2.66 MIL/MM3 (4.50-5.90); RED CELL DISTRIBUTION WIDTH 16.1 % (11.6-17.2); WHITE BLOOD COUNT 16.6 TH/MM3 (4.0-11.0)
[2017-10-30 06:34] LABS: CALCIUM 7.9 MG/DL (8.5-10.1); CREATININE 0.85 MG/DL (0.60-1.30); MAGNESIUM 1.6 MG/DL (1.5-2.5)
[2017-10-30] MEDS: RESP: ALBUTEROL 2.5 MG/3 ML NEB (PRN) NEB ×2 (09:07→16:29)
[2017-10-30] MEDS: SPIRONOLACTONE 25 MG TAB PO SCH (09:52)
[2017-10-30] MEDS: PANTOPRAZOLE SOD 40 MG DELAYED RELEASE TAB PO SCH (09:52)
[2017-10-30] MEDS: POTASSIUM CHLORIDE 20 MEQ CONTROLLED RELEASE TAB PO SCH ×2 (09:52→22:34)
[2017-10-30] MEDS: HYDROCORTISONE SOD SUCCINATE 100 MG VIAL IV PUSH SCH (09:53)
[2017-10-30] MEDS: FUROSEMIDE 40 MG/4 ML VIAL IV PUSH SCH ×2 (09:53→22:34)
[2017-10-30] MEDS: ALBUMIN 25% INJ 100 ML IV SCH (09:53)
[2017-10-30] MEDS: SODIUM CHLORIDE 0.9% FLUSH 10 ML FLUSH IV FLUSH SCH ×2 (09:53→21:00)
[2017-10-30] MEDS: VANCOMYCIN INJ 1,250 MG in SODIUM CHLOR 0.9% 250 ML INJ 250 ML IV SCH ×2 (12:06→23:53)
[2017-10-30] MEDS: ALPRAZolam 0.5 MG TAB PO PRN ×2 (14:50→22:32)
--- NOTE | 2017-10-30 15:18 | HHI.PR ---
Subjective Remarks Follow-up respiratory failure. The patient has been off oxygen all day today and is doing well on room air. States that his dyspnea has improved. Abdominal pain is better today as well. Still having drainage from the LALI drain. Objective Vitals Vital Signs Date Time Temp Pulse Resp B/P (MAP) Pulse Ox O2 Delivery O2 Flow Rate FiO2 10/30/17 12:00 97.9 94 20 109/55 (73) 95 10/30/17 09:10 92 21 10/30/17 08:00 97.9 85 18 98/53 (68) 95 10/30/17 00:00 98.0 96 18 113/57 (75) 95 10/29/17 22:03 Nasal Cannula 2.00 10/29/17 20:00 97.9 99 18 98/57 (71) 93 10/29/17 16:00 97.8 102 17 104/56 (72) 92 I/O 10/29/17 10/29/17 10/29/17 10/30/17 10/30/17 10/30/17 07:00 15:00 23:00 07:00 15:00 23:00 Intake Total 990 ml 1260 ml Output Total 650 ml 2225 ml 750 ml Balance 340 ml -965 ml -750 ml Intake Oral 240 ml 1000 ml IV Total 750 ml 260 ml Output Urine Total 450 ml 1650 ml 600 ml Drainage Total 200 ml 575 ml 150 ml # Bowel Movements 2 Result Diagram: 10/30/17 0525 10/30/17 0525 Imaging Last Impressions Chest X-Ray 10/28/17 0000 Signed Impressions: Service Date/Time: Saturday, October 28, 2017 22:13 - CONCLUSION: 1. Improvement in right-sided airspace disease since October 24. Slight worsening in the left perihilar region. Dung Ellsworth MD CT Angiography 10/22/17 0000 Signed Impressions: Service Date/Time: Sunday, October 22, 2017 15:00 - CONCLUSION: No evidence of pulmonary embolism. Oc Fletcher MD Abdomen/Pelvis CT 10/15/17 1838 Signed Impressions: Service Date/Time: Sunday, October 15, 2017 20:29 - CONCLUSION: Persistent and worsening acute/active Crohn's. Please see above. No abscess or perforation. Small ascites not significantly changed. Oc Haq MD Objective Remarks General: No acute distress. Heart: Regular rate and rhythm. No murmur. Lungs: Clear to auscultation. Breathing is nonlabored. Abdomen: Soft Extremities: No lower extremity edema. Psych: Alert and oriented. Procedures 10/19- explore lap with small bowel resection Urinary Catheter: No Vascular Central Line Catheter: No A/P Assessment and Plan 1. Acute Crohn's disease exacerbation: S/P exploratory laparotomy with small bowel resection 10/19. Management per colorectal surgery. Continue steroids. Continue pain control, wound care, abdominal binder. Encourage incentive spirometry. Continues to have significant output through LALI drain. 2. Acute respiratory failure: Patient has history of COPD. Appreciate pulmonology recommendations. Continue IS, supplemental oxygen, bronchodilators, steroids. Continue antibiotics to cover for healthcare associated pneumonia. Wean supplemental oxygen as tolerated to keep O2 sats greater than 92%. Now on room air. 3. Anemia, thrombocytopenia: Likely secondary to underlying liver disease. H& H slightly down today. Platelets improved. Check stool Hemoccult. 4. Liver cirrhosis, portal hypertension: Status post TIPS procedure. Continue Aldactone, Lasix. 5. Anxiety: Chronic. Continue Xanax. 6. Hypokalemia: Improved. 7. Leukocytosis: Likely secondary to steroids. WBCs trending down. 8. DVT prophylaxis: SCDs. Discharge Planning Pending further clinical improvement. Delfino Nash MD Oct 30, 2017 15:18
[2017-10-30] MEDS ORDERED: SODIUM CHLOR 0.9% 250 ML INJ 250 ML IV ONE (17:30)
[2017-10-31] VITALS (7 sets, daily range): BP systolic 90–119; BP diastolic 53–58; PULSE 93–111; RESP 16–18; TEMP 98.1–99.6; O2SAT 93–95
[2017-10-31] MEDS: ALPRAZolam 0.5 MG TAB PO PRN ×2 (05:56→12:30)
[2017-10-31] MEDS: ACETAMINOPHEN/HYDROcodone 325 MG/5 MG TAB PO PRN ×3 (05:56→15:20)
[2017-10-31] MEDS: PIPERACIL-TAZO 4.5 GM PREMIX 100 ML IV SCH (05:57)
[2017-10-31] MEDS: ALBUMIN 25% INJ 100 ML IV SCH (08:06)
[2017-10-31] MEDS: PANTOPRAZOLE SOD 40 MG DELAYED RELEASE TAB PO SCH (08:07)
[2017-10-31] MEDS: SODIUM CHLORIDE 0.9% FLUSH 10 ML FLUSH IV FLUSH SCH (08:08)
[2017-10-31] MEDS: SPIRONOLACTONE 25 MG TAB PO SCH (08:08)
[2017-10-31] MEDS: POTASSIUM CHLORIDE 20 MEQ CONTROLLED RELEASE TAB PO SCH (08:08)
[2017-10-31] MEDS ORDERED: HYDROCORTISONE SOD SUCCINATE 100 MG VIAL IV PUSH SCH (09:00)
[2017-10-31 11:28] LABS: AUTOMATED NEUTROPHIL # 16.9 TH/MM3 (1.8-7.7); BASOPHIL # 0.1 TH/MM3 (0-0.2); BASOPHIL % 0.7 % (0.0-2.0); EOSINOPHIL # 0.5 TH/MM3 (0-0.4); EOSINOPHIL % 2.5 % (0.0-4.0); HEMATOCRIT 26.5 % (39.0-51.0); HEMOGLOBIN 8.7 GM/DL (13.0-17.0); LYMPHOCYTE # 0.8 TH/MM3 (1.0-4.8); MEAN CELL VOLUME 87.3 FL (80.0-100.0); MEAN CORPUSCULAR HEMOGLOBIN 28.7 PG (27.0-34.0); MEAN CORPUSCULAR HGB CONC 32.9 % (32.0-36.0); MEAN PLATELET VOLUME 8.7 FL (7.0-11.0); MONO % 5.5 % (0.0-8.0); MONOCYTE # 1.1 TH/MM3 (0-0.9); NEUT % 87.3 % (16.0-70.0); PLATELET COUNT 192 TH/MM3 (150-450); RED BLOOD COUNT 3.04 MIL/MM3 (4.50-5.90); RED CELL DISTRIBUTION WIDTH 15.9 % (11.6-17.2); WHITE BLOOD COUNT 19.3 TH/MM3 (4.0-11.0)
[2017-10-31 11:55] LABS: CREATININE 0.94 MG/DL (0.60-1.30)
[2017-10-31] MEDS: FUROSEMIDE 40 MG/4 ML VIAL IV PUSH SCH (12:31)
--- NOTE | 2017-10-31 13:35 | HHI.DCPOC ---
Discharge Care Plan Diagnosis: (1) Acute respiratory failure (2) Thrombocytopenia (3) Exacerbation of Crohn's disease (4) Anemia (5) Abdominal pain (6) Tobacco abuse (7) Leukocytosis Goals to Promote Your Health * To prevent worsening of your condition and complications * To maintain your health at the optimal level Directions to Meet Your Goals Take your medications as prescribed Follow your dietary instruction Follow activity as directed Keep your appointments as scheduled Take your immunizations and boosters as scheduled If your symptoms worsen call your PCP, if no PCP go to Urgent Care Center or Emergency Room Smoking is Dangerous to Your Health. Avoid second hand smoke Call the 24-hour hour crisis hotline for domestic abuse at Delfino Nash MD Oct 31, 2017 13:35
[2017-10-31] MEDS ORDERED: POTA20TA5 PO (13:38)
[2017-10-31] MEDS ORDERED: HYDR-3288 PO (13:38)
[2017-10-31] MEDS ORDERED: FURO40TA PO (13:38)
--- NOTE | 2017-10-31 13:46 | HHI.DS ---
Discharge Summary Admission Date Oct 15, 2017 at 21:22 Discharge Date: Oct 31, 2017 Admitting Diagnosis Exacerbation Crohn's; partial SBO; anemia (1) Exacerbation of Crohn's disease ICD Code: K50.90 - Exacerbation of Crohn's disease Status: Acute (2) Abdominal pain ICD Code: R10.9 - Unspecified abdominal pain Status: Resolved (3) Tobacco abuse ICD Code: Z72.0 - Tobacco use Status: Chronic (4) Thrombocytopenia ICD Code: D69.6 - Thrombocytopenia, unspecified (5) Leukocytosis ICD Code: D72.829 - Elevated white blood cell count, unspecified Status: Resolved (6) Acute respiratory failure ICD Code: J96.00 - Acute respiratory failure, unspecified whether with hypoxia or hypercapnia (7) Anemia ICD Code: D64.9 - Anemia, unspecified Status: Chronic Procedures 10/19- explore lap with small bowel resection Brief History - From Admission hx from patient reports of abdominal pain getting worse and worse over 2 yrs now almost every weekly attacks just saw Dr Lane about 3 days ago no fever past few days but had fevers on and off prior had nausea, but depends how much he eats vomited only twice in past one week- once was self induced, no blood in it no black or red color stools was having consitpation for 2 days, but once it came out, it flows like diarrhea there were times there was nothing but water has hx of cirrhosis and had TIPS with stent placement prior 06/12/17 was admitted from 06/06/17- 06/16/17 ran out of lasix about [address] and had new prescription for aldactone and now only taking aldactone for diuretics per patient, had recent right index finger injuries and was in hospital and was on antibiotics now has worsening infection at left nipple area and right groin area - however, on exam was very benign small pimple has hx of MRSA in 04/2017 no other complaints CBC/BMP: 10/31/17 1103 10/31/17 1103 Significant Findings Laboratory Tests Test 10/29/17 07:32 10/30/17 05:10/31/17 11:03 White Blood Count 19.4 TH/MM3 (4.0-11.0) 16.6 TH/MM3 (4.0-11.0) 19.3 TH/MM3 (4.0-11.0) Red Blood Count 2.85 MIL/MM3 (4.50-5.90) 2.66 MIL/MM3 (4.50-5.90) 3.04 MIL/MM3 (4.50-5.90) Hemoglobin 8.2 GM/DL (13.0-17.0) 7.7 GM/DL (13.0-17.0) 8.7 GM/DL (13.0-17.0) Hematocrit 25.1 % (39.0-51.0) 23.5 % (39.0-51.0) 26.5 % (39.0-51.0) Neutrophils (%) (Auto) 83.1 % (16.0-70.0) 84.8 % (16.0-70.0) 87.3 % (16.0-70.0) Lymphocytes (%) (Auto) 8.4 % (9.0-44.0) 6.9 % (9.0-44.0) 4.0 % (9.0-44.0) Neutrophils # (Auto) 16.1 TH/MM3 (1.8-7.7) 14.1 TH/MM3 (1.8-7.7) 16.9 TH/MM3 (1.8-7.7) Eosinophils # (Auto) 0.6 TH/MM3 (0-0.4) 0.5 TH/MM3 (0-0.4) Calcium Level 7.8 MG/DL (8.5-10.1) 7.9 MG/DL (8.5-10.1) Potassium Level 3.4 MEQ/L (3.5-5.1) Estimat Glomerular Filtration Rate 78 ML/MIN (>89) 84 ML/MIN (>89) Monocytes # (Auto) 1.1 TH/MM3 (0-0.9) 1.1 TH/MM3 (0-0.9) Random Glucose 108 MG/DL (74-106) Chloride Level 108 MEQ/L (98-107) Lymphocytes # (Auto) 0.8 TH/MM3 (1.0-4.8) Imaging Last Impressions Chest X-Ray 10/28/17 0000 Signed Impressions: Service Date/Time: Saturday, October 28, 2017 22:13 - CONCLUSION: 1. Improvement in right-sided airspace disease since October 24. Slight worsening in the left perihilar region. Dung Ellsworth MD CT Angiography 10/22/17 0000 Signed Impressions: Service Date/Time: Sunday, October 22, 2017 15:00 - CONCLUSION: No evidence of pulmonary embolism. Oc Fletcher MD Abdomen/Pelvis CT 10/15/17 1838 Signed Impressions: Service Date/Time: Sunday, October 15, 2017 20:29 - CONCLUSION: Persistent and worsening acute/active Crohn's. Please see above. No abscess or perforation. Small ascites not significantly changed. Oc Haq MD PE at Discharge General: No acute distress. Heart: Regular rate and rhythm. No murmur. Lungs: Clear to auscultation. Breathing is nonlabored. Abdomen: Soft Extremities: No lower extremity edema. Psych: Alert and oriented. Pt update on day of discharge The patient is seen ambulating in the halls. He has no complaints at this time. He wants to go home. Denies chest pain or dyspnea. Abdominal pain is well controlled. He states that he does get pain from time to time from the sutures. Discussed with Dr. Lane, who has cleared the patient for discharge. Hospital Course The patient was admitted for management of acute Crohn's exacerbation. Colorectal surgery was consulted. He was continued on antibiotics and steroids. Exploratory laparotomy with resection of the terminal ileum and ascending colon was performed on 10/19/17. The patient developed respiratory failure postoperatively. He was placed on antibiotics for coverage of pneumonia. Pulmonology was consulted. Patient was continued on supplemental oxygen, IV steroids, and bronchodilators. He improved slowly throughout the hospitalization. Oxygen was weaned and the patient's activity was gradually increased. He had significant drainage from the LALI drain following surgery. This was removed on the day prior to discharge. Steroids were weaned. On the day of discharge, the patient was ambulating in the halls without oxygen and was not experiencing any shortness of breath. Oxygen saturation on room air following ambulation was 96%. The patient was cleared for discharge by colorectal surgery. He was felt to be stable for discharge home. Pt Condition on Discharge: Stable Discharge Disposition: Discharge Home Discharge Time: > 30 minutes Discharge Instructions DIET: Follow Instructions for: Heart Healthy Diet Activities you can perform: Regular-No Restrictions Follow up Referrals: Appointment for Follow Up - [address] MD PCP Follow-up New Medications: Furosemide (Furosemide) 40 Mg Tab 40 MG PO BID for Diuretic, #60 TAB 0 Refills Hydrocodone-Acetaminophen ([place]) 7.5-325 mg Tab 1 TAB PO Q4H PRN for PAIN for 3 Days, #18 TAB 0 Refills Potassium Chloride Microencaps (Potassium Chloride Microencaps) 20 Meq Tab 40 MEQ PO Q12HR for Electrolyte replacement, #60 TAB 0 Refills Continued Medications: Albuterol 8.5 GM Inh (Proair Hfa 8.5 GM Inh) 90 Mcg/Act Aer 2 PUFF INH Q6H PRN for SHORTNESS OF BREATH, #1 INHALER 0 Refills 108 mcg/actuation Alprazolam (Xanax) 0.5 Mg Tab 0.5 MG PO DAILY PRN for ANXIETY, TAB 0 Refills Pantoprazole (Pantoprazole) 40 Mg Tab 40 MG PO DAILY for gastritis, #60 TAB 3 Refills Spironolactone (Aldactone) 50 Mg Tab 50 MG PO DAILY, #30 TAB 0 Refills Discontinued Medications: Mesalamine ER (Pentasa) 500 Mg Caper 1000 MG PO QID for Ulcerative Colitis, #120 CAP 0 Refills Methylprednisolone Dosepak (Medrol Dosepak) 4 Mg Dspk 4 MG PO DIRECTED, #1 DSPK 0 Refills Per Pharmacist direction Delfino Nahs MD Oct 31, 2017 13:46
== END 2017-10-31 15:29 | disposition home or self-care (01) | DRG 329 ==
LOC: PHED 16:50 → PHEDA 21:22 → PH3A 23:02 → N07A 10-16 14:42 → HCIS 10-19 20:20 → N03B 10-22 20:47 → N07B 10-26 03:41
PROVIDERS: ADMIT Family Medicine; ATTEND Family Medicine
PROC: 30233N1 Transfusion of Nonautologous Red Blood Cells into Peripheral Vein, Percutaneous Approach (ICD-10-PCS; 2017-10-17)
PROC: 0DBB0ZZ Excision of Ileum, Open Approach (ICD-10-PCS; 2017-10-19)
PROC: 0DTK0ZZ Resection of Ascending Colon, Open Approach (ICD-10-PCS; 2017-10-19)
PROC: 0DBL0ZZ Excision of Transverse Colon, Open Approach (ICD-10-PCS; principal; 2017-10-19 17:35)
DX: K50.912 Crohn's disease, unspecified, with intestinal obstruction (principal); J18.9 Pneumonia, unspecified organism; J96.01 Acute respiratory failure with hypoxia; J81.1 Chronic pulmonary edema; K76.6 Portal hypertension; D69.59 Other secondary thrombocytopenia; J44.0 Chronic obstructive pulmonary disease with (acute) lower respiratory infection; E87.1 Hypo-osmolality and hyponatremia; J44.1 Chronic obstructive pulmonary disease with (acute) exacerbation; K74.60 Unspecified cirrhosis of liver; F17.200 Nicotine dependence, unspecified, uncomplicated; D64.9 Anemia, unspecified; K21.9 Gastro-esophageal reflux disease without esophagitis; Y95 Nosocomial condition; E83.42 Hypomagnesemia; E87.6 Hypokalemia; E87.70 Fluid overload, unspecified; F41.9 Anxiety disorder, unspecified; F32.9 Major depressive disorder, single episode, unspecified; M19.90 Unspecified osteoarthritis, unspecified site; R00.0 Tachycardia, unspecified; Z86.14 Personal history of Methicillin resistant Staphylococcus aureus infection
CPT/HCPCS: 36430; 36600; 71045; 71275; 74177; 76937; 80048; 80053; 80202; 81001; 82565; 82805; 83605; 83690; 83735; 83880; 84155; 84484; 85007; 85014; 85018; 85025; 85027; 85384; 85610; 85730; 86850; 86900; 86901; 86920; 87070; 87205; 87641; 88307; 93005; 93306; 94150; 94640; 94664; 96360; C9113; J0131; J0690; J1720; J1940; J2250; J2270; J2405; J2543; J2765; J2930; J3010; J3370; J3430; J3475; J3480; J7030; J7050; J7613; P9016; P9047; Q9967

== ENCOUNTER 2017-11-04 15:17 | Observation (INO) | payer OTHER, MEDICAID ==
[~2017-11-04] VITALS: Ht 182.9 cm; Wt 50.6 kg
[~2017-11-04 15:17] MED LIST changes: +ALBUAER3 INH; +HYDR-3288 PO; -MEDR4PAK PO; -OXYC1CAP PO; -PENT500C2 PO; +POTA20TA5 PO; -ZOFR4TAB3 SL
[2017-11-04 15:24] VITALS: BP 101/54; PULSE 114; RESP 17; TEMP 98.9; O2SAT 95
[2017-11-04] MEDS ORDERED: SODIUM CHLOR 0.9% 1000 ML INJ 1,000 ML IV SCH ×2 (15:47→18:43)
--- NOTE | 2017-11-04 15:55 | PD ---
HPI Chief Complaint: Abdominal Pain Time Seen by Provider: 15:32 Travel History International Travel<30 days: No Contact w/Intl Traveler<30days: No Traveled to known affect area: No History of Present Illness HPI Patient is a 52-year-old male who presents the emergency room complaints of abdominal pain. Patient has history of Crohn's disease, he follows with Dr. Lane with colorectal surgery. Patient was admitted to the hospital on October for acute Crohn's exacerbation. Patient ended up having an exploratory laparotomy with resection of the terminal ileum and ascending colon on October by Dr. Lane. Patient was ultimately discharged from the hospital on October 31, 2017 and does have a follow-up appointment with Dr. Lane on Monday, November 06, 2017. Patient reports that last night, he has been taking deep breaths and has been coughing, reports that during his breathing exercises yesterday, he felt 2 pops in his abdomen. Reports that he has been having extreme pain across his abdomen all morning. Patient with no nausea or vomiting , no fevers or chills with the symptoms. Patient did have a bowel movement this morning 3. Reports that when he has his abdominal pain, pain is moderate in nature. Nothing makes pain better or worse. PFSH Past Medical History Hx Anticoagulant Therapy: No Arthritis: Yes Asthma: Yes Autoimmune Disease: No Blood Disorders: No Anxiety: No Depression: Yes Heart Rhythm Problems: Yes Cancer: No Cardiovascular Problems: Yes High Cholesterol: No Chest Pain: No Congestive Heart Failure: No COPD: Yes Cerebrovascular Accident: No Diabetes: No Diminished Hearing: No Endocrine: No Gastrointestinal Disorders: Yes (CROHNS, gastritis, ascites) GERD: Yes Genitourinary: Yes Headaches: Yes Hiatal Hernia: Yes Hypertension: No Immune Disorder: No Inguinal Hernia: Yes Implanted Vascular Access Dvce: No Kidney Stones: Yes Musculoskeletal: Yes (BILAT KNEES.) Neurologic: Yes Psychiatric: Yes Reproductive: No Respiratory: Yes Immunizations Current: Yes Migraines: No Pancreatitis: Yes Renal Failure: No Seizures: No Sleep Apnea: No Thyroid Disease: No Ulcer: No ?: Not Past Surgical History Abdominal Surgery: Yes (COLON RESECTION DUE TO CROHNS) Arteriovenous Shunt: No Cardiac Surgery: No Ear Surgery: No Endocrine Surgery: No Eye Surgery: No Genitourinary Surgery: No Gynecologic Surgery: No Insulin Pump: No Joint Replacement: No Neurologic Surgery: No Oral Surgery: No Pacemaker: No Thoracic Surgery: No Tonsillectomy: Yes Other Surgery: Yes (CROHN'S DISEASE) Social History Alcohol Use: Yes (TWICE A WEEK) Tobacco Use: Yes (1/2 PPD) Substance Use: No Allergies-Medications (Allergen,Severity, Reaction): Coded Allergies: tetanus toxoid, adsorbed (Verified Allergy, Severe, Nausea/Vomiting, ) Reported Meds & Prescriptions Reported Meds & Active Scripts Active Levaquin (Levofloxacin) 750 Mg Tablet 750 Mg PO DAILY 7 Days Furosemide 40 Mg Tab 40 Mg PO BID Stover (Hydrocodone-Acetaminophen) 7.5-325 mg Tab 1 Tab PO Q4H PRN 3 Days Reported Xanax (Alprazolam) 0.5 Mg Tab 0.5 Mg PO DAILY PRN Review of Systems General / Constitutional: No: Fever, Chills Eyes: No: Visual changes HENT: No: Headaches Cardiovascular: No: Chest Pain or Discomfort Respiratory: No: Shortness of Breath Gastrointestinal: Positive: Nausea, Abdominal Pain, No: Vomiting, Diarrhea, Constipation Genitourinary: No: Dysuria Musculoskeletal: No: Pain Skin: No Rash Neurologic: No: Weakness Psychiatric: No: Depression Endocrine: No: Polydipsia Hematologic/Lymphatic: No: Easy Bruising Physical Exam Narrative GENERAL: moderate distress SKIN: Focused skin assessment warm/dry. HEAD: Atraumatic. Normocephalic. EYES: Pupils equal and round. No scleral icterus. No injection or drainage. ENT: No nasal bleeding or discharge. Mucous membranes pink and moist. NECK: Trachea midline. No JVD. CARDIOVASCULAR: Regular rate and rhythm. No murmur appreciated. RESPIRATORY: No accessory muscle use. Clear to auscultation. Breath sounds equal bilaterally. GASTROINTESTINAL: Abdomen soft, diffusely tender with no rebound or guarding on exam, nondistended. healing midline abdominal incisions with no drainage MUSCULOSKELETAL: No obvious deformities. No clubbing. No cyanosis. No edema. NEUROLOGICAL: Awake and alert. No obvious cranial nerve deficits. Motor grossly within normal limits. Normal speech. PSYCHIATRIC: Appropriate mood and affect; insight and judgment normal. Data Data Last Documented VS Vital Signs Date Time Temp Pulse Resp B/P (MAP) Pulse Ox O2 Delivery O2 Flow Rate FiO2 11/04/17 18:14 97 Room Air 11/04/17 15:24 98.9 114 17 101/54 (70) Orders Orders Complete Blood Count With Diff (11/04/17 15:47) Comprehensive Metabolic Panel (11/04/17 15:47) Lipase (11/04/17 15:47) Prothrombin Time / Inr (Pt) (11/04/17 15:47) Act Partial Throm Time (Ptt) (11/04/17 15:47) Urinalysis - C+S If Indicated (11/04/17 15:47) Ct Abd/Pel W Iv Contrast(Rout) (11/04/17 15:47) Iv Access Insert/Monitor (11/04/17 15:47) Ecg Monitoring (11/04/17 15:47) Oximetry (11/04/17 15:47) NPO (11/04/17 15:47) Morphine Inj (Morphine Inj) (11/04/17 16:00) Sodium Chlor 0.9% 1000 Ml Inj (Ns 1000 M (11/04/17 15:47) Sodium Chloride 0.9% Flush (Ns Flush) (11/04/17 16:00) Iohexol 350 Inj (Omnipaque 350 Inj) (11/04/17 16:43) Potassium Chloride (Kcl) (11/04/17 17:30) Potassium Chlor 20 Meq Premix (Kcl 20 Me (11/04/17 17:30) Blood Culture (11/04/17 17:36) Levofloxacin 750 Mg Premix Inj (Levaquin (11/04/17 17:45) Labs Laboratory Tests Test 11/04/17 16:05 11/04/17 16:12 Urine Collection Type CLEAN CATCH Urine Color YELLOW Urine Turbidity CLEAR Urine pH 6.5 Urine Specific [place] 1.010 Urine Protein NEG mg/dL Urine Glucose (UA) NEG mg/dL Urine Ketones NEG mg/dL Urine Occult Blood MOD Urine Nitrite NEG Urine Bilirubin NEG Urine Urobilinogen 0.2 MG/DL Urine Leukocyte Esterase NEG Urine RBC 15-19 /hpf Urine WBC 0-2 /hpf Urine Squamous Epithelial Cells 0-5 /hpf Microscopic Urinalysis Comment CULT NOT INDICATED Urine Collection Time 16:05 White Blood Count 17.3 TH/MM3 Red Blood Count 3.26 MIL/MM3 Hemoglobin 9.6 GM/DL Hematocrit 27.7 % Mean Corpuscular Volume 85.0 FL Mean Corpuscular Hemoglobin 29.6 PG Mean Corpuscular Hemoglobin Concent 34.8 % Red Cell Distribution Width 14.8 % Platelet Count 395 TH/MM3 Mean Platelet Volume 7.8 FL Neutrophils (%) (Auto) 68.8 % Lymphocytes (%) (Auto) 13.5 % Monocytes (%) (Auto) 13.6 % Eosinophils (%) (Auto) 2.9 % Basophils (%) (Auto) 1.2 % Neutrophils # (Auto) 12.0 TH/MM3 Lymphocytes # (Auto) 2.3 TH/MM3 Monocytes # (Auto) 2.3 TH/MM3 Eosinophils # (Auto) 0.5 TH/MM3 Basophils # (Auto) 0.2 TH/MM3 CBC Comment DIFF FINAL Differential Comment Prothrombin Time 13.2 SEC Prothromb Time International Ratio 1.3 RATIO Activated Partial Thromboplast Time 30.6 SEC Blood Urea Nitrogen 16 MG/DL Creatinine 0.82 MG/DL Random Glucose 92 MG/DL Total Protein 6.3 GM/DL Albumin 2.5 GM/DL Calcium Level 8.5 MG/DL Alkaline Phosphatase 368 U/L Aspartate Amino Transf (AST/SGOT) 33 U/L Alanine Aminotransferase (ALT/SGPT) 23 U/L Total Bilirubin 1.7 MG/DL Sodium Level 135 MEQ/L Potassium Level 2.9 MEQ/L Chloride Level 100 MEQ/L Carbon Dioxide Level 26.4 MEQ/L Anion Gap 9 MEQ/L Estimat Glomerular Filtration Rate 99 ML/MIN Lipase 79 U/L MDM Medical Decision Making Medical Screen Exam Complete: Yes Emergency Medical Condition: Yes Medical Record Reviewed: Yes Interpretation(s) Vital Signs Date Time Temp Pulse Resp B/P (MAP) Pulse Ox O2 Delivery O2 Flow Rate FiO2 11/04/17 15:24 98.9 114 17 101/54 (70) 95 Differential Diagnosis Intra-abdominal abscess, Crohn's exacerbation, abdominal hernia, small bowel obstruction, gastritis, gastroenteritis Narrative Course 52-year-old male who presents the emergency room with complaints of abdominal pain, he recently had resection of his terminal ileum as well as ascending colon on October 19, [address] for acute Crohn's exacerbation. During the course of the patients emergency department visit, the patients history, examination, and differential diagnosis were reviewed with the patient. The patient was placed on a project construction manager with oximetry and frequent blood pressure monitoring. The patient had an IV access obtained and blood work sent for analysis. The patient was initially provided IV fluids as well as IV morphine.. The patients laboratory studies were reviewed and remarkable for CBC & BMP Diagram 11/04/17 16:12 Total Protein 6.3 L, Albumin 2.5 L, Calcium Level 8.5, Alkaline Phosphatase 368 H, Aspartate Amino Transf (AST/SGOT) 33, Alanine Aminotransferase (ALT/SGPT) 23 , Total Bilirubin 1.7 H Radiology studies were reviewed and remarkable for: Last Impressions Abdomen/Pelvis CT 11/04/17 1547 Signed Impressions: Service Date/Time: Monday, November 04, 2017 16:29 - CONCLUSION: 1. Status post resection of the ileocecal junction. There is thickening of the anastomosed distal small bowel. The small bowel thickening appears somewhat less prominent on current exam. 2. There is also some focal thickening of the proximal transverse colon. 3. Large amount of stool throughout colon. 4. Nonobstructing right renal stone. 5. Tiny gallstone. 6. TIPS shunt. Oc Foster MD Labs reviewed, patient with a leukocytosis with a white blood cell count of 17, 300, this has improved from when he was discharged on October 31, 2017 when white blood cell count was 19.3. HGB 9.6 which is at baseline (8.7 is pt's average hgb) Patient's potassium 2.9 -30 mg of potassium was ordered as well as 40 mEq of IV potassium. CT of the abdomen and pelvis shows an area of focal density in the anterior right lower lobe of his lungs which represents atelectasis versus consolidation , patient reports that he does have a nonproductive cough, he was recently treated for pneumonia and is trying to take deep breaths to prevent pneumonia. Plan to start him on antibiotics given his persistent dry cough. As per patients bowel, there is thickening of the anastomosis distal small bowel. The small bowel thickening appears somewhat less prominent on current exam. There is some focal thickening of the proximal transverse colon with large stool throughout the colon. Call made to Dr. Lane to review case. Patient does have an appointment with him on Monday for a postop appointment. Patient does feel comfortable going home if everything is normal. Case reviewed with Dr. Mccrary, patient can be discharged to home with follow up with Dr. Lane on Monday. All labs and studies were reviewed with patient in detail. He will return to the ER was needed. At discharge, patient endorses that he cannot be discharged due to severe abdominal pain. Reports that he pain is now and 9/10. He endorses that he has never had pain like this in the past, plan to have patient admitted to hospital for serial abdominal exams. case reviewed with Dr. Cazares who accepts pt to service Dr. Mccrary aware that patient will be admitted to hospital for pain control Diagnosis Primary Impression: Pneumonia Qualified Codes: J18.1 - Lobar pneumonia, unspecified organism Additional Impressions: Hypokalemia Abdominal pain Qualified Codes: R10.84 - Generalized abdominal pain Admitting Information Admitting Physician Requests: Observation Patient Instructions: General Instructions Additional Instructions: Please provide patient with a copy of their lab work and studies at discharge* * Please follow up with your primary care doctor in 2-3 days Return to the ER if symptoms worsen or progress Return to the ER as needed Please follow up with Dr. Lane on Monday as scheduled Please follow up with all cultures from today Med/Other Pt SpecificInfo: Prescription(s) given Scripts Levofloxacin (Levaquin) 750 Mg Tablet 750 MG PO DAILY for Infection for 7 Days, #7 TAB 0 Refills Prov: Cat Akins DO 11/04/17 Disposition: 01 DISCHARGE HOME Condition: Stable Cat Akins DO Nov 04, 2017 15:55
[2017-11-04] MEDS ORDERED: MORPHINE SULFATE 4 MG/ML INJ IV PUSH ONE (16:00)
[2017-11-04] MEDS ORDERED: SODIUM CHLORIDE 0.9% FLUSH 10 ML FLUSH IV FLUSH PRN ×2 (16:00→18:45)
[2017-11-04 16:42] LABS: BASOPHIL # 0.2 TH/MM3 (0-0.2); BASOPHIL % 1.2 % (0.0-2.0); EOSINOPHIL # 0.5 TH/MM3 (0-0.4); EOSINOPHIL % 2.9 % (0.0-4.0); HEMATOCRIT 27.7 % (39.0-51.0); HEMOGLOBIN 9.6 GM/DL (13.0-17.0); LYMPH % 13.5 % (9.0-44.0); LYMPHOCYTE # 2.3 TH/MM3 (1.0-4.8); MEAN CORPUSCULAR HEMOGLOBIN 29.6 PG (27.0-34.0); MEAN CORPUSCULAR HGB CONC 34.8 % (32.0-36.0); MEAN PLATELET VOLUME 7.8 FL (7.0-11.0); MONO % 13.6 % (0.0-8.0); MONOCYTE # 2.3 TH/MM3 (0-0.9); NEUT % 68.8 % (16.0-70.0); PLATELET COUNT 395 TH/MM3 (150-450); RED BLOOD COUNT 3.26 MIL/MM3 (4.50-5.90); RED CELL DISTRIBUTION WIDTH 14.8 % (11.6-17.2); WHITE BLOOD COUNT 17.3 TH/MM3 (4.0-11.0)
[2017-11-04 16:43] LABS: BILIRUBIN, URINE NEG (NEG); BLOOD, URINE MOD (NEG); GLUCOSE,URINE NEG (NEG); KETONE, URINE NEG (NEG); NITRITE,URINE NEG (NEG); PH, URINE 6.5 (5.0-8.5); URINE COLOR YELLOW (YELLW/STRAW); URINE LEUKOCYTE ESTERASE NEG (NEG)
[2017-11-04] MEDS ORDERED: IOHEXOL 350 MG/ML 10 ML VIAL (for RAD DIAG) IVCONTRAST ONE (16:43)
[2017-11-04 16:52] LABS: RBC, URINE 15-19 /hpf (0-3); SQUAMOUS EPITHELIAL CELL URINE 0-5 /hpf (0-5); WBC, URINE 0-2 /hpf (0-5)
[2017-11-04 16:57] LABS: INTERNATIONAL NORMALIZED RATIO 1.3 RATIO; PROTHROMBIN TIME - PATIENT 13.2 SEC (9.8-11.6)
--- NOTE | 2017-11-04 16:57 | RADRPT ---
EXAM DATE/TIME: 11/04/2017 16:29 [facility] COMPARISON: CT ABDOMEN & PELVIS W CONTRAST, October 15, 2017, 20:29. INDICATIONS : Abdominal pain 3 days post OP IV CONTRAST: 75 cc Omnipaque 350 (iohexol) IV ORAL CONTRAST: No oral contrast ingested. RADIATION DOSE: 4.53 CTDIvol (mGy) MEDICAL HISTORY : Cardiovascular disease. Hypertension. Chronic obstructive pulmonary disease.Crohns, gastritis, ascite s SURGICAL HISTORY : Colon resection. Orthopedic ENCOUNTER: Initial ACUITY: 1 day PAIN SCALE: 6/10 LOCATION: diffuse abdomen TECHNIQUE: Volumetric scanning of the abdomen and pelvis was performed. Using automated exposure control and ad justment of the mA and/or kV according to patient size, radiation dose was kept as low as reasonably achievable to obtain optimal diagnostic quality images. DICOM format image data is available electro nically for review and comparison. FINDINGS: LOWER LUNGS: There is a new area of focal density anterior right lower lobe. This likely represents a focal area o f consolidation or atelectasis. There is also some milder hazy density seen at the right middle lobe and left lingula likely related to atelectasis. LIVER: There is a TIPS shunt in place. There is a tiny calcified gallstone present. SPLEEN: The spleen appears prominent. PANCREAS: Within normal limits. KIDNEYS: Normal in size and shape. There is no mass or hydronephrosis. There is a 6 mm nonobstructing right r enal stone. ADRENAL GLANDS: Within normal limits. VASCULAR: There is no aortic aneurysm. BOWEL/MESENTERY: There is anastomosis sutures seen in the right lower quadrant between the small bowel and proximal co bryn. The anastomosed segment of small bowel appears thickened. There is focal thickening of the proxi mal transverse colon. There is a large amount of stool throughout the remaining aspect of the colon. Prominent lymph nodes are seen in the right lower quadrant. ABDOMINAL WALL: Surgical ha are seen in the midline. RETROPERITONEUM: There is no lymphadenopathy. BLADDER: No wall thickening or mass. REPRODUCTIVE: Within normal limits. INGUINAL: There is no lymphadenopathy. Prominent fat is seen within the right inguinal canal likely related to hernia. No bowel is seen. MUSCULOSKELETAL: Within normal limits for patient age. CONCLUSION: 1. Status post resection of the ileocecal junction. There is thickening of the anastomosed distal sma ll bowel. The small bowel thickening appears somewhat less prominent on current exam. 2. There is also some focal thickening of the proximal transverse colon. 3. Large amount of stool throughout colon. 4. Nonobstructing right renal stone. 5. Tiny gallstone. 6. TIPS shunt. Oc Foster MD on November 04, 2017 at 16:45 Board Certified Radiologist. This report was verified electronically.
[2017-11-04 17:03] LABS: ALBUMIN 2.5 GM/DL (3.4-5.0); ALKALINE PHOSPHATASE 368 U/L (45-117); ALT (GPT) 23 U/L (12-78); AST (GOT) 33 U/L (15-37); BICARBONATE 26.4 MEQ/L (21.0-32.0); BLOOD UREA NITROGEN 16 MG/DL (7-18); CALCIUM 8.5 MG/DL (8.5-10.1); CHLORIDE 100 MEQ/L (98-107); CREATININE 0.82 MG/DL (0.60-1.30); GLOMERULAR FILTRATION RATE 99 ML/MIN (>89); GLUCOSE,RANDOM 92 MG/DL (74-106); SODIUM (NA) 135 MEQ/L (136-145); TOTAL BILIRUBIN ADULT 1.7 MG/DL (0.2-1.0); TOTAL PROTEIN 6.3 GM/DL (6.4-8.2)
[2017-11-04] MEDS ORDERED: POTASSIUM CHLORIDE 10 MEQ CONTROLLED RELEASE TAB PO ONE (17:30)
[2017-11-04] MEDS ORDERED: POTASSIUM CHLOR 20 MEQ PREMIX 100 ML IV SCH (17:30)
[2017-11-04] MEDS ORDERED: LEVOFLOXACIN 750 MG PREMIX INJ 150 ML IV ONE (17:45)
[2017-11-04 18:14] VITALS: O2SAT 97
[2017-11-04] MEDS ORDERED: LEVA750T9 PO (18:24)
[2017-11-04] MEDS ORDERED: oxyCODONE/ACETAMINOPHEN 5 MG/325 MG TAB PO PRN (18:45)
[2017-11-04] MEDS ORDERED: NALOXONE HCL 0.4 MG/ML AMP IV PUSH PRN (18:45)
[2017-11-04] MEDS ORDERED: ACETAMINOPHEN/HYDROcodone 325 MG/10 MG TAB PO PRN (18:45)
[2017-11-04] MEDS ORDERED: MAGNESIUM HYDROXIDE SUSP 30 ML CUP PO PRN (18:45)
[2017-11-04] MEDS ORDERED: ONDANSETRON HCL 4 MG/2 ML VIAL IVP PRN (18:45)
[2017-11-04] MEDS ORDERED: ALPRAZolam 0.5 MG TAB PO PRN (19:00)
[2017-11-04 19:18] VITALS: RESP 16
[2017-11-04 20:48] VITALS: BP 96/60
[2017-11-04] MEDS ORDERED: FUROSEMIDE 40 MG TAB PO SCH (21:00)
[2017-11-04] MEDS ORDERED: SODIUM CHLORIDE 0.9% FLUSH 10 ML FLUSH IV FLUSH SCH (21:00)
== END 2017-11-04 20:45 | disposition left against medical advice (07) ==
LOC: PHED 15:17 → PHEDA 18:49
PROVIDERS: ADMIT Hospitalist; ATTEND Hospitalist
DX: J44.0 Chronic obstructive pulmonary disease with (acute) lower respiratory infection (principal); J18.1 Lobar pneumonia, unspecified organism; E87.6 Hypokalemia; R10.84 Generalized abdominal pain; N20.0 Calculus of kidney; K80.20 Calculus of gallbladder without cholecystitis without obstruction; K50.90 Crohn's disease, unspecified, without complications; K21.9 Gastro-esophageal reflux disease without esophagitis; F32.9 Major depressive disorder, single episode, unspecified; M19.90 Unspecified osteoarthritis, unspecified site
CPT/HCPCS: 74177; 80053; 81001; 83690; 85025; 85610; 85730; 87040; 96361; 96365; 96375; 96376; 99285; G0378; J1956; J2270; J3480; J7030; Q9967

== ENCOUNTER 2017-11-09 11:58 | Inpatient (IN) | payer MEDICAID, OTHER ==
[2017-11-09] VITALS (45 sets, daily range): BP systolic 75–111; BP diastolic 28–77; PULSE 76–94; RESP 14–23; TEMP 97.4–98.6; O2SAT 90–100
[~2017-11-09] VITALS: Ht 182.9 cm; Wt 51.3 kg
[~2017-11-09 11:58] MED LIST changes: -ALBUAER3 INH; -ALDA50TA2 PO; +LEVA750T9 PO; -PANT40TA3 PO; -POTA20TA5 PO
--- NOTE | 2017-11-09 12:11 | PD ---
HPI Chief Complaint: Abdominal Pain Time Seen by Provider: 12:10 Travel History International Travel<30 days: No Contact w/Intl Traveler<30days: No Traveled to known affect area: No History of Present Illness HPI 52-year-old male came to the emergency room with history of generalized weakness and not feeling well for past couple days. Patient appears to be in significant distress and looks lethargic to give too much of detailed history. However patient was recently operated and had a terminal ileum resection done by Dr. Lane approximately a week to 10 days ago. He has been managing his own wound care at home. Patient was in the emergency room 3-4 days ago for abdominal pain and was evaluated along with blood test and CAT scan. However currently patient says that he has not been feeling well. Vital signs were significant for hypotension with blood pressure of 82/45 in triage. Patient has history of Crohn's disease. Once again due to being poor historian it is hard to get too much of detailed history from this patient. FORMERLY [facility] Past Medical History Narrative Medical List of his past medical, surgical, social and family history reviewed from the nursing note. Hx Anticoagulant Therapy: No Arthritis: Yes Asthma: Yes Autoimmune Disease: No Blood Disorders: No Anxiety: No Depression: Yes Heart Rhythm Problems: Yes Cancer: No Cardiovascular Problems: Yes High Cholesterol: No Chest Pain: No Congestive Heart Failure: No COPD: Yes Cerebrovascular Accident: No Diabetes: No Diminished Hearing: No Endocrine: No Gastrointestinal Disorders: Yes (CROHNS, gastritis, ascites) GERD: Yes Genitourinary: Yes Headaches: Yes Hiatal Hernia: Yes Hypertension: Yes Immune Disorder: No Inguinal Hernia: Yes Implanted Vascular Access Dvce: No Kidney Stones: Yes Musculoskeletal: Yes (BILAT KNEES.) Neurologic: Yes Psychiatric: Yes Reproductive: No Respiratory: Yes (COPD) Immunizations Current: Yes Migraines: No Pancreatitis: Yes Renal Failure: No Seizures: No Sleep Apnea: No Thyroid Disease: No Ulcer: No Past Surgical History Abdominal Surgery: Yes (COLON RESECTION DUE TO CROHNS) Arteriovenous Shunt: No Cardiac Surgery: No Ear Surgery: No Endocrine Surgery: No Eye Surgery: No Genitourinary Surgery: No Gynecologic Surgery: No Insulin Pump: No Joint Replacement: No Neurologic Surgery: No Oral Surgery: No Pacemaker: No Thoracic Surgery: No Tonsillectomy: Yes Other Surgery: Yes (CROHN'S DISEASE) Social History Alcohol Use: No Tobacco Use: Yes (1/2 PPD) Substance Use: No Allergies-Medications (Allergen,Severity, Reaction): Coded Allergies: tetanus toxoid, adsorbed (Verified Allergy, Severe, Nausea/Vomiting, ) Comments List of his allergies reviewed from the nursing note. Reported Meds & Prescriptions Reported Meds & Active Scripts Active Levaquin (Levofloxacin) 750 Mg Tablet 750 Mg PO DAILY 7 Days Furosemide 40 Mg Tab 40 Mg PO BID [place] (Hydrocodone-Acetaminophen) 7.5-325 mg Tab 1 Tab PO Q4H PRN 3 Days Reported Xanax (Alprazolam) 0.5 Mg Tab 0.5 Mg PO DAILY PRN Narrative Medication List of his home medications reviewed from the nursing note. Review of Systems ROS Limitations: Poor Historian Except as stated in HPI: all other systems reviewed are Neg Physical Exam Narrative GENERAL: Lethargic, moderate distress, emaciated SKIN: Focused skin assessment warm/dry. HEAD: Atraumatic. Normocephalic. EYES: Pupils equal and round. No scleral icterus. No injection or drainage. ENT: No nasal bleeding or discharge. Mucous membranes pink and moist. NECK: Trachea midline. No JVD. CARDIOVASCULAR: Regular rate and rhythm. No murmur appreciated. RESPIRATORY: No accessory muscle use. Clear to auscultation. Breath sounds equal bilaterally. GASTROINTESTINAL: Abdomen soft, non-tender, nondistended. Hepatic and splenic margins not palpable. Midline surgical incision with wound dehiscence of 2 inch long on the superior aspect of the wound. There is serosanguineous drainage which is soaking the wound dressing. No foul odor. MUSCULOSKELETAL: No obvious deformities. No clubbing. No cyanosis. No edema. NEUROLOGICAL: Awake and alert. No obvious cranial nerve deficits. Motor grossly within normal limits. Normal speech. PSYCHIATRIC: Appropriate mood and affect; insight and judgment normal. Data Data Last Documented VS Vital Signs Date Time Temp Pulse Resp B/P (MAP) Pulse Ox O2 Delivery O2 Flow Rate FiO2 11/09/17 14:30 16 11/09/17 14:24 80 89/49 (62) 11/09/17 14:00 99 Nasal Cannula 2.00 11/09/17 12:38 98.0 Orders Orders Sepsis Workup Initiated (11/09/17 ) Complete Blood Count With Diff (11/09/17 12:25) Comprehensive Metabolic Panel (11/09/17 12:25) Lactic Acid Sepsis Protocol (11/09/17 12:25) Urinalysis - C+S If Indicated (11/09/17 12:25) Blood Culture (11/09/17 12:25) Chest, Single Ap (11/09/17 12:25) Blood Glucose (11/09/17 12:25) Ecg Monitoring (11/09/17 12:25) Iv Access Insert/Monitor (11/09/17 12:25) Oximetry (11/09/17 12:25) Oxygen Administration (11/09/17 12:25) Piperacil-Tazo 4.5 Gm Premix (Zosyn 4.5 (11/09/17 12:25) Vancomycin Inj (Vancomycin Inj) (11/09/17 12:25) Sodium Chlor 0.9% 1000 Ml Inj (Ns 1000 M (11/09/17 12:25) Sodium Chlor 0.9% 1000 Ml Inj (Ns 1000 M (11/09/17 12:25) Electrocardiogram (11/09/17 ) Potassium Chlor 10 Meq Premix (Kcl 10 Me (11/09/17 14:00) Potassium Chloride (Kcl) (11/09/17 14:00) Urinary Catheter Insert/Apply (11/09/17 13:51) Sodium Chlor 0.9% 1000 Ml Inj (Ns 1000 M (11/09/17 14:15) Admit Order (Ed Use Only) (11/09/17 14:31) Labs Laboratory Tests Test 11/09/17 12:30 11/09/17 14:00 White Blood Count 19.6 TH/MM3 Red Blood Count 3.39 MIL/MM3 Hemoglobin 9.4 GM/DL Hematocrit 28.8 % Mean Corpuscular Volume 84.8 FL Mean Corpuscular Hemoglobin 27.8 PG Mean Corpuscular Hemoglobin Concent 32.8 % Red Cell Distribution Width 15.1 % Platelet Count 368 TH/MM3 Mean Platelet Volume 7.3 FL CBC Comment AUTO DIFF Differential Total Cells Counted 100 Neutrophils % (Manual) 77 % Band Neutrophils % 7 % Lymphocytes % 7 % Monocytes % 5 % Eosinophils % 3 % Neutrophils # (Manual) 16.7 TH/MM3 Metamyelocytes 1 % Differential Comment FINAL DIFF MANUAL Platelet Estimate NORMAL Platelet Morphology Comment NORMAL Blood Urea Nitrogen 15 MG/DL Creatinine 1.10 MG/DL Random Glucose 75 MG/DL Total Protein 5.7 GM/DL Albumin 2.2 GM/DL Calcium Level 7.9 MG/DL Alkaline Phosphatase 255 U/L Aspartate Amino Transf (AST/SGOT) 12 U/L Alanine Aminotransferase (ALT/SGPT) 19 U/L Total Bilirubin 1.6 MG/DL Sodium Level 143 MEQ/L Potassium Level 2.6 MEQ/L Chloride Level 112 MEQ/L Carbon Dioxide Level 20.4 MEQ/L Anion Gap 11 MEQ/L Estimat Glomerular Filtration Rate 70 ML/MIN Lactic Acid Level 1.4 mmol/L Urine Collection Type CATH Urine Color YELLOW Urine Turbidity CLEAR Urine pH 6.0 Urine Specific [place] 1.010 Urine Protein NEG mg/dL Urine Glucose (UA) NEG mg/dL Urine Ketones NEG mg/dL Urine Occult Blood TRACE Urine Nitrite NEG Urine Bilirubin NEG Urine Urobilinogen 0.2 MG/DL Urine Leukocyte Esterase NEG Urine RBC 0-3 /hpf Urine WBC 0-2 /hpf Urine Hyaline Casts 6-9 /lpf Microscopic Urinalysis Comment CATH-CULT NOT IND Urine Collection Time 14:00 [facility] Medical Decision Making Medical Screen Exam Complete: Yes Emergency Medical Condition: Yes Medical Record Reviewed: Yes Interpretation(s) Twelve-lead EKG was reviewed by me. Normal sinus rhythm, normal axis, nonspecific ST-T wave changes. Heart rate of 80 bpm. Differential Diagnosis Sepsis, septic shock, dehydration, electrolyte abnormality Narrative Course 1:47 PM blood test results are back and it is significant for leukocytosis with a left shift and some bandemia as well as hypokalemia. Lactic acid is within normal range and anion gap is within normal range. Patient was given 2 L of IV fluid and blood pressure currently is in the 90s systolic. Patient was also given IV Zosyn and vancomycin in anticipation of sepsis. Compared to his blood test that was done 3-4 days ago white count has gone up and the hypokalemia has worsened. I discussed the case with Dr. Lane and he said that he saw the patient 2 days ago in his office. He took some ha out from the superior aspect of the surgical incision and he is aware of the wound opening. He did not think that this had anything to do with surgical infection. Patient had a CAT scan done last time when he was in the emergency room and that was negative for any abscess or infection. In his opinion patient might have been aggressively diuresed which could have led to the hypotension and dehydration. His recommendation was to give the patient fluid bolus. He would consult the patient if the patient is admitted. Patient is in no condition to be discharged home. I will order potassium replacement as well. He said it was okay to keep the patient in [place]. Awaiting for the hospitalist to call back. Patient will require ICU admission. 2:59 PM patient dropped his blood pressure to the 80s was 2 L of fluid bolus was over. I ordered a 3 L. Given the degree of hypotension and shock I have decided to admit the patient to the it help desk analyst. I discussed the case with Dr. Hopper who has accepted the patient. Critical Care Narrative Aggregate critical care time was 60 minutes. Time to perform other separately billable procedures was not included in the critical care time. My time did not include minutes spent treating any other patients simultaneously or on activities that did not directly contribute to the patient's treatment. The services I provided to this patient were to treat and/or prevent clinically significant deterioration that could result in: Hypotension, sepsis, fluid resuscitation, hypokalemia, IV potassium replacement, sepsis protocol I provided critical care services requiring my management, as noted below: Chart data review, documentation time, medication orders and management, vital sign assessments/reviewing monitor data, ordering and reviewing lab tests, ordering and interpreting/reviewing x-rays and diagnostic studies, care of the patient and discussion of the patient with the admitting physicians. Procedures EKG Prior to Arrival: No Physician Communication Physician Communication Dr. Lane, Dr. Hopper Diagnosis Primary Impression: Sepsis Qualified Codes: A41.9 - Sepsis, unspecified organism Additional Impressions: Hypokalemia Hypotension Qualified Codes: I95.9 - Hypotension, unspecified Dehydration History of resection of terminal ileum Crohns disease Qualified Codes: K50.818 - Crohn's disease of both small and large intestine with other complication Wound dehiscence Septic shock Admitting Information Admitting Physician Requests: Yanira Fontenot MD November 09, 2017 12:11
[2017-11-09] MEDS ORDERED: SODIUM CHLOR 0.9% 1000 ML INJ 800 ML IV ONE (12:25)
[2017-11-09] MEDS ORDERED: PIPERACIL-TAZO 4.5 GM PREMIX 100 ML IV STA (12:25)
[2017-11-09] MEDS ORDERED: VANCOMYCIN INJ 1,000 MG in SODIUM CHLOR 0.9% 250 ML INJ 250 ML IV STA (12:25)
[2017-11-09] MEDS ORDERED: SODIUM CHLOR 0.9% 1000 ML INJ 1,000 ML IV ONE ×2 (12:25→14:15)
[2017-11-09 12:40] LABS: HEMATOCRIT 28.8 % (39.0-51.0); HEMOGLOBIN 9.4 GM/DL (13.0-17.0); MEAN CELL VOLUME 84.8 FL (80.0-100.0); MEAN CORPUSCULAR HEMOGLOBIN 27.8 PG (27.0-34.0); MEAN CORPUSCULAR HGB CONC 32.8 % (32.0-36.0); MEAN PLATELET VOLUME 7.3 FL (7.0-11.0); PLATELET COUNT 368 TH/MM3 (150-450); RED BLOOD COUNT 3.39 MIL/MM3 (4.50-5.90); RED CELL DISTRIBUTION WIDTH 15.1 % (11.6-17.2); WHITE BLOOD COUNT 19.6 TH/MM3 (4.0-11.0)
[2017-11-09 12:51] LABS: CALCIUM 7.9 MG/DL (8.5-10.1)
[2017-11-09 12:52] LABS: ALBUMIN 2.2 GM/DL (3.4-5.0); BICARBONATE 20.4 MEQ/L (21.0-32.0); BLOOD UREA NITROGEN 15 MG/DL (7-18); GLUCOSE,RANDOM 75 MG/DL (74-106)
[2017-11-09 12:55] LABS: ALT (GPT) 19 U/L (12-78); AST (GOT) 12 U/L (15-37); GLOMERULAR FILTRATION RATE 70 ML/MIN (>89)
[2017-11-09 12:56] LABS: TOTAL BILIRUBIN ADULT 1.6 MG/DL (0.2-1.0); TOTAL PROTEIN 5.7 GM/DL (6.4-8.2)
[2017-11-09 12:58] LABS: ALKALINE PHOSPHATASE 255 U/L (45-117)
--- NOTE | 2017-11-09 13:03 | RADRPT ---
EXAM DATE/TIME: 11/09/2017 12:43 [facility] COMPARISON: CT PULMONARY ANGIOGRAM, October 22, 2017, 15:00. CHEST SINGLE AP, October 28, 2017, 22:13. INDICATIONS : Fever and shortness of breath. MEDICAL HISTORY : Cardiovascular disease. Hypertension. Chronic obstructive pulmonary disease.Crohns, gastritis, ascite s, SURGICAL HISTORY : Colon resection. Orthopedic ENCOUNTER: Initial ACUITY: 1 day PAIN SCORE: 0/10 LOCATION: Bilateral chest FINDINGS: The exam demonstrates patchy areas of bilateral parenchymal infiltrate. The heart is normal in size. The mediastinal contours are unremarkable. The visualized bony structures are grossly intact. CONCLUSION: 1. Patchy, diffuse parenchymal infiltrates unchanged from previous. Jus Rodrigez MD on November 09, 2017 at 13:00 Board Certified Radiologist. This report was verified electronically.
[2017-11-09 13:15] LABS: CHLORIDE 112 MEQ/L (98-107); SODIUM (NA) 143 MEQ/L (136-145)
[2017-11-09 13:28] LABS: BANDS 7 % (0-6); LYMPHOCYTES 7 % (9-44); METAMYELOCYTES 1 % (0-1); MONOCYTES 5 % (0-8); NEUTROPHIL # MANUAL DIFF 16.7 TH/MM3 (1.8-7.7); POLYS (SEG NEUTROPHILS) 77 % (16-70)
[2017-11-09] MEDS ORDERED: POTASSIUM CHLORIDE 20 MEQ CONTROLLED RELEASE TAB PO ONE (14:00)
[2017-11-09 14:03] LABS: BILIRUBIN, URINE NEG (NEG); BLOOD, URINE TRACE (NEG); GLUCOSE,URINE NEG (NEG); KETONE, URINE NEG (NEG); NITRITE,URINE NEG (NEG); URINE COLOR YELLOW (YELLW/STRAW); URINE LEUKOCYTE ESTERASE NEG (NEG)
[2017-11-09] MEDS: POTASSIUM CHLOR 10 MEQ PREMIX 100 ML IV SCH ×3 (14:19→18:35)
[2017-11-09 14:21] LABS: RBC, URINE 0-3 /hpf (0-3); WBC, URINE 0-2 /hpf (0-5)
[2017-11-09] MEDS ORDERED: SODIUM CHLOR 0.9% 1000 ML INJ 1,000 ML IV SCH (14:36)
[2017-11-09] MEDS ORDERED: NURSING INFORMATION XX SCH (14:45)
[2017-11-09] MEDS ORDERED: SODIUM CHLORIDE 0.9% FLUSH 10 ML FLUSH IV FLUSH PRN (14:45)
[2017-11-09] MEDS ORDERED: CHLORHEXIDINE GLUCONATE 2 % 1 PACK (2 CLOTHS) TOP PRN (14:45)
[2017-11-09] MEDS ORDERED: RESP: ALBUTEROL 2.5 MG/IPRATROPIUM 0.5 MG NEB (PRN) NEB (15:00)
[2017-11-09] MEDS ORDERED: Vancomycin Consult Pharmacy 1 EA OTHER SCH (15:00)
[2017-11-09] MEDS: ENOXAPARIN SODIUM 40 MG/0.4 ML SYRINGE SQ SCH (15:21)
--- NOTE | 2017-11-09 17:22 | HHI.HP ---
HPI Service Critical Care Medicine Primary Care Physician Unknown Admission Diagnosis septic shock, s/p terminal ileum resection Diagnosis: Travel History International Travel<30 Days: No Contact w/Intl Traveler <30 Da: No Traveled to Known Affected Are: No History of Present Illness HPI 52-year-old male with a medical history significant for Crohn's disease who underwent E lap with terminal ileum/ascending colon resection by Dr. Lane on . Patient was subsequently discharged on 10/31. He presented back to the ER on 11/04 with abdominal pain underwent labs and CAT scan and was subsequently discharged from the ER and followed up with Dr. Lane. He did develop some wound dehiscence and the upper part of his incision site and some ha were removed by Dr. Lane. Patient presented back to the ER on 11/09 as he was not feeling well with generalized weakness and abdominal pain and was noted to be hypotensive in the ER with a leukocytosis. He received 2 L normal saline bolus and was given empiric Zosyn for antibiotic coverage. Dr. Pryor spoke with Dr. Lane. Patient was accepted for admission by critical care medicine service and is being admitted to the ICU. When I evaluated the patient he was laying in the ER stretcher with systolic blood pressure in the 90s having received 2 L normal saline bolus. He was complaining of pain all over at the time. He denied any shortness of breath nausea or vomiting currently. He denied any melena or rectal bleeding. Denies any fever or chills. He did have slight dehiscence of his upper abdominal incision site with foul smell but minimal discharge. History was obtained by reviewing records and discussion with the ER physician. Patient is not a very good historian. He also reportedly has a history of cirrhosis and has had a TIPS procedure in June 2017. He has been on diuretics at home. History PFSH Past Medical History Narrative Medical List of his past medical, surgical, social and family history reviewed from the nursing note. Hx Anticoagulant Therapy: No Arthritis: Yes Asthma: Yes Autoimmune Disease: No Blood Disorders: No Anxiety: No Depression: Yes Heart Rhythm Problems: Yes Cancer: No Cardiovascular Problems: Yes High Cholesterol: No Chest Pain: No Congestive Heart Failure: No COPD: Yes Cerebrovascular Accident: No Diabetes: No Diminished Hearing: No Endocrine: No Gastrointestinal Disorders: Yes (CROHNS, gastritis, ascites) GERD: Yes Genitourinary: Yes Headaches: Yes Hiatal Hernia: Yes Hypertension: Yes Immune Disorder: No Inguinal Hernia: Yes Implanted Vascular Access Dvce: No Kidney Stones: Yes Musculoskeletal: Yes (BILAT KNEES.) Neurologic: Yes Psychiatric: Yes Reproductive: No Respiratory: Yes (COPD) Immunizations Current: Yes Migraines: No Pancreatitis: Yes Renal Failure: No Seizures: No Sleep Apnea: No Thyroid Disease: No Ulcer: No Past Surgical History Abdominal Surgery: Yes (COLON RESECTION DUE TO CROHNS) Arteriovenous Shunt: No Cardiac Surgery: No Ear Surgery: No Endocrine Surgery: No Eye Surgery: No Genitourinary Surgery: No Gynecologic Surgery: No Insulin Pump: No Joint Replacement: No Neurologic Surgery: No Oral Surgery: No Pacemaker: No Thoracic Surgery: No Tonsillectomy: Yes Other Surgery: Yes (CROHN'S DISEASE) Social History Alcohol Use: No Tobacco Use: Yes (/2 PPD) Substance Use: No Allergies-Medications Allergies-Medications (Allergen,Severity, Reaction): Coded Allergies: tetanus toxoid, adsorbed (Verified Allergy, Severe, Nausea/Vomiting, ) Comments List of his allergies reviewed from the nursing note. Reported Meds & Prescriptions Reported Meds & Active Scripts Active Levaquin (Levofloxacin) 750 Mg Tablet 750 Mg PO DAILY 7 Days Furosemide 40 Mg Tab 40 Mg PO BID [place] (Hydrocodone-Acetaminophen) 7.5-325 mg Tab 1 Tab PO Q4H PRN 3 Days Reported Xanax (Alprazolam) 0.5 Mg Tab 0.5 Mg PO DAILY PRN Narrative Medication List of his home medications reviewed from the nursing note. ROS Review of Systems ROS Limitations: Poor Historian Except as stated in HPI: all other systems reviewed are Neg Past Family Social History Allergies: Coded Allergies: tetanus toxoid, adsorbed (Verified Allergy, Severe, Nausea/Vomiting, ) Physical Exam Vital Signs Vital Signs Date Time Temp Pulse Resp B/P (MAP) Pulse Ox O2 Delivery O2 Flow Rate FiO2 11/09/17 16:15 16 11/09/17 16:15 87 16 90/48 (62) 100 Nasal Cannula 2.00 11/09/17 16:00 81 16 94/52 (66) 100 Nasal Cannula 2.00 11/09/17 15:30 83 16 97/49 (65) 100 Nasal Cannula 11/09/17 15:05 84 16 87/55 (66) 11/09/17 14:57 83 16 88/48 (61) 100 Nasal Cannula 2.00 11/09/17 14:51 98 Nasal Cannula 2.00 11/09/17 14:30 16 11/09/17 14:24 80 16 89/49 (62) 11/09/17 14:00 76 16 87/46 (60) 99 Nasal Cannula 2.00 11/09/17 13:06 80 16 92/51 (65) 99 Nasal Cannula 2.00 11/09/17 13:00 80 16 92/51 (65) 99 Nasal Cannula 2.00 11/09/17 12:40 83 16 80/43 (55) 99 Room Air 11/09/17 12:38 98.0 82 16 81/47 (58) 99 Room Air 11/09/17 12:35 16 11/09/17 12:35 16 99 Nasal Cannula 2.00 11/09/17 12:35 99 Nasal Cannula 2.00 11/09/17 12:06 98.6 91 16 86/46 (59) 100 Physical Exam Narrative GENERAL: Middle-aged male laying in bed, appears emaciated, not in any acute distress SKIN: Focused skin assessment warm/dry. HEAD: Atraumatic. Normocephalic. EYES: Pupils equal and round. No scleral icterus. No injection or drainage. ENT: No nasal bleeding or discharge. Mucous membranes pink and moist. NECK: Trachea midline. No JVD. CARDIOVASCULAR: Regular rate and rhythm. No murmur appreciated. RESPIRATORY: No accessory muscle use. Clear to auscultation. Breath sounds equal bilaterally. GASTROINTESTINAL: Abdomen soft, non-tender, nondistended. Hepatic and splenic margins not palpable. Midline surgical incision with wound dehiscence of 2 inch long on the superior aspect of the wound. There is serosanguineous drainage which is soaking the wound dressing. Some foul odor noted. MUSCULOSKELETAL: No obvious deformities. No clubbing. No cyanosis. No edema. NEUROLOGICAL: Awake and alert. No obvious cranial nerve deficits. Motor grossly within normal limits. Normal speech. PSYCHIATRIC: Appropriate mood and affect; insight and judgment normal. Laboratory Laboratory Tests Test 11/09/17 12:30 11/09/17 14:00 White Blood Count 19.6 Red Blood Count 3.39 Hemoglobin 9.4 Hematocrit 28.8 Mean Corpuscular Volume 84.8 Mean Corpuscular Hemoglobin 27.8 Mean Corpuscular Hemoglobin Concent 32.8 Red Cell Distribution Width 15.1 Platelet Count 368 Mean Platelet Volume 7.3 CBC Comment AUTO DIFF Differential Total Cells Counted 100 Neutrophils % (Manual) 77 Band Neutrophils % 7 Lymphocytes % 7 Monocytes % 5 Eosinophils % 3 Neutrophils # (Manual) 16.7 Metamyelocytes 1 Differential Comment FINAL DIFF MANUAL Platelet Estimate NORMAL Platelet Morphology Comment NORMAL Blood Urea Nitrogen 15 Creatinine 1.10 Random Glucose 75 Total Protein 5.7 Albumin 2.2 Calcium Level 7.9 Alkaline Phosphatase 255 Aspartate Amino Transf (AST/SGOT) 12 Alanine Aminotransferase (ALT/SGPT) 19 Total Bilirubin 1.6 Sodium Level 143 Potassium Level 2.6 Chloride Level 112 Carbon Dioxide Level 20.4 Anion Gap 11 Estimat Glomerular Filtration Rate 70 Lactic Acid Level 1.4 Urine Collection Type CATH Urine Color YELLOW Urine Turbidity CLEAR Urine pH 6.0 Urine Specific [place] 1.010 Urine Protein NEG Urine Glucose (UA) NEG Urine Ketones NEG Urine Occult Blood TRACE Urine Nitrite NEG Urine Bilirubin NEG Urine Urobilinogen 0.2 Urine Leukocyte Esterase NEG Urine RBC 0-3 Urine WBC 0-2 Urine Hyaline Casts 6-9 Microscopic Urinalysis Comment CATH-CULT NOT IND Urine Collection Time 14:00 Date/Time Source Procedure Growth Status 11/09/17 12:35 Blood Peripheral Aerobic Blood Culture Pending Received 11/09/17 12:35 Blood Peripheral Anaerobic Blood Culture Pending Received Result Diagram: 11/09/17 1230 11/09/17 1230 Imaging Last Impressions Chest X-Ray 11/09/17 1225 Signed Impressions: Service Date/Time: November 12:43 - CONCLUSION: 1. Patchy, diffuse parenchymal infiltrates unchanged from previous. Jus Rodrigez MD Septic Shock Reassessment Septic shock perfusion: reassessment completed Caprini VTE Risk Assessment Caprini VTE Risk Assessment: Mod/High Risk (score >= 2) Caprini Risk Assessment Model Point Value = 1 Point Value = 2 Point Value = 3 Point Value = 5 Age 41-60 Minor surgery BMI > 25 kg/m2 Swollen legs Varicose veins or History of unexplained or recurrent spontaneous Oral contraceptives or hormone replacement Sepsis (< 1 month) Serious lung disease, including pneumonia (< 1 month) Abnormal pulmonary function Acute myocardial infarction Congestive heart failure (< 1 month) History of inflammatory bowel disease Medical patient at bed rest Age 61-74 Arthroscopic surgery Major open surgery (> 45 min) Laparoscopic surgery (> 45 min) Malignancy Confined to bed (> 72 hours) Immobilizing plaster cast Central venous access Age >= 75 History of VTE Family history of VTE Factor V Leiden Prothrombin [id number] Lupus anticoagulant Anticardiolipin antibodies Elevated serum homocysteine Heparin-induced thrombocytopenia Other congenital or acquired thrombophilia Stroke (< 1 month) Elective arthroplasty Hip, pelvis, or leg fracture Acute spinal cord injury (< 1 month) Prophylaxis Regimen Total Risk Factor Score Risk Level Prophylaxis Regimen 0-1 Low Early ambulation 2 Moderate Order ONE of the following: *Sequential Compression Device (SCD) *Heparin 5000 units SQ BID 3-4 Higher Order ONE of the following medications: *Heparin 5000 units SQ TID *Enoxaparin/Lovenox 40 mg SQ daily (WT < 150 kg, CrCl > 30 mL/min) *Enoxaparin/Lovenox 30 mg SQ daily (WT < 150 kg, CrCl > 10-29 mL/min) *Enoxaparin/Lovenox 30 mg SQ BID (WT < 150 kg, CrCl > 30 mL/min) AND/OR *Sequential Compression Device (SCD) 5 or more Highest Order ONE of the following medications: *Heparin 5000 units SQ TID (Preferred with Epidurals) *Enoxaparin/Lovenox 40 mg SQ daily (WT < 150 kg, CrCl > 30 mL/min) *Enoxaparin/Lovenox 30 mg SQ daily (WT < 150 kg, CrCl > 10-29 mL/min) *Enoxaparin/Lovenox 30 mg SQ BID (WT < 150 kg, CrCl > 30 mL/min) AND *Sequential Compression Device (SCD) Assessment and Plan Assessment and Plan 52-year-old male with: Abdominal pain Hypotension Dehydration Sepsis Crohn's disease status post recent terminal ileum/ascending colon resection 10/19 Wound dehiscence History of cirrhosis status post previous TIPS Plan: Neuro: Percocet as needed for pain. Follow neuro status. Cardiovascular: Aggressive fluid resuscitation. If remains hypotensive despite IV fluids we will consider pressors. Hold diuretics. Pulmonary: Supplemental O2 as needed, bronchodilators as needed. GI/liver: P.o. diet as tolerated. Colorectal surgery Dr. Lane to be consulted for further evaluation of abdominal wound dehiscence following terminal ileum/ascending colon resection. Renal/: IV hydration, strict intake output, monitor and replete electrodes, follow BN creatinine. ID: Follow-up cultures. ID consult requested. Continue Zosyn for empiric antibiotic coverage. Heme: Follow CBC and coags. Endocrine: Patient has been on off steroids for Crohn's disease. Will add stress dose hydrocortisone 50 mg IV every 6 hourly in view of hypotension. Prophylaxis: Pepcid 20 mg p.o. twice daily for GI prophylaxis. Lovenox for DVT prophylaxis. Condition critical Time spent on critical care excluding procedures 60 minutes Paxton Hopper MD November 09, 2017 17:22
[2017-11-09] MEDS ORDERED: POTASSIUM PHOSPHATE INJ 30 MMOL in SODIUM CHLOR 0.9% 250 ML INJ 250 ML IV PRN (17:30)
[2017-11-09] MEDS ORDERED: MAGNESIUM OXIDE 400 MG TAB PO PRN (17:30)
[2017-11-09] MEDS ORDERED: POTASSIUM CHLOR 20 MEQ PREMIX 100 ML IV PRN (17:30)
[2017-11-09] MEDS ORDERED: POTASSIUM PHOSPHATE MONOBASIC 500 MG TAB PO/TUBE PRN (17:30)
[2017-11-09] MEDS ORDERED: POTASSIUM CHLOR 40 MEQ PREMIX 100 ML IV PRN (17:30)
[2017-11-09] MEDS ORDERED: MAGNESIUM SULFATE INJ 4 GM in SODIUM CHLORIDE 0.9% INJ 92 ML IV PRN (17:30)
[2017-11-09] MEDS ORDERED: SODIUM PHOSPHATE INJ 30 MMOL in SODIUM CHLOR 0.9% 250 ML INJ 240 ML IV PRN (17:30)
[2017-11-09] MEDS ORDERED: MAGNESIUM SULFATE INJ 2 GM in SODIUM CHLORIDE 0.9% INJ 96 ML IV PRN (17:30)
[2017-11-09] MEDS ORDERED: POTASSIUM PHOSPHATE MONOBASIC 500 MG TAB PO PRN (17:30)
[2017-11-09] MEDS: ALBUMIN 5% INJ 250 ML IV SCH (17:40)
[2017-11-09] MEDS ORDERED: LACTATED RINGER'S 1000 ML INJ 1,000 ML IV ONE (17:45)
[2017-11-09] MEDS ORDERED: VANCOMYCIN INJ 800 MG in SODIUM CHLOR 0.9% 250 ML INJ 250 ML IV ONE (18:13)
[2017-11-09] MEDS: DEXTROSE 5%-LACTATED RING INJ 1,000 ML IV SCH (18:14)
[2017-11-09] MEDS: HYDROCORTISONE SOD SUCCINATE 100 MG VIAL IV PUSH SCH (18:15)
[2017-11-09] MEDS ORDERED: PHENYLEPHRINE 40 MG in D5W 500 ML IV PRN (20:45)
[2017-11-09] MEDS ORDERED: TERBUTALINE INJ 1 MG/ML AMP SQ PRN (20:45)
--- NOTE | 2017-11-09 20:50 | PD.CONS ---
History of Present Illness Service ID CONSULT DR PARSONS Consult Requested By CRITICAL CARE TEAM Reason for Consult SEPSIS Primary Care Physician Unknown Diagnoses: (1) Tobacco use (2) History of resection of terminal ileum (3) Wound dehiscence (4) Crohns disease History of Present Illness 52 YR OLD MALE ADMITTED WITH ABDOMINAL PAIN AND WEAKNESS WITH CHILLS. HE HAS A LONG HISTORY OF CROHNS DISEASE AND HE WAS SEEN LAST MONTH HERE FOR COLON RESECTION. HE STATES HE DID HAVE 2 GOOD DAYS POST OP. HOWEVER THEN HE STARTED TO HAVE INCREASED DIARRHEA WITH ABDOMINAL PAIN AND CHILLS. HE SAW THE SURGEON OUTPATIENT AND HAD THE SUTURES REMOVED LAST WEEK AND THE WOUND DEHISCED. HE IS NOW ADMITTED WITH WBC OF 19. HE IS HYPOTENSIVE IN THE ICU. HE IS VERY WEAK. HE HAS A COARSE NON PRODUCTIVE COUGH. ID IS CONSULTED TO ASSIST WITH ANTIBIOTIC REGIMEN. HE IS CURRENTLY ON ZOSYN AND VANCOMYCIN. Review of Systems Constitutional: COMPLAINS OF: Fatigue, Fever, Weight gain, Weight loss Ears, nose, mouth, throat: DENIES: Oral lesions Respiratory: COMPLAINS OF: Cough, Shortness of breath, DENIES: Sputum production Cardiovascular: DENIES: Palpitations Gastrointestinal: DENIES: Bloody stools Genitourinary: DENIES: Urinary incontinence Musculoskeletal: DENIES: Joint Swelling Integumentary: DENIES: Pruritus Hematologic/lymphatic: DENIES: Lymphadenopathy Immunologic/allergic: DENIES: Urticaria Neurologic: COMPLAINS OF: Localized weakness, DENIES: Headache Past Family Social History Allergies: Coded Allergies: tetanus toxoid, adsorbed (Verified Allergy, Severe, Nausea/Vomiting, ) Past Medical History Past Medical History Narrative Medical List of his past medical, surgical, social and family history reviewed from the nursing note. Hx Anticoagulant Therapy: No Arthritis: Yes Asthma: Yes Autoimmune Disease: No Blood Disorders: No Anxiety: No Depression: Yes Heart Rhythm Problems: Yes Cancer: No Cardiovascular Problems: Yes High Cholesterol: No Chest Pain: No Congestive Heart Failure: No COPD: Yes Cerebrovascular Accident: No Diabetes: No Diminished Hearing: No Endocrine: No Gastrointestinal Disorders: Yes (CROHNS, gastritis, ascites) GERD: Yes Genitourinary: Yes Headaches: Yes Hiatal Hernia: Yes Hypertension: Yes Immune Disorder: No Inguinal Hernia: Yes Implanted Vascular Access Dvce: No Kidney Stones: Yes Musculoskeletal: Yes (BILAT KNEES.) Neurologic: Yes Psychiatric: Yes Reproductive: No Respiratory: Yes (COPD) Immunizations Current: Yes Migraines: No Pancreatitis: Yes Renal Failure: No Seizures: No Sleep Apnea: No Thyroid Disease: No Ulcer: No Past Surgical History Past Surgical History Abdominal Surgery: Yes (COLON RESECTION DUE TO CROHNS) Arteriovenous Shunt: No Cardiac Surgery: No Ear Surgery: No Endocrine Surgery: No Eye Surgery: No Genitourinary Surgery: No Gynecologic Surgery: No Insulin Pump: No Joint Replacement: No Neurologic Surgery: No Oral Surgery: No Pacemaker: No Thoracic Surgery: No Tonsillectomy: Yes Other Surgery: Yes (CROHN'S DISEASE) Family History NO HISTORY OF CROHNS NO CANCER Social History Social History Alcohol Use: No Tobacco Use: Yes (1/2 PPD) Substance Use: No Physical Exam Vital Signs Vital Signs Date Time Temp Pulse Resp B/P (MAP) Pulse Ox O2 Delivery O2 Flow Rate FiO2 11/09/17 19:04 88 21 93/49 (64) 100 11/09/17 18:54 88 20 80/57 (65) 100 11/09/17 18:45 92 18 92/54 (67) 96 11/09/17 18:40 90 19 93/57 (69) 98 11/09/17 18:35 92 20 100/77 (85) 99 11/09/17 18:35 92 11/09/17 18:30 94 11/09/17 18:30 94 21 96/48 (64) 100 11/09/17 18:25 92 23 95/53 (67) 100 11/09/17 18:25 92 11/09/17 18:20 90 11/09/17 18:20 90 17 90/50 (63) 99 11/09/17 18:15 90 11/09/17 18:15 90 17 91/51 (64) 100 11/09/17 18:10 90 18 87/51 (63) 99 11/09/17 18:10 90 11/09/17 18:05 90 11/09/17 18:05 90 18 86/47 (60) 99 11/09/17 18:03 88 11/09/17 18:03 88 18 89/47 (61) 99 11/09/17 18:00 88 11/09/17 18:00 88 21 92/49 (63) 98 11/09/17 17:57 88 20 85/51 (62) 11/09/17 17:57 88 11/09/17 17:55 90 11/09/17 17:55 90 23 82/46 (58) 11/09/17 17:54 88 18 81/28 (45) 90 11/09/17 17:54 88 11/09/17 17:50 90 14 78/39 (52) 100 11/09/17 17:50 90 11/09/17 17:45 90 11/09/17 17:45 90 20 82/42 (55) 99 11/09/17 17:40 90 17 76/45 (55) 11/09/17 17:40 90 11/09/17 17:35 88 11/09/17 17:35 88 21 85/44 (58) 11/09/17 17:30 86 18 75/51 (59) 99 11/09/17 17:30 86 11/09/17 17:27 84 18 83/46 (58) 98 11/09/17 17:27 84 11/09/17 17:13 86 11/09/17 17:13 86 20 95/48 (64) 91 11/09/17 17:00 97.7 11/09/17 16:30 81 16 94/51 (65) 99 11/09/17 16:15 16 11/09/17 16:15 87 16 90/48 (62) 100 Nasal Cannula 2.00 11/09/17 16:00 81 16 94/52 (66) 100 Nasal Cannula 2.00 11/09/17 15:30 83 16 97/49 (65) 100 Nasal Cannula 11/09/17 15:05 84 16 87/55 (66) 11/09/17 14:57 83 16 88/48 (61) 100 Nasal Cannula 2.00 11/09/17 14:51 98 Nasal Cannula 2.00 11/09/17 14:30 16 11/09/17 14:24 80 16 89/49 (62) 11/09/17 14:00 76 16 87/46 (60) 99 Nasal Cannula 2.00 11/09/17 13:06 80 16 92/51 (65) 99 Nasal Cannula 2.00 11/09/17 13:00 80 16 92/51 (65) 99 Nasal Cannula 2.00 11/09/17 12:40 83 16 80/43 (55) 99 Room Air 11/09/17 12:38 98.0 82 16 81/47 (58) 99 Room Air 11/09/17 12:35 16 11/09/17 12:35 16 99 Nasal Cannula 2.00 11/09/17 12:35 99 Nasal Cannula 2.00 11/09/17 12:06 98.6 91 16 86/46 (59) 100 Physical Exam GENERAL: This is a chronically ill, cachetic patient, in no apparent distress. SKIN: No rashes, ecchymoses or lesions. Cool and dry. HEAD: Atraumatic. Normocephalic. No temporal or scalp tenderness. EYES: Pupils equal round and reactive. Extraocular motions intact. No scleral icterus. No injection or drainage. ENT: Nose without bleeding, purulent drainage or septal hematoma. Throat without erythema, tonsillar hypertrophy or exudate. Uvula midline. Airway patent. NECK: Trachea midline. No JVD or lymphadenopathy. Supple, nontender, no meningeal signs. CARDIOVASCULAR: Regular rate and rhythm without murmurs, gallops, or rubs. RESPIRATORY: Breathsounds with coarse rhonchi no wheeze . bilateral crackles in bases GASTROINTESTINAL: Abdomen soft, tender, distended. open packed. no necrosis MUSCULOSKELETAL: Extremities without clubbing, cyanosis, or edema. No joint tenderness, effusion, or edema noted. No calf tenderness. Negative Homans sign bilaterally. NEUROLOGICAL: Awake and alert. Cranial nerves II through XII intact. Motor and sensory grossly within normal limits. Five out of 4 muscle strength in all muscle groups. Normal speech. Laboratory Laboratory Tests Test 11/09/17 12:30 11/09/17 14:00 11/09/17 19:05 White Blood Count 19.6 Red Blood Count 3.39 Hemoglobin 9.4 Hematocrit 28.8 Mean Corpuscular Volume 84.8 Mean Corpuscular Hemoglobin 27.8 Mean Corpuscular Hemoglobin Concent 32.8 Red Cell Distribution Width 15.1 Platelet Count 368 Mean Platelet Volume 7.3 CBC Comment AUTO DIFF Differential Total Cells Counted 100 Neutrophils % (Manual) 77 Band Neutrophils % 7 Lymphocytes % 7 Monocytes % 5 Eosinophils % 3 Neutrophils # (Manual) 16.7 Metamyelocytes 1 Differential Comment FINAL DIFF MANUAL Platelet Estimate NORMAL Platelet Morphology Comment NORMAL Blood Urea Nitrogen 15 Creatinine 1.10 Random Glucose 75 Total Protein 5.7 Albumin 2.2 Calcium Level 7.9 Alkaline Phosphatase 255 Aspartate Amino Transf (AST/SGOT) 12 Alanine Aminotransferase (ALT/SGPT) 19 Total Bilirubin 1.6 Sodium Level 143 Potassium Level 2.6 Chloride Level 112 Carbon Dioxide Level 20.4 Anion Gap 11 Estimat Glomerular Filtration Rate 70 Lactic Acid Level 1.4 Urine Collection Type CATH Urine Color YELLOW Urine Turbidity CLEAR Urine pH 6.0 Urine Specific [place] 1.010 Urine Protein NEG Urine Glucose (UA) NEG Urine Ketones NEG Urine Occult Blood TRACE Urine Nitrite NEG Urine Bilirubin NEG Urine Urobilinogen 0.2 Urine Leukocyte Esterase NEG Urine RBC 0-3 Urine WBC 0-2 Urine Hyaline Casts 6-9 Microscopic Urinalysis Comment CATH-CULT NOT IND Urine Collection Time 14:00 Date/Time Source Procedure Growth Status 11/09/17 12:35 Blood Peripheral Aerobic Blood Culture Pending Received 11/09/17 12:35 Blood Peripheral Anaerobic Blood Culture Pending Received Result Diagram: 11/09/17 1230 11/09/17 1230 Assessment and Plan Problem List: (1) Sepsis ICD Codes: A41.9 - Sepsis, unspecified organism Plan: ADD DOXYCYCLINE ON ZOSYN WITH VANCOMYCIN ADD FLAGYL CHECK STOOL FOR CDIFF COLITIS CHECK WOUND CULTURE CHECK SPUTUM C/S CHECK CT ABDOMEN/ PELVIS FURTHER ORDERS TO FOLLOW ADD DUO NEBS (2) Crohns disease ICD Codes: K50.90 - Crohn's disease, unspecified, without complications Status: Acute (3) Abdominal pain ICD Codes: R10.9 - Unspecified abdominal pain Status: Resolved (4) Wound dehiscence ICD Codes: T81.30XA - Disruption of wound, unspecified, initial encounter; Z90.49 - Acquired absence of other specified parts of digestive tract Status: Acute Problem Qualifiers (1) Crohns disease: Qualified Codes: K50.818 - Crohn's disease of both small and large intestine with other complication (2) Sepsis: Qualified Codes: A41.9 - Sepsis, unspecified organism Socorro Johnson November 09, 2017 20:50
[2017-11-09] MEDS: SODIUM CHLORIDE 0.9% FLUSH 10 ML FLUSH IV FLUSH SCH (21:00)
[2017-11-09] MEDS: PIPERACIL-TAZO 4.5 GM PREMIX 100 ML IV SCH (21:43)
[2017-11-09] MEDS: FAMOTIDINE 20 MG TAB PO SCH (21:44)
[2017-11-09] MEDS: POTASSIUM CHLOR 20 MEQ PREMIX 100 ML IV PRN (22:23)
[2017-11-10] VITALS (68 sets, daily range): BP systolic 74–116; BP diastolic 48–70; PULSE 50–84; RESP 11–30; TEMP 97.4–98.1; O2SAT 94–100
[2017-11-10] MEDS: ACETAMINOPHEN/HYDROcodone 325 MG/7.5 MG TAB PO PRN (00:04)
[2017-11-10] MEDS: DEXTROSE 5%-LACTATED RING INJ 1,000 ML IV SCH ×4 (00:05→20:48)
[2017-11-10] MEDS: HYDROCORTISONE SOD SUCCINATE 100 MG VIAL IV PUSH SCH ×4 (00:05→16:51)
[2017-11-10] MEDS: ALBUMIN 5% INJ 250 ML IV SCH ×2 (00:05→04:38)
[2017-11-10] MEDS: DOXYCYCLINE 100 MG/NS 100 ML IV SCH ×4 (00:05→11:45)
[2017-11-10] MEDS: POTASSIUM CHLOR 20 MEQ PREMIX 100 ML IV PRN ×3 (00:43→04:18)
[2017-11-10] MEDS: metroNIDAZOLE 500 MG INJ 100 ML IV SCH ×3 (01:02→16:51)
[2017-11-10] MEDS: PIPERACIL-TAZO 4.5 GM PREMIX 100 ML IV SCH ×4 (01:27→20:47)
[2017-11-10] MEDS: NOREPINEPHRINE 4 MG/D5W 250 ML IV PRN ×2 (03:11→11:42)
[2017-11-10] MEDS: CHLORHEXIDINE GLUCONATE 2 % 1 PACK (2 CLOTHS) TOP SCH (04:00)
--- NOTE | 2017-11-10 06:58 | RADRPT ---
EXAM DATE/TIME: 11/10/2017 05:31 [facility] COMPARISON: CHEST SINGLE AP, November 09, 2017, 12:43. INDICATIONS : Shortness of breath MEDICAL HISTORY : Cardiovascular disease. Hypertension. Chronic obstructive pulmonary disease. Crohns, gastritis, ascit es. SURGICAL HISTORY : Colon resection ENCOUNTER: Subsequent ACUITY: 2 days PAIN SCORE: 0/10 LOCATION: Bilateral chest FINDINGS: There is worsening diffuse bilateral infiltrate. Likely minimal effusion. Cardiac contours are grossl y satisfactory. CONCLUSION: Worsening bilateral infiltrates Oc Fletcher MD on November 10, 2017 at 6:55 Board Certified Radiologist. This report was verified electronically.
[2017-11-10] MEDS ORDERED: DIATRIZOATE MEGLUM/DIATRIZOATE SOD 9 ML CUP PO ONE (07:00)
[2017-11-10 07:09] LABS: AUTOMATED NEUTROPHIL # 37.8 TH/MM3 (1.8-7.7); BASOPHIL # 1.4 TH/MM3 (0-0.2); BASOPHIL % 3.3 % (0.0-2.0); EOSINOPHIL % 0.1 % (0.0-4.0); HEMATOCRIT 25.9 % (39.0-51.0); LYMPHOCYTE # 1.3 TH/MM3 (1.0-4.8); MEAN CELL VOLUME 85.6 FL (80.0-100.0); MEAN CORPUSCULAR HEMOGLOBIN 29.6 PG (27.0-34.0); MEAN CORPUSCULAR HGB CONC 34.6 % (32.0-36.0); MONO % 4.2 % (0.0-8.0); MONOCYTE # 1.8 TH/MM3 (0-0.9); NEUT % 89.4 % (16.0-70.0); PLATELET COUNT 390 TH/MM3 (150-450); RED BLOOD COUNT 3.02 MIL/MM3 (4.50-5.90); RED CELL DISTRIBUTION WIDTH 14.9 % (11.6-17.2); WHITE BLOOD COUNT 42.3 TH/MM3 (4.0-11.0)
[2017-11-10 07:25] LABS: INTERNATIONAL NORMALIZED RATIO 1.9 RATIO; PROTHROMBIN TIME - PATIENT 19.4 SEC (9.8-11.6)
--- NOTE | 2017-11-10 07:25 | HHI.CCPN ---
Subjective Remarks/Hospital Course 11/09: 52-year-old male with a medical history significant for Crohn's disease who underwent E lap with terminal ileum/ascending colon resection by Dr. Lane on 10/19/17. Patient was subsequently discharged on 10/31. He presented back to the ER on 11/04 with abdominal pain underwent labs and CAT scan and was subsequently discharged from the ER and followed up with Dr. Lane. He did develop some wound dehiscence and the upper part of his incision site and some ha were removed by Dr. Lane. Patient presented back to the ER on 11/09 as he was not feeling well with generalized weakness and abdominal pain and was noted to be hypotensive in the ER with a leukocytosis. He received 2 L normal saline bolus and was given empiric Zosyn for antibiotic coverage. Dr. Pryor spoke with Dr. Lane. Patient was accepted for admission by critical care medicine service and is being admitted to the ICU. When I evaluated the patient he was laying in the ER stretcher with systolic blood pressure in the 90s having received 2 L normal saline bolus. He was complaining of pain all over at the time. He denied any shortness of breath nausea or vomiting currently. He denied any melena or rectal bleeding. Denies any fever or chills. He did have slight dehiscence of his upper abdominal incision site with foul smell but minimal discharge. History was obtained by reviewing records and discussion with the ER physician. Patient is not a very good historian. He also reportedly has a history of cirrhosis and has had a TIPS procedure in June 2017. He has been on diuretics at home. 11/10: Remains hypotensive last night despite fluid boluses hence was started on Levophed for pressor support. Complains of abdominal pain this morning. Denies any shortness of breath. Evaluated by ID and awaiting CT abdomen pelvis this morning. On Levophed 9 mics per minute. Objective Vital Signs Date Time Temp Pulse Resp B/P (MAP) Pulse Ox O2 Delivery O2 Flow Rate FiO2 11/10/17 06:00 74 11/10/17 06:00 18 99/58 (72) 99 11/10/17 04:00 97.4 11/09/17 19:19 Nasal Cannula 1.00 Intake and Output 11/10/17 11/10/17 11/11/17 08:00 16:00 00:00 Intake Total 2493.5 ml Output Total 700 ml Balance 1793.5 ml Result Diagram: 11/09/17 1230 11/09/17 2100 Imaging Last Impressions Chest X-Ray 11/09/17 1225 Signed Impressions: Service Date/Time: November 12:43 - CONCLUSION: 1. Patchy, diffuse parenchymal infiltrates unchanged from previous. Jus Rodrigez MD Objective Remarks Narrative GENERAL: Middle-aged male laying in bed, appears emaciated, not in any acute distress SKIN: Focused skin assessment warm/dry. HEAD: Atraumatic. Normocephalic. EYES: Pupils equal and round. No scleral icterus. No injection or drainage. ENT: No nasal bleeding or discharge. Mucous membranes pink and moist. NECK: Trachea midline. No JVD. CARDIOVASCULAR: Regular rate and rhythm. No murmur appreciated. RESPIRATORY: No accessory muscle use. Clear to auscultation. Breath sounds equal bilaterally. GASTROINTESTINAL: Abdomen soft, non-tender, nondistended. Hepatic and splenic margins not palpable. Midline surgical incision with wound dehiscence of 2 inch long on the superior aspect of the wound. There is serosanguineous drainage which is soaking the wound dressing. Some foul odor noted. MUSCULOSKELETAL: No obvious deformities. No clubbing. No cyanosis. No edema. NEUROLOGICAL: Awake and alert. No obvious cranial nerve deficits. Motor grossly within normal limits. Normal speech. PSYCHIATRIC: Appropriate mood and affect; insight and judgment normal. A/P Assessment and Plan 52-year-old male with: Abdominal pain Hypotension Dehydration Septic shock Crohn's disease status post recent terminal ileum/ascending colon resection 10/19 Wound dehiscence History of cirrhosis status post previous TIPS Plan: Neuro: Percocet as needed for pain. Follow neuro status. Cardiovascular: Aggressive fluid resuscitation. On Levophed for pressor support to maintain map greater than 65mm Hg. Hold diuretics. Pulmonary: Supplemental O2 as needed, bronchodilators as needed. GI/liver: P.o. diet as tolerated. Colorectal surgery Dr. Lane to be consulted for further evaluation of abdominal wound dehiscence following terminal ileum/ascending colon resection. Renal/: IV hydration, strict intake output, monitor and replete electrodes, follow BN creatinine. ID: Follow-up cultures. ID consult requested. Continue Zosyn for empiric antibiotic coverage. Received IV vancomycin 1 dose on 11/09. Will continue vancomycin IV while awaiting cultures and CT abdomen pelvis results. ID added doxycycline and IV Flagyl on 11/09. Heme: Follow CBC and coags. Endocrine: Patient has been on and off steroids for Crohn's disease. Continue stress dose hydrocortisone 50 mg IV every 6 hourly in view of hypotension. Prophylaxis: Pepcid 20 mg p.o. twice daily for GI prophylaxis. Lovenox for DVT prophylaxis. Access: Peripheral IVs. Will place central line as patient requiring pressors. Condition critical Time spent on critical care excluding procedures 40 minutes Paxton Hopper MD November 10, 2017 07:25
[2017-11-10] MEDS ORDERED: MIDAZOLAM HCL 5 MG/ML VIAL (1 ML) ONE (07:43)
[2017-11-10] MEDS ORDERED: LIDOCAINE HCL 2% 100 MG/5 ML SYRINGE ONE ×2 (07:53→08:06)
[2017-11-10 07:55] LABS: BANDS 10 % (0-6); LYMPHOCYTES 5 % (9-44); METAMYELOCYTES 2 % (0-1); MONOCYTES 3 % (0-8); NEUTROPHIL # MANUAL DIFF 38.9 TH/MM3 (1.8-7.7); POLYS (SEG NEUTROPHILS) 80 % (16-70)
[2017-11-10 08:22] LABS: ALBUMIN 2.3 GM/DL (3.4-5.0); BICARBONATE 16.4 MEQ/L (21.0-32.0); CALCIUM 7.3 MG/DL (8.5-10.1); CALCIUM-PROTEIN CORRECTED 8.2 MG/DL (8.5-10.1); TOTAL BILIRUBIN ADULT 1.5 MG/DL (0.2-1.0); TOTAL PROTEIN 5.4 GM/DL (6.4-8.2)
--- NOTE | 2017-11-10 08:32 | PD.PROCEDR ---
Central Line Procedure REASON FOR PROCEDURE Central venous access PROCEDURE PERFORMED Central line placement: Right internal jugular vein with ultrasound guidance CONSENT Informed consent for procedure was obtained from patient and documented on chart. ANESTHESIA Local injection of 1% Lidocaine DESCRIPTION OF THE PROCEDURE The patient was placed in supine, mild Trendelenburg position. The area was exposed and cleansed with ChloraPrep, times two. Large sterile drape was used to cover the patient, with the site exposed, under sterile conditions including cap, face mask, sterile gown, and sterile gloves. On single attempt, the introducer needle was inserted with negative pressure in syringe and venous flash was obtained. The guide wire was then advanced without any restriction and the needle was removed. The dilator was used without any complications. Using Seldinger technique a 20 cm antimicrobial coated triple-lumen catheter was advanced over the guide wire to a depth of 19 centimeters. The guide wire was removed. All ports were aspirated with dark venous blood return and flushed easily with sterile saline. All ports were capped. Antibiotic disc was placed around central line at puncture site. The central line was secured to the skin with a StatLock. The area was bandaged with sterile see-through central line bandage. Awaiting postprocedure chest x-ray. RADIOLOGICAL DATA Ultrasound guidance was used to locate the right internal jugular vein. COMPLICATIONS: Failed attempt at right subclavian vein cannulation prior to attempting right internal jugular vein. ESTIMATED BLOOD LOSS: Less than 1 cc. Paxton Hopper MD November 10, 2017 08:32
[2017-11-10] MEDS ORDERED: VANCOMYCIN INJ 850 MG in SODIUM CHLOR 0.9% 250 ML INJ 250 ML IV SCH (08:45)
[2017-11-10] MEDS ORDERED: Vancomycin Consult Pharmacy 1 EA OTHER SCH (08:45)
--- NOTE | 2017-11-10 09:08 | RADRPT ---
EXAM DATE/TIME: 11/10/2017 08:25 [facility] COMPARISON: CHEST SINGLE AP, November 10, 2017, 5:31. INDICATIONS : Right central line placement. MEDICAL HISTORY : Cardiovascular disease. Hypertension. Chronic obstructive pulmonary SURGICAL HISTORY : Colon resection. ENCOUNTER: Subsequent ACUITY: 3 days PAIN SCORE: Non-responsive. LOCATION: Right upper chest FINDINGS: Portable AP views of the chest demonstrate a normal-sized cardiac silhouette. Right IJ central line h as been placed and distal tip is in the superior vena cava. A small right pneumothorax is present and new from the prior examination. There is a relatively diffuse bilateral airspace consolidation most severe in the left lung apex. A TIPS overlies the right upper quadrant. CONCLUSION: 1. Right IJ central line distal tip is in the SVC. There is a new small right pneumothorax. 2. Stable bilateral airspace consolidation, most severe in the left lung apex. Oc Stafford MD on November 10, 2017 at 9:04 Board Certified Radiologist. This report was verified electronically.
[2017-11-10] MEDS: MORPHINE SULFATE 4 MG/ML INJ IV PUSH PRN ×3 (09:11→23:59)
[2017-11-10] MEDS: FAMOTIDINE 20 MG TAB PO SCH ×2 (09:13→20:48)
[2017-11-10] MEDS: VANCOMYCIN INJ 1,000 MG in SODIUM CHLOR 0.9% 250 ML INJ 250 ML IV SCH (09:13)
[2017-11-10] MEDS: SODIUM CHLORIDE 0.9% FLUSH 10 ML FLUSH IV FLUSH SCH ×2 (09:14→20:48)
--- NOTE | 2017-11-10 09:29 | OTSOAPIP ---
TIME SESSION COMPLETED: 830 TREATMENT TIME: 0 MINS. CHART REVIEWED. PATIENT 52 YEAR OLD MALE ADMITTED WITH SEPTIC SHOCK, S/P TERMINAL ILEAL-PROXIMAL COLON RESECTION 10/19/17; * NASAL SCREEN (+) METHICILLIN RESISTANT STAPHYLOCOCCUS AUREUS; * CHEST X RAY: WORSENING BILATERAL DIFFUSE INFILTRATES; INTERDISCIPLINARY COMMUNICATION: CONSULTED WITH DR KAVEH ALCANTARA AND NURSING WHO REPORTED PATIENT IS NOT MEDICALLY STABLE AND OCCUPATIONAL THERAPY ORDER TO BE CANCELLED. PLAN: OCCUPATIONAL THERAPY SIGNING OF PER DR KAVEH ALCANTARA REQUEST. Therapist: LI SEXTON OTR/L Signature on file
--- NOTE | 2017-11-10 09:58 | HHI.IDPN ---
Subjective Subjective Remarks Abdominal pain present. On Levophed at 6.5 Breathing ok To go for a CT abdomen today No fever Antibiotics Vancomycin, Zosyn, Flagyl, Doxy Lines Right IJ line, peripheral IV lines Past Medical History Crohn's disease, Cirrhosis, Gastritis Allergies: Coded Allergies: tetanus toxoid, adsorbed (Verified Allergy, Severe, Nausea/Vomiting, ) Objective . Vital Signs Date Time Temp Pulse Resp B/P (MAP) Pulse Ox O2 Delivery O2 Flow Rate FiO2 11/10/17 08:12 99 2.00 99 11/10/17 06:00 74 11/10/17 06:00 74 18 99/58 (72) 99 11/10/17 06:00 73 99/58 11/10/17 05:00 78 18 112/58 (76) 98 11/10/17 04:00 78 11/10/17 04:00 97.4 78 19 107/53 (71) 98 11/10/17 03:11 50 97/48 11/10/17 03:00 50 20 97/48 (64) 100 11/10/17 02:00 54 11/10/17 02:00 54 18 115/58 (77) 99 11/10/17 01:00 74 23 101/56 (71) 99 11/10/17 00:00 80 11/10/17 00:00 97.9 80 25 99/60 (73) 99 11/09/17 23:00 84 22 101/56 (71) 98 11/09/17 22:00 86 20 111/65 (80) 94 11/09/17 22:00 86 11/09/17 21:00 94 23 93/52 (66) 99 11/09/17 20:53 92 86/46 11/09/17 20:23 97.4 92 22 82/48 (59) 98 11/09/17 20:00 94 11/09/17 19:19 98 Nasal Cannula 1.00 11/09/17 19:04 88 21 93/49 (64) 100 11/09/17 18:54 88 20 80/57 (65) 100 11/09/17 18:45 92 18 92/54 (67) 96 11/09/17 18:40 90 19 93/57 (69) 98 11/09/17 18:35 92 20 100/77 (85) 99 18 18:35 92 18 18:30 94 5/18 18:30 94 21 96/48 (64) 100 18 18:25 92 23 95/53 (67) 100 18 18:25 92 18 18:20 90 18 18:20 90 17 90/50 (63) 99 18 18:15 90 18 18:15 90 17 91/51 (64) 100 18 18:10 90 18 87/51 (63) 99 18 18:10 90 11/09/17 18:05 90 11/09/17 18:05 90 18 86/47 (60) 99 11/09/17 18:03 88 11/09/17 18:03 88 18 89/47 (61) 99 11/09/17 18:00 88 11/09/17 18:00 88 21 92/49 (63) 98 11/09/17 17:57 88 20 85/51 (62) 11/09/17 17:57 88 11/09/17 17:55 90 11/09/17 17:55 90 23 82/46 (58) 11/09/17 17:54 88 18 81/28 (45) 90 11/09/17 17:54 88 11/09/17 17:50 90 14 78/39 (52) 100 11/09/17 17:50 90 11/09/17 17:45 90 11/09/17 17:45 90 20 82/42 (55) 99 11/09/17 17:40 90 17 76/45 (55) 18 17:40 90 18 17:35 88 18 17:35 88 21 85/44 (58) 18 17:30 86 18 75/51 (59) 99 18 17:30 86 18 17:27 84 18 83/46 (58) 98 11/09/18 17:27 84 //18 17:13 86 5/18 17:13 86 20 95/48 (64) 91 11/09/17 17:00 97.7 18 16:30 81 16 94/51 (65) 99 11/09/17 16:15 16 11/09/17 16:15 87 16 90/48 (62) 100 Nasal Cannula 2.00 11/09/17 16:00 81 16 94/52 (66) 100 Nasal Cannula 2.00 11/09/17 15:30 83 16 97/49 (65) 100 Nasal Cannula 11/09/17 15:05 84 16 87/55 (66) 11/09/17 14:57 83 16 88/48 (61) 100 Nasal Cannula 2.00 11/09/17 14:51 98 Nasal Cannula 2.00 11/09/17 14:30 16 11/09/17 14:24 80 16 89/49 (62) 11/09/17 14:00 76 16 87/46 (60) 99 Nasal Cannula 2.00 11/09/17 13:06 80 16 92/51 (65) 99 Nasal Cannula 2.00 11/09/17 13:00 80 16 92/51 (65) 99 Nasal Cannula 2.00 11/09/17 12:40 83 16 80/43 (55) 99 Room Air 11/09/17 12:38 98.0 82 16 81/47 (58) 99 Room Air 11/09/17 12:35 16 11/09/17 12:35 16 99 Nasal Cannula 2.00 11/09/17 12:35 99 Nasal Cannula 2.00 11/09/17 12:06 98.6 91 16 86/46 (59) 100 . Laboratory Tests Test 11/09/17 12:30 11/10/17 07:00 White Blood Count 19.6 TH/MM3 42.3 TH/MM3 Red Blood Count 3.39 MIL/MM3 3.02 MIL/MM3 Hemoglobin 9.4 GM/DL 9.0 GM/DL Hematocrit 28.8 % 25.9 % Mean Corpuscular Volume 84.8 FL 85.6 FL Mean Corpuscular Hemoglobin 27.8 PG 29.6 PG Mean Corpuscular Hemoglobin Concent 32.8 % 34.6 % Red Cell Distribution Width 15.1 % 14.9 % Platelet Count 368 TH/MM3 390 TH/MM3 Mean Platelet Volume 7.3 FL 8.0 FL CBC Comment AUTO DIFF AUTO DIFF Differential Total Cells Counted 100 100 Neutrophils % (Manual) 77 % 80 % Band Neutrophils % 7 % 10 % Lymphocytes % 7 % 5 % Monocytes % 5 % 3 % Eosinophils % 3 % Neutrophils # (Manual) 16.7 TH/MM3 38.9 TH/MM3 Metamyelocytes 1 % 2 % Differential Comment FINAL DIFF MANUAL FINAL DIFF MANUAL Platelet Estimate NORMAL NORMAL Platelet Morphology Comment NORMAL NORMAL Neutrophils (%) (Auto) 89.4 % Lymphocytes (%) (Auto) 3.0 % Monocytes (%) (Auto) 4.2 % Eosinophils (%) (Auto) 0.1 % Basophils (%) (Auto) 3.3 % Neutrophils # (Auto) 37.8 TH/MM3 Lymphocytes # (Auto) 1.3 TH/MM3 Monocytes # (Auto) 1.8 TH/MM3 Eosinophils # (Auto) 0.0 TH/MM3 Basophils # (Auto) 1.4 TH/MM3 Laboratory Tests Test 11/09/17 12:30 11/09/17 21:00 11/10/17 07:00 Blood Urea Nitrogen 15 MG/DL 12 MG/DL Creatinine 1.10 MG/DL 1.00 MG/DL Random Glucose 75 MG/DL 207 MG/DL Total Protein 5.7 GM/DL 5.4 GM/DL Albumin 2.2 GM/DL 2.3 GM/DL Calcium Level 7.9 MG/DL 7.3 MG/DL Alkaline Phosphatase 255 U/L 182 U/L Aspartate Amino Transf (AST/SGOT) 12 U/L 12 U/L Alanine Aminotransferase (ALT/SGPT) 19 U/L 14 U/L Total Bilirubin 1.6 MG/DL 1.5 MG/DL Sodium Level 143 MEQ/L 143 MEQ/L Potassium Level 2.6 MEQ/L 2.6 MEQ/L 3.5 MEQ/L Chloride Level 112 MEQ/L 117 MEQ/L Carbon Dioxide Level 20.4 MEQ/L 16.4 MEQ/L Anion Gap 11 MEQ/L 10 MEQ/L Estimat Glomerular Filtration Rate 70 ML/MIN 78 ML/MIN Lactic Acid Level 1.4 mmol/L Protein Corrected Calcium 8.2 MG/DL Microbiology Date/Time Source Procedure Growth Status 11/09/17 12:35 Blood Peripheral Aerobic Blood Culture Pending Received 11/09/17 12:35 Blood Peripheral Anaerobic Blood Culture Pending Received 11/09/17 12:30 Blood Peripheral Aerobic Blood Culture Pending Received 11/09/17 12:30 Blood Peripheral Anaerobic Blood Culture Pending Received 11/10/17 02:30 Wound Abdomen Gram Stain Pending Received 11/10/17 02:30 Wound Abdomen Wound Culture Pending Received Physical Exam GENERAL: This is a chronically ill, cachetic patient,depressed crying SKIN: Wound on abdomen HEAD: Atraumatic. Normocephalic. No temporal or scalp tenderness. EYES: Pupils equal round and reactive. Extraocular motions intact. No scleral icterus. No injection or drainage. ENT: Nose without bleeding, purulent drainage or septal hematoma. Throat without erythema, tonsillar hypertrophy or exudate. Uvula midline. Airway patent. Tongue with severe glossitis NECK: Trachea midline. No JVD or lymphadenopathy. Supple, nontender, no meningeal signs. CARDIOVASCULAR: Regular rate and rhythm without murmurs, gallops, or rubs. RESPIRATORY: Breath sounds ajit decreased GASTROINTESTINAL: Abdomen soft, tender, distended. open packed. no necrosis Bowel sounds heard MUSCULOSKELETAL: Extremities without clubbing, cyanosis, or edema. No joint tenderness, effusion, or edema noted. No calf tenderness. Negative Homans sign bilaterally. Wasting generalized NEUROLOGICAL: Awake and alert. Cranial nerves II through XII intact. Motor and sensory grossly within normal limits. Five out of 4 muscle strength in all muscle groups. Normal speech. Assessment & Plan Diagnosis: (1) Sepsis ICD Codes: A41.9 - Sepsis, unspecified organism Plan: WBC worse. Check CT abdomen/ pelvis Follow cultures Continue IV Vancomycin, Zosyn, Flagyl and Doxy Add Nystatin swish and swallow (2) Hypotension ICD Codes: I95.9 - Hypotension, unspecified Status: Acute Plan: On pressors (3) Wound dehiscence ICD Codes: T81.30XA - Disruption of wound, unspecified, initial encounter; Z90.49 - Acquired absence of other specified parts of digestive tract Status: Acute (4) Crohns disease ICD Codes: K50.90 - Crohn's disease, unspecified, without complications Status: Acute (5) Septic shock ICD Codes: A41.9 - Sepsis, unspecified organism; R65.21 - Severe sepsis with septic shock Status: Acute Problem Qualifiers (1) Sepsis: Qualified Codes: A41.9 - Sepsis, unspecified organism (2) Hypotension: Qualified Codes: I95.9 - Hypotension, unspecified (3) Crohns disease: Qualified Codes: K50.818 - Crohn's disease of both small and large intestine with other complication Christa Amin MD November 10, 2017 09:58
[2017-11-10] MEDS: NYSTATIN SUSP 500,000 U/5 ML CUP SWISH-SWAL SCH ×3 (11:45→20:47)
--- NOTE | 2017-11-10 11:59 | RADRPT ---
EXAM DATE/TIME: 11/10/2017 11:22 [facility] COMPARISON: CT ABDOMEN & PELVIS W/O CONTRAST, September 24, 2017, 11:46. TECHNIQUE: Volumetric scanning of the abdomen and pelvis was performed. Using automated exposure control and ad justment of the mA and/or kV according to patient size, radiation dose was kept as low as reasonably achievable to obtain optimal diagnostic quality images. DICOM format image data is available electro nically for review and comparison. FINDINGS: Small right pneumothorax with minimal parenchymal changes right base. Small bilateral pleural effusi ons. TIPS stent evident. Trace ascites. Prominent gallbladder with single gallstone Mildly prominent spleen Pancreas and adrenals unremarkable Right and left kidneys appear normal Moderate mesenteric edema. Surgical clips right lower quadrant There is edema in the distal small bowel and ascending colon that has progressed in the interval. Th is could be related to both Crohn's disease and mesenteric edema from portal hypertension. Stool is seen scattered throughout the descending colon and sigmoid. Bladder is decompressed by Vega. Right inguinal hernia extending into scrotum containing fluid. CONCLUSION: Increasing edema in the cecum and terminal ileum of uncertain etiology. Increasing stool in the sigmoid colon Enlarging right inguinal hernia Slight increase in amount of ascites. Hernando Rodrigez MD FACR on November 10, 2017 at 11:53 Board Certified Radiologist. This report was verified electronically.
--- NOTE | 2017-11-10 15:32 | RADRPT ---
EXAM DATE/TIME: 11/10/2017 13:55 [facility] COMPARISON: CHEST SINGLE AP, November 10, 2017, 8:25. INDICATIONS : Pneumothorax. MEDICAL HISTORY : Cardiovascular disease. Hypertension. Chronic obstructive pulmonary SURGICAL HISTORY : Colon resection. ENCOUNTER: Subsequent ACUITY: 3 days PAIN SCORE: 0/10 LOCATION: Bilateral chest FINDINGS: Central line in good position. Pneumothorax has increased in size and now measures 2.9 cm. Increasing patchy airspace disease in both lungs. CONCLUSION: Increasing right pneumothorax.. Hernando Rodrigez MD FACR on November 10, 2017 at 15:28 Board Certified Radiologist. This report was verified electronically.
[2017-11-10] MEDS: ENOXAPARIN SODIUM 40 MG/0.4 ML SYRINGE SQ SCH (16:51)
[2017-11-10 17:42] LABS: BICARBONATE 16.7 MEQ/L (21.0-32.0); CALCIUM 7.3 MG/DL (8.5-10.1); CREATININE 0.97 MG/DL (0.60-1.30)
--- NOTE | 2017-11-10 17:44 | HHI.PR ---
Subjective Remarks C/R Surg Pt s/p resection crohn's stricure TI, known severe cirrhois Doing well until yesterday, when he developed Abd pain, weakness - no fever/ vomiting Pt seen in ER - found to be hypotensive, lethargic - adm for IVF, ab's Objective - Vital Signs Date Time Temp Pulse Resp B/P (MAP) Pulse Ox O2 Delivery O2 Flow Rate FiO2 11/10/17 16:01 74 15 116/67 (83) 11/10/17 15:31 100 11/10/17 12:00 98.1 11/10/17 08:12 2.00 99 11/09/17 19:19 Nasal Cannula Result Diagram: 11/10/17 0700 11/10/17 1515 Objective Remarks PE alert Abd - soft, open mid portion, clean, min tympany A/P Discharge Planning Imp: agree with tx to main [facility] reviewed CT - non-sp inflam noted open wound care with wet to dry dressings try hard not re-operate unless condition changes Ashwin Lane MD November 10, 2017 17:44
[2017-11-10] MEDS ORDERED: LIDOCAINE 1%/EPINEPHrine 1:100,000 SOLN 20 ML VIAL INFIL ONE (18:45)
[2017-11-10] MEDS ORDERED: MORPHINE SULFATE 4 MG/ML INJ IV PUSH ONE (18:45)
[2017-11-10] MEDS ORDERED: MIDAZOLAM HCL 2 MG/2 ML VIAL IV PUSH ONE ×2 (18:45→19:45)
[2017-11-10 18:46] LABS: CALCIUM-PROTEIN CORRECTED 8.3 MG/DL (8.5-10.1); TOTAL PROTEIN 5.2 GM/DL (6.4-8.2)
--- NOTE | 2017-11-10 19:22 | PD.PROCEDR ---
Procedure Note Procedure Date of procedure: 11/10/2017 Procedure: Right #10 [place] pigtail chest tube placement Indication: Iatrogenic right pneumothorax Details of procedure: Informed consent was obtained from the patient's mother. The patient was laid supine. The lateral chest wall was cleaned with ChloraPrep 3 time. Regional sterile drapes were applied. 1% lidocaine with 1 200,000 epinephrine was used for local anesthesia and injected into the subcutaneous and deep muscle tissues. An insertion needle was placed in the midclavicular space at the second rib with a soto of air. Guidewire was placed to approximately 35 cm. Insertion needle was removed. A 0.5 cm skin incision was made with a scalpel blade. A size 10 [place] chest tube was inserted into the pleural cavity and directed toward the apex to a depth demarcated by the hub on the pigtail catheter. A stay fix device was used secure the chest tube.The chest tube was connected to a Pleur-evac drainage system at -40 cm H2O. There was a persistent 1 chamber air leak. There was possibly 30 cc of serosanguineous output from the chest tube. Estimated blood loss: 1 cc Complications: None. Stat chest x-ray pending at time of dictation. Zuhair Emanuel MD November 10, 2017 19:22
[2017-11-10] MEDS ORDERED: MORPHINE SULFATE 2 MG/ML SYRINGE IV PUSH ONE (19:45)
--- NOTE | 2017-11-10 19:47 | RADRPT ---
EXAM DATE/TIME: 11/10/2017 19:20 [facility] COMPARISON: CHEST SINGLE AP, November 10, 2017, 13:55. INDICATIONS : Right sided chest tube placement MEDICAL HISTORY : Cardiovascular disease. Hypertension. Chronic obstructive pulmonary SURGICAL HISTORY : Colon resection ENCOUNTER: Initial ACUITY: 1 day PAIN SCORE: Non-responsive. LOCATION: Right chest FINDINGS: A single view of the chest demonstrates small caliber right chest tube placement were were without vi sible pneumothorax. There is some right upper lobe atelectasis and probable fluid in the upper right chest. Or airspace consolidation is present. Right central line in superior vena cava. CONCLUSION: 1. Small caliber right chest tube with resolution of right pneumothorax. There is some right upper lo be atelectasis and probable loculated fluid superiorly. Dung Ellsworth MD on November 10, 2017 at 19:42 Board Certified Radiologist. This report was verified electronically.
--- NOTE | 2017-11-10 19:54 | EKG ---
Date Performed: 11/09/2017 Time Performed: 14:23:56 PTAGE: 52 years EKG: Sinus rhythm NONSPECIFIC T-WAVE ABNORMALITY BORDERLINE ECG INTERPRETATION BASED ON A DEFAULT AGE OF 40 YEARS Sinc e the PREVIOUS TRACING , no significant change noted PREVIOUS TRACIN10/22/2017 11.57 DOCTOR: Amalia Horn Interpretating Date/Time 11/10/2017 16:45:43
--- NOTE | 2017-11-10 20:34 | RADRPT ---
EXAM DATE/TIME: 11/10/2017 20:15 [facility] COMPARISON: No previous studies available for comparison. INDICATIONS : Shortness of breath. RADIATION DOSE: 7.31 CTDIvol (mGy) MEDICAL HISTORY : Cardiovascular disease. Crohns disease. Pancreatitis. SURGICAL HISTORY : None. ENCOUNTER: Initial ACUITY: 1 day PAIN SCALE: 5/10 LOCATION: Bilateral chest TECHNIQUE: Volumetric scanning of the chest was performed. Using automated exposure control and adjustment of t he mA and/or kV according to patient size, radiation dose was kept as low as reasonably achievable to obtain optimal diagnostic quality images. DICOM format image data is available electronically for r eview and comparison. Follow-up recommendations for detected pulmonary nodules are based at a minimum on nodule size and pa tient risk factors according to Fleischner Society Guidelines. FINDINGS: A small caliber right chest tube has been placed anteriorly. There is a tiny residual pneumothorax se en at the right lung base. There is a small to moderate right pleural effusion which is partially loc ulated superiorly. There is obstruction of the right upper lobe bronchus from mucoid material in the right upper lobe atelectasis. Small to moderate left pleural effusion is present. There is patchy airspace consolidation in both kimo ngs. No significant pericardial effusion. Mildly enlarged right-sided hilar and right mediastinal lym ph nodes. Upper abdomen reveals TIPS stent. No acute findings. CONCLUSION: 1. Small caliber right chest tube with near complete resolution of previous right pneumothorax. 2. Small to moderate bilateral pleural effusions partially loculated in the upper right chest. 3. Obstruction of the right upper lobe bronchus from apparent mucoid material with right upper lobe a telectasis. Patchy airspace disease in both lungs, especially perihilar most characteristic of bronchopneumonia Dung Ellsworth MD on November 10, 2017 at 20:28 Board Certified Radiologist. This report was verified electronically.
[2017-11-10] MEDS ORDERED: PHYTONADIONE INJ 10 MG in SODIUM CHLORIDE 0.9% INJ 50 ML IV ONE (21:00)
[2017-11-11] VITALS (15 sets, daily range): BP systolic 93–106; BP diastolic 54–67; PULSE 57–78; RESP 10–24; TEMP 96.6–98; O2SAT 96–99
[2017-11-11] MEDS: metroNIDAZOLE 500 MG INJ 100 ML IV SCH ×3 (01:35→17:18)
[2017-11-11] MEDS: PIPERACIL-TAZO 4.5 GM PREMIX 100 ML IV SCH ×4 (02:26→20:12)
[2017-11-11] MEDS: VANCOMYCIN INJ 1,000 MG in SODIUM CHLOR 0.9% 250 ML INJ 250 ML IV SCH ×2 (02:26→20:30)
[2017-11-11] MEDS: NOREPINEPHRINE 4 MG/D5W 250 ML IV PRN (02:26)
[2017-11-11] MEDS: CHLORHEXIDINE GLUCONATE 2 % 1 PACK (2 CLOTHS) TOP SCH (02:27)
[2017-11-11] MEDS: RESP: ALBUTEROL 2.5 MG/IPRATROPIUM 0.5 MG NEB (SCH) NEB ×4 (03:58→22:00)
[2017-11-11] MEDS: RESP: SODIUM CHLORIDE 3% 4 ML NEB NEB SCH ×3 (03:59→22:00)
[2017-11-11] MEDS: MORPHINE SULFATE 4 MG/ML INJ IV PUSH PRN ×2 (04:56→19:54)
[2017-11-11] MEDS: HYDROCORTISONE SOD SUCCINATE 100 MG VIAL IV PUSH SCH ×4 (04:56→17:18)
[2017-11-11] MEDS: DEXTROSE 5%-LACTATED RING INJ 1,000 ML IV SCH ×2 (05:00→16:08)
--- NOTE | 2017-11-11 05:19 | RADRPT ---
EXAM DATE/TIME: 11/11/2017 03:28 [facility] COMPARISON: CHEST SINGLE AP, November 10, 2017, 19:20. INDICATIONS : Shortness of breath. Evaluate right sided pneumothorax MEDICAL HISTORY : Cardiovascular disease. Hypertension. Chronic obstructive pulmonary SURGICAL HISTORY : Colon resection ENCOUNTER: Subsequent ACUITY: 1 day PAIN SCORE: 5/10 LOCATION: Bilateral chest FINDINGS: Right chest pigtail thoracostomy tube is again noted. Diffuse bilateral infiltrates are stable. Worse evelyn left effusion. Cardiac contours are grossly stable. CONCLUSION: Worsening left pleural effusion Oc Fletcher MD on November 11, 2017 at 5:16 Board Certified Radiologist. This report was verified electronically.
[2017-11-11 05:27] LABS: HEMATOCRIT 23.5 % (39.0-51.0); HEMOGLOBIN 7.8 GM/DL (13.0-17.0); MEAN CELL VOLUME 84.6 FL (80.0-100.0); MEAN CORPUSCULAR HGB CONC 33.1 % (32.0-36.0); MEAN PLATELET VOLUME 7.8 FL (7.0-11.0); PLATELET COUNT 317 TH/MM3 (150-450); RED BLOOD COUNT 2.77 MIL/MM3 (4.50-5.90); RED CELL DISTRIBUTION WIDTH 15.8 % (11.6-17.2); WHITE BLOOD COUNT 36.6 TH/MM3 (4.0-11.0)
[2017-11-11 06:17] LABS: BICARBONATE 17.3 MEQ/L (21.0-32.0); CALCIUM 7.4 MG/DL (8.5-10.1); CALCIUM-PROTEIN CORRECTED 8.6 MG/DL (8.5-10.1); CREATININE 1.02 MG/DL (0.60-1.30); TOTAL PROTEIN 4.9 GM/DL (6.4-8.2)
[2017-11-11 07:33] LABS: BANDS 15 % (0-6); BURR CELLS 1+ (NORMAL); KERATOCYTES OCC (NORMAL); LYMPHOCYTES 2 % (9-44); MONOCYTES 1 % (0-8); NEUTROPHIL # MANUAL DIFF 35.5 TH/MM3 (1.8-7.7); OVALOCYTES 1+ (NORMAL); POLYS (SEG NEUTROPHILS) 82 % (16-70)
[2017-11-11] MEDS: NYSTATIN SUSP 500,000 U/5 ML CUP SWISH-SWAL SCH ×4 (08:37→20:12)
[2017-11-11] MEDS: SODIUM CHLORIDE 0.9% FLUSH 10 ML FLUSH IV FLUSH SCH ×2 (08:37→20:13)
[2017-11-11] MEDS: FAMOTIDINE 20 MG TAB PO SCH ×2 (08:37→20:12)
[2017-11-11] MEDS: POTASSIUM CHLOR 20 MEQ PREMIX 100 ML IV PRN ×2 (08:37→11:00)
[2017-11-11] MEDS: ACETAMINOPHEN/HYDROcodone 325 MG/7.5 MG TAB PO PRN (10:31)
[2017-11-11] MEDS: FUROSEMIDE 20 MG/2 ML VIAL IV PUSH SCH ×2 (11:28→20:12)
[2017-11-11] MEDS ORDERED: SODIUM CHLOR 0.9% 250 ML INJ 250 ML IV ONE (11:30)
--- NOTE | 2017-11-11 12:07 | HHI.CCPN ---
Subjective Remarks/Hospital Course 11/09: 52-year-old male with a medical history significant for Crohn's disease who underwent E lap with terminal ileum/ascending colon resection by Dr. Lane on 10/19/17. Patient was subsequently discharged on 10/31. He presented back to the ER on 11/04 with abdominal pain underwent labs and CAT scan and was subsequently discharged from the ER and followed up with Dr. Lane. He did develop some wound dehiscence and the upper part of his incision site and some ha were removed by Dr. Lane. Patient presented back to the ER on 11/09 as he was not feeling well with generalized weakness and abdominal pain and was noted to be hypotensive in the ER with a leukocytosis. He received 2 L normal saline bolus and was given empiric Zosyn for antibiotic coverage. Dr. Pryor spoke with Dr. Lane. Patient was accepted for admission by critical care medicine service and is being admitted to the ICU. When I evaluated the patient he was laying in the ER stretcher with systolic blood pressure in the 90s having received 2 L normal saline bolus. He was complaining of pain all over at the time. He denied any shortness of breath nausea or vomiting currently. He denied any melena or rectal bleeding. Denies any fever or chills. He did have slight dehiscence of his upper abdominal incision site with foul smell but minimal discharge. History was obtained by reviewing records and discussion with the ER physician. Patient is not a very good historian. He also reportedly has a history of cirrhosis and has had a TIPS procedure in June 2017. He has been on diuretics at home. 11/10: Remains hypotensive last night despite fluid boluses hence was started on Levophed for pressor support. Complains of abdominal pain this morning. Denies any shortness of breath. Evaluated by ID and awaiting CT abdomen pelvis this morning. On Levophed 9 mics per minute. 11/11: Patient had right-sided anterior chest tube placed yesterday for pneumothorax with resolution of pneumothorax. Right upper lobe collapse seems to have opened up on x-ray today. Patient appears to be breathing comfortably but remains confused. Remains on Levophed Objective Vital Signs Date Time Temp Pulse Resp B/P (MAP) Pulse Ox O2 Delivery O2 Flow Rate FiO2 11/11/17 08:00 97.3 73 24 101/59 (73) 96 11/11/17 07:00 Nasal Cannula 2.00 11/11/17 04:00 50 Intake and Output 11/11/17 11/11/17 11/12/17 08:00 16:00 00:00 Intake Total 1150 ml Output Total 760 ml Balance 390 ml Result Diagram: 11/11/17 0500 11/11/17 0500 Imaging Last Impressions Chest X-Ray 11/09/17 1225 Signed Impressions: Service Date/Time: November 12:43 - CONCLUSION: 1. Patchy, diffuse parenchymal infiltrates unchanged from previous. Jus Rodrigez MD Objective Remarks Narrative GENERAL: Middle-aged male laying in bed, appears emaciated, disheveled SKIN: Focused skin assessment warm/dry. HEAD: Atraumatic. Normocephalic. EYES: Pupils equal and round. No scleral icterus. No injection or drainage. ENT: No nasal bleeding or discharge. Mucous membranes pink and moist. NECK: Trachea midline. No JVD. CARDIOVASCULAR: Regular rate and rhythm. No murmur appreciated. RESPIRATORY: No accessory muscle use. Clear to auscultation. Breath sounds equal bilaterally. Right upper chest pigtail catheter in place GASTROINTESTINAL: Abdomen soft, non-tender, nondistended. Hepatic and splenic margins not palpable. Midline surgical incision with wound dehiscence of 2 inch on the superior aspect of the wound. Serosanguineous drainage soaking the wound dressing. Some foul odor noted. MUSCULOSKELETAL: No obvious deformities. No clubbing. No cyanosis. No edema. NEUROLOGICAL: Awake and alert, oriented to person and place not to date. No obvious cranial nerve deficits. Motor grossly within normal limits. Normal speech. A/P Assessment and Plan 52-year-old male with: Abdominal pain Hypotension Dehydration Septic shock Iatrogenic right pneumothorax Crohn's disease status post recent terminal ileum/ascending colon resection 10/19 Wound dehiscence History of cirrhosis status post previous TIPS Plan: Neuro: Percocet as needed for pain. Follow neuro status. Cardiovascular: Continue fluid resuscitation. On Levophed for pressor support to maintain map greater than 65mm Hg. Holding diuretics. But restarted on Lasix today by Dr. Lane Pulmonary: Supplemental O2 as needed, bronchodilators as needed. Right upper chest pigtail chest tube placed for iatrogenic pneumothorax. Right upper lobe collapse seems to have resolved now. Continue aggressive pulmonary toilet GI/liver: P.o. diet as tolerated. Colorectal surgery Dr. Lane following for further evaluation of abdominal wound dehiscence following terminal ileum/ ascending colon resection. Renal/: IV hydration, strict intake output, monitor and replete electrodes, follow BUN creatinine. ID: Follow-up cultures. ID following. Continue Zosyn and vancomycin. ID added doxycycline and IV Flagyl on 11/09. Heme: Follow CBC and coags. Endocrine: Patient has been on and off steroids for Crohn's disease. Continue stress dose hydrocortisone 50 mg IV every 6 hourly in view of hypotension. Prophylaxis: Pepcid 20 mg p.o. twice daily for GI prophylaxis. Lovenox for DVT prophylaxis. Access: Peripheral IVs. RIJ central line placed 11/10/17 Condition critical Time spent on critical care excluding procedures 40 minutes Chapito Renae MD November 11, 2017 12:07
[2017-11-11] MEDS: DOXYCYCLINE 100 MG/NS 100 ML IV SCH ×4 (12:28)
--- NOTE | 2017-11-11 15:54 | RADRPT ---
EXAM DATE/TIME: 11/11/2017 14:19 [facility] COMPARISON: US ABDOMEN - LOWER LIMITED, June 15, 2017, 10:12. INDICATIONS : Ascites. MEDICAL HISTORY : Crohn's disease. Gastritis. Ascites. Pancreatitis. Hiatal Hernia SURGICAL HISTORY : Colon resection. ENCOUNTER: Initial ACUITY: 2 days PAIN SCORE: 3/10 LOCATION: Abdomen. AREA EVALUATED: Abdomen. FINDINGS: Imaging of the abdomen and pelvis was performed to evaluate for ascites for possible paracentesis. T race free fluid seen in all 4 quadrants. Inadequate amount for paracentesis. CONCLUSION: Trace ascites in the abdomen. Keegan Almaraz MD on November 11, 2017 at 15:52 Board Certified Radiologist. This report was verified electronically.
[2017-11-11] MEDS ORDERED: VANCOMYCIN TROUGH ONE (19:45)
--- NOTE | 2017-11-11 20:24 | RADRPT ---
EXAM DATE/TIME: 11/11/2017 19:40 [facility] COMPARISON: CHEST SINGLE AP, November 11, 2017, 3:28. INDICATIONS : Status post right sided chest tube removal. MEDICAL HISTORY : None. SURGICAL HISTORY : None. ENCOUNTER: Subsequent ACUITY: 1 day PAIN SCORE: 0/10 LOCATION: chest FINDINGS: Bilateral pulmonary infiltrates are again noted consistent with moderate to severe pulmonary edema ve rsus pneumonia. Clinical correlation is recommended. Right internal jugular central line has its tip in the superior vena cava. No pneumothorax is noted. The heart is stable. CONCLUSION: Stable diffuse bilateral pulmonary infiltrates consistent with moderate to severe pulmonary edema or pneumonia. Clinical correlation is recommended. García Devine MD on November 11, 2017 at 20:20 Board Certified Radiologist. This report was verified electronically.
[2017-11-11 20:53] LABS: CREATININE 1.1 MG/DL (0.60-1.30)
[2017-11-11 20:55] LABS: VANCOMYCIN TROUGH 12.3 MCG/ML (5.0-10.0)
[2017-11-12] VITALS (11 sets, daily range): BP systolic 94–149; BP diastolic 52–68; PULSE 58–92; RESP 13–20; TEMP 97.2–98.6; O2SAT 92–98
[2017-11-12] MEDS: DOXYCYCLINE 100 MG/NS 100 ML IV SCH ×4 (00:50→12:46)
[2017-11-12] MEDS: HYDROCORTISONE SOD SUCCINATE 100 MG VIAL IV PUSH SCH ×4 (00:50→17:22)
[2017-11-12] MEDS: metroNIDAZOLE 500 MG INJ 100 ML IV SCH ×3 (00:50→17:22)
[2017-11-12] MEDS: DEXTROSE 5%-LACTATED RING INJ 1,000 ML IV SCH ×3 (01:00→21:00)
[2017-11-12] MEDS: PIPERACIL-TAZO 4.5 GM PREMIX 100 ML IV SCH ×4 (02:00→20:33)
[2017-11-12] MEDS: RESP: SODIUM CHLORIDE 3% 4 ML NEB NEB SCH ×4 (04:00→20:35)
[2017-11-12] MEDS: CHLORHEXIDINE GLUCONATE 2 % 1 PACK (2 CLOTHS) TOP SCH (04:00)
[2017-11-12 05:39] LABS: AUTOMATED NEUTROPHIL # 26.9 TH/MM3 (1.8-7.7); HEMATOCRIT 26.2 % (39.0-51.0); HEMOGLOBIN 8.6 GM/DL (13.0-17.0); LYMPH % 4.6 % (9.0-44.0); LYMPHOCYTE # 1.3 TH/MM3 (1.0-4.8); MEAN CELL VOLUME 83.9 FL (80.0-100.0); MEAN CORPUSCULAR HEMOGLOBIN 27.5 PG (27.0-34.0); MEAN CORPUSCULAR HGB CONC 32.8 % (32.0-36.0); MEAN PLATELET VOLUME 7.8 FL (7.0-11.0); MONO % 3.6 % (0.0-8.0); MONOCYTE # 1.1 TH/MM3 (0-0.9); NEUT % 91.8 % (16.0-70.0); PLATELET COUNT 253 TH/MM3 (150-450); RED BLOOD COUNT 3.13 MIL/MM3 (4.50-5.90); RED CELL DISTRIBUTION WIDTH 15.4 % (11.6-17.2); WHITE BLOOD COUNT 29.3 TH/MM3 (4.0-11.0)
[2017-11-12 05:57] LABS: ALBUMIN 1.9 GM/DL (3.4-5.0); AST (GOT) 11 U/L (15-37); BICARBONATE 16.8 MEQ/L (21.0-32.0); BLOOD UREA NITROGEN 15 MG/DL (7-18); CALCIUM 7.8 MG/DL (8.5-10.1); CHLORIDE 120 MEQ/L (98-107); CREATININE 1.04 MG/DL (0.60-1.30); GLOMERULAR FILTRATION RATE 75 ML/MIN (>89); GLUCOSE,RANDOM 137 MG/DL (74-106); MAGNESIUM 1.2 MG/DL (1.5-2.5); SODIUM (NA) 147 MEQ/L (136-145)
[2017-11-12 05:58] LABS: ALT (GPT) 12 U/L (12-78)
[2017-11-12 06:00] LABS: ALKALINE PHOSPHATASE 136 U/L (45-117); TOTAL BILIRUBIN ADULT 1.2 MG/DL (0.2-1.0); TOTAL PROTEIN 4.7 GM/DL (6.4-8.2)
[2017-11-12] MEDS: RESP: ALBUTEROL 2.5 MG/IPRATROPIUM 0.5 MG NEB (SCH) NEB ×4 (06:06→19:41)
--- NOTE | 2017-11-12 06:32 | RADRPT ---
EXAM DATE/TIME: 11/12/2017 03:49 [facility] COMPARISON: CHEST SINGLE AP, November 11, 2017, 19:40. INDICATIONS : Shortness of breath. MEDICAL HISTORY : Chronic obstructive pulmonary disease. Cardiovascular disease. Hypertension. Crohn's disease. gas tritis. ascites. pancreatitis. hiatal hernia SURGICAL HISTORY : Colon resection. ENCOUNTER: Subsequent ACUITY: 3 days PAIN SCORE: 3/10 LOCATION: Bilateral chest FINDINGS: Right neck central line is stable in position. Diffuse bilateral perihilar infiltrates persist unchan ged. Cardiac contours are unchanged. CONCLUSION: Stable chest Oc Fletcher MD on November 12, 2017 at 6:30 Board Certified Radiologist. This report was verified electronically.
[2017-11-12] MEDS: MORPHINE SULFATE 4 MG/ML INJ IV PUSH PRN ×4 (07:03→21:30)
[2017-11-12] MEDS ORDERED: MAGNESIUM SULFATE 1 GM PREMIX 200 ML ONE (08:03)
[2017-11-12] MEDS: FAMOTIDINE 20 MG TAB PO SCH ×2 (08:05→20:33)
[2017-11-12] MEDS: NYSTATIN SUSP 500,000 U/5 ML CUP SWISH-SWAL SCH ×4 (08:05→20:33)
[2017-11-12] MEDS: SODIUM CHLORIDE 0.9% FLUSH 10 ML FLUSH IV FLUSH SCH ×2 (08:06→21:00)
[2017-11-12] MEDS: FUROSEMIDE 20 MG/2 ML VIAL IV PUSH SCH ×2 (08:06→20:33)
[2017-11-12] MEDS: POTASSIUM CHLOR 40 MEQ PREMIX 100 ML IV PRN (08:07)
--- NOTE | 2017-11-12 08:46 | HHI.PR ---
Subjective Remarks C/R Surg afebrile, VSS debi PO UO fair +BM Objective - Vital Signs Date Time Temp Pulse Resp B/P (MAP) Pulse Ox O2 Delivery O2 Flow Rate FiO2 11/12/17 08:00 97.6 68 20 136/68 (90) 98 11/12/17 07:00 Nasal Cannula 2.00 11/11/17 04:00 50 Result Diagram: 11/12/1750911/12/17 0510 Objective Remarks PE alert Abd - soft, open mid portion, clean, min tympany ha dc'd, wound dressed A/P Discharge Planning Imp: improving, WBC decr sono - no sign ascites wound clean - need to keep moist, abd Ashwin Barron MD November 12, 2017 08:46
--- NOTE | 2017-11-12 10:49 | HHI.CCPN ---
Subjective Remarks/Hospital Course 11/09: 52-year-old male with a medical history significant for Crohn's disease who underwent E lap with terminal ileum/ascending colon resection by Dr. Lane on 10/19/17. Patient was subsequently discharged on 10/31. He presented back to the ER on 11/04 with abdominal pain underwent labs and CAT scan and was subsequently discharged from the ER and followed up with Dr. Lane. He did develop some wound dehiscence and the upper part of his incision site and some ha were removed by Dr. Lane. Patient presented back to the ER on 11/09 as he was not feeling well with generalized weakness and abdominal pain and was noted to be hypotensive in the ER with a leukocytosis. He received 2 L normal saline bolus and was given empiric Zosyn for antibiotic coverage. Dr. Pryor spoke with Dr. Lane. Patient was accepted for admission by critical care medicine service and is being admitted to the ICU. When I evaluated the patient he was laying in the ER stretcher with systolic blood pressure in the 90s having received 2 L normal saline bolus. He was complaining of pain all over at the time. He denied any shortness of breath nausea or vomiting currently. He denied any melena or rectal bleeding. Denies any fever or chills. He did have slight dehiscence of his upper abdominal incision site with foul smell but minimal discharge. History was obtained by reviewing records and discussion with the ER physician. Patient is not a very good historian. He also reportedly has a history of cirrhosis and has had a TIPS procedure in June 2017. He has been on diuretics at home. 11/10: Remains hypotensive last night despite fluid boluses hence was started on Levophed for pressor support. Complains of abdominal pain this morning. Denies any shortness of breath. Evaluated by ID and awaiting CT abdomen pelvis this morning. On Levophed 9 mics per minute. 11/11: Patient had right-sided anterior chest tube placed yesterday for pneumothorax with resolution of pneumothorax. Right upper lobe collapse seems to have opened up on x-ray today. Patient appears to be breathing comfortably but remains confused. Remains on Levophed. 11/12: Resting comfortably in bed on nasal cannula. Off pressors. Dislodged pigtail catheter overnight however chest x-ray this morning does not show any pneumothorax. Objective Vital Signs Date Time Temp Pulse Resp B/P (MAP) Pulse Ox O2 Delivery O2 Flow Rate FiO2 11/12/17 08:00 97.6 68 20 136/68 (90) 98 11/12/17 07:00 Nasal Cannula 2.00 11/11/17 04:00 50 Intake and Output 11/12/17 11/12/17 11/13/17 08:00 16:00 00:00 Output Total 450 ml Balance -450 ml Result Diagram: 11/12/17 0510 11/12/17 0510 Imaging Last Impressions Chest X-Ray 11/09/17 1225 Signed Impressions: Service Date/Time: November 12:43 - CONCLUSION: 1. Patchy, diffuse parenchymal infiltrates unchanged from previous. Jus Rodrigez MD Objective Remarks Narrative GENERAL: Middle-aged male laying in bed, appears emaciated SKIN: Focused skin assessment warm/dry. HEAD: Atraumatic. Normocephalic. EYES: Pupils equal and round. No scleral icterus. No injection or drainage. ENT: No nasal bleeding or discharge. Mucous membranes pink and moist. NECK: Trachea midline. No JVD. CARDIOVASCULAR: Regular rate and rhythm. No murmur appreciated. RESPIRATORY: No accessory muscle use. Clear to auscultation. Breath sounds equal bilaterally. GASTROINTESTINAL: Abdomen soft, non-tender, nondistended. Hepatic and splenic margins not palpable. Midline surgical incision with wound dehiscence of 2 inch on the superior aspect of the wound. Serosanguineous drainage soaking the wound dressing. Some foul odor noted. MUSCULOSKELETAL: No obvious deformities. No clubbing. No cyanosis. No edema. NEUROLOGICAL: Awake and alert, oriented to person and place not to date. No obvious cranial nerve deficits. Motor grossly within normal limits. Normal speech. A/P Assessment and Plan 52-year-old male with: Abdominal pain Hypotension Dehydration Septic shock Iatrogenic right pneumothorax Crohn's disease status post recent terminal ileum/ascending colon resection 10/19 Wound dehiscence History of cirrhosis status post previous TIPS Plan: Neuro: Percocet as needed for pain. Follow neuro status. Cardiovascular: Continue fluid resuscitation. On Levophed for pressor support to maintain map greater than 65mm Hg. Holding diuretics. But restarted on Lasix today by Dr. Lane Pulmonary: Supplemental O2 as needed, bronchodilators as needed. Right pigtail catheter out, follow-up chest x-ray with no pneumothorax. GI/liver: P.o. diet as tolerated. Colorectal surgery Dr. Lane following for further evaluation of abdominal wound dehiscence following terminal ileum/ ascending colon resection. Renal/: IV hydration, strict intake output, monitor and replete electrodes, follow BUN creatinine. ID: Follow-up cultures. ID following. Continue Zosyn and vancomycin. ID added doxycycline and IV Flagyl on 11/09. Heme: Follow CBC and coags. Endocrine: Patient has been on and off steroids for Crohn's disease. Continue stress dose hydrocortisone 50 mg IV every 6 hourly in view of hypotension. Prophylaxis: Pepcid 20 mg p.o. twice daily for GI prophylaxis. Lovenox for DVT prophylaxis. Access: Peripheral IVs. RIJ central line placed 11/10/17 Paxton Hopper MD November 12, 2017 10:49
[2017-11-12] MEDS: VANCOMYCIN INJ 1,000 MG in SODIUM CHLOR 0.9% 250 ML INJ 250 ML IV SCH (12:50)
[2017-11-13] VITALS (14 sets, daily range): BP systolic 120–143; BP diastolic 64–73; PULSE 65–95; RESP 14–25; TEMP 97.6–98.2; O2SAT 91–94
[2017-11-13] MEDS: HYDROCORTISONE SOD SUCCINATE 100 MG VIAL IV PUSH SCH ×4 (00:50→17:01)
[2017-11-13] MEDS: metroNIDAZOLE 500 MG INJ 100 ML IV SCH ×4 (00:51→16:09)
[2017-11-13] MEDS: ACETAMINOPHEN/HYDROcodone 325 MG/7.5 MG TAB PO PRN ×5 (00:51→22:09)
[2017-11-13] MEDS: DOXYCYCLINE 100 MG/NS 100 ML IV SCH ×6 (00:58→23:50)
[2017-11-13] MEDS: PIPERACIL-TAZO 4.5 GM PREMIX 100 ML IV SCH ×4 (02:00→20:48)
[2017-11-13] MEDS: RESP: SODIUM CHLORIDE 3% 4 ML NEB NEB SCH ×4 (04:00→20:54)
[2017-11-13] MEDS: CHLORHEXIDINE GLUCONATE 2 % 1 PACK (2 CLOTHS) TOP SCH (04:00)
[2017-11-13] MEDS: RESP: ALBUTEROL 2.5 MG/IPRATROPIUM 0.5 MG NEB (SCH) NEB ×4 (04:39→20:54)
[2017-11-13] MEDS: MORPHINE SULFATE 4 MG/ML INJ IV PUSH PRN ×2 (06:00→17:00)
[2017-11-13 06:21] LABS: AUTOMATED NEUTROPHIL # 25.3 TH/MM3 (1.8-7.7); BASOPHIL % 0.1 % (0.0-2.0); HEMOGLOBIN 8.8 GM/DL (13.0-17.0); LYMPH % 4.4 % (9.0-44.0); LYMPHOCYTE # 1.3 TH/MM3 (1.0-4.8); MEAN CELL VOLUME 84.6 FL (80.0-100.0); MEAN CORPUSCULAR HEMOGLOBIN 28.7 PG (27.0-34.0); MEAN CORPUSCULAR HGB CONC 33.9 % (32.0-36.0); MEAN PLATELET VOLUME 8.1 FL (7.0-11.0); MONO % 6.8 % (0.0-8.0); MONOCYTE # 1.9 TH/MM3 (0-0.9); NEUT % 88.7 % (16.0-70.0); PLATELET COUNT 242 TH/MM3 (150-450); RED BLOOD COUNT 3.07 MIL/MM3 (4.50-5.90); RED CELL DISTRIBUTION WIDTH 15.6 % (11.6-17.2); WHITE BLOOD COUNT 28.5 TH/MM3 (4.0-11.0)
[2017-11-13 06:48] LABS: ALBUMIN 1.9 GM/DL (3.4-5.0); ALKALINE PHOSPHATASE 146 U/L (45-117); ALT (GPT) 13 U/L (12-78); AST (GOT) 20 U/L (15-37); BICARBONATE 17.4 MEQ/L (21.0-32.0); BLOOD UREA NITROGEN 12 MG/DL (7-18); CALCIUM 8.1 MG/DL (8.5-10.1); CHLORIDE 117 MEQ/L (98-107); CREATININE 0.91 MG/DL (0.60-1.30); GLOMERULAR FILTRATION RATE 87 ML/MIN (>89); GLUCOSE,RANDOM 113 MG/DL (74-106); SODIUM (NA) 145 MEQ/L (136-145); TOTAL BILIRUBIN ADULT 0.9 MG/DL (0.2-1.0); TOTAL PROTEIN 4.7 GM/DL (6.4-8.2)
[2017-11-13] MEDS: DEXTROSE 5%-LACTATED RING INJ 1,000 ML IV SCH ×2 (06:48→15:19)
[2017-11-13] MEDS: VANCOMYCIN INJ 1,000 MG in SODIUM CHLOR 0.9% 250 ML INJ 250 ML IV SCH (06:51)
[2017-11-13] MEDS: FAMOTIDINE 20 MG TAB PO SCH ×2 (08:09→20:48)
[2017-11-13] MEDS: NYSTATIN SUSP 500,000 U/5 ML CUP SWISH-SWAL SCH ×4 (08:09→20:48)
[2017-11-13] MEDS: SODIUM CHLORIDE 0.9% FLUSH 10 ML FLUSH IV FLUSH SCH ×2 (08:09→20:48)
[2017-11-13] MEDS: FUROSEMIDE 20 MG/2 ML VIAL IV PUSH SCH ×2 (08:09→20:48)
[2017-11-13 08:43] LABS: BANDS 10 % (0-6); LYMPHOCYTES 1 % (9-44); METAMYELOCYTES 1 % (0-1); MONOCYTES 1 % (0-8); NEUTROPHIL # MANUAL DIFF 27.9 TH/MM3 (1.8-7.7); POLYS (SEG NEUTROPHILS) 87 % (16-70)
[2017-11-13 08:44] LABS: BURR CELLS 1+ (NORMAL); OVALOCYTES 1+ (NORMAL)
[2017-11-13] MEDS: POTASSIUM CHLOR 40 MEQ PREMIX 100 ML IV PRN ×4 (09:26→20:49)
--- NOTE | 2017-11-13 12:18 | HHI.CCPN ---
Subjective Remarks/Hospital Course 11/09: 52-year-old male with a medical history significant for Crohn's disease who underwent E lap with terminal ileum/ascending colon resection by Dr. Lane on 10/19/17. Patient was subsequently discharged on 10/31. He presented back to the ER on 11/04 with abdominal pain underwent labs and CAT scan and was subsequently discharged from the ER and followed up with Dr. Lane. He did develop some wound dehiscence and the upper part of his incision site and some ha were removed by Dr. Lane. Patient presented back to the ER on 11/09 as he was not feeling well with generalized weakness and abdominal pain and was noted to be hypotensive in the ER with a leukocytosis. He received 2 L normal saline bolus and was given empiric Zosyn for antibiotic coverage. Dr. Pryor spoke with Dr. Lane. Patient was accepted for admission by critical care medicine service and is being admitted to the ICU. When I evaluated the patient he was laying in the ER stretcher with systolic blood pressure in the 90s having received 2 L normal saline bolus. He was complaining of pain all over at the time. He denied any shortness of breath nausea or vomiting currently. He denied any melena or rectal bleeding. Denies any fever or chills. He did have slight dehiscence of his upper abdominal incision site with foul smell but minimal discharge. History was obtained by reviewing records and discussion with the ER physician. Patient is not a very good historian. He also reportedly has a history of cirrhosis and has had a TIPS procedure in June 2017. He has been on diuretics at home. 11/10: Remains hypotensive last night despite fluid boluses hence was started on Levophed for pressor support. Complains of abdominal pain this morning. Denies any shortness of breath. Evaluated by ID and awaiting CT abdomen pelvis this morning. On Levophed 9 mics per minute. 11/11: Patient had right-sided anterior chest tube placed yesterday for pneumothorax with resolution of pneumothorax. Right upper lobe collapse seems to have opened up on x-ray today. Patient appears to be breathing comfortably but remains confused. Remains on Levophed. 11/12: Resting comfortably in bed on nasal cannula. Off pressors. Dislodged pigtail catheter overnight however chest x-ray this morning does not show any pneumothorax. 11/13: Breathing comfortably with supplemental oxygen. Acceptably strong cough. White count remains elevated at 28,000. No specific complaints. Remains well hydrated. Objective Vital Signs Date Time Temp Pulse Resp B/P (MAP) Pulse Ox O2 Delivery O2 Flow Rate FiO2 11/13/17 12:00 97.6 95 23 138/66 (90) 94 11/13/17 11:29 Nasal Cannula 5.00 11/11/17 04:00 50 Intake and Output 11/13/17 11/13/17 11/14/17 08:00 16:00 00:00 Intake Total 500 ml 1150 ml Output Total 600 ml Balance -100 ml 1150 ml Result Diagram: 11/13/17 0530 11/13/17 0530 Imaging Last Impressions Chest X-Ray 11/09/17 1225 Signed Impressions: Service Date/Time: November 12:43 - CONCLUSION: 1. Patchy, diffuse parenchymal infiltrates unchanged from previous. Jus Rodrigez MD Objective Remarks Narrative GENERAL: Middle-aged male laying in bed, cachectic. SKIN: warm/dry. HEAD: Atraumatic. Normocephalic. EYES: Pupils equal and round. No scleral icterus. No injection or drainage. ENT: No nasal bleeding or discharge. Mucous membranes pink and moist. NECK: Trachea midline. Airway is widely patent and no obstructive sounds. CARDIOVASCULAR: Regular rate and rhythm. No murmur appreciated. No JVD. RESPIRATORY: No accessory muscle use. Clear to auscultation. Breath sounds equal bilaterally. Non-labored. GASTROINTESTINAL: Abdomen soft, non-tender, nondistended. Midline surgical incision with wound dehiscence of 2 inch on the superior aspect of the wound. Serosanguineous drainage soaking the wound dressing. MUSCULOSKELETAL: No obvious deformities. No clubbing. No cyanosis. No edema. Well perfused. NEUROLOGICAL: Awake and alert, oriented to person and place not to date. Motor grossly within normal limits. Normal speech. A/P Assessment and Plan 52-year-old male with: Abdominal pain Hypotension Dehydration Septic shock Iatrogenic right pneumothorax Crohn's disease status post recent terminal ileum/ascending colon resection 10/19 Wound dehiscence History of cirrhosis status post previous TIPS Plan: Neuro: Percocet as needed for pain. Follow neuro status. Cardiovascular: Continue fluid resuscitation. Off Levophed for pressor support. Restarted on Lasix today by Dr. Lane Pulmonary: Supplemental O2 as needed, bronchodilators as needed. Right pigtail catheter out, follow-up chest x-ray with no pneumothorax. GI/liver: P.o. diet as tolerated. Colorectal surgery Dr. Lane following for further evaluation of abdominal wound dehiscence following terminal ileum/ ascending colon resection. Renal/: IV hydration, strict intake output, monitor and replete electrodes, follow BUN creatinine. ID: Follow-up cultures. ID following. Continue Zosyn and vancomycin. ID added doxycycline and IV Flagyl on 11/09. Heme: Follow CBC and coags. Endocrine: Patient has been on and off steroids for Crohn's disease. Continue stress dose hydrocortisone 50 mg IV every 6 hourly in view of hypotension. Prophylaxis: Pepcid 20 mg p.o. twice daily for GI prophylaxis. Lovenox for DVT prophylaxis. Access: Peripheral IVs. RIJ central line placed 11/10/17 Kirt Archuleta MD November 13, 2017 12:18
--- NOTE | 2017-11-13 22:23 | HHI.PR ---
Subjective Remarks C/R Surg afebrile, VSS debi PO UO fair - guerin dc'd +BM Objective - Vital Signs Date Time Temp Pulse Resp B/P (MAP) Pulse Ox O2 Delivery O2 Flow Rate FiO2 11/13/17 20:54 91 Nasal Cannula 5.00 11/13/17 20:00 97.8 83 22 120/64 (82) 11/13/17 19:00 50 Result Diagram: 11/13/17 0530 11/13/17 1755 Objective Remarks PE alert Abd - soft, open mid portion, clean, min tympany ha dc'd, wound dressed A/P Discharge Planning Imp: improving, WBC decr wound clean - need to keep moist, abd binder pain management Ashwin Lane MD November 13, 2017 22:23
[2017-11-13] MEDS: ALPRAZolam 0.5 MG TAB PO PRN (23:31)
[2017-11-14] VITALS (19 sets, daily range): BP systolic 120–154; BP diastolic 60–84; PULSE 68–98; RESP 17–29; TEMP 97–99.1; O2SAT 58–98
[2017-11-14] MEDS: MORPHINE SULFATE 4 MG/ML INJ IV PUSH PRN ×4 (00:33→21:48)
[2017-11-14] MEDS: metroNIDAZOLE 500 MG INJ 100 ML IV SCH ×3 (02:07→16:38)
[2017-11-14] MEDS: VANCOMYCIN INJ 1,000 MG in SODIUM CHLOR 0.9% 250 ML INJ 250 ML IV SCH ×2 (02:54→21:00)
[2017-11-14] MEDS: PIPERACIL-TAZO 4.5 GM PREMIX 100 ML IV SCH ×4 (03:28→20:00)
[2017-11-14] MEDS: DEXTROSE 5%-LACTATED RING INJ 1,000 ML IV SCH (03:29)
[2017-11-14] MEDS: RESP: ALBUTEROL 2.5 MG/IPRATROPIUM 0.5 MG NEB (SCH) NEB ×5 (03:52→22:21)
[2017-11-14] MEDS: RESP: SODIUM CHLORIDE 3% 4 ML NEB NEB SCH ×4 (03:52→19:52)
[2017-11-14] MEDS: CHLORHEXIDINE GLUCONATE 2 % 1 PACK (2 CLOTHS) TOP SCH (04:00)
[2017-11-14] MEDS: HYDROCORTISONE SOD SUCCINATE 100 MG VIAL IV PUSH SCH ×2 (05:50→18:28)
[2017-11-14] MEDS: ALPRAZolam 0.5 MG TAB PO PRN ×3 (09:35→23:58)
[2017-11-14 09:36] LABS: AUTOMATED NEUTROPHIL # 35.8 TH/MM3 (1.8-7.7); BASOPHIL # 0.1 TH/MM3 (0-0.2); BASOPHIL % 0.2 % (0.0-2.0); HEMATOCRIT 30.1 % (39.0-51.0); HEMOGLOBIN 9.8 GM/DL (13.0-17.0); LYMPH % 5.9 % (9.0-44.0); LYMPHOCYTE # 2.4 TH/MM3 (1.0-4.8); MEAN CELL VOLUME 85.5 FL (80.0-100.0); MEAN CORPUSCULAR HEMOGLOBIN 27.8 PG (27.0-34.0); MEAN CORPUSCULAR HGB CONC 32.5 % (32.0-36.0); MEAN PLATELET VOLUME 8.3 FL (7.0-11.0); MONO % 5.6 % (0.0-8.0); MONOCYTE # 2.3 TH/MM3 (0-0.9); NEUT % 88.3 % (16.0-70.0); PLATELET COUNT 281 TH/MM3 (150-450); RED BLOOD COUNT 3.52 MIL/MM3 (4.50-5.90); RED CELL DISTRIBUTION WIDTH 15.9 % (11.6-17.2); WHITE BLOOD COUNT 40.5 TH/MM3 (4.0-11.0)
[2017-11-14] MEDS: FAMOTIDINE 20 MG TAB PO SCH ×2 (09:36→20:38)
[2017-11-14] MEDS: NYSTATIN SUSP 500,000 U/5 ML CUP SWISH-SWAL SCH ×4 (09:36→20:39)
[2017-11-14 09:59] LABS: BICARBONATE 18.2 MEQ/L (21.0-32.0); CALCIUM 8.4 MG/DL (8.5-10.1); CREATININE 0.89 MG/DL (0.60-1.30)
[2017-11-14] MEDS: FUROSEMIDE 40 MG/4 ML VIAL IV SCH ×2 (10:00→20:38)
[2017-11-14 10:13] LABS: BANDS 3 % (0-6); LYMPHOCYTES 8 % (9-44); MONOCYTES 6 % (0-8); MYELOCYTES 1 % (0-0); NEUTROPHIL # MANUAL DIFF 34.8 TH/MM3 (1.8-7.7); POLYS (SEG NEUTROPHILS) 82 % (16-70)
[2017-11-14 10:15] LABS: BURR CELLS 2+ (NORMAL); OVALOCYTES 1+ (NORMAL)
--- NOTE | 2017-11-14 10:30 | HHI.CCPN ---
Subjective Remarks/Hospital Course 11/09: 52-year-old male with a medical history significant for Crohn's disease who underwent E lap with terminal ileum/ascending colon resection by Dr. Lane on 10/19/17. Patient was subsequently discharged on 10/31. He presented back to the ER on 11/04 with abdominal pain underwent labs and CAT scan and was subsequently discharged from the ER and followed up with Dr. Lane. He did develop some wound dehiscence and the upper part of his incision site and some ha were removed by Dr. Lane. Patient presented back to the ER on 11/09 as he was not feeling well with generalized weakness and abdominal pain and was noted to be hypotensive in the ER with a leukocytosis. He received 2 L normal saline bolus and was given empiric Zosyn for antibiotic coverage. Dr. Pryor spoke with Dr. Lane. Patient was accepted for admission by critical care medicine service and is being admitted to the ICU. When I evaluated the patient he was laying in the ER stretcher with systolic blood pressure in the 90s having received 2 L normal saline bolus. He was complaining of pain all over at the time. He denied any shortness of breath nausea or vomiting currently. He denied any melena or rectal bleeding. Denies any fever or chills. He did have slight dehiscence of his upper abdominal incision site with foul smell but minimal discharge. History was obtained by reviewing records and discussion with the ER physician. Patient is not a very good historian. He also reportedly has a history of cirrhosis and has had a TIPS procedure in June 2017. He has been on diuretics at home. 11/10: Remains hypotensive last night despite fluid boluses hence was started on Levophed for pressor support. Complains of abdominal pain this morning. Denies any shortness of breath. Evaluated by ID and awaiting CT abdomen pelvis this morning. On Levophed 9 mics per minute. 11/11: Patient had right-sided anterior chest tube placed yesterday for pneumothorax with resolution of pneumothorax. Right upper lobe collapse seems to have opened up on x-ray today. Patient appears to be breathing comfortably but remains confused. Remains on Levophed. 11/12: Resting comfortably in bed on nasal cannula. Off pressors. Dislodged pigtail catheter overnight however chest x-ray this morning does not show any pneumothorax. 11/13: Breathing comfortably with supplemental oxygen. Acceptably strong cough. White count remains elevated at 28,000. No specific complaints. Remains well hydrated. 11/14: Clearly more distress from yesterday. Increased FiO2 requirements. WBC 40 ,000. Weight is up a lot but little evidence of peripheral edema. Lung function not improving with aggressive diuresis. Objective Vital Signs Date Time Temp Pulse Resp B/P (MAP) Pulse Ox O2 Delivery O2 Flow Rate FiO2 11/14/17 09:47 67 Simple Mask 10.00 11/14/17 08:00 97.6 87 18 121/61 (81) 11/14/17 03:52 21 Intake and Output 11/14/17 11/14/17 11/15/17 08:00 16:00 00:00 Intake Total 1720 ml Output Total 1500 ml Balance 220 ml Result Diagram: 11/14/1783611/14/17836 Imaging Last Impressions Chest X-Ray 11/09/17 1225 Signed Impressions: Service Date/Time: November 12:43 - CONCLUSION: 1. Patchy, diffuse parenchymal infiltrates unchanged from previous. Jus Rodrigez MD Objective Remarks Narrative GENERAL: Middle-aged male laying in bed, cachectic. SKIN: Warm/dry. HEAD: Atraumatic. Normocephalic. EYES: Pupils equal and round. No scleral icterus. No injection or drainage. ENT: No nasal bleeding or discharge. Mucous membranes pink and moist. NECK: Trachea midline. Airway is widely patent and no obstructive sounds. CARDIOVASCULAR: Regular rate and rhythm. No murmur appreciated. No JVD. RESPIRATORY: Present accessory muscle use. Diffuse sonorous rhonchi. Breath sounds equal bilaterally. Labored pattern. GASTROINTESTINAL: Abdomen soft, non-tender, nondistended. Midline surgical incision with wound dehiscence of 2 inch on the superior aspect of the wound. Serosanguineous drainage soaking the wound dressing. MUSCULOSKELETAL: No obvious deformities. No clubbing. No cyanosis. No edema. Well perfused. NEUROLOGICAL: Awake and alert, anxious, oriented to person and place not to date. Motor grossly within normal limits. Normal speech. A/P Assessment and Plan 52-year-old male with: Abdominal pain Hypotension Dehydration Septic shock Iatrogenic right pneumothorax Crohn's disease status post recent terminal ileum/ascending colon resection 10/19 Wound dehiscence History of cirrhosis status post previous TIPS Bilateral lung infiltrates Plan: Neuro: Percocet as needed for pain. Follow neuro status. Cardiovascular: Continue diuretics. Off Levophed for pressor support. Pulmonary: Supplemental O2 as needed, bronchodilators as needed. Right pigtail catheter out, follow-up chest x-ray with no pneumothorax. GI/liver: P.o. diet as tolerated. Colorectal surgery Dr. Lane following for further evaluation of abdominal wound dehiscence following terminal ileum/ ascending colon resection. Renal/: Minimal iv fluid, strict intake output, monitor and replete electrodes , follow BUN creatinine. ID: Follow-up cultures. ID following. Continue Zosyn and vancomycin. ID added doxycycline and IV Flagyl on 11/09. Heme: Follow CBC and coags. Endocrine: Patient has been on and off steroids for Crohn's disease. Reduce stress dose hydrocortisone 50 mg IV every 12 hours. Prophylaxis: Pepcid 20 mg p.o. twice daily for GI prophylaxis. Lovenox for DVT prophylaxis. Access: Peripheral IVs. RIJ central line placed 11/10/17 Overall impression: Patient is critically ill with deteriorating respiratory function. Renal function is tolerating aggressive diuresis but lung function worse today then yesterday. Leukocytosis exceeds steroid effect. Pursue infectious etiologies, smoldering sepsis. Transfer to [facility]. Critical care 40 mins aside from procedures. Kirt Archuleta MD November 14, 2017 10:30
--- NOTE | 2017-11-14 11:28 | RADRPT ---
EXAM DATE/TIME: 11/14/2017 10:35 [facility] COMPARISON: CHEST SINGLE AP, November 11, 2017, 3:28. CHEST SINGLE AP, November 12, 2017, 3:49. INDICATIONS : Congestion and shortness of breath. MEDICAL HISTORY : Cardiovascular disease. Crohns disease. Pancreatitis. SURGICAL HISTORY : None. ENCOUNTER: Subsequent ACUITY: 4 - 6 days PAIN SCORE: 0/10 LOCATION: Bilateral chest FINDINGS: Stable right IJ central line. Diffuse bilateral patchy interstitial and alveolar opacities which appe ar less consolidated in the right lung but with increased involvement of the lower lobes. [employer] stinal contours are within normal limits. Remainder of the exam is unchanged. CONCLUSION: 1. Patchy bilateral interstitial and alveolar opacities with have improved in the perihilar region bu t are now more diffuse. Preston Gonzalez MD on November 14, 2017 at 11:23 Board Certified Radiologist. This report was verified electronically.
[2017-11-14] MEDS: DOXYCYCLINE 100 MG/NS 100 ML IV SCH ×2 (13:41)
[2017-11-14] MEDS: SODIUM CHLORIDE 0.9% FLUSH 10 ML FLUSH IV FLUSH SCH ×2 (13:42→20:38)
[2017-11-14] MEDS: ACETAMINOPHEN/HYDROcodone 325 MG/7.5 MG TAB PO PRN (16:38)
[2017-11-14] MEDS ORDERED: PHARMACY ORDERED LAB ONE (19:45)
--- NOTE | 2017-11-14 21:55 | HHI.PR ---
Subjective Remarks C/R Surg afebrile, VSS some SOB debi PO UO adeq +BM Objective - Vital Signs Date Time Temp Pulse Resp B/P (MAP) Pulse Ox O2 Delivery O2 Flow Rate FiO2 11/14/17 19:54 90 Non-Rebreather 15.00 11/14/17 18:00 68 11/14/17 17:30 26 11/14/17 16:00 97.1 126/60 (82) 11/14/17 12:30 100 Result Diagram: 11/14/17 0837 11/14/17 0837 Objective Remarks PE alert Abd - soft, open mid portion, clean, min tympany wound dressed A/P Discharge Planning Imp: SOB - back in ICU incr lasix wound clean - need to keep moist, abd binder pain management Ashwin Lane MD November 14, 2017 21:55
[2017-11-15] VITALS (14 sets, daily range): BP systolic 113–135; BP diastolic 58–66; PULSE 60–84; RESP 16–31; TEMP 97.6–98.8; O2SAT 89–98
[2017-11-15] MEDS: DOXYCYCLINE 100 MG/NS 100 ML IV SCH ×4 (00:30→11:13)
[2017-11-15] MEDS: metroNIDAZOLE 500 MG INJ 100 ML IV SCH ×3 (01:00→16:12)
[2017-11-15] MEDS: PIPERACIL-TAZO 4.5 GM PREMIX 100 ML IV SCH ×4 (02:00→20:06)
[2017-11-15] MEDS: RESP: ALBUTEROL 2.5 MG/IPRATROPIUM 0.5 MG NEB (SCH) NEB ×4 (03:39→22:25)
[2017-11-15] MEDS: RESP: SODIUM CHLORIDE 3% 4 ML NEB NEB SCH ×3 (03:39→16:19)
[2017-11-15] MEDS: CHLORHEXIDINE GLUCONATE 2 % 1 PACK (2 CLOTHS) TOP SCH (04:00)
[2017-11-15] MEDS: HYDROCORTISONE SOD SUCCINATE 100 MG VIAL IV PUSH SCH ×2 (05:01→18:12)
[2017-11-15 05:50] LABS: AUTOMATED NEUTROPHIL # 28.9 TH/MM3 (1.8-7.7); BASOPHIL # 0.1 TH/MM3 (0-0.2); BASOPHIL % 0.2 % (0.0-2.0); EOSINOPHIL % 0.1 % (0.0-4.0); HEMATOCRIT 27.7 % (39.0-51.0); HEMOGLOBIN 9.2 GM/DL (13.0-17.0); LYMPH % 6.1 % (9.0-44.0); MEAN CELL VOLUME 82.9 FL (80.0-100.0); MEAN CORPUSCULAR HEMOGLOBIN 27.5 PG (27.0-34.0); MEAN CORPUSCULAR HGB CONC 33.2 % (32.0-36.0); MEAN PLATELET VOLUME 7.9 FL (7.0-11.0); MONO % 5.3 % (0.0-8.0); MONOCYTE # 1.7 TH/MM3 (0-0.9); NEUT % 88.3 % (16.0-70.0); PLATELET COUNT 243 TH/MM3 (150-450); RED BLOOD COUNT 3.34 MIL/MM3 (4.50-5.90); RED CELL DISTRIBUTION WIDTH 15.7 % (11.6-17.2); WHITE BLOOD COUNT 32.7 TH/MM3 (4.0-11.0)
[2017-11-15] MEDS ORDERED: VANCOMYCIN INJ 1,250 MG in SODIUM CHLOR 0.9% 250 ML INJ 250 ML IV SCH (06:00)
[2017-11-15 06:18] LABS: BICARBONATE 25.8 MEQ/L (21.0-32.0); CALCIUM 7.8 MG/DL (8.5-10.1); CREATININE 0.91 MG/DL (0.60-1.30)
[2017-11-15] MEDS: MORPHINE SULFATE 4 MG/ML INJ IV PUSH PRN (06:47)
[2017-11-15 08:01] LABS: ACANTHOCYTES OCC (NORMAL); BANDS 3 % (0-6); MONOCYTES 3 % (0-8); NEUTROPHIL # MANUAL DIFF 31.7 TH/MM3 (1.8-7.7); OVALOCYTES 1+ (NORMAL); POLYS (SEG NEUTROPHILS) 94 % (16-70)
[2017-11-15] MEDS: SODIUM CHLORIDE 0.9% FLUSH 10 ML FLUSH IV FLUSH SCH ×2 (08:08→20:07)
[2017-11-15] MEDS: NYSTATIN SUSP 500,000 U/5 ML CUP SWISH-SWAL SCH ×4 (08:08→20:07)
[2017-11-15] MEDS: FAMOTIDINE 20 MG TAB PO SCH ×2 (08:08→20:07)
[2017-11-15] MEDS ORDERED: FLUCONAZOLE 400 MG PREMIX BAG 200 ML IV ONE (10:00)
--- NOTE | 2017-11-15 10:21 | HHI.CCPN ---
Subjective Remarks/Hospital Course 11/09: 52-year-old male with a medical history significant for Crohn's disease who underwent E lap with terminal ileum/ascending colon resection by Dr. Lane on 10/19/17. Patient was subsequently discharged on 10/31. He presented back to the ER on 11/04 with abdominal pain underwent labs and CAT scan and was subsequently discharged from the ER and followed up with Dr. Lane. He did develop some wound dehiscence and the upper part of his incision site and some ha were removed by Dr. Lane. Patient presented back to the ER on 11/09 as he was not feeling well with generalized weakness and abdominal pain and was noted to be hypotensive in the ER with a leukocytosis. He received 2 L normal saline bolus and was given empiric Zosyn for antibiotic coverage. Dr. Pryor spoke with Dr. Lane. Patient was accepted for admission by critical care medicine service and is being admitted to the ICU. When I evaluated the patient he was laying in the ER stretcher with systolic blood pressure in the 90s having received 2 L normal saline bolus. He was complaining of pain all over at the time. He denied any shortness of breath nausea or vomiting currently. He denied any melena or rectal bleeding. Denies any fever or chills. He did have slight dehiscence of his upper abdominal incision site with foul smell but minimal discharge. History was obtained by reviewing records and discussion with the ER physician. Patient is not a very good historian. He also reportedly has a history of cirrhosis and has had a TIPS procedure in June 2017. He has been on diuretics at home. 11/10: Remains hypotensive last night despite fluid boluses hence was started on Levophed for pressor support. Complains of abdominal pain this morning. Denies any shortness of breath. Evaluated by ID and awaiting CT abdomen pelvis this morning. On Levophed 9 mics per minute. 11/11: Patient had right-sided anterior chest tube placed yesterday for pneumothorax with resolution of pneumothorax. Right upper lobe collapse seems to have opened up on x-ray today. Patient appears to be breathing comfortably but remains confused. Remains on Levophed. 11/12: Resting comfortably in bed on nasal cannula. Off pressors. Dislodged pigtail catheter overnight however chest x-ray this morning does not show any pneumothorax. 11/13: Breathing comfortably with supplemental oxygen. Acceptably strong cough. White count remains elevated at 28,000. No specific complaints. Remains well hydrated. 11/14: Clearly more distress from yesterday. Increased FiO2 requirements. WBC 40 ,000. Weight is up a lot but little evidence of peripheral edema. Lung function not improving with aggressive diuresis. 11/15: somewhat improved from yesterday. off norepinephrine. wbc downtrended slightly. wound culture growing hira, and given patient's chronic immunosuppressed course, fungal etiologies would be in the differential. net - 900cc/24h. cr stable. remains on NRB and high fio2 requirements, although suspect more ARDS than fluid overload as a cause for his hypoxemia. ROS otherwise negative and subjectively patient feels better today compared with yesterday. abdominal pain mild and persistent. Objective Vital Signs Date Time Temp Pulse Resp B/P (MAP) Pulse Ox O2 Delivery O2 Flow Rate FiO2 11/15/17 08:00 96 Non-Rebreather 15.00 100 11/15/17 08:00 97.8 73 18 128/66 (86) Intake and Output 11/15/17 11/15/17 11/16/17 08:00 16:00 00:00 Intake Total 140 ml Output Total 1200 ml Balance -1060 ml Result Diagram: 11/15/17 0515 11/15/17 0515 Imaging Last Impressions Chest X-Ray 11/09/17 1225 Signed Impressions: Service Date/Time: November 12:43 - CONCLUSION: 1. Patchy, diffuse parenchymal infiltrates unchanged from previous. Jus Rodrigez MD Objective Remarks GENERAL: Middle-aged male laying in bed, cachectic. SKIN: Warm/dry. HEAD: Atraumatic. Normocephalic. EYES: Pupils equal and round. No scleral icterus. No injection or drainage. ENT: No nasal bleeding or discharge. Mucous membranes pink and moist. NECK: Trachea midline. Airway is widely patent and no obstructive sounds. CARDIOVASCULAR: Regular rate and rhythm. No JVD. RESPIRATORY: Present accessory muscle use. Diffuse sonorous rhonchi. Breath sounds equal bilaterally. GASTROINTESTINAL: Abdomen soft, non-tender, nondistended. Midline surgical incision with wound dehiscence of 2 inch on the superior aspect of the wound. Serosanguineous drainage soaking the wound dressing. MUSCULOSKELETAL: No obvious deformities. No clubbing. No cyanosis. No edema. Well perfused. NEUROLOGICAL: Awake and alert, anxious, oriented to person and place not to date. Motor grossly within normal limits. Normal speech. A/P Assessment and Plan Assessment: 52-year-old male with Crohn's disease and admitted with resolving septic shock from unclear source. Wound culture growing hira, and given patient' comorbid conditions, this could be a causative agent and not merely colonization. will add Diflucan to his antimicrobial coverage. He has completed a full 7 day course of zosyn and currently has double-coverage for intra- abdominal anaerobes with flagyl, so we will plan to finish his zosyn tonight and d/c this. If he clinically declines again, would recommend re-broadening using a different class such as Cefepime and re-culture. Will leave doxy, flagyl , vanc today, although suspect we could d/c vanc in the near future. remains very high risk with persistent hypoxemia and ARDS. Acute hypoxemia ARDS Severe acute protein calorie malnutrition Severe hypokalemia Hypernatremia Free water deficit Acute intravascular volume overload Abdominal pain Septic shock - resolving. Iatrogenic right pneumothorax- resolved. Crohn's disease status post recent terminal ileum/ascending colon resection 10/19 Wound dehiscence History of cirrhosis status post previous TIPS Plan: Neuro: Percocet as needed for pain. Follow neuro status. Cardiovascular: Continue diuretics. Off Levophed for pressor support. Pulmonary: Supplemental O2 as needed, bronchodilators as needed. GI/liver: P.o. diet as tolerated. Colorectal surgery Dr. Lane following for further evaluation of abdominal wound dehiscence following terminal ileum/ ascending colon resection. Renal/: start d5w to mitigate hypernatremia with ongoing diuresis. strict intake output, monitor and replete electrodes, aggressive KCl replacement while on diuretics. follow BUN creatinine. ID: Follow-up cultures. ID following. d/c Zosyn (completed full 7 day course) . continue doxy, flagyl, vanc. add Fluconazole iv. re-culture if clinically declines and re-broaden to cefepime. Heme: Follow CBC and coags. Endocrine: Patient has been on and off steroids for Crohn's disease. taper hydrocortisone steroids slowly. Prophylaxis: Pepcid 20 mg p.o. twice daily for GI prophylaxis. Lovenox for DVT prophylaxis. Access: Peripheral IVs. RIJ central line placed 11/10/17: d/c CVL. Overall impression: o2 requirement remains high and hypoxemia continues to be a high risk, complex problem. suspect ongoing sepsis and fungal source is a likely possibility. remain in ICU. highly complex and high risk for decompensation. Tesfaye Echavarria MD November 15, 2017 10:21
[2017-11-15] MEDS: DEXTROSE 5% IN WATE 1000ML INJ 1,000 ML IV SCH (11:13)
[2017-11-15] MEDS: POTASSIUM CHLOR 40 MEQ PREMIX 100 ML IV PRN (11:28)
[2017-11-15] MEDS: ACETAMINOPHEN/HYDROcodone 325 MG/7.5 MG TAB PO PRN ×2 (14:21→21:42)
[2017-11-15] MEDS: FUROSEMIDE 40 MG/4 ML VIAL IV SCH ×2 (14:22→20:06)
[2017-11-15] MEDS: VANCOMYCIN INJ 1,500 MG in SODIUM CHLORID 0.9% 500 ML INJ 500 ML IV SCH (18:12)
[2017-11-15] MEDS: POTASSIUM CHLOR 20 MEQ PREMIX 100 ML IV PRN ×2 (21:39→23:33)
--- NOTE | 2017-11-15 22:51 | HHI.PR ---
Subjective Remarks C/R Surg afebrile, VSS debi PO UO adeq +BM - loose stool Objective - Vital Signs Date Time Temp Pulse Resp B/P (MAP) Pulse Ox O2 Delivery O2 Flow Rate FiO2 11/15/17 22:28 94 Partial Rebreather 13.00 11/15/17 18:00 64 11/15/17 16:00 97.6 22 118/58 (78) 11/15/17 08:00 100 Result Diagram: 11/15/17 0515 11/15/171952 Objective Remarks PE alert Abd - soft, open mid portion, clean, min tympany wound dressed A/P Discharge Planning Imp: SOB - back in ICU incr lasix wound clean - need to keep moist, abd Ashwin Barron MD November 15, 2017 22:51
[2017-11-15] MEDS ORDERED: POTASSIUM CHLORIDE 10 MEQ CONTROLLED RELEASE TAB PO ONE (23:00)
[2017-11-16] VITALS (14 sets, daily range): BP systolic 119–127; BP diastolic 57–68; PULSE 66–91; RESP 16–24; TEMP 98–98.1; O2SAT 90–99
[2017-11-16] MEDS: ALPRAZolam 0.5 MG TAB PO PRN (00:36)
[2017-11-16] MEDS: metroNIDAZOLE 500 MG INJ 100 ML IV SCH ×3 (01:00→17:43)
[2017-11-16] MEDS: POTASSIUM CHLOR 20 MEQ PREMIX 100 ML IV PRN ×6 (01:51→15:41)
[2017-11-16] MEDS: RESP: ALBUTEROL 2.5 MG/IPRATROPIUM 0.5 MG NEB (SCH) NEB ×4 (03:17→20:14)
[2017-11-16] MEDS: CHLORHEXIDINE GLUCONATE 2 % 1 PACK (2 CLOTHS) TOP SCH (04:00)
[2017-11-16] MEDS: POTASSIUM CHLORIDE 20 MEQ PWD PACKET PO SCH ×3 (04:15→08:43)
[2017-11-16] MEDS: ACETAMINOPHEN/HYDROcodone 325 MG/7.5 MG TAB PO PRN ×4 (04:30→20:04)
[2017-11-16 05:16] LABS: HEMATOCRIT 26.8 % (39.0-51.0); HEMOGLOBIN 9.1 GM/DL (13.0-17.0); MEAN CELL VOLUME 82.9 FL (80.0-100.0); MEAN CORPUSCULAR HEMOGLOBIN 28.1 PG (27.0-34.0); MEAN CORPUSCULAR HGB CONC 33.9 % (32.0-36.0); MEAN PLATELET VOLUME 8.1 FL (7.0-11.0); PLATELET COUNT 207 TH/MM3 (150-450); RED BLOOD COUNT 3.23 MIL/MM3 (4.50-5.90); RED CELL DISTRIBUTION WIDTH 15.4 % (11.6-17.2)
[2017-11-16 05:39] LABS: BICARBONATE 27.3 MEQ/L (21.0-32.0); CALCIUM 7.9 MG/DL (8.5-10.1); CREATININE 0.79 MG/DL (0.60-1.30)
[2017-11-16] MEDS: DEXTROSE 5% IN WATE 1000ML INJ 1,000 ML IV SCH (06:00)
[2017-11-16] MEDS: VANCOMYCIN INJ 1,500 MG in SODIUM CHLORID 0.9% 500 ML INJ 500 ML IV SCH (06:00)
[2017-11-16] MEDS: HYDROCORTISONE SOD SUCCINATE 100 MG VIAL IV PUSH SCH ×2 (06:00→17:45)
[2017-11-16] MEDS: NYSTATIN SUSP 500,000 U/5 ML CUP SWISH-SWAL SCH ×4 (08:34→20:04)
[2017-11-16] MEDS: FAMOTIDINE 20 MG TAB PO SCH ×2 (08:34→20:04)
--- NOTE | 2017-11-16 08:57 | RADRPT ---
EXAM DATE/TIME: 11/16/2017 08:24 [facility] COMPARISON: CHEST SINGLE AP, November 14, 2017, 10:35. INDICATIONS : Shortness of breath. MEDICAL HISTORY : Pancreatitis. Hernia, hiatal. Gastroesophageal reflux disease.Crohn's. SURGICAL HISTORY : Colon resection. Chest tube placement. ENCOUNTER: Subsequent ACUITY: 1 month PAIN SCORE: 0/10 LOCATION: Bilateral chest FINDINGS: A single view of the chest demonstrates persistent, diffuse mixed interstitial and air space process, most prominent in the right perihilar distribution where there actually may be some slight interval worsening. Heart size is normal. Osseous structures are intact. Right IJ central venous catheter appe ars to have been removed. CONCLUSION: 1. Persistent mixed interstitial and air space process, most prominent in the right perihilar distrib ution where there may be some slight interval worsening. 2. Interval removal of the right IJ central venous catheter Jarrell Coburn MD on November 16, 2017 at 8:51 Board Certified Radiologist. This report was verified electronically.
[2017-11-16] MEDS: SODIUM CHLORIDE 0.9% FLUSH 10 ML FLUSH IV FLUSH SCH ×2 (09:00→20:04)
[2017-11-16] MEDS: FUROSEMIDE 40 MG/4 ML VIAL IV SCH ×2 (09:00→20:04)
--- NOTE | 2017-11-16 09:11 | HHI.CCPN ---
Subjective Remarks/Hospital Course 11/09: 52-year-old male with a medical history significant for Crohn's disease who underwent E lap with terminal ileum/ascending colon resection by Dr. Lane on 10/19/17. Patient was subsequently discharged on 10/31. He presented back to the ER on 11/04 with abdominal pain underwent labs and CAT scan and was subsequently discharged from the ER and followed up with Dr. Lane. He did develop some wound dehiscence and the upper part of his incision site and some ha were removed by Dr. Lane. Patient presented back to the ER on 11/09 as he was not feeling well with generalized weakness and abdominal pain and was noted to be hypotensive in the ER with a leukocytosis. He received 2 L normal saline bolus and was given empiric Zosyn for antibiotic coverage. Dr. Pryor spoke with Dr. Lane. Patient was accepted for admission by critical care medicine service and is being admitted to the ICU. When I evaluated the patient he was laying in the ER stretcher with systolic blood pressure in the 90s having received 2 L normal saline bolus. He was complaining of pain all over at the time. He denied any shortness of breath nausea or vomiting currently. He denied any melena or rectal bleeding. Denies any fever or chills. He did have slight dehiscence of his upper abdominal incision site with foul smell but minimal discharge. History was obtained by reviewing records and discussion with the ER physician. Patient is not a very good historian. He also reportedly has a history of cirrhosis and has had a TIPS procedure in June 2017. He has been on diuretics at home. 11/10: Remains hypotensive last night despite fluid boluses hence was started on Levophed for pressor support. Complains of abdominal pain this morning. Denies any shortness of breath. Evaluated by ID and awaiting CT abdomen pelvis this morning. On Levophed 9 mics per minute. 11/11: Patient had right-sided anterior chest tube placed yesterday for pneumothorax with resolution of pneumothorax. Right upper lobe collapse seems to have opened up on x-ray today. Patient appears to be breathing comfortably but remains confused. Remains on Levophed. 11/12: Resting comfortably in bed on nasal cannula. Off pressors. Dislodged pigtail catheter overnight however chest x-ray this morning does not show any pneumothorax. 11/13: Breathing comfortably with supplemental oxygen. Acceptably strong cough. White count remains elevated at 28,000. No specific complaints. Remains well hydrated. 11/14: Clearly more distress from yesterday. Increased FiO2 requirements. WBC 40 ,000. Weight is up a lot but little evidence of peripheral edema. Lung function not improving with aggressive diuresis. 11/15: somewhat improved from yesterday. off norepinephrine. wbc downtrended slightly. wound culture growing hira, and given patient's chronic immunosuppressed course, fungal etiologies would be in the differential. net - 900cc/24h. cr stable. remains on NRB and high fio2 requirements, although suspect more ARDS than fluid overload as a cause for his hypoxemia. ROS otherwise negative and subjectively patient feels better today compared with yesterday. abdominal pain mild and persistent. 11/16: very slow improvements. severe ARDS continues and remains on NRB, but patient subjectively feels better. cxr this AM with persistence of bilateral diffuse airspace disease. net -1L/24h. ROS otherwise negative. afebrile now s/p full course zosyn. Objective Vital Signs Date Time Temp Pulse Resp B/P (MAP) Pulse Ox O2 Delivery O2 Flow Rate FiO2 11/16/17 08:00 98.0 80 21 127/59 (81) 92 11/16/17 08:00 Non-Rebreather 15.00 100 Intake and Output 11/16/17 11/16/17 11/17/17 08:00 16:00 00:00 Intake Total 480 ml Output Total 1800 ml Balance -1320 ml Result Diagram: 11/16/17 0456 11/16/17 0456 Imaging Last Impressions Chest X-Ray 11/09/17 1225 Signed Impressions: Service Date/Time: November 12:43 - CONCLUSION: 1. Patchy, diffuse parenchymal infiltrates unchanged from previous. Jus Rodrigez MD Objective Remarks GENERAL: Middle-aged male laying in bed, cachectic. SKIN: Warm/dry. HEAD: Atraumatic. Normocephalic. EYES: Pupils equal and round. No scleral icterus. No injection or drainage. ENT: No nasal bleeding or discharge. Mucous membranes pink and moist. NECK: Trachea midline. Airway is widely patent and no obstructive sounds. CARDIOVASCULAR: Regular rate and rhythm. No JVD. RESPIRATORY: unlabored this morning. Diffuse sonorous rhonchi. Breath sounds equal bilaterally. GASTROINTESTINAL: Abdomen soft, non-tender, nondistended. Midline surgical incision with wound dehiscence of 2 inch on the superior aspect of the wound. Serosanguineous drainage soaking the wound dressing. MUSCULOSKELETAL: No obvious deformities. No clubbing. No cyanosis. No edema. Well perfused. NEUROLOGICAL: Awake and alert, anxious, oriented to person and place not to date. Motor grossly within normal limits. Normal speech. A/P Assessment and Plan Assessment: 52-year-old male with Crohn's disease and admitted with resolving septic shock from unclear source. Wound culture growing hira, and given patient' comorbid conditions, this could be a causative agent and not merely colonization. Continue iv diflucan. s/p full course of zosyn. d/c vancomycin today. continue doxy, flagyl. remains very high risk with persistent hypoxemia and ARDS. Acute hypoxemia ARDS Severe acute protein calorie malnutrition Severe hypokalemia - persistent. Hypernatremia- persistent. Free water deficit - persistent. Acute intravascular volume overload - persistent Abdominal pain- slowly improving. Septic shock - resolving. Iatrogenic right pneumothorax- resolved. Crohn's disease status post recent terminal ileum/ascending colon resection 10/19 Wound dehiscence History of cirrhosis status post previous TIPS Plan: Neuro: Percocet as needed for pain. Follow neuro status. Cardiovascular: Continue diuretics. Pulmonary: Supplemental O2 as needed, bronchodilators as needed. GI/liver: P.o. diet as tolerated. Colorectal surgery Dr. Lane following for further evaluation of abdominal wound dehiscence following terminal ileum/ ascending colon resection. Renal/: continue d5w to mitigate hypernatremia with ongoing diuresis. strict intake output, monitor and replete electrodes, aggressive KCl replacement while on diuretics. follow BUN creatinine. ID: Follow-up cultures. ID following. s/p full 7-day course of Zosyn. continue doxy (day 6) and flagyl (day 7 today). d/c vanc today. continue fluconazole (added 11/15, day 2). re-culture if clinically declines and re- broaden to cefepime. Heme: Follow CBC and coags. Endocrine: Patient has been on and off steroids for Crohn's disease. taper hydrocortisone steroids slowly. Prophylaxis: Pepcid 20 mg p.o. twice daily for GI prophylaxis. Lovenox for DVT prophylaxis. Access: Peripheral IVs. Overall impression: o2 requirement remains high and hypoxemia continues to be a high risk, complex problem. suspect ongoing sepsis and fungal source is a likely possibility. remain in ICU. highly complex and high risk for decompensation. Tesfaye Echavarria MD November 16, 2017 09:11
[2017-11-16] MEDS: FLUCONAZOLE 200 MG PREMIX BAG 100 ML IV SCH (10:46)
[2017-11-16] MEDS: DOXYCYCLINE 100 MG/NS 100 ML IV SCH ×4 (13:17)
[2017-11-16] MEDS: MORPHINE SULFATE 4 MG/ML INJ IV PUSH PRN (16:28)
[2017-11-17] VITALS (14 sets, daily range): BP systolic 116–129; BP diastolic 57–72; PULSE 69–93; RESP 15–26; TEMP 97.6–99.1; O2SAT 92–98
[2017-11-17] MEDS: DOXYCYCLINE 100 MG/NS 100 ML IV SCH ×4 (00:50→12:13)
[2017-11-17] MEDS: POTASSIUM CHLOR 20 MEQ PREMIX 100 ML IV PRN ×3 (00:50→04:33)
[2017-11-17] MEDS: MORPHINE SULFATE 4 MG/ML INJ IV PUSH PRN ×2 (00:50→13:53)
[2017-11-17] MEDS: DEXTROSE 5% IN WATE 1000ML INJ 1,000 ML IV SCH ×2 (01:25→20:09)
[2017-11-17] MEDS: metroNIDAZOLE 500 MG INJ 100 ML IV SCH (01:25)
[2017-11-17] MEDS: CHLORHEXIDINE GLUCONATE 2 % 1 PACK (2 CLOTHS) TOP SCH (04:00)
[2017-11-17] MEDS: RESP: ALBUTEROL 2.5 MG/IPRATROPIUM 0.5 MG NEB (SCH) NEB ×4 (04:26→21:55)
[2017-11-17] MEDS: HYDROCORTISONE SOD SUCCINATE 100 MG VIAL IV PUSH SCH ×2 (05:11→17:30)
[2017-11-17 05:30] LABS: HEMATOCRIT 28.6 % (39.0-51.0); HEMOGLOBIN 9.5 GM/DL (13.0-17.0); MEAN CELL VOLUME 83.1 FL (80.0-100.0); MEAN CORPUSCULAR HEMOGLOBIN 27.8 PG (27.0-34.0); MEAN CORPUSCULAR HGB CONC 33.4 % (32.0-36.0); MEAN PLATELET VOLUME 8.3 FL (7.0-11.0); PLATELET COUNT 179 TH/MM3 (150-450); RED BLOOD COUNT 3.44 MIL/MM3 (4.50-5.90); RED CELL DISTRIBUTION WIDTH 15.8 % (11.6-17.2); WHITE BLOOD COUNT 28.9 TH/MM3 (4.0-11.0)
[2017-11-17] MEDS ORDERED: PHARMACY ORDERED LAB ONE (05:45)
[2017-11-17 05:54] LABS: BICARBONATE 27.7 MEQ/L (21.0-32.0); CALCIUM 7.8 MG/DL (8.5-10.1); CREATININE 0.66 MG/DL (0.60-1.30)
--- NOTE | 2017-11-17 07:38 | HHI.CCPN ---
Subjective Remarks/Hospital Course 11/09: 52-year-old male with a medical history significant for Crohn's disease who underwent E lap with terminal ileum/ascending colon resection by Dr. Lane on 10/19/17. Patient was subsequently discharged on 10/31. He presented back to the ER on 11/04 with abdominal pain underwent labs and CAT scan and was subsequently discharged from the ER and followed up with Dr. Lane. He did develop some wound dehiscence and the upper part of his incision site and some ha were removed by Dr. Lane. Patient presented back to the ER on 11/09 as he was not feeling well with generalized weakness and abdominal pain and was noted to be hypotensive in the ER with a leukocytosis. He received 2 L normal saline bolus and was given empiric Zosyn for antibiotic coverage. Dr. Pryor spoke with Dr. Lane. Patient was accepted for admission by critical care medicine service and is being admitted to the ICU. When I evaluated the patient he was laying in the ER stretcher with systolic blood pressure in the 90s having received 2 L normal saline bolus. He was complaining of pain all over at the time. He denied any shortness of breath nausea or vomiting currently. He denied any melena or rectal bleeding. Denies any fever or chills. He did have slight dehiscence of his upper abdominal incision site with foul smell but minimal discharge. History was obtained by reviewing records and discussion with the ER physician. Patient is not a very good historian. He also reportedly has a history of cirrhosis and has had a TIPS procedure in June 2017. He has been on diuretics at home. 11/10: Remains hypotensive last night despite fluid boluses hence was started on Levophed for pressor support. Complains of abdominal pain this morning. Denies any shortness of breath. Evaluated by ID and awaiting CT abdomen pelvis this morning. On Levophed 9 mics per minute. 11/11: Patient had right-sided anterior chest tube placed yesterday for pneumothorax with resolution of pneumothorax. Right upper lobe collapse seems to have opened up on x-ray today. Patient appears to be breathing comfortably but remains confused. Remains on Levophed. 11/12: Resting comfortably in bed on nasal cannula. Off pressors. Dislodged pigtail catheter overnight however chest x-ray this morning does not show any pneumothorax. 11/13: Breathing comfortably with supplemental oxygen. Acceptably strong cough. White count remains elevated at 28,000. No specific complaints. Remains well hydrated. 11/14: Clearly more distress from yesterday. Increased FiO2 requirements. WBC 40 ,000. Weight is up a lot but little evidence of peripheral edema. Lung function not improving with aggressive diuresis. 11/15: somewhat improved from yesterday. off norepinephrine. wbc downtrended slightly. wound culture growing hira, and given patient's chronic immunosuppressed course, fungal etiologies would be in the differential. net - 900cc/24h. cr stable. remains on NRB and high fio2 requirements, although suspect more ARDS than fluid overload as a cause for his hypoxemia. ROS otherwise negative and subjectively patient feels better today compared with yesterday. abdominal pain mild and persistent. 11/16: very slow improvements. severe ARDS continues and remains on NRB, but patient subjectively feels better. cxr this AM with persistence of bilateral diffuse airspace disease. net -1L/24h. ROS otherwise negative. afebrile now s/p full course zosyn. 11/17: continues to subjectively feel better. slower to desaturate with activity. still hypoxic requiring high fio2. afebrile. wbc slowly downtrending. ROS otherwise negative. Objective Vital Signs Date Time Temp Pulse Resp B/P (MAP) Pulse Ox O2 Delivery O2 Flow Rate FiO2 11/17/17 06:00 75 11/17/17 04:00 97.6 15 119/63 (81) 96 11/16/17 20:14 Non-Rebreather 15.00 11/16/17 08:00 100 Intake and Output 11/17/17 11/17/17 11/18/17 08:00 16:00 00:00 Intake Total 1300 ml Balance 1300 ml Result Diagram: 11/17/17 0445 11/17/17 0445 Imaging Last Impressions Chest X-Ray 11/09/17 1225 Signed Impressions: Service Date/Time: November 12:43 - CONCLUSION: 1. Patchy, diffuse parenchymal infiltrates unchanged from previous. Jus Rodrigez MD Objective Remarks GENERAL: Middle-aged male laying in bed, cachectic. SKIN: Warm/dry. HEAD: Atraumatic. Normocephalic. EYES: Pupils equal and round. No scleral icterus. No injection or drainage. ENT: No nasal bleeding or discharge. Mucous membranes pink and moist. NECK: Trachea midline. Airway is widely patent and no obstructive sounds. CARDIOVASCULAR: Regular rate and rhythm. No JVD. RESPIRATORY: unlabored this morning. Diffuse sonorous rhonchi. Breath sounds equal bilaterally. GASTROINTESTINAL: Abdomen soft, non-tender, nondistended. Midline surgical incision with wound dehiscence of 2 inch on the superior aspect of the wound. Serosanguineous drainage soaking the wound dressing. MUSCULOSKELETAL: No obvious deformities. No clubbing. No cyanosis. No edema. Well perfused. NEUROLOGICAL: Awake and alert, anxious, oriented to person and place not to date. Motor grossly within normal limits. Normal speech. A/P Assessment and Plan Assessment: 52-year-old male with Crohn's disease and admitted with resolving septic shock from unclear source. Wound culture growing ihra, and given patient' comorbid conditions, this could be a causative agent and not merely colonization. Continue iv diflucan. s/p full course of vanc, zosyn, flagyl. continue doxy. remains very high risk with persistent hypoxemia and ARDS. Acute hypoxemia ARDS Severe acute protein calorie malnutrition Severe hypokalemia - resolving Hypernatremia- resolving Free water deficit - persistent. Acute intravascular volume overload - persistent Abdominal pain- slowly improving. Septic shock - resolving. Iatrogenic right pneumothorax- resolved. Crohn's disease status post recent terminal ileum/ascending colon resection 10/19 Wound dehiscence History of cirrhosis status post previous TIPS Plan: Neuro: Percocet as needed for pain. Follow neuro status. Cardiovascular: Continue diuretics. Pulmonary: Supplemental O2 as needed, bronchodilators as needed. GI/liver: P.o. diet as tolerated. Colorectal surgery Dr. Lane following for further evaluation of abdominal wound dehiscence following terminal ileum/ ascending colon resection. Renal/: continue d5w to mitigate hypernatremia with ongoing diuresis. strict intake output, monitor and replete electrodes, aggressive KCl replacement while on diuretics. follow BUN creatinine. ID: Follow-up cultures. ID following. s/p full 7-day course of Zosyn and Vancomycin. d/c Flagyl today (completed full 7 day course). continue doxy (day 7 ). continue fluconazole (added 11/15, day 3). re-culture if clinically declines and re-broaden. Heme: Follow CBC and coags. Endocrine: Patient has been on and off steroids for Crohn's disease. taper hydrocortisone steroids slowly. Prophylaxis: Pepcid 20 mg p.o. twice daily for GI prophylaxis. Lovenox for DVT prophylaxis. Access: Peripheral IVs. Overall impression: o2 requirement remains high and hypoxemia continues to be a high risk, complex problem. suspect ongoing sepsis and fungal source is a likely possibility. remain in ICU. highly complex and high risk for decompensation. Tesfaye Echavarria MD November 17, 2017 07:38
[2017-11-17] MEDS: ACETAMINOPHEN/HYDROcodone 325 MG/7.5 MG TAB PO PRN ×2 (07:55→20:09)
[2017-11-17] MEDS: SODIUM CHLORIDE 0.9% FLUSH 10 ML FLUSH IV FLUSH SCH ×2 (09:00→19:57)
[2017-11-17] MEDS: NYSTATIN SUSP 500,000 U/5 ML CUP SWISH-SWAL SCH ×4 (09:31→20:09)
[2017-11-17] MEDS: FAMOTIDINE 20 MG TAB PO SCH ×2 (09:31→20:08)
[2017-11-17] MEDS: FUROSEMIDE 40 MG/4 ML VIAL IV SCH ×2 (09:31→20:09)
[2017-11-17] MEDS: FLUCONAZOLE 200 MG PREMIX BAG 100 ML IV SCH (10:27)
--- NOTE | 2017-11-17 21:05 | HHI.PR ---
Subjective Remarks C/R Surg afebrile, VSS debi PO UO adeq - neg balance +BM - less diarrhea Objective - Vital Signs Date Time Temp Pulse Resp B/P (MAP) Pulse Ox O2 Delivery O2 Flow Rate FiO2 11/17/17 20:00 81 11/17/17 20:00 98.1 22 120/58 (78) 95 11/17/17 19:00 Non-Rebreather 15.00 11/17/17 07:51 100 Result Diagram: 11/17/1744411/17/17444 Objective Remarks PE alert Abd - soft, open mid portion, clean, min tympany wound dressed A/P Discharge Planning Imp: SOB - stable incr lasix -cont neg fluid balance wound clean - need to keep moist, abd Ashwin Barron MD November 17, 2017 21:05
[2017-11-18] VITALS (14 sets, daily range): BP systolic 106–124; BP diastolic 56–70; PULSE 74–104; RESP 12–22; TEMP 98.1–98.9; O2SAT 89–97
[2017-11-18] MEDS: MORPHINE SULFATE 4 MG/ML INJ IV PUSH PRN ×5 (00:28→17:45)
[2017-11-18] MEDS: DOXYCYCLINE 100 MG/NS 100 ML IV SCH ×4 (00:29→11:31)
[2017-11-18] MEDS: CHLORHEXIDINE GLUCONATE 2 % 1 PACK (2 CLOTHS) TOP SCH (00:29)
[2017-11-18] MEDS: RESP: ALBUTEROL 2.5 MG/IPRATROPIUM 0.5 MG NEB (SCH) NEB ×4 (04:13→21:17)
[2017-11-18] MEDS: ACETAMINOPHEN/HYDROcodone 325 MG/7.5 MG TAB PO PRN ×4 (04:28→16:30)
[2017-11-18 05:34] LABS: HEMATOCRIT 28.3 % (39.0-51.0); HEMOGLOBIN 9.3 GM/DL (13.0-17.0); MEAN CELL VOLUME 84.8 FL (80.0-100.0); MEAN CORPUSCULAR HEMOGLOBIN 27.8 PG (27.0-34.0); MEAN CORPUSCULAR HGB CONC 32.8 % (32.0-36.0); MEAN PLATELET VOLUME 8.2 FL (7.0-11.0); PLATELET COUNT 154 TH/MM3 (150-450); RED BLOOD COUNT 3.34 MIL/MM3 (4.50-5.90); RED CELL DISTRIBUTION WIDTH 16.5 % (11.6-17.2); WHITE BLOOD COUNT 31.1 TH/MM3 (4.0-11.0)
[2017-11-18 06:05] LABS: BICARBONATE 27.4 MEQ/L (21.0-32.0); CREATININE 0.8 MG/DL (0.60-1.30)
[2017-11-18] MEDS: HYDROCORTISONE SOD SUCCINATE 100 MG VIAL IV PUSH SCH ×2 (06:10→17:44)
[2017-11-18] MEDS: POTASSIUM CHLOR 20 MEQ PREMIX 100 ML IV PRN ×5 (06:13→19:52)
--- NOTE | 2017-11-18 07:44 | HHI.CCPN ---
Subjective Remarks/Hospital Course 11/09: 52-year-old male with a medical history significant for Crohn's disease who underwent E lap with terminal ileum/ascending colon resection by Dr. Lane on 10/19/17. Patient was subsequently discharged on 10/31. He presented back to the ER on 11/04 with abdominal pain underwent labs and CAT scan and was subsequently discharged from the ER and followed up with Dr. Lane. He did develop some wound dehiscence and the upper part of his incision site and some ha were removed by Dr. Lane. Patient presented back to the ER on 11/09 as he was not feeling well with generalized weakness and abdominal pain and was noted to be hypotensive in the ER with a leukocytosis. He received 2 L normal saline bolus and was given empiric Zosyn for antibiotic coverage. Dr. Pryor spoke with Dr. Lane. Patient was accepted for admission by critical care medicine service and is being admitted to the ICU. When I evaluated the patient he was laying in the ER stretcher with systolic blood pressure in the 90s having received 2 L normal saline bolus. He was complaining of pain all over at the time. He denied any shortness of breath nausea or vomiting currently. He denied any melena or rectal bleeding. Denies any fever or chills. He did have slight dehiscence of his upper abdominal incision site with foul smell but minimal discharge. History was obtained by reviewing records and discussion with the ER physician. Patient is not a very good historian. He also reportedly has a history of cirrhosis and has had a TIPS procedure in June 2017. He has been on diuretics at home. 11/10: Remains hypotensive last night despite fluid boluses hence was started on Levophed for pressor support. Complains of abdominal pain this morning. Denies any shortness of breath. Evaluated by ID and awaiting CT abdomen pelvis this morning. On Levophed 9 mics per minute. 11/11: Patient had right-sided anterior chest tube placed yesterday for pneumothorax with resolution of pneumothorax. Right upper lobe collapse seems to have opened up on x-ray today. Patient appears to be breathing comfortably but remains confused. Remains on Levophed. 11/12: Resting comfortably in bed on nasal cannula. Off pressors. Dislodged pigtail catheter overnight however chest x-ray this morning does not show any pneumothorax. 11/13: Breathing comfortably with supplemental oxygen. Acceptably strong cough. White count remains elevated at 28,000. No specific complaints. Remains well hydrated. 11/14: Clearly more distress from yesterday. Increased FiO2 requirements. WBC 40 ,000. Weight is up a lot but little evidence of peripheral edema. Lung function not improving with aggressive diuresis. 11/15: somewhat improved from yesterday. off norepinephrine. wbc downtrended slightly. wound culture growing hira, and given patient's chronic immunosuppressed course, fungal etiologies would be in the differential. net - 900cc/24h. cr stable. remains on NRB and high fio2 requirements, although suspect more ARDS than fluid overload as a cause for his hypoxemia. ROS otherwise negative and subjectively patient feels better today compared with yesterday. abdominal pain mild and persistent. 11/16: very slow improvements. severe ARDS continues and remains on NRB, but patient subjectively feels better. cxr this AM with persistence of bilateral diffuse airspace disease. net -1L/24h. ROS otherwise negative. afebrile now s/p full course zosyn. 11/17: continues to subjectively feel better. slower to desaturate with activity. still hypoxic requiring high fio2. afebrile. wbc slowly downtrending. ROS otherwise negative. 11/18: Continues to require a nonrebreathing mask and radiographic appearance consistent with resolving ARDS. Objective Vital Signs Date Time Temp Pulse Resp B/P (MAP) Pulse Ox O2 Delivery O2 Flow Rate FiO2 11/18/17 06:00 79 11/18/17 04:00 98.1 22 120/70 (87) 97 11/17/17 21:55 Non-Rebreather 11/17/17 19:00 15.00 11/17/17 07:51 100 Intake and Output 11/18/17 11/18/17 11/19/17 08:00 16:00 00:00 Intake Total 800 ml Output Total 1200 ml Balance -400 ml Result Diagram: 11/18/1751111/18/17511 Imaging Last Impressions Chest X-Ray 11/09/17 1225 Signed Impressions: Service Date/Time: November 12:43 - CONCLUSION: 1. Patchy, diffuse parenchymal infiltrates unchanged from previous. Jus Rodrigez MD Objective Remarks GENERAL: Middle-aged male laying in bed, cachectic. SKIN: Warm/dry. HEAD: Atraumatic. Normocephalic. EYES: Pupils equal and round. No scleral icterus. No injection or drainage. ENT: No nasal bleeding or discharge. Mucous membranes pink and moist. NECK: Trachea midline. Airway is widely patent and no obstructive sounds. CARDIOVASCULAR: Regular rate and rhythm. No JVD. No murmur or rub. RESPIRATORY: Nonlabored this morning. Diffuse sonorous rhonchi. Breath sounds equal bilaterally. GASTROINTESTINAL: Abdomen soft, non-tender, nondistended. Midline surgical incision with wound dehiscence of 2 inch on the superior aspect of the wound. MUSCULOSKELETAL: No obvious deformities. No clubbing. No cyanosis. No edema. Well perfused. NEUROLOGICAL: Awake and alert, anxious, oriented to person and place not to date. Motor grossly within normal limits. Normal speech. A/P Assessment and Plan Assessment: 52-year-old male with Crohn's disease and admitted with resolving septic shock from unclear source. Wound culture growing hira, and given patient' comorbid conditions, this could be a causative agent and not merely colonization. Continue iv diflucan. s/p full course of vanc, zosyn, flagyl. continue doxy. remains very high risk with persistent hypoxemia and ARDS. Acute hypoxemia ARDS Severe acute protein calorie malnutrition Severe hypokalemia - resolving Hypernatremia- resolving Free water deficit - persistent. Acute intravascular volume overload - persistent Abdominal pain- slowly improving. Septic shock - resolving. Iatrogenic right pneumothorax- resolved. Crohn's disease status post recent terminal ileum/ascending colon resection 10/19 Wound dehiscence History of cirrhosis status post previous TIPS Plan: Neuro: Percocet as needed for pain. Follow neuro status. Cardiovascular: Continue diuretics. Pulmonary: Supplemental O2 as needed, bronchodilators as needed. GI/liver: P.o. diet as tolerated. Colorectal surgery Dr. Lane following for further evaluation of abdominal wound dehiscence following terminal ileum/ ascending colon resection. Renal/: continue d5w to mitigate hypernatremia with ongoing diuresis. strict intake output, monitor and replete electrodes, aggressive KCl replacement while on diuretics. follow BUN creatinine. ID: Follow-up cultures. ID following. s/p full 7-day course of Zosyn and Vancomycin. d/c Flagyl today (completed full 7 day course). continue doxy (day 7 ). continue fluconazole (added 11/15, day 3). re-culture if clinically declines and re-broaden. Heme: Follow CBC and coags. Endocrine: Patient has been on and off steroids for Crohn's disease. taper hydrocortisone steroids slowly. Prophylaxis: Pepcid 20 mg p.o. twice daily for GI prophylaxis. Lovenox for DVT prophylaxis. Access: Peripheral IVs. Overall impression: Oxygen requirement remains high and hypoxemia continues to render him high risk, complex problem. Suspect ongoing sepsis and fungal source is a likely possibility. remain in ICU. Kirt Archuleta MD November 18, 2017 07:44
[2017-11-18] MEDS: NYSTATIN SUSP 500,000 U/5 ML CUP SWISH-SWAL SCH ×4 (08:09→19:52)
[2017-11-18] MEDS: FUROSEMIDE 40 MG/4 ML VIAL IV SCH ×2 (08:10→19:52)
[2017-11-18] MEDS: SODIUM CHLORIDE 0.9% FLUSH 10 ML FLUSH IV FLUSH SCH ×2 (08:10→19:53)
[2017-11-18] MEDS: FAMOTIDINE 20 MG TAB PO SCH ×2 (08:10→19:52)
--- NOTE | 2017-11-18 09:54 | HHI.PR ---
Subjective Remarks Actually looks quite comfortable despite non rebreather requirements. Able to converse easily with no SOB. Tolerating diet Objective Vital Signs Date Time Temp Pulse Resp B/P (MAP) Pulse Ox O2 Delivery O2 Flow Rate FiO2 11/18/17 09:19 95 Non-Rebreather 15.00 11/18/17 07:00 95 Non-Rebreather 15.00 11/18/17 06:00 79 11/18/17 04:00 98.1 96 22 120/70 (87) 97 11/18/17 04:00 85 11/18/17 02:00 80 11/18/17 00:00 98.1 74 22 124/57 (79) 92 11/18/17 00:00 74 11/17/17 22:00 93 11/17/17 21:55 98 Non-Rebreather 11/17/17 20:00 81 11/17/17 20:00 98.1 81 22 120/58 (78) 95 11/17/17 19:00 95 Non-Rebreather 15.00 11/17/17 18:00 76 11/17/17 16:00 98.4 76 26 116/58 (77) 95 11/17/17 16:00 76 11/17/17 14:00 78 11/17/17 12:00 98.9 80 26 129/72 (91) 98 11/17/17 12:00 80 11/17/17 10:00 80 I/O 11/17/17 11/17/17 11/17/17 11/18/17 11/18/17 11/18/17 07:00 15:00 23:00 07:00 15:00 23:00 Intake Total 1300 ml 200 ml 800 ml 100 ml Output Total 200 ml 1350 ml 1200 ml Balance 1300 ml 0 ml -1350 ml -400 ml 100 ml Intake Oral 800 ml IV Total 1300 ml 200 ml 100 ml Output Urine Total 200 ml 1350 ml 1200 ml # Bowel Movements 1 3 Result Diagram: 11/18/1751111/18/17511 Objective Remarks VS-S Abd: continue wet to dry dressing and binder, wound not inspected I&Os- good diuresis Assessment and Plan Assessment and Plan Stable with slowly improving ARDS Leukemoid reaction to Steroids and Fungal sepsis Plan: continue present support level Oc Tierney MD November 18, 2017 09:54
[2017-11-18] MEDS: ALPRAZolam 0.5 MG TAB PO PRN (10:39)
[2017-11-18] MEDS: FLUCONAZOLE 200 MG PREMIX BAG 100 ML IV SCH (10:39)
[2017-11-18] MEDS: DEXTROSE 5% IN WATE 1000ML INJ 1,000 ML IV SCH (17:43)
[2017-11-19] VITALS (15 sets, daily range): BP systolic 100–123; BP diastolic 56–72; PULSE 81–101; RESP 14–37; TEMP 98.3–98.9; O2SAT 90–93
[2017-11-19] MEDS: DOXYCYCLINE 100 MG/NS 100 ML IV SCH ×6 (00:06→23:20)
[2017-11-19] MEDS: POTASSIUM CHLOR 20 MEQ PREMIX 100 ML IV PRN ×7 (00:06→20:38)
[2017-11-19] MEDS: CHLORHEXIDINE GLUCONATE 2 % 1 PACK (2 CLOTHS) TOP SCH (03:43)
[2017-11-19 04:03] LABS: HEMATOCRIT 27.6 % (39.0-51.0); MEAN CELL VOLUME 84.2 FL (80.0-100.0); MEAN CORPUSCULAR HEMOGLOBIN 27.5 PG (27.0-34.0); MEAN CORPUSCULAR HGB CONC 32.7 % (32.0-36.0); MEAN PLATELET VOLUME 8.9 FL (7.0-11.0); PLATELET COUNT 161 TH/MM3 (150-450); RED BLOOD COUNT 3.28 MIL/MM3 (4.50-5.90); RED CELL DISTRIBUTION WIDTH 16.4 % (11.6-17.2); WHITE BLOOD COUNT 29.9 TH/MM3 (4.0-11.0)
[2017-11-19 04:26] LABS: BICARBONATE 32.4 MEQ/L (21.0-32.0); CREATININE 0.59 MG/DL (0.60-1.30)
[2017-11-19] MEDS: MORPHINE SULFATE 4 MG/ML INJ IV PUSH PRN ×4 (05:35→17:48)
[2017-11-19] MEDS: HYDROCORTISONE SOD SUCCINATE 100 MG VIAL IV PUSH SCH (05:35)
--- NOTE | 2017-11-19 07:49 | HHI.PR ---
Subjective Remarks Able to converse easily with no SOB. Tolerating diet No pain. Objective Vital Signs Date Time Temp Pulse Resp B/P (MAP) Pulse Ox O2 Delivery O2 Flow Rate FiO2 11/19/17 07:00 92 Non-Rebreather 15.00 11/19/17 06:00 101 11/19/17 04:00 98.5 84 14 100/58 (72) 92 11/19/17 04:00 81 11/19/17 02:00 85 11/19/17 00:00 98.9 90 16 111/56 (74) 91 11/19/17 00:00 90 11/18/17 22:00 92 11/18/17 21:19 93 Partial Rebreather 15.00 11/18/17 20:00 96 11/18/17 20:00 98.9 96 22 119/57 (77) 89 11/18/17 19:00 90 Non-Rebreather 15.00 11/18/17 18:00 91 11/18/17 16:00 98.9 93 13 109/56 (73) 93 11/18/17 16:00 93 11/18/17 14:00 96 11/18/17 12:00 98.3 91 16 106/57 (73) 95 11/18/17 12:00 91 11/18/17 10:00 104 11/18/17 09:19 95 Non-Rebreather 15.00 11/18/17 08:00 98.2 80 12 118/59 (78) 92 11/18/17 08:00 80 I/O 11/18/17 11/18/17 11/18/17 11/19/17 11/19/17 11/19/17 07:00 15:00 23:00 07:00 15:00 23:00 Intake Total 800 ml 600 ml Output Total 1200 ml 1800 ml 1500 ml Balance -400 ml 600 ml -1800 ml -1500 ml Intake Oral 800 ml IV Total 600 ml Output Urine Total 1200 ml 1800 ml 1500 ml # Bowel Movements 3 0 2 Result Diagram: 11/19/17 0326 11/19/17325 Objective Remarks VS-S Abd: continue wet to dry dressing and binder, wound clean. SB in wound not dessicated but will need repair when more stable I&Os- good diuresis Assessment and Plan Assessment and Plan Stable with slowly improving ARDS Leukemoid reaction to Steroids and Fungal sepsis Plan: continue present support level. Continue wound care TIOc Yu MD November 19, 2017 07:49
[2017-11-19] MEDS: FUROSEMIDE 40 MG/4 ML VIAL IV SCH ×2 (08:18→21:11)
[2017-11-19] MEDS: FAMOTIDINE 20 MG TAB PO SCH ×2 (08:18→21:11)
[2017-11-19] MEDS: SODIUM CHLORIDE 0.9% FLUSH 10 ML FLUSH IV FLUSH SCH ×2 (08:18→21:11)
[2017-11-19] MEDS: ACETAMINOPHEN/HYDROcodone 325 MG/7.5 MG TAB PO PRN ×4 (08:18→21:11)
[2017-11-19] MEDS: NYSTATIN SUSP 500,000 U/5 ML CUP SWISH-SWAL SCH ×4 (08:18→21:11)
[2017-11-19] MEDS: FLUCONAZOLE 200 MG PREMIX BAG 100 ML IV SCH (10:27)
--- NOTE | 2017-11-19 11:20 | HHI.CCPN ---
Subjective Remarks/Hospital Course 11/09: 52-year-old male with a medical history significant for Crohn's disease who underwent E lap with terminal ileum/ascending colon resection by Dr. Lane on 10/19/17. Patient was subsequently discharged on 10/31. He presented back to the ER on 11/04 with abdominal pain underwent labs and CAT scan and was subsequently discharged from the ER and followed up with Dr. Lane. He did develop some wound dehiscence and the upper part of his incision site and some ha were removed by Dr. Lane. Patient presented back to the ER on 11/09 as he was not feeling well with generalized weakness and abdominal pain and was noted to be hypotensive in the ER with a leukocytosis. He received 2 L normal saline bolus and was given empiric Zosyn for antibiotic coverage. Dr. Pryor spoke with Dr. Lane. Patient was accepted for admission by critical care medicine service and is being admitted to the ICU. When I evaluated the patient he was laying in the ER stretcher with systolic blood pressure in the 90s having received 2 L normal saline bolus. He was complaining of pain all over at the time. He denied any shortness of breath nausea or vomiting currently. He denied any melena or rectal bleeding. Denies any fever or chills. He did have slight dehiscence of his upper abdominal incision site with foul smell but minimal discharge. History was obtained by reviewing records and discussion with the ER physician. Patient is not a very good historian. He also reportedly has a history of cirrhosis and has had a TIPS procedure in June 2017. He has been on diuretics at home. 11/10: Remains hypotensive last night despite fluid boluses hence was started on Levophed for pressor support. Complains of abdominal pain this morning. Denies any shortness of breath. Evaluated by ID and awaiting CT abdomen pelvis this morning. On Levophed 9 mics per minute. 11/11: Patient had right-sided anterior chest tube placed yesterday for pneumothorax with resolution of pneumothorax. Right upper lobe collapse seems to have opened up on x-ray today. Patient appears to be breathing comfortably but remains confused. Remains on Levophed. 11/12: Resting comfortably in bed on nasal cannula. Off pressors. Dislodged pigtail catheter overnight however chest x-ray this morning does not show any pneumothorax. 11/13: Breathing comfortably with supplemental oxygen. Acceptably strong cough. White count remains elevated at 28,000. No specific complaints. Remains well hydrated. 11/14: Clearly more distress from yesterday. Increased FiO2 requirements. WBC 40 ,000. Weight is up a lot but little evidence of peripheral edema. Lung function not improving with aggressive diuresis. 11/15: somewhat improved from yesterday. off norepinephrine. wbc downtrended slightly. wound culture growing hira, and given patient's chronic immunosuppressed course, fungal etiologies would be in the differential. net - 900cc/24h. cr stable. remains on NRB and high fio2 requirements, although suspect more ARDS than fluid overload as a cause for his hypoxemia. ROS otherwise negative and subjectively patient feels better today compared with yesterday. abdominal pain mild and persistent. 11/16: very slow improvements. severe ARDS continues and remains on NRB, but patient subjectively feels better. cxr this AM with persistence of bilateral diffuse airspace disease. net -1L/24h. ROS otherwise negative. afebrile now s/p full course zosyn. 11/17: continues to subjectively feel better. slower to desaturate with activity. still hypoxic requiring high fio2. afebrile. wbc slowly downtrending. ROS otherwise negative. 11/18: Continues to require a nonrebreathing mask and radiographic appearance consistent with resolving ARDS. 11/19: We will attempt to transition to a high flow nasal cannula to facilitate weaning FiO2. A contraction alkalosis is developing which has expedited his potassium wasting. Will attempt to reverse with Diamox. Objective Vital Signs Date Time Temp Pulse Resp B/P (MAP) Pulse Ox O2 Delivery O2 Flow Rate FiO2 11/19/17 10:00 98 11/19/17 08:00 98.3 16 123/63 (83) 92 11/19/17 07:59 Partial Rebreather 15.00 11/17/17 07:51 100 Intake and Output 11/19/17 11/19/17 11/20/17 08:00 16:00 00:00 Output Total 1500 ml Balance -1500 ml Result Diagram: 11/19/17 0326 11/19/17 0326 Imaging Last Impressions Chest X-Ray 11/09/17 1225 Signed Impressions: Service Date/Time: November 12:43 - CONCLUSION: 1. Patchy, diffuse parenchymal infiltrates unchanged from previous. Jus Rodrigez MD Objective Remarks GENERAL: Middle-aged male laying in bed, cachectic. SKIN: Warm/dry. HEAD: Atraumatic. Normocephalic. EYES: Pupils equal and round. No conjunctival icterus. No injection or drainage. ENT: No nasal bleeding or discharge. Mucous membranes pink and moist. NECK: Trachea midline. Airway is widely patent and no obstructive sounds. CARDIOVASCULAR: Regular rate and rhythm. No JVD. No murmur or rub. RESPIRATORY: Moderately labored. Diffuse sonorous rhonchi. Breath sounds equal bilaterally. GASTROINTESTINAL: Abdomen soft, non-tender, nondistended. Midline surgical incision with small wound dehiscence.superior aspect of the wound. MUSCULOSKELETAL: No obvious deformities. No clubbing. No cyanosis. No edema. Well perfused. NEUROLOGICAL: Awake and alert, anxious, oriented to person and place not to date. Motor grossly within normal limits. Normal speech, conversant A/P Assessment and Plan Assessment: 52-year-old male with Crohn's disease and admitted with resolving septic shock from unclear source. Wound culture growing hira, and given patient' comorbid conditions, this could be a causative agent and not merely colonization. Continue iv diflucan. s/p full course of vanc, zosyn, flagyl. continue doxy. remains very high risk with persistent hypoxemia and ARDS. Acute hypoxemia ARDS Severe acute protein calorie malnutrition Severe hypokalemia - resolving Hypernatremia- resolving Free water deficit - persistent. Acute intravascular volume overload - persistent Abdominal pain- slowly improving. Septic shock - resolving. Iatrogenic right pneumothorax- resolved. Crohn's disease status post recent terminal ileum/ascending colon resection 10/19 Wound dehiscence History of cirrhosis status post previous TIPS Plan: Neuro: Percocet as needed for pain. Follow neuro status. Cardiovascular: Continue diuretics. Pulmonary: Supplemental O2 as needed, bronchodilators as needed. High flow oxygen cannula. GI/liver: P.o. diet as tolerated. Colorectal surgery Dr. Lane following for further evaluation of abdominal wound dehiscence following terminal ileum/ ascending colon resection. Renal/: continue d5w to mitigate hypernatremia with ongoing diuresis. strict intake output, monitor and replete electrodes, aggressive KCl replacement while on diuretics. follow BUN creatinine. ID: Follow-up cultures. ID following. s/p full 7-day course of Zosyn and Vancomycin. d/c Flagyl (completed full 7 day course). continue doxy (day 7). continue fluconazole (added 11/15, day 3). re-culture if clinically declines and re-broaden. Heme: Follow CBC and coags. Endocrine: Patient has been on and off steroids for Crohn's disease. taper hydrocortisone steroids slowly. Prophylaxis: Pepcid 20 mg p.o. twice daily for GI prophylaxis. Lovenox for DVT prophylaxis. Access: Peripheral IVs. Overall impression: Oxygen requirement remains high, radiographically he has resolving ARDS. Kirt Archuleta MD November 19, 2017 11:20
[2017-11-19] MEDS: DEXTROSE 5% IN WATE 1000ML INJ 1,000 ML IV SCH (14:12)
[2017-11-19] MEDS: ALPRAZolam 0.5 MG TAB PO PRN ×2 (14:29→23:20)
[2017-11-20] VITALS (13 sets, daily range): BP systolic 90–151; BP diastolic 57–65; PULSE 80–114; RESP 27–32; TEMP 98.5–98.6; O2SAT 87–100
[2017-11-20 03:03] LABS: HEMATOCRIT 30.3 % (39.0-51.0); HEMOGLOBIN 9.8 GM/DL (13.0-17.0); MEAN CELL VOLUME 84.3 FL (80.0-100.0); MEAN CORPUSCULAR HEMOGLOBIN 27.3 PG (27.0-34.0); MEAN CORPUSCULAR HGB CONC 32.4 % (32.0-36.0); MEAN PLATELET VOLUME 8.9 FL (7.0-11.0); PLATELET COUNT 199 TH/MM3 (150-450); RED CELL DISTRIBUTION WIDTH 16.9 % (11.6-17.2)
[2017-11-20 03:34] LABS: BICARBONATE 29.1 MEQ/L (21.0-32.0); CALCIUM 7.7 MG/DL (8.5-10.1); CREATININE 0.61 MG/DL (0.60-1.30)
[2017-11-20] MEDS: CHLORHEXIDINE GLUCONATE 2 % 1 PACK (2 CLOTHS) TOP SCH ×2 (03:42→22:28)
[2017-11-20] MEDS: POTASSIUM CHLOR 20 MEQ PREMIX 100 ML IV PRN ×2 (03:52→05:48)
--- NOTE | 2017-11-20 06:01 | RADRPT ---
EXAM DATE/TIME: 11/20/2017 05:02 [facility] COMPARISON: CHEST SINGLE AP, November 16, 2017, 8:24. INDICATIONS : Shortness of breath MEDICAL HISTORY : Pancreatitis. Hernia, hiatal. Gastroesophageal reflux disease.Crohn's. SURGICAL HISTORY : Colon resection. Chest tube placement. ENCOUNTER: Subsequent ACUITY: 1 month PAIN SCORE: 0/10 LOCATION: Bilateral chest FINDINGS: A single view of the chest demonstrates bilateral airspace disease diffuse similar to November 16. Small e ffusions. Heart size normal. CONCLUSION: 1. Diffuse bilateral airspace disease similar to November 16. Small effusions. Dung Ellsworth MD on November 20, 2017 at 5:58 Board Certified Radiologist. This report was verified electronically.
[2017-11-20] MEDS ORDERED: POTASSIUM CHLORIDE 25 MEQ EFFERVESCENT TAB PO ONE (07:30)
--- NOTE | 2017-11-20 07:33 | HHI.CCPN ---
Subjective Remarks/Hospital Course 11/09: 52-year-old male with a medical history significant for Crohn's disease who underwent E lap with terminal ileum/ascending colon resection by Dr. Lane on 10/19/17. Patient was subsequently discharged on 10/31. He presented back to the ER on 11/04 with abdominal pain underwent labs and CAT scan and was subsequently discharged from the ER and followed up with Dr. Lane. He did develop some wound dehiscence and the upper part of his incision site and some ha were removed by Dr. Lane. Patient presented back to the ER on 11/09 as he was not feeling well with generalized weakness and abdominal pain and was noted to be hypotensive in the ER with a leukocytosis. He received 2 L normal saline bolus and was given empiric Zosyn for antibiotic coverage. Dr. Pryor spoke with Dr. Lane. Patient was accepted for admission by critical care medicine service and is being admitted to the ICU. When I evaluated the patient he was laying in the ER stretcher with systolic blood pressure in the 90s having received 2 L normal saline bolus. He was complaining of pain all over at the time. He denied any shortness of breath nausea or vomiting currently. He denied any melena or rectal bleeding. Denies any fever or chills. He did have slight dehiscence of his upper abdominal incision site with foul smell but minimal discharge. History was obtained by reviewing records and discussion with the ER physician. Patient is not a very good historian. He also reportedly has a history of cirrhosis and has had a TIPS procedure in June 2017. He has been on diuretics at home. 11/10: Remains hypotensive last night despite fluid boluses hence was started on Levophed for pressor support. Complains of abdominal pain this morning. Denies any shortness of breath. Evaluated by ID and awaiting CT abdomen pelvis this morning. On Levophed 9 mics per minute. 11/11: Patient had right-sided anterior chest tube placed yesterday for pneumothorax with resolution of pneumothorax. Right upper lobe collapse seems to have opened up on x-ray today. Patient appears to be breathing comfortably but remains confused. Remains on Levophed. 11/12: Resting comfortably in bed on nasal cannula. Off pressors. Dislodged pigtail catheter overnight however chest x-ray this morning does not show any pneumothorax. 11/13: Breathing comfortably with supplemental oxygen. Acceptably strong cough. White count remains elevated at 28,000. No specific complaints. Remains well hydrated. 11/14: Clearly more distress from yesterday. Increased FiO2 requirements. WBC 40 ,000. Weight is up a lot but little evidence of peripheral edema. Lung function not improving with aggressive diuresis. 11/15: somewhat improved from yesterday. off norepinephrine. wbc downtrended slightly. wound culture growing hira, and given patient's chronic immunosuppressed course, fungal etiologies would be in the differential. net - 900cc/24h. cr stable. remains on NRB and high fio2 requirements, although suspect more ARDS than fluid overload as a cause for his hypoxemia. ROS otherwise negative and subjectively patient feels better today compared with yesterday. abdominal pain mild and persistent. 11/16: very slow improvements. severe ARDS continues and remains on NRB, but patient subjectively feels better. cxr this AM with persistence of bilateral diffuse airspace disease. net -1L/24h. ROS otherwise negative. afebrile now s/p full course zosyn. 11/17: continues to subjectively feel better. slower to desaturate with activity. still hypoxic requiring high fio2. afebrile. wbc slowly downtrending. ROS otherwise negative. 11/18: Continues to require a nonrebreathing mask and radiographic appearance consistent with resolving ARDS. 11/19: We will attempt to transition to a high flow nasal cannula to facilitate weaning FiO2. A contraction alkalosis is developing which has expedited his potassium wasting. Will attempt to reverse with Diamox. 11/20: clinically stable. alternating between high flow NC and NRB. wbc uptrending, but afebrile. Objective Vital Signs Date Time Temp Pulse Resp B/P (MAP) Pulse Ox O2 Delivery O2 Flow Rate FiO2 11/20/17 06:00 80 11/20/17 04:00 98.6 27 125/63 (83) 94 11/19/17 20:31 High Flow Nasal Cannula 25.00 54 Intake and Output 11/20/17 11/20/17 11/21/17 08:00 16:00 00:00 Intake Total 480 ml Output Total 1500 ml Balance -1020 ml Result Diagram: 11/20/17 0250 11/20/17 0250 Imaging Last Impressions Chest X-Ray 11/09/17 1225 Signed Impressions: Service Date/Time: November 12:43 - CONCLUSION: 1. Patchy, diffuse parenchymal infiltrates unchanged from previous. Jus Rodrigez MD Objective Remarks GENERAL: Middle-aged male laying in bed, cachectic. SKIN: Warm/dry. HEAD: Atraumatic. Normocephalic. EYES: Pupils equal and round. No conjunctival icterus. No injection or drainage. ENT: No nasal bleeding or discharge. Mucous membranes pink and moist. NECK: Trachea midline. Airway is widely patent and no obstructive sounds. CARDIOVASCULAR: Regular rate and rhythm. No JVD. RESPIRATORY: Mildly labored. Diffuse sonorous rhonchi. Breath sounds equal bilaterally. GASTROINTESTINAL: Abdomen soft, non-tender, nondistended. Midline surgical incision with small wound dehiscence.superior aspect of the wound. MUSCULOSKELETAL: No obvious deformities. No clubbing. No cyanosis. No edema. Well perfused. NEUROLOGICAL: Awake and alert, anxious, oriented to person and place not to date. Motor grossly within normal limits. Normal speech, conversant A/P Assessment and Plan Assessment: 52-year-old male with Crohn's disease and admitted with resolving septic shock from unclear source. Wound culture growing hira, and given patient' comorbid conditions, this could be a causative agent and not merely colonization. Continue iv diflucan. s/p full course of vanc, zosyn, flagyl, and doxy. d/c doxy today. Flagyl should likely continue 10-14 days total. will repeat high resolution CT chest today to better eval infiltrates, but likely ARDS. will ask pulmonary to get involved, as this will likely become a chronic hypoxemia and he will likely need pulmonary follow up. can likely transition out of ICU to a step-down unit. Acute hypoxemia ARDS Severe acute protein calorie malnutrition Severe hypokalemia - resolving Hypernatremia- resolving Free water deficit - persistent. Acute intravascular volume overload - persistent Abdominal pain- slowly improving. Septic shock - resolved Iatrogenic right pneumothorax- resolved. Crohn's disease status post recent terminal ileum/ascending colon resection 10/19 Wound dehiscence History of cirrhosis status post previous TIPS Plan: Neuro: Percocet as needed for pain. Follow neuro status. Cardiovascular: Continue diuretics. Pulmonary: Supplemental O2 as needed, bronchodilators as needed. High flow oxygen cannula. repeat CT chest today. consult pulm for ongoing care and follow along. GI/liver: P.o. diet as tolerated. Colorectal surgery Dr. Lane following for further evaluation of abdominal wound dehiscence following terminal ileum/ ascending colon resection. Renal/: continue d5w to mitigate hypernatremia with ongoing diuresis. strict intake output, monitor and replete electrolytes, aggressive KCl replacement while on diuretics. follow BUN creatinine. ID: Follow-up cultures. ID following. s/p full course of Zosyn, vancomycin, flagyl, doxy. continue fluconazole (added 11/15, day 6). re-culture if clinically declines and re-broaden. check procalcitonin today. Heme: Follow CBC and coags. Endocrine: Patient has been on and off steroids for Crohn's disease. taper hydrocortisone steroids slowly. Prophylaxis: Pepcid 20 mg p.o. twice daily for GI prophylaxis. Lovenox for DVT prophylaxis. Access: Peripheral IVs. Overall impression: Oxygen requirement remains high, radiographically he has resolving ARDS. Tesfaye Echavarria MD November 20, 2017 07:33
[2017-11-20] MEDS: RESP: ALBUTEROL 2.5 MG/3 ML NEB (PRN) NEB ×2 (08:57→19:44)
[2017-11-20] MEDS: SODIUM CHLORIDE 0.9% FLUSH 10 ML FLUSH IV FLUSH SCH ×2 (09:00→19:58)
[2017-11-20] MEDS: FAMOTIDINE 20 MG TAB PO SCH ×2 (09:46→19:58)
[2017-11-20] MEDS: FUROSEMIDE 40 MG/4 ML VIAL IV SCH ×2 (09:46→19:58)
[2017-11-20] MEDS: NYSTATIN SUSP 500,000 U/5 ML CUP SWISH-SWAL SCH ×4 (09:47→19:58)
[2017-11-20] MEDS: DEXTROSE 5% IN WATE 1000ML INJ 1,000 ML IV SCH ×2 (09:47→21:00)
[2017-11-20] MEDS: FLUCONAZOLE 200 MG PREMIX BAG 100 ML IV SCH (09:48)
[2017-11-20] MEDS: ACETAMINOPHEN/HYDROcodone 325 MG/7.5 MG TAB PO PRN (10:10)
--- NOTE | 2017-11-20 11:32 | RADRPT ---
EXAM DATE/TIME: 11/20/2017 10:54 [facility] COMPARISON: CT THORAX W/O CONTRAST, November 10, 2017, 20:15. INDICATIONS : Increased dyspnea RADIATION DOSE: 4.74 CTDIvol (mGy) MEDICAL HISTORY : Chronic obstructive pulmonary disease. Crohns disease. Hypertension. SURGICAL HISTORY : Colon resection. ENCOUNTER: Initial ACUITY: 1 day PAIN SCALE: 0/10 LOCATION: chest TECHNIQUE: Volumetric scanning of the chest was performed. Using automated exposure control and adjustment of t he mA and/or kV according to patient size, radiation dose was kept as low as reasonably achievable to obtain optimal diagnostic quality images. DICOM format image data is available electronically for r eview and comparison. Follow-up recommendations for detected pulmonary nodules are based at a minimum on nodule size and pa tient risk factors according to Fleischner Society Guidelines. FINDINGS: Persistent airspace disease remains in the right upper lobe with coarse interstitial changes in both lungs and small bilateral pleural effusions. Parenchymal changes in the lung basses is moving toward s it honeycomb chronic fibrotic pattern. There is no pericardial effusion. There is no axillary adenopathy. There is no radiographically sig nificant mediastinal adenopathy. Minimal LAD calcifications are noted. Tips shunt is evident. Upper abdominal contents otherwise unremarkable. CONCLUSION: Increasing coarse interstitial changes in both lungs with small bilateral pleural effusions. Interst itial pattern in the base is moving towards it honeycomb pattern. Hernando Rodrigez MD FACR on November 20, 2017 at 11:27 Board Certified Radiologist. This report was verified electronically.
--- NOTE | 2017-11-20 18:43 | HHI.PR ---
Subjective Remarks Seems more SOB today on N/C Objective Vital Signs Date Time Temp Pulse Resp B/P (MAP) Pulse Ox O2 Delivery O2 Flow Rate FiO2 11/20/17 11:59 91 High Flow Nasal Cannula 30.00 70 11/20/17 11:10 20 11/20/17 10:15 93 High Flow Nasal Cannula 60.00 30 11/20/17 10:00 98 High Flow Nasal Cannula 30.00 80 11/20/17 10:00 80 11/20/17 09:18 91 High Flow Nasal Cannula 30.00 100 11/20/17 09:03 89 High Flow Nasal Cannula 25.00 70 11/20/17 08:00 101 11/20/17 07:00 90 Non-Rebreather 30.00 100 11/20/17 06:00 80 11/20/17 04:00 81 11/20/17 04:00 98.6 81 27 125/63 (83) 94 11/20/17 02:00 85 11/20/17 00:00 101 11/20/17 00:00 98.5 80 28 151/65 (93) 87 11/19/17 22:00 101 11/19/17 20:31 90 High Flow Nasal Cannula 25.00 54 11/19/17 20:00 98.5 98 37 115/72 (86) 90 11/19/17 20:00 101 11/19/17 19:00 89 Nasal Cannula 25.00 55 Humidified I/O 11/19/17 11/19/17 11/19/17 11/20/17 11/20/17 11/20/17 07:00 15:00 23:00 07:00 15:00 23:00 Intake Total 1300 ml 100 ml 480 ml Output Total 1500 ml 1500 ml 1500 ml Balance -1500 ml 1300 ml -1400 ml -1020 ml Intake Oral 480 ml IV Total 1300 ml 100 ml Output Urine Total 1500 ml 1500 ml 1500 ml # Bowel Movements 2 1 1 Result Diagram: 11/20/17 0250 11/20/17 0250 Objective Remarks VS-S Abd: continue wet to dry dressing and binder I&Os- good diuresis Assessment and Plan Assessment and Plan Stable with ARDS Overall prognosis seems poor Plan: continue present support level. Continue wound care Oc Durán MD November 20, 2017 18:43
--- NOTE | 2017-11-20 21:44 | MB ---
cc: Zach Mas MD DATE: 11/20/2017 REQUESTED BY: Dr. Tesfaye Zavala REASON FOR CONSULTATION: Respiratory insufficiency and ARDS. HISTORY OF PRESENT ILLNESS: Mr. Portillo is a 52-year-old male with a history of Crohn's disease. He underwent terminal ileum, ascending colon resection. The patient was admitted on 11/09 again with not feeling well and he has abdominal pain. He was found to be septic. The patient has been admitted in the hospital. He was treated with antibiotic. White cell count has been increasing. His CT scan of the chest is progressively getting worse. He had a repeat CT scan of the chest done today, which shows he has persistent airspace disease in the right upper lobe, coarse interstitial changes in both lungs, with bilateral pleural effusion. Parenchymal changes are moving towards honeycomb and chronic fibrotic pattern. LABORATORY DATA: His CBC showed a WBC count of 49,000, hemoglobin of 9.8, hematocrit 30.3, MCV 84, platelet count 199. His sodium 132, potassium 2.7, chloride 107, CO2 29, BUN 13, creatinine 0.61. PAST MEDICAL HISTORY: Significant for history of Crohn's disease, status post exploratory laparotomy and resection, sepsis, ARDS. MEDICATIONS: He is currently taking acetazolamide 500 mg a day, Diflucan IV, Lasix 40 mg q. 12 hours, Xanax 0.5 mg p.r.n., albuterol nebulizer treatment, nystatin local swish and swallow, morphine for pain, famotidine 20 mg q. 12 hours, potassium supplement. ALLERGIES: HE IS ALLERGIC TO TETANUS TOXOID. SOCIAL HISTORY: He is , has a history of smoking 1 pack a day, which he recently quit. He used to drink heavily. He also has a history of cirrhosis and TIPS. PHYSICAL EXAMINATION: GENERAL: Thin built male, mild short of breath. VITAL SIGNS: He is on high-flow oxygen requiring 70% oxygen, his blood pressure 125/63, heart rate 81, respirations 18, temperature 98.6. HEENT: Pupils are equal and reactive. NECK: Supple ,JVP not raised. CHEST: He has inspiratory rales and scattered rales, few rhonchi. CARDIOVASCULAR: S1, S2 normal. ABDOMEN: Soft, nondistended. He has abdominal wound dressed. EXTREMITIES: No edema. IMPRESSION: 1. Bilateral lung infiltrate with interstitial pattern and appearing fibrotic changes, possibly has acute respiratory distress syndrome and also possible underlying interstitial lung disease. 2. History of nicotine use. 3. Cirrhosis of the liver, status post transjugular intrahepatic portosystemic shunt procedure. 4. Crohn's disease. PLAN: We will supplement his oxygen with high-flow oxygen and keep the saturation greater than 90%. He is on Diflucan. I will add low-dose steroid and see the response with this. He has a lot of interstitial process and possible ARDS along with inflammatory process in the lung. I will get his blood gas, too. We will replace his potassium. Monitor electrolyte. Further treatment per the course in the hospital. Thank you, Dr. Zavala, for this consult. MD VIDA Corado/JENNIFER/lefty , 07:05 PM , 09:01 PM SURESH
[2017-11-20] MEDS: methylPREDNISolone SOD SUCC 40 MG/1 ML VIAL IV PUSH SCH (22:00)
[2017-11-20] MEDS: ALPRAZolam 0.5 MG TAB PO PRN (22:28)
[2017-11-20] MEDS: MORPHINE SULFATE 4 MG/ML INJ IV PUSH PRN (23:53)
[2017-11-21] VITALS (14 sets, daily range): BP systolic 97–120; BP diastolic 52–75; PULSE 72–106; RESP 20–30; TEMP 98.1–98.8; O2SAT 90–100
[2017-11-21] MEDS: ALPRAZolam 0.5 MG TAB PO PRN ×2 (00:45→12:05)
[2017-11-21] MEDS: RESP: ALBUTEROL 2.5 MG/3 ML NEB (PRN) NEB ×4 (01:14→21:44)
[2017-11-21 05:09] LABS: HEMATOCRIT 26.9 % (39.0-51.0); MEAN CELL VOLUME 84.1 FL (80.0-100.0); MEAN CORPUSCULAR HEMOGLOBIN 28.2 PG (27.0-34.0); MEAN CORPUSCULAR HGB CONC 33.5 % (32.0-36.0); MEAN PLATELET VOLUME 9.1 FL (7.0-11.0); PLATELET COUNT 159 TH/MM3 (150-450); RED CELL DISTRIBUTION WIDTH 16.1 % (11.6-17.2); WHITE BLOOD COUNT 25.8 TH/MM3 (4.0-11.0)
[2017-11-21 05:35] LABS: BICARBONATE 33.4 MEQ/L (21.0-32.0); CALCIUM 7.7 MG/DL (8.5-10.1); CREATININE 0.63 MG/DL (0.60-1.30)
[2017-11-21] MEDS: methylPREDNISolone SOD SUCC 40 MG/1 ML VIAL IV PUSH SCH ×3 (06:16→21:09)
[2017-11-21] MEDS: SODIUM CHLORIDE 0.9% FLUSH 10 ML FLUSH IV FLUSH SCH ×2 (08:13→21:00)
[2017-11-21] MEDS: FUROSEMIDE 40 MG/4 ML VIAL IV SCH ×2 (08:13→21:09)
[2017-11-21] MEDS: NYSTATIN SUSP 500,000 U/5 ML CUP SWISH-SWAL SCH ×4 (08:14→21:09)
[2017-11-21] MEDS: FAMOTIDINE 20 MG TAB PO SCH ×2 (08:14→21:09)
[2017-11-21] MEDS ORDERED: POTASSIUM CHLORIDE 25 MEQ EFFERVESCENT TAB PO ONE (08:45)
[2017-11-21] MEDS: POTASSIUM CHLORIDE 25 MEQ EFFERVESCENT TAB PO SCH (09:47)
[2017-11-21] MEDS: MAGNESIUM SULFATE 1 GM PREMIX 100 ML IV SCH ×2 (09:47→12:41)
--- NOTE | 2017-11-21 10:14 | HHI.PR ---
Subjective Remarks Nursing reports that the patient had low potassium this morning. Has not had to push any IV pain medication since her shift this morning. Patient himself says that the potassium intravenously rivera really bad and does not want to do that again. Is asking when he can be discharged, says that he has family arranging stuff for him at home. Objective Vital Signs Date Time Temp Pulse Resp B/P (MAP) Pulse Ox O2 Delivery O2 Flow Rate FiO2 11/21/17 07:26 98 High Flow Nasal Cannula 70 11/21/17 07:00 97 Nasal Cannula 70 11/21/17 06:00 82 11/21/17 04:00 98.6 88 30 117/59 (78) 97 11/21/17 04:00 88 11/21/17 02:00 82 11/21/17 00:00 98.8 106 26 120/57 (78) 92 11/21/17 00:00 106 11/20/17 22:00 110 11/20/17 20:00 114 11/20/17 20:00 98.5 108 32 90/57 (68) 100 11/20/17 19:47 92 High Flow Nasal Cannula 30.00 70 11/20/17 19:00 96 Nasal Cannula 70 11/20/17 11:59 91 High Flow Nasal Cannula 30.00 70 11/20/17 11:10 20 11/20/17 10:15 93 High Flow Nasal Cannula 60.00 30 I/O 11/20/17 11/20/17 11/20/17 11/21/17 11/21/17 11/21/17 07:00 15:00 23:00 07:00 15:00 23:00 Intake Total 480 ml 1113 ml 400 ml Output Total 1500 ml 800 ml 1790 ml Balance -1020 ml 313 ml -1390 ml Intake Oral 480 ml 400 ml IV Total 1113 ml Output Urine Total 1500 ml 800 ml 1790 ml # Bowel Movements 1 0 Result Diagram: 11/21/17 0340 11/21/17 034 Objective Remarks Frail-appearing middle-aged white male who appears older than his stated age Postop dressing over central abdomen Has nasal cannula in nose, sitting up in bed, no conversive dyspnea, unlabored breathing A/P Assessment and Plan acute hypoxic respiratory failure -Pulmonology following, -ARDS -continue diuretics; echo showing EF of 50% 1 month ago -IV Diflucan for fungal coverage given extensive steroid course -solumedrol - taper course Status post colonic resection with wound dehiscence -Dressing changes per colorectal surgery -P.o. 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
[2017-11-21] MEDS: ACETAMINOPHEN/HYDROcodone 325 MG/7.5 MG TAB PO PRN ×3 (11:04→21:10)
[2017-11-21] MEDS: FLUCONAZOLE 200 MG PREMIX BAG 100 ML IV SCH (12:40)
--- NOTE | 2017-11-21 14:56 | HHI.PR ---
Subjective Remarks Less SOB today on N/C. Sitting on toilet Objective Vital Signs Date Time Temp Pulse Resp B/P (MAP) Pulse Ox O2 Delivery O2 Flow Rate FiO2 11/21/17 12:05 16 11/21/17 12:00 98.6 92 21 97/55 (69) 99 11/21/17 12:00 92 11/21/17 10:00 90 11/21/17 08:00 98.6 72 20 97/52 (67) 100 11/21/17 08:00 72 11/21/17 07:26 98 High Flow Nasal Cannula 70 11/21/17 07:00 97 Nasal Cannula 70 11/21/17 06:00 82 11/21/17 04:00 98.6 88 30 117/59 (78) 97 11/21/17 04:00 88 11/21/17 02:00 82 11/21/17 00:00 98.8 106 26 120/57 (78) 92 11/21/17 00:00 106 11/20/17 22:00 110 11/20/17 20:00 114 11/20/17 20:00 98.5 108 32 90/57 (68) 100 11/20/17 19:47 92 High Flow Nasal Cannula 30.00 70 11/20/17 19:00 96 Nasal Cannula 70 I/O 11/20/17 11/20/17 11/20/17 11/21/17 11/21/17 11/21/17 07:00 15:00 23:00 07:00 15:00 23:00 Intake Total 480 ml 1113 ml 400 ml Output Total 1500 ml 800 ml 1790 ml Balance -1020 ml 313 ml -1390 ml Intake Oral 480 ml 400 ml IV Total 1113 ml Output Urine Total 1500 ml 800 ml 1790 ml # Bowel Movements 1 0 Result Diagram: 11/21/17 0340 11/21/17 0340 Objective Remarks VS-S Abd: continue wet to dry dressing and binder I&Os- good diuresis Assessment and Plan Assessment and Plan Stable with ARDS Overall prognosis seems poor Plan: continue present support level. Continue wound care TID. Continue O2 support and diuresis Oc Tierney MD November 21, 2017 14:56
--- NOTE | 2017-11-21 19:13 | HHI.PR ---
Subjective Remarks 52 YOWM with Crohn's dis, Cirrohosis, s/p TIPS, abd surgery,ARDS Breathing better Has Abd discomfort Weaned to 50% High flow Objective Vital Signs Vital Signs Date Time Temp Pulse Resp B/P (MAP) Pulse Ox O2 Delivery O2 Flow Rate FiO2 11/21/17 18:23 20 11/21/17 18:00 100 11/21/17 16:00 90 11/21/17 16:00 98.6 100 21 116/75 (89) 94 11/21/17 14:00 77 11/21/17 12:00 98.6 92 21 97/55 (69) 99 11/21/17 12:00 92 11/21/17 10:00 90 11/21/17 08:00 98.6 72 20 97/52 (67) 100 11/21/17 08:00 72 11/21/17 07:26 98 High Flow Nasal Cannula 70 11/21/17 07:00 97 Nasal Cannula 70 11/21/17 06:00 82 11/21/17 04:00 98.6 88 30 117/59 (78) 97 11/21/17 04:00 88 11/21/17 02:00 82 11/21/17 00:00 98.8 106 26 120/57 (78) 92 11/21/17 00:00 106 11/20/17 22:00 110 11/20/17 20:00 114 11/20/17 20:00 98.5 108 32 90/57 (68) 100 11/20/17 19:47 92 High Flow Nasal Cannula 30.00 70 I/O 11/20/17 11/20/17 11/20/17 11/21/17 11/21/17 11/21/17 07:00 15:00 23:00 07:00 15:00 23:00 Intake Total 480 ml 1113 ml 400 ml 300 ml 900 ml Output Total 1500 ml 800 ml 1790 ml 1300 ml Balance -1020 ml 313 ml -1390 ml 300 ml -400 ml Intake Oral 480 ml 400 ml 900 ml IV Total 1113 ml 300 ml Output Urine Total 1500 ml 800 ml 1790 ml 1300 ml # Bowel Movements 1 0 1 Result Diagram: 11/21/17 0340 11/21/17 0340 Objective Remarks GENERAL: MBMNWM, mild sob SKIN: Warm and dry. HEAD: Normocephalic. EYES: No scleral icterus. No injection or drainage. NECK: Supple, trachea midline. No JVD or lymphadenopathy. CARDIOVASCULAR: Regular rate and rhythm without murmurs, gallops, or rubs. RESPIRATORY: Breath sounds equal bilaterally. No accessory muscle use. GASTROINTESTINAL: Abdomen soft, non-tender, nondistended. Abd wound dressed MUSCULOSKELETAL: No cyanosis, or edema. BACK: Nontender without obvious deformity. No CVA tenderness. A/P Assessment and Plan IMPRESSION: 1. Bilateral lung infiltrate with interstitial pattern and appearing fibrotic changes, possibly has acute respiratory distress syndrome and also possible underlying interstitial lung disease. 2. History of nicotine use. 3. Cirrhosis of the liver, status post transjugular intrahepatic portosystemic shunt procedure. 4. Crohn's disease. PLAN Supplement 02 with high flow Keep sat 90-94% IV Solumedrol Cont Abx Replace K+ Zach Mas MD November 21, 2017 19:13
[2017-11-22] VITALS (13 sets, daily range): BP systolic 95–112; BP diastolic 50–57; PULSE 68–84; RESP 26–36; TEMP 97.4–98.4; O2SAT 92–97
[2017-11-22] MEDS: CHLORHEXIDINE GLUCONATE 2 % 1 PACK (2 CLOTHS) TOP SCH (02:35)
[2017-11-22] MEDS: DEXTROSE 5% IN WATE 1000ML INJ 1,000 ML IV SCH (06:00)
[2017-11-22 06:07] LABS: HEMOGLOBIN 8.1 GM/DL (13.0-17.0); MEAN CELL VOLUME 84.5 FL (80.0-100.0); MEAN CORPUSCULAR HEMOGLOBIN 27.3 PG (27.0-34.0); MEAN CORPUSCULAR HGB CONC 32.3 % (32.0-36.0); MEAN PLATELET VOLUME 9.1 FL (7.0-11.0); PLATELET COUNT 160 TH/MM3 (150-450); RED BLOOD COUNT 2.96 MIL/MM3 (4.50-5.90); RED CELL DISTRIBUTION WIDTH 16.2 % (11.6-17.2); WHITE BLOOD COUNT 33.5 TH/MM3 (4.0-11.0)
[2017-11-22] MEDS: methylPREDNISolone SOD SUCC 40 MG/1 ML VIAL IV PUSH SCH ×3 (06:07→21:27)
[2017-11-22 06:34] LABS: CALCIUM 8.2 MG/DL (8.5-10.1); CREATININE 0.49 MG/DL (0.60-1.30); MAGNESIUM 2.2 MG/DL (1.5-2.5)
[2017-11-22] MEDS ORDERED: POTASSIUM CHLOR 20 MEQ PREMIX 100 ML IV ONE (07:00)
[2017-11-22] MEDS ORDERED: POTASSIUM CHLORIDE 25 MEQ EFFERVESCENT TAB PO ONE ×2 (07:00→08:30)
[2017-11-22] MEDS: RESP: ALBUTEROL 2.5 MG/3 ML NEB (PRN) NEB (08:01)
[2017-11-22] MEDS: ALPRAZolam 0.5 MG TAB PO PRN (08:02)
[2017-11-22] MEDS: NYSTATIN SUSP 500,000 U/5 ML CUP SWISH-SWAL SCH ×4 (08:02→21:27)
[2017-11-22] MEDS: FAMOTIDINE 20 MG TAB PO SCH ×2 (08:03→21:27)
[2017-11-22] MEDS: FUROSEMIDE 40 MG/4 ML VIAL IV SCH ×2 (08:04→21:26)
[2017-11-22] MEDS: SODIUM CHLORIDE 0.9% FLUSH 10 ML FLUSH IV FLUSH SCH ×2 (08:04→21:00)
[2017-11-22] MEDS: POTASSIUM CHLORIDE 25 MEQ EFFERVESCENT TAB PO SCH (08:05)
[2017-11-22] MEDS: ACETAMINOPHEN/HYDROcodone 325 MG/7.5 MG TAB PO PRN ×4 (08:24→18:43)
--- NOTE | 2017-11-22 08:43 | HHI.PR ---
Subjective Remarks Less SOB today on N/C 30% FIO2 Objective Vital Signs Date Time Temp Pulse Resp B/P (MAP) Pulse Ox O2 Delivery O2 Flow Rate FiO2 11/22/17 06:00 84 11/22/17 04:00 72 11/22/17 04:00 97.4 72 36 95/50 (65) 95 11/22/17 02:00 72 11/22/17 00:00 78 11/22/17 00:00 98.4 78 30 100/56 (71) 94 11/21/17 23:36 94 Nasal Cannula 20.00 40 11/21/17 22:00 90 11/21/17 20:49 90 High Flow Nasal Cannula 20.00 60 11/21/17 20:00 98.1 96 28 118/55 (76) 97 11/21/17 20:00 96 11/21/17 19:00 96 Nasal Cannula 20.00 60 11/21/17 18:23 20 11/21/17 18:00 100 11/21/17 16:00 90 11/21/17 16:00 98.6 100 21 116/75 (89) 94 11/21/17 14:00 77 11/21/17 12:00 98.6 92 21 97/55 (69) 99 11/21/17 12:00 92 11/21/17 10:00 90 I/O 11/21/17 11/21/17 11/21/17 11/22/17 11/22/17 11/22/17 07:00 15:00 23:00 07:00 15:00 23:00 Intake Total 400 ml 300 ml 900 ml 200 ml Output Total 1790 ml 1300 ml 700 ml Balance -1390 ml 300 ml -400 ml -500 ml Intake Oral 400 ml 900 ml 200 ml IV Total 300 ml Output Urine Total 1790 ml 1300 ml 700 ml # Bowel Movements 0 1 Result Diagram: 11/22/1751811/22/17518 Objective Remarks VS-S Abd: continue wet to dry dressing and binder. Wound clean.Moist I&Os- good diuresis Assessment and Plan Assessment and Plan Stable with ARDS Wound open. SB moist with vaseline guaze and add moist 4x4s. Overall prognosis seems poor Plan: continue present support level. Continue wound care TID. Continue O2 support Continue diuresis Oc Tierney MD November 22, 2017 08:43
[2017-11-22] MEDS: FLUCONAZOLE 200 MG PREMIX BAG 100 ML IV SCH (11:18)
--- NOTE | 2017-11-22 17:10 | HHI.PR ---
Subjective Remarks 11/09: 52-year-old male with a medical history significant for Crohn's disease who underwent E lap with terminal ileum/ascending colon resection by Dr. Lane on 10/19/17. Patient was subsequently discharged on 10/31. He presented back to the ER on 11/04 with abdominal pain underwent labs and CAT scan and was subsequently discharged from the ER and followed up with Dr. Lane. He did develop some wound dehiscence and the upper part of his incision site and some ha were removed by Dr. Lane. Patient presented back to the ER on 11/09 as he was not feeling well with generalized weakness and abdominal pain and was noted to be hypotensive in the ER with a leukocytosis. He received 2 L normal saline bolus and was given empiric Zosyn for antibiotic coverage. Dr. Pryor spoke with Dr. Lane. Patient was accepted for admission by critical care medicine service and is being admitted to the ICU. When I evaluated the patient he was laying in the ER stretcher with systolic blood pressure in the 90s having received 2 L normal saline bolus. He was complaining of pain all over at the time. He denied any shortness of breath nausea or vomiting currently. He denied any melena or rectal bleeding. Denies any fever or chills. He did have slight dehiscence of his upper abdominal incision site with foul smell but minimal discharge. History was obtained by reviewing records and discussion with the ER physician. Patient is not a very good historian. He also reportedly has a history of cirrhosis and has had a TIPS procedure in June 2017. He has been on diuretics at home. 11/10: Remains hypotensive last night despite fluid boluses hence was started on Levophed for pressor support. Complains of abdominal pain this morning. Denies any shortness of breath. Evaluated by ID and awaiting CT abdomen pelvis this morning. On Levophed 9 mics per minute. 11/11: Patient had right-sided anterior chest tube placed yesterday for pneumothorax with resolution of pneumothorax. Right upper lobe collapse seems to have opened up on x-ray today. Patient appears to be breathing comfortably but remains confused. Remains on Levophed. 11/12: Resting comfortably in bed on nasal cannula. Off pressors. Dislodged pigtail catheter overnight however chest x-ray this morning does not show any pneumothorax. 11/13: Breathing comfortably with supplemental oxygen. Acceptably strong cough. White count remains elevated at 28,000. No specific complaints. Remains well hydrated. 11/14: Clearly more distress from yesterday. Increased FiO2 requirements. WBC 40 ,000. Weight is up a lot but little evidence of peripheral edema. Lung function not improving with aggressive diuresis. 11/15: somewhat improved from yesterday. off norepinephrine. wbc downtrended slightly. wound culture growing hira, and given patient's chronic immunosuppressed course, fungal etiologies would be in the differential. net - 900cc/24h. cr stable. remains on NRB and high fio2 requirements, although suspect more ARDS than fluid overload as a cause for his hypoxemia. ROS otherwise negative and subjectively patient feels better today compared with yesterday. abdominal pain mild and persistent. 11/16: very slow improvements. severe ARDS continues and remains on NRB, but patient subjectively feels better. cxr this AM with persistence of bilateral diffuse airspace disease. net -1L/24h. ROS otherwise negative. afebrile now s/p full course zosyn. 11/17: continues to subjectively feel better. slower to desaturate with activity. still hypoxic requiring high fio2. afebrile. wbc slowly downtrending. ROS otherwise negative. 11/18: Continues to require a nonrebreathing mask and radiographic appearance consistent with resolving ARDS. 11/19: We will attempt to transition to a high flow nasal cannula to facilitate weaning FiO2. A contraction alkalosis is developing which has expedited his potassium wasting. Will attempt to reverse with Diamox. 11/20: clinically stable. alternating between high flow NC and NRB. wbc uptrending, but afebrile. 15 Nursing reports that the patient had low potassium this morning. Has not had to push any IV pain medication since her shift this morning. Patient himself says that the potassium intravenously rivera really bad and does not want to do that again. Is asking when he can be discharged, says that he has family arranging stuff for him at home. 5-16 PATIENT IS ON LESS OXYGEN ONLY 10 LITERS OF HIGH FLOW NOW DW RN AND PT NEEDS PT AND OT KEEPS TAKING OXYGEN OFF SATS IN THE 80S WHEN OFF NO NEW COMPLAINTS Objective Vitals Vital Signs Date Time Temp Pulse Resp B/P (MAP) Pulse Ox O2 Delivery O2 Flow Rate FiO2 11/22/17 14:00 74 11/22/17 12:00 76 11/22/17 10:00 74 11/22/17 08:00 76 11/22/17 08:00 98.0 78 32 106/55 (72) 96 11/22/17 07:00 94 Nasal Cannula 20.00 40 11/22/17 06:00 84 11/22/17 04:00 72 11/22/17 04:00 97.4 72 36 95/50 (65) 95 11/22/17 02:00 72 11/22/17 00:00 78 11/22/17 00:00 98.4 78 30 100/56 (71) 94 11/21/17 23:36 94 Nasal Cannula 20.00 40 11/21/17 22:00 90 11/21/17 20:49 90 High Flow Nasal Cannula 20.00 60 11/21/17 20:00 98.1 96 28 118/55 (76) 97 11/21/17 20:00 96 11/21/17 19:00 96 Nasal Cannula 20.00 60 11/21/17 18:23 20 11/21/17 18:00 100 I/O 11/21/17 11/21/17 11/21/17 11/22/17 11/22/17 11/22/17 07:00 15:00 23:00 07:00 15:00 23:00 Intake Total 400 ml 300 ml 900 ml 200 ml Output Total 1790 ml 1300 ml 700 ml Balance -1390 ml 300 ml -400 ml -500 ml Intake Oral 400 ml 900 ml 200 ml IV Total 300 ml Output Urine Total 1790 ml 1300 ml 700 ml # Bowel Movements 0 1 Result Diagram: 11/22/17 0519 11/22/17 05 Other Results Laboratory Tests Test 11/20/17 02:50 11/20/17 12:06 11/20/17 17:40 11/20/17 19:12 White Blood Count 49.0 TH/MM3 Red Blood Count 3.60 MIL/MM3 Hemoglobin 9.8 GM/DL Hematocrit 30.3 % Mean Corpuscular Volume 84.3 FL Mean Corpuscular Hemoglobin 27.3 PG Mean Corpuscular Hemoglobin Concent 32.4 % Red Cell Distribution Width 16.9 % Platelet Count 199 TH/MM3 Mean Platelet Volume 8.9 FL Blood Urea Nitrogen 13 MG/DL Creatinine 0.61 MG/DL Random Glucose 95 MG/DL Calcium Level 7.7 MG/DL Sodium Level 145 MEQ/L Potassium Level 2.7 MEQ/L 3.3 MEQ/L Chloride Level 107 MEQ/L Carbon Dioxide Level 29.1 MEQ/L Anion Gap 9 MEQ/L Estimat Glomerular Filtration Rate 139 ML/MIN Procalcitonin 0.19 ng/mL Blood Gas Puncture Site RT RADIAL Blood Gas Patient Temperature 98.6 Blood Gas HCO3 29 mmol/L Blood Gas Base Excess 6.0 mmol/L Blood Gas Oxygen Saturation 92 % Arterial Blood pH 7.50 Arterial Blood Partial Pressure CO2 39 mmHg Arterial Blood Partial Pressure O2 71 mmHg Arterial Blood Oxygen Content 12.6 Vol % Arterial Blood Carboxyhemoglobin 1.9 % Arterial Blood Methemoglobin 1.0 % Blood Gas Hemoglobin 9.7 G/DL Oxygen Delivery Device HIGH FLOW NC Blood Gas Liter Flow 30 L/M Blood Gas Inspired Oxygen 70 % Test 11/21/17 03:40 11/22/17 05:19 White Blood Count 25.8 TH/MM3 33.5 TH/MM3 Red Blood Count 3.20 MIL/MM3 2.96 MIL/MM3 Hemoglobin 9.0 GM/DL 8.1 GM/DL Hematocrit 26.9 % 25.0 % Mean Corpuscular Volume 84.1 FL 84.5 FL Mean Corpuscular Hemoglobin 28.2 PG 27.3 PG Mean Corpuscular Hemoglobin Concent 33.5 % 32.3 % Red Cell Distribution Width 16.1 % 16.2 % Platelet Count 159 TH/MM3 160 TH/MM3 Mean Platelet Volume 9.1 FL 9.1 FL Blood Urea Nitrogen 15 MG/DL 17 MG/DL Creatinine 0.63 MG/DL 0.49 MG/DL Random Glucose 187 MG/DL 156 MG/DL Calcium Level 7.7 MG/DL 8.2 MG/DL Sodium Level 142 MEQ/L 143 MEQ/L Potassium Level 3.1 MEQ/L 2.4 MEQ/L Chloride Level 102 MEQ/L 106 MEQ/L Carbon Dioxide Level 33.4 MEQ/L 28.0 MEQ/L Anion Gap 7 MEQ/L 9 MEQ/L Estimat Glomerular Filtration Rate 134 ML/MIN 179 ML/MIN Magnesium Level 1.3 MG/DL 2.2 MG/DL Imaging Last Impressions Chest X-Ray 11/20/17 0400 Signed Impressions: Service Date/Time: Monday, November 20, 2017 05:02 - CONCLUSION: 1. Diffuse bilateral airspace disease similar to November 16. Small effusions. Dung Ellsworth MD Chest CT 11/20/17 0000 Signed Impressions: Service Date/Time: Monday, November 20, 2017 10:54 - CONCLUSION: Increasing coarse interstitial changes in both lungs with small bilateral pleural effusions. Interstitial pattern in the base is moving towards it honeycomb pattern. Hernando Rodrigez MD FACR Abdomen Ultrasound 11/11/17 Signed Impressions: Service Date/Time: Saturday, November 11, 2017 14:19 - CONCLUSION: Trace ascites in the abdomen. Keegan Almaraz MD Abdomen/Pelvis CT 11/09/17 Signed Impressions: Service Date/Time: Friday, November 10, 2017 11:22 - CONCLUSION: Increasing edema in the cecum and terminal ileum of uncertain etiology. Increasing stool in the sigmoid colon Enlarging right inguinal hernia Slight increase in amount of ascites. Hernando Rodrigez MD FACR Objective Remarks GENERAL: Awake and alert oriented 1-2 talkative-- somewhat cooperative --not wearing his oxygen correctly-- very thin frail appearing SKIN: Warm and dry. HEAD: Atraumatic. Normocephalic. EYES: Pupils equal and round. No scleral icterus. No injection or drainage. ENT: No nasal bleeding or discharge. Mucous membranes pink and moist. NECK: Trachea midline. No JVD. CARDIOVASCULAR: Regular rate and rhythm. S1-S2 no S3 or S4 RESPIRATORY: No accessory muscle use. Clear to auscultation. Breath sounds equal bilaterally. Decreased breath sounds bilaterally GASTROINTESTINAL: Abdomen soft, non-tender, nondistended. Hepatic and splenic margins not palpable. Abdomen is dressed MUSCULOSKELETAL: Extremities without clubbing, cyanosis, or edema. No obvious deformities. NEUROLOGICAL: Awake and alert. No obvious cranial nerve deficits. Motor grossly within normal limits. 4 out of 5 muscle strength in the arms and legs. Normal speech. PSYCHIATRIC: INAppropriate mood and affect; insight and judgment ABnormal. Medications and IVs Current Medications Piperacillin Sod/ Tazobactam Sod 100 ml @ 200 mls/hr ONCE STAT IV Last administered on 11/09/17at 12:45; Start 11/09/17 at 12:25; Stop 11/09/17 at 12:54; Status DC Vancomycin HCl 1000 mg/Sodium Chloride 250 ml @ 250 mls/hr ONCE STAT IV Last administered on 11/09/17at 13:31; Start 11/09/17 at 12:25; Stop 11/09/17 at 13:24; Status DC Sodium Chloride 1,000 ml @ 1,000 mls/hr Q1H ONCE IV Last administered on at 12:38; Start 11/09/17 at 12:25; Stop 11/09/17 at 13:24; Status DC Sodium Chloride 800 ml @ 1,000 mls/hr Q48M ONCE IV Last administered on at 12:38; Start 11/09/17 at 12:25; Stop 11/09/17 at 13:12; Status DC Potassium Chloride 100 ml @ 100 mls/hr Q1H IV Last administered on 11/09/17at 18 :35; Start 11/09/17 at 14:00; Stop 11/09/17 at 16:59; Status DC Potassium Chloride (KCl) 40 meq ONCE ONCE PO Last administered on 11/09/17at 14: 19; Start 11/09/17 at 14:00; Stop 11/09/17 at 14:10; Status DC Sodium Chloride 1,000 ml @ 999 mls/hr BOLUS ONCE IV Last administered on at 14:08; Start 11/09/17 at 14:15; Stop 11/09/17 at 15:15; Status DC Sodium Chloride 1,000 ml @ 150 mls/hr Q6H40M IV Last administered on 11/09/17at 15:21; Start 11/09/17 at 14:36; Stop 11/09/17 at 17:24; Status DC Sodium Chloride (NS Flush) 2 ml UNSCH PRN IV FLUSH FLUSH AFTER USING IV ACCESS ; Start 11/09/17 at 14:45 Sodium Chloride (NS Flush) 2 ml BID IV FLUSH Last administered on 11/22/17at 08: 04; Start 11/09/17 at 21:00 Famotidine (Pepcid) 20 mg Q12HR PO Last administered on 11/22/17at 08:03; Start 11/09/17 at 21:00 Albuterol/ Ipratropium (Duoneb Neb) 1 ampule Q4HR NEB PRN NEB WHEEZING; Start 11/09/17 at 15:00; Stop 11/10/17 at 21:22; Status DC Enoxaparin Sodium (Lovenox Inj) 40 mg Q24H SQ Last administered on 11/10/17at 16: 51; Start 11/09/17 at 15:00; Stop 11/10/17 at 17:22; Status DC Vancomycin HCl 1000 mg/Sodium Chloride 250 ml @ 250 mls/hr Q18H IV Last administered on 11/14/17at 21:00; Start 11/10/17 at 08:00; Stop 11/14/17 at 23:45; Status DC Pharmacy Profile Note 0 ml @ 0 mls/hr UNSCH OTHER ; Start 11/09/17 at 15:00; Status Cancel Piperacillin Sod/ Tazobactam Sod 100 ml @ 200 mls/hr Q6H IV Last administered on 11/15/17at 20:06; Start 11/09/17 at 20:00; Stop 11/15/17 at 21:00; Status DC Miscellaneous Information [place] [place] [facility] 1 [id number] Last administered on 11/10/17at 20:47; Start 11/09/17 at 14:45 Chlorhexidine Gluconate (Chlorhexidine 2% Cloth) Taper DAILY@04 TOP Last administered on 11/12/17at 04:00; Start 11/10/17 at 04:00; Stop 11/06/18 at 03:59 Chlorhexidine Gluconate (Chlorhexidine 2% Cloth) 3 pack UNSCH PRN TOP HYGIENIC CARE; Start 11/09/17 at 14:45 Potassium Chloride 100 ml @ 50 mls/hr Q2H PRN IV For Potassium 2.8 - 3.2 mEq/ L Last administered on 11/15/17at 11:28; Start 11/09/17 at 17:30; Stop 11/21/17 at 08:33; Status DC Potassium Chloride 100 ml @ 50 mls/hr Q2H PRN IV For Potassium 2.8 - 3.2 mEq/ L Last administered on 11/20/17at 05:48; Start 11/09/17 at 17:30; Stop 11/21/17 at 08:33; Status DC Potassium Chloride 100 ml @ 25 mls/hr UNSCH PRN IV For Potassium 3.3 - 3.5 mEq /L; Start 11/09/17 at 17:30; Stop 11/21/17 at 08:33; Status DC Potassium Chloride 100 ml @ 50 mls/hr Q2H PRN IV For Potassium 3.3 - 3.5 mEq/ L Last administered on 11/20/17at 23:53; Start 11/09/17 at 17:30; Stop 11/21/17 at 08:33; Status DC Magnesium Sulfate 4 gm/Sodium Chloride 100 ml @ 50 mls/hr UNSCH PRN IV For Magnesium 0.9 - 1.1 mg/dL; Start 11/09/17 at 17:30; Stop 11/21/17 at 08:33; Status DC Magnesium Oxide (Mag-Ox) 800 mg UNSCH PRN PO For Magnesium 1.2 - 1.6 mg/dL; Start 11/09/17 at 17:30; Stop 11/09/17 at 17:41; Status DC Magnesium Sulfate 2 gm/Sodium Chloride 100 ml @ 50 mls/hr UNSCH PRN IV For Magnesium 1.2 - 1.6 mg/dL Last administered on 11/12/17at 08:07; Start 11/09/17 at 17:30; Stop 11/21/17 at 08:33; Status DC Potassium Phosphate (K-Phos) 2,000 mg Q4H PRN PO For Phosphorus < 2.5 mg/dL; Start 11/09/17 at 17:30; Stop 11/21/17 at 08:33; Status DC Sodium Phosphate 30 mmol/Sodium Chloride 250 ml @ 42 mls/hr UNSCH PRN IV For Phosphorus < 2.5 mg/dL; Start 11/09/17 at 17:30; Stop 11/21/17 at 08:33; Status DC Potassium Phosphate (K-Phos) 2,000 mg UNSCH PRN PO/TUBE SEE LABEL COMMENTS; Start 11/09/17 at 17:30; Stop 11/21/17 at 08:33; Status DC Potassium Phosphate 30 mmol/ Sodium Chloride 260 ml @ 42 mls/hr UNSCH PRN IV SEE LABEL COMMENTS; Start 11/09/17 at 17:30; Stop 11/21/17 at 08:33; Status DC Albumin Human 250 ml @ 250 mls/hr Q6HR IV Last administered on 11/10/17at 04:38 ; Start 11/09/17 at 18:00; Stop 11/10/17 at 09:00; Status DC Dextrose/Lactated Ringer's 1,000 ml @ 150 mls/hr Q6H40M IV Last administered on 11/10/17at 16:51; Start 11/09/17 at 17:30; Stop 11/10/17 at 19:11; Status DC Lactated Ringer's 1,000 ml @ 999 mls/hr BOLUS ONCE IV Last administered on 11/09/17at 18:14; Start 11/09/17 at 17:45; Stop 11/09/17 at 18:46; Status DC Vancomycin HCl 800 mg/Sodium Chloride 258 ml @ 250 mls/hr ONCE ONCE IV ; Start 11/09/17 at 18:13; Stop 11/09/17 at 19:14; Status Cancel Hydrocortisone Sodium Succinate (SoluCORTEF INJ) 50 mg Q6HR IV PUSH Last administered on 11/13/17at 17:01; Start 11/09/17 at 18:00; Stop 11/13/17 at 19:55; Status DC Phenylephrine HCl 40 mg/Dextrose 500 ml @ 30 mls/hr TITRATE PRN IV Blood Pressure Management Last administered on 11/09/17at 20:53; Start 11/09/17 at 20:45 ; Stop 11/10/17 at 03:05; Status DC Terbutaline Sulfate (Brethine Inj) 1 mg UNSCH PRN SQ FOR EXTRAVASATION PROTOCOL ; Start 11/09/17 at 20:45 Doxycycline Hyclate 100 mg/ Sodium Chloride 100 ml @ 100 mls/hr Q12H IV Last administered on 11/19/17at 23:20; Start 11/10/17 at 00:00; Stop 11/20/17 at 07:16 ; Status DC Metronidazole 100 ml @ 100 mls/hr Q8H IV Last administered on 11/17/17at 01:25 ; Start 11/10/17 at 01:00; Stop 11/17/17 at 07:21; Status DC Acetaminophen/ Hydrocodone Bitart (Aurora 7.5-325 Mg) 1 tab Q4H PRN PO PAIN 1- 5 Last administered on 11/22/17at 15:39; Start 11/09/17 at 23:45 Norepinephrine Bitartrate 250 ml @ 7.5 mls/hr TITRATE PRN IV Maintain MAP > 65 mmHg Last administered on 11/11/17at 02:26; Start 11/10/17 at 03:15; Stop at 10:12; Status DC Diatrizoate Meglum/ Diatrizoate Sod ( Gastroview Liq) 18 ml ONCE ONCE PO Last administered on 11/10/17at 09:12; Start 11/10/17 at 07:00; Stop 11/10/17 at 07: 01; Status DC Morphine Sulfate (Morphine Inj) 4 mg Q3H PRN IV PUSH pain scale 6-10 Last administered on 11/20/17at 23:53; Start 11/10/17 at 07:15; Stop 11/21/17 at 08:33 ; Status DC Midazolam HCl (Versed Inj) 5 mg STK-MED ONCE .ROUTE Last administered on at 09:12; Start 11/10/17 at 07:43; Stop 11/10/17 at 07:44; Status DC Lidocaine HCl (Xylocaine 2% Inj) 100 mg STK-MED ONCE .ROUTE ; Start 11/10/17 at 07:53; Stop 11/10/17 at 07:54; Status DC Lidocaine HCl (Xylocaine 2% Inj) 100 mg STK-MED ONCE .ROUTE ; Start 11/10/17 at 08:06; Stop 11/10/17 at 08:07; Status DC Pharmacy Profile Note 0 ml @ 0 mls/hr UNSCH OTHER ; Start 11/10/17 at 08:45; Status UNV Vancomycin HCl 850 mg/Sodium Chloride 258.5 ml @ 250 mls/hr Q12H IV ; Start 11/10/17 at 08:45; Status UNV Miscellaneous Information ([facility] [place] [facility] [place] SPECIFIC LAB TO BE DRAWN:VANCOMY... ONCE ONCE .XX Last administered on 11/11/17at 19:45; Start 11/11 at 19:45; Stop 11/11/17 at 19:46; Status DC Nystatin (Mycostatin Liq) 5 ml QID SWISH-SWAL Last administered on 11/22/17at 13:00; Start 11/10/17 at 13:00 Lidocaine/ Epinephrine (Xylocaine-Epi 1%-1:100,000 Inj) 10 ml ONCE ONCE INFIL ; Start 11/10/17 at 18:45; Stop 11/10/17 at 18:46; Status DC Midazolam HCl (Versed Inj) 2 mg ONCE ONCE IV PUSH Last administered on at 19:11; Start 11/10/17 at 18:45; Stop 11/10/17 at 18:46; Status DC Morphine Sulfate (Morphine Inj) 2 mg ONCE ONCE IV PUSH Last administered on 19:11; Start 11/10/17 at 18:45; Stop 11/10/17 at 18:46; Status DC Dextrose/Lactated Ringer's 1,000 ml @ 100 mls/hr Q10H IV Last administered on 11/14/17at 03:29; Start 11/10/17 at 19:00; Stop 11/14/17 at 10:22; Status DC Midazolam HCl (Versed Inj) 2 mg ONCE ONCE IV PUSH ; Start 11/10/17 at 19:45; Stop 11/10/17 at 19:46; Status DC Morphine Sulfate (Morphine Inj) 2 mg ONCE ONCE IV PUSH ; Start 11/10/17 at 19:45 ; Stop 11/10/17 at 19:46; Status DC Phytonadione 10 mg/Sodium Chloride 51 ml @ 102 mls/hr ONCE ONCE IV Last administered on 11/10/17at 20:47; Start 11/10/17 at 21:00; Stop 11/10/17 at 21:29; Status DC Albuterol/ Ipratropium (Duoneb Neb) 1 ampule Q6HR NEB NEB Last administered on 11/14/17at 19:53; Start 11/10/17 at 22:00; Stop 11/14/17 at 21:56; Status DC Sodium Chloride (Sodium Chloride 3% Neb) 2 ml Q6HR NEB NEB Last administered on 11/15/17at 16:19; Start 11/10/17 at 22:00; Stop 11/15/17 at 21:59; Status DC Albuterol Sulfate (Albuterol Neb) 2.5 mg Q2HR NEB PRN NEB Dyspnea Last administered on 11/22/17at 08:01; Start 11/10/17 at 21:30 Furosemide (Lasix Inj) 20 mg Q12HR IV PUSH Last administered on 11/13/17at 20:48 ; Start 11/11/17 at 11:15; Stop 11/14/17 at 09:36; Status DC Sodium Chloride 250 ml @ 15 mls/hr ONCE ONCE IV Last administered on at 12:27; Start 11/11/17 at 11:30; Stop 11/12/17 at 04:09; Status DC Magnesium Sulfate/ Dextrose 200 ml @ As Directed STK-MED ONCE .ROUTE ; Start at 08:03; Stop 11/12/17 at 08:04; Status DC Miscellaneous Information ([facility] [place] [facility] [place] SPECIFIC LAB TO BE . ONCE ONCE .XX Last administered on 11/14/17at 21:00; Start 11/14/17 at 19: 45; Stop 11/14/17 at 19:46; Status DC Hydrocortisone Sodium Succinate (SoluCORTEF INJ) 40 mg Q12H IV PUSH Last administered on 11/15/17at 05:01; Start 11/14/17 at 06:00; Stop 11/15/17 at 10:21; Status DC Alprazolam (Xanax) 0.5 mg Q8H PRN PO ANXIETY Last administered on 11/22/17at 08: 02; Start 11/13/17 at 20:00 Furosemide (Lasix Inj) 40 mg Q12HR IV Last administered on 11/21/17at 21:09; Start 11/14/17 at 10:00 Albuterol/ Ipratropium (Duoneb Neb) 1 ampule Q6HR NEB NEB Last administered on 11/18/17at 21:17; Start 11/14/17 at 23:00; Stop 11/18/17 at 22:59; Status DC Vancomycin HCl 1250 mg/Sodium Chloride 262.5 ml @ 250 mls/hr Q12H IV Last administered on 11/15/17at 06:00; Start 11/15/17 at 06:00; Stop 11/15/17 at 14:27; Status DC Miscellaneous Information ([facility] [place] [facility] [place] SPECIFIC LAB TO BE DRAWN:VANCO TROUGH DATE TO BE ONCE ONCE .XX ; Start 11/17/17 at 05:45; Stop 11/17/17 at 05:46; Status Cancel Dextrose 1,000 ml @ 25 mls/hr Q24H IV Last administered on 11/22/17at 06:00; Start 11/15/17 at 10:00 Fluconazole/ Sodium Chloride 200 ml @ 100 mls/hr ONCE ONCE IV Last administered on 11/15/17at 11:13; Start 11/15/17 at 10:00; Stop 11/15/17 at 11:59; Status DC Fluconazole/ Sodium Chloride 100 ml @ 100 mls/hr Q24H IV Last administered on 11/22/17at 11:18; Start 11/16/17 at 11:00 Hydrocortisone Sodium Succinate (SoluCORTEF INJ) 30 mg Taper Q12H IV PUSH Last administered on 11/16/17at 06:00; Start 11/15/17 at 18:00; Stop 11/16/17 at 07:17 ; Status DC Vancomycin HCl 1500 mg/Sodium Chloride 515 ml @ 250 mls/hr Q12H IV Last administered on 11/16/17at 06:00; Start 11/15/17 at 18:00; Stop 11/16/17 at 09:06 ; Status DC Potassium Chloride (KCl) 40 meq NOW ONCE PO Last administered on 11/15/17at 23: 00; Start 11/15/17 at 23:00; Stop 11/15/17 at 23:01; Status DC Potassium Chloride (KCl Powder) 40 meq Q2H PO Last administered on 11/16/17at 08 :43; Start 11/16/17 at 04:15; Stop 11/16/17 at 08:16; Status DC Hydrocortisone Sodium Succinate (SoluCORTEF INJ) 10 mg Taper Q12H IV PUSH Last administered on 11/19/17at 05:35; Start 11/16/17 at 18:00; Stop 11/19/17 at 17:59 ; Status DC Acetazolamide Sodium (Diamox Inj) 250 mg ONCE ONCE IV PUSH Last administered on 11/17/17at 07:54; Start 11/17/17 at 07:30; Stop 11/17/17 at 07:31; Status DC Acetazolamide Sodium (Diamox Inj) 500 mg DAILY IV PUSH Last administered on at 11:31; Start 11/19/17 at 11:15; Stop 11/21/17 at 06:05; Status DC Potassium Bicarb/ Potassium Chloride (K-Lyte Cl Eff) 50 meq ONCE ONCE PO Last administered on 11/20/17at 09:46; Start 11/20/17 at 07:30; Stop 11/20/17 at 07:31; Status DC Methylprednisolone Sodium Succinate (SoluMEDROL INJ) 40 mg Q8HR IV PUSH Last administered on 11/22/17at 14:00; Start 11/20/17 at 22:00 Acetazolamide Sodium (Diamox Inj) 500 mg Q8H IV PUSH Last administered on at 15:35; Start 11/21/17 at 09:00 Potassium Bicarb/ Potassium Chloride (K-Lyte Cl Eff) 25 meq ONCE ONCE PO Last administered on 11/21/17at 09:46; Start 11/21/17 at 08:45; Stop 11/21/17 at 08:46; Status DC Potassium Bicarb/ Potassium Chloride (K-Lyte Cl Eff) 25 meq DAILY PO Last administered on 11/22/17at 08:05; Start 11/21/17 at 09:00 Magnesium Sulfate/ Dextrose 100 ml @ 100 mls/hr Q1H IV Last administered on at 12:41; Start 11/21/17 at 09:30; Stop 11/21/17 at 11:29; Status DC Potassium Chloride 100 ml @ 50 mls/hr ONCE ONCE IV Last administered on at 08:04; Start 11/22/17 at 07:00; Stop 11/22/17 at 08:59; Status DC Potassium Bicarb/ Potassium Chloride (K-Lyte Cl Eff) 50 meq ONCE ONCE PO Last administered on 11/22/17at 08:04; Start 11/22/17 at 07:00; Stop 11/22/17 at 07:01; Status DC Potassium Bicarb/ Potassium Chloride (K-Lyte Cl Eff) 100 meq ONCE ONCE PO ; Start 11/22/17 at 08:30; Stop 11/22/17 at 08:31; Status DC A/P Problem List: (1) Tobacco use ICD Code: Z72.0 - Tobacco use Status: Acute (2) History of resection of terminal ileum ICD Code: Z98.890 - Other specified postprocedural states; Z90.49 - Acquired absence of other specified parts of digestive tract Status: Acute (3) Tobacco abuse ICD Code: Z72.0 - Tobacco use Status: Acute (4) Wound dehiscence ICD Code: T81.30XA - Disruption of wound, unspecified, initial encounter; Z90.49 - Acquired absence of other specified parts of digestive tract Status: Acute (5) Crohns disease ICD Code: K50.90 - Crohn's disease, unspecified, without complications Status: Acute (6) Hypokalemia ICD Code: E87.6 - Hypokalemia Status: Acute (7) FEN Status: Acute Assessment and Plan acute hypoxic respiratory failure -Pulmonology following, -ARDS -continue diuretics; echo showing EF of 50% 1 month ago -IV Diflucan for fungal coverage given extensive steroid course -solumedrol - taper course -Remains on high flow oxygen Status post colonic resection with wound dehiscence -Dressing changes per colorectal surgery -P.o. 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
--- NOTE | 2017-11-22 20:38 | HHI.PR ---
Subjective Remarks 52 YOWM with Crohn's dis, Cirrohosis, s/p TIPS, abd surgery,ARDS Breathing better Has Abd discomfort Weaned to 30% High flow Feels better Tolerates PO Objective Vital Signs Vital Signs Date Time Temp Pulse Resp B/P (MAP) Pulse Ox O2 Delivery O2 Flow Rate FiO2 11/22/17 19:00 95 Nasal Cannula 20.00 30 11/22/17 18:00 74 11/22/17 16:39 20 11/22/17 16:00 97.6 84 30 112/57 (75) 97 11/22/17 16:00 80 11/22/17 14:00 74 11/22/17 12:00 76 11/22/17 10:00 74 11/22/17 08:00 76 11/22/17 08:00 98.0 78 32 106/55 (72) 96 11/22/17 07:00 94 Nasal Cannula 20.00 40 11/22/17 06:00 84 11/22/17 04:00 72 11/22/17 04:00 97.4 72 36 95/50 (65) 95 11/22/17 02:00 72 11/22/17 00:00 78 11/22/17 00:00 98.4 78 30 100/56 (71) 94 11/21/17 23:36 94 Nasal Cannula 20.00 40 11/21/17 22:00 90 11/21/17 20:49 90 High Flow Nasal Cannula 20.00 60 I/O 11/21/17 11/21/17 11/21/17 11/22/17 11/22/17 11/22/17 07:00 15:00 23:00 07:00 15:00 23:00 Intake Total 400 ml 300 ml 900 ml 200 ml 480 ml Output Total 1790 ml 1300 ml 700 ml 950 ml Balance -1390 ml 300 ml -400 ml -500 ml -470 ml Intake Oral 400 ml 900 ml 200 ml 480 ml IV Total 300 ml Output Urine Total 1790 ml 1300 ml 700 ml 950 ml # Bowel Movements 0 1 0 Result Diagram: 11/22/1751811/22/17518 Objective Remarks GENERAL: MBMNWM, mild sob SKIN: Warm and dry. HEAD: Normocephalic. EYES: No scleral icterus. No injection or drainage. NECK: Supple, trachea midline. No JVD or lymphadenopathy. CARDIOVASCULAR: Regular rate and rhythm without murmurs, gallops, or rubs. RESPIRATORY: Breath sounds equal bilaterally. No accessory muscle use. GASTROINTESTINAL: Abdomen soft, non-tender, nondistended. Abd wound dressed MUSCULOSKELETAL: No cyanosis, or edema. BACK: Nontender without obvious deformity. No CVA tenderness. A/P Assessment and Plan IMPRESSION: 1. Bilateral lung infiltrate with interstitial pattern and appearing fibrotic changes, possibly has acute respiratory distress syndrome and also possible underlying interstitial lung disease. 2. History of nicotine use. 3. Cirrhosis of the liver, status post transjugular intrahepatic portosystemic shunt procedure. 4. Crohn's disease. PLAN Supplement 02 with high flow Keep sat 90-94% IV Solumedrol Cont Abx Replace K+ Will wean to NC in AM Zach Mas MD November 22, 2017 20:37
[2017-11-23] VITALS (16 sets, daily range): BP systolic 97–114; BP diastolic 50–59; PULSE 66–85; RESP 20–30; TEMP 97.6–98.9; O2SAT 90–100
[2017-11-23] MEDS: RESP: ALBUTEROL 2.5 MG/3 ML NEB (PRN) NEB (02:56)
[2017-11-23] MEDS: CHLORHEXIDINE GLUCONATE 2 % 1 PACK (2 CLOTHS) TOP SCH (04:00)
[2017-11-23] MEDS: ACETAMINOPHEN/HYDROcodone 325 MG/7.5 MG TAB PO PRN ×2 (04:18→21:27)
[2017-11-23] MEDS: DEXTROSE 5% IN WATE 1000ML INJ 1,000 ML IV SCH (06:00)
[2017-11-23] MEDS: methylPREDNISolone SOD SUCC 40 MG/1 ML VIAL IV PUSH SCH ×3 (06:36→21:27)
--- NOTE | 2017-11-23 08:20 | HHI.PR ---
Subjective Remarks Less SOB today on N/C. Pt unrealistically wants to go home yesterday or today. Objective Vital Signs Date Time Temp Pulse Resp B/P (MAP) Pulse Ox O2 Delivery O2 Flow Rate FiO2 11/23/17 08:07 96 Nasal Cannula 4.00 11/23/17 06:00 76 11/23/17 05:36 95 Nasal Cannula 4.00 11/23/17 05:31 100 Nasal Cannula 4.00 11/23/17 05:30 100 Nasal Cannula 4.00 11/23/17 04:00 97.6 80 30 97/50 (66) 93 11/23/17 04:00 80 11/23/17 03:10 98 Nasal Cannula 15.00 30 11/23/17 03:10 98 High Flow Nasal Cannula 15.00 30 11/23/17 02:00 66 11/23/17 00:00 97.7 68 28 97/54 (68) 90 11/23/17 00:00 68 11/22/17 22:00 78 11/22/17 20:43 92 High Flow Nasal Cannula 20.00 30 11/22/17 20:00 97.9 68 26 110/57 (74) 95 11/22/17 20:00 68 11/22/17 19:00 95 Nasal Cannula 20.00 30 11/22/17 18:00 74 11/22/17 16:39 20 11/22/17 16:00 97.6 84 30 112/57 (75) 97 11/22/17 16:00 80 11/22/17 14:00 74 11/22/17 12:00 76 11/22/17 10:00 74 I/O 11/22/17 11/22/17 11/22/17 11/23/17 11/23/17 11/23/17 07:00 15:00 23:00 07:00 15:00 23:00 Intake Total 200 ml 480 ml 300 ml Output Total 700 ml 950 ml 780 ml Balance -500 ml -470 ml -480 ml Intake Oral 200 ml 480 ml 300 ml Output Urine Total 700 ml 950 ml 780 ml # Bowel Movements 0 1 Result Diagram: 11/22/1751811/22/17518 Objective Remarks VS-S Abd: continue wet to dry dressing and binder. Wound not viewed today I&Os- good diuresis Low K+ with diuresis Assessment and Plan Assessment and Plan Stable with ARDS Wound open. SB moist with vaseline guaze and add moist 4x4s. Overall prognosis seems poor but pt desires to go home Plan: continue present support level.May transfer to floor when other specialties feel appropriate. Continue wound care TID. Continue O2 support Continue diuresis. Possibly increased K+ replacements Oc Tierney MD November 23, 2017 08:20
[2017-11-23] MEDS: SODIUM CHLORIDE 0.9% FLUSH 10 ML FLUSH IV FLUSH SCH ×2 (09:00→20:10)
[2017-11-23] MEDS: POTASSIUM CHLORIDE 25 MEQ EFFERVESCENT TAB PO SCH ×2 (09:35→20:10)
[2017-11-23] MEDS: NYSTATIN SUSP 500,000 U/5 ML CUP SWISH-SWAL SCH ×4 (09:35→20:10)
[2017-11-23] MEDS: FAMOTIDINE 20 MG TAB PO SCH ×2 (09:35→20:10)
[2017-11-23] MEDS: FUROSEMIDE 40 MG/4 ML VIAL IV SCH (09:35)
--- NOTE | 2017-11-23 11:19 | HHI.PR ---
Subjective Remarks 11/09: 52-year-old male with a medical history significant for Crohn's disease who underwent E lap with terminal ileum/ascending colon resection by Dr. Lane on 10/19/17. Patient was subsequently discharged on 10/31. He presented back to the ER on 11/04 with abdominal pain underwent labs and CAT scan and was subsequently discharged from the ER and followed up with Dr. Lane. He did develop some wound dehiscence and the upper part of his incision site and some ha were removed by Dr. Lane. Patient presented back to the ER on 11/09 as he was not feeling well with generalized weakness and abdominal pain and was noted to be hypotensive in the ER with a leukocytosis. He received 2 L normal saline bolus and was given empiric Zosyn for antibiotic coverage. Dr. Pryor spoke with Dr. Lane. Patient was accepted for admission by critical care medicine service and is being admitted to the ICU. When I evaluated the patient he was laying in the ER stretcher with systolic blood pressure in the 90s having received 2 L normal saline bolus. He was complaining of pain all over at the time. He denied any shortness of breath nausea or vomiting currently. He denied any melena or rectal bleeding. Denies any fever or chills. He did have slight dehiscence of his upper abdominal incision site with foul smell but minimal discharge. History was obtained by reviewing records and discussion with the ER physician. Patient is not a very good historian. He also reportedly has a history of cirrhosis and has had a TIPS procedure in June 2017. He has been on diuretics at home. 11/10: Remains hypotensive last night despite fluid boluses hence was started on Levophed for pressor support. Complains of abdominal pain this morning. Denies any shortness of breath. Evaluated by ID and awaiting CT abdomen pelvis this morning. On Levophed 9 mics per minute. 11/11: Patient had right-sided anterior chest tube placed yesterday for pneumothorax with resolution of pneumothorax. Right upper lobe collapse seems to have opened up on x-ray today. Patient appears to be breathing comfortably but remains confused. Remains on Levophed. 11/12: Resting comfortably in bed on nasal cannula. Off pressors. Dislodged pigtail catheter overnight however chest x-ray this morning does not show any pneumothorax. 05/07: Breathing comfortably with supplemental oxygen. Acceptably strong cough. White count remains elevated at 28,000. No specific complaints. Remains well hydrated. 11/14: Clearly more distress from yesterday. Increased FiO2 requirements. WBC 40 ,000. Weight is up a lot but little evidence of peripheral edema. Lung function not improving with aggressive diuresis. 11/15: somewhat improved from yesterday. off norepinephrine. wbc downtrended slightly. wound culture growing hira, and given patient's chronic immunosuppressed course, fungal etiologies would be in the differential. net - 900cc/24h. cr stable. remains on NRB and high fio2 requirements, although suspect more ARDS than fluid overload as a cause for his hypoxemia. ROS otherwise negative and subjectively patient feels better today compared with yesterday. abdominal pain mild and persistent. 11/16: very slow improvements. severe ARDS continues and remains on NRB, but patient subjectively feels better. cxr this AM with persistence of bilateral diffuse airspace disease. net -1L/24h. ROS otherwise negative. afebrile now s/p full course zosyn. 11/17: continues to subjectively feel better. slower to desaturate with activity. still hypoxic requiring high fio2. afebrile. wbc slowly downtrending. ROS otherwise negative. 11/18: Continues to require a nonrebreathing mask and radiographic appearance consistent with resolving ARDS. 11/19: We will attempt to transition to a high flow nasal cannula to facilitate weaning FiO2. A contraction alkalosis is developing which has expedited his potassium wasting. Will attempt to reverse with Diamox. 11/20: clinically stable. alternating between high flow NC and NRB. wbc uptrending, but afebrile. 5-15 Nursing reports that the patient had low potassium this morning. Has not had to push any IV pain medication since her shift this morning. Patient himself says that the potassium intravenously rivera really bad and does not want to do that again. Is asking when he can be discharged, says that he has family arranging stuff for him at home. 5-16 PATIENT IS ON LESS OXYGEN ONLY 10 LITERS OF HIGH FLOW NOW DW RN AND PT NEEDS PT AND OT KEEPS TAKING OXYGEN OFF SATS IN THE 80S WHEN OFF NO NEW COMPLAINTS 5-17 THREATENING TO GO AMA ONLY ON 4L BY NC BUT DESATS INTO THE 70S IF OFF OXYGEN DW RN AND PT PATIENT IS CONFUSED LABS PENDING? DID PATIENT REFUSE? Objective Vitals Vital Signs Date Time Temp Pulse Resp B/P (MAP) Pulse Ox O2 Delivery O2 Flow Rate FiO2 11/23/17 08:07 96 Nasal Cannula 4.00 11/23/17 08:00 98.9 70 20 106/54 (71) 100 11/23/17 07:00 96 Nasal Cannula 4.00 11/23/17 06:00 76 11/23/17 05:36 95 Nasal Cannula 4.00 11/23/17 05:31 100 Nasal Cannula 4.00 11/23/17 05:30 100 Nasal Cannula 4.00 11/23/17 04:00 97.6 80 30 97/50 (66) 93 11/23/17 04:00 80 11/23/17 03:10 98 Nasal Cannula 15.00 30 11/23/17 03:10 98 High Flow Nasal Cannula 15.00 30 11/23/17 02:00 66 11/23/17 00:00 97.7 68 28 97/54 (68) 90 11/23/17 00:00 68 11/22/17 22:00 78 11/22/17 20:43 92 High Flow Nasal Cannula 20.00 30 11/22/17 20:00 97.9 68 26 110/57 (74) 95 11/22/17 20:00 68 11/22/17 19:00 95 Nasal Cannula 20.00 30 11/22/17 18:00 74 11/22/17 16:39 20 11/22/17 16:00 97.6 84 30 112/57 (75) 97 11/22/17 16:00 80 11/22/17 14:00 74 11/22/17 12:00 76 I/O 11/22/17 11/22/17 11/22/17 11/23/17 11/23/17 11/23/17 07:00 15:00 23:00 07:00 15:00 23:00 Intake Total 200 ml 480 ml 300 ml Output Total 700 ml 950 ml 780 ml Balance -500 ml -470 ml -480 ml Intake Oral 200 ml 480 ml 300 ml Output Urine Total 700 ml 950 ml 780 ml # Bowel Movements 0 1 Result Diagram: 11/22/1751811/[id number]/17518 Other Results Laboratory Tests Test 11/20/17 12:06 11/20/17 17:40 11/20/17 19:12 11/21/17 03:40 Procalcitonin 0.19 ng/mL Potassium Level 3.3 MEQ/L 3.1 MEQ/L Blood Gas Puncture Site RT RADIAL Blood Gas Patient Temperature 98.6 Blood Gas HCO3 29 mmol/L Blood Gas Base Excess 6.0 mmol/L Blood Gas Oxygen Saturation 92 % Arterial Blood pH 7.50 Arterial Blood Partial Pressure CO2 39 mmHg Arterial Blood Partial Pressure O2 71 mmHg Arterial Blood Oxygen Content 12.6 Vol % Arterial Blood Carboxyhemoglobin 1.9 % Arterial Blood Methemoglobin 1.0 % Blood Gas Hemoglobin 9.7 G/DL Oxygen Delivery Device HIGH FLOW NC Blood Gas Liter Flow 30 L/M Blood Gas Inspired Oxygen 70 % White Blood Count 25.8 TH/MM3 Red Blood Count 3.20 MIL/MM3 Hemoglobin 9.0 GM/DL Hematocrit 26.9 % Mean Corpuscular Volume 84.1 FL Mean Corpuscular Hemoglobin 28.2 PG Mean Corpuscular Hemoglobin Concent 33.5 % Red Cell Distribution Width 16.1 % Platelet Count 159 TH/MM3 Mean Platelet Volume 9.1 FL Blood Urea Nitrogen 15 MG/DL Creatinine 0.63 MG/DL Random Glucose 187 MG/DL Calcium Level 7.7 MG/DL Sodium Level 142 MEQ/L Chloride Level 102 MEQ/L Carbon Dioxide Level 33.4 MEQ/L Anion Gap 7 MEQ/L Estimat Glomerular Filtration Rate 134 ML/MIN Magnesium Level 1.3 MG/DL Test 11/22/17 05:19 11/23/17 10:25 White Blood Count 33.5 TH/MM3 Red Blood Count 2.96 MIL/MM3 Hemoglobin 8.1 GM/DL Hematocrit 25.0 % Mean Corpuscular Volume 84.5 FL Mean Corpuscular Hemoglobin 27.3 PG Mean Corpuscular Hemoglobin Concent 32.3 % Red Cell Distribution Width 16.2 % Platelet Count 160 TH/MM3 Mean Platelet Volume 9.1 FL Blood Urea Nitrogen 17 MG/DL Creatinine 0.49 MG/DL Random Glucose 156 MG/DL Calcium Level 8.2 MG/DL Magnesium Level 2.2 MG/DL Sodium Level 143 MEQ/L Potassium Level 2.4 MEQ/L Chloride Level 106 MEQ/L Carbon Dioxide Level 28.0 MEQ/L Anion Gap 9 MEQ/L Estimat Glomerular Filtration Rate 179 ML/MIN Imaging Last Impressions Chest X-Ray 11/20/17 0400 Signed Impressions: Service Date/Time: Monday, November 20, 2017 05:02 - CONCLUSION: 1. Diffuse bilateral airspace disease similar to November 16. Small effusions. Dung Ellsworth MD Chest CT 11/20/17 0000 Signed Impressions: Service Date/Time: Monday, November 20, 2017 10:54 - CONCLUSION: Increasing coarse interstitial changes in both lungs with small bilateral pleural effusions. Interstitial pattern in the base is moving towards it honeycomb pattern. Hernando Rodrigez MD FACR Abdomen Ultrasound 11/11/17 0000 Signed Impressions: Service Date/Time: Saturday, November 11, 2017 14:19 - CONCLUSION: Trace ascites in the abdomen. Keegan Almaraz MD Abdomen/Pelvis CT 11/09/17 0000 Signed Impressions: Service Date/Time: Friday, November 10, 2017 11:22 - CONCLUSION: Increasing edema in the cecum and terminal ileum of uncertain etiology. Increasing stool in the sigmoid colon Enlarging right inguinal hernia Slight increase in amount of ascites. Hernando Rodrigez MD FACR Objective Remarks GENERAL: Awake and alert oriented 1-2 talkative-- somewhat cooperative --not wearing his oxygen correctly-- very thin frail appearing SKIN: Warm and dry. HEAD: Atraumatic. Normocephalic. EYES: Pupils equal and round. No scleral icterus. No injection or drainage. ENT: No nasal bleeding or discharge. Mucous membranes pink and moist. NECK: Trachea midline. No JVD. CARDIOVASCULAR: Regular rate and rhythm. S1-S2 no S3 or S4 RESPIRATORY: No accessory muscle use. Clear to auscultation. Breath sounds equal bilaterally. Decreased breath sounds bilaterally GASTROINTESTINAL: Abdomen soft, non-tender, nondistended. Hepatic and splenic margins not palpable. Abdomen is dressed MUSCULOSKELETAL: Extremities without clubbing, cyanosis, or edema. No obvious deformities. NEUROLOGICAL: Awake and alert. No obvious cranial nerve deficits. Motor grossly within normal limits. 4 out of 5 muscle strength in the arms and legs. Normal speech. PSYCHIATRIC: INAppropriate mood and affect; insight and judgment ABnormal. Medications and IVs Current Medications Piperacillin Sod/ Tazobactam Sod 100 ml @ 200 mls/hr ONCE STAT IV Last administered on 11/09/17at 12:45; Start 11/09/17 at 12:25; Stop 11/09/17 at 12:54; Status DC Vancomycin HCl 1000 mg/Sodium Chloride 250 ml @ 250 mls/hr ONCE STAT IV Last administered on 11/09/17at 13:31; Start 11/09/17 at 12:25; Stop 11/09/17 at 13:24; Status DC Sodium Chloride 1,000 ml @ 1,000 mls/hr Q1H ONCE IV Last administered on at 12:38; Start 11/09/17 at 12:25; Stop 11/09/17 at 13:24; Status DC Sodium Chloride 800 ml @ 1,000 mls/hr Q48M ONCE IV Last administered on at 12:38; Start 11/09/17 at 12:25; Stop 11/09/17 at 13:12; Status DC Potassium Chloride 100 ml @ 100 mls/hr Q1H IV Last administered on 11/09/17at 18 :35; Start 11/09/17 at 14:00; Stop 11/09/17 at 16:59; Status DC Potassium Chloride (KCl) 40 meq ONCE ONCE PO Last administered on 11/09/17at 14: 19; Start 11/09/17 at 14:00; Stop 11/09/17 at 14:10; Status DC Sodium Chloride 1,000 ml @ 999 mls/hr BOLUS ONCE IV Last administered on at 14:08; Start 11/09/17 at 14:15; Stop 11/09/17 at 15:15; Status DC Sodium Chloride 1,000 ml @ 150 mls/hr Q6H40M IV Last administered on 11/09/17at 15:21; Start 11/09/17 at 14:36; Stop 11/09/17 at 17:24; Status DC Sodium Chloride (NS Flush) 2 ml UNSCH PRN IV FLUSH FLUSH AFTER USING IV ACCESS ; Start 11/09/17 at 14:45 Sodium Chloride (NS Flush) 2 ml BID IV FLUSH Last administered on 11/23/17at 09: 00; Start 11/09/17 at 21:00 Famotidine (Pepcid) 20 mg Q12HR PO Last administered on 11/23/17at 09:35; Start 11/09/17 at 21:00 Albuterol/ Ipratropium (Duoneb Neb) 1 ampule Q4HR NEB PRN NEB WHEEZING; Start 11/09/17 at 15:00; Stop 11/10/17 at 21:22; Status DC Enoxaparin Sodium (Lovenox Inj) 40 mg Q24H SQ Last administered on 11/10/17at 16: 51; Start 11/09/17 at 15:00; Stop 11/10/17 at 17:22; Status DC Vancomycin HCl 1000 mg/Sodium Chloride 250 ml @ 250 mls/hr Q18H IV Last administered on 11/14/17at 21:00; Start 11/10/17 at 08:00; Stop 11/14/17 at 23:45; Status DC Pharmacy Profile Note 0 ml @ 0 mls/hr UNSCH OTHER ; Start 11/09/17 at 15:00; Status Cancel Piperacillin Sod/ Tazobactam Sod 100 ml @ 200 mls/hr Q6H IV Last administered on 11/15/17at 20:06; Start 11/09/17 at 20:00; Stop 11/15/17 at 21:00; Status DC Miscellaneous Information [place] [place] [facility] [place] 1 [id number] XX Last administered on 11/10/17at 20:47; Start 11/09/17 at 14:45 Chlorhexidine Gluconate (Chlorhexidine 2% Cloth) Taper DAILY@04 TOP Last administered on 11/12/17at 04:00; Start 11/10/17 at 04:00; Stop 11/06/18 at 03:59 Chlorhexidine Gluconate (Chlorhexidine 2% Cloth) 3 pack UNSCH PRN TOP HYGIENIC CARE; Start 11/09/17 at 14:45 Potassium Chloride 100 ml @ 50 mls/hr Q2H PRN IV For Potassium 2.8 - 3.2 mEq/ L Last administered on 11/15/17at 11:28; Start 11/09/17 at 17:30; Stop 11/21/17 at 08:33; Status DC Potassium Chloride 100 ml @ 50 mls/hr Q2H PRN IV For Potassium 2.8 - 3.2 mEq/ L Last administered on 11/20/17at 05:48; Start 11/09/17 at 17:30; Stop 11/21/17 at 08:33; Status DC Potassium Chloride 100 ml @ 25 mls/hr UNSCH PRN IV For Potassium 3.3 - 3.5 mEq /L; Start 11/09/17 at 17:30; Stop 11/21/17 at 08:33; Status DC Potassium Chloride 100 ml @ 50 mls/hr Q2H PRN IV For Potassium 3.3 - 3.5 mEq/ L Last administered on 11/20/17at 23:53; Start 11/09/17 at 17:30; Stop 11/21/17 at 08:33; Status DC Magnesium Sulfate 4 gm/Sodium Chloride 100 ml @ 50 mls/hr UNSCH PRN IV For Magnesium 0.9 - 1.1 mg/dL; Start 11/09/17 at 17:30; Stop 11/21/17 at 08:33; Status DC Magnesium Oxide (Mag-Ox) 800 mg UNSCH PRN PO For Magnesium 1.2 - 1.6 mg/dL; Start 11/09/17 at 17:30; Stop 11/09/17 at 17:41; Status DC Magnesium Sulfate 2 gm/Sodium Chloride 100 ml @ 50 mls/hr UNSCH PRN IV For Magnesium 1.2 - 1.6 mg/dL Last administered on 11/12/17at 08:07; Start 11/09/17 at 17:30; Stop 11/21/17 at 08:33; Status DC Potassium Phosphate (K-Phos) 2,000 mg Q4H PRN PO For Phosphorus < 2.5 mg/dL; Start 11/09/17 at 17:30; Stop 11/21/17 at 08:33; Status DC Sodium Phosphate 30 mmol/Sodium Chloride 250 ml @ 42 mls/hr UNSCH PRN IV For Phosphorus < 2.5 mg/dL; Start 11/09/17 at 17:30; Stop 11/21/17 at 08:33; Status DC Potassium Phosphate (K-Phos) 2,000 mg UNSCH PRN PO/TUBE SEE LABEL COMMENTS; Start 11/09/17 at 17:30; Stop 11/21/17 at 08:33; Status DC Potassium Phosphate 30 mmol/ Sodium Chloride 260 ml @ 42 mls/hr UNSCH PRN IV SEE LABEL COMMENTS; Start 11/09/17 at 17:30; Stop 11/21/17 at 08:33; Status DC Albumin Human 250 ml @ 250 mls/hr Q6HR IV Last administered on 11/10/17at 04:38 ; Start 11/09/17 at 18:00; Stop 11/10/17 at 09:00; Status DC Dextrose/Lactated Ringer's 1,000 ml @ 150 mls/hr Q6H40M IV Last administered on 11/10/17at 16:51; Start 11/09/17 at 17:30; Stop 11/10/17 at 19:11; Status DC Lactated Ringer's 1,000 ml @ 999 mls/hr BOLUS ONCE IV Last administered on 11/09/17at 18:14; Start 11/09/17 at 17:45; Stop 11/09/17 at 18:46; Status DC Vancomycin HCl 800 mg/Sodium Chloride 258 ml @ 250 mls/hr ONCE ONCE IV ; Start 11/09/17 at 18:13; Stop 11/09/17 at 19:14; Status Cancel Hydrocortisone Sodium Succinate (SoluCORTEF INJ) 50 mg Q6HR IV PUSH Last administered on 11/13/17at 17:01; Start 11/09/17 at 18:00; Stop 11/13/17 at 19:55; Status DC Phenylephrine HCl 40 mg/Dextrose 500 ml @ 30 mls/hr TITRATE PRN IV Blood Pressure Management Last administered on 11/09/17at 20:53; Start 11/09/17 at 20:45 ; Stop 11/10/17 at 03:05; Status DC Terbutaline Sulfate (Brethine Inj) 1 mg UNSCH PRN SQ FOR EXTRAVASATION PROTOCOL ; Start 11/09/17 at 20:45 Doxycycline Hyclate 100 mg/ Sodium Chloride 100 ml @ 100 mls/hr Q12H IV Last administered on 11/19/17at 23:20; Start 11/10/17 at 00:00; Stop 11/20/17 at 07:16 ; Status DC Metronidazole 100 ml @ 100 mls/hr Q8H IV Last administered on 11/17/17at 01:25 ; Start 11/10/17 at 01:00; Stop 11/17/17 at 07:21; Status DC Acetaminophen/ Hydrocodone Bitart ([place] 7.5-325 Mg) 1 tab Q4H PRN PO PAIN 1- 5 Last administered on 11/23/17at 04:18; Start 11/09/17 at 23:45 Norepinephrine Bitartrate 250 ml @ 7.5 mls/hr TITRATE PRN IV Maintain MAP > 65 mmHg Last administered on 11/11/17at 02:26; Start 11/10/17 at 03:15; Stop at 10:12; Status DC Diatrizoate Meglum/ Diatrizoate Sod ( Gastrokasi Liq) 18 ml ONCE ONCE PO Last administered on 11/10/17at 09:12; Start 11/10/17 at 07:00; Stop 11/10/17 at 07: 01; Status DC Morphine Sulfate (Morphine Inj) 4 mg Q3H PRN IV PUSH pain scale 6-10 Last administered on 11/20/17at 23:53; Start 11/10/17 at 07:15; Stop 11/21/17 at 08:33 ; Status DC Midazolam HCl (Versed Inj) 5 mg STK-MED ONCE .ROUTE Last administered on at 09:12; Start 11/10/17 at 07:43; Stop 11/10/17 at 07:44; Status DC Lidocaine HCl (Xylocaine 2% Inj) 100 mg STK-MED ONCE .ROUTE ; Start 11/10/17 at 07:53; Stop 11/10/17 at 07:54; Status DC Lidocaine HCl (Xylocaine 2% Inj) 100 mg STK-MED ONCE .ROUTE ; Start 11/10/17 at 08:06; Stop 11/10/17 at 08:07; Status DC Pharmacy Profile Note 0 ml @ 0 mls/hr UNSCH OTHER ; Start 11/10/17 at 08:45; Status UNV Vancomycin HCl 850 mg/Sodium Chloride 258.5 ml @ 250 mls/hr Q12H IV ; Start 11/10/17 at 08:45; Status UNV Miscellaneous Information [place] [place] [facility] SPECIFIC LAB TO BE DRAWN:VANCOMY... ONCE ONCE .XX Last administered on 11/11/17at 19:45; Start 11/11 at 19:45; Stop 11/11/17 at 19:46; Status DC Nystatin (Mycostatin Liq) 5 ml QID SWISH-SWAL Last administered on 11/23/17at 09:35; Start 11/10/17 at 13:00 Lidocaine/ Epinephrine (Xylocaine-Epi 1%-1:100,000 Inj) 10 ml ONCE ONCE INFIL ; Start 11/10/17 at 18:45; Stop 11/10/17 at 18:46; Status DC Midazolam HCl (Versed Inj) 2 mg ONCE ONCE IV PUSH Last administered on 19:11; Start 11/10/17 at 18:45; Stop 11/10/17 at 18:46; Status DC Morphine Sulfate (Morphine Inj) 2 mg ONCE ONCE IV PUSH Last administered on 11/10/17at 19:11; Start 11/10/17 at 18:45; Stop 11/10/17 at 18:46; Status DC Dextrose/Lactated Ringer's 1,000 ml @ 100 mls/hr Q10H IV Last administered on 11/14/17at 03:29; Start 11/10/17 at 19:00; Stop 11/14/17 at 10:22; Status DC Midazolam HCl (Versed Inj) 2 mg ONCE ONCE IV PUSH ; Start 11/10/17 at 19:45; Stop 11/10/17 at 19:46; Status DC Morphine Sulfate (Morphine Inj) 2 mg ONCE ONCE IV PUSH ; Start 11/10/17 at 19:45 ; Stop 11/10/17 at 19:46; Status DC Phytonadione 10 mg/Sodium Chloride 51 ml @ 102 mls/hr ONCE ONCE IV Last administered on 11/10/17at 20:47; Start 11/10/17 at 21:00; Stop 11/10/17 at 21:29; Status DC Albuterol/ Ipratropium (Duoneb Neb) 1 ampule Q6HR NEB NEB Last administered on 11/14/17at 19:53; Start 11/10/17 at 22:00; Stop 11/14/17 at 21:56; Status DC Sodium Chloride (Sodium Chloride 3% Neb) 2 ml Q6HR NEB NEB Last administered on 11/15/17at 16:19; Start 11/10/17 at 22:00; Stop 11/15/17 at 21:59; Status DC Albuterol Sulfate (Albuterol Neb) 2.5 mg Q2HR NEB PRN NEB Dyspnea Last administered on 11/23/17at 02:56; Start 11/10/17 at 21:30 Furosemide (Lasix Inj) 20 mg Q12HR IV PUSH Last administered on 11/13/17at 20:48 ; Start 11/11/17 at 11:15; Stop 11/14/17 at 09:36; Status DC Sodium Chloride 250 ml @ 15 mls/hr ONCE ONCE IV Last administered on at 12:27; Start 11/11/17 at 11:30; Stop 11/12/17 at 04:09; Status DC Magnesium Sulfate/ Dextrose 200 ml @ As Directed STK-MED ONCE .ROUTE ; Start at 08:03; Stop 11/12/17 at 08:04; Status DC Miscellaneous Information ([facility] [place] [facility] [place] SPECIFIC LAB TO BE . ONCE ONCE .XX Last administered on 11/14/17at 21:00; Start 11/14/17 at 19: 45; Stop 11/14/17 at 19:46; Status DC Hydrocortisone Sodium Succinate (SoluCORTEF INJ) 40 mg Q12H IV PUSH Last administered on 11/15/17at 05:01; Start 11/14/17 at 06:00; Stop 11/15/17 at 10:21; Status DC Alprazolam (Xanax) 0.5 mg Q8H PRN PO ANXIETY Last administered on 11/22/17at 08: 02; Start 11/13/17 at 20:00 Furosemide (Lasix Inj) 40 mg Q12HR IV Last administered on 11/23/17at 09:35; Start 11/14/17 at 10:00 Albuterol/ Ipratropium (Duoneb Neb) 1 ampule Q6HR NEB NEB Last administered on 11/18/17at 21:17; Start 11/14/17 at 23:00; Stop 11/18/17 at 22:59; Status DC Vancomycin HCl 1250 mg/Sodium Chloride 262.5 ml @ 250 mls/hr Q12H IV Last administered on 11/15/17at 06:00; Start 11/15/17 at 06:00; Stop 11/15/17 at 14:27; Status DC Miscellaneous Information ([facility] [place] [facility] [place] SPECIFIC LAB TO BE DRAWN:VANCO TROUGH DATE TO BE ONCE ONCE .XX ; Start 11/17/17 at 05:45; Stop 11/17/17 at 05:46; Status Cancel Dextrose 1,000 ml @ 25 mls/hr Q24H IV Last administered on 11/22/17at 06:00; Start 11/15/17 at 10:00 Fluconazole/ Sodium Chloride 200 ml @ 100 mls/hr ONCE ONCE IV Last administered on 11/15/17at 11:13; Start 11/15/17 at 10:00; Stop 11/15/17 at 11:59; Status DC Fluconazole/ Sodium Chloride 100 ml @ 100 mls/hr Q24H IV Last administered on 11/22/17at 11:18; Start 11/16/17 at 11:00 Hydrocortisone Sodium Succinate (SoluCORTEF INJ) 30 mg Taper Q12H IV PUSH Last administered on 11/16/17at 06:00; Start 11/15/17 at 18:00; Stop 11/16/17 at 07:17 ; Status DC Vancomycin HCl 1500 mg/Sodium Chloride 515 ml @ 250 mls/hr Q12H IV Last administered on 11/16/17at 06:00; Start 11/15/17 at 18:00; Stop 11/16/17 at 09:06 ; Status DC Potassium Chloride (KCl) 40 meq NOW ONCE PO Last administered on 11/15/17at 23: 00; Start 11/15/17 at 23:00; Stop 11/15/17 at 23:01; Status DC Potassium Chloride (KCl Powder) 40 meq Q2H PO Last administered on 11/16/17at 08 :43; Start 11/16/17 at 04:15; Stop 11/16/17 at 08:16; Status DC Hydrocortisone Sodium Succinate (SoluCORTEF INJ) 10 mg Taper Q12H IV PUSH Last administered on 11/19/17at 05:35; Start 11/16/17 at 18:00; Stop 11/19/17 at 17:59 ; Status DC Acetazolamide Sodium (Diamox Inj) 250 mg ONCE ONCE IV PUSH Last administered on 11/17/17at 07:54; Start 11/17/17 at 07:30; Stop 11/17/17 at 07:31; Status DC Acetazolamide Sodium (Diamox Inj) 500 mg DAILY IV PUSH Last administered on at 11:31; Start 11/19/17 at 11:15; Stop 11/21/17 at 06:05; Status DC Potassium Bicarb/ Potassium Chloride (K-Lyte Cl Eff) 50 meq ONCE ONCE PO Last administered on 11/20/17at 09:46; Start 11/20/17 at 07:30; Stop 11/20/17 at 07:31; Status DC Methylprednisolone Sodium Succinate (SoluMEDROL INJ) 40 mg Q8HR IV PUSH Last administered on 11/23/17at 06:36; Start 11/20/17 at 22:00 Acetazolamide Sodium (Diamox Inj) 500 mg Q8H IV PUSH Last administered on at 09:36; Start 11/21/17 at 09:00 Potassium Bicarb/ Potassium Chloride (K-Lyte Cl Eff) 25 meq ONCE ONCE PO Last administered on 11/21/17at 09:46; Start 11/21/17 at 08:45; Stop 11/21/17 at 08:46; Status DC Potassium Bicarb/ Potassium Chloride (K-Lyte Cl Eff) 25 meq DAILY PO Last administered on 11/23/17at 09:35; Start 11/21/17 at 09:00 Magnesium Sulfate/ Dextrose 100 ml @ 100 mls/hr Q1H IV Last administered on at 12:41; Start 11/21/17 at 09:30; Stop 11/21/17 at 11:29; Status DC Potassium Chloride 100 ml @ 50 mls/hr ONCE ONCE IV Last administered on at 08:04; Start 11/22/17 at 07:00; Stop 11/22/17 at 08:59; Status DC Potassium Bicarb/ Potassium Chloride (K-Lyte Cl Eff) 50 meq ONCE ONCE PO Last administered on 11/22/17at 08:04; Start 11/22/17 at 07:00; Stop 11/22/17 at 07:01; Status DC Potassium Bicarb/ Potassium Chloride (K-Lyte Cl Eff) 100 meq ONCE ONCE PO ; Start 11/22/17 at 08:30; Stop 11/22/17 at 08:31; Status DC A/P Problem List: (1) Tobacco use ICD Code: Z72.0 - Tobacco use Status: Acute (2) History of resection of terminal ileum ICD Code: Z98.890 - Other specified postprocedural states; Z90.49 - Acquired absence of other specified parts of digestive tract Status: Acute (3) Tobacco abuse ICD Code: Z72.0 - Tobacco use Status: Acute (4) Wound dehiscence ICD Code: T81.30XA - Disruption of wound, unspecified, initial encounter; Z90.49 - Acquired absence of other specified parts of digestive tract Status: Acute (5) Crohns disease ICD Code: K50.90 - Crohn's disease, unspecified, without complications Status: Acute (6) Hypokalemia ICD Code: E87.6 - Hypokalemia Status: Acute (7) FEN Status: Acute Assessment and Plan acute hypoxic respiratory failure -Pulmonology following, -ARDS -continue diuretics; echo showing EF of 50% 1 month ago -IV Diflucan for fungal coverage given extensive steroid course -solumedrol - taper course -Remains 4L BY NC WHEN HE WEARS IT- DESATS INTO THE [facility] WHEN IT IS OFF Status post colonic resection with wound dehiscence -Dressing changes per colorectal surgery -P.o. 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
[2017-11-23 11:33] LABS: BLOOD UREA NITROGEN 22 MG/DL (7-18); CREATININE 0.66 MG/DL (0.60-1.30); GLOMERULAR FILTRATION RATE 127 ML/MIN (>89); GLUCOSE,RANDOM 167 MG/DL (74-106); TOTAL PROTEIN 5.2 GM/DL (6.4-8.2)
[2017-11-23 11:34] LABS: ALBUMIN 2.1 GM/DL (3.4-5.0); CALCIUM 8.9 MG/DL (8.5-10.1); PHOSPHORUS 2.6 MG/DL (2.5-4.9)
[2017-11-23 11:35] LABS: ALKALINE PHOSPHATASE 443 U/L (45-117); ALT (GPT) 105 U/L (12-78); AST (GOT) 129 U/L (15-37); MAGNESIUM 2.2 MG/DL (1.5-2.5); SODIUM (NA) 143 MEQ/L (136-145); TOTAL BILIRUBIN ADULT 1.2 MG/DL (0.2-1.0)
[2017-11-23 11:36] LABS: BICARBONATE 30.2 MEQ/L (21.0-32.0); CHLORIDE 105 MEQ/L (98-107); FREE T4 0.84 NG/DL (0.76-1.46)
[2017-11-23] MEDS: FLUCONAZOLE 200 MG PREMIX BAG 100 ML IV SCH (12:22)
[2017-11-23 12:49] LABS: AUTOMATED NEUTROPHIL # 40.1 TH/MM3 (1.8-7.7); BASOPHIL # 0.1 TH/MM3 (0-0.2); BASOPHIL % 0.2 % (0.0-2.0); HEMOGLOBIN 10.7 GM/DL (13.0-17.0); LYMPHOCYTE # 1.3 TH/MM3 (1.0-4.8); MEAN CELL VOLUME 87.3 FL (80.0-100.0); MEAN CORPUSCULAR HEMOGLOBIN 27.5 PG (27.0-34.0); MEAN CORPUSCULAR HGB CONC 31.5 % (32.0-36.0); MEAN PLATELET VOLUME 9.5 FL (7.0-11.0); MONO % 3.7 % (0.0-8.0); MONOCYTE # 1.6 TH/MM3 (0-0.9); NEUT % 93.1 % (16.0-70.0); PLATELET COUNT 254 TH/MM3 (150-450); RED CELL DISTRIBUTION WIDTH 17.3 % (11.6-17.2)
[2017-11-23 13:27] LABS: BANDS 3 % (0-6); LYMPHOCYTES 4 % (9-44); MONOCYTES 4 % (0-8); NEUTROPHIL # MANUAL DIFF 39.6 TH/MM3 (1.8-7.7); POLYS (SEG NEUTROPHILS) 89 % (16-70)
[2017-11-23 13:28] LABS: ACANTHOCYTES 1+ (NORMAL); OVALOCYTES 1+ (NORMAL)
[2017-11-23 16:23] LABS: HEMOGLOBIN A1C 5.1 % (4.3-6.0)
[2017-11-23] MEDS: FUROSEMIDE 40 MG TAB PO SCH (17:02)
--- NOTE | 2017-11-23 19:10 | HHI.PR ---
Subjective Remarks 52 YOWM with Crohn's dis, Cirrohosis, s/p TIPS, abd surgery,ARDS Breathing better Weaned to 4LNC Feels better Tolerates PO Objective Vital Signs Vital Signs Date Time Temp Pulse Resp B/P (MAP) Pulse Ox O2 Delivery O2 Flow Rate FiO2 11/23/17 18:00 72 11/23/17 16:00 98.9 66 27 114/57 (76) 98 11/23/17 16:00 66 11/23/17 14:00 69 11/23/17 12:00 98.7 70 24 109/55 (73) 99 11/23/17 12:00 70 11/23/17 10:00 85 11/23/17 08:07 96 Nasal Cannula 4.00 11/23/17 08:00 70 11/23/17 08:00 98.9 70 20 106/54 (71) 100 11/23/17 07:00 96 Nasal Cannula 4.00 11/23/17 06:00 76 11/23/17 05:36 95 Nasal Cannula 4.00 11/23/17 05:31 100 Nasal Cannula 4.00 11/23/17 05:30 100 Nasal Cannula 4.00 11/23/17 04:00 97.6 80 30 97/50 (66) 93 11/23/17 04:00 80 11/23/17 03:10 98 Nasal Cannula 15.00 30 11/23/17 03:10 98 High Flow Nasal Cannula 15.00 30 11/23/17 02:00 66 11/23/17 00:00 97.7 68 28 97/54 (68) 90 11/23/17 00:00 68 11/22/17 22:00 78 11/22/17 20:43 92 High Flow Nasal Cannula 20.00 30 11/22/17 20:00 97.9 68 26 110/57 (74) 95 11/22/17 20:00 68 I/O 11/22/17 11/22/17 11/22/17 11/23/17 11/23/17 11/23/17 07:00 15:00 23:00 07:00 15:00 23:00 Intake Total 200 ml 480 ml 300 ml 400 ml 1715 ml Output Total 700 ml 950 ml 780 ml 950 ml Balance -500 ml -470 ml -480 ml 400 ml 765 ml Intake Oral 200 ml 480 ml 300 ml 1440 ml IV Total 400 ml 275 ml Output Urine Total 700 ml 950 ml 780 ml 950 ml # Bowel Movements 0 1 1 Result Diagram: 11/23/17 1025 11/23/17 1025 Objective Remarks GENERAL: MBMNWM, mild sob SKIN: Warm and dry. HEAD: Normocephalic. EYES: No scleral icterus. No injection or drainage. NECK: Supple, trachea midline. No JVD or lymphadenopathy. CARDIOVASCULAR: Regular rate and rhythm without murmurs, gallops, or rubs. RESPIRATORY: Breath sounds equal bilaterally. No accessory muscle use. GASTROINTESTINAL: Abdomen soft, non-tender, nondistended. Abd wound dressed MUSCULOSKELETAL: No cyanosis, or edema. BACK: Nontender without obvious deformity. No CVA tenderness. A/P Assessment and Plan IMPRESSION: 1. Bilateral lung infiltrate with interstitial pattern and appearing fibrotic changes, possibly has acute respiratory distress syndrome and also possible underlying interstitial lung disease. 2. History of nicotine use. 3. Cirrhosis of the liver, status post transjugular intrahepatic portosystemic shunt procedure. 4. Crohn's disease. PLAN Supplement 02 with NC Keep sat 90-94% IV Solumedrol Cont Abx Replace K+ CXr in AM Zach Mas MD November 23, 2017 19:10
[2017-11-24] VITALS (14 sets, daily range): BP systolic 109–121; BP diastolic 55–62; PULSE 63–78; RESP 8–17; TEMP 97.2–98.8; O2SAT 96–99
[2017-11-24] MEDS: CHLORHEXIDINE GLUCONATE 2 % 1 PACK (2 CLOTHS) TOP SCH (04:00)
--- NOTE | 2017-11-24 04:06 | RADRPT ---
EXAM DATE/TIME: 11/24/2017 03:30 [facility] COMPARISON: CHEST SINGLE AP, November 20, 2017, 5:02. INDICATIONS : Infiltrates. MEDICAL HISTORY : Pancreatitis. Hernia, hiatal. Gastroesophageal reflux disease.Crohn's. SURGICAL HISTORY : Colon resection. Chest tube placement. ENCOUNTER: Subsequent ACUITY: 1 month PAIN SCORE: 8/10 LOCATION: Left chest inferior FINDINGS: Considerable improvement in the diffuse bilateral pulmonary infiltrates. Infiltrates remain. No effus ions. Heart is normal in size. CONCLUSION: Considerable improvement but residual bilateral infiltrates. Lalo Zavala Jr., MD on November 24, 2017 at 4:04 Board Certified Radiologist. This report was verified electronically.
[2017-11-24 04:12] LABS: AUTOMATED NEUTROPHIL # 35.8 TH/MM3 (1.8-7.7); BASOPHIL % 0.1 % (0.0-2.0); HEMATOCRIT 25.7 % (39.0-51.0); HEMOGLOBIN 8.3 GM/DL (13.0-17.0); LYMPH % 2.8 % (9.0-44.0); LYMPHOCYTE # 1.1 TH/MM3 (1.0-4.8); MEAN CELL VOLUME 85.9 FL (80.0-100.0); MEAN CORPUSCULAR HEMOGLOBIN 27.7 PG (27.0-34.0); MEAN CORPUSCULAR HGB CONC 32.2 % (32.0-36.0); MEAN PLATELET VOLUME 9.3 FL (7.0-11.0); MONO % 6.3 % (0.0-8.0); MONOCYTE # 2.5 TH/MM3 (0-0.9); NEUT % 90.8 % (16.0-70.0); PLATELET COUNT 187 TH/MM3 (150-450); RED BLOOD COUNT 2.99 MIL/MM3 (4.50-5.90); RED CELL DISTRIBUTION WIDTH 16.6 % (11.6-17.2); WHITE BLOOD COUNT 39.4 TH/MM3 (4.0-11.0)
[2017-11-24 04:48] LABS: ALBUMIN 1.7 GM/DL (3.4-5.0); ALKALINE PHOSPHATASE 355 U/L (45-117); ALT (GPT) 116 U/L (12-78); AST (GOT) 107 U/L (15-37); BICARBONATE 28.1 MEQ/L (21.0-32.0); BLOOD UREA NITROGEN 21 MG/DL (7-18); CALCIUM 8.6 MG/DL (8.5-10.1); CHLORIDE 109 MEQ/L (98-107); CREATININE 0.61 MG/DL (0.60-1.30); GLOMERULAR FILTRATION RATE 139 ML/MIN (>89); GLUCOSE,RANDOM 160 MG/DL (74-106); MAGNESIUM 1.9 MG/DL (1.5-2.5); PHOSPHORUS 2.3 MG/DL (2.5-4.9); SODIUM (NA) 146 MEQ/L (136-145); TOTAL PROTEIN 4.2 GM/DL (6.4-8.2)
[2017-11-24] MEDS ORDERED: POTASSIUM CHLORIDE 20 MEQ CONTROLLED RELEASE TAB PO ONE (05:15)
[2017-11-24] MEDS: methylPREDNISolone SOD SUCC 40 MG/1 ML VIAL IV PUSH SCH ×3 (05:45→20:42)
[2017-11-24] MEDS: ACETAMINOPHEN/HYDROcodone 325 MG/7.5 MG TAB PO PRN ×3 (05:45→17:18)
[2017-11-24] MEDS: POTASSIUM CHLOR 20 MEQ PREMIX 100 ML IV SCH ×6 (05:45→20:50)
[2017-11-24] MEDS: DEXTROSE 5% IN WATE 1000ML INJ 1,000 ML IV SCH (06:00)
[2017-11-24] MEDS: NYSTATIN SUSP 500,000 U/5 ML CUP SWISH-SWAL SCH ×4 (08:08→20:42)
[2017-11-24] MEDS: FAMOTIDINE 20 MG TAB PO SCH ×2 (08:08→20:42)
[2017-11-24] MEDS: FUROSEMIDE 40 MG TAB PO SCH (08:08)
[2017-11-24] MEDS: POTASSIUM CHLORIDE 25 MEQ EFFERVESCENT TAB PO SCH ×2 (08:09→20:42)
[2017-11-24] MEDS: SODIUM CHLORIDE 0.9% FLUSH 10 ML FLUSH IV FLUSH SCH ×2 (08:11→20:41)
[2017-11-24 09:16] LABS: LYMPHOCYTES 3 % (9-44); MONOCYTES 4 % (0-8); NEUTROPHIL # MANUAL DIFF 36.6 TH/MM3 (1.8-7.7); POLYS (SEG NEUTROPHILS) 93 % (16-70)
[2017-11-24 09:18] LABS: OVALOCYTES 1+ (NORMAL); TOXIC GRANULATION 1+ (NORMAL)
--- NOTE | 2017-11-24 11:04 | HHI.PR ---
Subjective Remarks 11/09: 52-year-old male with a medical history significant for Crohn's disease who underwent E lap with terminal ileum/ascending colon resection by Dr. Lane on 10/19/17. Patient was subsequently discharged on 10/31. He presented back to the ER on 11/04 with abdominal pain underwent labs and CAT scan and was subsequently discharged from the ER and followed up with Dr. Lane. He did develop some wound dehiscence and the upper part of his incision site and some ha were removed by Dr. Lane. Patient presented back to the ER on 11/09 as he was not feeling well with generalized weakness and abdominal pain and was noted to be hypotensive in the ER with a leukocytosis. He received 2 L normal saline bolus and was given empiric Zosyn for antibiotic coverage. Dr. Pryor spoke with Dr. Lane. Patient was accepted for admission by critical care medicine service and is being admitted to the ICU. When I evaluated the patient he was laying in the ER stretcher with systolic blood pressure in the 90s having received 2 L normal saline bolus. He was complaining of pain all over at the time. He denied any shortness of breath nausea or vomiting currently. He denied any melena or rectal bleeding. Denies any fever or chills. He did have slight dehiscence of his upper abdominal incision site with foul smell but minimal discharge. History was obtained by reviewing records and discussion with the ER physician. Patient is not a very good historian. He also reportedly has a history of cirrhosis and has had a TIPS procedure in June 2017. He has been on diuretics at home. 11/10: Remains hypotensive last night despite fluid boluses hence was started on Levophed for pressor support. Complains of abdominal pain this morning. Denies any shortness of breath. Evaluated by ID and awaiting CT abdomen pelvis this morning. On Levophed 9 mics per minute. 11/11: Patient had right-sided anterior chest tube placed yesterday for pneumothorax with resolution of pneumothorax. Right upper lobe collapse seems to have opened up on x-ray today. Patient appears to be breathing comfortably but remains confused. Remains on Levophed. 11/12: Resting comfortably in bed on nasal cannula. Off pressors. Dislodged pigtail catheter overnight however chest x-ray this morning does not show any pneumothorax. 05/07: Breathing comfortably with supplemental oxygen. Acceptably strong cough. White count remains elevated at 28,000. No specific complaints. Remains well hydrated. 11/14: Clearly more distress from yesterday. Increased FiO2 requirements. WBC 40 ,000. Weight is up a lot but little evidence of peripheral edema. Lung function not improving with aggressive diuresis. 11/15: somewhat improved from yesterday. off norepinephrine. wbc downtrended slightly. wound culture growing hira, and given patient's chronic immunosuppressed course, fungal etiologies would be in the differential. net - 900cc/24h. cr stable. remains on NRB and high fio2 requirements, although suspect more ARDS than fluid overload as a cause for his hypoxemia. ROS otherwise negative and subjectively patient feels better today compared with yesterday. abdominal pain mild and persistent. 11/16: very slow improvements. severe ARDS continues and remains on NRB, but patient subjectively feels better. cxr this AM with persistence of bilateral diffuse airspace disease. net -1L/24h. ROS otherwise negative. afebrile now s/p full course zosyn. 11/17: continues to subjectively feel better. slower to desaturate with activity. still hypoxic requiring high fio2. afebrile. wbc slowly downtrending. ROS otherwise negative. 11/18: Continues to require a nonrebreathing mask and radiographic appearance consistent with resolving ARDS. 11/19: We will attempt to transition to a high flow nasal cannula to facilitate weaning FiO2. A contraction alkalosis is developing which has expedited his potassium wasting. Will attempt to reverse with Diamox. 11/20: clinically stable. alternating between high flow NC and NRB. wbc uptrending, but afebrile. 5-15 Nursing reports that the patient had low potassium this morning. Has not had to push any IV pain medication since her shift this morning. Patient himself says that the potassium intravenously rivera really bad and does not want to do that again. Is asking when he can be discharged, says that he has family arranging stuff for him at home. 5-16 PATIENT IS ON LESS OXYGEN ONLY 10 LITERS OF HIGH FLOW NOW DW RN AND PT NEEDS PT AND OT KEEPS TAKING OXYGEN OFF SATS IN THE 80S WHEN OFF NO NEW COMPLAINTS 5-17 THREATENING TO GO AMA ONLY ON 4L BY NC BUT DESATS INTO THE 70S IF OFF OXYGEN DW RN AND PT PATIENT IS CONFUSED LABS PENDING? DID PATIENT REFUSE? 11-24 STILL HAVING SEVERE HYPOKALEMIA HOLD LASIX REPLACE POTASSIUM AM LABS DW RN AND PATIENT Objective Vitals Vital Signs Date Time Temp Pulse Resp B/P (MAP) Pulse Ox O2 Delivery O2 Flow Rate FiO2 11/24/17 10:53 98 Nasal Cannula 2.00 11/24/17 07:00 99 Nasal Cannula 2.00 11/24/17 06:00 63 11/24/17 05:00 97 Nasal Cannula 2.00 11/24/17 04:00 97.2 64 8 109/57 (74) 98 11/24/17 04:00 64 11/24/17 02:00 65 11/24/17 00:00 97.7 66 10 121/57 (78) 97 11/24/17 00:00 68 11/23/17 22:00 67 11/23/17 21:07 96 Nasal Cannula 4.00 11/23/17 20:00 97 Nasal Cannula 3.00 11/23/17 20:00 97.7 81 20 114/59 (77) 100 11/23/17 20:00 81 11/23/17 19:00 99 Nasal Cannula 4.00 11/23/17 18:00 72 11/23/17 16:00 98.9 66 27 114/57 (76) 98 11/23/17 16:00 66 11/23/17 14:00 69 11/23/17 12:00 98.7 70 24 109/55 (73) 99 11/23/17 12:00 70 I/O 11/23/17 11/23/17 11/23/17 11/24/17 11/24/17 11/24/17 07:00 15:00 23:00 07:00 15:00 23:00 Intake Total 300 ml 400 ml 1715 ml 720 ml Output Total 780 ml 950 ml 1220 ml Balance -480 ml 400 ml 765 ml -500 ml Intake Oral 300 ml 1440 ml 720 ml IV Total 400 ml 275 ml Output Urine Total 780 ml 950 ml 1220 ml # Bowel Movements 1 1 1 Result Diagram: 11/24/17 0235 11/24/17 0235 Other Results Laboratory Tests Test 11/22/17 05:19 11/23/17 10:25 11/24/17 02:35 White Blood Count 33.5 TH/MM3 43.0 TH/MM3 39.4 TH/MM3 Red Blood Count 2.96 MIL/MM3 3.90 MIL/MM3 2.99 MIL/MM3 Hemoglobin 8.1 GM/DL 10.7 GM/DL 8.3 GM/DL Hematocrit 25.0 % 34.0 % 25.7 % Mean Corpuscular Volume 84.5 FL 87.3 FL 85.9 FL Mean Corpuscular Hemoglobin 27.3 PG 27.5 PG 27.7 PG Mean Corpuscular Hemoglobin Concent 32.3 % 31.5 % 32.2 % Red Cell Distribution Width 16.2 % 17.3 % 16.6 % Platelet Count 160 TH/MM3 254 TH/MM3 187 TH/MM3 Mean Platelet Volume 9.1 FL 9.5 FL 9.3 FL Blood Urea Nitrogen 17 MG/DL 22 MG/DL 21 MG/DL Creatinine 0.49 MG/DL 0.66 MG/DL 0.61 MG/DL Random Glucose 156 MG/DL 167 MG/DL 160 MG/DL Calcium Level 8.2 MG/DL 8.9 MG/DL 8.6 MG/DL Magnesium Level 2.2 MG/DL 2.2 MG/DL 1.9 MG/DL Sodium Level 143 MEQ/L 143 MEQ/L 146 MEQ/L Potassium Level 2.4 MEQ/L 2.6 MEQ/L 2.5 MEQ/L Chloride Level 106 MEQ/L 105 MEQ/L 109 MEQ/L Carbon Dioxide Level 28.0 MEQ/L 30.2 MEQ/L 28.1 MEQ/L Anion Gap 9 MEQ/L 8 MEQ/L 9 MEQ/L Estimat Glomerular Filtration Rate 179 ML/MIN 127 ML/MIN 139 ML/MIN Neutrophils (%) (Auto) 93.1 % 90.8 % Lymphocytes (%) (Auto) 3.0 % 2.8 % Monocytes (%) (Auto) 3.7 % 6.3 % Eosinophils (%) (Auto) 0.0 % 0.0 % Basophils (%) (Auto) 0.2 % 0.1 % Neutrophils # (Auto) 40.1 TH/MM3 35.8 TH/MM3 Lymphocytes # (Auto) 1.3 TH/MM3 1.1 TH/MM3 Monocytes # (Auto) 1.6 TH/MM3 2.5 TH/MM3 Eosinophils # (Auto) 0.0 TH/MM3 0.0 TH/MM3 Basophils # (Auto) 0.1 TH/MM3 0.0 TH/MM3 CBC Comment AUTO DIFF AUTO DIFF Differential Total Cells Counted 100 100 Neutrophils % (Manual) 89 % 93 % Band Neutrophils % 3 % Lymphocytes % 4 % 3 % Monocytes % 4 % 4 % Neutrophils # (Manual) 39.6 TH/MM3 36.6 TH/MM3 Differential Comment FINAL DIFF MANUAL FINAL DIFF MANUAL Platelet Estimate NORMAL NORMAL Platelet Morphology Comment NORMAL NORMAL Ovalocytes 1+ 1+ Acanthocytes 1+ Total Protein 5.2 GM/DL 4.2 GM/DL Albumin 2.1 GM/DL 1.7 GM/DL Phosphorus Level 2.6 MG/DL 2.3 MG/DL Alkaline Phosphatase 443 U/L 355 U/L Aspartate Amino Transf (AST/SGOT) 129 U/L 107 U/L Alanine Aminotransferase (ALT/SGPT) 105 U/L 116 U/L Total Bilirubin 1.2 MG/DL 1.0 MG/DL Hemoglobin A1c 5.1 % Free Thyroxine 0.84 NG/DL Thyroid Stimulating Hormone 3rd Gen 0.768 uIU/ML Toxic Granulation 1+ Imaging Last Impressions Chest X-Ray 11/24/17 0600 Signed Impressions: Service Date/Time: Friday, November 24, 2017 03:30 - CONCLUSION: Considerable improvement but residual bilateral infiltrates. Lalo Zavala Jr., MD Chest CT 11/20/17 0000 Signed Impressions: Service Date/Time: Monday, November 20, 2017 10:54 - CONCLUSION: Increasing coarse interstitial changes in both lungs with small bilateral pleural effusions. Interstitial pattern in the base is moving towards it honeycomb pattern. Hernando Rodrigez MD FACR Abdomen Ultrasound 11/11/17 0000 Signed Impressions: Service Date/Time: Saturday, November 11, 2017 14:19 - CONCLUSION: Trace ascites in the abdomen. Keegan Almaraz MD Abdomen/Pelvis CT 11/09/17 0000 Signed Impressions: Service Date/Time: Friday, November 10, 2017 11:22 - CONCLUSION: Increasing edema in the cecum and terminal ileum of uncertain etiology. Increasing stool in the sigmoid colon Enlarging right inguinal hernia Slight increase in amount of ascites. Hernando Rodrigez MD FACR Objective Remarks GENERAL: Awake and alert oriented 1-2 talkative-- somewhat cooperative --not wearing his oxygen correctly-- very thin frail appearing SKIN: Warm and dry. HEAD: Atraumatic. Normocephalic. EYES: Pupils equal and round. No scleral icterus. No injection or drainage. ENT: No nasal bleeding or discharge. Mucous membranes pink and moist. NECK: Trachea midline. No JVD. CARDIOVASCULAR: Regular rate and rhythm. S1-S2 no S3 or S4 RESPIRATORY: No accessory muscle use. Clear to auscultation. Breath sounds equal bilaterally. Decreased breath sounds bilaterally GASTROINTESTINAL: Abdomen soft, non-tender, nondistended. Hepatic and splenic margins not palpable. Abdomen is dressed MUSCULOSKELETAL: Extremities without clubbing, cyanosis, or edema. No obvious deformities. NEUROLOGICAL: Awake and alert. No obvious cranial nerve deficits. Motor grossly within normal limits. 4 out of 5 muscle strength in the arms and legs. Normal speech. PSYCHIATRIC: INAppropriate mood and affect; insight and judgment ABnormal. Medications and IVs Current Medications Piperacillin Sod/ Tazobactam Sod 100 ml @ 200 mls/hr ONCE STAT IV Last administered on 11/09/17 12:45; Start 11/09/17 at 12:25; Stop 11/09/17 at 12:54; Status DC Vancomycin HCl 1000 mg/Sodium Chloride 250 ml @ 250 mls/hr ONCE STAT IV Last administered on 11/09/17 13:31; Start 11/09/17 at 12:25; Stop 11/09/17 at 13:24; Status DC Sodium Chloride 1,000 ml @ 1,000 mls/hr Q1H ONCE IV Last administered on 12:38; Start 11/09/17 at 12:25; Stop 11/09/17 at 13:24; Status DC Sodium Chloride 800 ml @ 1,000 mls/hr Q48M ONCE IV Last administered on 12:38; Start 11/09/17 at 12:25; Stop 11/09/17 at 13:12; Status DC Potassium Chloride 100 ml @ 100 mls/hr Q1H IV Last administered on 11/09/17at 18 :35; Start 11/09/17 at 14:00; Stop 11/09/17 at 16:59; Status DC Potassium Chloride (KCl) 40 meq ONCE ONCE PO Last administered on 11/09/17 14: 19; Start 11/09/17 at 14:00; Stop 11/09/17 at 14:10; Status DC Sodium Chloride 1,000 ml @ 999 mls/hr BOLUS ONCE IV Last administered on at 14:08; Start 11/09/17 at 14:15; Stop 11/09/17 at 15:15; Status DC Sodium Chloride 1,000 ml @ 150 mls/hr Q6H40M IV Last administered on 11/09/17at 15:21; Start 11/09/17 at 14:36; Stop 11/09/17 at 17:24; Status DC Sodium Chloride (NS Flush) 2 ml UNSCH PRN IV FLUSH FLUSH AFTER USING IV ACCESS ; Start 11/09/17 at 14:45 Sodium Chloride (NS Flush) 2 ml BID IV FLUSH Last administered on 11/24/17at 08: 11; Start 11/09/17 at 21:00 Famotidine (Pepcid) 20 mg Q12HR PO Last administered on 11/24/17at 08:08; Start 11/09/17 at 21:00 Albuterol/ Ipratropium (Duoneb Neb) 1 ampule Q4HR NEB PRN NEB WHEEZING; Start 11/09/17 at 15:00; Stop 11/10/17 at 21:22; Status DC Enoxaparin Sodium (Lovenox Inj) 40 mg Q24H SQ Last administered on 11/10/17at 16: 51; Start 11/09/17 at 15:00; Stop 11/10/17 at 17:22; Status DC Vancomycin HCl 1000 mg/Sodium Chloride 250 ml @ 250 mls/hr Q18H IV Last administered on 11/14/17at 21:00; Start 11/10/17 at 08:00; Stop 11/14/17 at 23:45; Status DC Pharmacy Profile Note 0 ml @ 0 mls/hr UNSCH OTHER ; Start 11/09/17 at 15:00; Status Cancel Piperacillin Sod/ Tazobactam Sod 100 ml @ 200 mls/hr Q6H IV Last administered on 11/15/17at 20:06; Start 11/09/17 at 20:00; Stop 11/15/17 at 21:00; Status DC Miscellaneous Information ([facility] [place] [facility] Information) 1 [id number] Last administered on 11/10/17at 20:47; Start 11/09/17 at 14:45 Chlorhexidine Gluconate (Chlorhexidine 2% Cloth) Taper DAILY@04 TOP Last administered on 11/12/17at 04:00; Start 11/10/17 at 04:00; Stop 11/06/18 at 03:59 Chlorhexidine Gluconate (Chlorhexidine 2% Cloth) 3 pack UNSCH PRN TOP HYGIENIC CARE; Start 11/09/17 at 14:45 Potassium Chloride 100 ml @ 50 mls/hr Q2H PRN IV For Potassium 2.8 - 3.2 mEq/ L Last administered on 11/15/17at 11:28; Start 11/09/17 at 17:30; Stop 11/21/17 at 08:33; Status DC Potassium Chloride 100 ml @ 50 mls/hr Q2H PRN IV For Potassium 2.8 - 3.2 mEq/ L Last administered on 11/20/17at 05:48; Start 11/09/17 at 17:30; Stop 11/21/17 at 08:33; Status DC Potassium Chloride 100 ml @ 25 mls/hr UNSCH PRN IV For Potassium 3.3 - 3.5 mEq /L; Start 11/09/17 at 17:30; Stop 11/21/17 at 08:33; Status DC Potassium Chloride 100 ml @ 50 mls/hr Q2H PRN IV For Potassium 3.3 - 3.5 mEq/ L Last administered on 11/20/17at 23:53; Start 11/09/17 at 17:30; Stop 11/21/17 at 08:33; Status DC Magnesium Sulfate 4 gm/Sodium Chloride 100 ml @ 50 mls/hr UNSCH PRN IV For Magnesium 0.9 - 1.1 mg/dL; Start 11/09/17 at 17:30; Stop 11/21/17 at 08:33; Status DC Magnesium Oxide (Mag-Ox) 800 mg UNSCH PRN PO For Magnesium 1.2 - 1.6 mg/dL; Start 11/09/17 at 17:30; Stop 11/09/17 at 17:41; Status DC Magnesium Sulfate 2 gm/Sodium Chloride 100 ml @ 50 mls/hr UNSCH PRN IV For Magnesium 1.2 - 1.6 mg/dL Last administered on 11/12/17at 08:07; Start 11/09/17 at 17:30; Stop 11/21/17 at 08:33; Status DC Potassium Phosphate (K-Phos) 2,000 mg Q4H PRN PO For Phosphorus < 2.5 mg/dL; Start 11/09/17 at 17:30; Stop 11/21/17 at 08:33; Status DC Sodium Phosphate 30 mmol/Sodium Chloride 250 ml @ 42 mls/hr UNSCH PRN IV For Phosphorus < 2.5 mg/dL; Start 11/09/17 at 17:30; Stop 11/21/17 at 08:33; Status DC Potassium Phosphate (K-Phos) 2,000 mg UNSCH PRN PO/TUBE SEE LABEL COMMENTS; Start 11/09/17 at 17:30; Stop 11/21/17 at 08:33; Status DC Potassium Phosphate 30 mmol/ Sodium Chloride 260 ml @ 42 mls/hr UNSCH PRN IV SEE LABEL COMMENTS; Start 11/09/17 at 17:30; Stop 11/21/17 at 08:33; Status DC Albumin Human 250 ml @ 250 mls/hr Q6HR IV Last administered on 11/10/17at 04:38 ; Start 11/09/17 at 18:00; Stop 11/10/17 at 09:00; Status DC Dextrose/Lactated Ringer's 1,000 ml @ 150 mls/hr Q6H40M IV Last administered on 11/10/17at 16:51; Start 11/09/17 at 17:30; Stop 11/10/17 at 19:11; Status DC Lactated Ringer's 1,000 ml @ 999 mls/hr BOLUS ONCE IV Last administered on 11/09/17at 18:14; Start 11/09/17 at 17:45; Stop 11/09/17 at 18:46; Status DC Vancomycin HCl 800 mg/Sodium Chloride 258 ml @ 250 mls/hr ONCE ONCE IV ; Start 11/09/17 at 18:13; Stop 11/09/17 at 19:14; Status Cancel Hydrocortisone Sodium Succinate (SoluCORTEF INJ) 50 mg Q6HR IV PUSH Last administered on 11/13/17at 17:01; Start 11/09/17 at 18:00; Stop 11/13/17 at 19:55; Status DC Phenylephrine HCl 40 mg/Dextrose 500 ml @ 30 mls/hr TITRATE PRN IV Blood Pressure Management Last administered on 11/09/17at 20:53; Start 11/09/17 at 20:45 ; Stop 11/10/17 at 03:05; Status DC Terbutaline Sulfate (Brethine Inj) 1 mg UNSCH PRN SQ FOR EXTRAVASATION PROTOCOL ; Start 11/09/17 at 20:45 Doxycycline Hyclate 100 mg/ Sodium Chloride 100 ml @ 100 mls/hr Q12H IV Last administered on 11/19/17at 23:20; Start 11/10/17 at 00:00; Stop 11/20/17 at 07:16 ; Status DC Metronidazole 100 ml @ 100 mls/hr Q8H IV Last administered on 11/17/17at 01:25 ; Start 11/10/17 at 01:00; Stop 11/17/17 at 07:21; Status DC Acetaminophen/ Hydrocodone Bitart ([place] 7.5-325 Mg) 1 tab Q4H PRN PO PAIN 1- 5 Last administered on 11/23/17at 21:27; Start 11/09/17 at 23:45 Norepinephrine Bitartrate 250 ml @ 7.5 mls/hr TITRATE PRN IV Maintain MAP > 65 mmHg Last administered on 11/11/17 02:26; Start 11/10/17 at 03:15; Stop at 10:12; Status DC Diatrizoate Meglum/ Diatrizoate Sod ( Gastroview Liq) 18 ml ONCE ONCE PO Last administered on 11/10/17 09:12; Start 11/10/17 at 07:00; Stop 11/10/17 at 07: 01; Status DC Morphine Sulfate (Morphine Inj) 4 mg Q3H PRN IV PUSH pain scale 6-10 Last administered on 11/20/17at 23:53; Start 11/10/17 at 07:15; Stop 11/21/17 at 08:33 ; Status DC Midazolam HCl (Versed Inj) 5 mg STK-MED ONCE .ROUTE Last administered on at 09:12; Start 11/10/17 at 07:43; Stop 11/10/17 at 07:44; Status DC Lidocaine HCl (Xylocaine 2% Inj) 100 mg STK-MED ONCE .ROUTE ; Start 11/10/17 at 07:53; Stop 11/10/17 at 07:54; Status DC Lidocaine HCl (Xylocaine 2% Inj) 100 mg STK-MED ONCE .ROUTE ; Start 11/10/17 at 08:06; Stop 11/10/17 at 08:07; Status DC Pharmacy Profile Note 0 ml @ 0 mls/hr UNSCH OTHER ; Start 11/10/17 at 08:45; Status UNV Vancomycin HCl 850 mg/Sodium Chloride 258.5 ml @ 250 mls/hr Q12H IV ; Start 11/10/17 at 08:45; Status UNV Miscellaneous Information ([facility] [place] [facility] Ordered Lab Info) SPECIFIC LAB TO BE DRAWN:VANCOMY... ONCE ONCE .XX Last administered on 11/11/17at 19:45; Start 11/11 at 19:45; Stop 11/11/17 at 19:46; Status DC Nystatin (Mycostatin Liq) 5 ml QID SWISH-SWAL Last administered on 11/24/17at 08:08; Start 11/10/17 at 13:00 Lidocaine/ Epinephrine (Xylocaine-Epi 1%-1:100,000 Inj) 10 ml ONCE ONCE INFIL ; Start 11/10/17 at 18:45; Stop 11/10/17 at 18:46; Status DC Midazolam HCl (Versed Inj) 2 mg ONCE ONCE IV PUSH Last administered on at 19:11; Start 11/10/17 at 18:45; Stop 11/10/17 at 18:46; Status DC Morphine Sulfate (Morphine Inj) 2 mg ONCE ONCE IV PUSH Last administered on 11/10/17at 19:11; Start 11/10/17 at 18:45; Stop 11/10/17 at 18:46; Status DC Dextrose/Lactated Ringer's 1,000 ml @ 100 mls/hr Q10H IV Last administered on 11/14/17at 03:29; Start 11/10/17 at 19:00; Stop 11/14/17 at 10:22; Status DC Midazolam HCl (Versed Inj) 2 mg ONCE ONCE IV PUSH ; Start 11/10/17 at 19:45; Stop 11/10/17 at 19:46; Status DC Morphine Sulfate (Morphine Inj) 2 mg ONCE ONCE IV PUSH ; Start 11/10/17 at 19:45 ; Stop 11/10/17 at 19:46; Status DC Phytonadione 10 mg/Sodium Chloride 51 ml @ 102 mls/hr ONCE ONCE IV Last administered on 11/10/17 20:47; Start 11/10/17 at 21:00; Stop 11/10/17 at 21:29; Status DC Albuterol/ Ipratropium (Duoneb Neb) 1 ampule Q6HR NEB NEB Last administered on 11/14/17 19:53; Start 11/10/17 at 22:00; Stop 11/14/17 at 21:56; Status DC Sodium Chloride (Sodium Chloride 3% Neb) 2 ml Q6HR NEB NEB Last administered on 11/15/17at 16:19; Start 11/10/17 at 22:00; Stop 11/15/17 at 21:59; Status DC Albuterol Sulfate (Albuterol Neb) 2.5 mg Q2HR NEB PRN NEB Dyspnea Last administered on 11/23/17at 02:56; Start 11/10/17 at 21:30 Furosemide (Lasix Inj) 20 mg Q12HR IV PUSH Last administered on 11/13/17at 20:48 ; Start 11/11/17 at 11:15; Stop 11/14/17 at 09:36; Status DC Sodium Chloride 250 ml @ 15 mls/hr ONCE ONCE IV Last administered on at 12:27; Start 11/11/17 at 11:30; Stop 11/12/17 at 04:09; Status DC Magnesium Sulfate/ Dextrose 200 ml @ As Directed STK-MED ONCE .ROUTE ; Start at 08:03; Stop 11/12/17 at 08:04; Status DC Miscellaneous Information ([facility] [place] [facility] Ordered Lab Info) SPECIFIC LAB TO BE ... ONCE ONCE .XX Last administered on 11/14/17at 21:00; Start 11/14/17 at 19: 45; Stop 11/14/17 at 19:46; Status DC Hydrocortisone Sodium Succinate (SoluCORTEF INJ) 40 mg Q12H IV PUSH Last administered on 11/15/17at 05:01; Start 11/14/17 at 06:00; Stop 11/15/17 at 10:21; Status DC Alprazolam (Xanax) 0.5 mg Q8H PRN PO ANXIETY Last administered on 11/22/17at 08: 02; Start 11/13/17 at 20:00 Furosemide (Lasix Inj) 40 mg Q12HR IV Last administered on 11/23/17at 09:35; Start 11/14/17 at 10:00; Stop 11/23/17 at 15:40; Status DC Albuterol/ Ipratropium (Duoneb Neb) 1 ampule Q6HR NEB NEB Last administered on 11/18/17at 21:17; Start 11/14/17 at 23:00; Stop 11/18/17 at 22:59; Status DC Vancomycin HCl 1250 mg/Sodium Chloride 262.5 ml @ 250 mls/hr Q12H IV Last administered on 11/15/17at 06:00; Start 11/15/17 at 06:00; Stop 11/15/17 at 14:27; Status DC Miscellaneous Information ([facility] [place] [facility] Ordered Lab Info) SPECIFIC LAB TO BE DRAWN:VANCO TROUGH DATE TO BE DR... ONCE ONCE .XX ; Start 11/17/17 at 05:45; Stop 11/17/17 at 05:46; Status Cancel Dextrose 1,000 ml @ 25 mls/hr Q24H IV Last administered on 11/22/17at 06:00; Start 11/15/17 at 10:00 Fluconazole/ Sodium Chloride 200 ml @ 100 mls/hr ONCE ONCE IV Last administered on 11/15/17at 11:13; Start 11/15/17 at 10:00; Stop 11/15/17 at 11:59; Status DC Fluconazole/ Sodium Chloride 100 ml @ 100 mls/hr Q24H IV Last administered on 11/23/17at 12:22; Start 11/16/17 at 11:00 Hydrocortisone Sodium Succinate (SoluCORTEF INJ) 30 mg Taper Q12H IV PUSH Last administered on 11/16/17at 06:00; Start 11/15/17 at 18:00; Stop 11/16/17 at 07:17 ; Status DC Vancomycin HCl 1500 mg/Sodium Chloride 515 ml @ 250 mls/hr Q12H IV Last administered on 11/16/17at 06:00; Start 11/15/17 at 18:00; Stop 11/16/17 at 09:06 ; Status DC Potassium Chloride (KCl) 40 meq NOW ONCE PO Last administered on 11/15/17at 23: 00; Start 11/15/17 at 23:00; Stop 11/15/17 at 23:01; Status DC Potassium Chloride (KCl Powder) 40 meq Q2H PO Last administered on 11/16/17at 08 :43; Start 11/16/17 at 04:15; Stop 11/16/17 at 08:16; Status DC Hydrocortisone Sodium Succinate (SoluCORTEF INJ) 10 mg Taper Q12H IV PUSH Last administered on 11/19/17at 05:35; Start 11/16/17 at 18:00; Stop 11/19/17 at 17:59 ; Status DC Acetazolamide Sodium (Diamox Inj) 250 mg ONCE ONCE IV PUSH Last administered on 11/17/17at 07:54; Start 11/17/17 at 07:30; Stop 11/17/17 at 07:31; Status DC Acetazolamide Sodium (Diamox Inj) 500 mg DAILY IV PUSH Last administered on at 11:31; Start 11/19/17 at 11:15; Stop 11/21/17 at 06:05; Status DC Potassium Bicarb/ Potassium Chloride (K-Lyte Cl Eff) 50 meq ONCE ONCE PO Last administered on 11/20/17at 09:46; Start 11/20/17 at 07:30; Stop 11/20/17 at 07:31; Status DC Methylprednisolone Sodium Succinate (SoluMEDROL INJ) 40 mg Q8HR IV PUSH Last administered on 11/24/17at 05:45; Start 11/20/17 at 22:00 Acetazolamide Sodium (Diamox Inj) 500 mg Q8H IV PUSH Last administered on at 08:08; Start 11/21/17 at 09:00 Potassium Bicarb/ Potassium Chloride (K-Lyte Cl Eff) 25 meq ONCE ONCE PO Last administered on 11/21/17at 09:46; Start 11/21/17 at 08:45; Stop 11/21/17 at 08:46; Status DC Potassium Bicarb/ Potassium Chloride (K-Lyte Cl Eff) 25 meq DAILY PO Last administered on 11/23/17at 09:35; Start 11/21/17 at 09:00; Stop 11/23/17 at 15:40 ; Status DC Magnesium Sulfate/ Dextrose 100 ml @ 100 mls/hr Q1H IV Last administered on at 12:41; Start 11/21/17 at 09:30; Stop 11/21/17 at 11:29; Status DC Potassium Chloride 100 ml @ 50 mls/hr ONCE ONCE IV Last administered on at 08:04; Start 11/22/17 at 07:00; Stop 11/22/17 at 08:59; Status DC Potassium Bicarb/ Potassium Chloride (K-Lyte Cl Eff) 50 meq ONCE ONCE PO Last administered on 11/22/17at 08:04; Start 11/22/17 at 07:00; Stop 11/22/17 at 07:01; Status DC Potassium Bicarb/ Potassium Chloride (K-Lyte Cl Eff) 100 meq ONCE ONCE PO ; Start 11/22/17 at 08:30; Stop 11/22/17 at 08:31; Status DC Potassium Bicarb/ Potassium Chloride (K-Lyte Cl Eff) 50 meq BID PO Last administered on 11/24/17at 08:09; Start 11/23/17 at 21:00 Furosemide (Lasix) 40 mg BID@,18 PO Last administered on 11/24/17at 08:08; Start 11/23/17 at 18:00; Status Future Hold Potassium Chloride 100 ml @ 50 mls/hr Q2H IV Last administered on 11/24/17at 08 :02; Start 11/24/17 at 05:15; Stop 11/24/17 at 11:14 Potassium Chloride (KCl) 40 meq ONCE ONCE PO Last administered on 11/24/17at 05 :44; Start 11/24/17 at 05:15; Stop 11/24/17 at 05:17; Status DC Potassium Chloride 100 ml @ 50 mls/hr Q2H IV ; Start 11/24/17 at 12:00; Stop at 17:59 A/P Problem List: (1) Tobacco use ICD Code: Z72.0 - Tobacco use Status: Acute (2) History of resection of terminal ileum ICD Code: Z98.890 - Other specified postprocedural states; Z90.49 - Acquired absence of other specified parts of digestive tract Status: Acute (3) Tobacco abuse ICD Code: Z72.0 - Tobacco use Status: Acute (4) Wound dehiscence ICD Code: T81.30XA - Disruption of wound, unspecified, initial encounter; Z90.49 - Acquired absence of other specified parts of digestive tract Status: Acute (5) Crohns disease ICD Code: K50.90 - Crohn's disease, unspecified, without complications Status: Acute (6) Hypokalemia ICD Code: E87.6 - Hypokalemia Status: Acute (7) FEN Status: Acute Assessment and Plan acute hypoxic respiratory failure -Pulmonology following, -ARDS -continue diuretics; echo showing EF of 50% 1 month ago -IV Diflucan for fungal coverage given extensive steroid course -solumedrol - taper course -Remains 4L BY NC WHEN HE WEARS IT- DESATS INTO THE 70S WHEN IT IS OFF Status post colonic resection with wound dehiscence -Dressing changes per colorectal surgery -P.o. 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
[2017-11-24] MEDS: FLUCONAZOLE 200 MG PREMIX BAG 100 ML IV SCH (11:41)
--- NOTE | 2017-11-24 17:39 | HHI.PR ---
Subjective Remarks 52 YOWM with Crohn's dis, Cirrohosis, s/p TIPS, abd surgery,ARDS Breathing better Weaned to 2LNC Feels better Tolerates PO Somewhat confused CXR much improved Objective Vital Signs Vital Signs Date Time Temp Pulse Resp B/P (MAP) Pulse Ox O2 Delivery O2 Flow Rate FiO2 11/24/17 14:00 68 11/24/17 12:00 64 11/24/17 12:00 98.8 64 10 111/58 (75) 97 11/24/17 10:53 98 Nasal Cannula 2.00 11/24/17 10:00 66 11/24/17 08:00 98.1 70 9 113/55 (74) 96 11/24/17 08:00 70 11/24/17 07:00 99 Nasal Cannula 2.00 11/24/17 06:00 63 11/24/17 05:00 97 Nasal Cannula 2.00 11/24/17 04:00 97.2 64 8 109/57 (74) 98 11/24/17 04:00 64 11/24/17 02:00 65 11/24/17 00:00 97.7 66 10 121/57 (78) 97 11/24/17 00:00 68 11/23/17 22:00 67 11/23/17 21:07 96 Nasal Cannula 4.00 11/23/17 20:00 97 Nasal Cannula 3.00 11/23/17 20:00 97.7 81 20 114/59 (77) 100 11/23/17 20:00 81 11/23/17 19:00 99 Nasal Cannula 4.00 11/23/17 18:00 72 I/O 11/23/17 11/23/17 11/23/17 11/24/17 11/24/17 11/24/17 07:00 15:00 23:00 07:00 15:00 23:00 Intake Total 300 ml 400 ml 1715 ml 720 ml Output Total 780 ml 950 ml 1220 ml Balance -480 ml 400 ml 765 ml -500 ml Intake Oral 300 ml 1440 ml 720 ml IV Total 400 ml 275 ml Output Urine Total 780 ml 950 ml 1220 ml # Bowel Movements 1 1 1 Result Diagram: 11/24/1723411/24/17234 Objective Remarks GENERAL: MBMNWM, mild sob SKIN: Warm and dry. HEAD: Normocephalic. EYES: No scleral icterus. No injection or drainage. NECK: Supple, trachea midline. No JVD or lymphadenopathy. CARDIOVASCULAR: Regular rate and rhythm without murmurs, gallops, or rubs. RESPIRATORY: Breath sounds equal bilaterally. No accessory muscle use. GASTROINTESTINAL: Abdomen soft, non-tender, nondistended. Abd wound dressed MUSCULOSKELETAL: No cyanosis, or edema. BACK: Nontender without obvious deformity. No CVA tenderness. A/P Assessment and Plan IMPRESSION: 1. Bilateral lung infiltrate with interstitial pattern and appearing fibrotic changes, possibly has acute respiratory distress syndrome and also possible underlying interstitial lung disease. 2. History of nicotine use. 3. Cirrhosis of the liver, status post transjugular intrahepatic portosystemic shunt procedure. 4. Crohn's disease. PLAN Supplement 02 with NC Keep sat 90-94% Decrease Solumedrol Cont Abx Replace K+ Zach Mas MD November 24, 2017 17:39
[2017-11-25] VITALS (12 sets, daily range): BP systolic 110–136; BP diastolic 55–62; PULSE 51–89; RESP 12–18; TEMP 97.5–98.5; O2SAT 96–100
[2017-11-25] MEDS: ACETAMINOPHEN/HYDROcodone 325 MG/7.5 MG TAB PO PRN ×4 (00:16→22:21)
[2017-11-25] MEDS: CHLORHEXIDINE GLUCONATE 2 % 1 PACK (2 CLOTHS) TOP SCH ×2 (01:45→22:23)
[2017-11-25] MEDS: DEXTROSE 5% IN WATE 1000ML INJ 1,000 ML IV SCH (05:09)
[2017-11-25 06:16] LABS: ALBUMIN 1.9 GM/DL (3.4-5.0); ALKALINE PHOSPHATASE 359 U/L (45-117); ALT (GPT) 146 U/L (12-78); AST (GOT) 97 U/L (15-37); BICARBONATE 19.1 MEQ/L (21.0-32.0); BLOOD UREA NITROGEN 21 MG/DL (7-18); CALCIUM 9.2 MG/DL (8.5-10.1); CHLORIDE 118 MEQ/L (98-107); GLOMERULAR FILTRATION RATE 118 ML/MIN (>89); GLUCOSE,RANDOM 148 MG/DL (74-106); MAGNESIUM 2.2 MG/DL (1.5-2.5); PHOSPHORUS 2.8 MG/DL (2.5-4.9); SODIUM (NA) 145 MEQ/L (136-145); TOTAL BILIRUBIN ADULT 1.3 MG/DL (0.2-1.0); TOTAL PROTEIN 4.7 GM/DL (6.4-8.2)
[2017-11-25] MEDS: SODIUM CHLORIDE 0.9% FLUSH 10 ML FLUSH IV FLUSH SCH ×2 (07:22→22:20)
[2017-11-25] MEDS: methylPREDNISolone SOD SUCC 40 MG/1 ML VIAL IV PUSH SCH ×2 (07:24→22:20)
[2017-11-25] MEDS: FAMOTIDINE 20 MG TAB PO SCH ×2 (07:25→22:21)
[2017-11-25] MEDS: POTASSIUM CHLORIDE 25 MEQ EFFERVESCENT TAB PO SCH ×2 (07:25→22:21)
[2017-11-25] MEDS: NYSTATIN SUSP 500,000 U/5 ML CUP SWISH-SWAL SCH ×4 (07:25→22:21)
--- NOTE | 2017-11-25 08:39 | HHI.PR ---
Subjective Remarks Wound dehiscence, Crohn's disease, cirrhosis, COPD Wants to go home, seems comfortable Objective Vital Signs Date Time Temp Pulse Resp B/P (MAP) Pulse Ox O2 Delivery O2 Flow Rate FiO2 11/25/17 07:46 100 Nasal Cannula 2.00 11/25/17 07:00 100 Nasal Cannula 2.00 11/25/17 06:00 89 11/25/17 04:00 51 11/25/17 04:00 97.9 51 15 114/60 (78) 100 11/25/17 04:00 51 11/25/17 02:00 72 11/25/17 00:00 98.5 72 17 115/55 (75) 99 11/25/17 00:00 67 11/24/17 22:00 67 11/24/17 20:00 97.8 73 17 121/62 (81) 99 11/24/17 20:00 78 11/24/17 19:22 97 Nasal Cannula 2.00 11/24/17 19:00 98 Nasal Cannula 2.00 11/24/17 18:00 73 11/24/17 16:00 69 11/24/17 14:00 68 11/24/17 12:00 64 11/24/17 12:00 98.8 64 10 111/58 (75) 97 11/24/17 10:53 98 Nasal Cannula 2.00 11/24/17 10:00 66 I/O 11/24/17 11/24/17 11/24/17 11/25/17 11/25/17 11/25/17 07:00 15:00 23:00 07:00 15:00 23:00 Intake Total 720 ml 820 ml 840 ml Output Total 1220 ml 850 ml 1200 ml Balance -500 ml -30 ml -360 ml Intake Oral 720 ml 720 ml 840 ml IV Total 100 ml Output Urine Total 1220 ml 850 ml 1200 ml # Voids 1 # Bowel Movements 1 1 0 Result Diagram: 11/24/17 0235 11/25/17 0514 Objective Remarks Wound clean Assessment and Plan Assessment and Plan Wound clean - continue wet-dry Pulmonary status keeping patient in hospital appreciate [employer]'s assistance Holli Lenz MD November 25, 2017 08:39
--- NOTE | 2017-11-25 11:26 | HHI.PR ---
Subjective Remarks 11/09: 52-year-old male with a medical history significant for Crohn's disease who underwent E lap with terminal ileum/ascending colon resection by Dr. Lane on 10/19/17. Patient was subsequently discharged on 10/31. He presented back to the ER on 11/04 with abdominal pain underwent labs and CAT scan and was subsequently discharged from the ER and followed up with Dr. Lane. He did develop some wound dehiscence and the upper part of his incision site and some ha were removed by Dr. Lane. Patient presented back to the ER on 11/09 as he was not feeling well with generalized weakness and abdominal pain and was noted to be hypotensive in the ER with a leukocytosis. He received 2 L normal saline bolus and was given empiric Zosyn for antibiotic coverage. Dr. Pryor spoke with Dr. Lane. Patient was accepted for admission by critical care medicine service and is being admitted to the ICU. When I evaluated the patient he was laying in the ER stretcher with systolic blood pressure in the 90s having received 2 L normal saline bolus. He was complaining of pain all over at the time. He denied any shortness of breath nausea or vomiting currently. He denied any melena or rectal bleeding. Denies any fever or chills. He did have slight dehiscence of his upper abdominal incision site with foul smell but minimal discharge. History was obtained by reviewing records and discussion with the ER physician. Patient is not a very good historian. He also reportedly has a history of cirrhosis and has had a TIPS procedure in June 2017. He has been on diuretics at home. 11/10: Remains hypotensive last night despite fluid boluses hence was started on Levophed for pressor support. Complains of abdominal pain this morning. Denies any shortness of breath. Evaluated by ID and awaiting CT abdomen pelvis this morning. On Levophed 9 mics per minute. 11/11: Patient had right-sided anterior chest tube placed yesterday for pneumothorax with resolution of pneumothorax. Right upper lobe collapse seems to have opened up on x-ray today. Patient appears to be breathing comfortably but remains confused. Remains on Levophed. 11/12: Resting comfortably in bed on nasal cannula. Off pressors. Dislodged pigtail catheter overnight however chest x-ray this morning does not show any pneumothorax. 05/07: Breathing comfortably with supplemental oxygen. Acceptably strong cough. White count remains elevated at 28,000. No specific complaints. Remains well hydrated. 11/14: Clearly more distress from yesterday. Increased FiO2 requirements. WBC 40 ,000. Weight is up a lot but little evidence of peripheral edema. Lung function not improving with aggressive diuresis. 11/15: somewhat improved from yesterday. off norepinephrine. wbc downtrended slightly. wound culture growing hira, and given patient's chronic immunosuppressed course, fungal etiologies would be in the differential. net - 900cc/24h. cr stable. remains on NRB and high fio2 requirements, although suspect more ARDS than fluid overload as a cause for his hypoxemia. ROS otherwise negative and subjectively patient feels better today compared with yesterday. abdominal pain mild and persistent. 11/16: very slow improvements. severe ARDS continues and remains on NRB, but patient subjectively feels better. cxr this AM with persistence of bilateral diffuse airspace disease. net -1L/24h. ROS otherwise negative. afebrile now s/p full course zosyn. 11/17: continues to subjectively feel better. slower to desaturate with activity. still hypoxic requiring high fio2. afebrile. wbc slowly downtrending. ROS otherwise negative. 11/18: Continues to require a nonrebreathing mask and radiographic appearance consistent with resolving ARDS. 11/19: We will attempt to transition to a high flow nasal cannula to facilitate weaning FiO2. A contraction alkalosis is developing which has expedited his potassium wasting. Will attempt to reverse with Diamox. 11/20: clinically stable. alternating between high flow NC and NRB. wbc uptrending, but afebrile. 5-15 Nursing reports that the patient had low potassium this morning. Has not had to push any IV pain medication since her shift this morning. Patient himself says that the potassium intravenously rivera really bad and does not want to do that again. Is asking when he can be discharged, says that he has family arranging stuff for him at home. 5-16 PATIENT IS ON LESS OXYGEN ONLY 10 LITERS OF HIGH FLOW NOW DW RN AND PT NEEDS PT AND OT KEEPS TAKING OXYGEN OFF SATS IN THE 80S WHEN OFF NO NEW COMPLAINTS 5-17 THREATENING TO GO AMA ONLY ON 4L BY NC BUT DESATS INTO THE 70S IF OFF OXYGEN DW RN AND PT PATIENT IS CONFUSED LABS PENDING? DID PATIENT REFUSE? -18 STILL HAVING SEVERE HYPOKALEMIA HOLD LASIX REPLACE POTASSIUM AM LABS DW RN AND PATIENT 5-19 PATIENT STILL REMAINS CONFUSED POTASSIUM IS FINALLY IN NORMAL RANGE DW RN AND PT DOWNGRADE AND TRANSFER TO [facility] NEAR RN STATION INCREASE ACTIVITY BREATHING A LITTLE BETTER Objective Vitals Vital Signs Date Time Temp Pulse Resp B/P (MAP) Pulse Ox O2 Delivery O2 Flow Rate FiO2 11/25/17 07:46 100 Nasal Cannula 2.00 11/25/17 07:00 100 Nasal Cannula 2.00 11/25/17 06:00 89 11/25/17 04:00 51 11/25/17 04:00 97.9 51 15 114/60 (78) 100 11/25/17 04:00 51 11/25/17 02:00 72 11/25/17 00:00 98.5 72 17 115/55 (75) 99 11/25/17 00:00 67 11/24/17 22:00 67 11/24/17 20:00 97.8 73 17 121/62 (81) 99 11/24/17 20:00 78 11/24/17 19:22 97 Nasal Cannula 2.00 11/24/17 19:00 98 Nasal Cannula 2.00 11/24/17 18:00 73 11/24/17 16:00 69 11/24/17 14:00 68 11/24/17 12:00 64 11/24/17 12:00 98.8 64 10 111/58 (75) 97 I/O 11/24/17 11/24/17 11/24/17 11/25/17 11/25/17 11/25/17 07:00 15:00 23:00 07:00 15:00 23:00 Intake Total 720 ml 820 ml 840 ml Output Total 1220 ml 850 ml 1200 ml Balance -500 ml -30 ml -360 ml Intake Oral 720 ml 720 ml 840 ml IV Total 100 ml Output Urine Total 1220 ml 850 ml 1200 ml # Voids 1 # Bowel Movements 1 1 0 Result Diagram: 11/24/17 0235 11/25/17 0514 Other Results Laboratory Tests Test 11/23/17 10:25 11/24/17 02:35 11/25/17 05:14 White Blood Count 43.0 TH/MM3 39.4 TH/MM3 Red Blood Count 3.90 MIL/MM3 2.99 MIL/MM3 Hemoglobin 10.7 GM/DL 8.3 GM/DL Hematocrit 34.0 % 25.7 % Mean Corpuscular Volume 87.3 FL 85.9 FL Mean Corpuscular Hemoglobin 27.5 PG 27.7 PG Mean Corpuscular Hemoglobin Concent 31.5 % 32.2 % Red Cell Distribution Width 17.3 % 16.6 % Platelet Count 254 TH/MM3 187 TH/MM3 Mean Platelet Volume 9.5 FL 9.3 FL Neutrophils (%) (Auto) 93.1 % 90.8 % Lymphocytes (%) (Auto) 3.0 % 2.8 % Monocytes (%) (Auto) 3.7 % 6.3 % Eosinophils (%) (Auto) 0.0 % 0.0 % Basophils (%) (Auto) 0.2 % 0.1 % Neutrophils # (Auto) 40.1 TH/MM3 35.8 TH/MM3 Lymphocytes # (Auto) 1.3 TH/MM3 1.1 TH/MM3 Monocytes # (Auto) 1.6 TH/MM3 2.5 TH/MM3 Eosinophils # (Auto) 0.0 TH/MM3 0.0 TH/MM3 Basophils # (Auto) 0.1 TH/MM3 0.0 TH/MM3 CBC Comment AUTO DIFF AUTO DIFF Differential Total Cells Counted 100 100 Neutrophils % (Manual) 89 % 93 % Band Neutrophils % 3 % Lymphocytes % 4 % 3 % Monocytes % 4 % 4 % Neutrophils # (Manual) 39.6 TH/MM3 36.6 TH/MM3 Differential Comment FINAL DIFF MANUAL FINAL DIFF MANUAL Platelet Estimate NORMAL NORMAL Platelet Morphology Comment NORMAL NORMAL Ovalocytes 1+ 1+ Acanthocytes 1+ Blood Urea Nitrogen 22 MG/DL 21 MG/DL 21 MG/DL Creatinine 0.66 MG/DL 0.61 MG/DL 0.70 MG/DL Random Glucose 167 MG/DL 160 MG/DL 148 MG/DL Total Protein 5.2 GM/DL 4.2 GM/DL 4.7 GM/DL Albumin 2.1 GM/DL 1.7 GM/DL 1.9 GM/DL Calcium Level 8.9 MG/DL 8.6 MG/DL 9.2 MG/DL Phosphorus Level 2.6 MG/DL 2.3 MG/DL 2.8 MG/DL Magnesium Level 2.2 MG/DL 1.9 MG/DL 2.2 MG/DL Alkaline Phosphatase 443 U/L 355 U/L 359 U/L Aspartate Amino Transf (AST/SGOT) 129 U/L 107 U/L 97 U/L Alanine Aminotransferase (ALT/SGPT) 105 U/L 116 U/L 146 U/L Total Bilirubin 1.2 MG/DL 1.0 MG/DL 1.3 MG/DL Sodium Level 143 MEQ/L 146 MEQ/L 145 MEQ/L Potassium Level 2.6 MEQ/L 2.5 MEQ/L 4.3 MEQ/L Chloride Level 105 MEQ/L 109 MEQ/L 118 MEQ/L Carbon Dioxide Level 30.2 MEQ/L 28.1 MEQ/L 19.1 MEQ/L Anion Gap 8 MEQ/L 9 MEQ/L 8 MEQ/L Estimat Glomerular Filtration Rate 127 ML/MIN 139 ML/MIN 118 ML/MIN Hemoglobin A1c 5.1 % Free Thyroxine 0.84 NG/DL Thyroid Stimulating Hormone 3rd Gen 0.768 uIU/ML Toxic Granulation 1+ Imaging Last Impressions Chest X-Ray 11/24/17 0600 Signed Impressions: Service Date/Time: Friday, November 24, 2017 03:30 - CONCLUSION: Considerable improvement but residual bilateral infiltrates. Lalo Zavala Jr., MD Chest CT 11/20/17 0000 Signed Impressions: Service Date/Time: Monday, November 20, 2017 10:54 - CONCLUSION: Increasing coarse interstitial changes in both lungs with small bilateral pleural effusions. Interstitial pattern in the base is moving towards it honeycomb pattern. Hernando Rodrigez MD FACR Abdomen Ultrasound 11/11/17 0000 Signed Impressions: Service Date/Time: Saturday, November 11, 2017 14:19 - CONCLUSION: Trace ascites in the abdomen. Keegan Almaraz MD Abdomen/Pelvis CT 11/09/17 0000 Signed Impressions: Service Date/Time: Friday, November 10, 2017 11:22 - CONCLUSION: Increasing edema in the cecum and terminal ileum of uncertain etiology. Increasing stool in the sigmoid colon Enlarging right inguinal hernia Slight increase in amount of ascites. Hernando Rodrigez MD FACR Objective Remarks GENERAL: Awake and alert oriented 1-2 talkative-- somewhat cooperative --not wearing his oxygen correctly-- very thin frail appearing SKIN: Warm and dry. HEAD: Atraumatic. Normocephalic. EYES: Pupils equal and round. No scleral icterus. No injection or drainage. ENT: No nasal bleeding or discharge. Mucous membranes pink and moist. NECK: Trachea midline. No JVD. CARDIOVASCULAR: Regular rate and rhythm. S1-S2 no S3 or S4 RESPIRATORY: No accessory muscle use. Clear to auscultation. Breath sounds equal bilaterally. Decreased breath sounds bilaterally GASTROINTESTINAL: Abdomen soft, non-tender, nondistended. Hepatic and splenic margins not palpable. Abdomen is dressed MUSCULOSKELETAL: Extremities without clubbing, cyanosis, or edema. No obvious deformities. NEUROLOGICAL: Awake and alert. No obvious cranial nerve deficits. Motor grossly within normal limits. 4 out of 5 muscle strength in the arms and legs. Normal speech. PSYCHIATRIC: INAppropriate mood and affect; insight and judgment ABnormal. Medications and IVs Current Medications Piperacillin Sod/ Tazobactam Sod 100 ml @ 200 mls/hr ONCE STAT IV Last administered on 11/09/17 12:45; Start 11/09/17 at 12:25; Stop 11/09/17 at 12:54; Status DC Vancomycin HCl 1000 mg/Sodium Chloride 250 ml @ 250 mls/hr ONCE STAT IV Last administered on 11/09/17 13:31; Start 11/09/17 at 12:25; Stop 11/09/17 at 13:24; Status DC Sodium Chloride 1,000 ml @ 1,000 mls/hr Q1H ONCE IV Last administered on 12:38; Start 11/09/17 at 12:25; Stop 11/09/17 at 13:24; Status DC Sodium Chloride 800 ml @ 1,000 mls/hr Q48M ONCE IV Last administered on 12:38; Start 11/09/17 at 12:25; Stop 11/09/17 at 13:12; Status DC Potassium Chloride 100 ml @ 100 mls/hr Q1H IV Last administered on 11/09/17 18 :35; Start 11/09/17 at 14:00; Stop 11/09/17 at 16:59; Status DC Potassium Chloride (KCl) 40 meq ONCE ONCE PO Last administered on 11/09/17 14: 19; Start 11/09/17 at 14:00; Stop 11/09/17 at 14:10; Status DC Sodium Chloride 1,000 ml @ 999 mls/hr BOLUS ONCE IV Last administered on 5/3/ 18at 14:08; Start 11/09/17 at 14:15; Stop 11/09/17 at 15:15; Status DC Sodium Chloride 1,000 ml @ 150 mls/hr Q6H40M IV Last administered on 11/09/17at 15:21; Start 11/09/17 at 14:36; Stop 11/09/17 at 17:24; Status DC Sodium Chloride (NS Flush) 2 ml UNSCH PRN IV FLUSH FLUSH AFTER USING IV ACCESS ; Start 11/09/17 at 14:45 Sodium Chloride (NS Flush) 2 ml BID IV FLUSH Last administered on 11/25/17at 07: 22; Start 11/09/17 at 21:00 Famotidine (Pepcid) 20 mg Q12HR PO Last administered on 11/25/17at 07:25; Start 11/09/17 at 21:00 Albuterol/ Ipratropium (Duoneb Neb) 1 ampule Q4HR NEB PRN NEB WHEEZING; Start 11/09/17 at 15:00; Stop 11/10/17 at 21:22; Status DC Enoxaparin Sodium (Lovenox Inj) 40 mg Q24H SQ Last administered on 11/10/17at 16: 51; Start 11/09/17 at 15:00; Stop 11/10/17 at 17:22; Status DC Vancomycin HCl 1000 mg/Sodium Chloride 250 ml @ 250 mls/hr Q18H IV Last administered on 11/14/17at 21:00; Start 11/10/17 at 08:00; Stop 11/14/17 at 23:45; Status DC Pharmacy Profile Note 0 ml @ 0 mls/hr UNSCH OTHER ; Start 11/09/17 at 15:00; Status Cancel Piperacillin Sod/ Tazobactam Sod 100 ml @ 200 mls/hr Q6H IV Last administered on 11/15/17at 20:06; Start 11/09/17 at 20:00; Stop 11/15/17 at 21:00; Status DC Miscellaneous Information ([facility] Nursing Information) 1 [id number] Last administered on 11/10/17at 20:47; Start 11/09/17 at 14:45 Chlorhexidine Gluconate (Chlorhexidine 2% Cloth) Taper DAILY@04 TOP Last administered on 5/6/18at 04:00; Start 11/10/17 at 04:00; Stop 11/06/18 at 03:59 Chlorhexidine Gluconate (Chlorhexidine 2% Cloth) 3 pack UNSCH PRN TOP HYGIENIC CARE; Start 11/09/17 at 14:45 Potassium Chloride 100 ml @ 50 mls/hr Q2H PRN IV For Potassium 2.8 - 3.2 mEq/ L Last administered on 11/15/17at 11:28; Start 11/09/17 at 17:30; Stop 11/21/17 at 08:33; Status DC Potassium Chloride 100 ml @ 50 mls/hr Q2H PRN IV For Potassium 2.8 - 3.2 mEq/ L Last administered on 11/20/17at 05:48; Start 11/09/17 at 17:30; Stop 11/21/17 at 08:33; Status DC Potassium Chloride 100 ml @ 25 mls/hr UNSCH PRN IV For Potassium 3.3 - 3.5 mEq /L; Start 11/09/17 at 17:30; Stop 11/21/17 at 08:33; Status DC Potassium Chloride 100 ml @ 50 mls/hr Q2H PRN IV For Potassium 3.3 - 3.5 mEq/ L Last administered on 11/20/17at 23:53; Start 11/09/17 at 17:30; Stop 11/21/17 at 08:33; Status DC Magnesium Sulfate 4 gm/Sodium Chloride 100 ml @ 50 mls/hr UNSCH PRN IV For Magnesium 0.9 - 1.1 mg/dL; Start 11/09/17 at 17:30; Stop 11/21/17 at 08:33; Status DC Magnesium Oxide (Mag-Ox) 800 mg UNSCH PRN PO For Magnesium 1.2 - 1.6 mg/dL; Start 11/09/17 at 17:30; Stop 11/09/17 at 17:41; Status DC Magnesium Sulfate 2 gm/Sodium Chloride 100 ml @ 50 mls/hr UNSCH PRN IV For Magnesium 1.2 - 1.6 mg/dL Last administered on 11/12/17at 08:07; Start 11/09/17 at 17:30; Stop 11/21/17 at 08:33; Status DC Potassium Phosphate (K-Phos) 2,000 mg Q4H PRN PO For Phosphorus < 2.5 mg/dL; Start 11/09/17 at 17:30; Stop 11/21/17 at 08:33; Status DC Sodium Phosphate 30 mmol/Sodium Chloride 250 ml @ 42 mls/hr UNSCH PRN IV For Phosphorus < 2.5 mg/dL; Start 11/09/17 at 17:30; Stop 11/21/17 at 08:33; Status DC Potassium Phosphate (K-Phos) 2,000 mg UNSCH PRN PO/TUBE SEE LABEL COMMENTS; Start 11/09/17 at 17:30; Stop 11/21/17 at 08:33; Status DC Potassium Phosphate 30 mmol/ Sodium Chloride 260 ml @ 42 mls/hr UNSCH PRN IV SEE LABEL COMMENTS; Start 11/09/17 at 17:30; Stop 11/21/17 at 08:33; Status DC Albumin Human 250 ml @ 250 mls/hr Q6HR IV Last administered on 11/10/17at 04:38 ; Start 11/09/17 at 18:00; Stop 11/10/17 at 09:00; Status DC Dextrose/Lactated Ringer's 1,000 ml @ 150 mls/hr Q6H40M IV Last administered on 11/10/17at 16:51; Start 11/09/17 at 17:30; Stop 11/10/17 at 19:11; Status DC Lactated Ringer's 1,000 ml @ 999 mls/hr BOLUS ONCE IV Last administered on 11/09/17at 18:14; Start 11/09/17 at 17:45; Stop 11/09/17 at 18:46; Status DC Vancomycin HCl 800 mg/Sodium Chloride 258 ml @ 250 mls/hr ONCE ONCE IV ; Start 11/09/17 at 18:13; Stop 11/09/17 at 19:14; Status Cancel Hydrocortisone Sodium Succinate (SoluCORTEF INJ) 50 mg Q6HR IV PUSH Last administered on 11/13/17at 17:01; Start 11/09/17 at 18:00; Stop 11/13/17 at 19:55; Status DC Phenylephrine HCl 40 mg/Dextrose 500 ml @ 30 mls/hr TITRATE PRN IV Blood Pressure Management Last administered on 11/09/17at 20:53; Start 11/09/17 at 20:45 ; Stop 11/10/17 at 03:05; Status DC Terbutaline Sulfate (Brethine Inj) 1 mg UNSCH PRN SQ FOR EXTRAVASATION PROTOCOL ; Start 11/09/17 at 20:45 Doxycycline Hyclate 100 mg/ Sodium Chloride 100 ml @ 100 mls/hr Q12H IV Last administered on 11/19/17at 23:20; Start 11/10/17 at 00:00; Stop 11/20/17 at 07:16 ; Status DC Metronidazole 100 ml @ 100 mls/hr Q8H IV Last administered on 11/17/17at 01:25 ; Start 11/10/17 at 01:00; Stop 11/17/17 at 07:21; Status DC Acetaminophen/ Hydrocodone Bitart ([place] 7.5-325 Mg) 1 tab Q4H PRN PO PAIN 1- 5 Last administered on 11/24/17at 13:58; Start 11/09/17 at 23:45 Norepinephrine Bitartrate 250 ml @ 7.5 mls/hr TITRATE PRN IV Maintain MAP > 65 mmHg Last administered on 11/11/17at 02:26; Start 11/10/17 at 03:15; Stop at 10:12; Status DC Diatrizoate Meglum/ Diatrizoate Sod ( Gastroview Liq) 18 ml ONCE ONCE PO Last administered on 11/10/17at 09:12; Start 11/10/17 at 07:00; Stop 11/10/17 at 07: 01; Status DC Morphine Sulfate (Morphine Inj) 4 mg Q3H PRN IV PUSH pain scale 6-10 Last administered on 11/20/17at 23:53; Start 11/10/17 at 07:15; Stop 11/21/17 at 08:33 ; Status DC Midazolam HCl (Versed Inj) 5 mg STK-MED ONCE .ROUTE Last administered on at 09:12; Start 11/10/17 at 07:43; Stop 11/10/17 at 07:44; Status DC Lidocaine HCl (Xylocaine 2% Inj) 100 mg STK-MED ONCE .ROUTE ; Start 11/10/17 at 07:53; Stop 11/10/17 at 07:54; Status DC Lidocaine HCl (Xylocaine 2% Inj) 100 mg STK-MED ONCE .ROUTE ; Start 11/10/17 at 08:06; Stop 11/10/17 at 08:07; Status DC Pharmacy Profile Note 0 ml @ 0 mls/hr UNSCH OTHER ; Start 11/10/17 at 08:45; Status UNV Vancomycin HCl 850 mg/Sodium Chloride 258.5 ml @ 250 mls/hr Q12H IV ; Start 11/10/17 at 08:45; Status UNV Miscellaneous Information ([facility] Ordered Lab Info) SPECIFIC LAB TO BE DRAWN:VANCOMY... ONCE ONCE .XX Last administered on 11/11/17at 19:45; Start 11/11 at 19:45; Stop 11/11/17 at 19:46; Status DC Nystatin (Mycostatin Liq) 5 ml QID SWISH-SWAL Last administered on 11/25/17at 07:25; Start 11/10/17 at 13:00 Lidocaine/ Epinephrine (Xylocaine-Epi 1%-1:100,000 Inj) 10 ml ONCE ONCE INFIL ; Start 11/10/17 at 18:45; Stop 11/10/17 at 18:46; Status DC Midazolam HCl (Versed Inj) 2 mg ONCE ONCE IV PUSH Last administered on at 19:11; Start 11/10/17 at 18:45; Stop 11/10/17 at 18:46; Status DC Morphine Sulfate (Morphine Inj) 2 mg ONCE ONCE IV PUSH Last administered on 11/10/17at 19:11; Start 11/10/17 at 18:45; Stop 11/10/17 at 18:46; Status DC Dextrose/Lactated Ringer's 1,000 ml @ 100 mls/hr Q10H IV Last administered on 11/14/17at 03:29; Start 11/10/17 at 19:00; Stop 11/14/17 at 10:22; Status DC Midazolam HCl (Versed Inj) 2 mg ONCE ONCE IV PUSH ; Start 11/10/17 at 19:45; Stop 11/10/17 at 19:46; Status DC Morphine Sulfate (Morphine Inj) 2 mg ONCE ONCE IV PUSH ; Start 11/10/17 at 19:45 ; Stop 11/10/17 at 19:46; Status DC Phytonadione 10 mg/Sodium Chloride 51 ml @ 102 mls/hr ONCE ONCE IV Last administered on 11/10/17at 20:47; Start 11/10/17 at 21:00; Stop 11/10/17 at 21:29; Status DC Albuterol/ Ipratropium (Duoneb Neb) 1 ampule Q6HR NEB NEB Last administered on 11/14/17at 19:53; Start 11/10/17 at 22:00; Stop 11/14/17 at 21:56; Status DC Sodium Chloride (Sodium Chloride 3% Neb) 2 ml Q6HR NEB NEB Last administered on 11/15/17at 16:19; Start 11/10/17 at 22:00; Stop 11/15/17 at 21:59; Status DC Albuterol Sulfate (Albuterol Neb) 2.5 mg Q2HR NEB PRN NEB Dyspnea Last administered on 11/23/17at 02:56; Start 11/10/17 at 21:30 Furosemide (Lasix Inj) 20 mg Q12HR IV PUSH Last administered on 11/13/17at 20:48 ; Start 11/11/17 at 11:15; Stop 11/14/17 at 09:36; Status DC Sodium Chloride 250 ml @ 15 mls/hr ONCE ONCE IV Last administered on at 12:27; Start 11/11/17 at 11:30; Stop 11/12/17 at 04:09; Status DC Magnesium Sulfate/ Dextrose 200 ml @ As Directed STK-MED ONCE .ROUTE ; Start at 08:03; Stop 11/12/17 at 08:04; Status DC Miscellaneous Information ([facility] Ordered Lab Info) SPECIFIC LAB TO BE ... ONCE ONCE .XX Last administered on 11/14/17at 21:00; Start 11/14/17 at 19: 45; Stop 11/14/17 at 19:46; Status DC Hydrocortisone Sodium Succinate (SoluCORTEF INJ) 40 mg Q12H IV PUSH Last administered on 11/15/17at 05:01; Start 11/14/17 at 06:00; Stop 11/15/17 at 10:21; Status DC Alprazolam (Xanax) 0.5 mg Q8H PRN PO ANXIETY Last administered on 11/22/17at 08: 02; Start 11/13/17 at 20:00 Furosemide (Lasix Inj) 40 mg Q12HR IV Last administered on 11/23/17at 09:35; Start 11/14/17 at 10:00; Stop 11/23/17 at 15:40; Status DC Albuterol/ Ipratropium (Duoneb Neb) 1 ampule Q6HR NEB NEB Last administered on 11/18/17at 21:17; Start 11/14/17 at 23:00; Stop 11/18/17 at 22:59; Status DC Vancomycin HCl 1250 mg/Sodium Chloride 262.5 ml @ 250 mls/hr Q12H IV Last administered on 11/15/17at 06:00; Start 11/15/17 at 06:00; Stop 11/15/17 at 14:27; Status DC Miscellaneous Information ([facility] Ordered Lab Info) SPECIFIC LAB TO BE DRAWN:VANCO TROUGH DATE TO BE DR... ONCE ONCE .XX ; Start 11/17/17 at 05:45; Stop 11/17/17 at 05:46; Status Cancel Dextrose 1,000 ml @ 25 mls/hr Q24H IV Last administered on 11/25/17at 05:09; Start 11/15/17 at 10:00 Fluconazole/ Sodium Chloride 200 ml @ 100 mls/hr ONCE ONCE IV Last administered on 11/15/17at 11:13; Start 11/15/17 at 10:00; Stop 11/15/17 at 11:59; Status DC Fluconazole/ Sodium Chloride 100 ml @ 100 mls/hr Q24H IV Last administered on 11/24/17at 11:41; Start 11/16/17 at 11:00 Hydrocortisone Sodium Succinate (SoluCORTEF INJ) 30 mg Taper Q12H IV PUSH Last administered on 11/16/17at 06:00; Start 11/15/17 at 18:00; Stop 11/16/17 at 07:17 ; Status DC Vancomycin HCl 1500 mg/Sodium Chloride 515 ml @ 250 mls/hr Q12H IV Last administered on 11/16/17at 06:00; Start 11/15/17 at 18:00; Stop 11/16/17 at 09:06 ; Status DC Potassium Chloride (KCl) 40 meq NOW ONCE PO Last administered on 11/15/17at 23: 00; Start 11/15/17 at 23:00; Stop 11/15/17 at 23:01; Status DC Potassium Chloride (KCl Powder) 40 meq Q2H PO Last administered on 11/16/17at 08 :43; Start 11/16/17 at 04:15; Stop 11/16/17 at 08:16; Status DC Hydrocortisone Sodium Succinate (SoluCORTEF INJ) 10 mg Taper Q12H IV PUSH Last administered on 11/19/17at 05:35; Start 11/16/17 at 18:00; Stop 11/19/17 at 17:59 ; Status DC Acetazolamide Sodium (Diamox Inj) 250 mg ONCE ONCE IV PUSH Last administered on 11/17/17at 07:54; Start 11/17/17 at 07:30; Stop 11/17/17 at 07:31; Status DC Acetazolamide Sodium (Diamox Inj) 500 mg DAILY IV PUSH Last administered on at 11:31; Start 11/19/17 at 11:15; Stop 11/21/17 at 06:05; Status DC Potassium Bicarb/ Potassium Chloride (K-Lyte Cl Eff) 50 meq ONCE ONCE PO Last administered on 11/20/17at 09:46; Start 11/20/17 at 07:30; Stop 11/20/17 at 07:31; Status DC Methylprednisolone Sodium Succinate (SoluMEDROL INJ) 40 mg Q8HR IV PUSH Last administered on 11/24/17at 13:58; Start 11/20/17 at 22:00; Stop 11/24/17 at 17:40 ; Status DC Acetazolamide Sodium (Diamox Inj) 500 mg Q8H IV PUSH Last administered on at 07:22; Start 11/21/17 at 09:00 Potassium Bicarb/ Potassium Chloride (K-Lyte Cl Eff) 25 meq ONCE ONCE PO Last administered on 11/21/17at 09:46; Start 11/21/17 at 08:45; Stop 11/21/17 at 08:46; Status DC Potassium Bicarb/ Potassium Chloride (K-Lyte Cl Eff) 25 meq DAILY PO Last administered on 11/23/17at 09:35; Start 11/21/17 at 09:00; Stop 11/23/17 at 15:40 ; Status DC Magnesium Sulfate/ Dextrose 100 ml @ 100 mls/hr Q1H IV Last administered on at 12:41; Start 11/21/17 at 09:30; Stop 11/21/17 at 11:29; Status DC Potassium Chloride 100 ml @ 50 mls/hr ONCE ONCE IV Last administered on at 08:04; Start 11/22/17 at 07:00; Stop 11/22/17 at 08:59; Status DC Potassium Bicarb/ Potassium Chloride (K-Lyte Cl Eff) 50 meq ONCE ONCE PO Last administered on 11/22/17at 08:04; Start 11/22/17 at 07:00; Stop 11/22/17 at 07:01; Status DC Potassium Bicarb/ Potassium Chloride (K-Lyte Cl Eff) 100 meq ONCE ONCE PO ; Start 11/22/17 at 08:30; Stop 11/22/17 at 08:31; Status DC Potassium Bicarb/ Potassium Chloride (K-Lyte Cl Eff) 50 meq BID PO Last administered on 11/24/17at 20:42; Start 11/23/17 at 21:00 Furosemide (Lasix) 40 mg BID@,18 PO Last administered on 11/24/17at 08:08; Start 11/23/17 at 18:00; Status Future Hold Potassium Chloride 100 ml @ 50 mls/hr Q2H IV Last administered on 11/24/17at 11 :42; Start 11/24/17 at 05:15; Stop 11/24/17 at 11:14; Status DC Potassium Chloride (KCl) 40 meq ONCE ONCE PO Last administered on 11/24/17at 05 :44; Start 11/24/17 at 05:15; Stop 11/24/17 at 05:17; Status DC Potassium Chloride 100 ml @ 50 mls/hr Q2H IV Last administered on 11/24/17at 20 :50; Start 11/24/17 at 12:00; Stop 11/24/17 at 17:59; Status DC Acetaminophen/ Hydrocodone Bitart ([place] 7.5-325 Mg) 2 tab Q6H PRN PO PAIN 6 TO 10 Last administered on 11/25/17at 07:26; Start 11/24/17 at 17:15 Methylprednisolone Sodium Succinate (SoluMEDROL INJ) 40 mg Q12HR IV PUSH Last administered on 11/25/17at 07:24; Start 11/24/17 at 21:00 A/P Problem List: (1) Tobacco use ICD Code: Z72.0 - Tobacco use Status: Acute (2) History of resection of terminal ileum ICD Code: Z98.890 - Other specified postprocedural states; Z90.49 - Acquired absence of other specified parts of digestive tract Status: Acute (3) Tobacco abuse ICD Code: Z72.0 - Tobacco use Status: Acute (4) Wound dehiscence ICD Code: T81.30XA - Disruption of wound, unspecified, initial encounter; Z90.49 - Acquired absence of other specified parts of digestive tract Status: Acute (5) Crohns disease ICD Code: K50.90 - Crohn's disease, unspecified, without complications Status: Acute (6) Hypokalemia ICD Code: E87.6 - Hypokalemia Status: Acute (7) FEN Status: Acute Assessment and Plan acute hypoxic respiratory failure -Pulmonology following, -ARDS -continue diuretics; echo showing EF of 50% 1 month ago -IV Diflucan for fungal coverage given extensive steroid course -solumedrol - taper course -Remains 2L BY NC WHEN HE WEARS IT- DESATS INTO THE 70S WHEN IT IS OFF Status post colonic resection with wound dehiscence -Dressing changes per colorectal surgery -P.o. diet per CRC Crohn's disease -Tapering solumedrol Hypokalemia and hypomagnesemia -Replacing orally and intravenously, likely secondary to alcoholic gastric malabsorption-- HOLD LASIX - MAKE SURE DOES NOT GET FLUID OVERLOADED CACHEXIA- FAILURE TO THRIVE Deconditioning need physical therapy and occupational HYPOKALEMIA IS BETTER DW RN AND PT Discharge Planning Pending safe place Problem Qualifiers (1) Crohns disease: Qualified Codes: K50.818 - Crohn's disease of both small and large intestine with other complication Hernando Ryan DO November 25, 2017 11:26
[2017-11-25] MEDS: FLUCONAZOLE 200 MG PREMIX BAG 100 ML IV SCH (12:05)
[2017-11-25 12:46] LABS: AUTOMATED NEUTROPHIL # 42.5 TH/MM3 (1.8-7.7); BASOPHIL % 0.1 % (0.0-2.0); HEMATOCRIT 28.7 % (39.0-51.0); HEMOGLOBIN 8.7 GM/DL (13.0-17.0); LYMPH % 2.2 % (9.0-44.0); MEAN CELL VOLUME 89.4 FL (80.0-100.0); MEAN CORPUSCULAR HEMOGLOBIN 27.2 PG (27.0-34.0); MEAN CORPUSCULAR HGB CONC 30.4 % (32.0-36.0); MEAN PLATELET VOLUME 9.1 FL (7.0-11.0); MONO % 2.4 % (0.0-8.0); MONOCYTE # 1.1 TH/MM3 (0-0.9); NEUT % 95.3 % (16.0-70.0); PLATELET COUNT 203 TH/MM3 (150-450); RED BLOOD COUNT 3.21 MIL/MM3 (4.50-5.90); RED CELL DISTRIBUTION WIDTH 18.4 % (11.6-17.2); WHITE BLOOD COUNT 44.6 TH/MM3 (4.0-11.0)
[2017-11-25 13:31] LABS: LYMPHOCYTES 5 % (9-44); MONOCYTES 1 % (0-8); NEUTROPHIL # MANUAL DIFF 41.9 TH/MM3 (1.8-7.7); POLYS (SEG NEUTROPHILS) 94 % (16-70)
[2017-11-25 13:33] LABS: ACANTHOCYTES OCC (NORMAL); KERATOCYTES OCC (NORMAL); OVALOCYTES 1+ (NORMAL)
--- NOTE | 2017-11-25 18:55 | HHI.PR ---
Subjective Remarks ALERT NO SOB Objective Vital Signs Date Time Temp Pulse Resp B/P (MAP) Pulse Ox O2 Delivery O2 Flow Rate FiO2 11/25/17 16:00 97.8 63 12 128/60 (82) 96 11/25/17 16:00 61 11/25/17 14:00 54 11/25/17 12:00 97.9 58 12 110/62 (78) 100 11/25/17 12:00 68 11/25/17 10:00 60 11/25/17 08:00 58 11/25/17 08:00 97.7 58 12 110/62 (78) 100 11/25/17 07:46 100 Nasal Cannula 2.00 11/25/17 07:00 100 Nasal Cannula 2.00 11/25/17 06:00 89 11/25/17 04:00 51 11/25/17 04:00 97.9 51 15 114/60 (78) 100 11/25/17 04:00 51 11/25/17 02:00 72 11/25/17 00:00 98.5 72 17 115/55 (75) 99 11/25/17 00:00 67 11/24/17 22:00 67 11/24/17 20:00 97.8 73 17 121/62 (81) 99 11/24/17 20:00 78 11/24/17 19:22 97 Nasal Cannula 2.00 11/24/17 19:00 98 Nasal Cannula 2.00 I/O 11/24/17 11/24/17 11/24/17 11/25/17 11/25/17 11/25/17 07:00 15:00 23:00 07:00 15:00 23:00 Intake Total 720 ml 820 ml 840 ml 100 ml Output Total 1220 ml 850 ml 1200 ml Balance -500 ml -30 ml -360 ml 100 ml Intake Oral 720 ml 720 ml 840 ml IV Total 100 ml 100 ml Output Urine Total 1220 ml 850 ml 1200 ml # Voids 1 # Bowel Movements 1 1 0 Result Diagram: 11/25/17 1158 11/25/17 0514 Objective Remarks GENERAL: SKIN: Warm and dry. HEAD: Atraumatic. Normocephalic. EYES: Pupils equal and round. No scleral icterus. No injection or drainage. ENT: No nasal bleeding or discharge. Mucous membranes pink and moist. NECK: Trachea midline. No JVD. CARDIOVASCULAR: Regular rate and rhythm. RESPIRATORY: No accessory muscle use. Clear to auscultation. Breath sounds equal bilaterally. GASTROINTESTINAL: Abdomen soft, non-tender, nondistended. Hepatic and splenic margins not palpable. MUSCULOSKELETAL: Extremities without clubbing, cyanosis, or edema. No obvious deformities. NEUROLOGICAL: Awake and alert. No obvious cranial nerve deficits. Motor grossly within normal limits. Five out of 5 muscle strength in the arms and legs. Normal speech. PSYCHIATRIC: Appropriate mood and affect; insight and judgment normal. Assessment and Plan Assessment and Plan RESPIRABLY FAILURE PNA LIVER CIRRHOSIS PLAN O2 NEEDED INCREASE ACTIVITY Padma Rouse MD November 25, 2017 18:55
[2017-11-26] VITALS (7 sets, daily range): BP systolic 103–144; BP diastolic 54–65; PULSE 62–84; RESP 16–18; TEMP 96.6–98.2; O2SAT 94–98
[2017-11-26] MEDS: DEXTROSE 5% IN WATE 1000ML INJ 1,000 ML IV SCH ×2 (00:26→21:06)
[2017-11-26 08:45] LABS: AUTOMATED NEUTROPHIL # 31.6 TH/MM3 (1.8-7.7); BASOPHIL # 0.1 TH/MM3 (0-0.2); BASOPHIL % 0.2 % (0.0-2.0); HEMATOCRIT 25.6 % (39.0-51.0); HEMOGLOBIN 8.2 GM/DL (13.0-17.0); LYMPH % 3.1 % (9.0-44.0); MEAN CELL VOLUME 86.5 FL (80.0-100.0); MEAN CORPUSCULAR HEMOGLOBIN 27.9 PG (27.0-34.0); MEAN CORPUSCULAR HGB CONC 32.3 % (32.0-36.0); MEAN PLATELET VOLUME 9.2 FL (7.0-11.0); MONO % 3.2 % (0.0-8.0); MONOCYTE # 1.1 TH/MM3 (0-0.9); NEUT % 93.5 % (16.0-70.0); PLATELET COUNT 161 TH/MM3 (150-450); RED BLOOD COUNT 2.95 MIL/MM3 (4.50-5.90); RED CELL DISTRIBUTION WIDTH 17.4 % (11.6-17.2); WHITE BLOOD COUNT 33.8 TH/MM3 (4.0-11.0)
[2017-11-26 08:58] LABS: ALBUMIN 1.8 GM/DL (3.4-5.0); ALT (GPT) 152 U/L (12-78); AST (GOT) 88 U/L (15-37); BICARBONATE 20.5 MEQ/L (21.0-32.0); BLOOD UREA NITROGEN 24 MG/DL (7-18); CALCIUM 8.5 MG/DL (8.5-10.1); CHLORIDE 116 MEQ/L (98-107); CREATININE 0.69 MG/DL (0.60-1.30); GLOMERULAR FILTRATION RATE 120 ML/MIN (>89); GLUCOSE,RANDOM 117 MG/DL (74-106); MAGNESIUM 2.2 MG/DL (1.5-2.5); PHOSPHORUS 3.8 MG/DL (2.5-4.9); SODIUM (NA) 144 MEQ/L (136-145)
[2017-11-26 09:00] LABS: ALKALINE PHOSPHATASE 316 U/L (45-117); TOTAL BILIRUBIN ADULT 1.4 MG/DL (0.2-1.0); TOTAL PROTEIN 4.3 GM/DL (6.4-8.2)
[2017-11-26] MEDS: SODIUM CHLORIDE 0.9% FLUSH 10 ML FLUSH IV FLUSH SCH ×2 (09:00→21:05)
[2017-11-26] MEDS: POTASSIUM CHLORIDE 25 MEQ EFFERVESCENT TAB PO SCH ×2 (09:00→21:05)
[2017-11-26] MEDS: ACETAMINOPHEN/HYDROcodone 325 MG/7.5 MG TAB PO PRN ×2 (10:03→16:47)
[2017-11-26] MEDS: FAMOTIDINE 20 MG TAB PO SCH ×2 (10:03→21:05)
[2017-11-26] MEDS: NYSTATIN SUSP 500,000 U/5 ML CUP SWISH-SWAL SCH ×4 (10:05→21:05)
[2017-11-26] MEDS: methylPREDNISolone SOD SUCC 40 MG/1 ML VIAL IV PUSH SCH ×2 (10:10→21:05)
--- NOTE | 2017-11-26 10:49 | HHI.PR ---
Subjective Remarks Follow up respiratory failure, abdominal wound, electrolyte abnormalities. Patient reports 8/10 pain this morning. No other complaints at this time. Denies cough, dyspnea. Objective Vitals Vital Signs Date Time Temp Pulse Resp B/P (MAP) Pulse Ox O2 Delivery O2 Flow Rate FiO2 11/26/17 08:00 96.6 63 16 113/57 (75) 97 11/26/17 04:00 97.3 62 18 103/54 (70) 95 11/26/17 00:00 97.4 64 18 128/64 (85) 98 11/25/17 20:00 97.5 64 18 136/61 (86) 98 11/25/17 19:58 67 11/25/17 16:00 97.8 63 12 128/60 (82) 96 11/25/17 16:00 61 11/25/17 14:00 54 11/25/17 12:00 97.9 58 12 110/62 (78) 100 11/25/17 12:00 68 I/O 11/25/17 11/25/17 11/25/17 11/26/17 11/26/17 11/26/17 07:00 15:00 23:00 07:00 15:00 23:00 Intake Total 840 ml 100 ml 240 ml Output Total 1200 ml 800 ml Balance -360 ml 100 ml -560 ml Intake Oral 840 ml 240 ml IV Total 100 ml Output Urine Total 1200 ml 800 ml # Bowel Movements 0 1 Result Diagram: 11/26/17 0757 11/26/17 0757 Imaging Last Impressions Chest X-Ray 11/24/17 0600 Signed Impressions: Service Date/Time: Friday, November 24, 2017 03:30 - CONCLUSION: Considerable improvement but residual bilateral infiltrates. Lalo Zavala Jr., MD Chest CT 11/20/17 0000 Signed Impressions: Service Date/Time: Monday, November 20, 2017 10:54 - CONCLUSION: Increasing coarse interstitial changes in both lungs with small bilateral pleural effusions. Interstitial pattern in the base is moving towards it honeycomb pattern. Hernando Rodrigez MD FACR Abdomen Ultrasound 11/11/17 0000 Signed Impressions: Service Date/Time: Saturday, November 11, 2017 14:19 - CONCLUSION: Trace ascites in the abdomen. Keegan Almaraz MD Abdomen/Pelvis CT 11/09/17 0000 Signed Impressions: Service Date/Time: Friday, November 10, 2017 11:22 - CONCLUSION: Increasing edema in the cecum and terminal ileum of uncertain etiology. Increasing stool in the sigmoid colon Enlarging right inguinal hernia Slight increase in amount of ascites. Hernando Rodrigez MD FACR Objective Remarks General: Cachectic male in no acute distress. Heart: Regular rate and rhythm. No murmur. Lungs: Clear to auscultation bilaterally. No wheezes, rales, or rhonchi. Breathing is nonlabored. Abdomen: Soft, nontender, nondistended. Extremities: No lower extremity edema. Psych: Alert, answers questions. Neuro: Normal speech. No focal deficits noted. Urinary Catheter: No Vascular Central Line Catheter: No A/P Problem List: (1) History of resection of terminal ileum ICD Code: Z98.890 - Other specified postprocedural states; Z90.49 - Acquired absence of other specified parts of digestive tract Status: Acute (2) Tobacco abuse ICD Code: Z72.0 - Tobacco use Status: Acute (3) Wound dehiscence ICD Code: T81.30XA - Disruption of wound, unspecified, initial encounter; Z90.49 - Acquired absence of other specified parts of digestive tract Status: Acute (4) Crohns disease ICD Code: K50.90 - Crohn's disease, unspecified, without complications Status: Acute (5) Hypokalemia ICD Code: E87.6 - Hypokalemia Status: Acute (6) FEN Status: Acute (7) Leukocytosis ICD Code: D72.829 - Elevated white blood cell count, unspecified Status: Resolved Assessment and Plan 1. Acute hypoxic respiratory failure, ARDS: Improved. Appreciate pulmonology recommendations. Patient is not wearing his oxygen at this time. Taper Solu- Medrol. 2. Status post colon resection with wound dehiscence: Management per colorectal surgery. 3. Crohn's disease: Tapering steroids. 4. Leukocytosis: WBC is improving. Likely secondary to steroids. 5. Cachexia, failure to thrive: Encourage oral intake. 6. Hypokalemia: Improved with supplementation. Monitor labs. 7. Hypomagnesemia: Improved. 8. Deconditioning: Continue physical therapy, occupational therapy. 9. DVT prophylaxis: Lovenox. Discharge Planning Pending clearance by colorectal surgery and arrangement of safe discharge. Problem Qualifiers (1) Crohns disease: Qualified Codes: K50.818 - Crohn's disease of both small and large intestine with other complication Delfino Nash MD November 26, 2017 10:49
[2017-11-26 11:20] LABS: BANDS 2 % (0-6); LYMPHOCYTES 4 % (9-44); MONOCYTES 2 % (0-8); NEUTROPHIL # MANUAL DIFF 31.8 TH/MM3 (1.8-7.7); OVALOCYTES 1+ (NORMAL); POLYS (SEG NEUTROPHILS) 92 % (16-70)
[2017-11-26] MEDS: FLUCONAZOLE 200 MG PREMIX BAG 100 ML IV SCH (12:36)
[2017-11-26] MEDS: ENOXAPARIN SODIUM 40 MG/0.4 ML SYRINGE SQ SCH (12:37)
--- NOTE | 2017-11-26 13:28 | HHI.PR ---
Subjective Remarks ALERT NO SOB Objective Vital Signs Date Time Temp Pulse Resp B/P (MAP) Pulse Ox O2 Delivery O2 Flow Rate FiO2 11/26/17 12:00 97.4 80 18 121/60 (80) 97 11/26/17 08:00 96.6 63 16 113/57 (75) 97 11/26/17 04:00 97.3 62 18 103/54 (70) 95 11/26/17 00:00 97.4 64 18 128/64 (85) 98 11/25/17 20:00 97.5 64 18 136/61 (86) 98 11/25/17 19:58 67 11/25/17 16:00 97.8 63 12 128/60 (82) 96 11/25/17 16:00 61 11/25/17 14:00 54 I/O 11/25/17 11/25/17 11/25/17 11/26/17 11/26/17 11/26/17 07:00 15:00 23:00 07:00 15:00 23:00 Intake Total 840 ml 100 ml 240 ml Output Total 1200 ml 800 ml Balance -360 ml 100 ml -560 ml Intake Oral 840 ml 240 ml IV Total 100 ml Output Urine Total 1200 ml 800 ml # Bowel Movements 0 1 Result Diagram: 11/26/17 0757 11/26/17 0757 Objective Remarks GENERAL: SKIN: Warm and dry. HEAD: Atraumatic. Normocephalic. EYES: Pupils equal and round. No scleral icterus. No injection or drainage. ENT: No nasal bleeding or discharge. Mucous membranes pink and moist. NECK: Trachea midline. No JVD. CARDIOVASCULAR: Regular rate and rhythm. RESPIRATORY: No accessory muscle use. Clear to auscultation. Breath sounds equal bilaterally. GASTROINTESTINAL: Abdomen soft, non-tender, nondistended. Hepatic and splenic margins not palpable. MUSCULOSKELETAL: Extremities without clubbing, cyanosis, or edema. No obvious deformities. NEUROLOGICAL: Awake and alert. No obvious cranial nerve deficits. Motor grossly within normal limits. Five out of 5 muscle strength in the arms and legs. Normal speech. PSYCHIATRIC: Appropriate mood and affect; insight and judgment normal. Assessment and Plan Assessment and Plan RESPIRABLY FAILURE PNA LIVER CIRRHOSIS IMPROVED PLAN O2 NEEDED INCREASE ACTIVITY Padma Rouse MD November 26, 2017 13:28
[2017-11-26] MEDS: CHLORHEXIDINE GLUCONATE 2 % 1 PACK (2 CLOTHS) TOP SCH (21:06)
[2017-11-27] VITALS (7 sets, daily range): BP systolic 118–153; BP diastolic 60–65; PULSE 61–97; RESP 17–20; TEMP 96.5–97.9; O2SAT 94–98
[2017-11-27 08:09] LABS: BASOPHIL % 0.2 % (0.0-2.0); HEMATOCRIT 26.4 % (39.0-51.0); HEMOGLOBIN 8.4 GM/DL (13.0-17.0); LYMPH % 3.1 % (9.0-44.0); LYMPHOCYTE # 0.9 TH/MM3 (1.0-4.8); MEAN CELL VOLUME 87.5 FL (80.0-100.0); MEAN CORPUSCULAR HEMOGLOBIN 27.8 PG (27.0-34.0); MEAN CORPUSCULAR HGB CONC 31.8 % (32.0-36.0); MONO % 3.6 % (0.0-8.0); NEUT % 93.1 % (16.0-70.0); PLATELET COUNT 150 TH/MM3 (150-450); RED BLOOD COUNT 3.02 MIL/MM3 (4.50-5.90); WHITE BLOOD COUNT 27.8 TH/MM3 (4.0-11.0)
[2017-11-27 08:38] LABS: ALBUMIN 1.8 GM/DL (3.4-5.0); AST (GOT) 89 U/L (15-37); BICARBONATE 18.9 MEQ/L (21.0-32.0); BLOOD UREA NITROGEN 27 MG/DL (7-18); CHLORIDE 118 MEQ/L (98-107); CREATININE 0.67 MG/DL (0.60-1.30); GLOMERULAR FILTRATION RATE 125 ML/MIN (>89); GLUCOSE,RANDOM 131 MG/DL (74-106); SODIUM (NA) 145 MEQ/L (136-145)
[2017-11-27 08:39] LABS: ALT (GPT) 162 U/L (12-78)
[2017-11-27 08:41] LABS: ALKALINE PHOSPHATASE 315 U/L (45-117); TOTAL BILIRUBIN ADULT 1.3 MG/DL (0.2-1.0); TOTAL PROTEIN 4.2 GM/DL (6.4-8.2)
[2017-11-27 08:50] LABS: ACANTHOCYTES OCC (NORMAL); OVALOCYTES 1+ (NORMAL)
[2017-11-27 08:51] LABS: KERATOCYTES OCC (NORMAL)
[2017-11-27] MEDS: methylPREDNISolone SOD SUCC 40 MG/1 ML VIAL IV PUSH SCH ×2 (10:07→20:25)
[2017-11-27] MEDS: FAMOTIDINE 20 MG TAB PO SCH ×2 (10:07→20:25)
[2017-11-27] MEDS: NYSTATIN SUSP 500,000 U/5 ML CUP SWISH-SWAL SCH ×4 (10:07→20:25)
[2017-11-27] MEDS: SODIUM CHLORIDE 0.9% FLUSH 10 ML FLUSH IV FLUSH SCH ×2 (10:07→20:27)
[2017-11-27] MEDS: POTASSIUM CHLORIDE 25 MEQ EFFERVESCENT TAB PO SCH ×2 (10:08→20:24)
[2017-11-27] MEDS: ENOXAPARIN SODIUM 40 MG/0.4 ML SYRINGE SQ SCH (10:08)
[2017-11-27] MEDS: FLUCONAZOLE 200 MG PREMIX BAG 100 ML IV SCH (10:09)
--- NOTE | 2017-11-27 11:29 | HHI.PR ---
Subjective Remarks Follow-up respiratory failure, abdominal wound. Patient is more confused today. He denies pain currently. Denies chest pain or dyspnea. Objective Vitals Vital Signs Date Time Temp Pulse Resp B/P (MAP) Pulse Ox O2 Delivery O2 Flow Rate FiO2 11/27/17 08:00 97.9 64 17 124/60 (81) 97 11/27/17 04:00 97.5 73 19 118/65 (82) 97 11/27/17 03:50 61 11/27/17 00:00 97.3 77 18 153/63 (93) 97 11/26/17 20:00 98.2 84 18 126/57 (80) 97 11/26/17 16:00 97.6 79 17 144/65 (91) 94 11/26/17 12:00 97.4 80 18 121/60 (80) 97 I/O 11/26/17 11/26/17 11/26/17 11/27/17 11/27/17 11/27/17 06:59 14:59 22:59 06:59 14:59 22:59 Intake Total 240 ml 240 ml 240 ml Output Total 800 ml 400 ml Balance -560 ml 240 ml -160 ml Intake Oral 240 ml 240 ml 240 ml Output Urine Total 800 ml 400 ml # Voids 3 3 # Bowel Movements 1 1 Result Diagram: 11/27/17 0656 11/27/17 0656 Imaging Last Impressions Chest X-Ray 11/24/17 0600 Signed Impressions: Service Date/Time: Friday, November 24, 2017 03:30 - CONCLUSION: Considerable improvement but residual bilateral infiltrates. Lalo Zavala Jr., MD Chest CT 11/20/17 0000 Signed Impressions: Service Date/Time: Monday, November 20, 2017 10:54 - CONCLUSION: Increasing coarse interstitial changes in both lungs with small bilateral pleural effusions. Interstitial pattern in the base is moving towards it honeycomb pattern. Hernando Rodrigez MD FACR Abdomen Ultrasound 11/11/17 0000 Signed Impressions: Service Date/Time: Saturday, November 11, 2017 14:19 - CONCLUSION: Trace ascites in the abdomen. Keegan Almaraz MD Abdomen/Pelvis CT 11/09/17 0000 Signed Impressions: Service Date/Time: Friday, November 10, 2017 11:22 - CONCLUSION: Increasing edema in the cecum and terminal ileum of uncertain etiology. Increasing stool in the sigmoid colon Enlarging right inguinal hernia Slight increase in amount of ascites. Hernando Rodrigez MD FACR Objective Remarks General: Cachectic male in no acute distress. Heart: Regular rate and rhythm. No murmur. Lungs: Clear to auscultation bilaterally. No wheezes, rales, or rhonchi. Breathing is nonlabored. Abdomen: Soft, nontender, nondistended. Extremities: No lower extremity edema. Psych: Alert, confused. Not oriented to year, month, hospital. Is oriented to city. Neuro: Normal speech. No focal deficits noted. Procedures 11/10/17 central line placement 11/10/17 pigtail chest tube placement Urinary Catheter: No Vascular Central Line Catheter: No A/P Problem List: (1) History of resection of terminal ileum ICD Code: Z98.890 - Other specified postprocedural states; Z90.49 - Acquired absence of other specified parts of digestive tract Status: Acute (2) Tobacco abuse ICD Code: Z72.0 - Tobacco use Status: Acute (3) Wound dehiscence ICD Code: T81.30XA - Disruption of wound, unspecified, initial encounter; Z90.49 - Acquired absence of other specified parts of digestive tract Status: Acute (4) Crohns disease ICD Code: K50.90 - Crohn's disease, unspecified, without complications Status: Acute (5) Hypokalemia ICD Code: E87.6 - Hypokalemia Status: Acute (6) FEN Status: Acute (7) Leukocytosis ICD Code: D72.829 - Elevated white blood cell count, unspecified Status: Resolved Assessment and Plan 1. Acute hypoxic respiratory failure, ARDS: Improved. Appreciate pulmonology recommendations. Patient is not wearing his oxygen at this time. Taper Solu- Medrol. 2. Status post colon resection with wound dehiscence: Management per colorectal surgery. 3. Crohn's disease: Tapering steroids. 4. Leukocytosis: Likely secondary to steroids. WBC is improving. 5. Cachexia, failure to thrive: Encourage oral intake. 6. Hypokalemia: Improved with supplementation. Monitor labs. 7. Hypomagnesemia: Improved. 8. Deconditioning: Continue physical therapy, occupational therapy. 9. DVT prophylaxis: Lovenox. 10. Encephalopathy: Patient has had increasing confusion today. Check CT of the head. Discharge Planning Pending clearance by colorectal surgery and arrangement of safe discharge. Problem Qualifiers (1) Crohns disease: Qualified Codes: K50.818 - Crohn's disease of both small and large intestine with other complication Delfino Nash MD November 27, 2017 11:28
[2017-11-27] MEDS: ACETAMINOPHEN/HYDROcodone 325 MG/7.5 MG TAB PO PRN (13:18)
--- NOTE | 2017-11-27 14:35 | RADRPT ---
EXAM DATE/TIME: 11/27/2017 12:57 [facility] COMPARISON: CT BRAIN W/O CONTRAST, February 19, 2016, 15:45. INDICATIONS : Altered mental status RADIATION DOSE: 35.79 CTDIvol (mGy) ; Patient motion MEDICAL HISTORY : Cardiovascular disease. Hypertension. Chronic obstructive pulmonary disease. SURGICAL HISTORY : None. ENCOUNTER: Initial ACUITY: 1 day PAIN SCALE: 0/10 LOCATION: cranial TECHNIQUE: Multiple contiguous axial images were obtained of the head. Using automated exposure control and adj ustment of the mA and/or kV according to patient size, radiation dose was kept as low as reasonably a chievable to obtain optimal diagnostic quality images. DICOM format image data is available electro nically for review and comparison. FINDINGS: CEREBRUM: The ventricles are normal for age. No evidence of midline shift, mass lesion, hemorrhage or acute in farction. No extra-axial fluid collections are seen. POSTERIOR FOSSA: The cerebellum and brainstem are intact. The 4th ventricle is midline. The cerebellopontine angle i s unremarkable. EXTRACRANIAL: The visualized portion of the orbits is intact. SKULL: The calvaria is intact. No evidence of skull fracture. CONCLUSION: 1. Stable exam 2. No evidence of acute infarct, hemorrhage, mass or edema. Star Patterson MD on November 27, 2017 at 14:32 Board Certified Radiologist. This report was verified electronically.
--- NOTE | 2017-11-27 21:09 | HHI.PR ---
Subjective Remarks 52 YOWM with Crohn's dis, Cirrohosis, s/p TIPS, abd surgery,ARDS Breathing better Feels better Tolerates PO Somewhat confused Objective Vital Signs Vital Signs Date Time Temp Pulse Resp B/P (MAP) Pulse Ox O2 Delivery O2 Flow Rate FiO2 11/27/17 16:00 97.3 83 19 129/60 (83) 94 11/27/17 12:00 97.8 71 20 131/61 (84) 98 11/27/17 08:00 97.9 64 17 124/60 (81) 97 11/27/17 04:00 97.5 73 19 118/65 (82) 97 11/27/17 03:50 61 11/27/17 00:00 97.3 77 18 153/63 (93) 97 I/O 11/26/17 11/26/17 11/26/17 11/27/17 11/27/17 11/27/17 07:00 15:00 23:00 07:00 15:00 23:00 Intake Total 240 ml 240 ml 240 ml 100 ml 360 ml Output Total 800 ml 400 ml 200 ml Balance -560 ml 240 ml -160 ml -100 ml 360 ml Intake Oral 240 ml 240 ml 240 ml 360 ml IV Total 100 ml Output Urine Total 800 ml 400 ml 200 ml # Voids 3 3 6 # Bowel Movements 1 1 1 Result Diagram: 11/27/17 0656 11/27/17 0656 Objective Remarks GENERAL: MBMNWM, mild sob SKIN: Warm and dry. HEAD: Normocephalic. EYES: No scleral icterus. No injection or drainage. NECK: Supple, trachea midline. No JVD or lymphadenopathy. CARDIOVASCULAR: Regular rate and rhythm without murmurs, gallops, or rubs. RESPIRATORY: Breath sounds equal bilaterally. No accessory muscle use. GASTROINTESTINAL: Abdomen soft, non-tender, nondistended. Abd wound dressed MUSCULOSKELETAL: No cyanosis, or edema. BACK: Nontender without obvious deformity. No CVA tenderness. A/P Assessment and Plan IMPRESSION: 1. Bilateral lung infiltrate with interstitial pattern and appearing fibrotic changes, possibly has acute respiratory distress syndrome and also possible underlying interstitial lung disease. 2. History of nicotine use. 3. Cirrhosis of the liver, status post transjugular intrahepatic portosystemic shunt procedure. 4. Crohn's disease. PLAN Stable on RA Keep sat 90-94% Solumedrol Cont Abx Replace K+ Zach Mas MD November 27, 2017 21:09
--- NOTE | 2017-11-27 23:15 | HHI.PR ---
Subjective Remarks C/R Surg afebrile, VSS debi PO less SOB UO adeq - neg balance +BM Objective - Vital Signs Date Time Temp Pulse Resp B/P (MAP) Pulse Ox O2 Delivery O2 Flow Rate FiO2 11/27/17 20:00 96.5 97 18 126/65 (85) 96 11/26/17 09:47 21 11/26/17 08:00 Room Air 11/25/17 07:46 2.00 Result Diagram: 11/27/17 0656 11/27/17 0656 Objective Remarks PE alert Abd - soft, open mid portion, clean, min tympany wound dressed A/P Discharge Planning Imp: SOB - stable incr lasix - CXR better wound clean - need to keep moist, abd binder - ? wound coverage Ashwin Lane MD November 27, 2017 23:15
[2017-11-28] VITALS: BP 130/62; PULSE 57; PULSE 92; RESP 18; TEMP 97.7; O2SAT 95
[2017-11-28 04:00] VITALS: BP 125/67; PULSE 92; RESP 18; TEMP 97.9; O2SAT 94
[2017-11-28] MEDS: CHLORHEXIDINE GLUCONATE 2 % 1 PACK (2 CLOTHS) TOP SCH (04:00)
[2017-11-28] MEDS: DEXTROSE 5% IN WATE 1000ML INJ 1,000 ML IV SCH (04:49)
[2017-11-28 06:09] LABS: AUTOMATED NEUTROPHIL # 18.8 TH/MM3 (1.8-7.7); BASOPHIL # 0.1 TH/MM3 (0-0.2); BASOPHIL % 0.3 % (0.0-2.0); HEMATOCRIT 24.6 % (39.0-51.0); LYMPH % 3.8 % (9.0-44.0); LYMPHOCYTE # 0.8 TH/MM3 (1.0-4.8); MEAN CORPUSCULAR HEMOGLOBIN 28.2 PG (27.0-34.0); MEAN CORPUSCULAR HGB CONC 32.3 % (32.0-36.0); MEAN PLATELET VOLUME 8.4 FL (7.0-11.0); MONO % 4.6 % (0.0-8.0); MONOCYTE # 0.9 TH/MM3 (0-0.9); NEUT % 91.3 % (16.0-70.0); PLATELET COUNT 149 TH/MM3 (150-450); RED BLOOD COUNT 2.83 MIL/MM3 (4.50-5.90); RED CELL DISTRIBUTION WIDTH 19.2 % (11.6-17.2); WHITE BLOOD COUNT 20.6 TH/MM3 (4.0-11.0)
[2017-11-28 06:26] LABS: ALBUMIN 1.9 GM/DL (3.4-5.0); AST (GOT) 86 U/L (15-37); BLOOD UREA NITROGEN 25 MG/DL (7-18); CHLORIDE 123 MEQ/L (98-107); CREATININE 0.74 MG/DL (0.60-1.30); GLOMERULAR FILTRATION RATE 111 ML/MIN (>89); GLUCOSE,RANDOM 141 MG/DL (74-106); SODIUM (NA) 152 MEQ/L (136-145)
[2017-11-28 06:27] LABS: ALT (GPT) 172 U/L (12-78)
[2017-11-28 06:29] LABS: ALKALINE PHOSPHATASE 331 U/L (45-117); TOTAL BILIRUBIN ADULT 1.2 MG/DL (0.2-1.0); TOTAL PROTEIN 4.2 GM/DL (6.4-8.2)
[2017-11-28 08:00] VITALS: BP 123/59; PULSE 72; RESP 19; TEMP 98.6; O2SAT 100
[2017-11-28] MEDS: POTASSIUM CHLORIDE 25 MEQ EFFERVESCENT TAB PO SCH ×2 (08:49→21:01)
[2017-11-28] MEDS: SODIUM CHLORIDE 0.9% FLUSH 10 ML FLUSH IV FLUSH SCH ×2 (08:49→21:00)
[2017-11-28] MEDS: methylPREDNISolone SOD SUCC 40 MG/1 ML VIAL IV PUSH SCH ×2 (08:50→21:00)
[2017-11-28] MEDS: NYSTATIN SUSP 500,000 U/5 ML CUP SWISH-SWAL SCH ×4 (08:50→21:01)
[2017-11-28] MEDS: FAMOTIDINE 20 MG TAB PO SCH ×2 (08:50→21:01)
[2017-11-28] MEDS: ACETAMINOPHEN/HYDROcodone 325 MG/7.5 MG TAB PO PRN (08:51)
[2017-11-28] MEDS: FLUCONAZOLE 200 MG PREMIX BAG 100 ML IV SCH (11:00)
[2017-11-28] MEDS: ENOXAPARIN SODIUM 40 MG/0.4 ML SYRINGE SQ SCH (11:01)
[2017-11-28 12:00] VITALS: BP 127/62; PULSE 49; RESP 18; TEMP 97.9; O2SAT 94
--- NOTE | 2017-11-28 15:44 | HHI.PR ---
Subjective Remarks The patient was resting in bed. He was not sure if he was hungry or not. He said his stomach pain has gotten better. He had no acute complaints. Objective Vitals Vital Signs Date Time Temp Pulse Resp B/P (MAP) Pulse Ox O2 Delivery O2 Flow Rate FiO2 11/28/17 12:00 97.9 49 18 127/62 (83) 94 11/28/17 08:51 Room Air 11/28/17 08:00 98.6 72 19 123/59 (80) 100 11/28/17 04:00 97.9 92 18 125/67 (86) 94 11/28/17 00:00 57 11/28/17 00:00 97.7 92 18 130/62 (84) 95 11/27/17 20:00 96.5 97 18 126/65 (85) 96 11/27/17 19:30 Room Air 11/27/17 16:00 97.3 83 19 129/60 (83) 94 I/O 11/27/17 11/27/17 11/27/17 11/28/17 11/28/17 11/28/17 07:00 15:00 23:00 07:00 15:00 23:00 Intake Total 240 ml 100 ml 360 ml 240 ml Output Total 400 ml 200 ml Balance -160 ml -100 ml 360 ml 240 ml Intake Oral 240 ml 360 ml 240 ml IV Total 100 ml Output Urine Total 400 ml 200 ml # Voids 3 6 3 # Bowel Movements 1 1 Result Diagram: 11/28/17 0555 11/28/17 0555 Imaging Last Impressions Head CT 11/27/17 0000 Signed Impressions: Service Date/Time: Monday, November 27, 2017 12:57 - CONCLUSION: 1. Stable exam 2. No evidence of acute infarct, hemorrhage, mass or edema. Star Patterson MD Chest X-Ray 11/24/17 0600 Signed Impressions: Service Date/Time: Friday, November 24, 2017 03:30 - CONCLUSION: Considerable improvement but residual bilateral infiltrates. Lalo Zavala Jr., MD Chest CT 11/20/17 0000 Signed Impressions: Service Date/Time: Monday, November 20, 2017 10:54 - CONCLUSION: Increasing coarse interstitial changes in both lungs with small bilateral pleural effusions. Interstitial pattern in the base is moving towards it honeycomb pattern. Hernando Rodrigez MD FACR Abdomen Ultrasound 11/11/17 0000 Signed Impressions: Service Date/Time: Saturday, November 11, 2017 14:19 - CONCLUSION: Trace ascites in the abdomen. Keegan Almaraz MD Abdomen/Pelvis CT 11/09/17 0000 Signed Impressions: Service Date/Time: Friday, November 10, 2017 11:22 - CONCLUSION: Increasing edema in the cecum and terminal ileum of uncertain etiology. Increasing stool in the sigmoid colon Enlarging right inguinal hernia Slight increase in amount of ascites. Hernando Rodrigez MD FACR Objective Remarks General: Cachectic male in no acute distress. Heart: Regular rate and rhythm. No murmur. Lungs: Clear to auscultation bilaterally. No wheezes, rales, or rhonchi. Breathing is nonlabored. Abdomen: Soft, nontender, nondistended. Extremities: No lower extremity edema. Psych: Calm. Neuro: Normal speech. No focal deficits noted. Confused. Procedures 11/10/17 central line placement 11/10/17 pigtail chest tube placement A/P Problem List: (1) History of resection of terminal ileum ICD Code: Z98.890 - Other specified postprocedural states; Z90.49 - Acquired absence of other specified parts of digestive tract Status: Acute (2) Tobacco abuse ICD Code: Z72.0 - Tobacco use Status: Acute (3) Wound dehiscence ICD Code: T81.30XA - Disruption of wound, unspecified, initial encounter; Z90.49 - Acquired absence of other specified parts of digestive tract Status: Acute (4) Crohns disease ICD Code: K50.90 - Crohn's disease, unspecified, without complications Status: Acute (5) Hypokalemia ICD Code: E87.6 - Hypokalemia Status: Acute (6) FEN Status: Acute (7) Leukocytosis ICD Code: D72.829 - Elevated white blood cell count, unspecified Status: Resolved Assessment and Plan Acute hypoxic respiratory failure/ ARDS Improved. Appreciate pulmonology recommendations. - wean steroids. - oxygen and nebs as needed. - IS. Status post colon resection with wound dehiscence The pt has Crohn's disease. - Management per colorectal surgery. Leukocytosis Likely secondary to steroids. - follow CBC. Improving. Cachexia/ failure to thrive - Encourage oral intake. Deconditioning - Continue physical therapy, occupational therapy. Elevated LFTs/ Hepatic encephalopathy Ammonia level elevated. - start standing lactulose. - check liver US and hepatitis profile. Hypernatremia Na 153. - d/c Lasix. - D5W. - follow BMP. DVT prophylaxis: Lovenox Problem Qualifiers (1) Crohns disease: Qualified Codes: K50.818 - Crohn's disease of both small and large intestine with other complication Francis Levi DO November 28, 2017 15:44
[2017-11-28 16:00] VITALS: BP 129/61; PULSE 60; RESP 18; TEMP 97.8; O2SAT 99
--- NOTE | 2017-11-28 16:45 | RADRPT ---
EXAM DATE: 11/28/2017 4:40 PM EDT AGE/SEX: 52 years / Male INDICATIONS: Increased lab values. CLINICAL DATA: This is the patient's initial encounter. Patient reports that signs and symptoms have been present for 1 day and indicates a pain score of 2/10. MEDICAL/SURGICAL HISTORY: Chronic obstructive pulmonary disease. Crohn?s disease. Hypertension . Irregular heartbeat. Asthma. Gastritis. Ascites. Pancreatitis. Hiatal hernia. Inguinal hernia. Kidn ey stones. MRSA. Tonsillectomy. Colon resection. Right hand 2nd finger surgery. Blood transfusion. COMPARISON: [facility], US ABDOMEN - LIVER, 01/05/2017. . MEASUREMENTS (cm x cm x cm): Liver:__ 16.1 cm length Common Bile Duct:__ 4mm Right Kidney:__ 10.0 x 5.5 x 4.7 cm. Spleen:__ 10.8 FINDINGS: Liver: There is increased echogenicity throughout the liver suggestive of fatty infiltration. This i s not significantly changed compared to the prior examination. No dilated biliary ducts. No evidence of ascites. Portal Vein: Hepatopedal flow seen in portal vein. Common Duct: No intraluminal mass or stone visualized. Gallbladder: The gallbladder wall is not thickened. Gallstones present. Pancreas: The visualized portions are within normal limits. Right Kidney: No mass or hydronephrosis. There is a 1 cm calcification overlying the lower pole sugg estive of a stone. CONCLUSION: 1. Gallstone in the gallbladder. No biliary tract obstruction. 2. Diffuse fatty infiltration of the liver. No significant change compared to the prior study. 3. Nonobstructing 1 cm stone in the lower pole of the right kidney. Electronically signed by: Gurpreet Maynard MD 11/28/2017 4:44 PM EDT
[2017-11-28] MEDS: POTASSIUM CHLORIDE INJ 30 MEQ in DEXTROSE 5% IN WATE 1000ML INJ 1,000 ML IV SCH ×2 (17:29)
[2017-11-28] MEDS: LACTULOSE SYRUP 20 GM/30 ML CUP PO SCH ×3 (17:29→21:01)
[2017-11-28] MEDS: ALPRAZolam 0.5 MG TAB PO PRN (17:30)
--- NOTE | 2017-11-28 18:36 | HHI.PR ---
Subjective Remarks 52 YOWM with Crohn's dis, Cirrohosis, s/p TIPS, abd surgery,ARDS Breathing better Feels better Tolerates PO Somewhat confused Weaned to RA Objective Vital Signs Vital Signs Date Time Temp Pulse Resp B/P (MAP) Pulse Ox O2 Delivery O2 Flow Rate FiO2 11/28/17 16:00 97.8 60 18 129/61 (83) 99 11/28/17 12:00 97.9 49 18 127/62 (83) 94 11/28/17 08:51 Room Air 11/28/17 08:00 98.6 72 19 123/59 (80) 100 11/28/17 04:00 97.9 92 18 125/67 (86) 94 11/28/17 00:00 57 11/28/17 00:00 97.7 92 18 130/62 (84) 95 11/27/17 20:00 96.5 97 18 126/65 (85) 96 11/27/17 19:30 Room Air I/O 11/27/17 11/27/17 11/27/17 11/28/17 11/28/17 11/28/17 07:00 15:00 23:00 07:00 15:00 23:00 Intake Total 240 ml 100 ml 360 ml 240 ml 980 ml Output Total 400 ml 200 ml Balance -160 ml -100 ml 360 ml 240 ml 980 ml Intake Oral 240 ml 360 ml 240 ml 880 ml IV Total 100 ml 100 ml Output Urine Total 400 ml 200 ml # Voids 3 6 3 4 # Bowel Movements 1 1 Result Diagram: 11/28/17 0555 11/28/17 0555 Objective Remarks GENERAL: MBMNWM, mild sob SKIN: Warm and dry. HEAD: Normocephalic. EYES: No scleral icterus. No injection or drainage. NECK: Supple, trachea midline. No JVD or lymphadenopathy. CARDIOVASCULAR: Regular rate and rhythm without murmurs, gallops, or rubs. RESPIRATORY: Breath sounds equal bilaterally. No accessory muscle use. GASTROINTESTINAL: Abdomen soft, non-tender, nondistended. Abd wound dressed MUSCULOSKELETAL: No cyanosis, or edema. BACK: Nontender without obvious deformity. No CVA tenderness. A/P Assessment and Plan IMPRESSION: 1. Bilateral lung infiltrate with interstitial pattern and appearing fibrotic changes, possibly has acute respiratory distress syndrome and also possible underlying interstitial lung disease. 2. History of nicotine use. 3. Cirrhosis of the liver, status post transjugular intrahepatic portosystemic shunt procedure. 4. Crohn's disease. PLAN Stable on RA Keep sat 90-94% Wean Solumedrol Cont Abx Replace K+ Zach Mas MD November 28, 2017 18:36
[2017-11-28 20:00] VITALS: BP 116/57; PULSE 77; RESP 20; TEMP 97.7; O2SAT 95
[2017-11-29] VITALS (8 sets, daily range): BP systolic 113–143; BP diastolic 56–68; PULSE 55–92; RESP 17–20; TEMP 97.1–98.3; O2SAT 95–99
[2017-11-29] MEDS: methylPREDNISolone SOD SUCC 40 MG/1 ML VIAL IV PUSH SCH ×3 (00:06→20:37)
[2017-11-29] MEDS: POTASSIUM CHLORIDE INJ 30 MEQ in DEXTROSE 5% IN WATE 1000ML INJ 1,000 ML IV SCH ×6 (02:09→20:43)
[2017-11-29] MEDS: CHLORHEXIDINE GLUCONATE 2 % 1 PACK (2 CLOTHS) TOP SCH (04:00)
[2017-11-29 05:26] LABS: MEAN CELL VOLUME 87.5 FL (80.0-100.0); MEAN CORPUSCULAR HEMOGLOBIN 27.9 PG (27.0-34.0); MEAN CORPUSCULAR HGB CONC 31.9 % (32.0-36.0); MEAN PLATELET VOLUME 8.8 FL (7.0-11.0); PLATELET COUNT 148 TH/MM3 (150-450); RED BLOOD COUNT 2.86 MIL/MM3 (4.50-5.90); RED CELL DISTRIBUTION WIDTH 19.9 % (11.6-17.2); WHITE BLOOD COUNT 25.8 TH/MM3 (4.0-11.0)
[2017-11-29 05:52] LABS: BICARBONATE 16.1 MEQ/L (21.0-32.0); CALCIUM 8.8 MG/DL (8.5-10.1); CREATININE 0.78 MG/DL (0.60-1.30); DIRECT BILIRUBIN ADULT 0.8 MG/DL (0.0-0.2); MAGNESIUM 2.2 MG/DL (1.5-2.5)
[2017-11-29 05:55] LABS: INDIRECT BILIRUBIN 0.6 MG/DL (0.0-0.8); TOTAL BILIRUBIN ADULT 1.4 MG/DL (0.2-1.0); TOTAL PROTEIN 4.4 GM/DL (6.4-8.2)
--- NOTE | 2017-11-29 08:31 | HHI.PR ---
Subjective Remarks C/R Surg afebrile, VSS debi PO less SOB - on RA UO not recorded +BM Objective - Vital Signs Date Time Temp Pulse Resp B/P (MAP) Pulse Ox O2 Delivery O2 Flow Rate FiO2 11/29/17 04:00 97.1 60 20 133/ 99 11/28/17 22:56 Room Air 11/26/17 09:47 21 11/25/17 07:46 2.00 Result Diagram: 11/29/17 0508 11/29/17 0508 Objective Remarks PE alert Abd - soft, open mid portion, clean - no granulation tissue, min tympany wound dressed A/P Discharge Planning Imp: SOB - stable wound clean - need to keep moist, abd binder - ? wound coverage ?rehab placement Ashwin Lane MD November 29, 2017 08:31
[2017-11-29] MEDS: SODIUM CHLORIDE 0.9% FLUSH 10 ML FLUSH IV FLUSH SCH ×2 (09:00→20:37)
[2017-11-29] MEDS: FAMOTIDINE 20 MG TAB PO SCH ×2 (09:12→20:34)
[2017-11-29] MEDS: FLUCONAZOLE 200 MG PREMIX BAG 100 ML IV SCH (09:15)
[2017-11-29] MEDS: ACETAMINOPHEN/HYDROcodone 325 MG/7.5 MG TAB PO PRN (09:18)
[2017-11-29] MEDS: POTASSIUM CHLORIDE 25 MEQ EFFERVESCENT TAB PO SCH (09:19)
[2017-11-29] MEDS: NYSTATIN SUSP 500,000 U/5 ML CUP SWISH-SWAL SCH ×4 (09:21→20:34)
[2017-11-29] MEDS: LACTULOSE SYRUP 20 GM/30 ML CUP PO SCH ×4 (09:21→20:34)
[2017-11-29] MEDS: ENOXAPARIN SODIUM 40 MG/0.4 ML SYRINGE SQ SCH (11:37)
--- NOTE | 2017-11-29 12:42 | HHI.PR ---
Subjective Remarks The patient was lying in bed comfortably. He denied any acute complaints. Nursing reports he has been taking his lactulose with some effort. He has been confused. Objective Vitals Vital Signs Date Time Temp Pulse Resp B/P (MAP) Pulse Ox O2 Delivery O2 Flow Rate FiO2 11/29/17 12:00 98.3 55 17 113/56 (75) 95 11/29/17 08:00 97.5 61 17 133/60 (84) 98 11/29/17 04:00 97.1 60 20 133/ 99 11/29/17 00:00 97.4 70 20 134/68 (90) 98 11/29/17 00:00 63 11/28/17 22:56 Room Air 11/28/17 20:00 97.7 77 20 116/57 (76) 95 11/28/17 16:00 97.8 60 18 129/61 (83) 99 I/O 11/28/17 11/28/17 11/28/17 11/29/17 11/29/17 11/29/17 06:59 14:59 22:59 06:59 14:59 22:59 Intake Total 240 ml 980 ml 0 ml Balance 240 ml 980 ml 0 ml Intake Oral 240 ml 880 ml 0 ml IV Total 100 ml # Voids 3 4 4 # Bowel Movements 1 0 Result Diagram: 11/29/17 0508 11/29/17 0508 Imaging Last Impressions Liver Ultrasound 11/28/17 0000 Signed Impressions: CONCLUSION: Head CT 11/27/17 0000 Signed Impressions: Service Date/Time: Monday, November 27, 2017 12:57 - CONCLUSION: 1. Stable exam 2. No evidence of acute infarct, hemorrhage, mass or edema. Star Patterson MD Chest X-Ray 11/24/17 0600 Signed Impressions: Service Date/Time: Friday, November 24, 2017 03:30 - CONCLUSION: Considerable improvement but residual bilateral infiltrates. Lalo Zavala Jr., MD Chest CT 11/20/17 0000 Signed Impressions: Service Date/Time: Monday, November 20, 2017 10:54 - CONCLUSION: Increasing coarse interstitial changes in both lungs with small bilateral pleural effusions. Interstitial pattern in the base is moving towards it honeycomb pattern. Hernando Rodrigez MD FACR Abdomen Ultrasound 11/11/17 0000 Signed Impressions: Service Date/Time: Saturday, November 11, 2017 14:19 - CONCLUSION: Trace ascites in the abdomen. Keegan Almaraz MD Abdomen/Pelvis CT 11/09/17 0000 Signed Impressions: Service Date/Time: Friday, November 10, 2017 11:22 - CONCLUSION: Increasing edema in the cecum and terminal ileum of uncertain etiology. Increasing stool in the sigmoid colon Enlarging right inguinal hernia Slight increase in amount of ascites. Hernando Rodrigez MD FACR Objective Remarks General: Cachectic male in no acute distress. Heart: Regular rate and rhythm. No murmur. Lungs: Clear to auscultation bilaterally. No wheezes, rales, or rhonchi. Breathing is nonlabored. Abdomen: Soft, nontender, nondistended. Binder in place. Extremities: No lower extremity edema. Psych: Calm. Neuro: Normal speech. No focal deficits noted. Confused. Procedures 11/10/17 central line placement 11/10/17 pigtail chest tube placement A/P Problem List: (1) History of resection of terminal ileum ICD Code: Z98.890 - Other specified postprocedural states; Z90.49 - Acquired absence of other specified parts of digestive tract Status: Acute (2) Tobacco abuse ICD Code: Z72.0 - Tobacco use Status: Acute (3) Wound dehiscence ICD Code: T81.30XA - Disruption of wound, unspecified, initial encounter; Z90.49 - Acquired absence of other specified parts of digestive tract Status: Acute (4) Crohns disease ICD Code: K50.90 - Crohn's disease, unspecified, without complications Status: Acute (5) Hypokalemia ICD Code: E87.6 - Hypokalemia Status: Acute (6) FEN Status: Acute (7) Leukocytosis ICD Code: D72.829 - Elevated white blood cell count, unspecified Status: Resolved Assessment and Plan Acute hypoxic respiratory failure/ ARDS Improved. Appreciate pulmonology recommendations. - wean steroids. - oxygen and nebs as needed. - IS. - encourage ambulation. Status post colon resection with wound dehiscence The pt has Crohn's disease. Colorectal surgery consult appreciated. - Management per colorectal surgery. Leukocytosis Likely secondary to steroids. - follow CBC. Improving. Anemia/ thrombocytopenia Question underlying bone marrow process. May be s/t chronic disease. - follow CBC. - consider hematology eval. Cachexia/ failure to thrive - Encourage oral intake. Deconditioning - Continue physical therapy, occupational therapy. Elevated LFTs/ Hepatic encephalopathy Ammonia level elevated. Liver US without acute process. Hepatitis profile negative. - start standing lactulose. - d/c fluconazole. - trend LFTs. Hypernatremia Na 153. Improving. - d/c Lasix. - D5W. - follow BMP. DVT prophylaxis: Lovenox Problem Qualifiers (1) Crohns disease: Qualified Codes: K50.818 - Crohn's disease of both small and large intestine with other complication Francis Levi DO November 29, 2017 12:42
--- NOTE | 2017-11-29 20:13 | HHI.PR ---
Subjective Remarks 52 YOWM with Crohn's dis, Cirrohosis, s/p TIPS, abd surgery,ARDS Breathing better Tolerates PO Somewhat confused Weaned to RA Comfortable, sleeping Objective Vital Signs Vital Signs Date Time Temp Pulse Resp B/P (MAP) Pulse Ox O2 Delivery O2 Flow Rate FiO2 11/29/17 16:00 98.0 64 17 143/68 (93) 99 11/29/17 12:00 98.3 55 17 113/56 (75) 95 11/29/17 09:09 98 Room Air 11/29/17 08:00 97.5 61 17 133/60 (84) 98 11/29/17 07:41 59 11/29/17 04:00 97.1 60 20 133/ 99 11/29/17 00:00 97.4 70 20 134/68 (90) 98 11/29/17 00:00 63 11/28/17 22:56 Room Air I/O 11/28/17 11/28/17 11/28/17 11/29/17 11/29/17 11/29/17 07:00 15:00 23:00 07:00 15:00 23:00 Intake Total 240 ml 980 ml 0 ml 1100 ml 360 ml Balance 240 ml 980 ml 0 ml 1100 ml 360 ml Intake Oral 240 ml 880 ml 0 ml 360 ml IV Total 100 ml 1100 ml # Voids 3 4 4 3 # Bowel Movements 1 0 Result Diagram: 11/29/17 0508 11/29/17 0508 Objective Remarks GENERAL: MBMNWM, mild sob SKIN: Warm and dry. HEAD: Normocephalic. EYES: No scleral icterus. No injection or drainage. NECK: Supple, trachea midline. No JVD or lymphadenopathy. CARDIOVASCULAR: Regular rate and rhythm without murmurs, gallops, or rubs. RESPIRATORY: Breath sounds equal bilaterally. No accessory muscle use. GASTROINTESTINAL: Abdomen soft, non-tender, nondistended. Abd wound dressed MUSCULOSKELETAL: No cyanosis, or edema. BACK: Nontender without obvious deformity. No CVA tenderness. A/P Assessment and Plan IMPRESSION: 1. Bilateral lung infiltrate with interstitial pattern and appearing fibrotic changes, possibly has acute respiratory distress syndrome and also possible underlying interstitial lung disease. 2. History of nicotine use. 3. Cirrhosis of the liver, status post transjugular intrahepatic portosystemic shunt procedure. 4. Crohn's disease. PLAN Stable on RA Keep sat 90-94% Wean Solumedrol Cont Abx DC plans underway Zach Mas MD November 29, 2017 20:13
[2017-11-30] VITALS (7 sets, daily range): BP systolic 116–149; BP diastolic 61–78; PULSE 54–65; RESP 16–20; TEMP 97.3–98.4; O2SAT 99–100
[2017-11-30] MEDS: ACETAMINOPHEN/HYDROcodone 325 MG/7.5 MG TAB PO PRN (00:18)
[2017-11-30] MEDS: CHLORHEXIDINE GLUCONATE 2 % 1 PACK (2 CLOTHS) TOP SCH (04:00)
[2017-11-30 08:23] LABS: AUTOMATED NEUTROPHIL # 18.2 TH/MM3 (1.8-7.7); BASOPHIL # 0.1 TH/MM3 (0-0.2); BASOPHIL % 0.3 % (0.0-2.0); HEMATOCRIT 22.7 % (39.0-51.0); HEMOGLOBIN 7.2 GM/DL (13.0-17.0); LYMPH % 6.1 % (9.0-44.0); LYMPHOCYTE # 1.3 TH/MM3 (1.0-4.8); MEAN CELL VOLUME 87.2 FL (80.0-100.0); MEAN CORPUSCULAR HEMOGLOBIN 27.8 PG (27.0-34.0); MEAN CORPUSCULAR HGB CONC 31.8 % (32.0-36.0); MEAN PLATELET VOLUME 8.3 FL (7.0-11.0); MONO % 6.2 % (0.0-8.0); MONOCYTE # 1.3 TH/MM3 (0-0.9); NEUT % 87.4 % (16.0-70.0); PLATELET COUNT 131 TH/MM3 (150-450); RED CELL DISTRIBUTION WIDTH 19.2 % (11.6-17.2); WHITE BLOOD COUNT 20.9 TH/MM3 (4.0-11.0)
[2017-11-30] MEDS: POTASSIUM CHLORIDE INJ 30 MEQ in DEXTROSE 5% IN WATE 1000ML INJ 1,000 ML IV SCH ×4 (08:36→21:55)
[2017-11-30 08:38] LABS: ALBUMIN 1.8 GM/DL (3.4-5.0); ALT (GPT) 190 U/L (12-78); AST (GOT) 76 U/L (15-37); BICARBONATE 14.8 MEQ/L (21.0-32.0); BLOOD UREA NITROGEN 18 MG/DL (7-18); CALCIUM 8.5 MG/DL (8.5-10.1); CHLORIDE 116 MEQ/L (98-107); CREATININE 0.77 MG/DL (0.60-1.30); GLOMERULAR FILTRATION RATE 106 ML/MIN (>89); GLUCOSE,RANDOM 117 MG/DL (74-106); MAGNESIUM 2.1 MG/DL (1.5-2.5); SODIUM (NA) 142 MEQ/L (136-145)
[2017-11-30 08:41] LABS: ALKALINE PHOSPHATASE 334 U/L (45-117); TOTAL BILIRUBIN ADULT 1.3 MG/DL (0.2-1.0)
[2017-11-30] MEDS: SODIUM CHLORIDE 0.9% FLUSH 10 ML FLUSH IV FLUSH SCH ×2 (10:15→21:00)
[2017-11-30] MEDS: NYSTATIN SUSP 500,000 U/5 ML CUP SWISH-SWAL SCH ×4 (10:16→21:00)
[2017-11-30] MEDS: LACTULOSE SYRUP 20 GM/30 ML CUP PO SCH ×4 (10:16→21:54)
[2017-11-30] MEDS: methylPREDNISolone SOD SUCC 40 MG/1 ML VIAL IV PUSH SCH ×2 (10:16→21:54)
[2017-11-30] MEDS: FAMOTIDINE 20 MG TAB PO SCH ×2 (10:16→21:00)
[2017-11-30] MEDS: ENOXAPARIN SODIUM 40 MG/0.4 ML SYRINGE SQ SCH (12:08)
--- NOTE | 2017-11-30 13:17 | HHI.PR ---
Subjective Remarks The patient was working with physical therapy. He seem to be having some pain. He said he was doing all right. He was a little confused. Discussed with nursing who stated that his ammonia level was elevated. Objective Vitals Vital Signs Date Time Temp Pulse Resp B/P (MAP) Pulse Ox O2 Delivery O2 Flow Rate FiO2 11/30/17 12:00 98.4 57 19 143/66 (91) 100 11/30/17 08:00 97.6 54 18 121/61 (81) 99 11/30/17 04:00 97.3 56 20 116/66 (83) 100 11/30/17 00:00 97.7 63 20 133/69 (90) 99 11/29/17 20:00 97.9 92 20 133/60 (84) 98 11/29/17 20:00 55 11/29/17 16:00 98.0 64 17 143/68 (93) 99 I/O 11/29/17 11/29/17 11/29/17 11/30/17 11/30/17 11/30/17 07:00 15:00 23:00 07:00 15:00 23:00 Intake Total 0 ml 1100 ml 1375 ml 0 ml 400 ml Balance 0 ml 1100 ml 1375 ml 0 ml 400 ml Intake Oral 0 ml 360 ml 0 ml IV Total 1100 ml 1015 ml 400 ml # Voids 4 3 5 # Bowel Movements 0 1 Result Diagram: 11/30/17 0753 11/30/17 0753 Objective Remarks General: Cachectic male in no acute distress. Heart: Regular rate and rhythm. No murmur. Lungs: Clear to auscultation bilaterally. No wheezes, rales, or rhonchi. Breathing is nonlabored. Abdomen: Soft, nontender, nondistended. Binder in place. Extremities: No lower extremity edema. Psych: Calm. Neuro: Normal speech. No focal deficits noted. Confused. Procedures 11/10/17 central line placement 11/10/17 pigtail chest tube placement A/P Problem List: (1) History of resection of terminal ileum ICD Code: Z98.890 - Other specified postprocedural states; Z90.49 - Acquired absence of other specified parts of digestive tract Status: Acute (2) Tobacco abuse ICD Code: Z72.0 - Tobacco use Status: Acute (3) Wound dehiscence ICD Code: T81.30XA - Disruption of wound, unspecified, initial encounter; Z90.49 - Acquired absence of other specified parts of digestive tract Status: Acute (4) Crohns disease ICD Code: K50.90 - Crohn's disease, unspecified, without complications Status: Acute (5) Hypokalemia ICD Code: E87.6 - Hypokalemia Status: Acute (6) FEN Status: Acute (7) Leukocytosis ICD Code: D72.829 - Elevated white blood cell count, unspecified Status: Resolved Assessment and Plan Acute hypoxic respiratory failure/ ARDS Improved. Appreciate pulmonology recommendations. - wean steroids. - oxygen and nebs as needed. - IS. - encourage ambulation. Elevated LFTs/ Hepatic encephalopathy Ammonia level markedly elevated. Liver US without acute process. Hepatitis profile negative. - continue standing lactulose. - d/c fluconazole. - trend LFTs. - consider GI eval. Status post colon resection with wound dehiscence The pt has Crohn's disease. Colorectal surgery consult appreciated. - Management per colorectal surgery. Leukocytosis Likely secondary to steroids. - follow CBC. Improving. Anemia/ thrombocytopenia Question underlying bone marrow process. May be s/t chronic disease. - follow CBC. May require transfusion in AM. - consider hematology eval. Cachexia/ failure to thrive - Encourage oral intake. Deconditioning - Continue physical therapy, occupational therapy. Hypernatremia Na 153. Improving. - d/c Lasix. - D5W. - follow BMP. DVT prophylaxis: Lovenox Problem Qualifiers (1) Crohns disease: Qualified Codes: K50.818 - Crohn's disease of both small and large intestine with other complication Francis Levi DO November 30, 2017 13:17
--- NOTE | 2017-11-30 20:13 | HHI.PR ---
Subjective Remarks 52 YOWM with Crohn's dis, Cirrohosis, s/p TIPS, abd surgery,ARDS Breathing better Tolerates PO Somevwhat confused Weaned to RA Objective Vital Signs Vital Signs Date Time Temp Pulse Resp B/P (MAP) Pulse Ox O2 Delivery O2 Flow Rate FiO2 11/30/17 16:00 97.6 62 18 149/78 (101) 99 11/30/17 12:00 98.4 57 19 143/66 (91) 100 11/30/17 08:00 97.6 54 18 121/61 (81) 99 11/30/17 04:00 97.3 56 20 116/66 (83) 100 11/30/17 00:00 97.7 63 20 133/69 (90) 99 I/O 11/29/17 11/29/17 11/29/17 11/30/17 11/30/17 11/30/17 07:00 15:00 23:00 07:00 15:00 23:00 Intake Total 0 ml 1100 ml 1375 ml 0 ml 400 ml 240 ml Balance 0 ml 1100 ml 1375 ml 0 ml 400 ml 240 ml Intake Oral 0 ml 360 ml 0 ml 240 ml IV Total 1100 ml 1015 ml 400 ml # Voids 4 3 5 2 # Bowel Movements 0 1 Result Diagram: 11/30/17 0753 11/30/17 0753 Objective Remarks GENERAL: MBMNWM, mild sob SKIN: Warm and dry. HEAD: Normocephalic. EYES: No scleral icterus. No injection or drainage. NECK: Supple, trachea midline. No JVD or lymphadenopathy. CARDIOVASCULAR: Regular rate and rhythm without murmurs, gallops, or rubs. RESPIRATORY: Breath sounds equal bilaterally. No accessory muscle use. GASTROINTESTINAL: Abdomen soft, non-tender, nondistended. Abd wound dressed MUSCULOSKELETAL: No cyanosis, or edema. BACK: Nontender without obvious deformity. No CVA tenderness. A/P Assessment and Plan IMPRESSION: 1. Bilateral lung infiltrate with interstitial pattern and appearing fibrotic changes, possibly has acute respiratory distress syndrome and also possible underlying interstitial lung disease. 2. History of nicotine use. 3. Cirrhosis of the liver, status post transjugular intrahepatic portosystemic shunt procedure. 4. Crohn's disease. PLAN Stable on RA Keep sat 90-94% Wean Solumedrol Cont Abx Zach Mas MD November 30, 2017 20:13
[2017-12-01] VITALS (10 sets, daily range): BP systolic 121–142; BP diastolic 59–72; PULSE 54–107; RESP 18–20; TEMP 97.4–98.1; O2SAT 96–100
[2017-12-01] MEDS: CHLORHEXIDINE GLUCONATE 2 % 1 PACK (2 CLOTHS) TOP SCH (02:48)
[2017-12-01] MEDS: POTASSIUM CHLORIDE INJ 30 MEQ in DEXTROSE 5% IN WATE 1000ML INJ 1,000 ML IV SCH ×4 (05:00→15:03)
[2017-12-01] MEDS: SODIUM CHLORIDE 0.9% FLUSH 10 ML FLUSH IV FLUSH SCH ×2 (08:20→20:10)
[2017-12-01] MEDS: LACTULOSE SYRUP 20 GM/30 ML CUP PO SCH ×2 (08:20→13:00)
[2017-12-01] MEDS: NYSTATIN SUSP 500,000 U/5 ML CUP SWISH-SWAL SCH ×4 (08:21→20:12)
[2017-12-01] MEDS: FAMOTIDINE 20 MG TAB PO SCH ×2 (08:21→20:12)
[2017-12-01] MEDS ORDERED: methylPREDNISolone SOD SUCC 40 MG/1 ML VIAL IV PUSH SCH (09:00)
[2017-12-01] MEDS: ENOXAPARIN SODIUM 40 MG/0.4 ML SYRINGE SQ SCH (11:51)
--- NOTE | 2017-12-01 14:58 | HHI.PR ---
Subjective Remarks 52 YOWM with Crohn's dis, Cirrohosis, s/p TIPS, abd surgery,ARDS Breathing better Tolerates PO Somevwhat confused Weaned to RA no new complaint Objective Vital Signs Vital Signs Date Time Temp Pulse Resp B/P (MAP) Pulse Ox O2 Delivery O2 Flow Rate FiO2 12/01/17 12:00 97.7 54 20 142/65 (90) 100 12/01/17 08:00 97.5 56 18 135/63 (87) 99 12/01/17 04:21 61 12/01/17 00:06 63 11/30/17 20:15 60 11/30/17 20:00 98.2 65 16 149/65 (93) 100 11/30/17 16:00 97.6 62 18 149/78 (101) 99 I/O 11/30/17 11/30/17 11/30/17 12/01/17 12/01/17 12/01/17 07:00 15:00 23:00 07:00 15:00 23:00 Intake Total 0 ml 400 ml 1240 ml 650 ml 600 ml Balance 0 ml 400 ml 1240 ml 650 ml 600 ml Intake Oral 0 ml 240 ml IV Total 400 ml 1000 ml 650 ml 600 ml # Voids 5 2 3 # Bowel Movements 1 Result Diagram: 11/30/17 0753 11/30/17 0753 Objective Remarks GENERAL: MBMNWM, mild sob SKIN: Warm and dry. HEAD: Normocephalic. EYES: No scleral icterus. No injection or drainage. NECK: Supple, trachea midline. No JVD or lymphadenopathy. CARDIOVASCULAR: Regular rate and rhythm without murmurs, gallops, or rubs. RESPIRATORY: Breath sounds equal bilaterally. No accessory muscle use. GASTROINTESTINAL: Abdomen soft, non-tender, nondistended. Abd wound dressed MUSCULOSKELETAL: No cyanosis, or edema. BACK: Nontender without obvious deformity. No CVA tenderness. A/P Assessment and Plan IMPRESSION: 1. Bilateral lung infiltrate with interstitial pattern and appearing fibrotic changes, possibly has acute respiratory distress syndrome and also possible underlying interstitial lung disease. 2. History of nicotine use. 3. Cirrhosis of the liver, status post transjugular intrahepatic portosystemic shunt procedure. 4. Crohn's disease. PLAN Stable on RA Keep sat 90-94% DC Solumedrol Cont Abx Zach Mas MD December 01, 2017 14:58
--- NOTE | 2017-12-01 15:31 | HHI.PR ---
Subjective Remarks The patient was resting comfortably in bed. He seemed tired. He did not want his abdomen to be palpated. Discussed with nursing who stated that he has not been taking his lactulose. Objective Vitals Vital Signs Date Time Temp Pulse Resp B/P (MAP) Pulse Ox O2 Delivery O2 Flow Rate FiO2 12/01/17 12:00 97.7 54 20 142/65 (90) 100 12/01/17 08:00 97.5 56 18 135/63 (87) 99 12/01/17 04:21 61 12/01/17 00:06 63 11/30/17 20:15 60 11/30/17 20:00 98.2 65 16 149/65 (93) 100 11/30/17 16:00 97.6 62 18 149/78 (101) 99 I/O 11/30/17 11/30/17 11/30/17 12/01/17 12/01/17 12/01/17 06:59 14:59 22:59 06:59 14:59 22:59 Intake Total 0 ml 400 ml 1240 ml 650 ml 600 ml Balance 0 ml 400 ml 1240 ml 650 ml 600 ml Intake Oral 0 ml 240 ml IV Total 400 ml 1000 ml 650 ml 600 ml # Voids 5 2 3 # Bowel Movements 1 Result Diagram: 11/30/17 0753 11/30/17 0753 Imaging Last Impressions Liver Ultrasound 11/28/17 0000 Signed Impressions: CONCLUSION: 1. Gallstone in the gallbladder. No biliary tract obstruction. 2. Diffuse fatty infiltration of the liver. No significant change compared to the prior study. 3. Nonobstructing 1 cm stone in the lower pole of the right kidney. Head CT 11/27/17 0000 Signed Impressions: Service Date/Time: Monday, November 27, 2017 12:57 - CONCLUSION: 1. Stable exam 2. No evidence of acute infarct, hemorrhage, mass or edema. Star Patterson MD Chest X-Ray 11/24/17 0600 Signed Impressions: Service Date/Time: Friday, November 24, 2017 03:30 - CONCLUSION: Considerable improvement but residual bilateral infiltrates. Lalo Zavala Jr., MD Chest CT 11/20/17 0000 Signed Impressions: Service Date/Time: Monday, November 20, 2017 10:54 - CONCLUSION: Increasing coarse interstitial changes in both lungs with small bilateral pleural effusions. Interstitial pattern in the base is moving towards it honeycomb pattern. Hernando Rodrigez MD FACR Abdomen Ultrasound 11/11/17 0000 Signed Impressions: Service Date/Time: Saturday, November 11, 2017 14:19 - CONCLUSION: Trace ascites in the abdomen. Keegan Almaraz MD Abdomen/Pelvis CT 11/09/17 0000 Signed Impressions: Service Date/Time: Friday, November 10, 2017 11:22 - CONCLUSION: Increasing edema in the cecum and terminal ileum of uncertain etiology. Increasing stool in the sigmoid colon Enlarging right inguinal hernia Slight increase in amount of ascites. Hernando Rodrigez MD FACR Objective Remarks General: Cachectic male in no acute distress. Heart: Regular rate and rhythm. No murmur. Lungs: Clear to auscultation bilaterally. No wheezes, rales, or rhonchi. Breathing is nonlabored. Abdomen: Soft, nontender, nondistended. Binder in place. Extremities: No lower extremity edema. Psych: Calm. Neuro: Normal speech. No focal deficits noted. Confused. Lethargic. Procedures 11/10/17 central line placement 11/10/17 pigtail chest tube placement A/P Problem List: (1) History of resection of terminal ileum ICD Code: Z98.890 - Other specified postprocedural states; Z90.49 - Acquired absence of other specified parts of digestive tract Status: Acute (2) Tobacco abuse ICD Code: Z72.0 - Tobacco use Status: Acute (3) Wound dehiscence ICD Code: T81.30XA - Disruption of wound, unspecified, initial encounter; Z90.49 - Acquired absence of other specified parts of digestive tract Status: Acute (4) Crohns disease ICD Code: K50.90 - Crohn's disease, unspecified, without complications Status: Acute (5) Hypokalemia ICD Code: E87.6 - Hypokalemia Status: Acute (6) FEN Status: Acute (7) Leukocytosis ICD Code: D72.829 - Elevated white blood cell count, unspecified Status: Resolved Assessment and Plan Acute hypoxic respiratory failure/ ARDS Improved. Appreciate pulmonology recommendations. - wean steroids. - oxygen and nebs as needed. - IS. - encourage ambulation. Elevated LFTs/ Hepatic encephalopathy Ammonia level markedly elevated. Liver US without acute process. Hepatitis profile negative. - place NGT and continue standing lactulose. Also give lactulose NE x 1. - d/c fluconazole. - trend LFTs. - consider GI eval. - diet per ST. Currently NPO. May need tube feeds soon. Status post colon resection with wound dehiscence The pt has Crohn's disease. Colorectal surgery consult appreciated. - Management per colorectal surgery. Leukocytosis Likely secondary to steroids. - follow CBC. Improving. Anemia/ thrombocytopenia Question underlying bone marrow process. May be s/t chronic disease. - follow CBC and transfuse as needed. - consider hematology eval. Deconditioning - Continue physical therapy, occupational therapy. Hypernatremia Na 153. Improving. - d/c Lasix. - D5W. - follow BMP. DVT prophylaxis: Lovenox Problem Qualifiers (1) Crohns disease: Qualified Codes: K50.818 - Crohn's disease of both small and large intestine with other complication Francis Levi DO December 01, 2017 15:31
[2017-12-01] MEDS ORDERED: LACTULOSE LIQ 300 ML in WATER STERILE FOR IRR BTL 700 ML RECTAL ONE (16:00)
[2017-12-01 17:22] LABS: HEMOGLOBIN 11.1 GM/DL (13.0-17.0); MEAN CELL VOLUME 87.4 FL (80.0-100.0); MEAN CORPUSCULAR HEMOGLOBIN 28.5 PG (27.0-34.0); MEAN CORPUSCULAR HGB CONC 32.6 % (32.0-36.0); MEAN PLATELET VOLUME 8.9 FL (7.0-11.0); PLATELET COUNT 143 TH/MM3 (150-450); RED BLOOD COUNT 3.89 MIL/MM3 (4.50-5.90); WHITE BLOOD COUNT 33.3 TH/MM3 (4.0-11.0)
[2017-12-01] MEDS: LACTULOSE SYRUP 20 GM/30 ML CUP NG SCH ×2 (17:41→20:01)
[2017-12-01 17:46] LABS: ALBUMIN 2.1 GM/DL (3.4-5.0); BICARBONATE 11.8 MEQ/L (21.0-32.0); CALCIUM 8.6 MG/DL (8.5-10.1); CREATININE 0.83 MG/DL (0.60-1.30); DIRECT BILIRUBIN ADULT 0.8 MG/DL (0.0-0.2)
[2017-12-01 17:47] LABS: INDIRECT BILIRUBIN 1.4 MG/DL (0.0-0.8); TOTAL BILIRUBIN ADULT 2.2 MG/DL (0.2-1.0); TOTAL PROTEIN 4.8 GM/DL (6.4-8.2)
[2017-12-01] MEDS ORDERED: DIATRIZOATE MEGLUM/DIATRIZOATE SOD 9 ML CUP PO ONE (19:15)
[2017-12-01] MEDS: ALPRAZolam 0.5 MG TAB PO PRN (20:01)
[2017-12-01] MEDS: SODIUM BICARBONATE 8.4% INJ 150 MEQ in DEXTROSE 5% IN WATE 1000ML INJ 1,000 ML IV SCH ×2 (20:12)
[2017-12-01] MEDS ORDERED: SODIUM BICARBONATE 8.4% INJ 50 MEQ/50 ML SYR IV PUSH ONE ×2 (20:30→20:45)
[2017-12-01] MEDS ORDERED: IOHEXOL 350 MG/ML 10 ML VIAL (for RAD DIAG) IVCONTRAST ONE (22:47)
[2017-12-01] MEDS ORDERED: PANTOPRAZOLE INJ 80 MG in SODIUM CHLORIDE 0.9% INJ 100 ML IV SCH (23:00)
--- NOTE | 2017-12-01 23:07 | RADRPT ---
EXAM DATE: 12/01/2017 10:49 PM EDT AGE/SEX: 52 years / Male INDICATIONS: Abdominal pain, hematemesis. CLINICAL DATA: This is the patient's initial encounter. Patient reports that signs and symptoms have been present for 1 day and indicates a pain score of Nonresponsive. MEDICAL/SURGICAL HISTORY: Cardiovascular disease. Pancreatitis. Crohns disease. Hiatal herni a. Colon resection. ORAL CONTRAST: Patient refused oral contrast. RADIATION DOSE: 4.53 CTDI (mGy) COMPARISON: [facility], CT ABDOMEN & PELVIS W CONTRAST, 11/04/2017. [facility], CT ABDOMEN & PELVIS W CONTRA ST, 10/15/2017. [facility], CT ABDOMEN & PELVIS W CONTRAST, 09/09/2017. [facility], CT ABDOMEN & PELVIS W CONTRAST, 08/24/2017. . TECHNIQUE: Multiple contiguous axial images were obtained through the abdomen and pelvis following b olus infusion of 100 ml Omnipaque 350 (iohexol) nonionic water-soluble contrast as a single exam do se. Patient refused oral contrast. Using automated exposure control and adjustment of the mA and/or kV according to patient size, the radiation dose was kept as low as reasonably achievable to obtain o ptimal diagnostic quality images. FINDINGS: Lower Lungs: The visualized lower lungs are clear. Liver: TIPS shunt in place. Tiny calcified gallstone unchanged from prior. No focal lesions within th e liver. Spleen: Homogeneous density without enlargement. Pancreas: Unremarkable without mass or calcification. Kidneys: Normal in size and shape. No evidence of mass or hydronephrosis. Stable 6 mm nonobstructing stone lower pole right kidney. Adrenal Glands: Unremarkable. Aorta: The aorta and proximal iliac vessels are grossly unremarkable without aneurysmal dilation. Bowel/Mesentery: NG tube in place. There is prominent dilated loops of small and large bowel with sc attered stool within the colon. Small bowel loops measure up to 3.2 cm in diameter and there is thick ening of the valvulae conniventes. No evidence of free fluid. No evidence of free intraperitoneal gas . Abdominal Wall: Intact. Retroperitoneum: No evidence of adenopathy in the retrocrural, para-aortic, or deep pelvic regions. Bladder: Contours are smooth. Reproductive Organs: No abnormal masses or calcifications seen. Inguinal: The inguinal region is unremarkable without evidence of adenopathy. Bony Structures: Unremarkable. CONCLUSION: 1. The patient has had [address] scans since August 2017. All the scans have demonstrate d varying degrees of small bowel wall thickening and gaseous distention of small and large bowel. On today's examination, the loops of small and large bowel are predominantly gas-distended. 2. NG tube in place. 3. Tips catheter, gallstone, and nonobstructing right renal stone, stable in appearance. Electronically signed by: Lalo Heard MD 12/01/2017 11:05 PM EDT
[2017-12-01 23:36] LABS: HEMATOCRIT 23.9 % (39.0-51.0); HEMOGLOBIN 7.7 GM/DL (13.0-17.0)
[2017-12-01 23:49] LABS: INTERNATIONAL NORMALIZED RATIO 1.6 RATIO; PROTHROMBIN TIME - PATIENT 15.7 SEC (9.8-11.6)
[2017-12-02] VITALS (8 sets, daily range): BP systolic 95–126; BP diastolic 53–62; PULSE 80–129; RESP 16–22; TEMP 97.1–99.1; O2SAT 98–100
[2017-12-02] MEDS ORDERED: SODIUM CHLOR 0.9% 250 ML INJ 250 ML IV ONE (00:15)
[2017-12-02] MEDS: CHLORHEXIDINE GLUCONATE 2 % 1 PACK (2 CLOTHS) TOP SCH ×2 (03:42→21:32)
[2017-12-02] MEDS: ALPRAZolam 0.5 MG TAB PO PRN (04:18)
[2017-12-02] MEDS ORDERED: LORazepam 2 MG/ML VIAL IV PUSH ONE (04:45)
[2017-12-02] MEDS ORDERED: LACTULOSE LIQ 300 ML in WATER STERILE FOR IRR BTL 700 ML RECTAL ONE (06:00)
[2017-12-02 07:28] LABS: HEMATOCRIT 31.6 % (39.0-51.0); HEMOGLOBIN 10.4 GM/DL (13.0-17.0); MEAN CELL VOLUME 86.3 FL (80.0-100.0); MEAN CORPUSCULAR HEMOGLOBIN 28.4 PG (27.0-34.0); MEAN CORPUSCULAR HGB CONC 32.9 % (32.0-36.0); MEAN PLATELET VOLUME 8.5 FL (7.0-11.0); PLATELET COUNT 136 TH/MM3 (150-450); RED BLOOD COUNT 3.66 MIL/MM3 (4.50-5.90); RED CELL DISTRIBUTION WIDTH 17.6 % (11.6-17.2); WHITE BLOOD COUNT 47.9 TH/MM3 (4.0-11.0)
[2017-12-02 08:05] LABS: BICARBONATE 19.1 MEQ/L (21.0-32.0); CALCIUM 8.7 MG/DL (8.5-10.1); CREATININE 1.13 MG/DL (0.60-1.30); DIRECT BILIRUBIN ADULT 1.6 MG/DL (0.0-0.2); INDIRECT BILIRUBIN 1.6 MG/DL (0.0-0.8); MAGNESIUM 1.8 MG/DL (1.5-2.5); TOTAL BILIRUBIN ADULT 3.2 MG/DL (0.2-1.0); TOTAL PROTEIN 4.5 GM/DL (6.4-8.2)
[2017-12-02] MEDS ORDERED: POTASSIUM CHLORIDE 25 MEQ EFFERVESCENT TAB NG ONE (08:15)
[2017-12-02] MEDS ORDERED: POTASSIUM CHLOR 20 MEQ PREMIX 100 ML IV ONE (08:15)
[2017-12-02 08:41] LABS: TROPONIN I 0.07 NG/ML (0.02-0.05)
[2017-12-02] MEDS: SODIUM CHLORIDE 0.9% FLUSH 10 ML FLUSH IV FLUSH SCH ×2 (09:00→21:18)
[2017-12-02] MEDS: NYSTATIN SUSP 500,000 U/5 ML CUP SWISH-SWAL SCH ×4 (09:00→21:31)
[2017-12-02] MEDS ORDERED: Vancomycin Consult Pharmacy 1 EA OTHER SCH (09:15)
[2017-12-02] MEDS ORDERED: PIPERACIL-TAZO 4.5 GM PREMIX 100 ML IV SCH (10:00)
[2017-12-02 10:25] LABS: PHOSPHORUS 2.1 MG/DL (2.5-4.9)
[2017-12-02] MEDS: LACTULOSE SYRUP 20 GM/30 ML CUP NG SCH ×4 (10:26→21:32)
--- NOTE | 2017-12-02 11:23 | HHI.PR ---
Subjective Remarks The patient was resting in bed. He had an NG tube in place. He was lethargic but arousable to questions. He did not seem to be in any acute distress. Discussed with nursing at the bedside. Objective Vitals Vital Signs Date Time Temp Pulse Resp B/P (MAP) Pulse Ox O2 Delivery O2 Flow Rate FiO2 12/02/17 08:00 99.1 116 16 95/53 (67) 98 12/02/17 04:25 100 Nasal Cannula 2.00 12/02/17 04:18 129 12/02/17 04:00 97.9 109 22 111/62 (78) 100 12/02/17 03:00 97.4 108 20 97/57 100 12/02/17 00:08 97.4 101 20 126/57 (80) 100 12/01/17 23:46 103 12/01/17 20:20 97.4 107 20 135/72 (93) 96 12/01/17 20:00 98.1 95 20 121/65 (83) 99 12/01/17 19:51 92 12/01/17 16:00 97.8 64 20 128/59 (82) 100 12/01/17 15:43 54 12/01/17 12:00 97.7 54 20 142/65 (90) 100 I/O 12/01/17 12/01/17 12/01/17 12/02/17 12/02/17 12/02/17 06:59 14:59 22:59 06:59 14:59 22:59 Intake Total 650 ml 600 ml 1600 ml 656 ml Output Total 400 ml 550 ml Balance 650 ml 600 ml 1200 ml 106 ml Intake Oral 0 ml IV Total 650 ml 600 ml 1600 ml 256 ml Packed Cells 400 ml Output Urine Total 400 ml Gastric Drainage Total 150 ml 150 ml Emesis 250 ml # Voids 3 6 3 # Bowel Movements 4 2 Result Diagram: 12/02/17 0706 12/02/17 0706 Objective Remarks General: Cachectic male in no acute distress. HEENT: NG tube in place. Heart: Tachycardic. No murmur. Lungs: Clear to auscultation bilaterally. No wheezes, rales, or rhonchi. Breathing is nonlabored. Abdomen: Soft, diffusely tender, nondistended. Binder in place. Extremities: No lower extremity edema. Psych: Calm. Neuro: Normal speech. No focal deficits noted. Confused. Lethargic. Procedures 11/10/17 central line placement 11/10/17 pigtail chest tube placement A/P Problem List: (1) History of resection of terminal ileum ICD Code: Z98.890 - Other specified postprocedural states; Z90.49 - Acquired absence of other specified parts of digestive tract Status: Acute (2) Tobacco abuse ICD Code: Z72.0 - Tobacco use Status: Acute (3) Wound dehiscence ICD Code: T81.30XA - Disruption of wound, unspecified, initial encounter; Z90.49 - Acquired absence of other specified parts of digestive tract Status: Acute (4) Crohns disease ICD Code: K50.90 - Crohn's disease, unspecified, without complications Status: Acute (5) Hypokalemia ICD Code: E87.6 - Hypokalemia Status: Acute (6) FEN Status: Acute (7) Leukocytosis ICD Code: D72.829 - Elevated white blood cell count, unspecified Status: Resolved Assessment and Plan Elevated LFTs/ Hepatic encephalopathy/ GIB Ammonia level markedly elevated. Liver US without acute process. Hepatitis profile negative. CT abdomen without acute pathology, gaseous distention noted. Has had reports of coffee ground emesis. - continue standing lactulose via NG tube. - trend LFTs. - GI eval. - PPI. - diet per ST. Currently NPO. May need tube feeds soon. Dietary consult requested. Lactic acidosis/ Sepsis/ Marked leukocytosis Acidosis be s/t hepatic encephalopathy, GIB, sepsis. - IVFs with sodium bicarb. - trend lactic acid. - continue IV vancomycin and Zosyn. - ID consult requested. - check a C diff PCR. - check HIV serology. - trend trops. EKG with NSR. Acute hypoxic respiratory failure/ ARDS Improved. Appreciate pulmonology recommendations. - d/c steroids. - oxygen and nebs as needed. - IS. - encourage ambulation. Status post colon resection with wound dehiscence The pt has Crohn's disease. Colorectal surgery consult appreciated. - Management per colorectal surgery. Anemia/ thrombocytopenia Question underlying bone marrow process. May be s/t chronic disease. - follow CBC and transfuse as needed. S/p one unit 12/02. Deconditioning The pt is very weak and confused. - Continue physical therapy, occupational therapy. Hypernatremia Na 153. Improving. - d/c Lasix. - D5W. - follow BMP. Hypokalemia S/t decreased PO intake. - replete and monitor. - telemetry. DVT prophylaxis: Lovenox Problem Qualifiers (1) Crohns disease: Qualified Codes: K50.818 - Crohn's disease of both small and large intestine with other complication Francis Levi DO December 02, 2017 11:23
[2017-12-02] MEDS: PIPERACIL-TAZO 4.5 GM PREMIX 100 ML IV SCH ×2 (11:49→17:12)
[2017-12-02] MEDS: PANTOPRAZOLE INJ 80 MG in SODIUM CHLORIDE 0.9% INJ 100 ML IV SCH ×2 (11:49→21:18)
[2017-12-02] MEDS ORDERED: POTASSIUM PHOSPHATE INJ 15 MMOL in SODIUM CHLORIDE 0.9% INJ 150 ML IV ONE (12:00)
--- NOTE | 2017-12-02 12:27 | PD.CONS ---
HPI History of Present Illness This is a 52 year old male with a medical history significant for Crohn's disease who underwent E lap with terminal ileum/ascending colon resection by Dr. Lane on 10/19/17. Patient was subsequently discharged on 10/31. He presented back to the ER on 11/04 with abdominal pain underwent labs and CAT scan and was subsequently discharged from the ER and followed up with Dr. Lane. He did develop some wound dehiscence and the upper part of his incision site and some ha removed. has a history of cirrhosis and has had a TIPS procedure in June 2017. He has been on diuretics at home. Pt lethargic but arousable, not able to provide much information. HPI was obtained by reviewing records and discussion with nurse. According to nurse, he had dark stools last night, no BM today, had some dark gastric out put through NGT. hgb today 10.4 s/p blood transfusion, was 7.7 yesterday. PFSH Past Medical History Crohn Cirrhosis Past Surgical History E lap with terminal ileum/ascending colon resection by Dr. Lane on 10/19/17 Coded Allergies: tetanus toxoid, adsorbed (Verified Allergy, Severe, Nausea/Vomiting, ) Medications Current Medications Medications (Trade) Dose Ordered Sig/Vikki Route Start Time Stop Time Status Last Admin (NS Flush) 2 ml UNSCH PRN IV FLUSH 11/09/17 14:45 (NS Flush) 2 ml BID IV FLUSH 11/09/17 21:00 12/01/17 20:10 [place] [place] [facility] [place] 1 Q361D XX 11/09/17 14:45 11/10/17 20:47 (Chlorhexidine 2% Cloth) 3 pack Taper DAILY@04 TOP 11/10/17 04:00 11/06/18 03:59 11/12/17 04:00 (Chlorhexidine 2% Cloth) 3 pack UNSCH PRN TOP 11/09/17 14:45 ([facility] Inj) 1 mg UNSCH PRN SQ 11/09/17 20:45 (Ceres 7.5-325 Mg) 1 tab Q4H PRN PO 11/09/17 23:45 11/24/17 13:58 (Mycostatin Liq) 5 ml QID SWISH-SWAL 11/10/17 13:00 12/01/17 18:00 (Albuterol Neb) 2.5 mg Q2HR NEB PRN NEB 11/10/17 21:30 11/23/17 02:56 (K-Lyte Cl Eff) 50 meq BID PO 11/23/17 21:00 Future Hold 11/29/17 09:19 (Lasix) 40 mg BID@09,18 PO 11/23/17 18:00 Future Hold 11/24/17 08:08 (Ceres 7.5-325 Mg) 2 tab Q6H PRN PO 11/24/17 17:15 11/30/17 00:18 (Xanax) 0.5 mg DAILY PRN PO 11/29/17 12:45 12/02/17 04:18 (Lactulose Liq) 30 ml QID NG 12/01/17 18:00 12/02/17 10:26 Sodium Bicarbonate 150 meq/Dextrose 1,150 ml @ 125 mls/hr Q9H12M IV 12/01/17 21:00 12/01/17 20:12 Sodium Chloride 250 ml @ 15 mls/hr ONCE ONCE IV 12/02/17 00:15 12/02/17 16:54 12/02/17 02:46 Vancomycin HCl 750 mg/Sodium Chloride 257.5 ml @ 257.5 mls/ hr Q12H IV 12/02/17 10:00 Pharmacy Profile Note 0 ml @ 0 mls/hr UNSCH OTHER 12/02/17 09:15 Pantoprazole Sodium 80 mg/ Sodium Chloride 100 ml @ 10 mls/hr Q10H IV 12/02/17 10:00 12/02/17 11:49 [place] [place] Info) SPECIFIC LAB TO BE DRAWN:VA... ONCE ONCE .XX 12/04/17 09:45 12/04/17 09:46 Piperacillin Sod/ Tazobactam Sod 100 ml @ 200 mls/hr Q6H IV 12/02/17 11:00 12/02/17 11:49 Potassium Phosphate 15 mmol/ Sodium Chloride 155 ml @ 38.75 mls/ hr ONCE ONCE IV 12/02/17 12:00 12/02/17 15:59 Family History Not able to obtain Social History Not able to obtain Review of Systems Pt is lethargic , not able to obtain GI Exam Vitals I&O Vital Signs Date Time Temp Pulse Resp B/P (MAP) Pulse Ox O2 Delivery O2 Flow Rate FiO2 12/02/17 08:00 99.1 116 16 95/53 (67) 98 12/02/17 04:25 100 Nasal Cannula 2.00 12/02/17 04:18 129 12/02/17 04:00 97.9 109 22 111/62 (78) 100 12/02/17 03:00 97.4 108 20 97/57 100 12/02/17 00:08 97.4 101 20 126/57 (80) 100 12/01/17 23:46 103 12/01/17 20:20 97.4 107 20 135/72 (93) 96 12/01/17 20:00 98.1 95 20 121/65 (83) 99 12/01/17 19:51 92 12/01/17 16:00 97.8 64 20 128/59 (82) 100 12/01/17 15:43 54 12/01/17 12:00 97.7 54 20 142/65 (90) 100 I/O 12/01/17 12/01/17 12/01/17 12/02/17 12/02/17 12/02/17 07:00 15:00 23:00 07:00 15:00 23:00 Intake Total 650 ml 600 ml 1600 ml 656 ml Output Total 400 ml 550 ml Balance 650 ml 600 ml 1200 ml 106 ml Intake Oral 0 ml IV Total 650 ml 600 ml 1600 ml 256 ml Packed Cells 400 ml Output Urine Total 400 ml Gastric Drainage Total 150 ml 150 ml Emesis 250 ml # Voids 3 6 3 # Bowel Movements 4 2 Imaging Last Impressions Abdomen/Pelvis CT 12/01/17 0000 Signed Impressions: CONCLUSION: 1. The patient has had [address] scans since August 2017. All the scans have demonstrated varying degrees of small bowel wall thickening and gase ous distention of small and large bowel. On today's examination, the loops of s mall and large bowel are predominantly gas-distended. 2. NG tube in place. 3. Tips catheter, gallstone, and nonobstructing right renal stone, stable in a ppearance. Liver Ultrasound 11/28/17 0000 Signed Impressions: CONCLUSION: 1. Gallstone in the gallbladder. No biliary tract obstruction. 2. Diffuse fatty infiltration of the liver. No significant change compared to the prior study. 3. Nonobstructing 1 cm stone in the lower pole of the right kidney. Head CT 11/27/17 0000 Signed Impressions: Service Date/Time: Monday, November 27, 2017 12:57 - CONCLUSION: 1. Stable exam 2. No evidence of acute infarct, hemorrhage, mass or edema. Star Patterson MD Chest X-Ray 11/24/17 0600 Signed Impressions: Service Date/Time: Friday, November 24, 2017 03:30 - CONCLUSION: Considerable improvement but residual bilateral infiltrates. Lalo Zavala Jr., MD Chest CT 11/20/17 0000 Signed Impressions: Service Date/Time: Monday, November 20, 2017 10:54 - CONCLUSION: Increasing coarse interstitial changes in both lungs with small bilateral pleural effusions. Interstitial pattern in the base is moving towards it honeycomb pattern. Hernando Rodrigez MD FACR Abdomen Ultrasound 11/11/17 0000 Signed Impressions: Service Date/Time: Saturday, November 11, 2017 14:19 - CONCLUSION: Trace ascites in the abdomen. Keegan Almaraz MD Laboratory Test 12/01/17 15:40 12/01/17 19:32 12/01/17 21:13 12/01/17 23:25 White Blood Count 33.3 TH/MM3 Red Blood Count 3.89 MIL/MM3 Hemoglobin 11.1 GM/DL 7.7 GM/DL Hematocrit 34.0 % 23.9 % Mean Corpuscular Volume 87.4 FL Mean Corpuscular Hemoglobin 28.5 PG Mean Corpuscular Hemoglobin Concent 32.6 % Red Cell Distribution Width 20.0 % Platelet Count 143 TH/MM3 Mean Platelet Volume 8.9 FL Hematology Comments Blood Urea Nitrogen 16 MG/DL Creatinine 0.83 MG/DL Random Glucose 135 MG/DL Total Protein 4.8 GM/DL Albumin 2.1 GM/DL Calcium Level 8.6 MG/DL Magnesium Level 2.0 MG/DL Alkaline Phosphatase 455 U/L Aspartate Amino Transf (AST/SGOT) 136 U/L Alanine Aminotransferase (ALT/SGPT) 254 U/L Total Bilirubin 2.2 MG/DL Direct Bilirubin 0.8 MG/DL Sodium Level 139 MEQ/L Potassium Level 4.6 MEQ/L Chloride Level 114 MEQ/L Carbon Dioxide Level 11.8 MEQ/L Anion Gap 13 MEQ/L Estimat Glomerular Filtration Rate 97 ML/MIN Indirect Bilirubin 1.4 MG/DL Blood Gas Puncture Site RT RADIAL Blood Gas Patient Temperature 98.6 Blood Gas HCO3 15 mmol/L Blood Gas Base Excess -7.6 mmol/L Blood Gas Oxygen Saturation 96 % Arterial Blood pH 7.53 Arterial Blood Partial Pressure CO2 18 mmHg Arterial Blood Partial Pressure O2 104 mmHg Arterial Blood Oxygen Content 11.7 Vol % Arterial Blood Carboxyhemoglobin 1.8 % Arterial Blood Methemoglobin 1.1 % Blood Gas Hemoglobin 8.6 G/DL Blood Gas Inspired Oxygen 21 % Lactic Acid Level 3.3 mmol/L Prothrombin Time 15.7 SEC Prothromb Time International Ratio 1.6 RATIO Test 12/02/17 07:06 12/02/17 09:21 White Blood Count 47.9 TH/MM3 Red Blood Count 3.66 MIL/MM3 Hemoglobin 10.4 GM/DL Hematocrit 31.6 % Mean Corpuscular Volume 86.3 FL Mean Corpuscular Hemoglobin 28.4 PG Mean Corpuscular Hemoglobin Concent 32.9 % Red Cell Distribution Width 17.6 % Platelet Count 136 TH/MM3 Mean Platelet Volume 8.5 FL Blood Urea Nitrogen 25 MG/DL Creatinine 1.13 MG/DL Random Glucose 95 MG/DL Total Protein 4.5 GM/DL Albumin 2.0 GM/DL Calcium Level 8.7 MG/DL Magnesium Level 1.8 MG/DL Alkaline Phosphatase 450 U/L Aspartate Amino Transf (AST/SGOT) 89 U/L Alanine Aminotransferase (ALT/SGPT) 220 U/L Total Bilirubin 3.2 MG/DL Direct Bilirubin 1.6 MG/DL Sodium Level 146 MEQ/L Potassium Level 2.8 MEQ/L Chloride Level 114 MEQ/L Carbon Dioxide Level 19.1 MEQ/L Anion Gap 13 MEQ/L Estimat Glomerular Filtration Rate 68 ML/MIN Phosphorus Level 2.1 MG/DL Indirect Bilirubin 1.6 MG/DL Troponin I 0.07 NG/ML Lactic Acid Level 4.1 mmol/L Date/Time Source Procedure Growth Status 12/02/17 09:39 Blood Peripheral Aerobic Blood Culture Pending Received 12/02/17 09:39 Blood Peripheral Anaerobic Blood Culture Pending Received 11/10/17 02:30 Wound Abdomen Gram Stain - Final Complete 11/10/17 02:30 Wound Culture - Final Jeane Glabrata Complete Physical Examination HEENT: normocephalic; atraumatic; no jaundice. CHEST: Chest is clear to auscultation and percussion. CARDIAC: Regular rate and rhythm with no murmur gallop or rubs. ABDOMEN: Soft, nondistended, nontender; hepatosplenomegaly; bowel sounds are present in all four quadrants. large dssng. mid abd EXTREMITIES: No clubbing, cyanosis, or edema. SKIN: Normal; no rash; no jaundice. CENTRAL SUPPLY AIDE: Lethargic, arousable Assessment and Plan Plan - Anemia/? GI bleed- This is likely multifactorial, could be chronic dz, hx of cirrhosis, Crohn, some dark stools and dark gastric output reported, no active bleeding Currently pt not stable for any GI procedures, will monitor - Hx of cirrhosis- had a TIPS procedure in June 2017.On diuretics, CT of A/ P showed small bowel wall thickening and gaseous distention of small and large bowels, Tips catheter, gallstone and nonobstructing right renal stone US showed gallstones, fatty liver and kidney stone - Elevated tumor marker- AFP 523, no evidence of HCC on imaging, could be secondary to cirrhosis - high ammonia/ hepatic encephalopathy- on Lactulose - Crohn's disease who underwent E lap with terminal ileum/ascending colon resection by Dr. Lane on 10/19/17. Patient was subsequently discharged on . He presented back to the ER on 11/04 with abdominal pain underwent labs and CAT scan and was subsequently discharged from the ER and followed up with Dr. Lane. He did develop some wound dehiscence and the upper part of his incision site and some ha removed. Plan: - Diet per attending - Will add Xifaxan - Add Octreotide - Doppler US to evaluate Tips - EGD if medically stable or actively bleeding - Monitor hh - Transfuse as needed - Monitor labs - Pt seen and examined by Dr. Layne and myself and this note is written on his behalf Shama White December 02, 2017 12:26
--- NOTE | 2017-12-02 12:39 | HHI.PR ---
Subjective Remarks 52 YOWM with Crohn's dis, Cirrohosis, s/p TIPS, abd surgery,ARDS Breathing better Weaned to RA had hematemesis Received 1 unit PRBC Ammonia leve increased Objective Vital Signs Vital Signs Date Time Temp Pulse Resp B/P (MAP) Pulse Ox O2 Delivery O2 Flow Rate FiO2 12/02/17 08:00 99.1 116 16 95/53 (67) 98 12/02/17 04:25 100 Nasal Cannula 2.00 12/02/17 04:18 129 12/02/17 04:00 97.9 109 22 111/62 (78) 100 12/02/17 03:00 97.4 108 20 97/57 100 12/02/17 00:08 97.4 101 20 126/57 (80) 100 12/01/17 23:46 103 12/01/17 20:20 97.4 107 20 135/72 (93) 96 12/01/17 20:00 98.1 95 20 121/65 (83) 99 12/01/17 19:51 92 12/01/17 16:00 97.8 64 20 128/59 (82) 100 12/01/17 15:43 54 I/O 12/01/17 12/01/17 12/01/17 12/02/17 12/02/17 12/02/17 07:00 15:00 23:00 07:00 15:00 23:00 Intake Total 650 ml 600 ml 1600 ml 656 ml Output Total 400 ml 550 ml Balance 650 ml 600 ml 1200 ml 106 ml Intake Oral 0 ml IV Total 650 ml 600 ml 1600 ml 256 ml Packed Cells 400 ml Output Urine Total 400 ml Gastric Drainage Total 150 ml 150 ml Emesis 250 ml # Voids 3 6 3 # Bowel Movements 4 2 Result Diagram: 12/02/1770512/02/17 0706 Objective Remarks GENERAL: MBMNWM, mild sob SKIN: Warm and dry. HEAD: Normocephalic. EYES: No scleral icterus. No injection or drainage. NECK: Supple, trachea midline. No JVD or lymphadenopathy. CARDIOVASCULAR: Regular rate and rhythm without murmurs, gallops, or rubs. RESPIRATORY: Breath sounds equal bilaterally. No accessory muscle use. GASTROINTESTINAL: Abdomen soft, non-tender, nondistended. Abd wound dressed MUSCULOSKELETAL: No cyanosis, or edema. BACK: Nontender without obvious deformity. No CVA tenderness. A/P Assessment and Plan IMPRESSION: 1. Bilateral lung infiltrate with interstitial pattern and appearing fibrotic changes, possibly has acute respiratory distress syndrome and also possible underlying interstitial lung disease. 2. History of nicotine use. 3. Cirrhosis of the liver, status post transjugular intrahepatic portosystemic shunt procedure. 4. Crohn's disease. PLAN Stable on RA Keep sat 90-94% Cont Abx Monitor ammonia level Monitor H/H Zach Mas MD December 02, 2017 12:39
--- NOTE | 2017-12-02 14:15 | EKG ---
Date Performed: 12/02/2017 Time Performed: 09:56:04 PTAGE: 52 years EKG: Sinus rhythm POSSIBLE LEFT ATRIAL ENLARGEMENT NONSPECIFIC ST & T-WAVE ABNORMALITY BORDERLINE ECG Compared to PREVIOUS TRACING , atrial abnormality is somewhat more prominent, ST-T changes are slight ly more prominent anterolaterally. PREVIOUS TRACIN11/09/2017 14.23 DOCTOR: Kris Moore Interpretating Date/Time 12/02/2017 14:15:04
[2017-12-02] MEDS: SODIUM BICARBONATE 8.4% INJ 150 MEQ in DEXTROSE 5% IN WATE 1000ML INJ 1,000 ML IV SCH ×4 (14:22→21:03)
[2017-12-02] MEDS: OCTREOTIDE INJ 100 MCG/ML VIAL IV PUSH SCH ×2 (14:30→21:32)
[2017-12-02] MEDS: VANCOMYCIN INJ 750 MG in SODIUM CHLOR 0.9% 250 ML INJ 250 ML IV SCH ×2 (14:30→22:46)
--- NOTE | 2017-12-02 15:01 | HHI.IDPN ---
Subjective Subjective Remarks Infectious disease reconsult for evaluation of leukocytosis Chart has been reviewed. Patient is a 53-year-old male, with history of Crohn's disease, had undergone terminal ileum and ascending colon resection October 19, 2017. He was admitted on November 09 because he was not feeling well, with generalized weakness, and abdominal pain. In the ED he was hypotensive and was noted to have wound dehiscence. He was in the ICU, and he was on pressors initially. He received a course of antibiotic including Zosyn, vancomycin, doxycycline, Flagyl, and Diflucan. He was transferred to the main ICU on November 10. During his hospitalization in the ICU, patient developed bilateral pulmonary infiltrates, which was felt to be due to ARDS. His hemodynamics improved as well as his pulmonary status. He was transferred to the hospitalist service from the social work administrator service. Patient's white count has always been in the 20,000. He was on Solu-Cortef from November 19, and then Solu-Medrol from November 20 - December 01. His white count jumped up to greater than 40,000 today, infectious disease consultation has been requested to evaluate the patient. Discussed the case with RN. Patient has been afebrile. He was apparently lethargic, and mental status is a little bit better this morning. He had hematemesis yesterday, and GI is evaluating the patient. His hemoglobin had dropped to 7, and he received 1 unit of packed RBC this morning. Patient's blood pressure has been borderline since yesterday. He currently has an NG tube in place He has had 2 bowel movement recorded He has no central line No Guerin catheter He is on nasal O2 His last chest x-ray is November 24 CT of the abdomen and pelvis yesterday did not show any intra-abdominal abscess Social history Smokes half a pack day of cigarettes No alcohol abuse No illicit drug use Antibiotics Vancomycin Zosyn Current Medications Medications (Trade) Dose Ordered Sig/Vikki Route Start Time Stop Time Status Last Admin (NS Flush) 2 ml UNSCH PRN IV FLUSH 11/09/17 14:45 (NS Flush) 2 ml BID IV FLUSH 11/09/17 21:00 12/01/17 20:10 ([facility] Nursing Information) 1 Q361D XX 11/09/17 14:45 11/10/17 20:47 (Chlorhexidine 2% Cloth) 3 pack Taper DAILY@04 TOP 11/10/17 04:00 11/06/18 03:59 11/12/17 04:00 (Chlorhexidine 2% Cloth) 3 pack UNSCH PRN TOP 11/09/17 14:45 (Brethine Inj) 1 mg UNSCH PRN SQ 11/09/17 20:45 ([place] 7.5-325 Mg) 1 tab Q4H PRN PO 11/09/17 23:45 11/24/17 13:58 (Mycostatin Liq) 5 ml QID SWISH-SWAL 11/10/17 13:00 12/01/17 18:00 (Albuterol Neb) 2.5 mg Q2HR NEB PRN NEB 11/10/17 21:30 11/23/17 02:56 (K-Lyte Cl Eff) 50 meq BID PO 11/23/17 21:00 Future Hold 11/29/17 09:19 (Lasix) 40 mg BID@,18 PO 11/23/17 18:00 Future Hold 11/24/17 08:08 ([place] 7.5-325 Mg) 2 tab Q6H PRN PO 11/24/17 17:15 11/30/17 00:18 (Xanax) 0.5 mg DAILY PRN PO 11/29/17 12:45 12/02/17 04:18 (Lactulose Liq) 30 ml QID NG 12/01/17 18:00 12/02/17 10:26 Sodium Bicarbonate 150 meq/Dextrose 1,150 ml @ 125 mls/hr Q9H12M IV 12/01/17 21:00 12/01/17 20:12 Sodium Chloride 250 ml @ 15 mls/hr ONCE ONCE IV 12/02/17 00:15 12/02/17 16:54 12/02/17 02:46 Vancomycin HCl 750 mg/Sodium Chloride 257.5 ml @ 257.5 mls/ hr Q12H IV 12/02/17 10:00 Pharmacy Profile Note 0 ml @ 0 mls/hr UNSCH OTHER 12/02/17 09:15 Pantoprazole Sodium 80 mg/ Sodium Chloride 100 ml @ 10 mls/hr Q10H IV 12/02/17 10:00 12/02/17 11:49 ([facility] Pharm[facility] Ordered Lab Info) SPECIFIC LAB TO BE DRAWN:VA... ONCE ONCE .XX 12/04/17 09:45 12/04/17 09:46 Piperacillin Sod/ Tazobactam Sod 100 ml @ 200 mls/hr Q6H IV 12/02/17 11:00 12/02/17 11:49 Potassium Phosphate 15 mmol/ Sodium Chloride 155 ml @ 38.75 mls/ hr ONCE ONCE IV 12/02/17 12:00 12/02/17 15:59 (Xifaxan) 400 mg Q8HR PO 12/02/17 14:00 (SandoSTATIN INJ) 100 mcg Q8HR IV PUSH 12/02/17 14:00 12/05/17 13:59 Lines PIV with no evidence of infection Past Medical History Crohn Cirrhosis Gastritis Past Surgical History E lap with terminal ileum/ascending colon resection by Dr. Lane on 10/19/17 Allergies: Coded Allergies: tetanus toxoid, adsorbed (Verified Allergy, Severe, Nausea/Vomiting, ) Objective . Vital Signs Date Time Temp Pulse Resp B/P (MAP) Pulse Ox O2 Delivery O2 Flow Rate FiO2 12/02/17 12:00 97.1 99 20 100/58 (72) 99 12/02/17 08:00 99.1 116 16 95/53 (67) 98 12/02/17 04:25 100 Nasal Cannula 2.00 12/02/17 04:18 129 12/02/17 04:00 97.9 109 22 111/62 (78) 100 12/02/17 03:00 97.4 108 20 97/57 100 12/02/17 00:08 97.4 101 20 126/57 (80) 100 12/01/17 23:46 103 12/01/17 20:20 97.4 107 20 135/72 (93) 96 12/01/17 20:00 98.1 95 20 121/65 (83) 99 12/01/17 19:51 92 12/01/17 16:00 97.8 64 20 128/59 (82) 100 12/01/17 15:43 54 . Laboratory Tests Test 12/01/17 15:40 12/01/17 23:25 12/02/17 07:06 White Blood Count 33.3 TH/MM3 47.9 TH/MM3 Red Blood Count 3.89 MIL/MM3 3.66 MIL/MM3 Hemoglobin 11.1 GM/DL 7.7 GM/DL 10.4 GM/DL Hematocrit 34.0 % 23.9 % 31.6 % Mean Corpuscular Volume 87.4 FL 86.3 FL Mean Corpuscular Hemoglobin 28.5 PG 28.4 PG Mean Corpuscular Hemoglobin Concent 32.6 % 32.9 % Red Cell Distribution Width 20.0 % 17.6 % Platelet Count 143 TH/MM3 136 TH/MM3 Mean Platelet Volume 8.9 FL 8.5 FL Hematology Comments Laboratory Tests Test 12/01/17 15:40 12/01/17 21:13 12/02/17 07:06 12/02/17 09:21 Blood Urea Nitrogen 16 MG/DL 25 MG/DL Creatinine 0.83 MG/DL 1.13 MG/DL Random Glucose 135 MG/DL 95 MG/DL Total Protein 4.8 GM/DL 4.5 GM/DL Albumin 2.1 GM/DL 2.0 GM/DL Calcium Level 8.6 MG/DL 8.7 MG/DL Magnesium Level 2.0 MG/DL 1.8 MG/DL Alkaline Phosphatase 455 U/L 450 U/L Aspartate Amino Transf (AST/SGOT) 136 U/L 89 U/L Alanine Aminotransferase (ALT/SGPT) 254 U/L 220 U/L Total Bilirubin 2.2 MG/DL 3.2 MG/DL Direct Bilirubin 0.8 MG/DL 1.6 MG/DL Sodium Level 139 MEQ/L 146 MEQ/L Potassium Level 4.6 MEQ/L 2.8 MEQ/L Chloride Level 114 MEQ/L 114 MEQ/L Carbon Dioxide Level 11.8 MEQ/L 19.1 MEQ/L Anion Gap 13 MEQ/L 13 MEQ/L Estimat Glomerular Filtration Rate 97 ML/MIN 68 ML/MIN Indirect Bilirubin 1.4 MG/DL 1.6 MG/DL Lactic Acid Level 3.3 mmol/L 4.1 mmol/L Phosphorus Level 2.1 MG/DL Troponin I 0.07 NG/ML Microbiology Date/Time Source Procedure Growth Status 12/02/17 09:39 Blood Peripheral Aerobic Blood Culture Pending Received 12/02/17 09:39 Blood Peripheral Anaerobic Blood Culture Pending Received 12/02/17 09:34 Blood Peripheral Aerobic Blood Culture Pending Received 12/02/17 09:34 Blood Peripheral Anaerobic Blood Culture Pending Received Imaging RADIOLOGY STUDIES/FILMS REVIEWED Last Impressions Abdomen/Pelvis CT 12/01/17 0000 Signed Impressions: CONCLUSION: 1. The patient has had [address] scans since August 2017. All the scans have demonstrated varying degrees of small bowel wall thickening and gase ous distention of small and large bowel. On today's examination, the loops of s mall and large bowel are predominantly gas-distended. 2. NG tube in place. 3. Tips catheter, gallstone, and nonobstructing right renal stone, stable in a ppearance. Liver Ultrasound 11/28/17 0000 Signed Impressions: CONCLUSION: 1. Gallstone in the gallbladder. No biliary tract obstruction. 2. Diffuse fatty infiltration of the liver. No significant change compared to the prior study. 3. Nonobstructing 1 cm stone in the lower pole of the right kidney. Head CT 11/27/17 0000 Signed Impressions: Service Date/Time: Monday, November 27, 2017 12:57 - CONCLUSION: 1. Stable exam 2. No evidence of acute infarct, hemorrhage, mass or edema. Star Patterson MD Chest X-Ray 11/24/17 0600 Signed Impressions: Service Date/Time: Friday, November 24, 2017 03:30 - CONCLUSION: Considerable improvement but residual bilateral infiltrates. Lalo Zavala Jr., MD Chest CT 11/20/17 0000 Signed Impressions: Service Date/Time: Monday, November 20, 2017 10:54 - CONCLUSION: Increasing coarse interstitial changes in both lungs with small bilateral pleural effusions. Interstitial pattern in the base is moving towards it honeycomb pattern. Hernando Rodrigez MD FACR Abdomen Ultrasound 11/11/17 0000 Signed Impressions: Service Date/Time: Saturday, November 11, 2017 14:19 - CONCLUSION: Trace ascites in the abdomen. Keegan Almaraz MD Physical Exam GENERAL: Patient is a cachectic, well-developed male, lethargic, but follows commands, looks chronically ill-appearing, frail, not in respiratory distress. SKIN: Warm and dry. Has scattered ecchymosis in both upper extremities. No rash noted. HEAD: Atraumatic. Normocephalic. No temporal wasting, or tenderness. EYES: [place] conjunctiva. No petechia or hemorrhage. Pupils equal, round and reactive to light. Extraocular movements full and intact. No scleral icterus. No injection or drainage. EARS, NOSE AND THROAT: Nose without bleeding or purulent nasal discharge. Has an NG tube in place. Has dry oral mucosa. NECK: Trachea midline. Supple and not tender, no meningeal signs CARDIOVASCULAR: Regular rate and rhythm. No murmurs, rubs or gallops heard RESPIRATORY: Clear to auscultation. Breath sounds equal bilaterally. No rales , wheezing or rhonchi. Decreased breath sounds at the bases. ABDOMEN: Soft, non-tender, nondistended. Bowel sounds present and normoactive. No guarding. No rebound. No organomegaly. Has open wound in midline incision with yellow slough at undermining. Has smaller wound lower poryion of midline incision with small amount of yellow slough. Has small amount serous draianage from both wounds, no periwound erythema. EXTREMITIES: No clubbing, cyanosis, or edema. No joint effusion, has good ROM. No calf tenderness. Well perfused and warm. NEUROLOGICAL: Lethargic, follows commands. PSYCHIATRIC: Unable to assess. LINE: No evidence of infection Assessment & Plan Remarks IMPRESSION Worsening leukocytosis, etiology? - ?new sepsis, has not been febrile, had vomited, ?aspiration - no line - no guerin - CT A/P no abscess - wound looks clean - ?reactive, ?GIB - has had borderline low BP, ?new sepsis, ?relative adrenal insufficiency S/P Abx for sepsis S/P ARDS, last CXR better, and oxygenating better Cirrhosis Cachexia RECOMMENDATION 2 BC UA and C/S CXR Follow CBC GI eval GIB Continue empiric Abx: Vanco and Zosyn Follow C/S Monitor progress I will follow along with you Jaky Savage MD December 02, 2017 15:01
[2017-12-02] MEDS: predniSONE 20 MG TAB NG SCH ×2 (17:12→21:00)
[2017-12-02] MEDS: RIFAXIMIN 200 MG TAB PO SCH ×2 (17:12→21:18)
[2017-12-02 17:57] LABS: TROPONIN I 0.05 NG/ML (0.02-0.05)
[2017-12-02 17:59] LABS: BICARBONATE 21.7 MEQ/L (21.0-32.0); CALCIUM 8.1 MG/DL (8.5-10.1); CREATININE 1.11 MG/DL (0.60-1.30)
[2017-12-03] VITALS (7 sets, daily range): BP systolic 103–115; BP diastolic 53–59; PULSE 59–100; RESP 16–18; TEMP 97.1–97.8; O2SAT 92–100
[2017-12-03] MEDS: PIPERACIL-TAZO 4.5 GM PREMIX 100 ML IV SCH ×5 (00:13→23:22)
[2017-12-03] MEDS: ALPRAZolam 0.5 MG TAB PO PRN (01:22)
[2017-12-03] MEDS: PANTOPRAZOLE INJ 80 MG in SODIUM CHLORIDE 0.9% INJ 100 ML IV SCH (04:08)
[2017-12-03] MEDS: SODIUM BICARBONATE 8.4% INJ 150 MEQ in DEXTROSE 5% IN WATE 1000ML INJ 1,000 ML IV SCH ×2 (04:09)
[2017-12-03] MEDS: RIFAXIMIN 200 MG TAB PO SCH ×3 (04:09→21:02)
[2017-12-03] MEDS: OCTREOTIDE INJ 100 MCG/ML VIAL IV PUSH SCH ×3 (04:09→21:02)
[2017-12-03 06:26] LABS: HEMATOCRIT 24.1 % (39.0-51.0); MEAN CELL VOLUME 87.5 FL (80.0-100.0); MEAN CORPUSCULAR HEMOGLOBIN 29.1 PG (27.0-34.0); MEAN CORPUSCULAR HGB CONC 33.3 % (32.0-36.0); MEAN PLATELET VOLUME 8.9 FL (7.0-11.0); PLATELET COUNT 105 TH/MM3 (150-450); RED BLOOD COUNT 2.75 MIL/MM3 (4.50-5.90); RED CELL DISTRIBUTION WIDTH 19.2 % (11.6-17.2); WHITE BLOOD COUNT 28.8 TH/MM3 (4.0-11.0)
[2017-12-03 06:36] LABS: INTERNATIONAL NORMALIZED RATIO 1.7 RATIO; PROTHROMBIN TIME - PATIENT 17.3 SEC (9.8-11.6)
[2017-12-03 06:51] LABS: ALBUMIN 1.6 GM/DL (3.4-5.0); BICARBONATE 25.1 MEQ/L (21.0-32.0); CALCIUM 7.6 MG/DL (8.5-10.1); CREATININE 1.21 MG/DL (0.60-1.30); DIRECT BILIRUBIN ADULT 1.5 MG/DL (0.0-0.2); MAGNESIUM 1.9 MG/DL (1.5-2.5)
[2017-12-03 07:11] LABS: INDIRECT BILIRUBIN 1.3 MG/DL (0.0-0.8); PHOSPHORUS 3.9 MG/DL (2.5-4.9); TOTAL BILIRUBIN ADULT 2.8 MG/DL (0.2-1.0); TOTAL PROTEIN 3.9 GM/DL (6.4-8.2)
[2017-12-03] MEDS: SODIUM CHLORIDE 0.9% FLUSH 10 ML FLUSH IV FLUSH SCH ×2 (08:18→21:00)
[2017-12-03] MEDS: predniSONE 20 MG TAB NG SCH ×2 (08:18→21:02)
[2017-12-03] MEDS: NYSTATIN SUSP 500,000 U/5 ML CUP SWISH-SWAL SCH ×4 (08:19→21:01)
[2017-12-03] MEDS: LACTULOSE SYRUP 20 GM/30 ML CUP NG SCH ×4 (08:19→21:02)
--- NOTE | 2017-12-03 10:28 | HHI.IDPN ---
Subjective Subjective Remarks Patient is a 53-year-old male, with history of Crohn's disease, had undergone terminal ileum and ascending colon resection October 19, 2017. He was admitted on November 09 because he was not feeling well, with generalized weakness, and abdominal pain. In the ED he was hypotensive and was noted to have wound dehiscence. He was in the ICU, and he was on pressors initially. He received a course of antibiotic including Zosyn, vancomycin, doxycycline, Flagyl, and Diflucan. He was transferred to the main ICU on November 10. During his hospitalization in the ICU, patient developed bilateral pulmonary infiltrates, which was felt to be due to ARDS. His hemodynamics improved as well as his pulmonary status. He was transferred to the hospitalist service from the senior landscape architect service. Patient's white count has always been in the 20,000. He was on Solu-Cortef from November 19, and then Solu-Medrol from November 20 - December 01. His white count jumped up to greater than 40,000 today, infectious disease consultation has been requested to evaluate the patient. Notes reviewed Temps ok Very awake and interactive this morning, but confused Has NGT in place, with bloody fluid On RA Not SOB BP ok He has no central line No Guerin catheter His last chest x-ray is November 24 CT of the abdomen and pelvis 12/01 Antibiotics Vancomycin Zosyn Current Medications Medications (Trade) Dose Ordered Sig/Vikki Route Start Time Stop Time Status Last Admin (NS Flush) 2 ml UNSCH PRN IV FLUSH 11/09/17 14:45 (NS Flush) 2 ml BID IV FLUSH 11/09/17 21:00 12/02/17 21:18 ([facility] [place] Nursing Information) 1 Q361D XX 11/09/17 14:45 11/10/17 20:47 (Chlorhexidine 2% Cloth) 3 pack Taper DAILY@04 TOP 11/10/17 04:00 11/06/18 03:59 11/12/17 04:00 (Chlorhexidine 2% Cloth) 3 pack UNSCH PRN TOP 11/09/17 14:45 (Brethine Inj) 1 mg UNSCH PRN SQ 11/09/17 20:45 ([place] 7.5-325 Mg) 1 tab Q4H PRN PO 11/09/17 23:45 11/24/17 13:58 (Mycostatin Liq) 5 ml QID SWISH-SWAL 11/10/17 13:00 12/03/17 08:19 (Albuterol Neb) 2.5 mg Q2HR NEB PRN NEB 11/10/17 21:30 11/23/17 02:56 (K-Lyte Cl Eff) 50 meq BID PO 11/23/17 21:00 Future Hold 11/29/17 09:19 (Lasix) 40 mg BID@,18 PO 11/23/17 18:00 Future Hold 11/24/17 08:08 ([place] 7.5-325 Mg) 2 tab Q6H PRN PO 11/24/17 17:15 11/30/17 00:18 (Xanax) 0.5 mg DAILY PRN PO 11/29/17 12:45 12/03/17 01:22 (Lactulose Liq) 30 ml QID NG 12/01/17 18:00 12/03/17 08:19 Vancomycin HCl 750 mg/Sodium Chloride 257.5 ml @ 257.5 mls/ hr Q12H IV 12/02/17 10:00 12/02/17 22:46 Pharmacy Profile Note 0 ml @ 0 mls/hr UNSCH OTHER 12/02/17 09:15 Pantoprazole Sodium 80 mg/ Sodium Chloride 100 ml @ 10 mls/hr Q10H IV 12/02/17 10:00 12/03/17 04:08 ([facility] Ordered Lab Info) SPECIFIC LAB TO BE DRAWN:VA... ONCE ONCE .XX 12/04/17 09:45 12/04/17 09:46 Piperacillin Sod/ Tazobactam Sod 100 ml @ 200 mls/hr Q6H IV 12/02/17 11:00 12/03/17 04:08 (Xifaxan) 400 mg Q8HR PO 12/02/17 14:00 12/03/17 04:09 (SandoSTATIN INJ) 100 mcg Q8HR IV PUSH 12/02/17 14:00 12/05/17 13:59 12/03/17 04:09 (Deltasone) 20 mg BID NG 12/02/17 14:45 12/03/17 08:18 Potassium Chloride 40 meq/ Dextrose 1,020 ml @ 125 mls/hr Q8H10M IV 12/03/17 10:00 Lines PIV with no evidence of infection Past Medical History Crohn Cirrhosis Gastritis Past Surgical History E lap with terminal ileum/ascending colon resection by Dr. Lane on 10/19/17 Allergies: Coded Allergies: tetanus toxoid, adsorbed (Verified Allergy, Severe, Nausea/Vomiting, ) Objective . Vital Signs Date Time Temp Pulse Resp B/P (MAP) Pulse Ox O2 Delivery O2 Flow Rate FiO2 12/03/17 08:00 97.3 70 18 103/53 (70) 99 12/03/17 04:34 97.8 72 16 103/56 (72) 97 12/03/17 00:12 97.1 79 16 105/58 (74) 99 12/03/17 00:00 98 12/02/17 20:00 98.9 80 17 104/54 (71) 99 12/02/17 16:00 97.9 87 17 100/54 (69) 100 12/02/17 12:00 97.1 99 20 100/58 (72) 99 12/02/17 10:30 Room Air . Laboratory Tests Test 12/01/17 15:40 12/01/17 23:25 12/02/17 07:06 12/03/17 06:05 White Blood Count 33.3 TH/MM3 47.9 TH/MM3 28.8 TH/MM3 Red Blood Count 3.89 MIL/MM3 3.66 MIL/MM3 2.75 MIL/MM3 Hemoglobin 11.1 GM/DL 7.7 GM/DL 10.4 GM/DL 8.0 GM/DL Hematocrit 34.0 % 23.9 % 31.6 % 24.1 % Mean Corpuscular Volume 87.4 FL 86.3 FL 87.5 FL Mean Corpuscular Hemoglobin 28.5 PG 28.4 PG 29.1 PG Mean Corpuscular Hemoglobin Concent 32.6 % 32.9 % 33.3 % Red Cell Distribution Width 20.0 % 17.6 % 19.2 % Platelet Count 143 TH/MM3 136 TH/MM3 105 TH/MM3 Mean Platelet Volume 8.9 FL 8.5 FL 8.9 FL Hematology Comments Laboratory Tests Test 12/01/17 15:40 12/01/17 21:13 12/02/17 07:06 12/02/17 09:21 Blood Urea Nitrogen 16 MG/DL 25 MG/DL Creatinine 0.83 MG/DL 1.13 MG/DL Random Glucose 135 MG/DL 95 MG/DL Total Protein 4.8 GM/DL 4.5 GM/DL Albumin 2.1 GM/DL 2.0 GM/DL Calcium Level 8.6 MG/DL 8.7 MG/DL Magnesium Level 2.0 MG/DL 1.8 MG/DL Alkaline Phosphatase 455 U/L 450 U/L Aspartate Amino Transf (AST/SGOT) 136 U/L 89 U/L Alanine Aminotransferase (ALT/SGPT) 254 U/L 220 U/L Total Bilirubin 2.2 MG/DL 3.2 MG/DL Direct Bilirubin 0.8 MG/DL 1.6 MG/DL Sodium Level 139 MEQ/L 146 MEQ/L Potassium Level 4.6 MEQ/L 2.8 MEQ/L Chloride Level 114 MEQ/L 114 MEQ/L Carbon Dioxide Level 11.8 MEQ/L 19.1 MEQ/L Anion Gap 13 MEQ/L 13 MEQ/L Estimat Glomerular Filtration Rate 97 ML/MIN 68 ML/MIN Indirect Bilirubin 1.4 MG/DL 1.6 MG/DL Lactic Acid Level 3.3 mmol/L 4.1 mmol/L Phosphorus Level 2.1 MG/DL Troponin I 0.07 NG/ML Test 12/02/17 16:57 12/02/17 23:02 12/03/17 06:05 Blood Urea Nitrogen 23 MG/DL 24 MG/DL Creatinine 1.11 MG/DL 1.21 MG/DL Random Glucose 127 MG/DL 157 MG/DL Calcium Level 8.1 MG/DL 7.6 MG/DL Sodium Level 146 MEQ/L 150 MEQ/L Potassium Level 3.2 MEQ/L 3.1 MEQ/L Chloride Level 114 MEQ/L 115 MEQ/L Carbon Dioxide Level 21.7 MEQ/L 25.1 MEQ/L Anion Gap 10 MEQ/L 10 MEQ/L Estimat Glomerular Filtration Rate 70 ML/MIN 63 ML/MIN Lactic Acid Level 3.7 mmol/L 2.7 mmol/L Troponin I 0.05 NG/ML 0.04 NG/ML Total Protein 3.9 GM/DL Albumin 1.6 GM/DL Phosphorus Level 3.9 MG/DL Magnesium Level 1.9 MG/DL Alkaline Phosphatase 295 U/L Aspartate Amino Transf (AST/SGOT) 41 U/L Alanine Aminotransferase (ALT/SGPT) 134 U/L Total Bilirubin 2.8 MG/DL Direct Bilirubin 1.5 MG/DL Indirect Bilirubin 1.3 MG/DL Lipase 55 U/L Microbiology Date/Time Source Procedure Growth Status 12/02/17 09:39 Blood Peripheral Aerobic Blood Culture Pending Received 12/02/17 09:39 Blood Peripheral Anaerobic Blood Culture Pending Received 12/02/17 09:34 Blood Peripheral Aerobic Blood Culture Pending Received 12/02/17 09:34 Blood Peripheral Anaerobic Blood Culture Pending Received Imaging RADIOLOGY STUDIES/FILMS REVIEWED Last Impressions Abdomen/Pelvis CT 12/01/17 0000 Signed Impressions: CONCLUSION: 1. The patient has had [address] scans since August 2017. All the scans have demonstrated varying degrees of small bowel wall thickening and gase ous distention of small and large bowel. On today's examination, the loops of s mall and large bowel are predominantly gas-distended. 2. NG tube in place. 3. Tips catheter, gallstone, and nonobstructing right renal stone, stable in a ppearance. Liver Ultrasound 11/28/17 0000 Signed Impressions: CONCLUSION: 1. Gallstone in the gallbladder. No biliary tract obstruction. 2. Diffuse fatty infiltration of the liver. No significant change compared to the prior study. 3. Nonobstructing 1 cm stone in the lower pole of the right kidney. Head CT 11/27/17 0000 Signed Impressions: Service Date/Time: Monday, November 27, 2017 12:57 - CONCLUSION: 1. Stable exam 2. No evidence of acute infarct, hemorrhage, mass or edema. Star Patterson MD Chest X-Ray 11/24/17 0600 Signed Impressions: Service Date/Time: Friday, November 24, 2017 03:30 - CONCLUSION: Considerable improvement but residual bilateral infiltrates. Lalo Zavala Jr., MD Chest CT 11/20/17 0000 Signed Impressions: Service Date/Time: Monday, November 20, 2017 10:54 - CONCLUSION: Increasing coarse interstitial changes in both lungs with small bilateral pleural effusions. Interstitial pattern in the base is moving towards it honeycomb pattern. Hernando Rodrigez MD FACR Abdomen Ultrasound 11/11/17 0000 Signed Impressions: Service Date/Time: Saturday, November 11, 2017 14:19 - CONCLUSION: Trace ascites in the abdomen. Keegan Almaraz MD Physical Exam GENERAL: awake and alert, NAD, confused. SKIN: Warm and dry. Has scattered ecchymosis in both upper extremities. No rash noted. HEAD: Atraumatic. Normocephalic. No temporal wasting, or tenderness. EYES: [place] conjunctiva. No petechia or hemorrhage. Pupils equal, round and reactive to light. Extraocular movements full and intact. No scleral icterus. No injection or drainage. EARS, NOSE AND THROAT: Nose without bleeding or purulent nasal discharge. Has an NG tube in place. Has dry oral mucosa. NECK: Trachea midline. Supple and not tender, no meningeal signs CARDIOVASCULAR: Regular rate and rhythm. No murmurs, rubs or gallops heard RESPIRATORY: Clear to auscultation. Breath sounds equal bilaterally. No rales , wheezing or rhonchi. Decreased breath sounds at the bases. ABDOMEN: Soft, non-tender, nondistended. Bowel sounds present and normoactive. No guarding. No rebound. No organomegaly. Has open wound in midline incision with yellow slough at undermining. Has smaller wound lower portion of midline incision with small amount of yellow slough. Has small amount serous draianage from both wounds, no periwound erythema. EXTREMITIES: No clubbing, cyanosis, or edema. No joint effusion, has good ROM. No calf tenderness. Well perfused and warm. NEUROLOGICAL: Non-focal. PSYCHIATRIC: Calm and cooperative LINE: No evidence of infection Assessment & Plan Remarks IMPRESSION Worsening leukocytosis, etiology? - ?new sepsis, has not been febrile, had vomited, ?aspiration - no line - no guerin - CT A/P no abscess - wound looks clean - ?reactive, ?GIB - has had borderline low BP, ?new sepsis, ?relative adrenal insufficiency S/P Abx for sepsis S/P ARDS, last CXR better, and oxygenating better Cirrhosis Cachexia RECOMMENDATION UA and C/S CXR Follow CBC GI eval GIB Continue empiric Abx: Vanco and Zosyn Follow C/S Monitor progress ADDENDUM: CXR reviewed by me personally It looks better than CXR from 11/24 No new consolidation Jaky Savage MD December 03, 2017 10:28
[2017-12-03] MEDS: VANCOMYCIN INJ 750 MG in SODIUM CHLOR 0.9% 250 ML INJ 250 ML IV SCH ×2 (10:53→21:02)
[2017-12-03] MEDS: POTASSIUM CHLORIDE INJ 40 MEQ in DEXTROSE 5% IN WATE 1000ML INJ 1,000 ML IV SCH ×4 (10:55→18:10)
--- NOTE | 2017-12-03 11:09 | RADRPT ---
EXAM DATE: 12/03/2017 11:05 AM EDT AGE/SEX: 52 years / Male INDICATIONS: Follow up with infiltration. CLINICAL DATA: This is the patient's initial encounter. Patient reports that signs and symptoms have been present for 3 days and indicates a pain score of 0/10. MEDICAL/SURGICAL HISTORY: Cardiovascular disease. None. COMPARISON: [facility] [place], CHEST SINGLE AP, 11/24/2017. . FINDINGS: The previously noted bibasilar infiltrates have essentially resolved. The lungs are well aerated. The re is some hyperaeration bilaterally. There is an NG tube in the stomach. The heart size and hilar st ructures are within normal limits. There is no pneumothorax. Mild chronic interstitial changes are no christiano bilaterally. The bony structures are stable. CONCLUSION: 1. The previously noted mild bibasilar infiltrates have resolved. 2. No new or acute pulmonary infiltrates. Electronically signed by: Gurpreet Maynard MD 12/03/2017 11:08 AM EDT
[2017-12-03 11:53] LABS: AMORPHOUS SEDIMENT, URINE MOD; BACTERIA, URINE RARE /hpf; BILIRUBIN, URINE NEG (NEG); BLOOD, URINE MOD (NEG); GLUCOSE,URINE NEG (NEG); KETONE, URINE NEG (NEG); NITRITE,URINE NEG (NEG); URINE COLOR YELLOW (YELLW/STRAW); URINE LEUKOCYTE ESTERASE NEG (NEG)
[2017-12-03] MEDS: ACETAMINOPHEN/HYDROcodone 325 MG/7.5 MG TAB PO PRN (14:00)
--- NOTE | 2017-12-03 14:16 | HHI.GIFU ---
Subjective Remarks more alert today, talking Mild ABD pain at incision site. New NGT in, pulled out, mild bloody drainage, but improving OT working with pt. Objective Vitals I&O Vital Signs Date Time Temp Pulse Resp B/P (MAP) Pulse Ox O2 Delivery O2 Flow Rate FiO2 12/03/17 12:00 97.8 59 17 108/53 (71) 100 12/03/17 08:00 97.3 70 18 103/53 (70) 99 12/03/17 04:34 97.8 72 16 103/56 (72) 97 12/03/17 00:12 97.1 79 16 105/58 (74) 99 12/03/17 00:00 98 12/02/17 20:00 98.9 80 17 104/54 (71) 99 12/02/17 16:00 97.9 87 17 100/54 (69) 100 I/O 12/02/17 12/02/17 12/02/17 12/03/17 12/03/17 12/03/17 07:00 15:00 23:00 07:00 15:00 23:00 Intake Total 656 ml 200 ml 457.5 ml 907 ml 700 ml Output Total 550 ml 200 ml Balance 106 ml 200 ml 457.5 ml 707 ml 700 ml Intake Oral 0 ml IV Total 256 ml 200 ml 457.5 ml 907 ml 700 ml Packed Cells 400 ml Output Urine Total 400 ml Gastric Drainage Total 150 ml 200 ml # Voids 3 2 4 # Bowel Movements 2 3 2 Laboratory Laboratory Tests Test 12/02/17 14:52 12/02/17 16:57 12/02/17 23:02 12/03/17 06:05 Stool C. difficile Toxin (PCR) NEGATIVE Stl C. difficile Toxin Epiderm 027 PRESUMPTIVE NEGATIVE Blood Urea Nitrogen 23 24 Creatinine 1.11 1.21 Random Glucose 127 157 Calcium Level 8.1 7.6 Sodium Level 146 150 Potassium Level 3.2 3.1 Chloride Level 114 115 Carbon Dioxide Level 21.7 25.1 Anion Gap 10 10 Estimat Glomerular Filtration Rate 70 63 Lactic Acid Level 3.7 2.7 Troponin I 0.05 0.04 HIV (1&2) Ab and P24 Ag, 4th Gener NONREACTIVE White Blood Count 28.8 Red Blood Count 2.75 Hemoglobin 8.0 Hematocrit 24.1 Mean Corpuscular Volume 87.5 Mean Corpuscular Hemoglobin 29.1 Mean Corpuscular Hemoglobin Concent 33.3 Red Cell Distribution Width 19.2 Platelet Count 105 Mean Platelet Volume 8.9 Prothrombin Time 17.3 Prothromb Time International Ratio 1.7 Total Protein 3.9 Albumin 1.6 Phosphorus Level 3.9 Magnesium Level 1.9 Alkaline Phosphatase 295 Aspartate Amino Transf (AST/SGOT) 41 Alanine Aminotransferase (ALT/SGPT) 134 Total Bilirubin 2.8 Direct Bilirubin 1.5 Indirect Bilirubin 1.3 Lipase 55 Test 12/03/17 11:32 Urine Color YELLOW Urine Turbidity CLEAR Urine pH 6.0 Urine Specific [place] 1.025 Urine Protein TRACE Urine Glucose (UA) NEG Urine Ketones NEG Urine Occult Blood MOD Urine Nitrite NEG Urine Bilirubin NEG Urine Urobilinogen LESS THAN 2.0 Urine Leukocyte Esterase NEG Urine RBC 21 Urine WBC 6 Urine Amorphous Sediment MOD Urine Bacteria RARE Microscopic Urinalysis Comment CULT NOT INDICATED Date/Time Source Procedure Growth Status 12/02/17 09:39 Blood Peripheral Aerobic Blood Culture - Preliminary NO GROWTH IN 1 DAY Resulted 12/02/17 09:39 Blood Peripheral Anaerobic Blood Culture - Preliminary NO GROWTH IN 1 DAY Resulted 11/10/17 02:30 Wound Abdomen Gram Stain - Final Complete 11/10/17 02:30 Wound Culture - Final Jeane Glabrata Complete Imaging Last Impressions Chest X-Ray 12/03/17 0000 Signed Impressions: CONCLUSION: 1. The previously noted mild bibasilar infiltrates have resolved. 2. No new or acute pulmonary infiltrates. Abdomen/Pelvis CT 12/01/17 0000 Signed Impressions: CONCLUSION: 1. The patient has had [address] scans since August 2017. All the scans have demonstrated varying degrees of small bowel wall thickening and gase ous distention of small and large bowel. On today's examination, the loops of s mall and large bowel are predominantly gas-distended. 2. NG tube in place. 3. Tips catheter, gallstone, and nonobstructing right renal stone, stable in a ppearance. Liver Ultrasound 11/28/17 0000 Signed Impressions: CONCLUSION: 1. Gallstone in the gallbladder. No biliary tract obstruction. 2. Diffuse fatty infiltration of the liver. No significant change compared to the prior study. 3. Nonobstructing 1 cm stone in the lower pole of the right kidney. Head CT 11/27/17 0000 Signed Impressions: Service Date/Time: Monday, November 27, 2017 12:57 - CONCLUSION: 1. Stable exam 2. No evidence of acute infarct, hemorrhage, mass or edema. Star Patterson MD Chest CT 11/20/17 0000 Signed Impressions: Service Date/Time: Monday, November 20, 2017 10:54 - CONCLUSION: Increasing coarse interstitial changes in both lungs with small bilateral pleural effusions. Interstitial pattern in the base is moving towards it honeycomb pattern. Hernando Rodrigez MD FACR Abdomen Ultrasound 11/11/17 0000 Signed Impressions: Service Date/Time: Saturday, November 11, 2017 14:19 - CONCLUSION: Trace ascites in the abdomen. Keegan Almaraz MD Physical Exam HEENT: thin, normocephalic; atraumatic; NECK: Neck is supple CHEST: Diminished BS CARDIAC: Regular rate and rhythm with no murmur gallop or rubs. ABDOMEN: Soft, flat, active BS, dressing CDI, binder on EXTREMITIES: No clubbing, cyanosis, or edema. SKIN: pale; no rash; no jaundice. 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 Assessment and Plan Plan - Anemia/? GI bleed- This is likely multifactorial, could be chronic dz, hx of cirrhosis, Crohn, some dark stools and dark gastric output reported, no active bleeding Currently pt not stable for any GI procedures, will monitor - Hx of cirrhosis- had a TIPS procedure in June 2017.On diuretics, CT of A/ P showed small bowel wall thickening and gaseous distention of small and large bowels, Tips catheter, gallstone and nonobstructing right renal stone US showed gallstones, fatty liver and kidney stone - Elevated tumor marker- AFP 523, no evidence of HCC on imaging, could be secondary to cirrhosis - high ammonia/ hepatic encephalopathy- on Lactulose - Crohn's disease who underwent E lap with terminal ileum/ascending colon resection by Dr. Lane on 10/19/17. Patient was subsequently discharged on . He presented back to the ER on 11/04 with abdominal pain underwent labs and CAT scan and was subsequently discharged from the ER and followed up with Dr. Lane. He did develop some wound dehiscence and the upper part of his incision site and some ha removed. 12/03/17, Weakened, but working with OT. Pulled out NGT today, replaced, mild bloody drainage initially. WBC Ct. 28.8, mild decrease. US pending, for TIPS patency. Possible Portal HTN. Plan: - Diet heart healthy - Encourage strengthening with OT. - Xifaxan - Octreotide IV, Can DC am - PPI changed to 40 mg. BID - Doppler US to evaluate Tips pending - EGD if medically stable or actively bleeding - Monitor labs, HGB - Transfuse as needed - Pt seen and examined by Dr. Layne and myself and this note is written on his behalf Ivelisse Puga December 03, 2017 14:16
--- NOTE | 2017-12-03 15:28 | HHI.PR ---
Subjective Remarks The patient was awake and alert. He said that he would like to drink thick liquids. He would like to have the NG tube removed. He wants to get out of the hospital today. Discussed with nursing. Objective Vitals Vital Signs Date Time Temp Pulse Resp B/P (MAP) Pulse Ox O2 Delivery O2 Flow Rate FiO2 12/03/17 12:00 97.8 59 17 108/53 (71) 100 12/03/17 08:00 97.3 70 18 103/53 (70) 99 12/03/17 04:34 97.8 72 16 103/56 (72) 97 12/03/17 00:12 97.1 79 16 105/58 (74) 99 12/03/17 00:00 98 12/02/17 20:00 98.9 80 17 104/54 (71) 99 12/02/17 16:00 97.9 87 17 100/54 (69) 100 I/O 12/02/17 12/02/17 12/02/17 12/03/17 12/03/17 12/03/17 07:00 15:00 23:00 07:00 15:00 23:00 Intake Total 656 ml 200 ml 457.5 ml 907 ml 700 ml Output Total 550 ml 200 ml Balance 106 ml 200 ml 457.5 ml 707 ml 700 ml Intake Oral 0 ml IV Total 256 ml 200 ml 457.5 ml 907 ml 700 ml Packed Cells 400 ml Output Urine Total 400 ml Gastric Drainage Total 150 ml 200 ml # Voids 3 2 4 # Bowel Movements 2 3 2 Result Diagram: 12/03/1705 12/03/17 0605 Imaging Last Impressions Chest X-Ray 12/03/17 0000 Signed Impressions: CONCLUSION: 1. The previously noted mild bibasilar infiltrates have resolved. 2. No new or acute pulmonary infiltrates. Abdomen/Pelvis CT 12/01/17 0000 Signed Impressions: CONCLUSION: 1. The patient has had [address] scans since August 2017. All the scans have demonstrated varying degrees of small bowel wall thickening and gase ous distention of small and large bowel. On today's examination, the loops of s mall and large bowel are predominantly gas-distended. 2. NG tube in place. 3. Tips catheter, gallstone, and nonobstructing right renal stone, stable in a ppearance. Liver Ultrasound 11/28/17 0000 Signed Impressions: CONCLUSION: 1. Gallstone in the gallbladder. No biliary tract obstruction. 2. Diffuse fatty infiltration of the liver. No significant change compared to the prior study. 3. Nonobstructing 1 cm stone in the lower pole of the right kidney. Head CT 11/27/17 0000 Signed Impressions: Service Date/Time: Monday, November 27, 2017 12:57 - CONCLUSION: 1. Stable exam 2. No evidence of acute infarct, hemorrhage, mass or edema. Star Patterson MD Chest CT 11/20/17 0000 Signed Impressions: Service Date/Time: Monday, November 20, 2017 10:54 - CONCLUSION: Increasing coarse interstitial changes in both lungs with small bilateral pleural effusions. Interstitial pattern in the base is moving towards it honeycomb pattern. Hernando Rodrigez MD FACR Abdomen Ultrasound 11/11/17 0000 Signed Impressions: Service Date/Time: Saturday, November 11, 2017 14:19 - CONCLUSION: Trace ascites in the abdomen. Keegan Almaraz MD Objective Remarks General: Cachectic male in no acute distress. HEENT: NG tube in place. Heart: Regular rate and rhythm. No murmur. Lungs: Clear to auscultation bilaterally. No wheezes, rales, or rhonchi. Breathing is nonlabored. Abdomen: Soft, nontender, nondistended. Binder in place. Extremities: No lower extremity edema. Psych: Calm. Neuro: Normal speech. No focal deficits noted. Confused. Procedures 11/10/17 central line placement 11/10/17 pigtail chest tube placement A/P Problem List: (1) History of resection of terminal ileum ICD Code: Z98.890 - Other specified postprocedural states; Z90.49 - Acquired absence of other specified parts of digestive tract Status: Acute (2) Tobacco abuse ICD Code: Z72.0 - Tobacco use Status: Acute (3) Wound dehiscence ICD Code: T81.30XA - Disruption of wound, unspecified, initial encounter; Z90.49 - Acquired absence of other specified parts of digestive tract Status: Acute (4) Crohns disease ICD Code: K50.90 - Crohn's disease, unspecified, without complications Status: Acute (5) Hypokalemia ICD Code: E87.6 - Hypokalemia Status: Acute (6) FEN Status: Acute (7) Leukocytosis ICD Code: D72.829 - Elevated white blood cell count, unspecified Status: Resolved Assessment and Plan Elevated LFTs/ Hepatic encephalopathy/ GIB Ammonia level markedly elevated. Liver US without acute process. Hepatitis profile negative. CT abdomen without acute pathology, gaseous distention noted. Has had reports of coffee ground emesis. GI consult appreciated. - continue standing lactulose. - trend LFTs. - GI following. - PPI; octreotide. - DC NG tube and try p.o. diet. Lactic acidosis/ Sepsis/ Marked leukocytosis Acidosis be s/t hepatic encephalopathy, GIB, sepsis. ID consult appreciated. C. difficile PCR negative. HIV serology negative. - IVFs. - continue IV vancomycin and Zosyn. - ID following. - Follow cultures. Acute hypoxic respiratory failure/ ARDS Improved. Appreciate pulmonology recommendations. - d/c steroids. - oxygen and nebs as needed. - IS. - encourage ambulation. Status post colon resection with wound dehiscence The pt has Crohn's disease. Colorectal surgery consult appreciated. - Management per colorectal surgery. Anemia/ thrombocytopenia Question underlying bone marrow process. May be s/t chronic disease. - follow CBC and transfuse as needed. S/p one unit 12/02. Deconditioning The pt is very weak and confused. - Continue physical therapy, occupational therapy. Hypernatremia/ hypokalemia Improving. - d/c Lasix. - D5W with potassium. - follow BMP. DVT prophylaxis: Lovenox Problem Qualifiers (1) Crohns disease: Qualified Codes: K50.818 - Crohn's disease of both small and large intestine with other complication Francis Levi DO December 03, 2017 15:28
[2017-12-03] MEDS: PANTOPRAZOLE SOD 40 MG DELAYED RELEASE TAB PO SCH ×2 (16:51→21:01)
--- NOTE | 2017-12-03 18:02 | HHI.PR ---
Subjective Remarks 52 YOWM with Crohn's dis, Cirrohosis, s/p TIPS, abd surgery,ARDS Breathing better Weaned to RA Feels much better NGT Removed Started PO Anxious to go home. Objective Vital Signs Vital Signs Date Time Temp Pulse Resp B/P (MAP) Pulse Ox O2 Delivery O2 Flow Rate FiO2 12/03/17 16:00 97.3 100 16 104/56 (72) 92 12/03/17 12:00 97.8 59 17 108/53 (71) 100 12/03/17 08:00 97.3 70 18 103/53 (70) 99 12/03/17 04:34 97.8 72 16 103/56 (72) 97 12/03/17 00:12 97.1 79 16 105/58 (74) 99 12/03/17 00:00 98 12/02/17 20:00 98.9 80 17 104/54 (71) 99 I/O 12/02/17 12/02/17 12/02/17 12/03/17 12/03/17 12/03/17 07:00 15:00 23:00 07:00 15:00 23:00 Intake Total 656 ml 200 ml 457.5 ml 907 ml 700 ml 100 ml Output Total 550 ml 200 ml Balance 106 ml 200 ml 457.5 ml 707 ml 700 ml 100 ml Intake Oral 0 ml IV Total 256 ml 200 ml 457.5 ml 907 ml 700 ml 100 ml Packed Cells 400 ml Output Urine Total 400 ml Gastric Drainage Total 150 ml 200 ml # Voids 3 2 4 # Bowel Movements 2 3 2 Result Diagram: 12/03/1760412/03/17604 Objective Remarks GENERAL: MBMNWM, mild sob SKIN: Warm and dry. HEAD: Normocephalic. EYES: No scleral icterus. No injection or drainage. NECK: Supple, trachea midline. No JVD or lymphadenopathy. CARDIOVASCULAR: Regular rate and rhythm without murmurs, gallops, or rubs. RESPIRATORY: Breath sounds equal bilaterally. No accessory muscle use. GASTROINTESTINAL: Abdomen soft, non-tender, nondistended. Abd wound dressed MUSCULOSKELETAL: No cyanosis, or edema. BACK: Nontender without obvious deformity. No CVA tenderness. A/P Assessment and Plan IMPRESSION: 1. Bilateral lung infiltrate with interstitial pattern and appearing fibrotic changes, possibly has acute respiratory distress syndrome and also possible underlying interstitial lung disease. 2. History of nicotine use. 3. Cirrhosis of the liver, status post transjugular intrahepatic portosystemic shunt procedure. 4. Crohn's disease. PLAN Stable on RA Keep sat 90-94% Cont Abx Monitor H/H Zach Mas MD December 03, 2017 18:02
[2017-12-03] MEDS: CHLORHEXIDINE GLUCONATE 2 % 1 PACK (2 CLOTHS) TOP SCH (21:03)
[2017-12-04] VITALS (13 sets, daily range): BP systolic 110–134; BP diastolic 56–65; PULSE 51–82; RESP 17–19; TEMP 97.3–98.1; O2SAT 98–100
[2017-12-04] MEDS: POTASSIUM CHLORIDE INJ 40 MEQ in DEXTROSE 5% IN WATE 1000ML INJ 1,000 ML IV SCH ×4 (02:10→18:00)
[2017-12-04] MEDS: OCTREOTIDE INJ 100 MCG/ML VIAL IV PUSH SCH ×3 (04:44→21:22)
[2017-12-04] MEDS: PIPERACIL-TAZO 4.5 GM PREMIX 100 ML IV SCH (04:44)
[2017-12-04] MEDS: RIFAXIMIN 200 MG TAB PO SCH ×3 (04:44→21:21)
[2017-12-04 07:19] LABS: MEAN CELL VOLUME 87.3 FL (80.0-100.0); MEAN CORPUSCULAR HEMOGLOBIN 28.6 PG (27.0-34.0); MEAN CORPUSCULAR HGB CONC 32.8 % (32.0-36.0); MEAN PLATELET VOLUME 9.5 FL (7.0-11.0); PLATELET COUNT 79 TH/MM3 (150-450); RED BLOOD COUNT 2.24 MIL/MM3 (4.50-5.90); WHITE BLOOD COUNT 21.2 TH/MM3 (4.0-11.0)
[2017-12-04 07:38] LABS: HEMOGLOBIN 6.4 GM/DL (13.0-17.0)
[2017-12-04 07:39] LABS: HEMATOCRIT 19.6 % (39.0-51.0)
[2017-12-04 07:51] LABS: ALBUMIN 1.4 GM/DL (3.4-5.0); BICARBONATE 26.8 MEQ/L (21.0-32.0); CALCIUM 7.1 MG/DL (8.5-10.1); CREATININE 0.92 MG/DL (0.60-1.30); DIRECT BILIRUBIN ADULT 0.9 MG/DL (0.0-0.2); INDIRECT BILIRUBIN 0.7 MG/DL (0.0-0.8); MAGNESIUM 1.7 MG/DL (1.5-2.5); PHOSPHORUS 2.2 MG/DL (2.5-4.9); TOTAL BILIRUBIN ADULT 1.6 MG/DL (0.2-1.0); TOTAL PROTEIN 3.5 GM/DL (6.4-8.2)
[2017-12-04] MEDS: SODIUM CHLORIDE 0.9% FLUSH 10 ML FLUSH IV FLUSH SCH ×2 (08:27→20:36)
[2017-12-04] MEDS: PANTOPRAZOLE SOD 40 MG DELAYED RELEASE TAB PO SCH ×2 (08:28→20:39)
[2017-12-04] MEDS: predniSONE 20 MG TAB NG SCH ×2 (08:28→20:39)
[2017-12-04] MEDS: LACTULOSE SYRUP 20 GM/30 ML CUP NG SCH ×4 (08:28→20:35)
[2017-12-04] MEDS: NYSTATIN SUSP 500,000 U/5 ML CUP SWISH-SWAL SCH ×4 (08:28→20:39)
[2017-12-04] MEDS: ACETAMINOPHEN/HYDROcodone 325 MG/7.5 MG TAB PO PRN ×2 (08:29→21:23)
[2017-12-04] MEDS: VANCOMYCIN INJ 750 MG in SODIUM CHLOR 0.9% 250 ML INJ 250 ML IV SCH (08:30)
[2017-12-04 09:27] LABS: CALCIUM-PROTEIN CORRECTED 9.2 MG/DL (8.5-10.1)
[2017-12-04] MEDS ORDERED: PHARMACY ORDERED LAB ONE (09:45)
--- NOTE | 2017-12-04 10:59 | HHI.IDPN ---
Subjective Subjective Remarks Patient is a 53-year-old male, with history of Crohn's disease, had undergone terminal ileum and ascending colon resection October 19, 2017. He was admitted on November 09 because he was not feeling well, with generalized weakness, and abdominal pain. In the ED he was hypotensive and was noted to have wound dehiscence. He was in the ICU, and he was on pressors initially. He received a course of antibiotic including Zosyn, vancomycin, doxycycline, Flagyl, and Diflucan. He was transferred to the main ICU on November 10. During his hospitalization in the ICU, patient developed bilateral pulmonary infiltrates, which was felt to be due to ARDS. His hemodynamics improved as well as his pulmonary status. He was transferred to the hospitalist service from the ordering box operator service. Patient's white count has always been in the 20,000. He was on Solu-Cortef from November 19, and then Solu-Medrol from November 20 - December 01. His white count jumped up to greater than 40,000 today, infectious disease consultation has been requested to evaluate the patient. Notes reviewed Temps ok Very awake and interactive this morning, but confused Has NGT in place, with bloody fluid On RA Not SOB BP ok He has no central line No Guerin catheter New CXR clear CT of the abdomen and pelvis 12/01 WBC down to 21 Hgb down to 6 this morning Antibiotics Vancomycin Zosyn Current Medications Medications (Trade) Dose Ordered Sig/Vikki Route Start Time Stop Time Status Last Admin (NS Flush) 2 ml UNSCH PRN IV FLUSH 11/09/17 14:45 (NS Flush) 2 ml BID IV FLUSH 11/09/17 21:00 12/04/17 08:27 ([facility] [place] [facility]) 1 Q361D XX 11/09/17 14:45 11/10/17 20:47 (Chlorhexidine 2% Cloth) Taper DAILY@04 TOP 11/10/17 04:00 11/06/18 03:59 11/12/17 04:00 (Chlorhexidine 2% Cloth) 3 pack UNSCH PRN TOP 11/09/17 14:45 (Brethine Inj) 1 mg UNSCH PRN SQ 11/09/17 20:45 ([place] 7.5-325 Mg) 1 tab Q4H PRN PO 11/09/17 23:45 11/24/17 13:58 (Mycostatin Liq) 5 ml QID SWISH-SWAL 11/10/17 13:00 12/04/17 08:28 (Albuterol Neb) 2.5 mg Q2HR NEB PRN NEB 11/10/17 21:30 11/23/17 02:56 (K-Lyte Cl Eff) 50 meq BID PO 11/23/17 21:00 Future Hold 11/29/17 09:19 (Lasix) 40 mg BID@,18 PO 11/23/17 18:00 Future Hold 11/24/17 08:08 ([place] 7.5-325 Mg) 2 tab Q6H PRN PO 11/24/17 17:15 12/04/17 08:29 (Xanax) 0.5 mg DAILY PRN PO 11/29/17 12:45 12/03/17 01:22 (Lactulose Liq) 30 ml QID NG 12/01/17 18:00 12/04/17 08:28 Vancomycin HCl 750 mg/Sodium Chloride 257.5 ml @ 257.5 mls/ hr Q12H IV 12/02/17 10:00 12/04/17 08:30 Pharmacy Profile Note 0 ml @ 0 mls/hr UNSCH OTHER 12/02/17 09:15 Piperacillin Sod/ Tazobactam Sod 100 ml @ 200 mls/hr Q6H IV 12/02/17 11:00 12/04/17 04:44 (Xifaxan) 400 mg Q8HR PO 12/02/17 14:00 12/04/17 04:44 (SandoSTATIN INJ) 100 mcg Q8HR IV PUSH 12/02/17 14:00 12/05/17 13:59 12/04/17 04:44 (Deltasone) 20 mg BID NG 12/02/17 14:45 12/04/17 08:28 Potassium Chloride 40 meq/ Dextrose 1,020 ml @ 125 mls/hr Q8H10M IV 12/03/17 10:00 12/04/17 02:10 (Protonix) 40 mg Q12HR PO 12/03/17 14:30 12/04/17 08:28 Lines PIV with no evidence of infection Past Medical History Crohn Cirrhosis Gastritis Past Surgical History E lap with terminal ileum/ascending colon resection by Dr. Lane on 10/19/17 Allergies: Coded Allergies: tetanus toxoid, adsorbed (Verified Allergy, Severe, Nausea/Vomiting, ) Objective . Vital Signs Date Time Temp Pulse Resp B/P (MAP) Pulse Ox O2 Delivery O2 Flow Rate FiO2 12/04/17 10:32 97.3 62 17 122/63 100 12/04/17 10:14 97.7 68 18 117/63 12/04/17 08:05 Room Air 12/04/17 08:00 97.5 51 19 118/59 (78) 98 12/04/17 04:00 98.1 80 18 121/57 (78) 100 12/04/17 00:00 97.9 82 18 120/62 (81) 100 12/03/17 20:00 70 12/03/17 20:00 97.2 81 18 115/59 (77) 100 12/03/17 16:00 97.3 100 16 104/56 (72) 92 12/03/17 12:00 97.8 59 17 108/53 (71) 100 . Laboratory Tests Test 12/03/17 06:05 12/04/17 06:54 White Blood Count 28.8 TH/MM3 21.2 TH/MM3 Red Blood Count 2.75 MIL/MM3 2.24 MIL/MM3 Hemoglobin 8.0 GM/DL 6.4 GM/DL Hematocrit 24.1 % 19.6 % Mean Corpuscular Volume 87.5 FL 87.3 FL Mean Corpuscular Hemoglobin 29.1 PG 28.6 PG Mean Corpuscular Hemoglobin Concent 33.3 % 32.8 % Red Cell Distribution Width 19.2 % 19.0 % Platelet Count 105 TH/MM3 79 TH/MM3 Mean Platelet Volume 8.9 FL 9.5 FL Laboratory Tests Test 12/02/17 16:57 12/02/17 23:02 12/03/17 06:05 12/04/17 06:54 Blood Urea Nitrogen 23 MG/DL 24 MG/DL 16 MG/DL Creatinine 1.11 MG/DL 1.21 MG/DL 0.92 MG/DL Random Glucose 127 MG/DL 157 MG/DL 131 MG/DL Calcium Level 8.1 MG/DL 7.6 MG/DL 7.1 MG/DL Sodium Level 146 MEQ/L 150 MEQ/L 141 MEQ/L Potassium Level 3.2 MEQ/L 3.1 MEQ/L 3.3 MEQ/L Chloride Level 114 MEQ/L 115 MEQ/L 106 MEQ/L Carbon Dioxide Level 21.7 MEQ/L 25.1 MEQ/L 26.8 MEQ/L Anion Gap 10 MEQ/L 10 MEQ/L 8 MEQ/L Estimat Glomerular Filtration Rate 70 ML/MIN 63 ML/MIN 86 ML/MIN Lactic Acid Level 3.7 mmol/L 2.7 mmol/L Troponin I 0.05 NG/ML 0.04 NG/ML Total Protein 3.9 GM/DL 3.5 GM/DL Albumin 1.6 GM/DL 1.4 GM/DL Phosphorus Level 3.9 MG/DL 2.2 MG/DL Magnesium Level 1.9 MG/DL 1.7 MG/DL Alkaline Phosphatase 295 U/L 215 U/L Aspartate Amino Transf (AST/SGOT) 41 U/L 27 U/L Alanine Aminotransferase (ALT/SGPT) 134 U/L 93 U/L Total Bilirubin 2.8 MG/DL 1.6 MG/DL Direct Bilirubin 1.5 MG/DL 0.9 MG/DL Indirect Bilirubin 1.3 MG/DL 0.7 MG/DL Lipase 55 U/L Protein Corrected Calcium 9.2 MG/DL Microbiology Date/Time Source Procedure Growth Status 12/02/17 09:39 Blood Peripheral Aerobic Blood Culture - Preliminary NO GROWTH IN 1 DAY Resulted 12/02/17 09:39 Blood Peripheral Anaerobic Blood Culture - Preliminary NO GROWTH IN 1 DAY Resulted 12/02/17 09:34 Blood Peripheral Aerobic Blood Culture - Preliminary NO GROWTH IN 1 DAY Resulted 12/02/17 09:34 Blood Peripheral Anaerobic Blood Culture - Preliminary NO GROWTH IN 1 DAY Resulted Imaging RADIOLOGY STUDIES/FILMS REVIEWED Last Impressions Abdomen/Pelvis CT 12/01/17 Signed Impressions: CONCLUSION: 1. The patient has had [address] scans since August 2017. All the scans have demonstrated varying degrees of small bowel wall thickening and gase ous distention of small and large bowel. On today's examination, the loops of s mall and large bowel are predominantly gas-distended. 2. NG tube in place. 3. Tips catheter, gallstone, and nonobstructing right renal stone, stable in a ppearance. Liver Ultrasound 11/28/17 Signed Impressions: CONCLUSION: 1. Gallstone in the gallbladder. No biliary tract obstruction. 2. Diffuse fatty infiltration of the liver. No significant change compared to the prior study. 3. Nonobstructing 1 cm stone in the lower pole of the right kidney. Head CT 11/27/17 0000 Signed Impressions: Service Date/Time: Monday, November 27, 2017 12:57 - CONCLUSION: 1. Stable exam 2. No evidence of acute infarct, hemorrhage, mass or edema. Star Patterson MD Chest X-Ray 11/24/17 0600 Signed Impressions: Service Date/Time: Friday, November 24, 2017 03:30 - CONCLUSION: Considerable improvement but residual bilateral infiltrates. Lalo Zavala Jr., MD Chest CT 11/20/17 0000 Signed Impressions: Service Date/Time: Monday, November 20, 2017 10:54 - CONCLUSION: Increasing coarse interstitial changes in both lungs with small bilateral pleural effusions. Interstitial pattern in the base is moving towards it honeycomb pattern. Hernando Rodrigez MD FACR Abdomen Ultrasound 11/11/17 0000 Signed Impressions: Service Date/Time: Saturday, November 11, 2017 14:19 - CONCLUSION: Trace ascites in the abdomen. Keegan Almaraz MD Physical Exam GENERAL: awake and alert, NAD, confused. SKIN: Warm and dry. Has scattered ecchymosis in both upper extremities. No rash noted. HEAD: Atraumatic. Normocephalic. No temporal wasting, or tenderness. EYES: [place] conjunctiva. No petechia or hemorrhage. Pupils equal, round and reactive to light. Extraocular movements full and intact. No scleral icterus. No injection or drainage. EARS, NOSE AND THROAT: Nose without bleeding or purulent nasal discharge. Has an NG tube in place. Has dry oral mucosa. NECK: Trachea midline. Supple and not tender, no meningeal signs CARDIOVASCULAR: Regular rate and rhythm. No murmurs, rubs or gallops heard RESPIRATORY: Clear to auscultation. Breath sounds equal bilaterally. No rales , wheezing or rhonchi. Decreased breath sounds at the bases. ABDOMEN: Soft, non-tender, nondistended. Bowel sounds present and normoactive. No guarding. No rebound. No organomegaly. Has open wound in midline incision with yellow slough at undermining. Has smaller wound lower portion of midline incision with small amount of yellow slough. Has small amount serous draianage from both wounds, no periwound erythema. EXTREMITIES: No clubbing, cyanosis, or edema. No joint effusion, has good ROM. No calf tenderness. Well perfused and warm. NEUROLOGICAL: Non-focal. PSYCHIATRIC: Calm and cooperative LINE: No evidence of infection Assessment & Plan Remarks IMPRESSION Worsening leukocytosis, etiology? - likely reactive due to blood loss - no new infection identified - no line - no guerin - CT A/P no abscess - wound looks clean - has had borderline low BP, ?new sepsis, ?relative adrenal insufficiency S/P Abx for sepsis S/P ARDS, last CXR better, and oxygenating better Cirrhosis Cachexia RECOMMENDATION Stop all Abx GI following for his GIB Follow C/S Monitor progress Jaky Savage MD December 04, 2017 10:59
--- NOTE | 2017-12-04 12:33 | RADRPT ---
EXAM DATE: 12/04/2017 12:17 PM EDT AGE/SEX: 52 years / Male INDICATIONS: Evaluate TIPS. CLINICAL DATA: This is the patient's sequela encounter. Patient reports that signs and symptoms have been present for 1 day and indicates a pain score of 0/10. MEDICAL/SURGICAL HISTORY: . Cardiovascular disease. Pancreatitis. Hiatal hernia. . Colon r esection. TIPS. COMPARISON: [facility] – [place] LIVER VASCULATURE-COMPLETE, 06/15/2017. . MEASUREMENTS: Liver:__ 17.4 cm. Common Bile Duct:___ 4mm. Left Kidney:___11.6 x 5.0 x 5.2 . Spleen:___10.4 . FINDINGS: Liver: Normal echotexture without focal lesion or ductal dilatation. Small amount of ascites. Portal Vein: TIPS shunt is patent. Flow seen in the main portal vein, hepatic artery, hepatic vein a nd splenic vein is hepatofugal. Normal flow in hepatic artery. Common Duct: No intralumincal mass or stone visualized. Gallbladder: Echogenic focus within the gallbladder measures 5 x 4 mm could be a small polyp. Pancreas: Not well visualized. Right Kidney: No mass or hydronephrosis. Echogenic focus lower pole measures 8 mm. Pleural Effusion: None Spleen: No focal lesion. Aorta: IVC: Unremarkable. CONCLUSION: 1. TIPS is patent. 2. Minimal ascites. 3. Possible nonobstructing calculus lower pole right kidney measures 8 mm. Electronically signed by: Mauricio Archibald MD 12/04/2017 12:32 PM EDT
--- NOTE | 2017-12-04 13:54 | HHI.PR ---
Subjective Remarks The patient was resting in bed comfortably. He felt well. He said that he wanted to eat some Jell-O, beef broth and Ensure. He had no acute complaints. Discussed with nursing. Objective Vitals Vital Signs Date Time Temp Pulse Resp B/P (MAP) Pulse Ox O2 Delivery O2 Flow Rate FiO2 12/04/17 13:24 97.4 60 18 119/58 100 12/04/17 13:03 97.3 58 17 117/56 100 12/04/17 12:50 97.5 58 18 116/58 99 12/04/17 12:00 97.5 58 17 116/58 (77) 100 12/04/17 10:32 97.3 62 17 122/63 100 12/04/17 10:14 97.7 68 18 117/63 12/04/17 08:05 Room Air 12/04/17 08:00 97.5 51 19 118/59 (78) 98 12/04/17 04:00 98.1 80 18 121/57 (78) 100 12/04/17 00:00 97.9 82 18 120/62 (81) 100 12/03/17 20:00 70 12/03/17 20:00 97.2 81 18 115/59 (77) 100 12/03/17 16:00 97.3 100 16 104/56 (72) 92 I/O 12/03/17 12/03/17 12/03/17 12/04/17 12/04/17 12/04/17 07:00 15:00 23:00 07:00 15:00 23:00 Intake Total 907 ml 700 ml 862 ml 597 ml 576 ml Output Total 200 ml 300 ml 500 ml Balance 707 ml 700 ml 562 ml 97 ml 576 ml Intake Oral 360 ml 240 ml IV Total 907 ml 700 ml 502 ml 357 ml 257 ml Packed Cells 319 ml Output Urine Total 300 ml 500 ml Gastric Drainage Total 200 ml # Voids 4 # Bowel Movements 2 2 3 Result Diagram: 12/04/17 0654 12/04/17 0654 Imaging Last Impressions Liver Ultrasound 12/04/17 0000 Signed Impressions: CONCLUSION: 1. TIPS is patent. 2. Minimal ascites. 3. Possible nonobstructing calculus lower pole right kidney measures 8 mm. Chest X-Ray 12/03/17 0000 Signed Impressions: CONCLUSION: 1. The previously noted mild bibasilar infiltrates have resolved. 2. No new or acute pulmonary infiltrates. Abdomen/Pelvis CT 12/01/17 0000 Signed Impressions: CONCLUSION: 1. The patient has had [address] scans since August 2017. All the scans have demonstrated varying degrees of small bowel wall thickening and gase ous distention of small and large bowel. On today's examination, the loops of s mall and large bowel are predominantly gas-distended. 2. NG tube in place. 3. Tips catheter, gallstone, and nonobstructing right renal stone, stable in a ppearance. Head CT 11/27/17 0000 Signed Impressions: Service Date/Time: Monday, November 27, 2017 12:57 - CONCLUSION: 1. Stable exam 2. No evidence of acute infarct, hemorrhage, mass or edema. Star Patterson MD Chest CT 11/20/17 0000 Signed Impressions: Service Date/Time: Monday, November 20, 2017 10:54 - CONCLUSION: Increasing coarse interstitial changes in both lungs with small bilateral pleural effusions. Interstitial pattern in the base is moving towards it honeycomb pattern. Hernando Rodrigez MD FACR Abdomen Ultrasound 11/11/17 0000 Signed Impressions: Service Date/Time: Saturday, November 11, 2017 14:19 - CONCLUSION: Trace ascites in the abdomen. Keegan Almaraz MD Objective Remarks General: Cachectic male in no acute distress. HEENT: NC, AT. Heart: Regular rate and rhythm. No murmur. Lungs: Clear to auscultation bilaterally. No wheezes, rales, or rhonchi. Breathing is nonlabored. Abdomen: Soft, nontender, nondistended. Binder in place. Extremities: No lower extremity edema. Psych: Calm. Neuro: Normal speech. No focal deficits noted. Procedures 11/10/17 central line placement 11/10/17 pigtail chest tube placement A/P Problem List: (1) History of resection of terminal ileum ICD Code: Z98.890 - Other specified postprocedural states; Z90.49 - Acquired absence of other specified parts of digestive tract Status: Acute (2) Tobacco abuse ICD Code: Z72.0 - Tobacco use Status: Acute (3) Wound dehiscence ICD Code: T81.30XA - Disruption of wound, unspecified, initial encounter; Z90.49 - Acquired absence of other specified parts of digestive tract Status: Acute (4) Crohns disease ICD Code: K50.90 - Crohn's disease, unspecified, without complications Status: Acute (5) Hypokalemia ICD Code: E87.6 - Hypokalemia Status: Acute (6) FEN Status: Acute (7) Leukocytosis ICD Code: D72.829 - Elevated white blood cell count, unspecified Status: Resolved Assessment and Plan Elevated LFTs/ Hepatic encephalopathy/ GIB Ammonia level markedly elevated. Liver US without acute process. Hepatitis profile negative. CT abdomen without acute pathology, gaseous distention noted. Has had reports of coffee ground emesis. GI consult appreciated. US revealed that TIPS is patent. Hgb 6.4 12/04. - two units prbcs 12/04. - follow CBC. - continue standing lactulose. - trend LFTs. - GI following. - PPI; octreotide. - ADAT. Lactic acidosis/ Sepsis/ Marked leukocytosis Improved. ID consult appreciated. C. difficile PCR negative. HIV serology negative. - IVFs. - ID following. D/c antibiotics and monitor. - Follow cultures. Acute hypoxic respiratory failure/ ARDS Improved. Appreciate pulmonology recommendations. - d/c steroids. - oxygen and nebs as needed. - IS. - encourage ambulation. Status post colon resection with wound dehiscence The pt has Crohn's disease. Colorectal surgery consult appreciated. - Management per colorectal surgery. Anemia/ thrombocytopenia Pt with GIB as above. Transfusing 2 units 12/04. - follow CBC and transfuse as needed. Deconditioning The pt is very weak and confused. - Continue physical therapy, occupational therapy. Hypernatremia/ hypokalemia Improving. - d/c Lasix. - D5W with potassium. - follow BMP. DVT prophylaxis: Lovenox Discharge Planning The pt will need further GI work-up for GIB. Needs to continue lactulose to prevent encephalopathy. Monitor off of antibiotics. Await colorectal surgery clearance. Problem Qualifiers (1) Crohns disease: Qualified Codes: K50.818 - Crohn's disease of both small and large intestine with other complication Francis Levi DO December 04, 2017 13:54
--- NOTE | 2017-12-04 15:19 | HHI.GIFU ---
Subjective Remarks Pt resting in bed, in no apparent distress Reports all over pain but denies any abdominal pain specifically Denies nausea, vomiting Continued to have multiple BMs, states dark brown in color (Dinorah Gillespie) Objective Vitals I&O Vital Signs Date Time Temp Pulse Resp B/P (MAP) Pulse Ox O2 Delivery O2 Flow Rate FiO2 12/04/17 13:24 97.4 60 18 119/58 100 12/04/17 13:03 97.3 58 17 117/56 100 12/04/17 12:50 97.5 58 18 116/58 99 12/04/17 12:00 97.5 58 17 116/58 (77) 100 12/04/17 10:32 97.3 62 17 122/63 100 12/04/17 10:14 97.7 68 18 117/63 12/04/17 08:05 Room Air 12/04/17 08:00 97.5 51 19 118/59 (78) 98 12/04/17 04:00 98.1 80 18 121/57 (78) 100 12/04/17 00:00 97.9 82 18 120/62 (81) 100 12/03/17 20:00 70 12/03/17 20:00 97.2 81 18 115/59 (77) 100 12/03/17 16:00 97.3 100 16 104/56 (72) 92 I/O 12/03/17 12/03/17 12/03/17 12/04/17 12/04/17 12/04/17 06:59 14:59 22:59 06:59 14:59 22:59 Intake Total 907 ml 700 ml 862 ml 597 ml 576 ml Output Total 200 ml 300 ml 500 ml Balance 707 ml 700 ml 562 ml 97 ml 576 ml Intake Oral 360 ml 240 ml IV Total 907 ml 700 ml 502 ml 357 ml 257 ml Packed Cells 319 ml Output Urine Total 300 ml 500 ml Gastric Drainage Total 200 ml # Voids 4 # Bowel Movements 2 2 3 Laboratory Laboratory Tests Test 12/04/17 06:54 12/04/17 08:13 White Blood Count 21.2 Red Blood Count 2.24 Hemoglobin 6.4 Hematocrit 19.6 Mean Corpuscular Volume 87.3 Mean Corpuscular Hemoglobin 28.6 Mean Corpuscular Hemoglobin Concent 32.8 Red Cell Distribution Width 19.0 Platelet Count 79 Mean Platelet Volume 9.5 Blood Urea Nitrogen 16 Creatinine 0.92 Random Glucose 131 Total Protein 3.5 Albumin 1.4 Calcium Level 7.1 Phosphorus Level 2.2 Magnesium Level 1.7 Alkaline Phosphatase 215 Aspartate Amino Transf (AST/SGOT) 27 Alanine Aminotransferase (ALT/SGPT) 93 Total Bilirubin 1.6 Direct Bilirubin 0.9 Sodium Level 141 Potassium Level 3.3 Chloride Level 106 Carbon Dioxide Level 26.8 Anion Gap 8 Estimat Glomerular Filtration Rate 86 Protein Corrected Calcium 9.2 Indirect Bilirubin 0.7 Vancomycin Level Trough 13.2 Date/Time Source Procedure Growth Status 12/02/17 09:39 Blood Peripheral Aerobic Blood Culture - Preliminary NO GROWTH IN 2 DAYS Resulted 12/02/17 09:39 Blood Peripheral Anaerobic Blood Culture - Preliminary NO GROWTH IN 2 DAYS Resulted 11/10/17 02:30 Wound Abdomen Gram Stain - Final Complete 11/10/17 02:30 Wound Culture - Final Jeane Glabrata Complete Imaging Last Impressions Liver Ultrasound 12/04/17 0000 Signed Impressions: CONCLUSION: 1. TIPS is patent. 2. Minimal ascites. 3. Possible nonobstructing calculus lower pole right kidney measures 8 mm. Chest X-Ray 12/03/17 0000 Signed Impressions: CONCLUSION: 1. The previously noted mild bibasilar infiltrates have resolved. 2. No new or acute pulmonary infiltrates. Abdomen/Pelvis CT 12/01/17 0000 Signed Impressions: CONCLUSION: 1. The patient has had [address] scans since August 2017. All the scans have demonstrated varying degrees of small bowel wall thickening and gase ous distention of small and large bowel. On today's examination, the loops of s mall and large bowel are predominantly gas-distended. 2. NG tube in place. 3. Tips catheter, gallstone, and nonobstructing right renal stone, stable in a ppearance. Head CT 11/27/17 0000 Signed Impressions: Service Date/Time: Monday, November 27, 2017 12:57 - CONCLUSION: 1. Stable exam 2. No evidence of acute infarct, hemorrhage, mass or edema. Star Patterson MD Chest CT 11/20/17 0000 Signed Impressions: Service Date/Time: Monday, November 20, 2017 10:54 - CONCLUSION: Increasing coarse interstitial changes in both lungs with small bilateral pleural effusions. Interstitial pattern in the base is moving towards it honeycomb pattern. Hernando Rodrigez MD FACR Abdomen Ultrasound 11/11/17 0000 Signed Impressions: Service Date/Time: Saturday, November 11, 2017 14:19 - CONCLUSION: Trace ascites in the abdomen. Keegan Almaraz MD Physical Exam HEENT: Normocephalic; atraumatic (+) icterus CHEST: Even/unlabored CARDIAC: RRR ABDOMEN: Soft, flat, bowel sounds active, abdominal binder in place EXTREMITIES: No clubbing, cyanosis, or edema. SCHOOL INSPECTOR: Alert and oriented (Dinorah Gillespie) Assessment and Plan Plan Assessment: - Anemia with reports of bloody output from NG tube over the weekend H/H currently 6.4/19.6- pt denies melena. EGD December 2016 --> Gastritis in the antrum. Hiatal hernia. Normal duodenum. Esophagus was normal. Tight cricopharyngeal muscle with extensive compression in the upper esophageal sphincter. Pathology (antrum) minimal chronic gastritis, negative for H Pylori. - History of Crohns with high grade obstruction of the terminal ileum S/P exploratory laparotomy with resection of the terminal ileum and ascending colon on 10/19/2017 S/P would dehiscence- procedure done by Dr. Lane CT abdomen and pelvis W IV contrast (12/01) Pt has had [address] scans since August, all scans have demonstrated varying degrees of small bowel wall thickening and gaseous distentions of the small and large bowel. Loops of small and large bowel are predominantly gas- distended. 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 liver vasculature/portal/hepatic vein (12/04) TIPS is patent, minimal ascites LFTs (12/04) AST-27 ALT-93 Alk phos-215 T bili-1.6 Elevated ammonia- on Xifaxan and Lactulose Thrombocytopenia (platelets-79) Coagulopathy (INR-1.7) Hypoalbuminemia (albumin-1.4) Plan: - EGD tomorrow - Obtain consent - NPO after MN - Protonix - Octreotide - Lactulose - Xifaxan - Monitor labs - Further recommendations based on findings of above Pt has been seen and examined by myself and Dr. Burkett and this note is written on his behalf (Dinorah Gillespie) Physician Comments Seen and examined with ROMAIN, transfuse as needed. Protonix. Pt with patent TIPS so doubt variceal bleed. EGD planned. (Moises Chou MD) Dinorah Gillespie December 04, 2017 15:19 Moises Chou MD December 04, 2017 16:39
--- NOTE | 2017-12-04 18:33 | HHI.PR ---
Subjective Remarks 52 YOWM with Crohn's dis, Cirrohosis, s/p TIPS, abd surgery,ARDS Breathing better Weaned to RA Feels much better NGT Removed Anxious to go home. Objective Vital Signs Vital Signs Date Time Temp Pulse Resp B/P (MAP) Pulse Ox O2 Delivery O2 Flow Rate FiO2 12/04/17 16:20 97.6 69 17 110/57 98 12/04/17 16:00 97.6 72 17 110/57 (74) 98 12/04/17 13:24 97.4 60 18 119/58 100 12/04/17 13:03 97.3 58 17 117/56 100 12/04/17 12:50 97.5 58 18 116/58 99 12/04/17 12:00 97.5 58 17 116/58 (77) 100 12/04/17 10:32 97.3 62 17 122/63 100 12/04/17 10:14 97.7 68 18 117/63 12/04/17 08:05 Room Air 12/04/17 08:00 97.5 51 19 118/59 (78) 98 12/04/17 04:00 98.1 80 18 121/57 (78) 100 12/04/17 00:00 97.9 82 18 120/62 (81) 100 12/03/17 20:00 70 12/03/17 20:00 97.2 81 18 115/59 (77) 100 I/O 12/03/17 12/03/17 12/03/17 12/04/17 12/04/17 12/04/17 07:00 15:00 23:00 07:00 15:00 23:00 Intake Total 907 ml 700 ml 862 ml 597 ml 576 ml 973 ml Output Total 200 ml 300 ml 500 ml Balance 707 ml 700 ml 562 ml 97 ml 576 ml 973 ml Intake Oral 360 ml 240 ml IV Total 907 ml 700 ml 502 ml 357 ml 257 ml Packed Cells 319 ml 973 ml Output Urine Total 300 ml 500 ml Gastric Drainage Total 200 ml # Voids 4 # Bowel Movements 2 2 3 Result Diagram: 12/04/17 0654 12/04/17 0654 Objective Remarks GENERAL: MBMNWM, mild sob SKIN: Warm and dry. HEAD: Normocephalic. EYES: No scleral icterus. No injection or drainage. NECK: Supple, trachea midline. No JVD or lymphadenopathy. CARDIOVASCULAR: Regular rate and rhythm without murmurs, gallops, or rubs. RESPIRATORY: Breath sounds equal bilaterally. No accessory muscle use. GASTROINTESTINAL: Abdomen soft, non-tender, nondistended. Abd wound dressed MUSCULOSKELETAL: No cyanosis, or edema. BACK: Nontender without obvious deformity. No CVA tenderness. A/P Assessment and Plan IMPRESSION: 1. Bilateral lung infiltrate with interstitial pattern and appearing fibrotic changes, possibly has acute respiratory distress syndrome and also possible underlying interstitial lung disease. 2. History of nicotine use. 3. Cirrhosis of the liver, status post transjugular intrahepatic portosystemic shunt procedure. 4. Crohn's disease. PLAN Stable on RA Keep sat 90-94% Cont Abx Monitor H/H EGD Scheduled for Zach Lazcano MD December 04, 2017 18:33
[2017-12-04 20:16] LABS: HEMATOCRIT 27.7 % (39.0-51.0); HEMOGLOBIN 9.2 GM/DL (13.0-17.0); MEAN CELL VOLUME 84.8 FL (80.0-100.0); MEAN CORPUSCULAR HEMOGLOBIN 28.3 PG (27.0-34.0); MEAN CORPUSCULAR HGB CONC 33.4 % (32.0-36.0); MEAN PLATELET VOLUME 9.6 FL (7.0-11.0); PLATELET COUNT 91 TH/MM3 (150-450); RED BLOOD COUNT 3.27 MIL/MM3 (4.50-5.90); RED CELL DISTRIBUTION WIDTH 16.6 % (11.6-17.2); WHITE BLOOD COUNT 32.7 TH/MM3 (4.0-11.0)
[2017-12-04] MEDS ORDERED: CHLORHEXIDINE GLUCONATE 2 % 1 PACK (2 CLOTHS) TOPICAL PRN (23:45)
[2017-12-04] MEDS ORDERED: SODIUM CHLORID 0.9% 500 ML IV PRN (23:45)
[2017-12-04] MEDS ORDERED: POVIDONE IODINE 5% (ANTISEPSIS KIT) 4 APPLICATIONS EACH NARE PRN (23:45)
[2017-12-04] MEDS ORDERED: LACTATED RINGER'S 1000 ML IV PRN (23:45)
[2017-12-05] VITALS (7 sets, daily range): BP systolic 108–133; BP diastolic 56–66; PULSE 54–79; RESP 17–18; TEMP 97.1–98; O2SAT 98–100
[2017-12-05] MEDS: POTASSIUM CHLORIDE INJ 40 MEQ in DEXTROSE 5% IN WATE 1000ML INJ 1,000 ML IV SCH ×6 (02:12→19:10)
[2017-12-05] MEDS: CHLORHEXIDINE GLUCONATE 2 % 1 PACK (2 CLOTHS) TOP SCH (02:12)
[2017-12-05] MEDS: ALPRAZolam 0.5 MG TAB PO PRN ×2 (02:13→12:49)
[2017-12-05] MEDS: OCTREOTIDE INJ 100 MCG/ML VIAL IV PUSH SCH (05:23)
[2017-12-05] MEDS: RIFAXIMIN 200 MG TAB PO SCH ×3 (05:23→21:18)
[2017-12-05 07:20] LABS: HEMATOCRIT 27.5 % (39.0-51.0); HEMOGLOBIN 9.2 GM/DL (13.0-17.0); MEAN CELL VOLUME 85.6 FL (80.0-100.0); MEAN CORPUSCULAR HEMOGLOBIN 28.8 PG (27.0-34.0); MEAN CORPUSCULAR HGB CONC 33.6 % (32.0-36.0); MEAN PLATELET VOLUME 9.9 FL (7.0-11.0); PLATELET COUNT 94 TH/MM3 (150-450); RED BLOOD COUNT 3.21 MIL/MM3 (4.50-5.90); RED CELL DISTRIBUTION WIDTH 17.6 % (11.6-17.2); WHITE BLOOD COUNT 27.2 TH/MM3 (4.0-11.0)
[2017-12-05 07:28] LABS: INTERNATIONAL NORMALIZED RATIO 1.5 RATIO; PROTHROMBIN TIME - PATIENT 15.1 SEC (9.8-11.6)
[2017-12-05 07:47] LABS: BICARBONATE 24.2 MEQ/L (21.0-32.0); CALCIUM 7.8 MG/DL (8.5-10.1); CREATININE 0.77 MG/DL (0.60-1.30); MAGNESIUM 1.5 MG/DL (1.5-2.5)
[2017-12-05] MEDS: predniSONE 20 MG TAB NG SCH ×2 (09:00→21:18)
[2017-12-05] MEDS: NYSTATIN SUSP 500,000 U/5 ML CUP SWISH-SWAL SCH ×4 (09:00→21:18)
[2017-12-05] MEDS: PANTOPRAZOLE SOD 40 MG DELAYED RELEASE TAB PO SCH ×2 (09:00→21:18)
[2017-12-05] MEDS: LACTULOSE SYRUP 20 GM/30 ML CUP NG SCH ×4 (09:00→21:19)
[2017-12-05] MEDS: SODIUM CHLORIDE 0.9% FLUSH 10 ML FLUSH IV FLUSH SCH ×2 (09:00→21:19)
[2017-12-05] MEDS ORDERED: DO NOT ADM ANY ANTICOAGULANT DRUGS PRN (11:21)
--- NOTE | 2017-12-05 11:21 | GIPROC ---
[facility] [address] [facility]. [facility], [address] EGD PROCEDURE REPORT EXAM DATE: 12/05/2017 PATIENT NAME: Goran Portillo MR #: [id number] BIRTHDATE: 1965 ATTENDING: Moises Chou MD ORDER #: [id number] CREPE LAMINATOR OPERATOR: Madelin George and Krysta Almaraz STATUS: inpatient INDICATIONS: The patient is a 52 yr old male here for an EGD due to hematemesis PROCEDURE PERFORMED: EGD w/ biopsy MEDICATIONS: None and Per Anesthesia. TOPICAL ANESTHETIC: CONSENT: The patient understands the risks and benefits of the procedure and understands that these risks include, but are not limited to: sedation, allergic reaction, infection, perforation and/or bleeding. Alternative means of evaluation and treatment include, among others: physical exam, x-rays, and/or surgical intervention. The patient elects to proceed with this endoscopic procedure. medical equipment was checked for proper function. Hand hygiene and appropriate measures for infection prevention was taken. After the risks, benefits and alternatives of the procedure were thoroughly explained, Informed consent was verified, confirmed and timeout was successfully executed by the treatment team. The patient was anesthetized with topical anesthesia and the Tabfoundryax [id number] endoscope was introduced through the mouth and advanced to the second portion of the duodenum. Retroflexed views revealed no abnormalities The gastroscope was then slowly withdrawn and removed. ESOPHAGUS: There was LA Class B esophagitis noted. STOMACH: There was erythematous moderate gastritis in the gastric antrum. A biopsy was performed using cold forceps. Sample sent for histology. DUODENUM: Two non-bleeding, shallow and clean-based ulcers ranging between 3-5 mm in size were found in the 1st part of the duodenum. ADVERSE EVENTS: There were no complications. IMPRESSIONS: 1. There was LA Class B esophagitis noted 2. There was erythematous gastritis in the gastric antrum; biopsy was performed 3. Two ulcers ranging between 3-5 mm in size were found in the 1st part of the duodenum 4. Retroflexed views revealed no abnormalities RECOMMENDATIONS: 1. Await biopsy results. Biopsy results will not be ready for 7-10 days. If you don't hear from us in two weeks, call our office for biopsy results. 2. Anti-reflux regimen 3. Continue PPI 4. Avoid NSAIDS PATIENT CONDITION: stable DISPOSITION: Inpatient REPEAT EXAM: Return 3 months EGD Moises Chou MD eSigned: Moises Chou MD 12/05/2017 11:20 AM cc: PATIENT NAME: Goran Portillo MR#: [id number]
[2017-12-05] MEDS ORDERED: ePHEDrine/NS 25 MG/5 ML SYRINGE ONE (11:29)
[2017-12-05] MEDS ORDERED: NALOXONE HCL 0.4 MG/ML AMP ONE (11:31)
[2017-12-05] MEDS ORDERED: PROPOFOL 200 MG/20 ML AMP IV ONE (12:00)
[2017-12-05] MEDS ORDERED: LIDOCAINE HCL 1% PF 5 ML SYRINGE OTHER ONE (12:00)
[2017-12-05] MEDS ORDERED: POTASSIUM CHLORIDE 10 MEQ CONTROLLED RELEASE TAB PO ONE (15:15)
--- NOTE | 2017-12-05 19:13 | HHI.PR ---
Subjective Remarks Patient denies any complaints. Denies fevers, chills. Hemoglobin stable. No reported melena or hematochezia. Objective Vitals Vital Signs Date Time Temp Pulse Resp B/P (MAP) Pulse Ox O2 Delivery O2 Flow Rate FiO2 12/05/17 16:00 97.5 74 18 108/56 (73) 99 12/05/17 12:20 97.1 54 18 133/59 (83) 100 12/05/17 12:00 97.4 66 14 124/55 (78) 98 Nasal Cannula 2 12/05/17 11:45 59 15 120/58 (78) 98 Nasal Cannula 2 12/05/17 11:30 61 10 91/52 (65) 99 Nasal Cannula 4 12/05/17 11:28 97.4 6 10 84/50 (61) 100 Nasal Cannula 4 12/05/17 09:50 97.5 60 16 119/63 (81) 97 12/05/17 08:00 74 12/05/17 08:00 97.6 68 18 112/63 (79) 99 12/05/17 04:08 60 12/05/17 00:00 98.0 64 17 110/59 (76) 98 12/04/17 23:17 71 12/04/17 20:00 98.1 68 17 134/65 (88) 98 I/O 12/04/17 12/04/17 12/04/17 12/05/17 12/05/17 12/05/17 07:00 15:00 23:00 07:00 15:00 23:00 Intake Total 597 ml 576 ml 1273 ml 1000 ml 150 ml 2200 ml Output Total 500 ml 500 ml 600 ml 50 ml 950 ml Balance 97 ml 576 ml 773 ml 400 ml 100 ml 1250 ml Intake Oral 240 ml 300 ml 0 ml 2200 ml IV Total 357 ml 257 ml 1000 ml Packed Cells 319 ml 973 ml Other 150 ml Output Urine Total 500 ml 500 ml 600 ml 50 ml 950 ml # Voids 4 # Bowel Movements 3 2 1 2 2 Result Diagram: 12/05/1752 12/05/17651 Objective Remarks General: Cachectic male in no acute distress. HEENT: NC, AT. Heart: Regular rate and rhythm. No murmur. Lungs: Clear to auscultation bilaterally. No wheezes, rales, or rhonchi. Breathing is nonlabored. Abdomen: Soft, nontender, nondistended. Binder in place. Extremities: No lower extremity edema. Psych: Calm. Neuro: Normal speech. No focal deficits noted. Procedures 11/10/17 central line placement 11/10/17 pigtail chest tube placement A/P Problem List: (1) History of resection of terminal ileum ICD Code: Z98.890 - Other specified postprocedural states; Z90.49 - Acquired absence of other specified parts of digestive tract Status: Acute (2) Tobacco abuse ICD Code: Z72.0 - Tobacco use Status: Acute (3) Wound dehiscence ICD Code: T81.30XA - Disruption of wound, unspecified, initial encounter; Z90.49 - Acquired absence of other specified parts of digestive tract Status: Acute (4) Crohns disease ICD Code: K50.90 - Crohn's disease, unspecified, without complications Status: Acute (5) Hypokalemia ICD Code: E87.6 - Hypokalemia Status: Acute (6) FEN Status: Acute (7) Leukocytosis ICD Code: D72.829 - Elevated white blood cell count, unspecified Status: Resolved Assessment and Plan Elevated LFTs/ Hepatic encephalopathy/ GIB Ammonia level markedly elevated. Liver US without acute process. Hepatitis profile negative. CT abdomen without acute pathology, gaseous distention noted. Has had reports of coffee ground emesis. GI consult appreciated. US revealed that TIPS is patent. Hgb 6.4 12/04. - sp two units prbcs 12/04. - follow CBC. - continue standing lactulose. - trend LFTs. - GI following. - PPI; octreotide. - ADAT. 12/05 sp EGD which showed esophagitis and gastritis. Hb stable at 9.2. Lactic acidosis/ Sepsis/ Marked leukocytosis Improved. ID consult appreciated. C. difficile PCR negative. HIV serology negative. - IVFs. - ID following. D/c antibiotics and monitor. - Follow cultures. 12/05 Dc IV fluids. Acute hypoxic respiratory failure/ ARDS Improved. Appreciate pulmonology recommendations. - d/c steroids. - oxygen and nebs as needed. - IS. - encourage ambulation. Status post colon resection with wound dehiscence The pt has Crohn's disease. Colorectal surgery consult appreciated. - Management per colorectal surgery. Anemia/ thrombocytopenia Pt with GIB as above. Transfusing 2 units 12/04. - follow CBC and transfuse as needed. Deconditioning The pt is very weak and confused. - Continue physical therapy, occupational therapy. Hypernatremia/ hypokalemia Resolved - sp Lasix. - D5W with potassium. - follow BMP. DVT prophylaxis: Lovenox Discharge Planning Dc in am. Problem Qualifiers (1) Crohns disease: Qualified Codes: K50.818 - Crohn's disease of both small and large intestine with other complication Billy Escalante MD December 05, 2017 19:13
--- NOTE | 2017-12-05 20:14 | HHI.PR ---
Subjective Remarks 52 YOWM with Crohn's dis, Cirrohosis, s/p TIPS, abd surgery,ARDS Breathing better Weaned to RA Feels much better Had EGD Objective Vital Signs Vital Signs Date Time Temp Pulse Resp B/P (MAP) Pulse Ox O2 Delivery O2 Flow Rate FiO2 12/05/17 16:00 97.5 74 18 108/56 (73) 99 12/05/17 12:20 97.1 54 18 133/59 (83) 100 12/05/17 12:00 97.4 66 14 124/55 (78) 98 Nasal Cannula 2 12/05/17 11:45 59 15 120/58 (78) 98 Nasal Cannula 2 12/05/17 11:30 61 10 91/52 (65) 99 Nasal Cannula 4 12/05/17 11:28 97.4 6 10 84/50 (61) 100 Nasal Cannula 4 12/05/17 09:50 97.5 60 16 119/63 (81) 97 12/05/17 08:00 74 12/05/17 08:00 97.6 68 18 112/63 (79) 99 12/05/17 04:08 60 12/05/17 00:00 98.0 64 17 110/59 (76) 98 12/04/17 23:17 71 I/O 12/04/17 12/04/17 12/04/17 12/05/17 12/05/17 12/05/17 07:00 15:00 23:00 07:00 15:00 23:00 Intake Total 597 ml 576 ml 1273 ml 1000 ml 150 ml 2200 ml Output Total 500 ml 500 ml 600 ml 50 ml 950 ml Balance 97 ml 576 ml 773 ml 400 ml 100 ml 1250 ml Intake Oral 240 ml 300 ml 0 ml 2200 ml IV Total 357 ml 257 ml 1000 ml Packed Cells 319 ml 973 ml Other 150 ml Output Urine Total 500 ml 500 ml 600 ml 50 ml 950 ml # Voids 4 # Bowel Movements 3 2 1 2 2 Result Diagram: 12/05/1752 12/05/17 06 Objective Remarks GENERAL: MBMNWM, mild sob SKIN: Warm and dry. HEAD: Normocephalic. EYES: No scleral icterus. No injection or drainage. NECK: Supple, trachea midline. No JVD or lymphadenopathy. CARDIOVASCULAR: Regular rate and rhythm without murmurs, gallops, or rubs. RESPIRATORY: Breath sounds equal bilaterally. No accessory muscle use. GASTROINTESTINAL: Abdomen soft, non-tender, nondistended. Abd wound dressed MUSCULOSKELETAL: No cyanosis, or edema. BACK: Nontender without obvious deformity. No CVA tenderness. A/P Assessment and Plan IMPRESSION: 1. Bilateral lung infiltrate with interstitial pattern and appearing fibrotic changes, possibly has acute respiratory distress syndrome and also possible underlying interstitial lung disease. 2. History of nicotine use. 3. Cirrhosis of the liver, status post transjugular intrahepatic portosystemic shunt procedure. 4. Crohn's disease. PLAN Stable on RA Keep sat 90-94% Cont Abx Monitor H/H Zach Mas MD December 05, 2017 20:14
--- NOTE | 2017-12-05 22:36 | HHI.PR ---
Subjective Remarks C/R Surg afebrile, VSS debi PO - +appetite UO not recorded +BM Objective - Vital Signs Date Time Temp Pulse Resp B/P (MAP) Pulse Ox O2 Delivery O2 Flow Rate FiO2 12/05/17 21:44 Nasal Cannula 2.00 12/05/17 16:00 97.5 74 18 108/56 (73) 99 Result Diagram: 12/05/17 0652 12/05/17 0652 Objective Remarks PE alert Abd - soft, open mid portion, clean - no granulation tissue, min tympany wound dressed A/P Discharge Planning Imp: SOB - stable wound clean - need to keep moist, abd binder ?rehab placement s/p GI bleed Ashwin Lane MD December 05, 2017 22:36
[2017-12-06] VITALS (7 sets, daily range): BP systolic 98–135; BP diastolic 52–69; PULSE 61–94; RESP 16–18; TEMP 97.4–97.9; O2SAT 95–99
[2017-12-06] MEDS: POTASSIUM CHLORIDE INJ 40 MEQ in DEXTROSE 5% IN WATE 1000ML INJ 1,000 ML IV SCH ×2 (01:35)
[2017-12-06] MEDS: CHLORHEXIDINE GLUCONATE 2 % 1 PACK (2 CLOTHS) TOP SCH (03:24)
[2017-12-06] MEDS: RIFAXIMIN 200 MG TAB PO SCH ×3 (04:35→20:00)
[2017-12-06] MEDS: ACETAMINOPHEN/HYDROcodone 325 MG/7.5 MG TAB PO PRN (04:35)
[2017-12-06] MEDS: NYSTATIN SUSP 500,000 U/5 ML CUP SWISH-SWAL SCH ×4 (09:04→20:00)
[2017-12-06] MEDS: predniSONE 20 MG TAB NG SCH ×2 (09:04→20:00)
[2017-12-06] MEDS: LACTULOSE SYRUP 20 GM/30 ML CUP NG SCH ×4 (09:04→20:00)
[2017-12-06] MEDS: PANTOPRAZOLE SOD 40 MG DELAYED RELEASE TAB PO SCH ×2 (09:04→20:00)
[2017-12-06] MEDS: SODIUM CHLORIDE 0.9% FLUSH 10 ML FLUSH IV FLUSH SCH ×2 (09:06→20:00)
--- NOTE | 2017-12-06 09:30 | HHI.GIFU ---
Subjective Remarks Pt sitting up in bed eating breakfast Reports loose but semi-formed stools Denies nausea, vomiting Some abdominal soreness, denies pain (Dinorah Gillespie) Objective Vitals I&O Vital Signs Date Time Temp Pulse Resp B/P (MAP) Pulse Ox O2 Delivery O2 Flow Rate FiO2 12/06/17 04:00 97.8 61 18 130/65 (86) 99 12/06/17 00:00 97.9 71 18 117/69 (85) 97 12/06/17 00:00 74 12/05/17 21:44 Nasal Cannula 2.00 12/05/17 20:04 79 12/05/17 20:00 97.6 74 18 129/66 (87) 100 12/05/17 16:00 97.5 74 18 108/56 (73) 99 12/05/17 12:20 97.1 54 18 133/59 (83) 100 12/05/17 12:00 97.4 66 14 124/55 (78) 98 Nasal Cannula 2 12/05/17 11:45 59 15 120/58 (78) 98 Nasal Cannula 2 12/05/17 11:30 61 10 91/52 (65) 99 Nasal Cannula 4 12/05/17 11:28 97.4 6 10 84/50 (61) 100 Nasal Cannula 4 12/05/17 09:50 97.5 60 16 119/63 (81) 97 I/O 12/05/17 12/05/17 12/05/17 12/06/17 12/06/17 12/06/17 07:00 15:00 23:00 07:00 15:00 23:00 Intake Total 1000 ml 150 ml 2200 ml 1020 ml Output Total 600 ml 50 ml 950 ml 600 ml Balance 400 ml 100 ml 1250 ml 420 ml Intake Oral 0 ml 2200 ml IV Total 1000 ml 1020 ml Other 150 ml Output Urine Total 600 ml 50 ml 950 ml 600 ml # Voids 4 3 # Bowel Movements 1 2 2 1 Laboratory Date/Time Source Procedure Growth Status 12/02/17 09:39 Blood Peripheral Aerobic Blood Culture - Preliminary NO GROWTH IN 3 DAYS Resulted 12/02/17 09:39 Blood Peripheral Anaerobic Blood Culture - Preliminary NO GROWTH IN 3 DAYS Resulted 11/10/17 02:30 Wound Abdomen Gram Stain - Final Complete 11/10/17 02:30 Wound Culture - Final Jeane Glabrata Complete Imaging Last Impressions Liver Ultrasound 12/04/17 0000 Signed Impressions: CONCLUSION: 1. TIPS is patent. 2. Minimal ascites. 3. Possible nonobstructing calculus lower pole right kidney measures 8 mm. Chest X-Ray 12/03/17 0000 Signed Impressions: CONCLUSION: 1. The previously noted mild bibasilar infiltrates have resolved. 2. No new or acute pulmonary infiltrates. Abdomen/Pelvis CT 12/01/17 0000 Signed Impressions: CONCLUSION: 1. The patient has had [address] scans since August 2017. All the scans have demonstrated varying degrees of small bowel wall thickening and gase ous distention of small and large bowel. On today's examination, the loops of s mall and large bowel are predominantly gas-distended. 2. NG tube in place. 3. Tips catheter, gallstone, and nonobstructing right renal stone, stable in a ppearance. Head CT 11/27/17 0000 Signed Impressions: Service Date/Time: Monday, November 27, 2017 12:57 - CONCLUSION: 1. Stable exam 2. No evidence of acute infarct, hemorrhage, mass or edema. Star Patterson MD Chest CT 11/20/17 0000 Signed Impressions: Service Date/Time: Monday, November 20, 2017 10:54 - CONCLUSION: Increasing coarse interstitial changes in both lungs with small bilateral pleural effusions. Interstitial pattern in the base is moving towards it honeycomb pattern. Hernando Rodrigez MD FACR Abdomen Ultrasound 11/11/17 0000 Signed Impressions: Service Date/Time: Saturday, November 11, 2017 14:19 - CONCLUSION: Trace ascites in the abdomen. Keegan Almaraz MD Physical Exam HEENT: Normocephalic; atraumatic (+) icterus CHEST: Even/unlabored CARDIAC: RRR ABDOMEN: Soft, flat, bowel sounds active, abdominal binder in place EXTREMITIES: No clubbing, cyanosis, or edema. LEGAL FILE CLERK: Alert and oriented (Dinorah Gillespie) Assessment and Plan Plan Assessment: - Anemia with reports of bloody output from NG tube over the weekend H/H currently 6.4/19.6- pt denies melena. EGD December 2016 --> Gastritis in the antrum. Hiatal hernia. Normal duodenum. Esophagus was normal. Tight cricopharyngeal muscle with extensive compression in the upper esophageal sphincter. Pathology (antrum) minimal chronic gastritis, negative for H Pylori. - History of Crohns with high grade obstruction of the terminal ileum S/P exploratory laparotomy with resection of the terminal ileum and ascending colon on 10/19/2017 S/P would dehiscence- procedure done by Dr. Lane CT abdomen and pelvis W IV contrast (12/01) Pt has had [address] scans since August, all scans have demonstrated varying degrees of small bowel wall thickening and gaseous distentions of the small and large bowel. Loops of small and large bowel are predominantly gas- distended. - Cirrhosis secondary to ETOH abuse S/P TIPS in June at [facility] liver vasculature/portal/hepatic vein (12/04) TIPS is patent, minimal ascites LFTs (12/04) AST-27 ALT-93 Alk phos-215 T bili-1.6 Elevated ammonia- on Xifaxan and Lactulose Thrombocytopenia (platelets-79) Coagulopathy (INR-1.7) Hypoalbuminemia (albumin-1.4) (12/06) Pt eating breakfast during exam, denies nausea and vomiting. Denies abdominal pain, some soreness. Loose but firm stools, Dr. Lane is following S/P EGD --> Class B esophagitis, erythematous gastritis in the gastric antrum, biopsy. Two ulcers ranging between 3-5 mm in size were found in the 1st part of the duodenum. Labs from today pending. Plan: - Protonix - Lactulose - Xifaxan - Monitor labs - Continue with current supportive care regarding cirrhosis - Dr. Lane following regarding Crohns management and wound dehiscence - GI will sign off, please reconsult as needed - Have pt follow up with GI after DC Pt has been seen and examined by myself and Dr. Burkett and this note is written on his behalf (Dinorah Gillespie) Physician Comments Seen and examined with ROMAIN, no bleeding, s/p egd yesterday. Await biopsies. GI fu upon dc. Will sign off. Thank you (Moises Chou MD) Dinorah Gillespie December 06, 2017 09:30 Moises Chou MD December 06, 2017 16:13
--- NOTE | 2017-12-06 11:12 | HHI.IDPN ---
Subjective Subjective Remarks Patient is a 53-year-old male, with history of Crohn's disease, had undergone terminal ileum and ascending colon resection October 19, 2017. He was admitted on November 09 because he was not feeling well, with generalized weakness, and abdominal pain. In the ED he was hypotensive and was noted to have wound dehiscence. He was in the ICU, and he was on pressors initially. He received a course of antibiotic including Zosyn, vancomycin, doxycycline, Flagyl, and Diflucan. He was transferred to the main ICU on November 10. During his hospitalization in the ICU, patient developed bilateral pulmonary infiltrates, which was felt to be due to ARDS. His hemodynamics improved as well as his pulmonary status. He was transferred to the hospitalist service from the self sealing fuel tank builder service. Patient's white count has always been in the 20,000. He was on Solu-Cortef from November 19, and then Solu-Medrol from November 20 - December 01. His white count jumped up to greater than 40,000 today, infectious disease consultation has been requested to evaluate the patient. Notes reviewed Temps ok Had endoscopy yesterday - has gastritis and 2 duodenal ulcers He is off Abx On RA Not SOB BP ok Hgb staying stable at 9 Antibiotics Current Medications Medications (Trade) Dose Ordered Sig/Vikki Route Start Time Stop Time Status Last Admin (NS Flush) 2 ml UNSCH PRN IV FLUSH 11/09/17 14:45 (NS Flush) 2 ml BID IV FLUSH 11/09/17 21:00 12/06/17 09:06 ([facility] [place] [facility] 1 [id number] XX 11/09/17 14:45 11/10/17 20:47 (Chlorhexidine 2% Cloth) Taper DAILY@04 TOP 11/10/17 04:00 11/06/18 03:59 11/12/17 04:00 (Chlorhexidine 2% Cloth) 3 pack UNSCH PRN TOP 11/09/17 14:45 ([facility] Inj) 1 mg UNSCH PRN SQ 11/09/17 20:45 ([place] 7.5-325 Mg) 1 tab Q4H PRN PO 11/09/17 23:45 11/24/17 13:58 (Mycostatin Liq) 5 ml QID SWISH-SWAL 11/10/17 13:00 12/06/17 09:04 (Albuterol Neb) 2.5 mg Q2HR NEB PRN NEB 11/10/17 21:30 11/23/17 02:56 (K-Lyte Cl Eff) 50 meq BID PO 11/23/17 21:00 Future Hold 11/29/17 09:19 (Lasix) 40 mg BID@09,18 PO 11/23/17 18:00 Future Hold 11/24/17 08:08 ([place] 7.5-325 Mg) 2 tab Q6H PRN PO 11/24/17 17:15 12/06/17 04:35 (Xanax) 0.5 mg DAILY PRN PO 11/29/17 12:45 12/05/17 12:49 (Lactulose Liq) 30 ml QID NG 12/01/17 18:00 12/06/17 09:04 (Xifaxan) 400 mg Q8HR PO 12/02/17 14:00 12/06/17 04:35 (Deltasone) 20 mg BID NG 12/02/17 14:45 12/06/17 09:04 (Protonix) 40 mg Q12HR PO 12/03/17 14:30 12/06/17 09:04 Lactated Ringer's 1,000 ml @ 30 mls/hr Q24H PRN IV 12/04/17 23:45 12/07/17 23:44 Sodium Chloride 500 ml @ 30 mls/hr [id number] PRN IV 12/04/17 23:45 12/07/17 23:44 (Betadine 5% Antisepsis Kit) 1 applic DIAMOND DIE DRILLER PRN EACH NARE 12/04/17 23:45 12/07/17 23:44 (Chlorhexidine 2% Cloth) 3 pack DIAMOND DIE DRILLER PRN TOPICAL 12/04/17 23:45 12/07/17 23:44 ([facility] [place] [facility]) ALL NURSING DEPARTME... UNSCH PRN .XX 12/05/17 11:21 12/06/17 11:20 Lines PIV with no evidence of infection Past Medical History Crohn Cirrhosis Gastritis Past Surgical History E lap with terminal ileum/ascending colon resection by Dr. Lane on 10/19/17 Allergies: Coded Allergies: tetanus toxoid, adsorbed (Verified Allergy, Severe, Nausea/Vomiting, ) Objective . Vital Signs Date Time Temp Pulse Resp B/P (MAP) Pulse Ox O2 Delivery O2 Flow Rate FiO2 12/06/17 08:45 Room Air 12/06/17 08:00 97.4 67 16 108/60 (76) 98 12/06/17 04:00 97.8 61 18 130/65 (86) 99 12/06/17 00:00 97.9 71 18 117/69 (85) 97 12/06/17 00:00 74 12/05/17 21:44 Nasal Cannula 2.00 12/05/17 20:04 79 12/05/17 20:00 97.6 74 18 129/66 (87) 100 12/05/17 16:00 97.5 74 18 108/56 (73) 99 12/05/17 12:20 97.1 54 18 133/59 (83) 100 12/05/17 12:00 97.4 66 14 124/55 (78) 98 Nasal Cannula 2 12/05/17 11:45 59 15 120/58 (78) 98 Nasal Cannula 2 12/05/17 11:30 61 10 91/52 (65) 99 Nasal Cannula 4 12/05/17 11:28 97.4 6 10 84/50 (61) 100 Nasal Cannula 4 . Laboratory Tests Test 12/04/17 19:48 12/05/17 06:52 White Blood Count 32.7 TH/MM3 27.2 TH/MM3 Red Blood Count 3.27 MIL/MM3 3.21 MIL/MM3 Hemoglobin 9.2 GM/DL 9.2 GM/DL Hematocrit 27.7 % 27.5 % Mean Corpuscular Volume 84.8 FL 85.6 FL Mean Corpuscular Hemoglobin 28.3 PG 28.8 PG Mean Corpuscular Hemoglobin Concent 33.4 % 33.6 % Red Cell Distribution Width 16.6 % 17.6 % Platelet Count 91 TH/MM3 94 TH/MM3 Mean Platelet Volume 9.6 FL 9.9 FL Laboratory Tests Test 12/05/17 06:52 Blood Urea Nitrogen 11 MG/DL Creatinine 0.77 MG/DL Random Glucose 129 MG/DL Calcium Level 7.8 MG/DL Magnesium Level 1.5 MG/DL Sodium Level 136 MEQ/L Potassium Level 3.4 MEQ/L Chloride Level 104 MEQ/L Carbon Dioxide Level 24.2 MEQ/L Anion Gap 8 MEQ/L Estimat Glomerular Filtration Rate 106 ML/MIN Imaging RADIOLOGY STUDIES/FILMS REVIEWED Last Impressions Abdomen/Pelvis CT 12/01/17 0000 Signed Impressions: CONCLUSION: 1. The patient has had [address] scans since August 2017. All the scans have demonstrated varying degrees of small bowel wall thickening and gase ous distention of small and large bowel. On today's examination, the loops of s mall and large bowel are predominantly gas-distended. 2. NG tube in place. 3. Tips catheter, gallstone, and nonobstructing right renal stone, stable in a ppearance. Liver Ultrasound 11/28/17 0000 Signed Impressions: CONCLUSION: 1. Gallstone in the gallbladder. No biliary tract obstruction. 2. Diffuse fatty infiltration of the liver. No significant change compared to the prior study. 3. Nonobstructing 1 cm stone in the lower pole of the right kidney. Head CT 11/27/17 0000 Signed Impressions: Service Date/Time: Monday, November 27, 2017 12:57 - CONCLUSION: 1. Stable exam 2. No evidence of acute infarct, hemorrhage, mass or edema. Star Patterson MD Chest X-Ray 11/24/17 0600 Signed Impressions: Service Date/Time: Friday, November 24, 2017 03:30 - CONCLUSION: Considerable improvement but residual bilateral infiltrates. Lalo Zavala Jr., MD Chest CT 11/20/17 0000 Signed Impressions: Service Date/Time: Monday, November 20, 2017 10:54 - CONCLUSION: Increasing coarse interstitial changes in both lungs with small bilateral pleural effusions. Interstitial pattern in the base is moving towards it honeycomb pattern. Hernando Rodrigez MD FACR Abdomen Ultrasound 11/11/17 0000 Signed Impressions: Service Date/Time: Saturday, November 11, 2017 14:19 - CONCLUSION: Trace ascites in the abdomen. Keegan Almaraz MD Physical Exam GENERAL: awake and alert, NAD, confused. SKIN: Warm and dry. Has scattered ecchymosis in both upper extremities. No generalized rash noted. HEAD: Atraumatic. Normocephalic. No temporal wasting, or tenderness. EYES: [place] conjunctiva. No petechia or hemorrhage. Pupils equal, round and reactive to light. Extraocular movements full and intact. No scleral icterus. No injection or drainage. EARS, NOSE AND THROAT: Nose without bleeding or purulent nasal discharge. Has an NG tube in place. Has dry oral mucosa. NECK: Trachea midline. Supple and not tender, no meningeal signs CARDIOVASCULAR: Regular rate and rhythm. No murmurs, rubs or gallops heard RESPIRATORY: Clear to auscultation. Breath sounds equal bilaterally. No rales , wheezing or rhonchi. Decreased breath sounds at the bases. ABDOMEN: Soft, non-tender, nondistended. Bowel sounds present and normoactive. No guarding. No rebound. No organomegaly. Has dressing on his abdominal wound EXTREMITIES: No clubbing, cyanosis, or edema. No joint effusion, has good ROM. No calf tenderness. Well perfused and warm. NEUROLOGICAL: Non-focal. PSYCHIATRIC: Calm and cooperative LINE: No evidence of infection Assessment & Plan Remarks IMPRESSION Worsening leukocytosis, etiology? better - likely reactive due to blood loss - no new infection identified - no line - no guerin - CT A/P no abscess - wound looks clean - has had borderline low BP, ?new sepsis, ?relative adrenal insufficiency S/P Abx for sepsis S/P ARDS, last CXR better, and oxygenating better Cirrhosis Cachexia RECOMMENDATION Seems clinically stable from ID standpoint He is not on any Abx I will see prn Please call if with any new ID issue or question Jaky Savage MD December 06, 2017 11:12
[2017-12-06 12:26] LABS: AUTOMATED NEUTROPHIL # 25.2 TH/MM3 (1.8-7.7); BASOPHIL % 0.1 % (0.0-2.0); EOSINOPHIL # 0.1 TH/MM3 (0-0.4); EOSINOPHIL % 0.2 % (0.0-4.0); HEMATOCRIT 28.7 % (39.0-51.0); HEMOGLOBIN 9.5 GM/DL (13.0-17.0); LYMPH % 4.1 % (9.0-44.0); LYMPHOCYTE # 1.1 TH/MM3 (1.0-4.8); MEAN CELL VOLUME 85.7 FL (80.0-100.0); MEAN CORPUSCULAR HEMOGLOBIN 28.2 PG (27.0-34.0); MEAN CORPUSCULAR HGB CONC 32.9 % (32.0-36.0); MONOCYTE # 1.1 TH/MM3 (0-0.9); NEUT % 91.6 % (16.0-70.0); PLATELET COUNT 119 TH/MM3 (150-450); RED BLOOD COUNT 3.35 MIL/MM3 (4.50-5.90); WHITE BLOOD COUNT 27.6 TH/MM3 (4.0-11.0)
[2017-12-06] MEDS ORDERED: XIFA200T4 PO (15:59)
[2017-12-06] MEDS ORDERED: HYDR-3288 PO (15:59)
[2017-12-06] MEDS ORDERED: PANT40TA3 PO (15:59)
[2017-12-06] MEDS ORDERED: PRED5PAK PO (15:59)
--- NOTE | 2017-12-06 16:01 | HHI.FF ---
Face to Face Verification Diagnosis: (1) Tobacco abuse (2) Leukocytosis (3) FEN (4) Hypokalemia (5) Abdominal pain (6) Wound dehiscence (7) Hypotension (8) Sepsis (9) History of resection of terminal ileum (10) Exacerbation of Crohn's disease Physical Therapy Order: Improve ambulation, Strength and gait training Home Health Nursing Order: Wound care and dressing changes Nursing assessment with vital signs I have seen patient Goran Gallegos Jr Lindsey on 12/06/17. My clinical findings support the need for the requested home health care services because: Limited ability to care for self Need for psychosocial assistance High risk of falls Infection w/ risk of complications I certify that my clinical findings support that this patient is homebound because: Unsteady gait/balance Unsafe to leave home unassisted Unable to use public transportation Billy Escalante MD December 06, 2017 16:01
--- NOTE | 2017-12-06 16:08 | HHI.DS ---
Discharge Summary Admission Date November 09, 2017 at 14:36 Discharge Date: December 06, 2017 Admitting Diagnosis septic shock, s/p terminal ileum resection (1) History of resection of terminal ileum ICD Code: Z98.890 - Other specified postprocedural states; Z90.49 - Acquired absence of other specified parts of digestive tract Status: Chronic (2) Tobacco abuse ICD Code: Z72.0 - Tobacco use Status: Chronic (3) Wound dehiscence ICD Code: T81.30XA - Disruption of wound, unspecified, initial encounter; Z90.49 - Acquired absence of other specified parts of digestive tract Status: Chronic (4) Crohns disease ICD Code: K50.90 - Crohn's disease, unspecified, without complications Status: Chronic (5) Hypokalemia ICD Code: E87.6 - Hypokalemia Status: Resolved (6) FEN Status: Acute (7) Leukocytosis ICD Code: D72.829 - Elevated white blood cell count, unspecified Status: Resolved Procedures 11/10/17 central line placement 11/10/17 pigtail chest tube placement Brief History - From Admission HPI 52-year-old male with a medical history significant for Crohn's disease who underwent E lap with terminal ileum/ascending colon resection by Dr. Lane on . Patient was subsequently discharged on 10/31. He presented back to the ER on 11/04 with abdominal pain underwent labs and CAT scan and was subsequently discharged from the ER and followed up with Dr. Lane. He did develop some wound dehiscence and the upper part of his incision site and some ha were removed by Dr. Lane. Patient presented back to the ER on 11/09 as he was not feeling well with generalized weakness and abdominal pain and was noted to be hypotensive in the ER with a leukocytosis. He received 2 L normal saline bolus and was given empiric Zosyn for antibiotic coverage. Dr. Pryor spoke with Dr. Lane. Patient was accepted for admission by critical care medicine service and is being admitted to the ICU. When I evaluated the patient he was laying in the ER stretcher with systolic blood pressure in the 90s having received 2 L normal saline bolus. He was complaining of pain all over at the time. He denied any shortness of breath nausea or vomiting currently. He denied any melena or rectal bleeding. Denies any fever or chills. He did have slight dehiscence of his upper abdominal incision site with foul smell but minimal discharge. History was obtained by reviewing records and discussion with the ER physician. Patient is not a very good historian. He also reportedly has a history of cirrhosis and has had a TIPS procedure in June 2017. He has been on diuretics at home. History [facility] Past Medical History Narrative Medical List of his past medical, surgical, social and family history reviewed from the nursing note. Hx Anticoagulant Therapy: No Arthritis: Yes Asthma: Yes Autoimmune Disease: No Blood Disorders: No Anxiety: No Depression: Yes Heart Rhythm Problems: Yes Cancer: No Cardiovascular Problems: Yes High Cholesterol: No Chest Pain: No Congestive Heart Failure: No COPD: Yes Cerebrovascular Accident: No Diabetes: No Diminished Hearing: No Endocrine: No Gastrointestinal Disorders: Yes (CROHNS, gastritis, ascites) GERD: Yes Genitourinary: Yes Headaches: Yes Hiatal Hernia: Yes Hypertension: Yes Immune Disorder: No Inguinal Hernia: Yes Implanted Vascular Access Dvce: No Kidney Stones: Yes Musculoskeletal: Yes (BILAT KNEES.) Neurologic: Yes Psychiatric: Yes Reproductive: No Respiratory: Yes (COPD) Immunizations Current: Yes Migraines: No Pancreatitis: Yes Renal Failure: No Seizures: No Sleep Apnea: No Thyroid Disease: No Ulcer: No Past Surgical History Abdominal Surgery: Yes (COLON RESECTION DUE TO CROHNS) Arteriovenous Shunt: No Cardiac Surgery: No Ear Surgery: No Endocrine Surgery: No Eye Surgery: No Genitourinary Surgery: No Gynecologic Surgery: No Insulin Pump: No Joint Replacement: No Neurologic Surgery: No Oral Surgery: No Pacemaker: No Thoracic Surgery: No Tonsillectomy: Yes Other Surgery: Yes (CROHN'S DISEASE) Social History Alcohol Use: No Tobacco Use: Yes (1/2 PPD) Substance Use: No Allergies-Medications Allergies-Medications (Allergen,Severity, Reaction): Coded Allergies: tetanus toxoid, adsorbed (Verified Allergy, Severe, Nausea/Vomiting, ) Comments List of his allergies reviewed from the nursing note. Reported Meds & Prescriptions Reported Meds & Active Scripts Active Levaquin (Levofloxacin) 750 Mg Tablet 750 Mg PO DAILY 7 Days Furosemide 40 Mg Tab 40 Mg PO BID Brandon (Hydrocodone-Acetaminophen) 7.5-325 mg Tab 1 Tab PO Q4H PRN 3 Days Reported Xanax (Alprazolam) 0.5 Mg Tab 0.5 Mg PO DAILY PRN Narrative Medication List of his home medications reviewed from the nursing note. ROS Review of Systems ROS Limitations: Poor Historian Except as stated in HPI: all other systems reviewed are Neg CBC/BMP: 12/06/17 1139 12/05/17 0652 Significant Findings Laboratory Tests Test 12/04/17 06:54 12/04/17 08:13 12/04/17 19:48 12/05/17 06:52 White Blood Count 21.2 TH/MM3 (4.0-11.0) 32.7 TH/MM3 (4.0-11.0) 27.2 TH/MM3 (4.0-11.0) Red Blood Count 2.24 MIL/MM3 (4.50-5.90) 3.27 MIL/MM3 (4.50-5.90) 3.21 MIL/MM3 (4.50-5.90) Hemoglobin 6.4 GM/DL (13.0-17.0) 9.2 GM/DL (13.0-17.0) 9.2 GM/DL (13.0-17.0) Hematocrit 19.6 % (39.0-51.0) 27.7 % (39.0-51.0) 27.5 % (39.0-51.0) Red Cell Distribution Width 19.0 % (11.6-17.2) 17.6 % (11.6-17.2) Platelet Count 79 TH/MM3 (150-450) 91 TH/MM3 (150-450) 94 TH/MM3 (150-450) Random Glucose 131 MG/DL (74-106) 129 MG/DL (74-106) Total Protein 3.5 GM/DL (6.4-8.2) Albumin 1.4 GM/DL (3.4-5.0) Calcium Level 7.1 MG/DL (8.5-10.1) 7.8 MG/DL (8.5-10.1) Phosphorus Level 2.2 MG/DL (2.5-4.9) Alkaline Phosphatase 215 U/L (45-117) Alanine Aminotransferase (ALT/SGPT) 93 U/L (12-78) Total Bilirubin 1.6 MG/DL (0.2-1.0) Direct Bilirubin 0.9 MG/DL (0.0-0.2) Potassium Level 3.3 MEQ/L (3.5-5.1) 3.4 MEQ/L (3.5-5.1) Estimat Glomerular Filtration Rate 86 ML/MIN (>89) Vancomycin Level Trough 13.2 MCG/ML (5.0-10.0) Prothrombin Time 15.1 SEC (9.8-11.6) Test 12/06/17 11:39 White Blood Count 27.6 TH/MM3 (4.0-11.0) Red Blood Count 3.35 MIL/MM3 (4.50-5.90) Hemoglobin 9.5 GM/DL (13.0-17.0) Hematocrit 28.7 % (39.0-51.0) Red Cell Distribution Width 18.0 % (11.6-17.2) Platelet Count 119 TH/MM3 (150-450) Neutrophils (%) (Auto) 91.6 % (16.0-70.0) Lymphocytes (%) (Auto) 4.1 % (9.0-44.0) Neutrophils # (Auto) 25.2 TH/MM3 (1.8-7.7) Monocytes # (Auto) 1.1 TH/MM3 (0-0.9) Imaging Last Impressions Liver Ultrasound 12/04/17 0000 Signed Impressions: CONCLUSION: 1. TIPS is patent. 2. Minimal ascites. 3. Possible nonobstructing calculus lower pole right kidney measures 8 mm. Chest X-Ray 12/03/17 0000 Signed Impressions: CONCLUSION: 1. The previously noted mild bibasilar infiltrates have resolved. 2. No new or acute pulmonary infiltrates. Abdomen/Pelvis CT 12/01/17 0000 Signed Impressions: CONCLUSION: 1. The patient has had [address] scans since August 2017. All the scans have demonstrated varying degrees of small bowel wall thickening and gase ous distention of small and large bowel. On today's examination, the loops of s mall and large bowel are predominantly gas-distended. 2. NG tube in place. 3. Tips catheter, gallstone, and nonobstructing right renal stone, stable in a ppearance. Head CT 11/27/17 0000 Signed Impressions: Service Date/Time: Monday, November 27, 2017 12:57 - CONCLUSION: 1. Stable exam 2. No evidence of acute infarct, hemorrhage, mass or edema. Star Patterson MD Chest CT 11/20/17 0000 Signed Impressions: Service Date/Time: Monday, November 20, 2017 10:54 - CONCLUSION: Increasing coarse interstitial changes in both lungs with small bilateral pleural effusions. Interstitial pattern in the base is moving towards it honeycomb pattern. Hernando Rodrigez MD FACR Abdomen Ultrasound 11/11/17 0000 Signed Impressions: Service Date/Time: Saturday, November 11, 2017 14:19 - CONCLUSION: Trace ascites in the abdomen. Keegan Almaraz MD PE at Discharge General: Cachectic male in no acute distress. HEENT: NC, AT. Heart: Regular rate and rhythm. No murmur. Lungs: Clear to auscultation bilaterally. No wheezes, rales, or rhonchi. Breathing is nonlabored. Abdomen: Soft, nontender, nondistended. Binder in place. Extremities: No lower extremity edema. Psych: Calm. Neuro: Normal speech. No focal deficits noted. Pt update on day of discharge No major overnight events. Patient states he has good appetite and is eager to go home. Denies chest pain or shortness of breath, denies fevers or chills. Hospital Course Patient was admitted and found to have liver cirrhosis, elevated liver function test hepatic encephalopathy and GI bleed. Ammonia levels were markedly elevated liver ultrasound was obtained without acute process. Hepatitis profile negative. CT of the abdomen without acute pathology or with gaseous distention noted. Patient has had reports of coffee-ground emesis GI consulted. Ultrasound revealed that TIPS is patent. The patient was confused 2 units of packed red blood cells, treated for with lactulose, PPI and octreotide. EGD showed esophagitis and gastritis hemoglobin remained stable after transfusion at 9.2. Patient had sepsis, lactic acidosis, leukocytosis for which ID was consulted. C. difficile PCR was tested and negative. HIV serology negative. Lactic acidosis resolved prior to discharge. Patient is well had acute respiratory failure with ARDS which improved. Pulmonology was consulted and this was treated with steroids, oxygen as needed, duo nebs and incentive spirometry. The patient status post resection with wound dehiscence. Patient has Crohn's disease. Colorectal surgery consulted and followed the patient. Management of this problem was entirely supervised by colorectal surgery. Blood count showed anemia from cytopenia. Anemia likely acute posthemorrhagic anemia due to GI bleed. The patient was transfused. Patient was found to be deconditioned weak and confused. Physical therapy was consulted as well as occupational therapy. Part of the patient's encephalopathy was likely due to hypernatremia which was treated with D5 water with potassium and hypokalemia. 12/06 the patient has been cleared to be discharged by infectious disease, gastroenterology and rectal surgery. Upon discussion of the case with Dr. Lane he felt that the patient will benefit from rehab placement, however the patient does not have any financial needs or insurance to do it. I will discharge the patient home with home health physical therapy and nursing in a.m. discussed with case picker. Home health starting the patient this next Monday so we will discharge in a.m. The coordination of wound care could be arranged. DVT prophylaxis was provided with SCDs and Lovenox. Pt Condition on Discharge: Stable Discharge Disposition: Disch w/ Home Health Serv Discharge Time: > 30 minutes Discharge Instructions DIET: Follow Instructions for: Heart Healthy Diet Activities you can perform: See Additionl Instruction Other Activity Instructions: as per PT oob with assistance Follow up Referrals: Gastroenterology - 4 Weeks PCP Follow-up New Medications: Prednisone (21) 5 mg tab Dose Pack (Prednisone (21) 5 mg tab Dose Pack) 5 Mg Dspk 5 MG PO DIRECTED for Inflammation, #1 DSPK 0 Refills Pantoprazole (Pantoprazole) 40 Mg Tab 40 MG PO Q12HR for gastritis, #62 TAB Rifaximin (Xifaxan) 200 Mg Tab 400 MG PO Q8HR for liver disease, #93 TAB Continued Medications: Alprazolam (Xanax) 0.5 Mg Tab 0.5 MG PO DAILY PRN for ANXIETY, TAB 0 Refills Furosemide (Furosemide) 40 Mg Tab 40 MG PO BID for Diuretic, #60 TAB 0 Refills Hydrocodone-Acetaminophen (Brandon) 7.5-325 mg Tab 1 TAB PO Q4H PRN for PAIN for 3 Days, #18 TAB 0 Refills (This prescription has been renewed) Discontinued Medications: Levofloxacin (Levaquin) 750 Mg Tablet 750 MG PO DAILY for Infection for 7 Days, #7 TAB 0 Refills Billy Escalante MD December 06, 2017 16:08
[2017-12-06] MEDS ORDERED: ALPR.5 PO (16:23)
[2017-12-06] MEDS ORDERED: FURO40TA PO (16:23)
--- NOTE | 2017-12-06 16:31 | HHI.PR ---
Subjective Remarks No major overnight events. The patient states he has good appetite, eager to go home. Denies chest pain or shortness of breath. Denies fevers or chills. Abdominal pain is controlled. Objective Vitals Vital Signs Date Time Temp Pulse Resp B/P (MAP) Pulse Ox O2 Delivery O2 Flow Rate FiO2 12/06/17 12:00 97.8 85 17 111/61 (78) 99 12/06/17 12:00 97.8 86 17 111/61 (78) 99 12/06/17 11:14 98 12/06/17 08:45 Room Air 12/06/17 08:00 97.4 67 16 108/60 (76) 98 12/06/17 04:00 97.8 61 18 130/65 (86) 99 12/06/17 00:00 97.9 71 18 117/69 (85) 97 12/06/17 00:00 74 12/05/17 21:44 Nasal Cannula 2.00 12/05/17 20:04 79 12/05/17 20:00 97.6 74 18 129/66 (87) 100 I/O 12/05/17 12/05/17 12/05/17 12/06/17 12/06/17 12/06/17 07:00 15:00 23:00 07:00 15:00 23:00 Intake Total 1000 ml 150 ml 2200 ml 1020 ml Output Total 600 ml 50 ml 950 ml 600 ml Balance 400 ml 100 ml 1250 ml 420 ml Intake Oral 0 ml 2200 ml IV Total 1000 ml 1020 ml Other 150 ml Output Urine Total 600 ml 50 ml 950 ml 600 ml # Voids 4 3 # Bowel Movements 1 2 2 1 Result Diagram: 12/06/17 1139 12/05/17 0652 Objective Remarks General: Cachectic male in no acute distress. HEENT: NC, AT. Heart: Regular rate and rhythm. No murmur. Lungs: Clear to auscultation bilaterally. No wheezes, rales, or rhonchi. Breathing is nonlabored. Abdomen: Soft, nontender, nondistended. Binder in place. Extremities: No lower extremity edema. Psych: Calm. Neuro: Normal speech. No focal deficits noted. Procedures 11/10/17 central line placement 11/10/17 pigtail chest tube placement A/P Problem List: (1) History of resection of terminal ileum ICD Code: Z98.890 - Other specified postprocedural states; Z90.49 - Acquired absence of other specified parts of digestive tract Status: Chronic (2) Tobacco abuse ICD Code: Z72.0 - Tobacco use Status: Chronic (3) Wound dehiscence ICD Code: T81.30XA - Disruption of wound, unspecified, initial encounter; Z90.49 - Acquired absence of other specified parts of digestive tract Status: Chronic (4) Crohns disease ICD Code: K50.90 - Crohn's disease, unspecified, without complications Status: Chronic (5) Hypokalemia ICD Code: E87.6 - Hypokalemia Status: Resolved (6) Leukocytosis ICD Code: D72.829 - Elevated white blood cell count, unspecified Status: Resolved Assessment and Plan Liver cirrhosis./ elevated LFTs/ Hepatic encephalopathy/ GIB Ammonia level markedly elevated. Liver US without acute process. Hepatitis profile negative. CT abdomen without acute pathology, gaseous distention noted. Has had reports of coffee ground emesis. GI consult appreciated. US revealed that TIPS is patent. Hgb 6.4 12/04. - sp two units prbcs 12/04. - follow CBC. - continue standing lactulose. - trend LFTs. - GI following. - PPI; octreotide. - ADAT. 12/05 sp EGD which showed esophagitis and gastritis. Hb stable at 9.2. Lactic acidosis/ Sepsis/ Marked leukocytosis Improved. ID consult appreciated. C. difficile PCR negative. HIV serology negative. - IVFs. - ID following. D/c antibiotics and monitor. - Follow cultures. 12/05 Dc IV fluids. Acute hypoxic respiratory failure/ ARDS Improved. Appreciate pulmonology recommendations. - d/c steroids. - oxygen and nebs as needed. - IS. - encourage ambulation. Status post colon resection with wound dehiscence The pt has Crohn's disease. Colorectal surgery consult appreciated. - Management per colorectal surgery. Anemia/ thrombocytopenia Pt with GIB as above. Transfusing 2 units 12/04. - follow CBC and transfuse as needed. Deconditioning The pt is very weak and confused. - Continue physical therapy, occupational therapy. Hypernatremia/ hypokalemia Resolved - sp Lasix. - D5W with potassium. - follow BMP. 12/06 the patient has been cleared to be discharged by infectious disease, gastroenterology and rectal surgery. Upon discussion of the case with Dr. Lane he felt that the patient will benefit from rehab placement, however the patient does not have any financial needs or insurance to do it. I will discharge the patient home with home health physical therapy and nursing in a.m. discussed with manager rn case. Home health starting the patient this next Monday so we will discharge in a.m. The coordination of wound care could be arranged. DVT prophylaxis: Lovenox Discharge Planning Dc in am. Problem Qualifiers (1) Crohns disease: Qualified Codes: K50.818 - Crohn's disease of both small and large intestine with other complication Billy Escalante MD December 06, 2017 16:31
--- NOTE | 2017-12-06 20:37 | HHI.PR ---
Subjective Remarks 52 YOWM with Crohn's dis, Cirrohosis, s/p TIPS, abd surgery,ARDS Breathing better Weaned to RA Feels much better Had EGD Anxious to go home Objective Vital Signs Vital Signs Date Time Temp Pulse Resp B/P (MAP) Pulse Ox O2 Delivery O2 Flow Rate FiO2 12/06/17 20:09 Room Air 12/06/17 16:00 97.5 93 18 111/58 (75) 99 12/06/17 12:00 97.8 85 17 111/61 (78) 99 12/06/17 12:00 97.8 86 17 111/61 (78) 99 12/06/17 11:14 98 12/06/17 08:45 Room Air 12/06/17 08:00 97.4 67 16 108/60 (76) 98 12/06/17 04:00 97.8 61 18 130/65 (86) 99 12/06/17 00:00 97.9 71 18 117/69 (85) 97 12/06/17 00:00 74 12/05/17 21:44 Nasal Cannula 2.00 I/O 12/05/17 12/05/17 12/05/17 12/06/17 12/06/17 12/06/17 07:00 15:00 23:00 07:00 15:00 23:00 Intake Total 1000 ml 150 ml 2200 ml 1020 ml 660 ml Output Total 600 ml 50 ml 950 ml 600 ml 550 ml Balance 400 ml 100 ml 1250 ml 420 ml 110 ml Intake Oral 0 ml 2200 ml 660 ml IV Total 1000 ml 1020 ml Other 150 ml Output Urine Total 600 ml 50 ml 950 ml 600 ml 550 ml # Voids 4 3 # Bowel Movements 1 2 2 1 2 Result Diagram: 12/06/17 1139 12/05/17 0652 Objective Remarks GENERAL: MBMNWM, mild sob SKIN: Warm and dry. HEAD: Normocephalic. EYES: No scleral icterus. No injection or drainage. NECK: Supple, trachea midline. No JVD or lymphadenopathy. CARDIOVASCULAR: Regular rate and rhythm without murmurs, gallops, or rubs. RESPIRATORY: Breath sounds equal bilaterally. No accessory muscle use. GASTROINTESTINAL: Abdomen soft, non-tender, nondistended. Abd wound dressed MUSCULOSKELETAL: No cyanosis, or edema. BACK: Nontender without obvious deformity. No CVA tenderness. A/P Assessment and Plan IMPRESSION: 1. Bilateral lung infiltrate with interstitial pattern and appearing fibrotic changes, possibly has acute respiratory distress syndrome and also possible underlying interstitial lung disease. 2. History of nicotine use. 3. Cirrhosis of the liver, status post transjugular intrahepatic portosystemic shunt procedure. 4. Crohn's disease. PLAN Stable on RA Keep sat 90-94% Cont Abx Monitor H/H DC plans underway. Zach Mas MD December 06, 2017 20:37
[2017-12-07] VITALS: BP 106/59; PULSE 90; RESP 16; TEMP 98.1; O2SAT 98
[2017-12-07 00:14] VITALS: PULSE 79
[2017-12-07] MEDS: CHLORHEXIDINE GLUCONATE 2 % 1 PACK (2 CLOTHS) TOP SCH (03:50)
[2017-12-07 04:00] VITALS: BP 107/56; PULSE 83; RESP 16; TEMP 98.2; O2SAT 97
[2017-12-07] MEDS: RIFAXIMIN 200 MG TAB PO SCH (04:19)
[2017-12-07 08:00] VITALS: BP 109/57; PULSE 74; RESP 16; TEMP 97.5; O2SAT 98
[2017-12-07] MEDS: SODIUM CHLORIDE 0.9% FLUSH 10 ML FLUSH IV FLUSH SCH (09:33)
[2017-12-07] MEDS: LACTULOSE SYRUP 20 GM/30 ML CUP NG SCH (09:34)
[2017-12-07] MEDS: PANTOPRAZOLE SOD 40 MG DELAYED RELEASE TAB PO SCH (09:35)
[2017-12-07] MEDS: predniSONE 20 MG TAB NG SCH (09:35)
[2017-12-07] MEDS: NYSTATIN SUSP 500,000 U/5 ML CUP SWISH-SWAL SCH (09:35)
== END 2017-12-07 11:55 | disposition home health service (06) | DRG 871 ==
LOC: PHED 11:58 → PHEDA 14:36 → PHICU 17:10 → N03A 11-10 18:30 → N07B 11-14 00:13 → N03B 11-14 10:46 → N07A 11-25 17:58
PROVIDERS: ADMIT Hospitalist; ATTEND Hospitalist
PROC: 02HV33Z Insertion of Infusion Device into Superior Vena Cava, Percutaneous Approach (ICD-10-PCS; principal; 2017-11-10)
PROC: 0W9930Z Drainage of Right Pleural Cavity with Drainage Device, Percutaneous Approach (ICD-10-PCS; 2017-11-10)
PROC: 30233N1 Transfusion of Nonautologous Red Blood Cells into Peripheral Vein, Percutaneous Approach (ICD-10-PCS; 2017-11-11)
PROC: 0DB78ZX Excision of Stomach, Pylorus, Via Natural or Artificial Opening Endoscopic, Diagnostic (ICD-10-PCS; 2017-12-05)
DX: B37.7 Candidal sepsis (principal); R65.21 Severe sepsis with septic shock; K92.0 Hematemesis; E43 Unspecified severe protein-calorie malnutrition; J90 Pleural effusion, not elsewhere classified; R64 Cachexia; E87.4 Mixed disorder of acid-base balance; J80 Acute respiratory distress syndrome; E87.2 Acidosis; D68.9 Coagulation defect, unspecified; E87.0 Hyperosmolality and hypernatremia; T81.31XA Disruption of external operation (surgical) wound, not elsewhere classified, initial encounter; K50.80 Crohn's disease of both small and large intestine without complications; Z68.1 Body mass index [BMI] 19.9 or less, adult; J98.19 Other pulmonary collapse; J95.811 Postprocedural pneumothorax; K26.9 Duodenal ulcer, unspecified as acute or chronic, without hemorrhage or perforation; K72.90 Hepatic failure, unspecified without coma; E86.0 Dehydration; K76.0 Fatty (change of) liver, not elsewhere classified; R62.7 Adult failure to thrive; Y84.8 Other medical procedures as the cause of abnormal reaction of the patient, or of later complication, without mention of misadventure at the time of the procedure; M19.90 Unspecified osteoarthritis, unspecified site; F32.9 Major depressive disorder, single episode, unspecified; K21.0 Gastro-esophageal reflux disease with esophagitis; I10 Essential (primary) hypertension; F17.210 Nicotine dependence, cigarettes, uncomplicated; E87.6 Hypokalemia; J44.9 Chronic obstructive pulmonary disease, unspecified; K44.9 Diaphragmatic hernia without obstruction or gangrene; N20.0 Calculus of kidney; K80.20 Calculus of gallbladder without cholecystitis without obstruction; K70.30 Alcoholic cirrhosis of liver without ascites; D64.9 Anemia, unspecified; T38.0X5A Adverse effect of glucocorticoids and synthetic analogues, initial encounter; D69.6 Thrombocytopenia, unspecified; D72.823 Leukemoid reaction; E83.42 Hypomagnesemia; E87.70 Fluid overload, unspecified; F10.10 Alcohol abuse, uncomplicated; K29.70 Gastritis, unspecified, without bleeding; R53.81 Other malaise; Z90.49 Acquired absence of other specified parts of digestive tract
CPT/HCPCS: 32551; 36430; 36600; 70450; 71045; 71250; 74176; 74177; 76705; 76937; 80048; 80053; 80074; 80076; 80202; 81001; 82140; 82565; 82805; 83036; 83605; 83690; 83735; 84100; 84132; 84145; 84155; 84439; 84443; 84484; 85007; 85014; 85018; 85025; 85027; 85610; 86850; 86900; 86901; 86920; 87040; 87070; 87106; 87205; 87389; 87493; 87641; 88305; 93005; 93975; 94150; 94640; 94664; 94667; 96365; 96367; 96368; C9113; G0475; J1120; J1450; J1650; J1720; J1940; J2060; J2250; J2270; J2310; J2354; J2370; J2543; J2920; J3370; J3430; J3475; J3480; J7030; J7040; J7050; J7060; J7070; J7120; J7121; J7512; J7613; P9016; P9045; Q9963; Q9967

== ENCOUNTER 2017-12-26 12:41 | Inpatient (IN) ==
[2018-01-06] MEDS ORDERED: ALPRAZolam 0.5 MG Tablet ONE (22:47)
[2018-01-07] MEDS ORDERED: ALPRAZolam 0.5 MG Tablet PO PRN
[2018-01-07] MEDS ORDERED: Haloperidol Inj 5 MG/ML Ampul IM PRN
[2018-01-07] MEDS ORDERED: Bisacodyl 10 MG Supp RECTAL PRN
[2018-01-07] MEDS ORDERED: LORazepam 1 MG Tablet PO PRN
[2018-01-07] MEDS ORDERED: Naloxone Inj 0.4 MG/ML Vial IV.PUSH PRN
[2018-01-07 08:11] LABS: Baso # (Auto) 0.1 th/mm3 (0.0-0.2); Baso % (Auto) 0.5 % (0.0-2.0); Eos # (Auto) 0.2 th/mm3 (0.0-0.4); Eos % (Auto) 0.9 % (0.0-4.0); Hemoglobin 7.3 gm/dL (13.0-17.0); Lymph # (Auto) 2.5 th/mm3 (1.0-4.8); Lymph % (Auto) 13.7 % (9.0-44.0); Mean Corpuscular HGB Conc 33.2 % (32.0-36.0); Mean Corpuscular Hemoglobin 28.8 pg (27.0-34.0); Mean Corpuscular Volume 86.8 fL (80.0-100.0); Mean Platelet Volume 7.7 fL (7.0-11.0); Mono % (Auto) 10.7 % (0.0-8.0); Neut # (Auto) 13.6 th/mm3 (1.8-7.7); Neut % (Auto) 74.2 % (16.0-70.0); Platelet Count 144 th/mm3 (150-450); Red Blood Count 2.53 mil/mm3 (4.50-5.90); Red Cell Distribution Width 19.6 % (11.6-17.2); White Blood Count 18.4 th/mm3 (4.0-11.0)
[2018-01-07 09:40] LABS: Acanthocytes 1+; Ovalocytes 1+; Toxic Granulation 1+
[2018-01-07] MEDS: predniSONE 10 MG Tablet PO SCH (12:00)
[2018-01-07] MEDS: Folic Acid 1 MG Tablet PO SCH (12:00)
[2018-01-07] MEDS: QUEtiapine 25 MG Tablet PO SCH ×2 (12:00→20:41)
[2018-01-07] MEDS: Heparin - SQ 10,000 UNITS/ML Vial SQ SCH ×2 (12:02→20:40)
--- NOTE | 2018-01-07 15:20 | P.DCO ---
- Physical Therapy Order: Evaluate and treat - Occupational Therapy Order: Evaluate and treat - Home Health Nursing Order: Medical education - Certification I have seen patient Goran Portillo on 01/07/18. My clinical findings support the need for the requested home health care services because: Limited mobility due to disease progression I certify that my clinical findings support that this patient is homebound because: Unsafe to leave home unassisted
--- NOTE | 2018-01-07 15:30 | P.PN ---
Subjective Interval history: Patient wants to go home, he told me his mother had surgery, I discussed with patient case managergrain manager on discharging him today if social arrangement is done Physical Exam Vital signs: Vital Signs 01/07/18 00:00 01/07/18 01:55 01/07/18 04:00 Temperature 98.5 F 98.5 F Pulse Rate 84 85 83 Respiratory Rate 20 16 Blood Pressure 106/58 L 100/59 L Pulse Oximetry 95 95 01/07/18 08:48 01/07/18 12:16 Temperature 97.8 F 97.8 F Pulse Rate 83 106 H Respiratory Rate 18 18 Blood Pressure 102/56 L 104/55 L Pulse Oximetry 97 98 Intake & Output 01/06/18 01/07/18 01/07/18 18:59 06:59 18:59 Intake Total 720 / 720 Output Total 225 / 225 Balance 495 / 495 Weight 52.6 kg Intake: Oral 720 / 720 Output: Urine 225 / 225 Narrative: GENERAL: 52 y/o debilitated make in no apparent distress. CARDIOVASCULAR: RRR, no gallops, or rubs. RESPIRATORY: Fair air entry bilaterally. No W, R, or R GASTROINTESTINAL: Abdomen soft, non-tender, nondistended. Positive bowel sounds MUSCULOSKELETAL: Extremities without clubbing, cyanosis, or edema. Pedal pulses appreciated NEUROLOGICAL: Awake and alert. Moves all extremity. Normal speech.no focal neurological deficit Results - Labs CBC & Chem 7: 01/07/18 06:31 01/05/18 09:22 Laboratory Results - last 24 hr 01/04/18 01/04/18 01/04/18 06:55 14:57 14:57 WBC 21.1 H RBC 2.99 L Hgb 8.7 L Hct 26.1 L MCV 87.2 MCH 29.1 MCHC 33.3 RDW 19.4 H Plt Count 175 MPV 7.1 Prelim Diff (Auto) Neut % (Auto) 88.1 H Lymph % (Auto) 7.0 L [place] % (Auto) 4.3 Eos % (Auto) 0.2 Baso % (Auto) 0.4 Neut # (Auto) 18.6 H Lymph # (Auto) 1.5 [place] # (Auto) 0.9 Eos # (Auto) 0.0 Baso # (Auto) 0.1 CBC Comment DIFF FINAL WBC Differential Diff Scan Total Counted Neutrophils % (Manual) Band Neutrophils % Lymphocytes % Monocytes % Neutrophils # (Manual) Promyelocytes Differential Comment Toxic Granulation Platelet Estimate Plt Morphology Comment Ovalocytes Acanthocytes (Spur) Keratocytes PT 15.2 H INR 1.5 Sodium 141 Potassium 3.7 Chloride 111 H Carbon Dioxide 19.5 L Anion Gap 11 BUN 7 Creatinine 0.61 Estimated GFR 139 Random Glucose 113 H Calcium 8.1 L Ammonia 01/05/18 01/05/18 01/05/18 09:22 09:22 09:22 WBC 17.3 H RBC 2.95 L Hgb 8.6 L Hct 25.4 L MCV 86.3 MCH 29.1 MCHC 33.7 RDW 18.9 H Plt Count 149 L MPV 7.0 Prelim Diff (Auto) Neut % (Auto) 75.6 H Lymph % (Auto) 14.3 [place] % (Auto) 8.5 H Eos % (Auto) 0.6 Baso % (Auto) 1.0 Neut # (Auto) 13.1 H Lymph # (Auto) 2.5 [place] # (Auto) 1.5 H Eos # (Auto) 0.1 Baso # (Auto) 0.2 CBC Comment AUTO DIFF WBC Differential Diff Scan Total Counted 100 Neutrophils % (Manual) 85 H Band Neutrophils % 3 Lymphocytes % 7 L Monocytes % 4 Neutrophils # (Manual) 15.4 H Promyelocytes 1 H Differential Comment FINAL DIFF MANUAL Toxic Granulation Platelet Estimate LOW L Plt Morphology Comment NORMAL Ovalocytes 1+ H Acanthocytes (Spur) Keratocytes OCC PT INR Sodium 142 Potassium 3.7 Chloride 111 H Carbon Dioxide 19.2 L Anion Gap 12 BUN 6 L Creatinine 0.52 L Estimated GFR 167 Random Glucose 64 L Calcium 7.9 L Ammonia 91 H 01/06/18 01/07/18 12:26 06:31 WBC 19.9 H 18.4 H RBC 2.83 L 2.53 L Hgb 8.2 L 7.3 L Hct 24.6 L 22.0 L MCV 86.8 86.8 MCH 28.8 28.8 MCHC 33.2 33.2 RDW 19.1 H 19.6 H Plt Count 141 L 144 L MPV 7.3 7.7 Prelim Diff (Auto) Slide review pending Neut % (Auto) 85.8 H 74.2 H Lymph % (Auto) 6.8 L 13.7 [place] % (Auto) 6.7 10.7 H Eos % (Auto) 0.4 0.9 Baso % (Auto) 0.3 0.5 Neut # (Auto) 17.1 H 13.6 H Lymph # (Auto) 1.4 2.5 [place] # (Auto) 1.3 H 2.0 H Eos # (Auto) 0.1 0.2 Baso # (Auto) 0.1 0.1 CBC Comment DIFF FINAL WBC Differential . Diff Scan Auto diff confirmed Total Counted Neutrophils % (Manual) Band Neutrophils % Lymphocytes % Monocytes % Neutrophils # (Manual) Promyelocytes Differential Comment . Toxic Granulation 1+ H Platelet Estimate Plt Morphology Comment Ovalocytes 1+ H Acanthocytes (Spur) 1+ H Keratocytes PT INR Sodium Potassium Chloride Carbon Dioxide Anion Gap BUN Creatinine Estimated GFR Random Glucose Calcium Ammonia Assessment and Plan - Plan 01/04: WBC 25K ,. hemoglobin 7.7 and potassium 3.3 yesterday I will order to repeat those labs today 01/05:No acute issue patient resting in bed, WBC dropped to 17.3 today hemoglobin improved to 8.6 ammonia is 91 continue lactulose, discussed with the patient disposition he wants to go with his parents I also discussed that with the patient case manager, palliative care following with the father 01/06: wbc jun yeterday , cont ff , dc planning in progress , d/w CM 01/07: Plan on discharge his parents today, patient is fairly stable, hemoglobin stable, WBC mostly due to prednisone and it has been chronic since the last admission, however he told me his mother just had surgery and not ready to take him, discussed that with the patient case manager A/P: Altered mental status/hepatic encephalopathy> improving. history of Crohn's disease -Continue Xifaxan and lactulose -GI has placed the patient on Rocephin, Prednisone 10 mg daily -Blood cultures negative so far. -Brain MRI with no acute abnormality, there are several small foci of demyelination. These are nonspecific. Could be secondary to small vessel ischemic changes versus other underlying demyelination conditions. -Neurology following acute respiratory failure- resolved. -stable off oxygen. Electrolyte abnormalities--> continue to follow electrolyte protocol - Hypernatremia- resolved. -monitor ammonia level. -continue lactulose. -received D5W/ bicarbonate -nephrology following. Witnessed seizure -EEG shows generalized slowing which is due to sleep or mild encephalopathy - Neuro is following Alcohol abuse -[facility] protocol Psychiatric Disorder/[place] Act - psych consulted: Seen and evaluated the patient. Olvera act lifted. Patient was started on Seroquel 25 mg twice daily to help with anxiety and sleep. Does not meet inpatient psych criteria Chronic abdominal wound -Wound care has been consulted DVT prophylaxis: SCD's
[2018-01-08] MEDS: Heparin - SQ 10,000 UNITS/ML Vial SQ SCH (10:00)
[2018-01-08] MEDS: predniSONE 10 MG Tablet PO SCH (10:01)
[2018-01-08] MEDS: QUEtiapine 25 MG Tablet PO SCH (10:01)
[2018-01-08] MEDS: Folic Acid 1 MG Tablet PO SCH (10:01)
--- NOTE | 2018-01-08 12:13 | P.PNWCN ---
Wound Care Nurse Consult Description: Wound consult ordered by Mignon HOYOS for wound management. Communicated with: Mayra RIOS, Recommendation: 1. Cleanse midline abdomen wound with normal saline pat dry 2. Apply Calazime cream to periwound with dressing changes. 3. Apply Maxorb AG cut to fit wound base cover with dry gauze,secure with boarder gauze dressing. 4. Change dressing every 3-5 days or as needed for dislodgement/exudate management. 5. Sign and date all dressings. 6. Pleas ensure patient has abdominal binder on at all times. Additional information: Patient was seen today by junior underwriter for wound management.Patient alert and oriented x4 sitting up in bed resting.Dressing removed from midline abdomen wound cleansed with normal saline pat dry.Patient noted to have a partial thickness wound s/p surgical site to left/midline abdomen measuring ~6.0cm x 4.5cm x 0.1cm wound bed is 100% moist pink.Wound edges are well defined even with wound base .Scant serous exudate noted without odor.Periwound macerated to ~75% blanchable intact.Moist to dry dressing applied till Maxorb AG available to floor staff. Wound/Pressure Injury - Wound Left Lower Anterior Abdomen Wound Assessment: Ongoing Wound Type: Skin Tear Is This a Chronic Wound: No Requested from Provider a Wound Care Consult: No Wound Bed Appearance: [place] (moist pink) Surrounding Tissue Appearance: Erythema Surrounding Tissue Temperature: Warm Drainage Description: Serous (scant) Drainage Amount: Scant Drainage Odor: No Odor Dressing Status: Dry & Intact Cleansing Solution: Saline Cover Dressing: primapore Wound Dressing Change Date: 01/08/18
--- NOTE | 2018-01-08 13:31 | P.PNPAL ---
Reason for Visit Reason for visit: a. To assist with evaluation and management of symptoms including:Follow up on encephalopathy/confusion b. To assist medical decision maker(s) with: better understanding of current medical conditions; weighing benefits/burdens of medical treatment options; making medical treatment decisions. Subjective Subjective/Interval History: Patient has been afebrile. No acute events overnight. No new labs. Follow up on patient encephalopathy/confusion. Patient is less confused. Alert and oriented x 3. Able to say he has crohns. Family/Friend Interactions: I spoke with father. Spoke about pt's capacity. spoke abut goals of care. Pt endorse he wants to go home. He did say he would want to come back to the hospital in case of acute event. I told father, this hospitalization really did not resolve all his chronic problems. Reviewed his predisposition, that he will decline again. I suspect he currently has capacity, but again, that may fluctuate in the future. Goals of care. They want to go home. Patient not ready for hospice, but should he decline again, family are amenable to reconsider. Pt's Father is very appreciative of palliative care visit. Advance Directives Living Will: Never completed Health Care Surrogate: Never completed Durable Power of Marble Rubber: Never completed Objective Vital Signs: Vital Signs 01/07/18 16:15 01/07/18 20:00 01/07/18 20:20 Temperature 97.8 F 98 F Pulse Rate 96 H 93 H 92 H Respiratory Rate 18 19 Blood Pressure 101/53 L 128/60 Pulse Oximetry 99 97 01/08/18 00:20 01/08/18 05:20 01/08/18 08:00 Temperature 97.9 F 98.9 F 97.9 F Pulse Rate 89 89 Respiratory Rate 20 20 17 Blood Pressure 120/59 L 118/64 111/55 L Pulse Oximetry 96 96 96 01/08/18 12:00 Temperature 97.9 F Pulse Rate 91 H Respiratory Rate 17 Blood Pressure 113/59 L Pulse Oximetry 98 Intake & Output 01/07/18 01/08/18 01/08/18 18:59 06:59 18:59 Intake Total 4350 / 4350 Balance 4350 / 4350 Weight 52.6 kg Intake: Oral 4350 / 4350 Other: # Voids 8 Date of Last Bowel Movement 01/08/18 01/08/18 # Bowel Movements 2 1 Physical Exam: CONSTITUTIONAL/GENERAL: not in any acute distress. CARDIOVASCULAR: Regular rate and rhythm without murmurs, gallops, or rubs. No JVD. Peripheral pulses symmetric. RESPIRATORY/CHEST: Symmetric, unlabored respirations. Clear to auscultation. Breath sounds equal bilaterally. No wheezes, rales, or rhonchi. GASTROINTESTINAL: Abdomen firm, mildly distended. Bandage over midline surgical wound. No obvious masses. Bowel sounds present. MUSCULOSKELETAL: Extremities without clubbing, cyanosis, or edema. No joint tenderness or effusion noted. No calf tenderness. No mottling or clubbing. NEUROLOGICAL: Awake, alert. Motor and sensory grossly within normal limits. Follows simple commands. Moves all extremities. Oriented to place person, year. PSYCHIATRIC: No longer agitated. Diagnostic Tests Laboratory: Laboratory Results - last 72 hr 01/04/18 01/04/18 01/04/18 06:55 14:57 14:57 WBC 21.1 H RBC 2.99 L Hgb 8.7 L Hct 26.1 L MCV 87.2 MCH 29.1 MCHC 33.3 RDW 19.4 H Plt Count 175 MPV 7.1 Prelim Diff (Auto) Neut % (Auto) 88.1 H Lymph % (Auto) 7.0 L [place] % (Auto) 4.3 Eos % (Auto) 0.2 Baso % (Auto) 0.4 Neut # (Auto) 18.6 H Lymph # (Auto) 1.5 [place] # (Auto) 0.9 Eos # (Auto) 0.0 Baso # (Auto) 0.1 CBC Comment DIFF FINAL WBC Differential Diff Scan Total Counted Neutrophils % (Manual) Band Neutrophils % Lymphocytes % Monocytes % Neutrophils # (Manual) Promyelocytes Differential Comment Toxic Granulation Platelet Estimate Plt Morphology Comment Ovalocytes Acanthocytes (Spur) Keratocytes PT 15.2 H INR 1.5 Sodium 141 Potassium 3.7 Chloride 111 H Carbon Dioxide 19.5 L Anion Gap 11 BUN 7 Creatinine 0.61 Estimated GFR 139 Random Glucose 113 H Calcium 8.1 L Ammonia 01/05/18 01/05/18 01/05/18 09:22 09:22 09:22 WBC 17.3 H RBC 2.95 L Hgb 8.6 L Hct 25.4 L MCV 86.3 MCH 29.1 MCHC 33.7 RDW 18.9 H Plt Count 149 L MPV 7.0 Prelim Diff (Auto) Neut % (Auto) 75.6 H Lymph % (Auto) 14.3 [place] % (Auto) 8.5 H Eos % (Auto) 0.6 Baso % (Auto) 1.0 Neut # (Auto) 13.1 H Lymph # (Auto) 2.5 [place] # (Auto) 1.5 H Eos # (Auto) 0.1 Baso # (Auto) 0.2 CBC Comment AUTO DIFF WBC Differential Diff Scan Total Counted 100 Neutrophils % (Manual) 85 H Band Neutrophils % 3 Lymphocytes % 7 L Monocytes % 4 Neutrophils # (Manual) 15.4 H Promyelocytes 1 H Differential Comment FINAL DIFF MANUAL Toxic Granulation Platelet Estimate LOW L Plt Morphology Comment NORMAL Ovalocytes 1+ H Acanthocytes (Spur) Keratocytes OCC PT INR Sodium 142 Potassium 3.7 Chloride 111 H Carbon Dioxide 19.2 L Anion Gap 12 BUN 6 L Creatinine 0.52 L Estimated GFR 167 Random Glucose 64 L Calcium 7.9 L Ammonia 91 H 01/06/18 01/07/18 12:26 06:31 WBC 19.9 H 18.4 H RBC 2.83 L 2.53 L Hgb 8.2 L 7.3 L Hct 24.6 L 22.0 L MCV 86.8 86.8 MCH 28.8 28.8 MCHC 33.2 33.2 RDW 19.1 H 19.6 H Plt Count 141 L 144 L MPV 7.3 7.7 Prelim Diff (Auto) Slide review pending Neut % (Auto) 85.8 H 74.2 H Lymph % (Auto) 6.8 L 13.7 [place] % (Auto) 6.7 10.7 H Eos % (Auto) 0.4 0.9 Baso % (Auto) 0.3 0.5 Neut # (Auto) 17.1 H 13.6 H Lymph # (Auto) 1.4 2.5 [place] # (Auto) 1.3 H 2.0 H Eos # (Auto) 0.1 0.2 Baso # (Auto) 0.1 0.1 CBC Comment DIFF FINAL WBC Differential . Diff Scan Auto diff confirmed Total Counted Neutrophils % (Manual) Band Neutrophils % Lymphocytes % Monocytes % Neutrophils # (Manual) Promyelocytes Differential Comment . Toxic Granulation 1+ H Platelet Estimate Plt Morphology Comment Ovalocytes 1+ H Acanthocytes (Spur) 1+ H Keratocytes PT INR Sodium Potassium Chloride Carbon Dioxide Anion Gap BUN Creatinine Estimated GFR Random Glucose Calcium Ammonia Result Diagrams: 01/07/18 06:31 01/05/18 09:22 Microbiology: Laboratory Results - last 48 hr 01/04/18 01/04/18 01/04/18 06:55 14:57 14:57 WBC 21.1 H RBC 2.99 L Hgb 8.7 L Hct 26.1 L MCV 87.2 MCH 29.1 MCHC 33.3 RDW 19.4 H Plt Count 175 MPV 7.1 Prelim Diff (Auto) Neut % (Auto) 88.1 H Lymph % (Auto) 7.0 L [place] % (Auto) 4.3 Eos % (Auto) 0.2 Baso % (Auto) 0.4 Neut # (Auto) 18.6 H Lymph # (Auto) 1.5 [place] # (Auto) 0.9 Eos # (Auto) 0.0 Baso # (Auto) 0.1 CBC Comment DIFF FINAL WBC Differential Diff Scan Total Counted Neutrophils % (Manual) Band Neutrophils % Lymphocytes % Monocytes % Neutrophils # (Manual) Promyelocytes Differential Comment Toxic Granulation Platelet Estimate Plt Morphology Comment Ovalocytes Acanthocytes (Spur) Keratocytes PT 15.2 H INR 1.5 Sodium 141 Potassium 3.7 Chloride 111 H Carbon Dioxide 19.5 L Anion Gap 11 BUN 7 Creatinine 0.61 Estimated GFR 139 Random Glucose 113 H Calcium 8.1 L Ammonia 01/05/18 01/05/18 01/05/18 09:22 09:22 09:22 WBC 17.3 H RBC 2.95 L Hgb 8.6 L Hct 25.4 L MCV 86.3 MCH 29.1 MCHC 33.7 RDW 18.9 H Plt Count 149 L MPV 7.0 Prelim Diff (Auto) Neut % (Auto) 75.6 H Lymph % (Auto) 14.3 [place] % (Auto) 8.5 H Eos % (Auto) 0.6 Baso % (Auto) 1.0 Neut # (Auto) 13.1 H Lymph # (Auto) 2.5 [place] # (Auto) 1.5 H Eos # (Auto) 0.1 Baso # (Auto) 0.2 CBC Comment AUTO DIFF WBC Differential Diff Scan Total Counted 100 Neutrophils % (Manual) 85 H Band Neutrophils % 3 Lymphocytes % 7 L Monocytes % 4 Neutrophils # (Manual) 15.4 H Promyelocytes 1 H Differential Comment FINAL DIFF MANUAL Toxic Granulation Platelet Estimate LOW L Plt Morphology Comment NORMAL Ovalocytes 1+ H Acanthocytes (Spur) Keratocytes OCC PT INR Sodium 142 Potassium 3.7 Chloride 111 H Carbon Dioxide 19.2 L Anion Gap 12 BUN 6 L Creatinine 0.52 L Estimated GFR 167 Random Glucose 64 L Calcium 7.9 L Ammonia 91 H 01/06/18 01/07/18 12:26 06:31 WBC 19.9 H 18.4 H RBC 2.83 L 2.53 L Hgb 8.2 L 7.3 L Hct 24.6 L 22.0 L MCV 86.8 86.8 MCH 28.8 28.8 MCHC 33.2 33.2 RDW 19.1 H 19.6 H Plt Count 141 L 144 L MPV 7.3 7.7 Prelim Diff (Auto) Slide review pending Neut % (Auto) 85.8 H 74.2 H Lymph % (Auto) 6.8 L 13.7 [place] % (Auto) 6.7 10.7 H Eos % (Auto) 0.4 0.9 Baso % (Auto) 0.3 0.5 Neut # (Auto) 17.1 H 13.6 H Lymph # (Auto) 1.4 2.5 [place] # (Auto) 1.3 H 2.0 H Eos # (Auto) 0.1 0.2 Baso # (Auto) 0.1 0.1 CBC Comment DIFF FINAL WBC Differential . Diff Scan Auto diff confirmed Total Counted Neutrophils % (Manual) Band Neutrophils % Lymphocytes % Monocytes % Neutrophils # (Manual) Promyelocytes Differential Comment . Toxic Granulation 1+ H Platelet Estimate Plt Morphology Comment Ovalocytes 1+ H Acanthocytes (Spur) 1+ H Keratocytes PT INR Sodium Potassium Chloride Carbon Dioxide Anion Gap BUN Creatinine Estimated GFR Random Glucose Calcium Ammonia Assessment and Plan - Disease Oriented Problem List (1) Encephalopathy (2) History of recent surgery (3) Alcohol abuse (4) Hepatic cirrhosis (5) Anemia (6) COPD (chronic obstructive pulmonary disease) (7) Acute Crohn's disease - Symptom Scale (1) Confusion 0-10 Scale: Unable to quantify (seem to have resolved today.) Pertinent Non-Medical Issues: Psychosocial: , no children, unemployed, lives with parents. Spiritual: The patient's father reports that the patient was an active member of a local [employer] zoroast[employer]ism until his divorce a few years ago, and he has had no connection with zoroastrianism or clergy since then. The patient's father believes the patient would want a eyelet cutter visit. Legal: The patient lacks capacity for decision-making, and it is uncertain whether he will regain capacity. According to [place] statutes, his mother and father are the decision-making proxy's for him. Ethical issues impacting care: Important Contacts: Patient's father: Bill Home: Prognosis: The patient has been declining for the past year or 2, and has had repeated hospitalizations and recurrent complications. I concur with Dr. Floyd, with all of his underlying serious diagnoses, it is likely that the decline will continue and that he is in his last months of life. He would be appropriate for hospice services if the goals become comfort oriented. Code Status: Full Code Plan: == Capicity- He does have capacity to make medical decisions, but I suspect that does fluctuate. == Should he loses capacity to make medical decisions, pt's parents are the health care proxy. ==Goals of care. They want to go home. Patient not ready for hospice, but should he decline again, family are amenable to reconsider. Pt's Father is very appreciative of palliative care visit. ==SYMPTOMS: The patient's encephalopathy continues. It has been chronic for most of the past few months, and is likely multifactorial, not solely related to hepatic encephalopathy. The patient uses Lortab for pain at home, but has not had pain issues here at the hospital. No further medication recommendations at this time. Encephalopathy seems to be better and has resolved for the time being. ==Palliative Care will continue to follow the patient during this hospitalization, and we will keep in touch with the patient's father. Attestation Attestation: To help prompt me to consider important information that might be impacting today's encounter and assessment, information from prior notes written by myself or my colleagues may have been "brought forward" into today's note. My signature on this note, however, is an attestation that I personally performed the exam, history, and/or decision-making noted today, and, unless otherwise indicated, the interactions with patient, family, and staff as well as the review of records all occurred today. I also attest that the listed assessment and stated plan reflect my best clinical judgment today based on the combination of historical information, prior notes, and today's exam/ interactions. When time spent is documented, it refers only to time spent today by the signer, or if indicated, combined time spent today by collaborating physician/nurse practitioner.
--- NOTE | 2018-01-08 15:24 | P.PNIM ---
Subjective Interval history: Discussed with the patient his discharge planning he wants to go home with his parents Discussed with egg caser patient's insurance does not cover for home health care Physical Exam Vital signs: Vital Signs 01/07/18 16:15 01/07/18 20:00 01/07/18 20:20 Temperature 97.8 F 98 F Pulse Rate 96 H 93 H 92 H Respiratory Rate 18 19 Blood Pressure 101/53 L 128/60 Pulse Oximetry 99 97 01/08/18 00:20 01/08/18 05:20 01/08/18 08:00 Temperature 97.9 F 98.9 F 97.9 F Pulse Rate 89 89 Respiratory Rate 20 20 17 Blood Pressure 120/59 L 118/64 111/55 L Pulse Oximetry 96 96 96 01/08/18 12:00 Temperature 97.9 F Pulse Rate 91 H Respiratory Rate 17 Blood Pressure 113/59 L Pulse Oximetry 98 Intake & Output 01/07/18 01/08/18 01/08/18 18:59 06:59 18:59 Intake Total 4350 / 4350 Balance 4350 / 4350 Weight 52.6 kg Intake: Oral 4350 / 4350 Other: # Voids 8 Date of Last Bowel Movement 01/08/18 01/08/18 # Bowel Movements 2 1 Narrative: GENERAL: This is a debilitated 52 years old in no apparent distress. CARDIOVASCULAR: RRR, no gallops, or rubs. RESPIRATORY: Fair air entry bilaterally. No W, R, or R GASTROINTESTINAL: Abdomen soft, non-tender, nondistended. Positive bowel sounds MUSCULOSKELETAL: Extremities without clubbing, cyanosis, or edema. Pedal pulses appreciated NEUROLOGICAL: Awake and alert. Moves all extremity. Normal speech.no focal neurological deficit Results - Labs CBC & Chem 7: 01/07/18 06:31 01/05/18 09:22 Assessment and Plan - Plan 01/04: WBC 25K ,. hemoglobin 7.7 and potassium 3.3 yesterday I will order to repeat those labs today 01/05:No acute issue patient resting in bed, WBC dropped to 17.3 today hemoglobin improved to 8.6 ammonia is 91 continue lactulose, discussed with the patient disposition he wants to go with his parents I also discussed that with the egg caser, palliative care following with the father 01/06: wbc jun 25k yeterday , cont ff , dc planning in progress , d/w CM 7/1: Plan on discharge his parents today, patient is fairly stable, hemoglobin stable, WBC mostly due to prednisone and it has been chronic since the last admission, however he told me his mother just had surgery and not ready to take him, discussed that with the egg caser 01/08: Plan to discharge home with his parents with home health care however per egg casermanager customer does not cover A/P: Altered mental status/hepatic encephalopathy> improving. history of Crohn's disease -Continue Xifaxan and lactulose -GI has placed the patient on Rocephin, Prednisone 10 mg daily -Blood cultures negative so far. -Brain MRI with no acute abnormality, there are several small foci of demyelination. These are nonspecific. Could be secondary to small vessel ischemic changes versus other underlying demyelination conditions. -Neurology following acute respiratory failure- resolved. -stable off oxygen. Electrolyte abnormalities--> continue to follow electrolyte protocol - Hypernatremia- resolved. -monitor ammonia level. -continue lactulose. -received D5W/ bicarbonate -nephrology following. Witnessed seizure -EEG shows generalized slowing which is due to sleep or mild encephalopathy - Neuro is following Alcohol abuse -[facility] protocol Psychiatric Disorder/[place] Act - psych consulted: Seen and evaluated the patient. [place] act lifted. Patient was started on Seroquel 25 mg twice daily to help with anxiety and sleep. Does not meet inpatient psych criteria Chronic abdominal wound -Wound care has been consulted DVT prophylaxis: SCD's
--- NOTE | 2018-01-08 15:29 | P.DS ---
Date of admission: 12/26/17 16:20 Primary care physician: UNKNOWN Brief History from admission: Patient is a 52-year-old gentleman brought in by ambulance after being found wandering around and someone called. Patient was found near a [facility] crawling around outside. When they got to him they realize that he was a gentleman that family had called after he had eloped from his facility. Apparently patient was not wanting to come in on his own and he was placed under a [place] act. En route had a witnessed generalized tonic-clonic seizure lasted about 20 seconds was given IV fluids en route did not give any medications due to the seizure being so short. Patient's very poor historian still confused not sure what facility came from very limited history from the patient. Per chart review has history of arthritis and asthma Crohn's disease gastritis and ascites as well as alcohol abuse and hiatal hernias and COPD and history of pancreatitis. Patient is also had a colon resection due to his Crohn 's disease also has had a TIPS procedure patient is noted to have hepatic encephalopathy Again history is very limited from the patient since he is quite confused and encephalopathic DS: Diagnosis - Discharge Diagnosis (1) Acute Crohn's disease Status: Acute (2) Alcohol abuse Status: Acute (3) Anemia Status: Acute (4) COPD (chronic obstructive pulmonary disease) Status: Acute (5) Encephalopathy Status: Acute (6) Hepatic cirrhosis Status: Acute DS: Medications - Discharge Medications Prescriptions: lactulose 30 ml PO QID #40 ml pantoprazole 40 mg PO DAILY #30 tab quetiapine 25 mg PO BID 60 Days #120 tab DS: Summary Hospital Course: 55 years old chronically ill looking patient with history of alcohol abuse came with altered mental status encephalopathy he has a history of Crohn's disease GI consulted patient placed on prednisone Rocephin xifaxan brain MRI showed demyelination several small foci neurology also consulted mostly due to small vessel ischemic changes, EEG showed generalized slowing due to sleep or mild encephalopathy Patient also had acute respiratory failure electrolyte abnormality. Psychiatry also consulted adjusted medication, Wade acted lifted 52 years old debilitated male - Time Spent with Patient Total time spent providing and/or coordinating discharge services: Exam Vital signs: Vital Signs 01/07/18 16:15 01/07/18 20:00 01/07/18 20:20 Temperature 97.8 F 98 F Pulse Rate 96 H 93 H 92 H Respiratory Rate 18 19 Blood Pressure 101/53 L 128/60 Pulse Oximetry 99 97 01/08/18 00:20 01/08/18 05:20 01/08/18 08:00 Temperature 97.9 F 98.9 F 97.9 F Pulse Rate 89 89 Respiratory Rate 20 20 17 Blood Pressure 120/59 L 118/64 111/55 L Pulse Oximetry 96 96 96 01/08/18 12:00 Temperature 97.9 F Pulse Rate 91 H Respiratory Rate 17 Blood Pressure 113/59 L Pulse Oximetry 98 Intake & Output 01/07/18 01/08/18 01/08/18 18:59 06:59 18:59 Intake Total 4350 / 4350 Balance 4350 / 4350 Weight 52.6 kg Intake: Oral 4350 / 4350 Other: # Voids 8 Date of Last Bowel Movement 01/08/18 01/08/18 # Bowel Movements 2 1 Narrative: GENERAL: 52 years old debilitated male in no acute distress CARDIOVASCULAR: RRR, no gallops, or rubs. RESPIRATORY: Fair air entry bilaterally. No W, R, or R GASTROINTESTINAL: Abdomen soft, non-tender, nondistended. Positive bowel sounds MUSCULOSKELETAL: Extremities without clubbing, cyanosis, or edema. Pedal pulses appreciated NEUROLOGICAL: Awake and alert. Moves all extremity. Normal speech.no focal neurological deficit Results Procedures completed during hospitalization: See below for details Discharge Plan - Discharge Disposition Patient Disposition: 01 Discharge Home - Discharge Condition Condition: Stable - Discharge Order Discharge Orders: Discharge Order (Routine); Ordered 01/08/18 Ordered By: Flor Fontanez - Discharge Details Anticipated Discharge Date: 01/08/18 - Physicians Team Primary Care Provider: UNKNOWN, Attending Provider: Flor Fontanez Other Providers: Elizabeth Pino MD ; Ann-Marie Dobson MD ; Erin Lopez MD ; Jus Lawler MD ; Matteo Rizzo MD ; Laquita Mclaughlin MD - Rxs /Orders / Referrals /Forms Prescriptions: New folic acid 1 mg Tablet 1 mg PO DAILY RF: 0 lactulose 20 gram/30 mL Solution 30 ml PO QID Qty: 40 RF: 0 pantoprazole 40 mg Tablet,Delayed Release (Dr/Ec) 40 mg PO DAILY Qty: 30 RF: 0 quetiapine 25 mg Tablet 25 mg PO BID 60 Days Qty: 120 RF: 0 Continue alprazolam 0.5 mg Tablet 0.5 mg PO DAILY PRN (Reason: Anxiety) furosemide 40 mg Tablet 40 mg PO BID prednisone 5 mg Tablets,Dose Pack 5 mg PO DIRECTED rifaximin 200 mg Tablet 400 mg PO Q8HR Discontinued hydrocodone-acetaminophen 7.5-325 mg Tablet 1 tab PO Q4HR PRN (Reason: Pain) pantoprazole 40 mg Tablet,Delayed Release (Dr/Ec) 40 mg PO Q12HR Referrals: Erin Lopez MD [Physician] - See Instructions (doctor office closed please call to make appt.) Moises Chou MD [Physician] - 01/12/18 (please call insurance doctor don't accecpt insurance anymore) UNKNOWN, [Primary Care Provider] - See Instructions (please call [facility] to make appt [phone]) - Discharge Instructions Additional Instructions: No prescriptions found in chart - Post Discharge Care Plan Care Plan Goals: Your Health Problems: Goals to Promote Your Health: * To prevent worsening of your condition * To maintain your health at the optimal level Directions to Meet Your Goals: * Take your medications as prescribed * Follow your dietary instruction * Follow activity as directed * Keep your appointments as scheduled * Take your immunizations and boosters as scheduled * If your symptoms worsen call your PCP * If no PCP go to Urgent Care or Emergency Room Smoking is dangerous to your health. Avoid second hand smoke. You may reach the 24-hour crisis hotline for domestic abuse at .
== END 2018-01-08 15:28 | disposition home or self-care (01) ==
LOC: N05 16:20
PROVIDERS: ADMIT Hospitalist; ATTEND Hospitalist

== ENCOUNTER 2018-01-26 16:03 | Observation (INO) ==
[2018-01-26] MEDS ORDERED: Sod Chloride 0.9% Inj 1,000 ML IV.SIG ONE (16:45)
--- NOTE | 2018-01-26 16:52 | ED ---
HPI General Chief complaint: Nausea/Vomiting/Diarrhea Stated complaint: GI Complaint Time Seen by Provider: 01/26/18 16:25 Source: patient and family Mode of arrival: ambulatory Limitations: no limitations History of Present Illness HPI narrative: 52yo M with PMH of COPD, cirrhosis, alcohol abuse, Crohn's disease was brought in by his father because his son is declining. Said he has not been eating much and has generalized weakness. Has chronic abdominal pain. Denies any fever, chest pain, sob, focal weakness or numbness. Pt was admitted for hepatic encphalopathy earlier this month and palliative care was consulted. Pt was not ready for hospice at the time. Related Data Home Medications Medication Instructions Recorded Confirmed furosemide 40 mg PO BID 01/06/18 01/26/18 prednisone 5 mg PO DIRECTED 01/06/18 01/26/18 rifaximin 400 mg PO Q8HR 01/06/18 01/26/18 hydrocodone-acetaminophen 2 tab PO Q6-8H PRN 01/26/18 01/26/18 promethazine 12.5 mg PO Q6H PRN 01/26/18 01/26/18 Previous Rx's Medication Instructions Recorded pantoprazole 40 mg PO DAILY #30 tab 01/07/18 quetiapine 25 mg PO BID 60 Days #120 tab 01/07/18 Allergies Allergy/AdvReac Type Severity Reaction Status Date / Time tetanus toxoid, adsorbed Allergy Severe Nausea/Vomi Verified 01/26/18 16:37 ting Review of Systems ROS Unobtainable All other systems reviewed negative except as stated in HPI [facility] Medical History Medical History Ascites (Acute) Ascites (Acute) COPD (chronic obstructive pulmonary disease) (Acute) Cirrhosis (Acute) Crohn's disease (Acute) Hepatic encephalopathy (Acute) Pancreatitis (Acute) Surgical History Surgical History S/P colon resection (Acute) Social History Social History Substance History: Past History Smoking Status: Former smoker How Often Do You Have a Drink Containing Alcohol: Never Recent Travel in [place] within the Last 8 Weeks: No Recent Out of Country Travel within the Last 8 Weeks: No Substance Abuse Detail Alcohol: Substance Use Type Other:: ETOH Substance Use Status: Sustained Remission Route Used Substance Abuse: By Mouth Immunization History Tetanus Immunization: Unsure Hx Influenza Vaccine This Season: No Exam Narrative Exam Narrative: GENERAL: 52yo M who is cachetic. SKIN: Focused skin assessment warm/dry. HEAD: Atraumatic. Normocephalic. EYES: Pupils equal and round. No scleral icterus. No injection or drainage. ENT: No nasal bleeding or discharge. Mucous membranes pink and moist. NECK: Trachea midline. No JVD. CARDIOVASCULAR: Regular rate and rhythm. No murmur appreciated. RESPIRATORY: No accessory muscle use. Clear to auscultation. Breath sounds equal bilaterally. GASTROINTESTINAL: Abdomen soft, +Chronic abdominal wound. No tenderness on exam. No distension. MUSCULOSKELETAL: No obvious deformities. No clubbing. No cyanosis. No edema. NEUROLOGICAL: AAOx2. No obvious cranial nerve deficits. Motor grossly within normal limits. Normal speech. Course Initial Documented Vital Signs Temperature 97.3 F L 01/26/18 16:15 Pulse Rate 103 H 01/26/18 16:15 Respiratory Rate 14 01/26/18 16:15 Blood Pressure 97/57 L 01/26/18 16:15 Pulse Oximetry 100 01/26/18 16:15 Last Documented Vital Signs Temperature 97.3 F L 01/26/18 16:15 Pulse Rate 74 01/26/18 21:49 Respiratory Rate 18 01/26/18 21:49 Blood Pressure 88/48 L 01/26/18 21:49 Pulse Oximetry 97 01/26/18 21:49 Critical Care Time Critical Care Time: Yes Total Critical Care Time: 50 Attestation: Aggregate critical care time was 50 minutes. Time to perform other separately billable procedures was not included in the critical care time. My time did not include minutes spent treating any other patients simultaneously or on activities that did not directly contribute to the patient's treatment. The services I provided to this patient were to treat and/or prevent clinically significant deterioration that could result in: cardiovascular collapse or . I provided critical care services requiring my management, as noted below: Chart data review, documentation time, medication orders and management, vital sign assessments/reviewing monitor data, ordering and reviewing lab tests, ordering and interpreting/reviewing x-rays and diagnostic studies, care of the patient and discussion of the patient with the admitting physicians. Medical Decision Making MDM Narrative Medical decision making narrative: 52yo M who is chronically ill here with failure to thrive. Pt has chronic abdominal pain and has not been eating. Labs reviewed, leukocytosis at 16.2 but this is lower than last admission. H/H low at 9.3/27.9. K is 2.2, initially unable to obtain IV access and pt refuse to stay. So he was given 50mEq KCl PO. However, later his father convinced him to stay and I was able to place IV in right EJ. UA showed large leukocyte. WBC 51-189. Pt given ceftriaxone. Ammonia is elevated at 238. Pt given lactulose. He is awake and alert and answers questions. His father said he has not taken his lactulose in a few days. CT a/p showed stable postsurgical changes. 4mm nonobstructing stone in lower pole collecting system of right kidney. Discussed with web marketing analyst Dr. Echavarria who is familiar with this patient and accepted to his service. While still in the ED, Dr. Echavarria contacted Dr. Barron and he said that pt can go directly to hospice tonight. Pt will be transferred to hospice instead of ICU. Differential Diagnosis Differential Diagnosis: Electrolyte abnormality vs. dehydration vs. sepsis vs. cirrhosis Lab Data Result diagrams: 01/26/18 17:15 01/26/18 17:15 Lab Results 01/26/18 01/26/18 01/26/18 Range/Units 16:30 17:15 17:15 CBC w Diff Auto diff final WBC 16.2 H (4.0-11.0) th/mm3 RBC 3.16 L (4.50-5.90) mil/mm3 Hgb 9.3 L (13.0-17.0) gm/dL Hct 27.9 L (39.0-51.0) % MCV 88.3 (80.0-100.0) fL MCH 29.3 (27.0-34.0) pg MCHC 33.2 (32.0-36.0) % RDW 17.0 (11.6-17.2) % Plt Count 342 D (150-450) th/mm3 MPV 7.4 (7.0-11.0) fL Neut % (Auto) 75.3 H (16.0-70.0) % Lymph % (Auto) 15.7 (9.0-44.0) % Izard % (Auto) 6.1 (0.0-8.0) % Eos % (Auto) 1.8 (0.0-4.0) % Baso % (Auto) 1.1 (0.0-2.0) % Neut # (Auto) 12.2 H (1.8-7.7) th/mm3 Lymph # (Auto) 2.5 (1.0-4.8) th/mm3 Izard # (Auto) 1.0 H (0.0-0.9) th/mm3 Eos # (Auto) 0.3 (0.0-0.4) th/mm3 Baso # (Auto) 0.2 (0.0-0.2) th/mm3 WBC Differential . Differential Comment . Sodium 137 (136-145) meq/L Potassium 2.2 L* (3.5-5.1) meq/L Chloride 109 H (98-107) meq/L Carbon Dioxide 17.8 L (21.0-32.0) meq/L Anion Gap 10 (5-15) meq/L BUN 14 (7-18) mg/dL Creatinine 1.00 (0.60-1.30) mg/dL Estimated GFR 78 L (>89) mL/min Random Glucose 116 H (74-106) mg/dL Calcium 6.9 L* (8.5-10.1) mg/dL Prot Corrected Calcium 8.4 L (8.5-10.1) mg/dL Total Bilirubin 1.5 H (0.2-1.0) mg/dL AST 40 H (15-37) U/L ALT 35 (12-78) U/L Alkaline Phosphatase 269 H (45-117) U/L Ammonia (11-32) mcmol/L Total Protein 4.3 L (6.4-8.2) g/dL Albumin 1.6 L (3.4-5.0) g/dL Lipase 251 (73-393) U/L Urine Color Yellow (Yellw/Straw) Urine Clarity Slightly cloudy (Clear) Urine pH 7.5 (5.0-8.5) Ur Specific [place] Less/equal 1.005 (1.002-1.035) Urine Protein Negative (Neg-Trace) mg/dL Urine Glucose (UA) Negative (Negative) mg/dL Urine Ketones Negative (Negative) mg/dL Urine Occult Blood Small H (Negative) Urine Nitrate Negative (Negative) Urine Bilirubin Negative (Negative) Urine Urobilinogen 0.2 (Less than 2) mg/dL Ur Leukocyte Esterase Large H (Negative) Urine RBC 4-15 H (0-3) /hpf Urine WBC 51-189 H (0-5) /hpf Ur Squamous Epith Cells 0-5 (0-5) /hpf Urine Bacteria Occasional H (None) /hpf Serum Alcohol Less than 3 (0-5) mg/dL 01/26/18 Range/Units 17:15 CBC w Diff WBC (4.0-11.0) th/mm3 RBC (4.50-5.90) mil/mm3 Hgb (13.0-17.0) gm/dL Hct (39.0-51.0) % MCV (80.0-100.0) fL MCH (27.0-34.0) pg MCHC (32.0-36.0) % RDW (11.6-17.2) % Plt Count (150-450) th/mm3 MPV (7.0-11.0) fL Neut % (Auto) (16.0-70.0) % Lymph % (Auto) (9.0-44.0) % Izard % (Auto) (0.0-8.0) % Eos % (Auto) (0.0-4.0) % Baso % (Auto) (0.0-2.0) % Neut # (Auto) (1.8-7.7) th/mm3 Lymph # (Auto) (1.0-4.8) th/mm3 Izard # (Auto) (0.0-0.9) th/mm3 Eos # (Auto) (0.0-0.4) th/mm3 Baso # (Auto) (0.0-0.2) th/mm3 WBC Differential Differential Comment Sodium (136-145) meq/L Potassium (3.5-5.1) meq/L Chloride (98-107) meq/L Carbon Dioxide (21.0-32.0) meq/L Anion Gap (5-15) meq/L BUN (7-18) mg/dL Creatinine (0.60-1.30) mg/dL Estimated GFR (>89) mL/min Random Glucose (74-106) mg/dL Calcium (8.5-10.1) mg/dL Prot Corrected Calcium (8.5-10.1) mg/dL Total Bilirubin (0.2-1.0) mg/dL AST (15-37) U/L ALT (12-78) U/L Alkaline Phosphatase (45-117) U/L Ammonia 238 H (11-32) mcmol/L Total Protein (6.4-8.2) g/dL Albumin (3.4-5.0) g/dL Lipase (73-393) U/L Urine Color (Yellw/Straw) Urine Clarity (Clear) Urine pH (5.0-8.5) Ur Specific [place] (1.002-1.035) Urine Protein (Neg-Trace) mg/dL Urine Glucose (UA) (Negative) mg/dL Urine Ketones (Negative) mg/dL Urine Occult Blood (Negative) Urine Nitrate (Negative) Urine Bilirubin (Negative) Urine Urobilinogen (Less than 2) mg/dL Ur Leukocyte Esterase (Negative) Urine RBC (0-3) /hpf Urine WBC (0-5) /hpf Ur Squamous Epith Cells (0-5) /hpf Urine Bacteria (None) /hpf Serum Alcohol (0-5) mg/dL Imaging Data Radiologist's impression: Abdomen/Pelvis CT 01/26/18 17:15 CONCLUSION: 1. Stable postsurgical changes in the region of the cecum/ascending colon. Marked air distention throughout the colon suggesting a hypodynamic or adynamic ileus. Air distention is seen down to the rectal vault. 2. CT findings of cirrhosis with a TIPS stent. 3. Fluid distention of the gastric lumen. 4. 4 mm nonobstructing stone in the lower pole collecting system of the right kidney. Discharge Plan Discharge Disposition Patient Disposition: 50 Hospice/Home Discharge Condition Condition: Critical Discharge Order Discharge Orders: Discharge Order (Routine); Ordered 01/26/18 Ordered By: Mena Gonzalez Discharge Details Diagnosis: Encephalopathy Physicians Team ED Provider: Mena Gonzalez Primary Care Provider: Primary Care Valeri Garsia Attending Provider: Tesfaye Echavarria Discharge Interventions Interventions: Vital Signs Last Done: 01/26/18 19:26 Status ED Status: Admitted Observation Patient
[2018-01-26 16:57] LABS: Bilirubin,Urine Negative (Negative); Clarity,Urine Slightly Cloudy (Clear); Color,Urine Yellow (Yellw/Straw); Glucose,Urine (UA) Negative (Negative); Leukocyte Esterase,Urine Large (Negative); Nitrite,Urine Negative (Negative); PH,Urine 7.5 (5.0-8.5); Specific Gravity,Urine Less/Equal 1.005 (1.002-1.035); Urobilinogen,Urine 0.2 mg/dL (Less than 2)
[2018-01-26 17:04] LABS: Squamous Epithelial Cell,Urine 0-5 /hpf (0-5); WBC,Urine 51-189 /hpf (0-5)
[2018-01-26 17:05] LABS: Bacteria,Urine Occasional /hpf
[2018-01-26 17:18] LABS: Baso # (Auto) 0.2 th/mm3 (0.0-0.2); Baso % (Auto) 1.1 % (0.0-2.0); Eos # (Auto) 0.3 th/mm3 (0.0-0.4); Eos % (Auto) 1.8 % (0.0-4.0); Hematocrit 27.9 % (39.0-51.0); Hemoglobin 9.3 gm/dL (13.0-17.0); Lymph # (Auto) 2.5 th/mm3 (1.0-4.8); Lymph % (Auto) 15.7 % (9.0-44.0); Mean Corpuscular HGB Conc 33.2 % (32.0-36.0); Mean Corpuscular Hemoglobin 29.3 pg (27.0-34.0); Mean Corpuscular Volume 88.3 fL (80.0-100.0); Mean Platelet Volume 7.4 fL (7.0-11.0); Mono % (Auto) 6.1 % (0.0-8.0); Neut # (Auto) 12.2 th/mm3 (1.8-7.7); Neut % (Auto) 75.3 % (16.0-70.0); Platelet Count 342 th/mm3 (150-450); Red Blood Count 3.16 mil/mm3 (4.50-5.90); White Blood Count 16.2 th/mm3 (4.0-11.0)
[2018-01-26 17:33] LABS: Alanine Aminotransferase 35 U/L (12-78); Albumin 1.6 g/dL (3.4-5.0); Anion Gap 10 meq/L (5-15); Aspartate Aminotransferase 40 U/L (15-37); Blood Urea Nitrogen 14 mg/dL (7-18); Calcium 6.9 mg/dL (8.5-10.1); Carbon Dioxide 17.8 meq/L (21.0-32.0); Chloride 109 meq/L (98-107); Glomerular Filtration Rate 78 mL/min (>89); Glucose,Random 116 mg/dL (74-106); Lipase 251 U/L (73-393); Sodium 137 meq/L (136-145)
[2018-01-26 17:34] LABS: Potassium 2.2 meq/L (3.5-5.1)
[2018-01-26 17:42] LABS: Alkaline Phosphatase 269 U/L (45-117); Total Protein 4.3 g/dL (6.4-8.2)
[2018-01-26] MEDS ORDERED: Potassium Chloride 20 MEQ Pwd Pkt PO ONE (17:51)
[2018-01-26] MEDS ORDERED: Potassium Chloride 25 MEQ Effervescent Tablet PO ONE (17:54)
--- NOTE | 2018-01-26 18:02 | CT ---
EXAM DATE: 01/26/2018 5:53 PM EDT AGE/SEX: 52 years / Male INDICATIONS: Diffuse abdominal pain, generalized weakness. CLINICAL DATA: This is the patient's initial encounter. Patient reports that signs and symptoms have been present for 3 days and indicates a pain score of 5/10. MEDICAL/SURGICAL HISTORY: Cirrhosis. Pancreatitis. Crohn disease. Ascites, hepatic encephalo favio, COPD. Colon resection. RADIATION DOSE: 5.51 CTDI (mGy) COMPARISON: [facility], CT ABDOMEN & PELVIS W CONTRAST, 12/26/2017. . TECHNIQUE: Multiple contiguous axial images were obtained through the abdomen. Images were obtained using multiple row detector helical technique. Using automated exposure control and adjustment of the mA and/or kV according to patient size, radiation dose was kept as low as reasonably achievable to o btain optimal diagnostic quality images. DICOM format image data is available electronically for rev iew and comparison. FINDINGS: Lower Lungs: Scarring or atelectasis above the left hemidiaphragm. Lung bases are otherwise clear. Liver: Nodular, cirrhotic appearing liver with a TIPS stent. Without contrast, cannot determine paten cy. Spleen: Homogeneous density without enlargement. Pancreas: Unremarkable without mass or calcification. Kidneys: 4 mm nonobstructing stone in the lower pole collecting system of the right kidney. Kidneys are otherwise radiographically intact Adrenal Glands: Unremarkable. Aorta: The aorta and proximal iliac vessels are grossly unremarkable without aneurysmal dilation. Bowel/Mesentery: There is fluid distention of the gastric lumen. Fairly significant air distention o f the colon. Postsurgical changes in the region of the cecum with a ring of surgical ha. Small a mount of ascites predominantly around the convexity of the liver. Abdominal Wall: Intact. Retroperitoneum: No evidence of adenopathy in the retrocrural, para-aortic, or deep pelvic regions. Bladder: Contours are smooth. Reproductive Organs: No abnormal masses or calcifications seen. Inguinal: The inguinal region is unremarkable without evidence of adenopathy. Bony Structures: Unremarkable. CONCLUSION: 1. Stable postsurgical changes in the region of the cecum/ascending colon. Marked air distention thr oughout the colon suggesting a hypodynamic or adynamic ileus. Air distention is seen down to the rect al vault. 2. CT findings of cirrhosis with a TIPS stent. 3. Fluid distention of the gastric lumen. 4. 4 mm nonobstructing stone in the lower pole collecting system of the right kidney. Electronically signed by: Jarrell Coburn MD 01/26/2018 6:01 PM EDT
[2018-01-26] MEDS ORDERED: Morphine Inj 4 MG/ML Vial IV.PUSH PRN (19:50)
--- NOTE | 2018-01-26 20:12 | P.HPCC ---
History of Present Illness Service: Critical Care Medicine Primary Care Physician: No Primary Care Physician Chief Complaint: altered mental status History of Present Illness: This is a 52yM well-known to me from a recent critical illness and hospital admission. He has a history of end-stage liver disease, s/p TIPS, and complicated by severe hepatic encephalopathy. He was recently admitted s/p colectomy for Crohn's disease, course complicated by wound dehiscence, severe ARDS, respiratory failure. During that hospital admission he had multiple episodes of hepatic encephalopathy and multiorgan failure. Palliative care was consulted at that time, but discussions with the patient and his family were to continue aggressive care at that time. He was discharged in late December 2017 and re-presents today with worsening altered mental status. Since that time, the patient appears to have lost 50 lbs. I had a long discussion with his mother and father who are his medical decision makers and his caretakers. they have aggressively tried to increase his PO intake and nutrition, but have been unsuccessful. They have also noted significant functional decline in the last few weeks. The patient is very altered, but does state he remembers me from prior admission. He is confused at times, but he keeps telling me "I just don't want to hurt anymore." He also says "I want to taste good food again. I just want to eat something and feel better." In the emergency department, he has a Cr of 1.0 which is double his baseline Cr of 0.5. He has an ammonia level > 200. He has evidence of elevated LFTs. His MELD is 13. INR 1.5. WBC 16k which is stable from hospital discharge. u/a positive. CT abd/pelvis only significant for ileus. No additional information is available from the patient due to his mental status. ROS is very limited and only positive for generalized abdominal pain. Inpatient Certification: I certify that the inpatient services were ordered in accordance with Medicare regulations governing the order. This includes certification that hospital inpatient services are reasonable and necessary and in the case of services not specified as inpatient-only under 42 CFR 419.22(n), that they are appropriately provided as inpatient services in accordance to with the 2-midnight benchmark under 43 CFR 412.3(e) Plans for Post Hospital Care: Hospice Review of Systems unobtainable due to mental status PMFSH - History History Provided By: Patient, Family Member - Medical History Medical History: Medical History (Last Updated 01/26/18 @ 16:33 by Analilia Cm RN) Ascites Ascites COPD (chronic obstructive pulmonary disease) Cirrhosis Crohn's disease Hepatic encephalopathy Pancreatitis - Surgical History Surgical History: Surgical History (Last Updated 01/26/18 @ 16:33 by Analilia Cm RN) S/P colon resection - Tobacco History Smoking Status: Former smoker - Alcohol History How Often Do You Have a Drink Containing Alcohol: Never - Substance Use History Substance History: Past History - Substance Use Type Alcohol Type: ETOH Status: Sustained Remission Route Used: By Mouth - Travel History Recent Travel in the [place] Within the Last 8 Weeks: No Recent Travel Out of the Country Within the Last 8 Weeks: No - Immunization History Tetanus Immunization: Unsure Hx Influenza Vaccine This Season: No Medications and Allergies Active Medications: Active Medications Lorazepam (Ativan Inj) 2 mg IV.PUSH Q15M PRN PRN Reason: see below Morphine Sulfate (Morphine Inj) 4 mg IV.PUSH Q15M PRN PRN Reason: SEE LABEL COMMENTS Allergies Allergy/AdvReac Type Severity Reaction Status Date / Time tetanus toxoid, adsorbed Allergy Severe Nausea/Vomi Verified 01/26/18 16:37 ting Home Medications Medication Instructions Recorded Confirmed Type furosemide 40 mg PO BID 01/06/18 01/26/18 History prednisone 5 mg PO DIRECTED 01/06/18 01/26/18 History rifaximin 400 mg PO Q8HR 01/06/18 01/26/18 History hydrocodone-acetaminophen 2 tab PO Q6-8H PRN 01/26/18 01/26/18 History promethazine 12.5 mg PO Q6H PRN 01/26/18 01/26/18 History Results - Labs CBC & Chem 7: 01/26/18 17:15 01/26/18 17:15 Labs: Short CBC 01/26/18 Range/Units 17:15 WBC 16.2 H (4.0-11.0) th/mm3 Hgb 9.3 L (13.0-17.0) gm/dL Hct 27.9 L (39.0-51.0) % Plt Count 342 D (150-450) th/mm3 BMP 01/26/18 17:15 Sodium 137 Potassium 2.2 L* Chloride 109 H Carbon Dioxide 17.8 L BUN 14 Creatinine 1.00 Calcium 6.9 L* Liver Function 01/26/18 Range/Units 17:15 Total Bilirubin 1.5 H (0.2-1.0) mg/dL AST 40 H (15-37) U/L ALT 35 (12-78) U/L Alkaline Phosphatase 269 H (45-117) U/L Albumin 1.6 L (3.4-5.0) g/dL Urine 01/26/18 Range/Units 16:30 Urine Color Yellow (Yellw/Straw) Urine Clarity Slightly cloudy (Clear) Urine pH 7.5 (5.0-8.5) Ur Specific [place] Less/equal 1.005 (1.002-1.035) Urine Protein Negative (Neg-Trace) mg/dL Urine Glucose (UA) Negative (Negative) mg/dL - Imaging Impressions Abdomen/Pelvis CT 01/26/18 17:15 CONCLUSION: 1. Stable postsurgical changes in the region of the cecum/ascending colon. Marked air distention throughout the colon suggesting a hypodynamic or adynamic ileus. Air distention is seen down to the rectal vault. 2. CT findings of cirrhosis with a TIPS stent. 3. Fluid distention of the gastric lumen. 4. 4 mm nonobstructing stone in the lower pole collecting system of the right kidney. Exam Vital signs: Vital Signs 01/26/18 16:15 01/26/18 17:33 01/26/18 19:26 Temperature 36.3 C L Pulse Rate 103 H 83 Respiratory Rate 14 18 Blood Pressure 97/57 L 94/57 L 92/53 L Pulse Oximetry 100 96 Narrative: gen: frail cachectic middle-aged male who appears much older than stated age, lying in bed in distress. heent: severe temporal wasting. mucous membranes dry. neck: no jvd. trachea midline. chest: room air. mildly labored. cv: normal rate, regular rhythm. sinus. borderline hypotension, SBP low 90s. abd: scaphoid. soft. diffusely tender to palpation. no guarding or rebound. extr: significant muscle wasting. no edema. neuro: RASS -2. confused. CAM+. oriented to person only. follows intermittent commands. not capacitated. Caprini VTE Risk Assessment Caprini VTE Risk Assessment: Moderate/High Risk (score >= 2) Caprini Risk Assessment Model: Point Value = 1 Point Value = 2 Point Value = 3 Point Value = 5 Age 41-60 Minor surgery BMI > 25 kg/m2 Swollen legs Varicose veins or History of unexplained or recurrent spontaneous Oral contraceptives or hormone replacement Sepsis (< 1 month) Serious lung disease, including pneumonia (< 1 month) Abnormal pulmonary function Acute myocardial infarction Congestive heart failure (< 1 month) History of inflammatory bowel disease Medical patient at bed rest Age 61-74 Arthroscopic surgery Major open surgery (> 45 min) Laparoscopic surgery (> 45 min) Malignancy Confined to bed (> 72 hours) Immobilizing plaster cast Central venous access Age >= 75 History of VTE Family history of VTE Factor V Leiden Prothrombin [id number] Lupus anticoagulant Anticardiolipin antibodies Elevated serum homocysteine Heparin-induced thrombocytopenia Other congenital or acquired thrombophilia Stroke (< 1 month) Elective arthroplasty Hip, pelvis, or leg fracture Acute spinal cord injury (< 1 month) Prophylaxis Regimen: Total Risk Factor Score Risk Level Prophylaxis Regimen 0-1 Low Early ambulation 2 Moderate Order ONE of the following: *Sequential Compression Device (SCD) *Heparin 5000 units SQ BID 3-4 Higher Order ONE of the following medications: *Heparin 5000 units SQ TID *Enoxaparin/Lovenox 40 mg SQ daily (WT < 150 kg, CrCl > 30 mL/min) *Enoxaparin/Lovenox 30 mg SQ daily (WT < 150 kg, CrCl > 10-29 mL/min) *Enoxaparin/Lovenox 30 mg SQ BID (WT < 150 kg, CrCl > 30 mL/min) AND/OR *Sequential Compression Device (SCD) 5 or more Highest Order ONE of the following medications: *Heparin 5000 units SQ TID (Preferred with Epidurals) *Enoxaparin/Lovenox 40 mg SQ daily (WT < 150 kg, CrCl > 30 mL/min) *Enoxaparin/Lovenox 30 mg SQ daily (WT < 150 kg, CrCl > 10-29 mL/min) *Enoxaparin/Lovenox 30 mg SQ BID (WT < 150 kg, CrCl > 30 mL/min) AND *Sequential Compression Device (SCD) Assessment and Plan - Assessment and Plan Plan: Assessment: 52yM with ESLD, hepatic encephalopathy, failure to thrive, and now with multi-organ failure. Multiple recent prior palliative care discussions confirm that he was hospice appropriate. He has clearly declined since that time, and I do not think aggressive measures serve to extend his quality or quantity of life, but rather add suffering to whatever life-span he has left. I discussed this at length with his mother and father, and they agree with my assessment. they wish to pursue hospice at a care center. I have placed a hospice consult. In the interim, we will aim for palliative pain and anxiety control until hospice can admit him to their care center. Active Problems: Acute hepatic encephalopathy Acute kidney injury Likely Acute hepatorenal syndrome, unknown type I vs. type II Acute liver injury superimposed on end-stage liver disease Urinary tract infection Coagulopathy secondary to liver disease Severe abdominal pain Non-obstructive colonic ileus Plan: morphine and ativan prn hospice consult DNR code status.
== END 2018-01-26 23:38 | disposition hospice, home (50) ==
LOC: PHED 16:03 → PHEDA 16:03 → INTOOBSV 19:00 → PHEDA 19:00
PROVIDERS: ADMIT Internal Medicine Critical Care Medicine; ATTEND Internal Medicine Critical Care Medicine
DX: K74.60 Unspecified cirrhosis of liver; N39.0 Urinary tract infection, site not specified; G89.29 Other chronic pain; Z66 Do not resuscitate; K72.00 Acute and subacute hepatic failure without coma; K56.7 Ileus, unspecified; K76.7 Hepatorenal syndrome; N17.9 Acute kidney failure, unspecified; Z87.891 Personal history of nicotine dependence; J44.9 Chronic obstructive pulmonary disease, unspecified; R62.7 Adult failure to thrive; D68.4 Acquired coagulation factor deficiency; R64 Cachexia